=== PATIENT | male | born 1955 | race Caucasian/White ===

== ENCOUNTER 2021-03-04 11:37 | Outpatient (CLI) | payer MEDICARE, MEDICAID, SELFPAY ==
--- NOTE | 2021-03-04 11:50 | USCV_ITS ---
GleasonMarlo bearden Age: 65 Gender: M : 1955 Exam Date: 03/04/2021 12:20 Ordering Phys: Horace Concepcion MD Technologist: Lena Ralph Exam Location: [facility] [place] Indication: LV FUNCTION BP: 120 / 60 HR: 65 Rhythm: Sinus Technical Quality: Technically difficult study MEASUREMENTS (Male / Female) Normal Values 2D ECHO LV Diastolic Diameter PLAX 4.1 cm 4.2 - 5.9 / 3.9 - 5.3 cm LV Systolic Diameter PLAX 2.8 cm IVS Diastolic Thickness 1.2 cm 0.6 - 1.0 / 0.6 - 0.9 cm IVS Systolic Thickness 1.8 cm LVPW Diastolic Thickness 1.1 cm 0.6 - 1.0 / 0.6 - 0.9 cm LVPW Systolic Thickness 1.3 cm RV Chamber Size 3.5 cm LVOT Diameter 2.0 cm LV Ejection Fraction 2D Teich 59.6 % LV Ejection Fraction MOD 2C 63.5 % LV Ejection Fraction 2C AL 64.8 % LA Diameter 2.8 cm LA Width 3.5 cm LA Height 3.7 cm RA Width 3.1 cm RA Height 3.8 cm Aorta at Sinotubular Diameter 2.4 cm M-MODE Aortic Annulus Diameter 2.9 cm LA Ao Ratio MM 1.0 MV E Point Septal Separation 0.3 cm DOPPLER AV Peak Velocity 99.0 cm/s LVOT Peak Velocity 87.0 cm/s AV Area Cont Eq vti 2.8 cm squared AV Area Cont Eq pk 2.8 cm squared MV Area PHT 4.0 cm squared Mitral E to A Ratio 0.9 MV E' Velocity 36.5 cm/s Mitral E to MV E' Ratio 5.0 Mitral E to LV E' Lateral Ratio 5.1 Mitral E to LV E' Septal Ratio 4.8 TR Peak Velocity 264.0 cm/s TR Peak Gradient 27.9 mmHg Right Atrial Pressure 3.0 mmHg Pulmonary Artery Systolic Pressu 30.9 mmHg PV Peak Velocity 92.0 cm/s RV Acceleration Time 0.1 s RV Ejection Time 0.2 s RV AcT/ET 0.2 FINDINGS Left Ventricle Normal left ventricular size. LV systolic function is normal with EF of 55-60%. No regional wall motion abnormalities. Right Ventricle The right ventricle is normal in size and function. Right Atrium The right atrium is normal in size. Left Atrium The left atrium is normal in size. Mitral Valve Grossly normal. Trace mitral regurgitation Aortic Valve Structurally normal aortic valve without significant sclerosis or stenosis. There is no aortic regurgitation. Tricuspid Valve Structurally normal tricuspid valve without significant stenosis or regurgitation. Insufficient TR jet to calculate RVSP Pulmonic Valve Not well visualized Pericardium Normal pericardium without effusion. Aorta Normal ascending aorta dimension. CONCLUSIONS LV systolic function is normal with EF of 55-60% Trace mitral regurgitation Compared to prior echocardiogram from 2017, no significant changes are noted Jw Guillory MD (Electronically Signed) Final Date: 06 March 2021 20:17 S
--- NOTE | 2021-03-04 11:50 | XR_ITS ---
WS: [id number] Exam: XR chest 2V* [id number] Date/Time of Exam: 03/04/2021 12:20 PM Reason For Exam: rule out pneumonia Comparison 10/08/2017. Extensive bilateral pulmonary fibrosis and scarring. Bilateral pleural thickening noted. The lungs ar e fully inflated. Heart size is normal. The mediastinum and regional bony elements are unremarkable. No obvious acute pulmonary infiltrates are seen. XR/XR chest 2V* [id number] IMPRESSION: 1. Extensive bilateral pulmonary parenchymal scarring and fibrosis with bilater al chronic pleural thickening. 2. No obvious acute pulmonary infiltrate identified.
== END 2021-03-04 11:38 | disposition home or self-care (01) ==
PROVIDERS: PCP Family Medicine; Visit Provider Internal Medicine Pulmonary Disease
DX: R06.00 Dyspnea, unspecified (principal); J18.9 Pneumonia, unspecified organism; I34.0 Nonrheumatic mitral (valve) insufficiency
CPT/HCPCS: 71046; 93306

== ENCOUNTER 2021-05-07 21:26 | Inpatient (IN) | payer MEDICARE, MEDICAID, SELFPAY ==
[2021-05-07 21:27] VITALS: BP 117/70; PULSE 74; RESP 28; TEMP 36.8; O2SAT 92; BMI 30.4
--- NOTE | 2021-05-07 21:41 | XRR_ITS ---
PROCEDURE INFORMATION: Exam: XR Chest Exam date and time: 05/07/2021 9:41 PM Age: 66 years old Clinical indication: Cough and shortness of breath TECHNIQUE: Imaging protocol: XR of the chest. Views: 1 view. COMPARISON: CR XR chest 2V* [id number] 03/04/2021 1:00 PM FINDINGS: Lungs: Interstitial and patulous opacities in the mid and lower lungs. Pleural spaces: Unremarkable. No pleural effusion. No pneumothorax. Heart/Mediastinum: Unremarkable. No cardiomegaly. Bones/joints: Unremarkable. XR/XR chest 1V portable [id number] IMPRESSION: Interstitial and patulous opacities in the mid and lower lungs suspicious for multifocal pneumonia.
--- NOTE | 2021-05-07 21:41 | ECG_ITS ---
[facility] Test Date: 2021-05-07 Pat Name: Marlo Gleason Department: Room: Gender: Male Hostess: : 1955 Requested By: Nestor Delacruz Order Number: [id number] Joy MD: Tino Martell M.D. Measurements Intervals [place] Rate: 78 P: 68 ID: [id number] QRS: 87 QRSD: 102 T: 52 QT: 354 QTc: 404 Interpretive Statements SINUS RHYTHM WITH FIRST DEGREE AV BLOCK WITH OCCASIONAL SUPRAVENTRICULAR PREMATURE COMPLEXES Compared to ECG 03/01/2018 11:11:53 Atrial abnormality no longer present Electronically Signed On 05-08-2021 19:31:05 CDT by Tino Martell M.D. [id number]
--- NOTE | 2021-05-07 21:42 | W.ED.SOB ---
Documented by User: Nestor Delacruz MD 05/07/21 22:20 HPI - SOB/Dyspnea General: Chief Complaint: Shortness of Breath/Dyspnea Stated Complaint: SOB/COUGH Time Seen by Provider: 05/07/21 21:41 History of Present Illness: HPI Narrative: This patient is a 66-year-old male who presents to the emergency department complaint of shortness of breath. Patient does have a history of COPD and there does wear oxygen at home. Patient states he has not had any increase in his oxygen intake. Patient does follow with pulmonology. Will do medical evaluation treat as needed. MD elicited complaint: shortness of breath Pertinent past history: COPD Onset (ago): day(s) Timing: constant Severity: moderate Exacerbating factors: nothing Relieving factors: nothing and oxygen Associated symptoms: Reports no associated symptoms; Deny abdominal pain, chest pain, extremity pain, fever(s), lightheadedness, nausea, palpitations or vomiting Review of Systems General: Reports: 10 or more systems reviewed and unremarkable except in HPI and below Const: Denies: fever(s), chills, body aches or fatigue Eyes: Denies: change in vision or blurry vision ENMT: Denies: throat pain, hoarseness or mouth pain Card: Denies: chest pain, palpitations, irregular heart rhythm, edema, swelling of feet/ankles or lightheadedness Resp: Reports: dyspnea; Denies: productive cough, non-productive cough, wheezing or pain on inspiration GI: Denies: abdominal pain, nausea or vomiting : Denies: flank pain, dysuria, urinary frequency, urinary urgency or urinary hesitancy Musc: Denies: neck pain, back pain, extremity pain, extremity swelling, joint pain, joint swelling, joint redness, joint warmth or limited range of motion Skin/Breast: Denies: rash, pruritus, erythema or skin tenderness Neuro: Denies: headache(s), numbness in extremities or weakness in extremities Psych: Denies: anxiety or depression PFSH ED PFSH: Medical History Anxiety disorder COPD (chronic obstructive pulmonary disease) Tobacco use Surgical History Presence of coronary angioplasty implant and graft Social History Smoking and tobacco status: current every day smoker cigarettes Years cigarettes smoked: 60 Quit status (tobacco): not considering quitting Second hand smoke exposure: Yes Smoking risk assessment/counseling performed?: Yes Alcohol intake: former Caregiver/support person: Yes Lives independently: No Housing: Prison Marital status: / service: No Current occupational status: disabled Pets and animals: Yes History of recent travel: No Current gender identity: Male Physical Exam Const: COMMON NORMALS: no acute distress, average body habitus, patient oriented x3, no limitations, healthy appearing, alert and well nourished HENMT: COMMON NORMALS: normocephalic, atraumatic, hearing grossly normal bilaterally, external ears normal, EAC's normal, TM's normal bilaterally, Normal external nose present, Normal nasal mucous membranes and turbinates present, moist oral mucous membranes, oropharynx normal, dentition normal and gingiva normal HEAD & SCALP: normocephalic and atraumatic NOSE: Normal external nose present and Normal nasal mucous membranes and turbinates present EXTERNAL EAR: Yes external ears normal EXTERNAL AUDITORY CANAL: EAC's normal TYMPANIC MEMBRANE: TM's normal bilaterally Neck/C-Spine: COMMON NORMALS: full ROM, no lymphadenopathy, supple, no meningeal signs, no JVD, Thyroid normal and No carotid bruits THYROID: Thyroid normal Chest: COMMONS NORMALS: normal inspection of the chest, normal palpation of entire chest wall, normal inspection of the breasts and normal palpation of the breasts Breast/axilla inspection: Yes normal inspection of the breasts BREAST/AXILLA PALPATION: Yes normal palpation of the breasts Resp: COMMON NORMALS: normal respiratory effort, No retractions, No use of accessory muscles, clear to auscultation bilaterally and percussion normal AUSCULTATION: clear to auscultation bilaterally PERCUSSION: percussion normal Cardio: COMMON NORMALS: no JVD, regular rate, regular rhythm, S1 normal heart sound present, S2 normal heart sound present, No gallops present (Cardio), No clicks present (Cardio), No murmurs present (Cardio), No rub (Cardio) and Peripheral pulses 2+ throughout RATE: regular rate RHYTHM: regular rhythm HEART SOUNDS: S1 normal heart sound present and S2 normal heart sound present PERIPHERAL PULSES: Peripheral pulses 2+ throughout GI: COMMON NORMALS: Normal to inspection, nondistended, normoactive bowel sounds present, Soft to palpation, non-tender, No hepatosplenomegaly present, no masses and no bruits PALPATION: Yes Soft to palpation and Yes No hepatosplenomegaly present : COMMON NORMALS: Yes no CVA tenderness BLADDER/KIDNEY EXAM: Yes no CVA tenderness Back/Pelvis: COMMON NORMALS: no CVA tenderness, thoracic and lumbar spine normal to inspection, no thoracic nor lumbar tenderness, thoraco-lumbar ROM normal and straight leg raise negative bilaterally Extremity: COMMON NORMALS: normal to inspection, full ROM, capillary refill normal, no joint enlargement, no clubbing, cyanosis or edema, no calf tenderness and no pedal edema Neuro: COMMON NORMALS: patient oriented x3 SENSORIUM/ORIENTATION: Yes alert MENINGEAL SIGNS: Yes no meningeal signs Course Vital Signs: Vital signs: Vital Signs Temperature 98.2 F 05/07/21 21:27 Pulse Rate 71 05/07/21 22:40 Respiratory Rate 22 H 05/07/21 22:40 Blood Pressure 126/68 05/07/21 22:40 Pulse Oximetry 96 05/07/21 22:40 MDM - SOB/Dyspnea Lab Data: Labs: Lab Results 05/07/21 05/07/21 05/07/21 Range/Units 22:03 22:10 22:10 WBC 14.5 H (4.0-10.0) 10^3/ uL RBC 4.78 (4.1-5.3) 10^6/u L Hgb 11.7 (11.7-16.6) g/dL Hct 39.3 L (42.0-52.0) % MCV 82.2 (80-94) fl MCH 24.5 L (28.0-34.0) pg MCHC 29.8 L (30.0-36.0) g/dL RDW 18.1 H (12.1-15.1) % Plt Count 278 (130-400) 10^3/c mm MPV 9.8 (7.4-10.4) fL Neut % (Auto) 69.8 % Lymph % (Auto) 13.6 % [place] % (Auto) 12.4 % Eos % (Auto) 3.0 % Baso % (Auto) 0.3 % Neut # (Auto) 10.12 H (1.8-7.7) 10^3/u L Lymph # (Auto) 2.0 (0.8-4.8) 10^3/u L [place] # (Auto) 1.8 H (0.2-0.9) 10^3/u L Eos # (Auto) 0.4 (0.0-0.8) 10^3/u L Baso # (Auto) 0.1 (0.0-0.1) 10^3/u L Nucleated RBC % (a uto) 0 % Nucleated RBCs # 0.0 /100WBC PT 13.80 (12.1-14.9) SECO NDS INR 1.03 (0.8-1.2) APTT 38.7 H (23.9-36.7) SECO NDS D-Dimer 0.60 H (0-0.59) ug/mIFE U Sodium (136-145) mmol/L Potassium (3.5-5.1) mmol/L Chloride (98-107) mmol/L Carbon Dioxide (22-29) mmol/L Anion Gap (5-19) BUN (8-23) mg/dL Creatinine (0.7-1.2) mg/dL GFR Calculation (90-130) mL/min Glucose (65-115) mg/dL Calculated Osmolal ity (285-295) mOsm/k g Calcium (8.5-10.5) mg/dL Total Bilirubin (0.15-1.2) mg/dL AST (0-40) U/L ALT (0-41) U/L Alkaline Phosphata se (40-130) IU/L Troponin T Gen 5 n g/L (0-15) ng/L NT-Pro-B Natriuret Pep (0-125) pg/mL Total Protein (6.6-8.7) g/dL Albumin (3.5-5.2) g/dL Globulin (1.3-4.6) g/dL Urine Color (Yellow) Urine Appearance (CLEAR) Urine pH (5-7) Ur Specific Gravit y (1.005-1.030) Urine Protein (Negative) Urine Glucose (UA) (Normal) Urine Ketones (Negative) Urine Blood (Negative) Urine Nitrate (Negative) Urine Bilirubin (Negative) Urine Urobilinogen (Negative) mg/dL Ur Leukocyte Denise ase (Negative) Urine RBC (0-2) /hpf Urine WBC (0-5) /hpf Ur Squamous Epith Cells (0-5) /hpf Amorphous Sediment /hpf Urine Bacteria (NONE) /hpf Urine Mucus /hpf SARS-CoV-2 Ag (Rap id) Negative (Negative) 05/07/21 05/07/21 05/07/21 Range/Units 22:10 22:10 22:35 WBC (4.0-10.0) 10^3/ uL RBC (4.1-5.3) 10^6/u L Hgb (11.7-16.6) g/dL Hct (42.0-52.0) % MCV (80-94) fl MCH (28.0-34.0) pg MCHC (30.0-36.0) g/dL RDW (12.1-15.1) % Plt Count (130-400) 10^3/c mm MPV (7.4-10.4) fL Neut % (Auto) % Lymph % (Auto) % [place] % (Auto) % Eos % (Auto) % Baso % (Auto) % Neut # (Auto) (1.8-7.7) 10^3/u L Lymph # (Auto) (0.8-4.8) 10^3/u L [place] # (Auto) (0.2-0.9) 10^3/u L Eos # (Auto) (0.0-0.8) 10^3/u L Baso # (Auto) (0.0-0.1) 10^3/u L Nucleated RBC % (a uto) % Nucleated RBCs # /100WBC PT (12.1-14.9) SECO NDS INR (0.8-1.2) APTT (23.9-36.7) SECO NDS D-Dimer (0-0.59) ug/mIFE U Sodium 136 (136-145) mmol/L Potassium 4.9 (3.5-5.1) mmol/L Chloride 100 (98-107) mmol/L Carbon Dioxide 28 (22-29) mmol/L Anion Gap 12.9 (5-19) BUN 26 H (8-23) mg/dL Creatinine 1.7 H (0.7-1.2) mg/dL GFR Calculation 40.8 L (90-130) mL/min Glucose 194 H (65-115) mg/dL Calculated Osmolal ity 292 (285-295) mOsm/k g Calcium 8.0 L (8.5-10.5) mg/dL Total Bilirubin 0.3 (0.15-1.2) mg/dL AST 7 (0-40) U/L ALT 7 (0-41) U/L Alkaline Phosphata se 102 (40-130) IU/L Troponin T Gen 5 n g/L 49 H (0-15) ng/L NT-Pro-B Natriuret Pep 1029 H (0-125) pg/mL Total Protein 6.6 (6.6-8.7) g/dL Albumin 3.2 L (3.5-5.2) g/dL Globulin 3.4 (1.3-4.6) g/dL Urine Color Straw (Yellow) Urine Appearance Clear (CLEAR) Urine pH 5 (5-7) Ur Specific Gravit y 1.010 (1.005-1.030) Urine Protein Trace (Negative) Urine Glucose (UA) Norm (Normal) Urine Ketones Negative (Negative) Urine Blood Neg (Negative) Urine Nitrate Negative (Negative) Urine Bilirubin Neg (Negative) Urine Urobilinogen Norm (Negative) mg/dL Ur Leukocyte Denise ase Negative (Negative) Urine RBC 15-25 H (0-2) /hpf Urine WBC 5-10 H (0-5) /hpf Ur Squamous Epith Cells 0-4 H (0-5) /hpf Amorphous Sediment 1+ /hpf Urine Bacteria Trace (NONE) /hpf Urine Mucus 2+ /hpf SARS-CoV-2 Ag (Rap id) (Negative) Imaging Data^: CXR: Attestation: I personally reviewed and interpreted this imaging study as follows: Radiologist's impression: IMPRESSION: Interstitial and patulous opacities in the mid and lower lungs suspicious for multifocal pneumonia. EKG Data^: EKG 1: Attestation: I personally reviewed and interpreted this EKG as follows: EKG Interpretation Date: 05/07/21 EKG interpretation time: 21:49 Prior EKG tracings: not available for review Interpretation: Sinus rhythm with a first-degree AV block nonspecific EKG changes heart rate 78 Discharge Plan Discharge Patient Disposition: Admitted As Inpatient Clinical Impression: Community acquired pneumonia Condition: Stable Coding Level of Care Code ED Hat Lacer for Chg Fwd Exam Comprehensive Documented by User: Rell Chen MD 05/08/21 00:05 HPI - SOB/Dyspnea General: Chief Complaint: Shortness of Breath/Dyspnea Stated Complaint: SOB/COUGH Time Seen by Provider: 05/07/21 21:41 PFSH ED PFSH: Medical History Anxiety disorder COPD (chronic obstructive pulmonary disease) Tobacco use Surgical History Presence of coronary angioplasty implant and graft Social History Smoking and tobacco status: current every day smoker cigarettes Years cigarettes smoked: 60 Quit status (tobacco): not considering quitting Second hand smoke exposure: Yes Smoking risk assessment/counseling performed?: Yes Alcohol intake: former Caregiver/support person: Yes Lives independently: No Housing: Prison Marital status: / service: No Current occupational status: disabled Pets and animals: Yes History of recent travel: No Current gender identity: Male Course Vital Signs: Vital signs: Vital Signs Temperature 98.2 F 05/07/21 21:27 Pulse Rate 71 05/07/21 22:40 Respiratory Rate 22 H 05/07/21 22:40 Blood Pressure 126/68 05/07/21 22:40 Pulse Oximetry 96 05/07/21 22:40 MDM - SOB/Dyspnea MDM Narrative: Medical decision making narrative: I took patient over from [place]. Patient does have a pneumonia. Rapid Covid was negative we will send off another Covid test. He is requiring increased oxygen here. Patient had IV antibiotics. Spoke to hospitalist will admit. Lab Data: Labs: Lab Results 05/07/21 05/07/21 05/07/21 Range/Units 22:03 22:10 22:10 WBC 14.5 H (4.0-10.0) 10^3/ uL RBC 4.78 (4.1-5.3) 10^6/u L Hgb 11.7 (11.7-16.6) g/dL Hct 39.3 L (42.0-52.0) % MCV 82.2 (80-94) fl MCH 24.5 L (28.0-34.0) pg MCHC 29.8 L (30.0-36.0) g/dL RDW 18.1 H (12.1-15.1) % Plt Count 278 (130-400) 10^3/c mm MPV 9.8 (7.4-10.4) fL Neut % (Auto) 69.8 % Lymph % (Auto) 13.6 % [place] % (Auto) 12.4 % Eos % (Auto) 3.0 % Baso % (Auto) 0.3 % Neut # (Auto) 10.12 H (1.8-7.7) 10^3/u L Lymph # (Auto) 2.0 (0.8-4.8) 10^3/u L [place] # (Auto) 1.8 H (0.2-0.9) 10^3/u L Eos # (Auto) 0.4 (0.0-0.8) 10^3/u L Baso # (Auto) 0.1 (0.0-0.1) 10^3/u L Nucleated RBC % (a uto) 0 % Nucleated RBCs # 0.0 /100WBC PT 13.80 (12.1-14.9) SECO NDS INR 1.03 (0.8-1.2) APTT 38.7 H (23.9-36.7) SECO NDS D-Dimer 0.60 H (0-0.59) ug/mIFE U Sodium (136-145) mmol/L Potassium (3.5-5.1) mmol/L Chloride (98-107) mmol/L Carbon Dioxide (22-29) mmol/L Anion Gap (5-19) BUN (8-23) mg/dL Creatinine (0.7-1.2) mg/dL GFR Calculation (90-130) mL/min Glucose (65-115) mg/dL Calculated Osmolal ity (285-295) mOsm/k g Calcium (8.5-10.5) mg/dL Total Bilirubin (0.15-1.2) mg/dL AST (0-40) U/L ALT (0-41) U/L Alkaline Phosphata se (40-130) IU/L Troponin T Gen 5 n g/L (0-15) ng/L NT-Pro-B Natriuret Pep (0-125) pg/mL Total Protein (6.6-8.7) g/dL Albumin (3.5-5.2) g/dL Globulin (1.3-4.6) g/dL Urine Color (Yellow) Urine Appearance (CLEAR) Urine pH (5-7) Ur Specific Gravit y (1.005-1.030) Urine Protein (Negative) Urine Glucose (UA) (Normal) Urine Ketones (Negative) Urine Blood (Negative) Urine Nitrate (Negative) Urine Bilirubin (Negative) Urine Urobilinogen (Negative) mg/dL Ur Leukocyte Denise ase (Negative) Urine RBC (0-2) /hpf Urine WBC (0-5) /hpf Ur Squamous Epith Cells (0-5) /hpf Amorphous Sediment /hpf Urine Bacteria (NONE) /hpf Urine Mucus /hpf SARS-CoV-2 Ag (Rap id) Negative (Negative) 05/07/21 05/07/21 05/07/21 Range/Units 22:10 22:10 22:35 WBC (4.0-10.0) 10^3/ uL RBC (4.1-5.3) 10^6/u L Hgb (11.7-16.6) g/dL Hct (42.0-52.0) % MCV (80-94) fl MCH (28.0-34.0) pg MCHC (30.0-36.0) g/dL RDW (12.1-15.1) % Plt Count (130-400) 10^3/c mm MPV (7.4-10.4) fL Neut % (Auto) % Lymph % (Auto) % [place] % (Auto) % Eos % (Auto) % Baso % (Auto) % Neut # (Auto) (1.8-7.7) 10^3/u L Lymph # (Auto) (0.8-4.8) 10^3/u L [place] # (Auto) (0.2-0.9) 10^3/u L Eos # (Auto) (0.0-0.8) 10^3/u L Baso # (Auto) (0.0-0.1) 10^3/u L Nucleated RBC % (a uto) % Nucleated RBCs # /100WBC PT (12.1-14.9) SECO NDS INR (0.8-1.2) APTT (23.9-36.7) SECO NDS D-Dimer (0-0.59) ug/mIFE U Sodium 136 (136-145) mmol/L Potassium 4.9 (3.5-5.1) mmol/L Chloride 100 (98-107) mmol/L Carbon Dioxide 28 (22-29) mmol/L Anion Gap 12.9 (5-19) BUN 26 H (8-23) mg/dL Creatinine 1.7 H (0.7-1.2) mg/dL GFR Calculation 40.8 L (90-130) mL/min Glucose 194 H (65-115) mg/dL Calculated Osmolal ity 292 (285-295) mOsm/k g Calcium 8.0 L (8.5-10.5) mg/dL Total Bilirubin 0.3 (0.15-1.2) mg/dL AST 7 (0-40) U/L ALT 7 (0-41) U/L Alkaline Phosphata se 102 (40-130) IU/L Troponin T Gen 5 n g/L 49 H (0-15) ng/L NT-Pro-B Natriuret Pep 1029 H (0-125) pg/mL Total Protein 6.6 (6.6-8.7) g/dL Albumin 3.2 L (3.5-5.2) g/dL Globulin 3.4 (1.3-4.6) g/dL Urine Color Straw (Yellow) Urine Appearance Clear (CLEAR) Urine pH 5 (5-7) Ur Specific Gravit y 1.010 (1.005-1.030) Urine Protein Trace (Negative) Urine Glucose (UA) Norm (Normal) Urine Ketones Negative (Negative) Urine Blood Neg (Negative) Urine Nitrate Negative (Negative) Urine Bilirubin Neg (Negative) Urine Urobilinogen Norm (Negative) mg/dL Ur Leukocyte Denise ase Negative (Negative) Urine RBC 15-25 H (0-2) /hpf Urine WBC 5-10 H (0-5) /hpf Ur Squamous Epith Cells 0-4 H (0-5) /hpf Amorphous Sediment 1+ /hpf Urine Bacteria Trace (NONE) /hpf Urine Mucus 2+ /hpf SARS-CoV-2 Ag (Rap id) (Negative) Discharge Plan Discharge Patient Disposition: Admitted As Inpatient Clinical Impression: Community acquired pneumonia Condition: Stable Coding Level of Care Code ED Hat Lacer for Naresh Fwd Exam Comprehensive
[2021-05-07] MEDS: dexamethasone 10 mg/mL INJ IV (22:23)
[2021-05-07 22:40] VITALS: BP 126/68; PULSE 71; RESP 22; O2SAT 96
[2021-05-07 22:41] LABS: INR 1.03 (0.8-1.2)
[2021-05-07 22:42] LABS: Partial Thromboplastin Time 38.7 SECONDS (23.9-36.7)
[2021-05-07 22:49] LABS: Basophils # 0.1 10^3/uL (0.0-0.1); Basophils % 0.3 %; Eosinophils # 0.4 10^3/uL (0.0-0.8); Hematocrit 39.3 % (42.0-52.0); Hemoglobin 11.7 g/dL (11.7-16.6); Lymphocytes % 13.6 %; Mean Corpuscular HGB Conc 29.8 g/dL (30.0-36.0); Mean Corpuscular Hemoglobin 24.5 pg (28.0-34.0); Mean Corpuscular Volume 82.2 fl (80-94); Mean Platelet Volume 9.8 fL (7.4-10.4); Monocytes # 1.8 10^3/uL (0.2-0.9); Monocytes % 12.4 %; Neutrophils # 10.12 10^3/uL (1.8-7.7); Neutrophils % 69.8 %; Nucleated Red Blood Cells % 0 %; Platelet Count 278 10^3/cmm (130-400); Red Blood Count 4.78 10^6/uL (4.1-5.3); Red Cell Distribution Width 18.1 % (12.1-15.1); White Blood Count 14.5 10^3/uL (4.0-10.0)
[2021-05-07 22:56] LABS: SARS Covid-2 Antigen Negative (Negative)
[2021-05-07 23:03] LABS: Troponin T (5th) Once 49 ng/L (0-15)
[2021-05-07 23:04] LABS: Urine Appearance Clear (CLEAR); Urine Color Straw (Yellow)
[2021-05-07 23:05] LABS: Bilirubin Urine Neg (Negative); Blood Urine Neg (Negative); Glucose Urine UA Norm (Normal); Ketones Urine Negative (Negative); Leukocyte Esterase Urine Negative (Negative); Nitrate Urine Negative (Negative); Protein Urine Trace (Negative); Urobilinogen Urine Norm (Negative); pH Urine 5 (5-7)
[2021-05-07 23:06] LABS: Add Urine Microscopic? YES; Amorphous Sediment Urine 1+ /hpf; Bacteria Urine TRACE /hpf; Mucus Urine 2+ /hpf; RBC Urine 15-25 /hpf (0-2); Squamous Epithelial Cell Urine 0-4 /hpf (0-5)
[2021-05-07 23:07] LABS: Add Urine Culture? No
[2021-05-07 23:12] LABS: Alanine Aminotransferase 7 U/L (0-41); Albumin Level 3.2 g/dL (3.5-5.2); Alkaline Phosphatase 102 IU/L (40-130); Anion Gap 12.9 (5-19); Aspartate Amino Transferase 7 U/L (0-40); Blood Urea Nitrogen 26 mg/dL (8-23); Carbon Dioxide 28 mmol/L (22-29); Chloride 100 mmol/L (98-107); Globulin 3.4 g/dL (1.3-4.6); Glomerular Filtration Rate 40.8 mL/min (90-130); Glucose 194 mg/dL (65-115); NT Pro B Type Natriuretic Pept 1029 pg/mL (0-125); Osmolality Calculated 292 mOsm/kg (285-295); Potassium 4.9 mmol/L (3.5-5.1); Sodium 136 mmol/L (136-145); Total Bilirubin 0.3 mg/dL (0.15-1.2); Total Protein 6.6 g/dL (6.6-8.7)
[2021-05-08] VITALS (16 sets, daily range): BP systolic 93–126; BP diastolic 58–87; PULSE 60–96; RESP 16–22; TEMP 36.3–36.7; O2SAT 91–97; BMI 30.4
[2021-05-08] MEDS: cefTRIAXone 1,000 MG in sodium chloride 0.9% (plus) 50 ML 100 MG IV (00:12)
[2021-05-08 00:29] LABS: Procalcitonin 0.61 ng/mL (0-0.5)
[2021-05-08] MEDS: azithromycin 500 MG in sodium chloride 0.9% 250 ML 250 MG IV (01:07)
--- NOTE | 2021-05-08 03:06 | P.HP_ITS ---
Providers/Chief Complaint Admitting Physician: Lilian Montez MD Chief Complaint: SOB/COUGH History of Present Illness Marlo Gleason is a 66 year old male who resides at long-term in [place] who presented to the emergency room with chief complaint of increasing difficulty breathing and cough. He has a history of COPD for which she is on oxygen therapy chronically. Baseline oxygen is 2 L. He reports general malaise, increasing productive cough and headache recently. He denies any fever, nausea, vomiting or diarrhea. No reported loss of taste or smell. He has had to increase his oxygen to around 4 L by nasal cannula to maintain saturations. He is unsure if he has had any known Covid contacts. He has not received Covid vaccination. Work-up in the emergency room revealed evidence of pneumonia on chest x-ray, mild elevation in procalcitonin level, leukocytosis and hypoxemia. Patient received Rocephin and azithromycin. He had also received dexamethasone in the emergency room given initial strong suspicion for possibility of Covid. Rapid Covid antigen was negative. Covid PCR has been sent. He is being admitted for further evaluation and treatment. Review of Systems Const: Reports: chills, body aches and fatigue; Denies: fever(s) Eyes: Denies: eye discomfort ENMT: Denies: throat pain, hoarseness, nasal congestion, sinus pain or other (loss of taste and smell) Card: Reports: dyspnea on exertion; Denies: chest pain, palpitations or edema Resp: Reports: dyspnea, productive cough, non-productive cough and wheezing; Denies: pain on inspiration or hemoptysis GI: Denies: abdominal pain, nausea, vomiting, diarrhea, constipation, hematochezia or melena : Reports: urinary hesitancy; Denies: urinary frequency Musc: Reports: back pain and muscle weakness Skin/Breast: Denies: rash, pruritus or sores Neuro: Reports: headache(s), numbness in extremities (From diabetic neuropathy) and weakness in extremities (general rather than focal) Psych: Reports: anxiety Gabe/Lymph: Denies: easy bruising or easy bleeding Medications/Allergies Home Medications Medication Instructions Recorded Confirmed Last Taken Type albuterol sulfate 2.5 mg INHALATION Q4H PRN 01/21/21 05/08/21 Unknown History amlodipine 2.5 mg tablet 2.5 mg PO DAILY 01/21/21 05/08/21 Unknown History aspirin 81 mg tablet,delayed 81 mg PO DAILY 01/21/21 05/08/21 Unknown History release atorvastatin 40 mg tablet 40 mg PO DAILY 01/21/21 05/08/21 Unknown History buspirone 10 mg tablet 10 mg PO TID 01/21/21 05/08/21 Unknown History cetirizine 5 mg tablet 5 mg PO DAILY 01/21/21 05/08/21 Unknown History citalopram 10 mg tablet 10 mg PO DAILY 01/21/21 05/08/21 Unknown History ferrous sulfate 325 mg (65 mg 325 mg PO BID 01/21/21 05/08/21 Unknown History iron) tablet gabapentin 100 mg capsule 100 mg PO DAILY 01/21/21 05/08/21 Unknown History guaifenesin 1,200 mg tablet, 1,200 mg PO BID 01/21/21 05/08/21 Unknown History extended release 12 hr hydrocodone 5 mg-acetaminophen 325 1 tab PO Q8H PRN 01/21/21 05/08/21 Unknown H istory mg tablet insulin glargine 100 unit/mL (3 20 unit SUBCUT QAM ml 01/21/21 05/08/21 Unknown History mL) subcutaneous pen ipratropium 0.5 mg-albuterol 3 mg 3 ml INHALATION QID PRN 01/21/21 05/08/21 Unknown History (2.5 mg base)/3 mL nebulization soln lorazepam 1 mg tablet 1 mg PO BID PRN 01/21/21 05/08/21 Unknown History metoprolol tartrate 25 mg tablet 25 mg PO BID 01/21/21 05/08/21 Unknown History mirtazapine 30 mg tablet 30 mg PO DAILY 01/21/21 05/08/21 Unknown History nitroglycerin 0.4 mg sublingual 0.4 mg SUBLINGUAL Q5M PRN 01/21/21 05/08/21 Unknown History tablet omeprazole 20 mg capsule,delayed 20 mg PO DAILY 01/21/21 05/08/21 Unknown H istory release tamsulosin 0.4 mg capsule 0.4 mg PO DAILY 01/21/21 05/08/21 Unknown History venlafaxine 75 mg capsule,extended 75 mg PO DAILY 01/21/21 05/08/21 Unknown History release 24 hr acetaminophen [Mapap Arthritis 650 mg PO Q12H 05/08/21 05/08/21 Unknown History Pain] bisacodyl 10 mg [place] DAILY PRN 05/08/21 05/08/21 Unknown History [id number]-[id number]-[id number] 1 inh INHALATION DAILY 05/08/21 05/08/21 Unknown History [Trelegy Ellipta] nicotine 1 patch TRANSDERMAL DAILY PRN 05/08/21 05/08/21 Unknown History polyethylene glycol 3350 [Miralax] 17 g PO DAILY PRN 05/08/21 05/08/21 Unknown History senna 8.6 mg PO BID PRN 05/08/21 05/08/21 Unknown History sodium phosphates [Enema 118 ml [place] PRN 05/08/21 05/08/21 Unknown History Disposable] Allergies Allergy/AdvReac Type Severity Reaction Status Date / Time No Known Allergies Allergy Verified 04/02/21 09:11 PFSH Acute PFSH: Medical History Anxiety disorder CAD (coronary artery disease) CKD (chronic kidney disease) COPD (chronic obstructive pulmonary disease) Diabetes mellitus GERD (gastroesophageal reflux disease) Gout Hypertension Prostatic hypertrophy PVD (peripheral vascular disease) Skin cancer Specific type unknown Tobacco use Surgical History (Updated 05/08/21 @ 06:21 by Lilian Montez MD) History of cholecystectomy History of coronary artery stent placement X2 History of skin surgery Left neck for skin cancer Presence of coronary angioplasty implant and graft Family History (Updated 05/08/21 @ 06:33 by Lilian Montez MD) Mother Cancer Father CAD (coronary artery disease) Social History (Updated 05/08/21 @ 06:33 by Lilian Montez MD) Smoking and tobacco status: current every day smoker cigarettes Years cigaret jillian smoked: 62 Quit status (tobacco): not considering quitting Second hand smoke exposure: Yes Alcohol intake: former Substance/Drug Use: never Caregiver/support person: Yes Lives independently: No Housing: Retirement Marital status: / service: No Current occupational status: disabled Pets and animals: Yes Current gender identity: Male Vitals/I&O/Wt Last Vital Signs Temp 97.8 F 05/08/21 02:00 Pulse 92 05/08/21 02:00 Resp 18 05/08/21 02:00 BP 93/58 05/08/21 02:00 Pulse Ox 95 05/08/21 02:00 05/07/21 05/07/21 05/08/21 14:59 22:59 06:59 Intake Total 50 / 50 Output Total 350 / 350 Balance -300 / -300 Weight last 48 hrs Weight 90.718 kg Physical Exam Narrative: EXAM NARRATIVE: Constitutional: alert, ill appearing HEENT: normocephalic, extraocular movements are intact, no rhinorrhea, dry mucous membranes Neck: supple Respiratory: Scattered wheezes, more prominent on the left than the right, no accessory muscle use Cardiovascular: Regular rhythm, no murmurs, pulses are equal Abdomen: soft, non tender, positive bowel sounds Extremities: no edema, no cyanosis Skin: Has some hyperpigmentation on his feet and areas where he has had previous diabetic ulcers, all look healed, chronic appearing sore to the left cheek, surgical scar left neck Neuro: speech clear once he is more awake, moves all extremities Psych: cooperative Data : 05/07/21 22:10 05/07/21 22:10 Micro: Microbiology 05/07/21 23:58 Blood Culture - Preliminary Blood SPECIMEN COLLECTED 05/07/21 23:55 Blood Culture - Preliminary Blood SPECIMEN COLLECTED Other data: Laboratory Results WBC 14.5 10^3/uL (4.0-10.0) H 05/07/21 22:10 RBC 4.78 10^6/uL (4.1-5.3) 05/07/21 22:10 Hgb 11.7 g/dL (11.7-16.6) 05/07/21 22:10 Hct 39.3 % (42.0-52.0) L 05/07/21 22:10 MCV 82.2 fl (80-94) 05/07/21 22:10 MCH 24.5 pg (28.0-34.0) L 05/07/21 22:10 MCHC 29.8 g/dL (30.0-36.0) L 05/07/21 22:10 RDW 18.1 % (12.1-15.1) H 05/07/21 22:10 Plt Count 278 10^3/cmm (130-400) 05/07/21 22:10 MPV 9.8 fL (7.4-10.4) 05/07/21 22:10 Neut % (Auto) 69.8 % 05/07/21 22:10 Lymph % (Auto) 13.6 % 05/07/21 22:10 [place] % (Auto) 12.4 % 05/07/21 22:10 Eos % (Auto) 3.0 % 05/07/21 22:10 Baso % (Auto) 0.3 % 05/07/21 22:10 Neut # (Auto) 10.12 10^3/uL (1.8-7.7) H 05/07/21 22:10 Lymph # (Auto) 2.0 10^3/uL (0.8-4.8) 05/07/21 22:10 [place] # (Auto) 1.8 10^3/uL (0.2-0.9) H 05/07/21 22:10 Eos # (Auto) 0.4 10^3/uL (0.0-0.8) 05/07/21 22:10 Baso # (Auto) 0.1 10^3/uL (0.0-0.1) 05/07/21 22:10 Nucleated RBC % (auto) 0 % 05/07/21 22:10 Nucleated RBCs # 0.0 /100WBC 05/07/21 22:10 PT 13.80 SECONDS (12.1-14.9) 05/07/21 22:10 INR 1.03 (0.8-1.2) 05/07/21 22:10 APTT 38.7 SECONDS (23.9-36.7) H 05/07/21 22:10 D-Dimer 0.60 ug/mIFEU (0-0.59) H 05/07/21 22:10 Sodium 136 mmol/L (136-145) 05/07/21 22:10 Potassium 4.9 mmol/L (3.5-5.1) 05/07/21 22:10 Chloride 100 mmol/L (98-107) 05/07/21 22:10 Carbon Dioxide 28 mmol/L (22-29) 05/07/21 22:10 Anion Gap 12.9 (5-19) 05/07/21 22:10 BUN 26 mg/dL (8-23) H 05/07/21 22:10 Creatinine 1.7 mg/dL (0.7-1.2) H 05/07/21 22:10 GFR Calculation 40.8 mL/min (90-130) L 05/07/21 22:10 Glucose 194 mg/dL (65-115) H 05/07/21 22:10 Calculated Osmolality 292 mOsm/kg (285-295) 05/07/21 22:10 Calcium 8.0 mg/dL (8.5-10.5) L 05/07/21 22:10 Total Bilirubin 0.3 mg/dL (0.15-1.2) 05/07/21 22:10 AST 7 U/L (0-40) 05/07/21 22:10 ALT 7 U/L (0-41) 05/07/21 22:10 Alkaline Phosphatase 102 IU/L (40-130) 05/07/21 22:10 Troponin T Gen 5 ng/L 49 ng/L (0-15) H 05/07/21 22:10 NT-Pro-B Natriuret Pep 1029 pg/mL (0-125) H 05/07/21 22:10 Total Protein 6.6 g/dL (6.6-8.7) 05/07/21 22:10 Albumin 3.2 g/dL (3.5-5.2) L 05/07/21 22:10 Globulin 3.4 g/dL (1.3-4.6) 05/07/21 22:10 Procalcitonin 0.61 ng/mL (0-0.5) H 05/07/21 22:10 Urine Color Straw (Yellow) 05/07/21 22:35 Urine Appearance Clear (CLEAR) 05/07/21 22:35 Urine pH 5 (5-7) 05/07/21 22:35 Ur Specific Gap 1.010 (1.005-1.030) 05/07/21 22:35 Urine Protein Trace (Negative) 05/07/21 22:35 Urine Glucose (UA) Norm (Normal) 05/07/21 22:35 Urine Ketones Negative (Negative) 05/07/21 22:35 Urine Blood Neg (Negative) 05/07/21 22:35 Urine Nitrate Negative (Negative) 05/07/21 22:35 Urine Bilirubin Neg (Negative) 05/07/21 22:35 Urine Urobilinogen Norm mg/dL (Negative) 05/07/21 22:35 Ur Leukocyte Esterase Negative (Negative) 05/07/21 22:35 Urine RBC 15-25 /hpf (0-2) H 05/07/21 22:35 Urine WBC 5-10 /hpf (0-5) H 05/07/21 22:35 Ur Squamous Epith Cells 0-4 /hpf (0-5) H 05/07/21 22:35 Amorphous Sediment 1+ /hpf 05/07/21 22:35 Urine Bacteria Trace /hpf (NONE) 05/07/21 22:35 Urine Mucus 2+ /hpf 05/07/21 22:35 SARS-CoV-2 Ag (Rapid) Negative (Negative) 05/07/21 22:03 Impressions Chest X-Ray 05/07/21 21:41 IMPRESSION: Interstitial and patulous opacities in the mid and lower lungs suspicious for multifocal pneumonia. A&P Assessment and plan (1) Pneumonia: Healthcare associated bacterial infection seems more likely given leukocytosis with left shift, lack of lymphocytopenia, elevation in procalcitonin Covid pneumonia is also within the differential diagnosis Status: Acute Qualifiers: Pneumonia type: due to unspecified organism Laterality: bilateral Lung location: unspecified part of lung Qualified Code(s): J18.9 - Pneumonia, unspecified organism (2) COPD (chronic obstructive pulmonary disease): Acute on chronic secondary to above Status: Chronic Qualifiers: COPD type: emphysema Emphysema type: centrilobular Qualified Code(s): J43.2 - Centrilobular emphysema (3) On home oxygen therapy: Chronically on 2 L, currently requiring 4 Status: Chronic (4) Diabetes mellitus: Status: Chronic Qualifiers: Diabetes mellitus type: type 2 Diabetes mellitus assisted insulin use: with life skills trainer use Diabetes mellitus complication status: with kidney complications Chronic kidney disease stage: stage 3 (moderate) Chronic kidney disease stage 3 subtype: stage 3b (GFR 30-44) Diabetes mellitus complication detail: with chronic kidney disease Qualified Code(s): E11.22 - Type 2 diabetes mellitus with diabetic chronic kidney disease; N18.32 - Chronic kidney disease, stage 3b; Z79.4 - care home (current) use of insulin (5) CAD (coronary artery disease): Status: Chronic Qualifiers: Coronary Disease-Associated Artery/Lesion type: [place] artery [place] vs. transplanted heart: [place] heart Associated angina: without angina Qualified Code(s): I25.10 - Atherosclerotic heart disease of [place] coronary artery without angina pectoris (6) Tobacco use: Status: Chronic Additional A&P Information Elevated BNP Inpatient admission Zosyn and azithromycin Send bacterial antigens Sputum culture Follow-up pending blood cultures Pulmonary toilet Incentive spirometer/flutter valve Oxygen as needed Follow-up pending Covid PCR We will go on and cover empirically with dexamethasone Continue long-acting and short acting insulin Monitor blood sugars response to dexamethasone Check some other baseline inflammatory markers Echocardiogram Serial cardiac enzymes Lovenox for DVT prophylaxis Continue home aspirin, statin, sublingual nitroglycerin as needed and metoprolol Continue home BuSpar, citalopram, Effexor, mirtazapine and as needed Ativan Continue home gabapentin, hydrocodone Continue home PPI Other home medications as ordered Supportive care otherwise Currently anticipate discharge back to skilled facility Findings, concerns and plans discussed with patient and he was given an opportunity to ask questions. He is aware that an additional Covid test has been sent. Full code Attestations Medical Necessity Statement*: Anticipate stay greater than 2 midnights in patient with with multifocal pneumonia, requiring oxygen therapy. Currently appears to be bacterial infection but also need to evaluate for possibility of viral process. Plans are as indicated. Coding Level of Care Code Acute Chemical Reclamation Equipment Operator for [facility] Fwd Diagnoses Pneumonia J18.9 Pneumonia type: due to unspecified organism Laterality: bilateral Lung location: unspecified part of lung COPD (chronic obstructive pulmonary disease) J43.2 COPD type: emphysema Emphysema type: centrilobular On home oxygen therapy Z99.81 Diabetes mellitus E11.22; N18.32; Z79.4 Diabetes mellitus type: type 2 Diabetes mellitus life skills trainer insulin use: with assisted use Diabetes mellitus complication status: with kidney complications Chronic kidney disease stage: stage 3 (moderate) Chronic kidney disease stage 3 subtype: stage 3b (GFR 30-44) Diabetes mellitus complication detail: with chronic kidney disease CAD (coronary artery disease) I25.10 Coronary Disease-Associated Artery/Lesion type: [place] artery [place] vs. transplanted heart: [place] heart Associated angina: without angina Tobacco use Z72.0
--- NOTE | 2021-05-08 04:31 | PC.NURSE ---
i reported low temp 97.4 to nurse
--- NOTE | 2021-05-08 06:28 | USCV_ITS ---
Marlo Gleason Age: 66 Gender: M : 1955 Exam Date: 05/08/2021 16:23 Ordering Phys: Lilian Montez MD Technologist: CIARA Exam Location: [facility] – [place] Indication: EF BP: 123 / 67 HR: 74 Rhythm: Sinus Technical Quality: Adequate MEASUREMENTS (Male / Female) Normal Values 2D ECHO LV Diastolic Diameter PLAX 4.4 cm 4.2 - 5.9 / 3.9 - 5.3 cm LV Systolic Diameter PLAX 3.0 cm IVS Diastolic Thickness 1.4 cm 0.6 - 1.0 / 0.6 - 0.9 cm IVS Systolic Thickness 1.5 cm LVPW Diastolic Thickness 1.1 cm 0.6 - 1.0 / 0.6 - 0.9 cm LVPW Systolic Thickness 1.4 cm LVOT Diameter 2.0 cm LV Ejection Fraction 2D Teich 60.3 % LV Ejection Fraction MOD 2C 53.8 % LV Ejection Fraction 2C AL 55.7 % LA Diameter 2.4 cm LA Width 3.7 cm LA Height 4.0 cm RA Width 3.7 cm RA Height 4.0 cm Aorta at Sinotubular Diameter 2.2 cm FINDINGS Left Ventricle Normal left ventricular cavity size. Normal left ventricular wall thickness. Normal left ventricular systolic function. Left ventricular ejection fraction is estimated at 60 %. No regional wall motion abnormalities. Right Ventricle Normal right ventricular size and systolic function. Right Atrium Normal right atrial size. Left Atrium Normal left atrial size. Mitral Valve Structurally normal mitral valve. Aortic Valve Structurally normal trileaflet aortic valve. Tricuspid Valve Structurally normal tricuspid valve. Pulmonic Valve Structurally normal pulmonic valve. Pericardium No pericardial effusion. Aorta Normal size aortic root and proximal ascending aorta. CONCLUSIONS 1. This is a limited 2 D echocardiogram only. 2. Normal left ventricular cavity size. Normal left ventricular wall thickness. Normal left ventricular systolic function. Left ventricular ejection fraction is estimated at 60 %. No regional wall motion abnormalities. 3. No gross regional wall motion abnormality. 4. No pericardial effusion. 5. No significant change when compared to previous echocardiogram dated 03/06/2021. Kylee Marcelo MD (Electronically Signed) Final Date: 13 May 2021 12:45 S
[2021-05-08 07:24] LABS: Basophils % 0.3 %; Hematocrit 42.4 % (42.0-52.0); Hemoglobin 12.5 g/dL (11.7-16.6); Lymphocytes # 0.7 10^3/uL (0.8-4.8); Lymphocytes % 4.9 %; Mean Corpuscular HGB Conc 29.5 g/dL (30.0-36.0); Mean Corpuscular Hemoglobin 24.5 pg (28.0-34.0); Mean Corpuscular Volume 83.1 fl (80-94); Mean Platelet Volume 9.6 fL (7.4-10.4); Monocytes # 0.2 10^3/uL (0.2-0.9); Monocytes % 1.5 %; Neutrophils # 12.67 10^3/uL (1.8-7.7); Neutrophils % 91.9 %; Nucleated Red Blood Cells % 0 %; Platelet Count 296 10^3/cmm (130-400); Red Cell Distribution Width 17.9 % (12.1-15.1); White Blood Count 13.8 10^3/uL (4.0-10.0)
[2021-05-08 07:31] LABS: Alanine Aminotransferase 9 U/L (0-41); Albumin Level 3.1 g/dL (3.5-5.2); Alkaline Phosphatase 103 IU/L (40-130); Anion Gap 12.5 (5-19); Aspartate Amino Transferase 8 U/L (0-40); Blood Urea Nitrogen 27 mg/dL (8-23); C Reactive Protein 236.4 mg/L (0.0-4.9); Calcium 7.9 mg/dL (8.5-10.5); Carbon Dioxide 28 mmol/L (22-29); Chloride 102 mmol/L (98-107); Creatine Phosphokinase 33 U/L (39-308); Ferritin 162 ng/mL (30-400); Globulin 3.3 g/dL (1.3-4.6); Glomerular Filtration Rate 40.8 mL/min (90-130); Glucose 271 mg/dL (65-115); Lactate Dehydrogenase 113 U/L (135-225); Osmolality Calculated 297 mOsm/kg (285-295); Phosphorus 2.1 mg/dL (2.5-4.5); Sodium 136 mmol/L (136-145); Total Bilirubin 0.2 mg/dL (0.15-1.2); Total Protein 6.4 g/dL (6.6-8.7)
[2021-05-08 07:36] LABS: Procalcitonin 0.58 ng/mL (0-0.5)
[2021-05-08 07:38] LABS: Potassium 6.5 mmol/L (3.5-5.1)
[2021-05-08 08:19] LABS: Troponin T (5th) Once 45 ng/L (0-15)
[2021-05-08] MEDS: enoxaparin 40 mg/0.4 mL Syringe SUBCUT (08:37)
[2021-05-08] MEDS: cetirizine 10 mg Tablet 5 MG PO (08:37)
[2021-05-08] MEDS: piperacillin-tazobactam 3.375 GM in sodium chloride 0.9% (plus) 50 ML IV ×2 (08:37→15:54)
[2021-05-08] MEDS: aspirin 81 mg EC Tablet PO (08:38)
[2021-05-08] MEDS: BuSPIRONE 10 mg Tablet PO ×3 (08:38→21:50)
[2021-05-08] MEDS: ferrous sulfate EC 325 mg Tablet PO ×2 (08:38→17:04)
[2021-05-08] MEDS: atorvastatin 40 mg Tablet PO (08:38)
[2021-05-08] MEDS: pantoprazole DR 40 mg Tablet PO (08:38)
[2021-05-08] MEDS: gabapentin 100 mg Capsule PO (08:38)
[2021-05-08] MEDS: docusate sodium 100 mg Capsule PO ×2 (08:38→17:03)
[2021-05-08] MEDS: guaiFENesin 600 mg Tablet 1200 MG PO ×2 (08:38→17:03)
[2021-05-08] MEDS: citalopram 20 mg Tablet 10 MG PO (08:38)
[2021-05-08] MEDS: tamsulosin 0.4 mg Capsule PO (08:38)
[2021-05-08] MEDS: venlafaxine ER (24HR) 75 mg Capsule PO (08:38)
--- NOTE | 2021-05-08 08:41 | ECG_ITS ---
[facility] Test Date: 2021-05-08 Pat Name: Marlo Gleason Department: Room: 252 Gender: Male Fiber Technologist: : 1955 Requested By: David Lowery Order Number: [id number] Reading MD: Tino Martell M.D. Measurements Intervals [place] Rate: 74 P: 59 [place]: 244 QRS: 91 QRSD: 100 T: 61 QT: 352 QTc: 391 Interpretive Statements SINUS RHYTHM WITH FIRST DEGREE AV BLOCK WITH FREQUENT SUPRAVENTRICULAR PREMATURE COMPLEXES BORDERLINE RIGHT AXIS DEVIATION [QRS AXIS > 90] Compared to ECG 05/07/2021 21:49:54 No significant changes Electronically Signed On 05-08-2021 19:31:45 CDT by Tino Martell M.D. [id number]
[2021-05-08] MEDS: metoprolol tartrate 25 mg Tablet PO ×2 (08:51→21:50)
[2021-05-08] MEDS: insulin glargine 100 units/1 mL 20 UNIT SUBCUT (08:51)
[2021-05-08 08:52] LABS: Glucose Point of Care 252 mg/dL (70-110)
[2021-05-08] MEDS: albuterol 8 gm MDI 2 PUFF INHALATION ×2 (10:33→15:03)
[2021-05-08 11:24] LABS: Glucose Point of Care 224 mg/dL (70-110)
--- NOTE | 2021-05-08 11:28 | P.PN_ITS ---
Subjective Subjective: Interval history: He is feeling slightly better. He is producing phlegm. Not coughing too much. Denies chest pain or pressure. No headache, no nausea vomiting or diarrhea. No muscle aches or chills. Reports underlying COPD. Vitals/I&O/Wt Last Vital Signs Temp 98.0 F 05/08/21 08:00 Pulse 71 05/08/21 10:37 Resp 20 H 05/08/21 10:31 BP 112/68 05/08/21 08:00 Pulse Ox 92 05/08/21 10:31 05/07/21 05/08/21 05/08/21 22:59 06:59 14:59 Intake Total 300 / 300 Output Total 350 / 350 350 / 350 Balance -50 / -50 -350 / -350 Weight last 48 hrs Weight 90.718 kg Weight 90.718 kg Physical Exam Const: COMMON NORMALS: no acute distress and patient oriented x3 HENMT: COMMON NORMALS: oropharynx normal Neck/C-Spine: COMMON NORMALS: no JVD Resp: COMMON NORMALS: normal respiratory effort AUSCULTATION: rhonchi, wheezes and diminished lung sounds Cardio: COMMON NORMALS: no JVD, regular rhythm, S1 normal heart sound present, S2 normal heart sound present and No murmurs present (Cardio) RHYTHM: regular rhythm HEART SOUNDS: S1 normal heart sound present and S2 normal heart sound present GI: COMMON NORMALS: Normal to inspection, nondistended, normoactive bowel soun ds present, Soft to palpation and non-tender PALPATION: Yes Soft to palpation Extremity: COMMON NORMALS: no joint enlargement and no pedal edema Neuro: COMMON NORMALS: patient oriented x3 and moves all extremities Skin: COMMON NORMALS: no rashes or lesions noted GENERAL SKIN EXAM: no rashes or lesions noted Data : 05/08/21 06:54 05/08/21 06:54 Micro: Microbiology 05/07/21 23:58 Blood Culture - Preliminary Blood SPECIMEN COLLECTED 05/07/21 23:55 Blood Culture - Preliminary Blood SPECIMEN COLLECTED A&P Assessment and plan (1) Hyperkalemia: Last night normal potassium. This morning noted hyperkalemia 6.5. Acute change. Renal function unchanged. No potassium supplementation no potassium in received upstairs or in ER. EKG requested stat, unchanged. Does have first- degree block. I am not sure that the hyperkalemia is real as there have been difficulties with some of the lab equipment reported this morning. Stat potassium level rechecked requested. Discussed with him. Status: Acute (2) Pneumonia: Continue Zosyn, azithromycin. Follow-up COVID-19 PCR. Follow-up sputum culture. Bacterial antigens. Status: Acute Qualifiers: Pneumonia type: due to unspecified organism Laterality: bilateral Lung location: unspecified part of lung Qualified Code(s): J18.9 - Pneumonia, unspecified organism (3) COPD (chronic obstructive pulmonary disease): Acute COPD exacerbation. Continue Decadron. Antibiotics as above. Albuterol, Spiriva. Oxygen support. Wean as tolerating. At home usually on 2 L [id number]. Flutter valve. Status: Chronic Qualifiers: COPD type: emphysema Emphysema type: centrilobular Qualified Code(s): J43.2 - Centrilobular emphysema (4) On home oxygen therapy: Chronically on 2 L, currently requiring 4 Status: Chronic (5) Diabetes mellitus: Status: Chronic Qualifiers: Diabetes mellitus type: type 2 Diabetes mellitus terminal operations manager insulin use: with detention use Diabetes mellitus complication status: with kidney complications Diabetes mellitus complication detail: with chronic kidney disease Chronic kidney disease stage: stage 3 (moderate) Chronic kidney disease stage 3 subtype: stage 3b (GFR 30-44) Qualified Code(s): E11.22 - Type 2 diabetes mellitus with diabetic chronic kidney disease; N18.32 - Chronic kidney disease, stage 3b; Z79.4 - truck terminal manager (current) use of insulin (6) CAD (coronary artery disease): Status: Chronic Qualifiers: Coronary Disease-Associated Artery/Lesion type: [place] artery [place] vs. transplanted heart: [place] heart Associated angina: without angina Qualified Code(s): I25.10 - Atherosclerotic heart disease of [place] coronary artery without angina pectoris (7) Tobacco use: Status: Chronic Attestations Medical Necessity Statement*: Continue admission for pneumonia, COPD exacerbation, with worse hypoxia, with underlying chronic need for oxygen, PCR testing for COVID-19. Coding Level of Care Code Acute Coater Operator Insulation Board for [facility] Diagnoses Hyperkalemia E87.5 Pneumonia J18.9 Pneumonia type: due to unspecified organism Laterality: bilateral Lung location: unspecified part of lung COPD (chronic obstructive pulmonary disease) J43.2 COPD type: emphysema Emphysema type: centrilobular On home oxygen therapy Z99.81 Diabetes mellitus E11.22; N18.32; Z79.4 Diabetes mellitus type: type 2 Diabetes mellitus detention insulin use: with terminal operations manager use Diabetes mellitus complication status: with kidney complications Diabetes mellitus complication detail: with chronic kidney disease Chronic kidney disease stage: stage 3 (moderate) Chronic kidney disease stage 3 subtype: stage 3b (GFR 30-44) CAD (coronary artery disease) I25.10 Coronary Disease-Associated Artery/Lesion type: [place] artery [place] vs. transplanted heart: [place] heart Associated angina: without angina Tobacco use Z72.0
[2021-05-08 11:57] LABS: Potassium 6.1 mmol/L (3.5-5.1)
[2021-05-08 14:55] LABS: Coronavirus Test Green County Not Detected
--- NOTE | 2021-05-08 16:06 | PC.RESP ---
SMOKING CESSATION AND PULMONARY REHAB INFORMATION SENT TO PATIENT.
[2021-05-08 17:25] LABS: Glucose Point of Care 253 mg/dL (70-110)
--- NOTE | 2021-05-08 18:09 | PC.NURSE ---
Shift Note Patient slept on and off during this shift. No increase need for oxygen during the shift. Patient tolerated care well. Frequent safety and comfort rounds continue. Orders and/or nursing care completed as indicated. Patient monitored for response to intervention and treatment(s). Education provided includes reportable s/s, safety, and calling for assistance. Patient and/or mortician supplies sales representative states verbal understanding. Will continue to monitor.
[2021-05-08 20:58] LABS: Glucose Point of Care 82 mg/dL (70-110)
[2021-05-08 20:58] LABS: Glucose Point of Care 207 mg/dL (70-110)
[2021-05-08 20:58] LABS: Glucose Point of Care 261 mg/dL (70-110)
[2021-05-08 20:58] LABS: Glucose Point of Care 294 mg/dL (70-110)
[2021-05-08] MEDS: dexamethasone 4 mg/mL INJ 6 MG IVP (21:49)
[2021-05-08] MEDS: mirtazapine 30 mg Tablet PO (21:50)
[2021-05-09] VITALS (8 sets, daily range): BP systolic 95–121; BP diastolic 51–69; PULSE 60–71; RESP 17–20; TEMP 36.4–36.8; O2SAT 84–97
[2021-05-09] MEDS: piperacillin-tazobactam 3.375 GM in sodium chloride 0.9% (plus) 50 ML IV ×3 (00:52→17:36)
[2021-05-09] MEDS: azithromycin 500 MG in sodium chloride 0.9% 250 ML 250 MG IV (04:41)
[2021-05-09] MEDS: insulin glargine 100 units/1 mL 20 UNIT SUBCUT (05:55)
[2021-05-09 06:00] LABS: Glucose Point of Care 284 mg/dL (70-110)
[2021-05-09 06:44] LABS: Glucose Point of Care 302 mg/dL (70-110)
[2021-05-09 08:14] LABS: Glucose Point of Care 266 mg/dL (70-110)
[2021-05-09] MEDS: cetirizine 10 mg Tablet 5 MG PO (08:50)
[2021-05-09] MEDS: aspirin 81 mg EC Tablet PO (08:50)
[2021-05-09] MEDS: BuSPIRONE 10 mg Tablet PO ×3 (08:50→20:42)
[2021-05-09] MEDS: pantoprazole DR 40 mg Tablet PO (08:50)
[2021-05-09] MEDS: atorvastatin 40 mg Tablet PO (08:50)
[2021-05-09] MEDS: citalopram 20 mg Tablet 10 MG PO (08:50)
[2021-05-09] MEDS: venlafaxine ER (24HR) 75 mg Capsule PO (08:50)
[2021-05-09] MEDS: ferrous sulfate EC 325 mg Tablet PO ×2 (08:52→17:37)
[2021-05-09] MEDS: tamsulosin 0.4 mg Capsule PO (08:52)
[2021-05-09] MEDS: gabapentin 100 mg Capsule PO (08:52)
[2021-05-09] MEDS: guaiFENesin 600 mg Tablet 1200 MG PO ×2 (08:52→17:37)
[2021-05-09] MEDS: docusate sodium 100 mg Capsule PO ×2 (08:52→17:37)
[2021-05-09] MEDS: enoxaparin 40 mg/0.4 mL Syringe SUBCUT (08:55)
[2021-05-09] MEDS: albuterol 8 gm MDI 2 PUFF INHALATION ×2 (09:25→22:29)
[2021-05-09 09:51] LABS: Basophils % 0.1 %; Hematocrit 37.7 % (42.0-52.0); Hemoglobin 11.2 g/dL (11.7-16.6); Lymphocytes # 1.1 10^3/uL (0.8-4.8); Lymphocytes % 6.3 %; Mean Corpuscular HGB Conc 29.7 g/dL (30.0-36.0); Mean Corpuscular Hemoglobin 24.5 pg (28.0-34.0); Mean Corpuscular Volume 82.3 fl (80-94); Mean Platelet Volume 9.9 fL (7.4-10.4); Monocytes # 0.6 10^3/uL (0.2-0.9); Monocytes % 3.3 %; Neutrophils # 15.57 10^3/uL (1.8-7.7); Neutrophils % 89.4 %; Nucleated Red Blood Cells % 0 %; Platelet Count 329 10^3/cmm (130-400); Red Blood Count 4.58 10^6/uL (4.1-5.3); Red Cell Distribution Width 17.7 % (12.1-15.1); White Blood Count 17.4 10^3/uL (4.0-10.0)
[2021-05-09 10:56] LABS: Alanine Aminotransferase 11 U/L (0-41); Albumin Level 2.9 g/dL (3.5-5.2); Alkaline Phosphatase 109 IU/L (40-130); Anion Gap 14.9 (5-19); Aspartate Amino Transferase 10 U/L (0-40); Blood Urea Nitrogen 43 mg/dL (8-23); Calcium 8.3 mg/dL (8.5-10.5); Carbon Dioxide 26 mmol/L (22-29); Chloride 100 mmol/L (98-107); Creatinine Clr Calc Pharmacy 42.9596; Glomerular Filtration Rate 35.9 mL/min (90-130); Glucose 263 mg/dL (65-115); Magnesium 1.9 mg/dL (1.7-2.3); Osmolality Calculated 300 mOsm/kg (285-295); Phosphorus 3.7 mg/dL (2.5-4.5); Potassium 5.9 mmol/L (3.5-5.1); Sodium 135 mmol/L (136-145); Total Bilirubin 0.2 mg/dL (0.15-1.2); Total Protein 6.9 g/dL (6.6-8.7)
[2021-05-09 11:31] LABS: Glucose Point of Care 230 mg/dL (70-110)
[2021-05-09 17:55] LABS: Glucose Point of Care 199 mg/dL (70-110)
[2021-05-09 20:38] LABS: Glucose Point of Care 258 mg/dL (70-110)
[2021-05-09] MEDS: metoprolol tartrate 25 mg Tablet PO (20:41)
[2021-05-09] MEDS: mirtazapine 30 mg Tablet PO (20:41)
--- NOTE | 2021-05-09 21:08 | PM.PN ---
Subjective Subjective: Interval history: Getting quite dyspneic with exertion, try to walk to the restroom and got very short of breath. Denies chest pain. No orthopnea. Vitals/I&O/Wt Last Vital Signs Temp 98.3 F 05/09/21 20:00 Pulse 60 05/09/21 20:00 Resp 17 05/09/21 20:00 BP 114/69 05/09/21 20:00 Pulse Ox 94 05/09/21 20:00 05/09/21 05/09/21 05/09/21 06:59 14:59 22:59 Intake Total 500 / 1320 670 / 670 720 / 1390 Output Total 550 / 900 Balance -50 / 420 670 / 670 720 / 1390 Weight last 48 hrs Weight 90.718 kg Weight 90.718 kg Physical Exam Const: COMMON NORMALS: no acute distress and patient oriented x3 HENMT: COMMON NORMALS: oropharynx normal Neck/C-Spine: COMMON NORMALS: no JVD Resp: COMMON NORMALS: normal respiratory effort AUSCULTATION: wheezes and diminished lung sounds Cardio: COMMON NORMALS: no JVD, regular rhythm, S1 normal heart sound present, S2 normal heart sound present and No murmurs present (Cardio) RHYTHM: regular rhythm HEART SOUNDS: S1 normal heart sound present and S2 normal heart sound present GI: COMMON NORMALS: Normal to inspection, nondistended, normoactive bowel sounds present, Soft to palpation and non-tender PALPATION: Yes Soft to palpation Extremity: COMMON NORMALS: no joint enlargement and no pedal edema Neuro: COMMON NORMALS: patient oriented x3 and moves all extremities Skin: COMMON NORMALS: no rashes or lesions noted GENERAL SKIN EXAM: no rashes or lesions noted Data : 05/09/21 08:57 05/09/21 08:57 Micro: Microbiology 05/08/21 17:45 Bacterial Antigens - Final Urine,Clean Catch 05/08/21 17:45 Legionella Urinary Antigen - Final Urine,Clean Catch 05/07/21 23:58 Blood Culture - Preliminary Blood NEGATIVE TO DATE 05/07/21 23:55 Blood Culture - Preliminary Blood NEGATIVE TO DATE A&P Assessment and plan (1) Pneumonia: Still quite a bit dyspneic, pneumonia also with concomitant COPD exacerbation. Quite a bit of wheezing. Continue Decadron. Continue Zosyn, azithromycin. Negative COVID-19 PCR. Follow-up sputum culture. Bacterial antigens negative. Status: Acute Qualifiers: Pneumonia type: due to unspecified organism Laterality: bilateral Lung location: unspecified part of lung Qualified Code(s): J18.9 - Pneumonia, unspecified organism (2) COPD (chronic obstructive pulmonary disease): Acute COPD exacerbation. Continue Decadron. Antibiotics as above. Albuterol, Spiriva. Oxygen support. Wean as tolerating. At home usually on 2 L [id number]. Flutter valve. Status: Chronic Qualifiers: COPD type: emphysema Emphysema type: centrilobular Qualified Code(s): J43.2 - Centrilobular emphysema (3) Hyperkalemia: Improving. Continue low potassium diet. Status: Acute (4) On home oxygen therapy: Chronically on 2 L, currently requiring 3.5 Status: Chronic (5) Diabetes mellitus: Status: Chronic Qualifiers: Diabetes mellitus type: type 2 Diabetes mellitus manager long term care insulin use: with manager long term care use Diabetes mellitus complication status: with kidney complications Diabetes mellitus complication detail: with chronic kidney disease Chronic kidney disease stage: stage 3 (moderate) Chronic kidney disease stage 3 subtype: stage 3b (GFR 30-44) Qualified Code(s): E11.22 - Type 2 diabetes mellitus with diabetic chronic kidney disease; N18.32 - Chronic kidney disease, stage 3b; Z79.4 - senior living (current) use of insulin (6) CAD (coronary artery disease): Status: Chronic Qualifiers: Coronary Disease-Associated Artery/Lesion type: [place] artery [place] vs. transplanted heart: [place] heart Associated angina: without angina Qualified Code(s): I25.10 - Atherosclerotic heart disease of [place] coronary artery without angina pectoris (7) Tobacco use: Status: Chronic Attestations Medical Necessity Statement*: Continue inpatient treatment for pneumonia with COPD exacerbation with worse hypoxia than usual. Coding Level of Care Code Acute Network Cable Installer for [facility] Fwd Diagnoses Pneumonia J18.9 Pneumonia type: due to unspecified organism Laterality: bilateral Lung location: unspecified part of lung COPD (chronic obstructive pulmonary disease) J43.2 COPD type: emphysema Emphysema type: centrilobular Hyperkalemia E87.5 On home oxygen therapy Z99.81 Diabetes mellitus E11.22; N18.32; Z79.4 Diabetes mellitus type: type 2 Diabetes mellitus manager long term care insulin use: with halfway use Diabetes mellitus complication status: with kidney complications Diabetes mellitus complication detail: with chronic kidney disease Chronic kidney disease stage: stage 3 (moderate) Chronic kidney disease stage 3 subtype: stage 3b (GFR 30-44) CAD (coronary artery disease) I25.10 Coronary Disease-Associated Artery/Lesion type: [place] artery [place] vs. transplanted heart: [place] heart Associated angina: without angina Tobacco use Z72.0
[2021-05-09] MEDS: dexamethasone 4 mg/mL INJ 6 MG IVP (21:54)
[2021-05-10] VITALS (9 sets, daily range): BP systolic 109–137; BP diastolic 69–82; PULSE 62–97; RESP 14–24; TEMP 36.6–36.9; O2SAT 93–96
[2021-05-10] MEDS: piperacillin-tazobactam 3.375 GM in sodium chloride 0.9% (plus) 50 ML IV ×3 (00:08→17:59)
[2021-05-10] MEDS: azithromycin 500 MG in sodium chloride 0.9% 250 ML 250 MG IV (05:46)
[2021-05-10] MEDS: insulin glargine 100 units/1 mL 20 UNIT SUBCUT (05:46)
[2021-05-10 06:40] LABS: Glucose Point of Care 284 mg/dL (70-110)
--- NOTE | 2021-05-10 08:08 | PC.CHAP ---
Pastoral Care Encounter/Spiritual Assessment Type of Contact [] Declined performance test consultant visit [] Patient/Family/Request visit [] Outpatient visit [] Follow-up visit [] Physician referral [] Code/Alert [X] Routine visit [] Staff referral [] Actively dying [X] Patient sleeping [] Family support [] [] Out of room [] Palliative care [] [] Receiving care in room [] Pre-surgical visit [] Trauma [] Long length of stay [] ICU visit [] Other: Relational/Emotional Strength [] Patient feels connected with others/family/visitors/staff [] Distress [] Loneliness/isolation [] Abandonment Spirituality of Patient [] Person of Maida [] Attends Orthodox of their Ma[place] [] Believes in Prayer [] Reads Bible or Congregation materials [] There are Spiritual issues to be addressed Developer [employer] Interventions [] Prayer [] Active listening [] Non-anxious presence [] Spiritual/emotional support [] Crisis/trauma care [] Spiritual counseling [] Bereavement support [] Provided bereavement packet [] Provided Bible/devotional materials [] Provided toy/stuffed animal, coloring book to patient or family member [] Provided Communion [] Anointing/[place] [] Salvation [] Completed spiritual assessment [] Other: Impact on Illness or Injury [] Angry [] Fearful [] Anxious [] Often cries [] Exhaustion [] Unable to work [] Unable to attend latter-day [] Unable to walk/stand [] Unable to read [] Unable to drive [] Unable to eat/drink [] Unable to sleep [] Unable to be with family [] Patient intubated [] Other: Summary Time spent with patient
--- NOTE | 2021-05-10 08:31 | USR_ITS ---
NOTE: Report was unsigned for reason: Order was edited. Original Signature date and time was: 05/10/2021 1017 PROCEDURE INFORMATION: Exam: US Retroperitoneal; Complete; Kidneys and Bladder Exam date and time: 05/10/2021 8:31 AM Age: 66 years old Clinical indication: Abnormal findings; Abnormal lab test; Abnormal kidney function lab tests; Additional info: Darrell TECHNIQUE: Imaging protocol: Real-time ultrasound of the retroperitoneum with image documentation. Complete exam focused on the kidneys and bladder. COMPARISON: CT chest w con* [id number] 10/08/2017 12:04 PM FINDINGS: Right kidney: Lobulated contour. Normal echogenicity. No stones. No hydronephrosis. There is a small cyst measuring 2.4 x 1.5 x 2.1 cm in the mid kidney. Left kidney: Lobulated contour. Normal echogenicity. No stones. No hydronephrosis. Urinary bladder: Underdistended. [facility] US/US renal BI with PV bladder IMPRESSION: Lobulated contour of the kidneys, suggestive of chronic scarring. Otherwise unremarkable ultrasound examination.
[2021-05-10] MEDS: citalopram 20 mg Tablet 10 MG PO (08:43)
[2021-05-10] MEDS: venlafaxine ER (24HR) 75 mg Capsule PO (08:43)
[2021-05-10] MEDS: cetirizine 10 mg Tablet 5 MG PO (08:43)
[2021-05-10] MEDS: aspirin 81 mg EC Tablet PO (08:43)
[2021-05-10] MEDS: gabapentin 100 mg Capsule PO (08:43)
[2021-05-10] MEDS: BuSPIRONE 10 mg Tablet PO ×3 (08:43→20:31)
[2021-05-10] MEDS: guaiFENesin 600 mg Tablet 1200 MG PO ×2 (08:43→17:59)
[2021-05-10] MEDS: metoprolol tartrate 25 mg Tablet PO ×2 (08:43→20:31)
[2021-05-10] MEDS: docusate sodium 100 mg Capsule PO ×2 (08:43→17:59)
[2021-05-10] MEDS: tamsulosin 0.4 mg Capsule PO (08:44)
[2021-05-10] MEDS: enoxaparin 40 mg/0.4 mL Syringe SUBCUT (08:44)
[2021-05-10] MEDS: atorvastatin 40 mg Tablet PO (08:44)
[2021-05-10] MEDS: ferrous sulfate EC 325 mg Tablet PO ×2 (08:44→17:59)
[2021-05-10] MEDS: pantoprazole DR 40 mg Tablet PO (08:44)
[2021-05-10 10:29] LABS: Basophils % 0.3 %; Hemoglobin 11.9 g/dL (11.7-16.6); Lymphocytes # 1.5 10^3/uL (0.8-4.8); Lymphocytes % 10.5 %; Mean Corpuscular Hemoglobin 24.2 pg (28.0-34.0); Mean Corpuscular Volume 83.3 fl (80-94); Mean Platelet Volume 9.4 fL (7.4-10.4); Monocytes # 0.6 10^3/uL (0.2-0.9); Monocytes % 4.2 %; Neutrophils # 11.55 10^3/uL (1.8-7.7); Neutrophils % 83.3 %; Nucleated Red Blood Cells % 0 %; Platelet Count 364 10^3/cmm (130-400); Red Blood Count 4.92 10^6/uL (4.1-5.3); Red Cell Distribution Width 18.2 % (12.1-15.1); White Blood Count 13.9 10^3/uL (4.0-10.0)
[2021-05-10 10:55] LABS: Glucose Point of Care 360 mg/dL (70-110)
--- NOTE | 2021-05-10 11:05 | P.PN_ITS ---
Subjective Subjective: Interval history: He is doing slight bit better, but still got dyspneic walking to and from the bathroom. Coughing slight bit less. Vitals/I&O/Wt Last Vital Signs Temp 97.8 F 05/10/21 07:11 Pulse 63 05/10/21 08:32 Resp 20 H 05/10/21 08:32 BP 119/72 05/10/21 07:11 Pulse Ox 95 05/10/21 08:32 05/09/21 05/10/21 05/10/21 22:59 06:59 14:59 Intake Total 770 / 1440 50 / 1490 1450 / 1450 Output Total 1800 / 1800 Balance 770 / 1440 -1750 / -310 1450 / 1450 Physical Exam Const: COMMON NORMALS: no acute distress and patient oriented x3 HENMT: COMMON NORMALS: oropharynx normal Neck/C-Spine: COMMON NORMALS: no JVD Resp: COMMON NORMALS: normal respiratory effort AUSCULTATION: wheezes and diminished lung sounds Cardio: COMMON NORMALS: no JVD, regular rhythm, S1 normal heart sound present, S2 normal heart sound present and No murmurs present (Cardio) RHYTHM: regular rhythm HEART SOUNDS: S1 normal heart sound present and S2 normal heart sound present GI: COMMON NORMALS: Normal to inspection, nondistended, normoactive bowel sounds present, Soft to palpation and non-tender PALPATION: Yes Soft to palpation Extremity: COMMON NORMALS: no joint enlargement and no pedal edema Neuro: COMMON NORMALS: patient oriented x3 and moves all extremities Skin: COMMON NORMALS: no rashes or lesions noted GENERAL SKIN EXAM: no rashes or lesions noted Data : 05/10/21 09:33 05/09/21 08:57 Micro: Microbiology 05/09/21 21:50 Gram Stain - Final Sputum - Expectorated Sputum 05/08/21 17:45 Bacterial Antigens - Final Urine,Clean Catch 05/08/21 17:45 Legionella Urinary Antigen - Final Urine,Clean Catch A&P Assessment and plan (1) Acute kidney injury superimposed on CKD: Creatinine up to 1.9. Hyperkalemia, potassium 5.9. Today's labs are pending. Requested kidney ultrasound. Check CK. Follow-up potassium. Status: Acute (2) Pneumonia: Showing some slight gradual improvement. Still dyspneic on exertion. At rest oxygen requirement appears to be showing improvement, down to 2 L by nasal cannula. Still diminished air entry. Continue Decadron in addition to Zosyn, azithromycin. Has not been able to provide sputum sample. Covid PCR negative. Bacterial antigens negative. Leukocytosis appears to be with improvement up to 13.9. If continues to improve, and no further issues with renal function, hyperkalemia, hopefully may be able to discharge within a day or so. Status: Acute Qualifiers: Pneumonia type: due to unspecified organism Laterality: bilateral Lung location: unspecified part of lung Qualified Code(s): J18.9 - Pneumonia, unspecified organism (3) COPD (chronic obstructive pulmonary disease): Acute COPD exacerbation. Continue Decadron. Antibiotics as above. Albuterol, Spiriva. Appears to be gradually weaning down on oxygen support. At home usually on 2 L [id number]. Flutter valve. Status: Chronic Qualifiers: COPD type: emphysema Emphysema type: centrilobular Qualified Code(s): J43.2 - Centrilobular emphysema (4) Hyperkalemia: Recheck potassium. Last value 5.9. Today's labs not yet available. Continue low potassium diet. Status: Acute (5) On home oxygen therapy: Chronically on 2 L. Appears to be approaching his baseline, but getting quite dyspneic with exertion. Status: Chronic (6) Diabetes mellitus: Status: Chronic Qualifiers: Diabetes mellitus type: type 2 Diabetes mellitus superintendent terminal insulin use: with nursing home use Diabetes mellitus complication status: with kidney complications Diabetes mellitus complication detail: with chronic kidney disease Chronic kidney disease stage: stage 3 (moderate) Chronic kidney disease stage 3 subtype: stage 3b (GFR 30-44) Qualified Code(s): E11.22 - Type 2 diabetes mellitus with diabetic chronic kidney disease; N18.32 - Chronic kidney disease, stage 3b; Z79.4 - oil heaterman (current) use of insulin (7) CAD (coronary artery disease): Status: Chronic Qualifiers: Coronary Disease-Associated Artery/Lesion type: [place] artery [place] vs. transplanted heart: [place] heart Associated angina: without angina Qual ified Code(s): I25.10 - Atherosclerotic heart disease of [place] coronary artery without angina pectoris (8) Tobacco use: Status: Chronic Additional A&P Information Could not reach his daughter for update by phone. Attestations Medical Necessity Statement*: Continue admission for assessment management of acute kidney injury on chronic kidney disease in the setting of pneumonia, COPD exacerbation. Coding Level of Care Code Acute Endless Track Vehicle Supervisor for g Fwd Diagnoses Acute kidney injury superimposed on CKD N17.9; N18.9 Pneumonia J18.9 Pneumonia type: due to unspecified organism Laterality: bilateral Lung location: unspecified part of lung COPD (chronic obstructive pulmonary disease) J43.2 COPD type: emphysema Emphysema type: centrilobular Hyperkalemia E87.5 On home oxygen therapy Z99.81 Diabetes mellitus E11.22; N18.32; Z79.4 Diabetes mellitus type: type 2 Diabetes mellitus superintendent terminal insulin use: with nursing home use Diabetes mellitus complication status: with kidney complications Diabetes mellitus complication detail: with chronic kidney disease Chronic kidney disease stage: stage 3 (moderate) Chronic kidney disease stage 3 subtype: stage 3b (GFR 30-44) CAD (coronary artery disease) I25.10 Coronary Disease-Associated Artery/Lesion type: [place] artery [place] vs. transplanted heart: [place] heart Associated angina: without angina Tobacco use Z72.0
--- NOTE | 2021-05-10 11:09 | PC.CHAP ---
Pastoral Care Encounter/Spiritual Assessment Type of Contact [] Declined jewel inspector visit [] Patient/Family/Request visit [] Outpatient visit [] Follow-up visit [] Physician referral [] Code/Alert [x] Routine visit [] Staff referral [] Actively dying [] Patient sleeping [] Family support [] [] Out of room [] Palliative care [] [] Receiving care in room [] Pre-surgical visit [] Trauma [] Long length of stay [] ICU visit [] Other: Relational/Emotional Strength [x Patient feels connected with others/family/visitors/staff [] Distress [] Loneliness/isolation [] Abandonment Spirituality of Patient [x] Person of Maida [x] Attends Gnosticist of their [place] [x] Believes in Prayer [] Reads Bible or Sabianist materials [] There are Spiritual issues to be addressed Applied Technologist Interventions [x] Prayer [x] Active listening [x] Non-anxious presence [] Spiritual/emotional support [] Crisis/trauma care [] Spiritual counseling [] Bereavement support [] Provided bereavement packet [] Provided Bible/devotional materials [] Provided toy/stuffed animal, coloring book to patient or family member [] Provided Communion [] Anointing/[place] [] Salvation [x] Completed spiritual assessment [] Other: Impact on Illness or Injury [] Angry [] Fearful [] Anxious [] Often cries [] Exhaustion [] Unable to work [] Unable to attend anabaptism [] Unable to walk/stand [] Unable to read [] Unable to drive [] Unable to eat/drink [] Unable to sleep [] Unable to be with family [] Patient intubated [] Other: Summary Applied Technologist prayed with patient. Time spent with patient 7 minutes.
[2021-05-10 11:21] LABS: Alanine Aminotransferase 13 U/L (0-41); Alkaline Phosphatase 112 IU/L (40-130); Anion Gap 15.8 (5-19); Aspartate Amino Transferase 12 U/L (0-40); Blood Urea Nitrogen 43 mg/dL (8-23); Calcium 8.4 mg/dL (8.5-10.5); Carbon Dioxide 28 mmol/L (22-29); Chloride 101 mmol/L (98-107); Glomerular Filtration Rate 33.8 mL/min (90-130); Glucose 326 mg/dL (65-115); Osmolality Calculated 311 mOsm/kg (285-295); Potassium 5.8 mmol/L (3.5-5.1); Sodium 139 mmol/L (136-145); Total Bilirubin 0.2 mg/dL (0.15-1.2)
[2021-05-10 12:45] LABS: Creatine Phosphokinase 90 U/L (39-308)
--- NOTE | 2021-05-10 12:53 | PC.NUTR ---
Nutrition note: Pt triggered for assessment with MST score of 2, however upon review appears to be in error, as pt stated no to having lost weight unintentionally. Consumed 63% average X 4 recorded meals since admit. Will assess at 5 D LOS or as needed per further consult.
[2021-05-10 16:51] LABS: Glucose Point of Care 233 mg/dL (70-110)
[2021-05-10] MEDS: mirtazapine 30 mg Tablet PO (20:31)
[2021-05-10] MEDS: dexamethasone 4 mg/mL INJ 6 MG IVP (20:43)
[2021-05-10] MEDS: albuterol 8 gm MDI 2 PUFF INHALATION (21:20)
[2021-05-10] MEDS: LORazepam 0.5 mg Tablet PO (21:35)
[2021-05-11] VITALS (13 sets, daily range): BP systolic 111–135; BP diastolic 66–87; PULSE 61–71; RESP 16–24; TEMP 36.4–36.7; O2SAT 90–97
[2021-05-11] MEDS: piperacillin-tazobactam 3.375 GM in sodium chloride 0.9% (plus) 50 ML IV ×3 (00:53→15:24)
[2021-05-11] MEDS: insulin glargine 100 units/1 mL 20 UNIT SUBCUT (05:22)
[2021-05-11] MEDS: azithromycin 500 MG in sodium chloride 0.9% 250 ML 250 MG IV (05:22)
[2021-05-11 05:29] LABS: Glucose Point of Care 211 mg/dL (70-110)
[2021-05-11 05:50] LABS: Basophils # 0.1 10^3/uL (0.0-0.1); Basophils % 0.6 %; Eosinophils % 0.1 %; Hemoglobin 12.4 g/dL (11.7-16.6); Lymphocytes # 1.4 10^3/uL (0.8-4.8); Lymphocytes % 10.3 %; Mean Corpuscular HGB Conc 29.5 g/dL (30.0-36.0); Mean Corpuscular Hemoglobin 24.2 pg (28.0-34.0); Mean Corpuscular Volume 81.9 fl (80-94); Mean Platelet Volume 9.7 fL (7.4-10.4); Monocytes # 0.6 10^3/uL (0.2-0.9); Monocytes % 4.3 %; Neutrophils # 10.91 10^3/uL (1.8-7.7); Neutrophils % 81.3 %; Nucleated Red Blood Cells % 0 %; Platelet Count 365 10^3/cmm (130-400); Red Blood Count 5.13 10^6/uL (4.1-5.3); Red Cell Distribution Width 17.9 % (12.1-15.1); White Blood Count 13.4 10^3/uL (4.0-10.0)
[2021-05-11 06:06] LABS: Alanine Aminotransferase 14 U/L (0-41); Alkaline Phosphatase 92 IU/L (40-130); Anion Gap 12.2 (5-19); Aspartate Amino Transferase 9 U/L (0-40); Blood Urea Nitrogen 41 mg/dL (8-23); Calcium 8.9 mg/dL (8.5-10.5); Carbon Dioxide 31 mmol/L (22-29); Chloride 101 mmol/L (98-107); Globulin 3.7 g/dL (1.3-4.6); Glomerular Filtration Rate 35.9 mL/min (90-130); Glucose 228 mg/dL (65-115); Osmolality Calculated 303 mOsm/kg (285-295); Potassium 6.2 mmol/L (3.5-5.1); Sodium 138 mmol/L (136-145); Total Bilirubin 0.3 mg/dL (0.15-1.2); Total Protein 6.7 g/dL (6.6-8.7)
[2021-05-11 06:07] LABS: Creatinine Clr Calc Pharmacy 42.9596
[2021-05-11] MEDS: albuterol 8 gm MDI 2 PUFF INHALATION (08:06)
[2021-05-11] MEDS: enoxaparin 40 mg/0.4 mL Syringe SUBCUT (08:17)
[2021-05-11] MEDS: citalopram 20 mg Tablet 10 MG PO (08:17)
[2021-05-11] MEDS: tamsulosin 0.4 mg Capsule PO (08:18)
[2021-05-11] MEDS: cetirizine 10 mg Tablet 5 MG PO (08:18)
[2021-05-11] MEDS: metoprolol tartrate 25 mg Tablet PO ×2 (08:18→21:29)
[2021-05-11] MEDS: venlafaxine ER (24HR) 75 mg Capsule PO (08:18)
[2021-05-11] MEDS: docusate sodium 100 mg Capsule PO ×2 (08:18→17:45)
[2021-05-11] MEDS: ferrous sulfate EC 325 mg Tablet PO ×2 (08:18→17:45)
[2021-05-11] MEDS: gabapentin 100 mg Capsule PO (08:18)
[2021-05-11] MEDS: guaiFENesin 600 mg Tablet 1200 MG PO ×2 (08:19→17:45)
[2021-05-11] MEDS: atorvastatin 40 mg Tablet PO (08:20)
[2021-05-11] MEDS: pantoprazole DR 40 mg Tablet PO (08:20)
[2021-05-11] MEDS: BuSPIRONE 10 mg Tablet PO ×3 (08:20→21:29)
[2021-05-11] MEDS: aspirin 81 mg EC Tablet PO (08:20)
[2021-05-11] MEDS: ipratropium-albuterol 3 mL Neb INHALATION ×3 (10:38→20:20)
[2021-05-11] MEDS: budesonide 0.5 mg/2 mL Neb INHALATION ×2 (10:38→20:20)
[2021-05-11 10:45] LABS: Glucose Point of Care 240 mg/dL (70-110)
[2021-05-11 10:45] LABS: Glucose Point of Care 268 mg/dL (70-110)
[2021-05-11] MEDS: insulin regular-human 10 UNIT in SYRINGE 1 EACH IVP (11:03)
[2021-05-11] MEDS: dextrose 50% syringe 50 mL IVP (11:03)
[2021-05-11 11:37] LABS: Glucose Point of Care 225 mg/dL (70-110)
[2021-05-11] MEDS: sodium chloride 0.9% 1,000 ML 50 ML IV (11:46)
--- NOTE | 2021-05-11 12:08 | PC.SOCIAL ---
IMM Update pg 2 of IMM updated and reviewed w/ patient. Copy provided.
[2021-05-11 17:15] LABS: Glucose Point of Care 308 mg/dL (70-110)
[2021-05-11 17:36] LABS: Potassium 5.1 mmol/L (3.5-5.1)
--- NOTE | 2021-05-11 19:28 | PM.PN ---
Subjective Subjective: Interval history: Hospital course, labs appreciated. Examination lying comfortably in bed. He is on 2 L oxygen supplementation which is his baseline. He states his breathing is not at his baseline currently. Usually at home he does not get out of breath on exertion but now he is. Denies any nausea, vomiting, headache, dizziness, decreased urine output, abdominal pain. Vitals/I&O/Wt Last Vital Signs Temp 98.1 F 05/11/21 16:31 Pulse 64 05/11/21 16:31 Resp 16 05/11/21 16:31 BP 120/67 05/11/21 16:31 Pulse Ox 95 05/11/21 16:31 05/11/21 05/11/21 05/11/21 06:59 14:59 22:59 Intake Total 780 / 3050 530.1 / 530.1 Output Total 825 / 1625 450 / 450 Balance -45 / 1425 530.1 / 530.1 -450 / 80.1 Physical Exam Const: COMMON NORMALS: no acute distress and patient oriented x3 HENMT: COMMON NORMALS: oropharynx normal Neck/C-Spine: COMMON NORMALS: no JVD Resp: COMMON NORMALS: normal respiratory effort AUSCULTATION: wheezes and diminished lung sounds Cardio: COMMON NORMALS: no JVD, regular rhythm, S1 normal heart sound present, S2 normal heart sound present and No murmurs present (Cardio) RHYTHM: regular rhythm HEART SOUNDS: S1 normal heart sound present and S2 normal heart sound present GI: COMMON NORMALS: Normal to inspection, nondistended, normoactive bowel sounds present, Soft to palpation and non-tender PALPATION: Yes Soft to palpation Extremity: COMMON NORMALS: no joint enlargement and no pedal edema Neuro: COMMON NORMALS: patient oriented x3 and moves all extremities Skin: COMMON NORMALS: no rashes or lesions noted GENERAL SKIN EXAM: no rashes or lesions noted Data : 05/11/21 04:27 05/11/21 16:16 Micro: Microbiology 05/09/21 21:50 Gram Stain - Final Sputum - Expectorated Sputum Sputum Culture - Preliminary A&P Assessment and plan (1) Acute kidney injury superimposed on CKD: Creatinine up to 1.9. Hyperkalemia Medical reconciliation done for nephrotoxic drugs. Check urine lites, urine creatinine. Start patient on IV fluids with gentle hydration normal saline at 50 cc/h. Monitor for fluid overload. Kidney ultrasound results appreciated. Status: Acute (2) Pneumonia: Showing some slight gradual improvement. Still dyspneic on exertion. At rest oxygen requirement appears to be showing improvement, down to 2 L by nasal cannula. Still diminished air entry. Continue with Zosyn and azithromycin for now. Sputum culture results awaited. Otherwise we will continue antibiotics to finish a 5-day course. We will monitor for leukocytosis, fever for next 24 hours and if remains stable will discontinue antibiotics. Repeat procalcitonin in the morning. COVID-19 PCR negative. Bacterial antigen negative. Status: Acute Qualifiers: Pneumonia type: due to unspecified organism Laterality: bilateral Lung location: unspecified part of lung Qualified Code(s): J18.9 - Pneumonia, unspecified organism (3) COPD (chronic obstructive pulmonary disease): Acute COPD exacerbation. Stop Decadron. Start on prednisone 40 mg for 5 days. Antibiotics as above. Switch inhalation. DuoNebs every 6 hour, budesonide. Oxygen supplementation keeping saturation over 88%. Status: Chronic Qualifiers: COPD type: emphysema Emphysema type: centrilobular Qualified Code(s): J43.2 - Centrilobular emphysema (4) Hyperkalemia: Potassium elevated. Most likely secondary to dexamethasone. Stop dexamethasone as patient does not have Covid. D50 with 10 units insulin. Repeat potassium in evening. Status: Acute (5) On home oxygen therapy: Chronically on 2 L. Appears to be approaching his baseline, but getting quite dyspneic with exertion. Status: Chronic (6) Diabetes mellitus: Status: Chronic Qualifiers: Diabetes mellitus type: type 2 Diabetes mellitus rat exterminator insulin use: with rat exterminator use Diabetes mellitus complication status: with kidney complications Diabetes mellitus complication detail: with chronic kidney disease Chronic kidney disease stage: stage 3 (moderate) Chronic kidney disease stage 3 subtype: stage 3b (GFR 30-44) Qualified Code(s): E11.22 - Type 2 diabetes mellitus with diabetic chronic kidney disease; N18.32 - Chronic kidney disease, stage 3b; Z79.4 - long term acute care registered nurse (current) use of insulin (7) CAD (coronary artery disease): Status: Chronic Qualifiers: Coronary Disease-Associated Artery/Lesion type: [place] artery [place] vs. transplanted heart: [place] heart Associated angina: without angina Qualified Code(s): I25.10 - Atherosclerotic heart disease of [place] coronary artery without angina pectoris (8) Tobacco use: Status: Chronic Additional A&P Information Could not reach his daughter for update by phone. Full code. Lovenox for DVT prophylaxis. Protonix for PUD prophylaxis. Attestations Medical Necessity Statement*: Needs further hospitalization for management of development of PRIYA, hyperkalemia, pneumonia leading to COPD exacerbation. Time Spent in Patient Care: Greater than 35 minutes (>than 50% of time spent in counselling and/or direct pt care on unit). Coding Level of Care Code Acute Bindery Assistant for [facility] Fwd Diagnoses Acute kidney injury superimposed on CKD N17.9; N18.9 Pneumonia J18.9 Pneumonia type: due to unspecified organism Laterality: bilateral Lung location: unspecified part of lung COPD (chronic obstructive pulmonary disease) J43.2 COPD type: emphysema Emphysema type: centrilobular Hyperkalemia E87.5 On home oxygen therapy Z99.81 Diabetes mellitus E11.22; N18.32; Z79.4 Diabetes mellitus type: type 2 Diabetes mellitus senior care insulin use: with rat exterminator use Diabetes mellitus complication status: with kidney complications Diabetes mellitus complication detail: with chronic kidney disease Chronic kidney disease stage: stage 3 (moderate) Chronic kidney disease stage 3 subtype: stage 3b (GFR 30-44) CAD (coronary artery disease) I25.10 Coronary Disease-Associated Artery/Lesion type: [place] artery [place] vs. transplanted heart: [place] heart Associated angina: without angina Tobacco use Z72.0
[2021-05-11 20:09] LABS: Glucose Point of Care 213 mg/dL (70-110)
[2021-05-11] MEDS: mirtazapine 30 mg Tablet PO (21:29)
[2021-05-12] VITALS (14 sets, daily range): BP systolic 92–168; BP diastolic 55–78; PULSE 65–85; RESP 16–18; TEMP 36.5–37; O2SAT 90–98
[2021-05-12] MEDS: piperacillin-tazobactam 3.375 GM in sodium chloride 0.9% (plus) 50 ML IV ×4 (00:01→23:30)
[2021-05-12] MEDS: LORazepam 0.5 mg Tablet PO (00:02)
[2021-05-12] MEDS: HYDROcodone-acetaminophen 5-325 mg Tablet 1 TAB PO ×2 (01:12→20:58)
[2021-05-12] MEDS: azithromycin 500 MG in sodium chloride 0.9% 250 ML 250 MG IV (04:22)
[2021-05-12] MEDS: sodium chloride 0.9% 1,000 ML 50 ML IV (04:22)
[2021-05-12] MEDS: insulin glargine 100 units/1 mL 20 UNIT SUBCUT (05:51)
[2021-05-12 06:42] LABS: Glucose Point of Care 203 mg/dL (70-110)
[2021-05-12 06:55] LABS: Basophils # 0.1 10^3/uL (0.0-0.1); Basophils % 0.7 %; Eosinophils # 0.6 10^3/uL (0.0-0.8); Eosinophils % 4.3 %; Hematocrit 41.3 % (42.0-52.0); Hemoglobin 12.6 g/dL (11.7-16.6); Lymphocytes # 3.4 10^3/uL (0.8-4.8); Lymphocytes % 24.9 %; Mean Corpuscular HGB Conc 30.5 g/dL (30.0-36.0); Mean Corpuscular Hemoglobin 24.9 pg (28.0-34.0); Mean Corpuscular Volume 81.6 fl (80-94); Mean Platelet Volume 9.8 fL (7.4-10.4); Monocytes # 1.6 10^3/uL (0.2-0.9); Monocytes % 11.9 %; Neutrophils # 7.29 10^3/uL (1.8-7.7); Neutrophils % 53.7 %; Nucleated Red Blood Cells % 0 %; Platelet Count 357 10^3/cmm (130-400); Red Blood Count 5.06 10^6/uL (4.1-5.3); Red Cell Distribution Width 17.9 % (12.1-15.1); White Blood Count 13.6 10^3/uL (4.0-10.0)
[2021-05-12 07:16] LABS: Alanine Aminotransferase 18 U/L (0-41); Albumin Level 3.1 g/dL (3.5-5.2); Alkaline Phosphatase 87 IU/L (40-130); Anion Gap 11.4 (5-19); Aspartate Amino Transferase 12 U/L (0-40); Blood Urea Nitrogen 37 mg/dL (8-23); Calcium 8.8 mg/dL (8.5-10.5); Carbon Dioxide 34 mmol/L (22-29); Chloride 100 mmol/L (98-107); Globulin 2.6 g/dL (1.3-4.6); Glomerular Filtration Rate 38.2 mL/min (90-130); Glucose 207 mg/dL (65-115); Osmolality Calculated 305 mOsm/kg (285-295); Potassium 5.4 mmol/L (3.5-5.1); Sodium 140 mmol/L (136-145); Total Bilirubin 0.2 mg/dL (0.15-1.2); Total Protein 5.7 g/dL (6.6-8.7)
[2021-05-12 07:25] LABS: Procalcitonin 0.24 ng/mL (0-0.5)
[2021-05-12] MEDS: ipratropium-albuterol 3 mL Neb INHALATION ×3 (08:15→20:40)
[2021-05-12] MEDS: budesonide 0.5 mg/2 mL Neb INHALATION ×2 (08:16→20:40)
[2021-05-12] MEDS: guaiFENesin 600 mg Tablet 1200 MG PO ×2 (08:58→18:09)
[2021-05-12] MEDS: enoxaparin 40 mg/0.4 mL Syringe SUBCUT (08:58)
[2021-05-12] MEDS: venlafaxine ER (24HR) 75 mg Capsule PO (08:59)
[2021-05-12] MEDS: atorvastatin 40 mg Tablet PO (08:59)
[2021-05-12] MEDS: pantoprazole DR 40 mg Tablet PO (08:59)
[2021-05-12] MEDS: BuSPIRONE 10 mg Tablet PO ×3 (09:00→20:58)
[2021-05-12] MEDS: metoprolol tartrate 25 mg Tablet PO ×2 (09:00→20:58)
[2021-05-12] MEDS: cetirizine 10 mg Tablet 5 MG PO (09:00)
[2021-05-12] MEDS: gabapentin 100 mg Capsule PO (09:00)
[2021-05-12] MEDS: docusate sodium 100 mg Capsule PO ×2 (09:00→18:09)
[2021-05-12] MEDS: citalopram 20 mg Tablet 10 MG PO (09:00)
[2021-05-12] MEDS: aspirin 81 mg EC Tablet PO (09:00)
[2021-05-12] MEDS: ferrous sulfate EC 325 mg Tablet PO ×2 (09:01→18:09)
[2021-05-12] MEDS: tamsulosin 0.4 mg Capsule PO (09:01)
[2021-05-12] MEDS: insulin regular-human 10 UNIT in SYRINGE 1 EACH IVP (10:04)
[2021-05-12] MEDS: dextrose 50% syringe 50 mL IVP (10:04)
[2021-05-12 11:52] LABS: Glucose Point of Care 129 mg/dL (70-110)
--- NOTE | 2021-05-12 16:33 | P.PN_ITS ---
Subjective Subjective: Interval history: No acute event overnight. Patient denies any nausea vomiting, headache, palpitations. States his breathing is stable. He is currently on 2 L saturating 92%. States he did not had a restful night as was getting up again and again because of disturbance and being in the hospital. Vitals/I&O/Wt Last Vital Signs Temp 97.8 F 05/12/21 11:36 Pulse 65 05/12/21 14:18 Resp 18 05/12/21 14:18 BP 92/55 05/12/21 11:36 Pulse Ox 91 05/12/21 14:18 05/12/21 05/12/21 05/12/21 06:59 14:59 22:59 Intake Total 830 / 1890.1 590.1 / 590.1 1200 / 1790.1 Output Total 600 / 1850 1800 / 1800 Balance 230 / 40.1 590.1 / 590.1 -600 / -9.9 Physical Exam Const: COMMON NORMALS: no acute distress and patient oriented x3 HENMT: COMMON NORMALS: oropharynx normal Neck/C-Spine: COMMON NORMALS: no JVD Resp: COMMON NORMALS: normal respiratory effort AUSCULTATION: wheezes and diminished lung sounds Cardio: COMMON NORMALS: no JVD, regular rhythm, S1 normal heart sound present, S2 normal heart sound present and No murmurs present (Cardio) RHYTHM: regular rhythm HEART SOUNDS: S1 normal heart sound present and S2 normal heart sound present GI: COMMON NORMALS: Normal to inspection, nondistended, normoactive bowel sounds present, Soft to palpation and non-tender PALPATION: Yes Soft to palpation Extremity: COMMON NORMALS: no joint enlargement and no pedal edema Neuro: COMMON NORMALS: patient oriented x3 and moves all extremities Skin: COMMON NORMALS: no rashes or lesions noted GENERAL SKIN EXAM: no rashes or lesions noted Data : 05/12/21 04:58 05/12/21 04:58 Micro: Microbiology 05/09/21 21:50 Gram Stain - Final Sputum - Expectorated Sputum Sputum Culture - Preliminary A&P Assessment and plan (1) Acute kidney injury superimposed on CKD: Baseline creatinine seems to be creatinisince last 2 years with some values at 1.8 and 1.9 as well. Creatinine trending down to 1.8 today. BUN also improving. Potassium had improved yesterday today again 5.4. Medical reconciliation done for nephrotoxic drugs. Check urine lites, urine creatinine. Continue with normal saline at 50 cc/h gentle hydration. Monitor for fluid overload. Kidney ultrasound results appreciated. Status: Acute (2) Pneumonia: Showing some slight gradual improvement. Back to baseline 2 L oxygen supplementation. Laying comfortably flat in bed. Afebrile. White count stable at 13.6. Procalcitonin has trended down and is normal now. Sputum culture so far preliminary negative, urine Legionella, bacterial antigen negative. Stop azithromycin. Continue Zosyn to finish a 5-day course. COVID-19 PCR negative. Status: Acute Qualifiers: Pneumonia type: due to unspecified organism Laterality: bilateral Lung location: unspecified part of lung Qualified Code(s): J18.9 - Pneumonia, unspecified organism (3) COPD (chronic obstructive pulmonary disease): Acute COPD exacerbation seems to have resolved.. Stop Decadron. Start on prednisone 40 mg for 5 days. Antibiotics as above. Continue with DuoNebs every 6 hour, budesonide. Oxygen supplementation keeping saturation over 88%. Status: Chronic Qualifiers: COPD type: emphysema Emphysema type: centrilobular Qualified Code(s): J43.2 - Centrilobular emphysema (4) Hyperkalemia: Potassium elevated. Most likely secondary to dexamethasone. Stop dexamethasone as patient does not have Covid. D50 with 10 units insulin. Repeat potassium in evening. Status: Acute (5) On home oxygen therapy: Chronically on 2 L. Appears to be approaching his baseline, but getting quite dyspneic with exertion. 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 transplanted heart: [place] heart Associated angina: without angina Q ualified Code(s): I25.10 - Atherosclerotic heart disease of [place] coronary artery without angina pectoris (8) Tobacco use: Status: Chronic Additional A&P Information Could not reach his daughter for update by phone. Full code. Lovenox for DVT prophylaxis. Protonix for PUD prophylaxis. Discharge planning: If patient continues to remain at baseline oxygen supplementation with improving renal functions tomorrow we will plan to discharge back to SNF. Will require rapid COVID-19 antigen prior to discharge. Attestations Medical Necessity Statement*: Requires further hospitalization for management of PRIYA, hyperkalemia pneumonia leading to mild COPD exacerbation. Time Spent in Patient Care: Greater than 35 minutes (>than 50% of time spent in counselling and/or direct pt care on unit) . 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 transplanted heart: [place] heart Associated angina: without angina Tobacco use Z72.0
[2021-05-12] MEDS: predniSONE 20 mg Tablet 40 MG PO (17:02)
[2021-05-12 17:37] LABS: Glucose Point of Care 175 mg/dL (70-110)
[2021-05-12 18:13] LABS: Potassium 4.8 mmol/L (3.5-5.1)
[2021-05-12 19:00] LABS: Potassium, Radom Urine 24 mmol/L; Urine Creatinine 42 mg/dL (39-259); Urine Random Chloride 62 mmol/L; Urine Random Sodium 77 mmol/L
[2021-05-12 20:45] LABS: Glucose Point of Care 277 mg/dL (70-110)
[2021-05-12 20:55] LABS: Eosinophil Urine Eosinophils Seen; Urine Eosinophil Count 2 (0-0)
[2021-05-12] MEDS: mirtazapine 30 mg Tablet PO (20:58)
[2021-05-13] VITALS (13 sets, daily range): BP systolic 93–153; BP diastolic 52–79; PULSE 65–94; RESP 16–65; TEMP 36.3–36.8; O2SAT 90–96
[2021-05-13] MEDS: ipratropium-albuterol 3 mL Neb INHALATION ×4 (03:25→20:10)
[2021-05-13] MEDS: insulin glargine 100 units/1 mL 20 UNIT SUBCUT (05:30)
[2021-05-13 05:44] LABS: Basophils # 0.1 10^3/uL (0.0-0.1); Basophils % 0.4 %; Eosinophils % 0.1 %; Hematocrit 41.4 % (42.0-52.0); Hemoglobin 12.4 g/dL (11.7-16.6); Lymphocytes # 1.3 10^3/uL (0.8-4.8); Lymphocytes % 10.3 %; Mean Corpuscular Hemoglobin 24.4 pg (28.0-34.0); Mean Corpuscular Volume 81.5 fl (80-94); Monocytes # 0.5 10^3/uL (0.2-0.9); Monocytes % 3.6 %; Neutrophils % 80.8 %; Nucleated Red Blood Cells % 0 %; Platelet Count 359 10^3/cmm (130-400); Red Blood Count 5.08 10^6/uL (4.1-5.3); Red Cell Distribution Width 17.6 % (12.1-15.1); White Blood Count 12.4 10^3/uL (4.0-10.0)
[2021-05-13 06:01] LABS: Alanine Aminotransferase 18 U/L (0-41); Alkaline Phosphatase 86 IU/L (40-130); Aspartate Amino Transferase 10 U/L (0-40); Blood Urea Nitrogen 35 mg/dL (8-23); Calcium 8.8 mg/dL (8.5-10.5); Carbon Dioxide 30 mmol/L (22-29); Chloride 98 mmol/L (98-107); Globulin 3.4 g/dL (1.3-4.6); Glomerular Filtration Rate 43.7 mL/min (90-130); Glucose 242 mg/dL (65-115); Osmolality Calculated 296 mOsm/kg (285-295); Sodium 135 mmol/L (136-145); Total Bilirubin 0.2 mg/dL (0.15-1.2); Total Protein 6.4 g/dL (6.6-8.7)
[2021-05-13 06:15] LABS: Anion Gap 13.4 (5-19); Potassium 6.4 mmol/L (3.5-5.1)
[2021-05-13 06:28] LABS: Glucose Point of Care 231 mg/dL (70-110)
[2021-05-13] MEDS: budesonide 0.5 mg/2 mL Neb INHALATION ×2 (08:25→20:10)
[2021-05-13] MEDS: enoxaparin 40 mg/0.4 mL Syringe SUBCUT (08:36)
[2021-05-13] MEDS: pantoprazole DR 40 mg Tablet PO (08:37)
[2021-05-13] MEDS: venlafaxine ER (24HR) 75 mg Capsule PO (08:37)
[2021-05-13] MEDS: docusate sodium 100 mg Capsule PO ×2 (08:37→18:34)
[2021-05-13] MEDS: cetirizine 10 mg Tablet 5 MG PO (08:37)
[2021-05-13] MEDS: predniSONE 20 mg Tablet 40 MG PO (08:37)
[2021-05-13] MEDS: ferrous sulfate EC 325 mg Tablet PO ×2 (08:37→18:35)
[2021-05-13] MEDS: atorvastatin 40 mg Tablet PO (08:37)
[2021-05-13] MEDS: citalopram 20 mg Tablet 10 MG PO (08:38)
[2021-05-13] MEDS: guaiFENesin 600 mg Tablet 1200 MG PO ×2 (08:38→18:35)
[2021-05-13] MEDS: aspirin 81 mg EC Tablet PO (08:38)
[2021-05-13] MEDS: tamsulosin 0.4 mg Capsule PO (08:38)
[2021-05-13] MEDS: gabapentin 100 mg Capsule PO (08:38)
[2021-05-13] MEDS: BuSPIRONE 10 mg Tablet PO ×3 (08:38→20:38)
[2021-05-13] MEDS: piperacillin-tazobactam 3.375 GM in sodium chloride 0.9% (plus) 50 ML IV (08:39)
[2021-05-13] MEDS: metoprolol tartrate 25 mg Tablet PO ×2 (08:53→20:41)
[2021-05-13] MEDS: sodium polystyrene sulfonate 15 gm/60 mL Btl PO ×2 (08:57→22:58)
--- NOTE | 2021-05-13 09:34 | PM.CONSULT ---
Providers/Reason For Consult Consulting Physician/Specialty*: katia alas md / telenephrology Reason for Consult*: PRIYA on CKD stage 3, hyperkalemia Attending Physician: Cali Chacon MD History of Present Illness History of Present Illness Marlo Gleason is a 66 year old male w/ COPd, DM, CKD stage 3. Pt was admitted on 05-08-21 w/ pna- rx w/ rocephin and azithromycin, and steroids. His COVID-19 test was negative. His course has been complicated by hyperkalemia. He was started on a low potassium diet. He was also diagnosed w/ a UTI. hedeveloped PRIYA and then was started on IVF and improved. In 2018- his cr was approx 1.4 mg/dl. On this admission cr ranged from 1.7- 1.9 mg/dl- w/ ivf- cr now 1.6 mg/dl. Renal called as k is now 6.4 mmol/ liter. Pt states that he does not stick to a low k diet. he has long standing DM. Review of Systems General: Reports: 10 or more systems reviewed and unremarkable except in HPI and below Narrative: sob, high sugars, no visual changes. no elias, no cp, no n/v/f/c. + nocturia. Meds/Allergies Home Medications and Allergies Home Medications Medication Instructions Recorded Confirmed Last Taken Type albuterol sulfate 2.5 mg INHALATION Q4H PRN 01/21/21 05/08/21 Unknown History amlodipine 2.5 mg tablet 2.5 mg PO DAILY 01/21/21 05/08/21 Unknown History aspirin 81 mg tablet,delayed 81 mg PO DAILY 01/21/21 05/08/21 Unknown History release atorvastatin 40 mg tablet 40 mg PO DAILY 01/21/21 05/08/21 Unknown History buspirone 10 mg tablet 10 mg PO TID 01/21/21 05/08/21 Unknown History cetirizine 5 mg tablet 5 mg PO DAILY 01/21/21 05/08/21 Unknown History citalopram 10 mg tablet 10 mg PO DAILY 01/21/21 05/08/21 Unknown History ferrous sulfate 325 mg (65 mg 325 mg PO BID 01/21/21 05/08/21 Unknown History iron) tablet gabapentin 100 mg capsule 100 mg PO DAILY 01/21/21 05/08/21 Unknown History guaifenesin 1,200 mg tablet, 1,200 mg PO BID 01/21/21 05/08/21 Unknown History extended release 12 hr hydrocodone 5 mg-acetaminophen 325 1 tab PO Q8H PRN 01/21/21 05/08/21 Unknown History mg tablet insulin glargine 100 unit/mL (3 20 unit SUBCUT QAM ml 01/21/21 05/08/21 Unknown History mL) subcutaneous pen ipratropium 0.5 mg-albuterol 3 mg 3 ml INHALATION QID PRN 01/21/21 05/08/21 Unknown History (2.5 mg base)/3 mL nebulization soln lorazepam 1 mg tablet 1 mg PO BID PRN 01/21/21 05/08/21 Unknown History metoprolol tartrate 25 mg tablet 25 mg PO BID 01/21/21 05/08/21 Unknown History mirtazapine 30 mg tablet 30 mg PO DAILY 01/21/21 05/08/21 Unknown History nitroglycerin 0.4 mg sublingual 0.4 mg SUBLINGUAL Q5M PRN 01/21/21 05/08/21 Unknown History tablet omeprazole 20 mg capsule,delayed 20 mg PO DAILY 01/21/21 05/08/21 Unknown History release tamsulosin 0.4 mg capsule 0.4 mg PO DAILY 01/21/21 05/08/21 Unknown History venlafaxine 75 mg capsule,extended 75 mg PO DAILY 01/21/21 05/08/21 Unknown History release 24 hr acetaminophen [Mapap Arthritis 650 mg PO Q12H 05/08/21 05/08/21 Unknown History Pain] bisacodyl 10 mg OR DAILY PRN 05/08/21 05/08/21 Unknown History xddrhitxomn-ctohxwnzg-udvgkxiy 1 inh INHALATION DAILY 05/08/21 05/08/21 Unknown History [Trelegy Ellipta] nicotine 1 patch TRANSDERMAL DAILY PRN 05/08/21 05/08/21 Unknown History polyethylene glycol 3350 [Miralax] 17 g PO DAILY PRN 05/08/21 05/08/21 Unknown History senna 8.6 mg PO BID PRN 05/08/21 05/08/21 Unknown History sodium phosphates [Enema 118 ml OR PRN 05/08/21 05/08/21 Unknown History Disposable] Allergies Allergy/AdvReac Type Severity Reaction Status Date / Time No Known Allergies Allergy Verified 04/02/21 09:11 Current Medications Current Medications Generic Name Dose Route Start Last Admin Trade Name Mundo PRN Reason Stop Dose Admin Hydrocodone Bitart/Acetaminophen 1 tab 05/08/21 06:05 05/12/21 20:58 Hydrocodone-Acetaminophen 5-325 Mg Tablet PO 1 tab Q8H PRN Administration Moderate Pain (Scale Score 5-6) Albuterol Sulfate 2 puff 05/08/21 05:56 05/11/21 08:06 Albuterol 8 Gm Mdi INHALATION 2 puff Q4H.RESPIRATORY PRN Administration SHORTNESS OF BREATH Albuterol/Ipratropium 3 ml 05/11/21 09:00 05/13/21 08:25 Ipratropium-Albuterol 3 Ml Neb INHALATION 3 ml Q6H.RESPIRATORY DAYSI Administration Aspirin 81 mg 05/08/21 09:00 05/13/21 08:38 Aspirin 81 Mg Ec Tablet PO 81 mg DAILY DAYSI Administration Atorvastatin Calcium 40 mg 05/08/21 09:00 05/13/21 08:37 Atorvastatin 40 Mg Tablet PO 40 mg DAILY DAYSI Administration Budesonide 0.5 mg 05/11/21 09:30 05/13/21 08:25 Budesonide 0.5 Mg/2 Ml Neb INHALATION 0.5 mg BID.RESPIRATORY DAYSI Administration Buspirone HCl 10 mg 05/08/21 09:00 05/13/21 08:38 Buspirone 10 Mg Tablet PO 10 mg TID DAYSI Administration Cetirizine HCl 5 mg 05/08/21 09:00 05/13/21 08:37 Cetirizine 10 Mg Tablet PO 5 mg DAILY DAYSI Administration Citalopram Hydrobromide 10 mg 05/08/21 09:00 05/13/21 08:38 Citalopram 20 Mg Tablet PO 10 mg DAILY DAYSI Administration Docusate Sodium 100 mg 05/08/21 09:00 05/13/21 08:37 Docusate Sodium 100 Mg Capsule PO 100 mg BID DAYSI Administration Enoxaparin Sodium 40 mg 05/08/21 08:00 05/13/21 08:36 Enoxaparin 40 Mg/0.4 Ml Syringe SUBCUT 40 mg Q24H DAYSI Administration Ferrous Sulfate 325 mg 05/08/21 08:00 05/13/21 08:37 Ferrous Sulfate Ec 325 Mg Tablet PO 325 mg BIDWM DAYSI Administration Gabapentin 100 mg 05/08/21 09:00 05/13/21 08:38 Gabapentin 100 Mg Capsule PO 100 mg DAILY DAYSI Administration Guaifenesin 1,200 mg 05/08/21 09:00 05/13/21 08:38 Guaifenesin 600 Mg Tablet PO 1,200 mg BID DAYSI Administration Piperacillin Sod/Tazobactam 50 mls @ 12.5 mls/hr 05/08/21 08:00 05/13/21 08:39 Sod 3.375 gm/ Sodium Chloride IV 12.5 mls/hr Q8H DAYSI Administration Protocol Insulin Aspart 0 unit 05/08/21 21:00 05/12/21 20:59 Insulin Aspart 100 Unit/1 Ml SUBCUT 5 unit BEDTIME DAYSI Administration Protocol Insulin Aspart 0 unit 05/08/21 08:00 05/13/21 08:38 Insulin Aspart 100 Unit/1 Ml SUBCUT 8 unit TIDWM DAYSI Administration Protocol Insulin Glargine 20 unit 05/08/21 07:30 05/13/21 05:30 Insulin Glargine 100 Units/1 Ml SUBCUT 20 unit QAM DAYSI Administration Lorazepam 0.5 mg 05/08/21 06:05 05/12/21 00:02 Lorazepam 0.5 Mg Tablet PO 0.5 mg BID PRN Administration Anxiety Metoprolol Tartrate 25 mg 05/08/21 09:00 05/13/21 08:53 Metoprolol Tartrate 25 Mg Tablet PO 25 mg BID@0900,2100 DAYSI Administration Mirtazapine 30 mg 05/08/21 21:00 05/12/21 20:58 Mirtazapine 30 Mg Tablet PO 30 mg BEDTIME DAYSI Administration Pantoprazole Sodium 40 mg 05/08/21 09:00 05/13/21 08:[address] 40 Mg Tablet PO 40 mg DAILY DAYSI Administration Prednisone 40 mg 05/12/21 16:45 05/13/21 08:37 Prednisone 20 Mg Tablet PO 05/17/21 16:44 40 mg DAILY DAYSI Administration Tamsulosin HCl 0.4 mg 05/08/21 09:00 05/13/21 08:38 Tamsulosin 0.4 Mg Capsule PO 0.4 mg DAILY DAYSI Administration Venlafaxine HCl 75 mg 05/08/21 09:00 05/13/21 08:37 Venlafaxine Er (24hr) 75 Mg Capsule PO 75 mg DAILY DAYSI Administration PFSH Acute PFSH: Medical History Anxiety disorder CAD (coronary artery disease) CKD (chronic kidney disease) COPD (chronic obstructive pulmonary disease) Diabetes mellitus GERD (gastroesophageal reflux disease) Gout Hypertension Prostatic hypertrophy PVD (peripheral vascular disease) Skin cancer Specific type unknown Tobacco use Surgical History (Updated 05/08/21 @ 06:21 by Lilian Montez MD) History of cholecystectomy History of coronary artery stent placement X2 History of skin surgery Left neck for skin cancer Presence of coronary angioplasty implant and graft Family History (Updated 05/08/21 @ 06:33 by Lilian Montez MD) Mother Cancer Father CAD (coronary artery disease) Social History (Updated 05/08/21 @ 06:33 by Lilian Montez MD) Smoking and tobacco status: current every day smoker cigarettes Years cigarettes smoked: 60 Quit status (tobacco): not considering quitting Second hand smoke exposure: Yes Alcohol intake: former Substance/Drug Use: never Caregiver/support person: Yes Lives independently: No Housing: [facility] Marital status: / service: No Current occupational status: disabled Pets and animals: Yes Current gender identity: Male Vitals/I&O/Wt Last Vital Signs Temp 97.7 F 05/13/21 07:57 Pulse 89 05/13/21 08:27 Resp 17 05/13/21 08:27 BP 151/79 05/13/21 07:57 Pulse Ox 95 05/13/21 08:27 05/12/21 05/13/21 05/13/21 22:59 06:59 14:59 Intake Total 1610 / 2200.1 1050 / 3250.1 480 / 480 Output Total 2200 / 2200 1300 / 3500 Balance -590 / 0.1 -250 / -249.9 480 / 480 Physical Exam Narrative: EXAM NARRATIVE: NARD vss heent- nc/at, eomi, anicteric neck- supple lungs occ wheezes b/l heart reg,+LAUREN, no rub abd- soft, nt, nd, +BS ext no edema neuro- a,a, o x 3 pulses weak Data Micro: Micro: Microbiology 05/07/21 23:58 Blood Culture - Fi nal Blood NO GROWTH AFTER 5 DAYS 05/07/21 23:55 Blood Culture - Fi nal Blood NO GROWTH AFTER 5 DAYS 05/09/21 21:50 Gram Stain - Final Sputum - Expector ated Sputum Sputum Culture - P reliminary A&P Additional A&P Information 66 yr old man: 1. CKD stage 3- likely stage 3b. baseline cr 1.4 in 2019- now cr 1.6- 1.9 mg/dl -renal us w/ lobulated, scarred kidneys- c/w CKD 2. PRIYA- Q progression, Q prerenal - Q of renal- pulm disease- as pt has hematuria and leukocytes in urine- only trace protein - Q AIN. eos noted- PPI's can cause AIN/ chronic int nephrritis- however, he is on steroids and cr is improving- would not stop PPI -repeat ua -limit nephrotoxins -d/c ivf -snd serologies 3. hyperkalemia- can come form CKD, steroids, beta-blockers, or acidosis -check abg -add a diuretic- to spill potassium -may need lokelma as an outpt -avoid deborah-i/ aRB for now 4. DM control- as glucose improves, k should improve 5. mild hyponatremia- check tsh and ur lytes -monitor w/ hctz 6. htn- monitor w/ addition of diuretic would hold d/c till k improved on d/c- needs a 2 gm k, 1800 kcal ADA diet seen and examined w/ rN- telehealth visit discussed w/ pt, RN, and Dr. 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
[2021-05-13 11:09] LABS: Creatine Phosphokinase 23 U/L (39-308)
[2021-05-13] MEDS: hydroCHLOROthiazide 25 mg Tablet PO (11:15)
[2021-05-13 11:18] LABS: Glucose Point of Care 212 mg/dL (70-110)
[2021-05-13 13:27] LABS: ABG PCO2 47.6 mmHg (35-45); ABG PH Result 7.39 (7.35-7.45); Alveolar-Arterial Oxygen Gradi 9.5 mmHg (5-10); Arterial Blood Gas Hematocrit 37.1 % (42-52); Base Excess ABG 3.4 mmol/L (-2.0-2.0); Blood Gas Allen Test Pos; Blood Gas Operator Identificat GD; Blood Gas Sample Site Radial, right; Blood Gas Sample Type Arterial; HCO3 ABG 29.1 mmol/L (22-26); HGB O2 Sat 93.8 % (95-100); Ionized Calcium Level - ABG 1.2 mmol/L (1.1-1.4); Methemoglobin 0.6 % (0.4-1.5); Oxygen Device NC; Oxygen Saturation ABG 95.3; PO2 ABG 69.1 mmHg (80.0-100.0); Total Hemoglobin 12.1 g/dL (14-18)
--- NOTE | 2021-05-13 14:13 | PC.RESP ---
RT Shift Note Frequent safety and respiratory rounds continue. Orders completed as indicated. Patient monitored pre and post treatments throughout shift. Patient [Did. ] tolerate treatments appropriately. Condition [.DidNotChange]. Patient and/or player services representative educated on respiratory treatment and medications. Patient and/or player services representative [verbalized understanding. Will continue to monitor patient progress.
[2021-05-13 16:24] LABS: Hepatitis B Surface AB 3.5 (11.5-1000); Hepatitis B Surface Antigen Non-Reactive (Nonreactive); Hepatitis C Virus Antibody Non-Reactive (Nonreactive)
[2021-05-13 16:29] LABS: Anion Gap 20.4 (5-19); Blood Urea Nitrogen 38 mg/dL (8-23); Calcium 9.2 mg/dL (8.5-10.5); Carbon Dioxide 27 mmol/L (22-29); Chloride 99 mmol/L (98-107); Glomerular Filtration Rate 43.7 mL/min (90-130); Glucose 105 mg/dL (65-115); Osmolality Calculated 301 mOsm/kg (285-295); Potassium 5.4 mmol/L (3.5-5.1); Sodium 141 mmol/L (136-145)
--- NOTE | 2021-05-13 17:11 | PC.SOCIAL ---
IMM Update: pg 2 of IMM updated and reviewed w/ patient. Copy provided.
--- NOTE | 2021-05-13 17:32 | P.PN_ITS ---
Subjective Subjective: Interval history: No events overnight. Has remained hemodynamically stable. Denies any nausea vomiting, headache. Remains on 2 L. Vitals/I&O/Wt Last Vital Signs Temp 97.5 F L 05/13/21 16:00 Pulse 72 05/13/21 16:00 Resp 18 05/13/21 16:00 BP 120/70 05/13/21 16:00 Pulse Ox 91 05/13/21 16:00 05/13/21 05/13/21 05/13/21 06:59 14:59 22:59 Intake Total 1050 / 3250.1 1210 / 1210 Output Total 1300 / 3500 200 / 200 Balance -250 / -249.9 1010 / 1010 Physical Exam Const: COMMON NORMALS: no acute distress and patient oriented x3 HENMT: COMMON NORMALS: oropharynx normal Neck/C-Spine: COMMON NORMALS: no JVD Resp: COMMON NORMALS: normal respiratory effort AUSCULTATION: wheezes and diminished lung sounds Cardio: COMMON NORMALS: no JVD, regular rhythm, S1 normal heart sound present, S2 normal heart sound present and No murmurs present (Cardio) RHYTHM: regular rhythm HEART SOUNDS: S1 normal heart sound present and S2 normal heart sound present GI: COMMON NORMALS: Normal to inspection, nondistended, normoactive bowel sounds present, Soft to palpation and non-tender PALPATION: Yes Soft to palpation Extremity: COMMON NORMALS: no joint enlargement and no pedal edema Neuro: COMMON NORMALS: patient oriented x3 and moves all extremities Skin: COMMON NORMALS: no rashes or lesions noted GENERAL SKIN EXAM: no rashes or lesions noted Data : 05/13/21 05:15 05/13/21 15:14 Micro: Microbiology 05/09/21 21:50 Gram Stain - Final Sputum - Expectorated Sputum Sputum Culture - Final 05/07/21 23:58 Blood Culture - Final Blood NO GROWTH AFTER 5 DAYS 05/07/21 23:55 Blood Culture - Final Blood NO GROWTH AFTER 5 DAYS A&P Assessment and plan (1) Hyperkalemia: Potassium persistently elevated. Urine studies appreciated. Urine studies concerning for positive eosinophils. Cannot rule out AIN secondary to Zosyn versus PPIs and steroids. Stop prednisone. Kayexalate. We will consult nephrology for further recommendations. Repeat potassium in evening. Status: Acute (2) Acute kidney injury superimposed on CKD: Trending down to baseline. Medical reconciliation done for nephrotoxic drugs. Urine studies appreciated. Stop IV fluids. Kidney ultrasound results appreciated. Status: Acute (3) Pneumonia: Showing some slight gradual improvement. Back to baseline 2 L oxygen supplementation. Laying comfortably flat in bed. Afebrile. White count stable at 13.6. Procalcitonin has trended down and is normal now. Sputum culture so far preliminary negative, urine Legionella, bacterial antigen negative. Patient has finished 5-day course of Zosyn. COVID-19 PCR negative. Status: Acute Qualifiers: Pneumonia type: due to unspecified organism Laterality: bilateral Lung location: unspecified part of lung Qualified Code(s): J18.9 - Pneumonia, unspecified organism (4) COPD (chronic obstructive pulmonary disease): Acute COPD exacerbation seems to have resolved.. Stop Decadron. Start on prednisone 40 mg for 5 days. Antibiotics as above. Continue with DuoNebs every 6 hour, budesonide. Oxygen supplementation keeping saturation over 88%. Status: Chronic Qualifiers: COPD type: emphysema Emphysema type: centrilobular Qualified Code(s): J43.2 - Centrilobular emphysema (5) On home oxygen therapy: Chronically on 2 L. Appears to be approaching his baseline, but getting quite dyspneic with exertion. 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 transplanted heart: [place] heart Associated angina: without angina Qualified Code(s): I25.10 - Atherosclerotic heart disease of [place] coronary artery without angina pectoris (8) Tobacco use: Status: Chronic Additional A&P Information Could not reach his daughter for update by phone. Full code. Lovenox for DVT prophylaxis. Protonix for PUD prophylaxis. Discharge planning: If patient's creatinine and potassium remain stable can plan to discharge tomorrow. Will need COVID-19 rapid antigen prior to discharge. Attestations Medical Necessity Statement*: Patient requires further hospitalization for management of PRIYA, persistent hyperkalemia. Time Spent in Patient Care: Greater than 35 minutes (>than 50% of time spent in counselling and/or direct pt care on unit) . 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 Diagnoses Hyperkalemia E87.5 Acute kidney injury superimposed on CKD N17.9; N18.9 Pneumonia J18.9 Pneumonia type: due to unspecified organism Laterality: bilateral Lung location: unspecified part of lung COPD (chronic obstructive pulmonary disease) J43.2 COPD type: emphysema Emphysema type: centrilobular On home oxygen therapy Z99.81 Diabetes mellitus E11.22; N18.32; Z79.4 Diabetes mellitus type: type 2 Diabetes mellitus alf insulin use: with alf use Diabetes mellitus complication status: with kidney complications Diabetes mellitus complication detail: with chronic kidney disease Chronic kidney disease stage: stage 3 (moderate) Chronic kidney disease stage 3 subtype: stage 3b (GFR 30-44) CAD (coronary artery disease) I25.10 Coronary Disease-Associated Artery/Lesion type: [place] artery [place] vs. transplanted heart: [place] heart Associated angina: without angina Tobacco use Z72.0
[2021-05-13 17:37] LABS: Glucose Point of Care 206 mg/dL (70-110)
[2021-05-13] MEDS: mirtazapine 30 mg Tablet PO (20:38)
[2021-05-13 20:49] LABS: Glucose Point of Care 331 mg/dL (70-110)
[2021-05-14] VITALS (7 sets, daily range): BP systolic 114–126; BP diastolic 71–74; PULSE 61–67; RESP 18; TEMP 36.4–36.8; O2SAT 89–100
[2021-05-14] MEDS: ipratropium-albuterol 3 mL Neb INHALATION ×2 (03:07→08:06)
--- NOTE | 2021-05-14 05:54 | PC.NURSE ---
Patient AAOx4, resting in bed, calm and cooperative although would appreciate some non sugar free snacks. VSS, no needs, no new events, room clutter free, call light in reach, repositions self. Will report and handoff to oncoming nurse at shift change.
[2021-05-14] MEDS: insulin glargine 100 units/1 mL 20 UNIT SUBCUT (06:31)
[2021-05-14 06:33] LABS: Glucose Point of Care 181 mg/dL (70-110)
--- NOTE | 2021-05-14 07:31 | P.PN_ITS ---
Subjective Subjective: Interval history: feels better. would like to go to rehab. dec sob. no n/v/f/c/elias/d Medications: Reviewed: Yes Medication Review Details: Current Medications Acetaminophen (Acetaminophen 325 Mg Tablet) 650 mg PO Q6H PRN PRN Reason: Mild/Mod Pain Or Temp >/= 101 Hydrocodone Bitart/Acetaminophen (Hydrocodone-Acetaminophen 5-325 Mg Tablet) 1 tab PO Q8H PRN PRN Reason: Moderate Pain (Scale Score 5-6) Last Admin: 05/12/21 20:58 Dose: 1 tab Documented by: Albuterol Sulfate (Albuterol 8 Gm Mdi) 2 puff INHALATION Q4H.RESPIRATORY PRN PRN Reason: SHORTNESS OF BREATH Last Admin: 05/11/21 08:06 Dose: 2 puff Documented by: Albuterol/Ipratropium (Ipratropium-Albuterol 3 Ml Neb) 3 ml INHALATION Q6H.RESPIRATORY DAYSI Last Admin: 05/14/21 03:07 Dose: 3 ml Documented by: Aspirin (Aspirin 81 Mg Ec Tablet) 81 mg PO DAILY [facility] Last Admin: 05/13/21 08:38 Dose: 81 mg Documented by: Atorvastatin Calcium (Atorvastatin 40 Mg Tablet) 40 mg PO DAILY [facility] Last Admin: 05/13/21 08:37 Dose: 40 mg Documented by: Benzonatate (Benzonatate 100 Mg Capsule) 100 mg PO TID PRN PRN Reason: COUGH Bisacodyl (Bisacodyl 5 Mg Tablet) 10 mg PO DAILY PRN; Protocol PRN Reason: Constipation (see protocol) Budesonide (Budesonide 0.5 Mg/2 Ml Neb) 0.5 mg INHALATION BID.RESPIRATORY DAYSI Last Admin: 05/13/21 20:10 Dose: 0.5 mg Documented by: Buspirone HCl (Buspirone 10 Mg Tablet) 10 mg PO TID DAYSI Last Admin: 05/13/21 20:38 Dose: 10 mg Documented by: Calcium Carbonate (Calcium Carbonate 500 Mg Chew Tablet) 1,000 mg PO Q4H PRN PRN Reason: DYSPEPSI Cetirizine HCl (Cetirizine 10 Mg Tablet) 5 mg PO DAILY [facility] Last Admin: 05/13/21 08:37 Dose: 5 mg Documented by: Citalopram Hydrobromide (Citalopram 20 Mg Tablet) 10 mg PO DAILY [facility] Last Admin: 05/13/21 08:38 Dose: 10 mg Documented by: Dextrose (Dextrose 50% Syringe 50 Ml) 25 ml IVP ONCE PRN; Protocol PRN Reason: hypoglycemia protocol Dextrose (Dextrose 50% Syringe 50 Ml) 50 ml IVP PRN PRN; Protocol PRN Reason: hypoglycemia protocol Docusate Sodium (Docusate Sodium 100 Mg Capsule) 100 mg PO BID [facility] Last Admin: 05/13/21 18:34 Dose: 100 mg Documented by: Enoxaparin Sodium (Enoxaparin 40 Mg/0.4 Ml Syringe) 40 mg SUBCUT Q24H [facility] Last Admin: 05/13/21 08:36 Dose: 40 mg Documented by: Ferrous Sulfate (Ferrous Sulfate Ec 325 Mg Tablet) 325 mg PO BIDWM [facility] Last Admin: 05/13/21 18:35 Dose: 325 mg Documented by: Gabapentin (Gabapentin 100 Mg Capsule) 100 mg PO DAILY [facility] Last Admin: 05/13/21 08:38 Dose: 100 mg Documented by: Glucagon (Glucagon 1 Mg/Ml Inj 1 Ml) 1 mg IM ONCE PRN; Protocol PRN Reason: Adult Acute Hypoglycemia Prot. Guaifenesin (Guaifenesin 600 Mg Tablet) 1,200 mg PO BID [facility] Last Admin: 05/13/21 18:35 Dose: 1,200 mg Documented by: Hydrochlorothiazide (Hydrochlorothiazide 25 Mg Tablet) 25 mg PO DAILY [facility] Last Admin: 05/13/21 11:15 Dose: 25 mg Documented by: Dextrose (D5w) 500 mls @ 100 mls/hr IV ONCE PRN; Protocol PRN Reason: Adult Acute Hypoglycemia Prot Insulin Aspart (Insulin Aspart 100 Unit/1 Ml) 0 unit SUBCUT BEDTIME [facility]; Protocol Last Admin: 05/13/21 20:54 Dose: 6 unit Documented by: Insulin Aspart (Insulin Aspart 100 Unit/1 Ml) 0 unit SUBCUT TIDWM [facility]; Protocol Last Admin: 05/13/21 18:35 Dose: 6 unit Documented by: Insulin Glargine (Insulin Glargine 100 Units/1 Ml) 20 unit SUBCUT QAM [facility] Last Admin: 05/14/21 06:31 Dose: 20 unit Documented by: Lorazepam (Lorazepam 0.5 Mg Tablet) 0.5 mg PO BID PRN PRN Reason: Anxiety Last Admin: 05/12/21 00:02 Dose: 0.5 mg Documented by: Metoprolol Tartrate (Metoprolol Tartrate 25 Mg Tablet) 25 mg PO BID@0900,2100 [facility] Last Admin: 05/13/21 20:41 Dose: 25 mg Documented by: Mirtazapine (Mirtazapine 30 Mg Tablet) 30 mg PO BEDTIME [facility] Last Admin: 05/13/21 20:38 Dose: 30 mg Documented by: Nicotine (Nicotine 14 Mg Patch) 1 patch TRANSDERMA DAILY PRN PRN Reason: Nicotine Cravings Nitroglycerin (Nitroglycerin 0.4 Mg Sublingual Tablet) 0.4 mg SUBLINGUAL Q5M PRN PRN Reason: Chest Pain Ondansetron HCl (Ondansetron 2 Mg/Ml Sdv 2 Ml) 4 mg IVP Q8H PRN PRN Reason: vomiting, or N/V if npo Pantoprazole Sodium (Pantoprazole Dr 40 Mg Tablet) 40 mg PO DAILY [facility] Last Admin: 05/13/21 08:37 Dose: 40 mg Documented by: Tamsulosin HCl (Tamsulosin 0.4 Mg Capsule) 0.4 mg PO DAILY [facility] Last Admin: 05/13/21 08:38 Dose: 0.4 mg Documented by: Venlafaxine HCl (Venlafaxine Er (24hr) 75 Mg Capsule) 75 mg PO DAILY [facility] Last Admin: 05/13/21 08:37 Dose: 75 mg Documented by: Vitals/I&O/Wt Last Vital Signs Temp 98.2 F 05/14/21 03:23 Pulse 62 05/14/21 03:23 Resp 18 05/14/21 03:23 BP 126/74 05/14/21 03:23 Pulse Ox 96 05/14/21 03:23 05/13/21 05/14/21 05/14/21 22:59 06:59 14:59 Output Total 300 / 500 Balance -300 / 710 Physical Exam Narrative: EXAM NARRATIVE: NARD vss heent- nc/at, eomi, anicteric neck- supple lungs - crackles b/l heart reg,+LAUREN, no rub abd- soft, nt, nd, +BS ext no edema neuro- a,a, o x 3 pulses weak Data : 05/13/21 05:15 05/13/21 15:14 Micro: Microbiology 05/09/21 21:50 Gram Stain - Final Sputum - Expectorated Sputum Sputum Culture - Final A&P Additional A&P Information 66 yr old man: 1. CKD stage 3- likely stage 3b. baseline cr 1.4 in 2019- now cr 1.6- 1.9 mg/dl -renal us w/ lobulated, scarred kidneys- c/w CKD 2. PRIYA- Q progression, Q prerenal - Q of renal- pulm disease- as pt has hematuria and leukocytes in urine- only trace protein - Q AIN. eos noted- PPI's can cause AIN/ chronic int nephrritis- however, he is on steroids and cr is improving- would not stop PPI -repeat ua -limit nephrotoxins -d/c ivf -send serologies 3. hyperkalemia- can come form CKD, steroids, beta-blockers, or acidosis -add a diuretic- to spill potassium -may need lokelma as an outpt -avoid deborah-i/ aRB for now -await urine electrolytes 4- acid/ base status- resp acidosis and met alklalosis- balanced 5. DM control- as glucose improves, k should improve 6. htn- improved w/ hctz 7. if cr and k stable- renal okay for d/c on d/c- needs a 2 gm k, 1800 kcal ADA diet- and check chem 7 twice a week- may need lokelma on d/c seen and examined w/ rN- telehealth visit discussed w/ pt, RN, consent for telehealth visit obtained time spent 25 minutes Attestations Medical Necessity Statement*: hyperkalemia, ckd stage 3b Time Spent in Patient Care: 16 - 35 minutes Coding Level of Care Code Acute Controlled Area Checker for Naresh Pepper
[2021-05-14 08:03] LABS: Alanine Aminotransferase 20 U/L (0-41); Albumin Level 3.5 g/dL (3.5-5.2); Alkaline Phosphatase 81 IU/L (40-130); Anion Gap 13.6 (5-19); Aspartate Amino Transferase 14 U/L (0-40); Blood Urea Nitrogen 35 mg/dL (8-23); Calcium 8.8 mg/dL (8.5-10.5); Carbon Dioxide 32 mmol/L (22-29); Chloride 99 mmol/L (98-107); Globulin 3.7 g/dL (1.3-4.6); Glomerular Filtration Rate 43.7 mL/min (90-130); Glucose 154 mg/dL (65-115); Osmolality Calculated 301 mOsm/kg (285-295); Potassium 4.6 mmol/L (3.5-5.1); Sodium 140 mmol/L (136-145); Total Bilirubin 0.2 mg/dL (0.15-1.2); Total Protein 7.2 g/dL (6.6-8.7)
[2021-05-14] MEDS: budesonide 0.5 mg/2 mL Neb INHALATION (08:06)
[2021-05-14] MEDS: tamsulosin 0.4 mg Capsule PO (09:00)
[2021-05-14] MEDS: enoxaparin 40 mg/0.4 mL Syringe SUBCUT (09:00)
[2021-05-14] MEDS: docusate sodium 100 mg Capsule PO (09:00)
[2021-05-14] MEDS: guaiFENesin 600 mg Tablet 1200 MG PO (09:00)
[2021-05-14] MEDS: metoprolol tartrate 25 mg Tablet PO (09:01)
[2021-05-14] MEDS: pantoprazole DR 40 mg Tablet PO (09:01)
[2021-05-14] MEDS: ferrous sulfate EC 325 mg Tablet PO (09:01)
[2021-05-14] MEDS: cetirizine 10 mg Tablet 5 MG PO (09:01)
[2021-05-14] MEDS: BuSPIRONE 10 mg Tablet PO ×2 (09:02→14:59)
[2021-05-14] MEDS: venlafaxine ER (24HR) 75 mg Capsule PO (09:02)
[2021-05-14] MEDS: aspirin 81 mg EC Tablet PO (09:02)
[2021-05-14] MEDS: citalopram 20 mg Tablet 10 MG PO (09:02)
[2021-05-14] MEDS: atorvastatin 40 mg Tablet PO (09:02)
[2021-05-14] MEDS: hydroCHLOROthiazide 25 mg Tablet PO (09:04)
[2021-05-14] MEDS: predniSONE 20 mg Tablet PO (09:04)
[2021-05-14] MEDS: gabapentin 100 mg Capsule PO (09:05)
[2021-05-14 11:30] LABS: SARS Covid-2 Antigen Negative (Negative)
--- NOTE | 2021-05-14 11:45 | PM.DCS ---
Discharge Providers Date of Admission: 05/08/21 00:04 Date of Discharge: May 14, 2021 Attending Provider at Admission: Lilian Montez MD Attending Provider at Discharge: Cali Chacon MD Consults: Telemetry nephrology Diagnoses at Discharge Discharge Diagnosis (1) Hyperkalemia: Status: Acute (2) Acute kidney injury superimposed on CKD: Status: Acute (3) Pneumonia: Status: Acute Qualifiers: Pneumonia type: due to unspecified organism Laterality: bilateral Lung location: unspecified part of lung Qualified Code(s): J18.9 - Pneumonia, unspecified organism (4) COPD (chronic obstructive pulmonary disease): Status: Chronic Qualifiers: COPD type: emphysema Emphysema type: centrilobular Qualified Code(s): J43.2 - Centrilobular emphysema (5) On home oxygen therapy: Status: Chronic Permanent problem details: Usually on 2 L by nasal cannula (6) Diabetes mellitus: Status: Chronic Qualifiers: Diabetes mellitus type: type 2 Diabetes mellitus fci insulin use: with fci use Diabetes mellitus complication status: with kidney complications Diabetes mellitus complication detail: with chronic kidney disease Chronic kidney disease stage: stage 3 (moderate) Chronic kidney disease stage 3 subtype: stage 3b (GFR 30-44) Qualified Code(s): E11.22 - Type 2 diabetes mellitus with diabetic chronic kidney disease; N18.32 - Chronic kidney disease, stage 3b; 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 transplanted heart: soboba heart Associated angina: without angina Qualified Code(s): I25.10 - Atherosclerotic heart disease of soboba coronary artery without angina pectoris (8) Tobacco use: Status: Chronic Reason for Visit Reason for Visit: SOB/COUGH Hospital Course Hospital Course Marlo Gleason is a 66 year old male who resides at senior care in [place] who presented to the emergency room with chief complaint of increasing difficulty breathing and cough. He has a history of COPD for which she is on oxygen therapy chronically. Baseline oxygen is 2 L. He reports general malaise, increasing productive cough and headache recently. He denies any fever, nausea, vomiting or diarrhea. No reported loss of taste or smell. He has had to increase his oxygen to around 4 L by nasal cannula to maintain saturations. He is unsure if he has had any known Covid contacts. He has not received Covid vaccination. Work-up in the emergency room revealed evidence of pneumonia on chest x-ray, mild elevation in procalcitonin level, leukocytosis and hypoxemia. Patient was admitted to the hospital and started on broad-spectrum antibiotics. COVID-19 was ruled out. During hospitalization his blood culture, sputum culture remain negative. Echocardiogram was done which showed an EF of 60% with no regional wall motion abnormality. It is believed that patient is having COPD exacerbation secondary to pneumonia. He is to continue taking oral antibiotics for 3 more days to finish a course of antibiotics and slow taper of steroid as an outpatient. Patient's hospitalization was complicated and prolonged because of him developing PRIYA and persistent hyperkalemia. PRIYA resolved with gentle hydration and his creatinine is back to his baseline of 1.6. Patient persistently had hyperkalemia even after treatment because of which nephrology was consulted and he was started on low-dose of hydrochlorothiazide. Patient is been discharged in hemodynamically stable condition after COVID-19 antigen has been repeated and is negative with advised to continue taking antibiotics for 3 more days, slow steroid taper and hydrochlorothiazide for now with advised to recheck his CMP in 3 days. If he has hyperkalemia he can take Lokelma as per nephrology. Physical Exam Const: COMMON NORMALS: no acute distress and patient oriented x3 HENMT: COMMON NORMALS: oropharynx normal Neck/C-Spine: COMMON NORMALS: no JVD Resp: COMMON NORMALS: normal respiratory effort AUSCULTATION: wheezes and diminished lung sounds Cardio: COMMON NORMALS: no JVD, regular rhythm, S1 normal heart sound present, S2 normal heart sound present and No murmurs present (Cardio) RHYTHM: regular rhythm HEART SOUNDS: S1 normal heart sound present and S2 normal heart sound present GI: COMMON NORMALS: Normal to inspection, nondistended, normoactive bowel sounds present, Soft to palpation and non-tender PALPATION: Yes Soft to palpation Extremity: COMMON NORMALS: no joint enlargement and no pedal edema Neuro: COMMON NORMALS: patient oriented x3 and moves all extremities Skin: COMMON NORMALS: no rashes or lesions noted GENERAL SKIN EXAM: no rashes or lesions noted Discharge Data Data Completed and Pending: Completed Studies During Hospitalization Category Date Time Status XR chest 1V valerie ble [id number] Stat Exams 05/07/21 21:41 Completed CV. echo limited [id number] Routine Ultrasound 05/08/21 06:28 Completed US renal BI* [id number] Routine Ultrasound 05/10/21 08:31 Completed Pending at discharge Category Date Time Status DENY Screen w/ Ref raffy Stat Lab 05/13/21 15:14 Received Anti-Neutrophil C ytoplasmic AB Stat Lab 05/13/21 15:14 Received Comprehensive Met abolic Panel AM LA BS Lab 05/15/21 04:00 Ordered Comprehensive Met abolic Panel AM LA BS Lab 05/16/21 04:00 Ordered Comprehensive Met abolic Panel AM LA BS Lab 05/17/21 04:00 Ordered Magnesium AM LABS Lab 05/15/21 04:00 Ordered Magnesium AM LABS Lab 05/16/21 04:00 Ordered Magnesium AM LABS Lab 05/17/21 04:00 Ordered Miscellaneous Cee t Routine Lab 05/13/21 15:14 Received Phosphorus AM LAB S Lab 05/15/21 04:00 Ordered Phosphorus AM LAB S Lab 05/16/21 04:00 Ordered Phosphorus AM LAB S Lab 05/17/21 04:00 Ordered Urinalysis and Mi croscopic Stat Lab 05/13/21 09:57 Uncollected Urine Creatinine Routine Lab 05/13/21 09:57 Uncollected Urine Random Lyte s Routine Lab 05/13/21 09:57 Uncollected Urine Random Sodi um Routine Lab 05/13/21 09:57 Uncollected Labs from last 24 hours 05/14/21 05/14/21 05/14/21 10:15 07:38 06:29 Specimen Type Sample Site ABG pH ABG pCO2 ABG pO2 ABG HCO3 ABG O2 Saturation ABG Base Excess Baldo Test A-a O2 Gradient Hematocrit Hgb O2 Saturation Carboxyhemoglobin Methemoglobin Total Hemoglobin Sodium 140 Potassium 4.6 Glucose 154 H Ionized Calcium O2 Delivery Device O2 Liters/Min FiO2 Building Performance Consultant ID Chloride 99 Carbon Dioxide 32 H Anion Gap 13.6 BUN 35 H Creatinine 1.6 H GFR Calculation 43.7 L POC Glucose 181 H Calculated Osmolal ity 301 H Calcium 8.8 Total Bilirubin 0.2 AST 14 ALT 20 Alkaline Phosphata se 81 Total Protein 7.2 Albumin 3.5 Globulin 3.7 DENY Screen Hep Bs Antigen Hep Bs Antibody Hepatitis C Antibo dy SARS-CoV-2 Ag (Rap id) Negative Misc Test Referenc e Ref Test Comments 05/13/21 05/13/21 05/13/21 20:43 17:03 15:14 Specimen Type Sample Site ABG pH ABG pCO2 ABG pO2 ABG HCO3 ABG O2 Saturation ABG Base Excess Baldo Test A-a O2 Gradient Hematocrit Hgb O2 Saturation Carboxyhemoglobin Methemoglobin Total Hemoglobin Sodium Potassium Glucose Ionized Calcium O2 Delivery Device O2 Liters/Min FiO2 Building Performance Consultant ID Chloride Carbon Dioxide Anion Gap BUN Creatinine GFR Calculation POC Glucose 331 H 206 H Calculated Osmolal ity Calcium Total Bilirubin AST ALT Alkaline Phosphata se Total Protein Albumin Globulin DENY Screen Hep Bs Antigen Hep Bs Antibody Hepatitis C Antibo dy SARS-CoV-2 Ag (Rap id) Misc Test Referenc e Pending Ref Test Comments 05/13/21 05/13/21 05/13/21 15:14 15:14 15:14 Specimen Type Sample Site ABG pH ABG pCO2 ABG pO2 ABG HCO3 ABG O2 Saturation ABG Base Excess Baldo Test A-a O2 Gradient Hematocrit Hgb O2 Saturation Carboxyhemoglobin Methemoglobin Total Hemoglobin Sodium 141 Potassium 5.4 H Glucose 105 Ionized Calcium O2 Delivery Device O2 Liters/Min FiO2 Building Performance Consultant ID Chloride 99 Carbon Dioxide 27 Anion Gap 20.4 H BUN 38 H Creatinine 1.6 H GFR Calculation 43.7 L POC Glucose Calculated Osmolal ity 301 H Calcium 9.2 Total Bilirubin AST ALT Alkaline Phosphata se Total Protein Albumin Globulin DENY Screen Pending Hep Bs Antigen Hep Bs Antibody Hepatitis C Antibo dy SARS-CoV-2 Ag (Rap id) Misc Test Referenc e Ref Test Comments Pending 05/13/21 05/13/21 15:14 13:05 Specimen Type Arterial Sample Site Radial, right ABG pH 7.39 ABG pCO2 47.6 H ABG pO2 69.1 L ABG HCO3 29.1 H ABG O2 Saturation 95.3 ABG Base Excess 3.4 H Baldo Test Pos A-a O2 Gradient 9.5 Hematocrit 37.1 L Hgb O2 Saturation 93.8 L Carboxyhemoglobin 1.0 Methemoglobin 0.6 Total Hemoglobin 12.1 L Sodium 139.0 Potassium 5.0 Glucose 224.0 H Ionized Calcium 1.2 O2 Delivery Device Nc O2 Liters/Min 2.0 FiO2 28.0 Building Performance Consultant ID Gd Chloride Carbon Dioxide Anion Gap BUN Creatinine GFR Calculation POC Glucose Calculated Osmolal ity Calcium Total Bilirubin AST ALT Alkaline Phosphata se Total Protein Albumin Globulin DENY Screen Hep Bs Antigen Non-reactive Hep Bs Antibody 3.5 L Hepatitis C Antibo dy Non-reactive SARS-CoV-2 Ag (Rap id) Misc Test Referenc e Ref Test Comments Addt'l Data from Hospital Stay: Laboratory Results WBC 12.4 10^3/uL (4.0 -10.0) H 05/13/21 05:15 RBC 5.08 10^6/uL (4.1 -5.3) 05/13/21 05:15 Hgb 12.4 g/dL (11.7-1 6.6) 05/13/21 05:15 Hct 41.4 % (42.0-52.0 ) L 05/13/21 05:15 MCV 81.5 fl (80-94) 05/13/21 05:15 MCH 24.4 pg (28.0-34. 0) L 05/13/21 05:15 MCHC 30.0 g/dL (30.0-3 6.0) 05/13/21 05:15 RDW 17.6 % (12.1-15.1 ) H 05/13/21 05:15 Plt Count 359 10^3/cmm (130 -400) 05/13/21 05:15 MPV 9.0 fL (7.4-10.4) 05/13/21 05:15 Neut % (Auto) 80.8 % 05/13/21 05:15 Lymph % (Auto) 10.3 % 05/13/21 05:15 [place] % (Auto) 3.6 % 05/13/21 05:15 Eos % (Auto) 0.1 % 05/13/21 05:15 Baso % (Auto) 0.4 % 05/13/21 05:15 Neut # (Auto) 10.00 10^3/uL (1. 8-7.7) H 05/13/21 05:15 Lymph # (Auto) 1.3 10^3/uL (0.8- 4.8) 05/13/21 05:15 [place] # (Auto) 0.5 10^3/uL (0.2- 0.9) 05/13/21 05:15 Eos # (Auto) 0.0 10^3/uL (0.0- 0.8) 05/13/21 05:15 Baso # (Auto) 0.1 10^3/uL (0.0- 0.1) 05/13/21 05:15 Nucleated RBC % (a uto) 0 % 05/13/21 05:15 Nucleated RBCs # 0.0 /100WBC 05/13/21 05:15 PT 13.80 SECONDS (12 .1-14.9) 05/07/21 22:10 INR 1.03 (0.8-1.2) 05/07/21 22:10 APTT 38.7 SECONDS (23. 9-36.7) H 05/07/21 22:10 D-Dimer 0.60 ug/mIFEU (0- 0.59) H 05/07/21 22:10 Specimen Type Arterial 05/13/21 13:05 Sample Site Radial, right 05/13/21 13:05 ABG pH 7.39 (7.35-7.45) 05/13/21 13:05 ABG pCO2 47.6 mmHg (35-45) H 05/13/21 13:05 ABG pO2 69.1 mmHg (80.0-1 00.0) L 05/13/21 13:05 ABG HCO3 29.1 mmol/L (22-2 6) H 05/13/21 13:05 ABG O2 Saturation 95.3 05/13/21 13:05 ABG Base Excess 3.4 mmol/L (-2.0- 2.0) H 05/13/21 13:05 Baldo Test Pos 05/13/21 13:05 A-a O2 Gradient 9.5 mmHg (5-10) 05/13/21 13:05 Hematocrit 37.1 % (42-52) L 05/13/21 13:05 Hgb O2 Saturation 93.8 % (95-100) L 05/13/21 13:05 Carboxyhemoglobin 1.0 %THgb (0.4-20 .1) 05/13/21 13:05 Methemoglobin 0.6 % (0.4-1.5) 05/13/21 13:05 Total Hemoglobin 12.1 g/dL (14-18) L 05/13/21 13:05 Sodium 139.0 mmol/L (131 -143) 05/13/21 13:05 Potassium 5.0 mmol/L (3.5-5 .0) 05/13/21 13:05 Glucose 224.0 mg/dL (70-1 15) H 05/13/21 13:05 Ionized Calcium 1.2 mmol/L (1.1-1 .4) 05/13/21 13:05 O2 Delivery Device Nc 05/13/21 13:05 O2 Liters/Min 2.0 % 05/13/21 13:05 FiO2 28.0 % 05/13/21 13:05 Building Performance Consultant ID Gd 05/13/21 13:05 Sodium 140 mmol/L (136-1 45) 05/14/21 07:38 Potassium 4.6 mmol/L (3.5-5 .1) 05/14/21 07:38 Chloride 99 mmol/L (98-107 ) 05/14/21 07:38 Carbon Dioxide 32 mmol/L (22-29) H 05/14/21 07:38 Anion Gap 13.6 (5-19) 05/14/21 07:38 BUN 35 mg/dL (8-23) H 05/14/21 07:38 Creatinine 1.6 mg/dL (0.7-1. 2) H 05/14/21 07:38 GFR Calculation 43.7 mL/min (90-1 30) L 05/14/21 07:38 Glucose 154 mg/dL (65-115 ) H 05/14/21 07:38 POC Glucose 181 mg/dL (70-110 ) H 05/14/21 06:29 Calculated Osmolal ity 301 mOsm/kg (285- 295) H 05/14/21 07:38 Lactic Acid 1.0 mmol/L (0.5-2 .2) 05/08/21 06:54 Calcium 8.8 mg/dL (8.5-10 .5) 05/14/21 07:38 Phosphorus 3.7 mg/dL (2.5-4. 5) 05/09/21 08:57 Magnesium 1.9 mg/dL (1.7-2. 3) 05/09/21 08:57 Ferritin 162 ng/mL (30-400 ) 05/08/21 06:54 Total Bilirubin 0.2 mg/dL (0.15-1 .2) 05/14/21 07:38 AST 14 U/L (0-40) 05/14/21 07:38 ALT 20 U/L (0-41) 05/14/21 07:38 Alkaline Phosphata se 81 IU/L (40-130) 05/14/21 07:38 Lactate Dehydrogen ase 113 U/L (135-225) L 05/08/21 06:54 Creatine Kinase 23 U/L (39-308) L 05/13/21 05:15 Troponin T Gen 5 n g/L 45 ng/L (0-15) H 05/08/21 06:54 C-Reactive Protein 236.4 mg/L (0.0-4 .9) H 05/08/21 06:54 NT-Pro-B Natriuret Pep 1029 pg/mL (0-125 ) H 05/07/21 22:10 Total Protein 7.2 g/dL (6.6-8.7 ) 05/14/21 07:38 Albumin 3.5 g/dL (3.5-5.2 ) 05/14/21 07:38 Globulin 3.7 g/dL (1.3-4.6 ) 05/14/21 07:38 Procalcitonin 0.24 ng/mL (0-0.5 ) 05/12/21 04:58 Urine Color Straw (Yellow) 05/07/21 22:35 Urine Appearance Clear (CLEAR) 05/07/21 22:35 Urine pH 5 (5-7) 05/07/21 22:35 Ur Specific Gravit y 1.010 (1.005-1.0 30) 05/07/21 22:35 Urine Protein Trace (Negative) 05/07/21 22:35 Urine Glucose (UA) Norm (Normal) 05/07/21 22:35 Urine Ketones Negative (Negati ve) 05/07/21 22:35 Urine Blood Neg (Negative) 05/07/21 22:35 Urine Nitrate Negative (Negati ve) 05/07/21 22:35 Urine Bilirubin Neg (Negative) 05/07/21 22:35 Urine Urobilinogen Norm mg/dL (Negat arti) 05/07/21 22:35 Ur Leukocyte Denise ase Negative (Negati ve) 05/07/21 22:35 Urine RBC 15-25 /hpf (0-2) H 05/07/21 22:35 Urine WBC 5-10 /hpf (0-5) H 05/07/21 22:35 Ur Eosinophil Smea r 2 (0-0) H 05/12/21 18:00 Ur Squamous Epith Cells 0-4 /hpf (0-5) H 05/07/21 22:35 Amorphous Sediment 1+ /hpf 05/07/21 22:35 Urine Bacteria Trace /hpf (NONE) 05/07/21 22:35 Urine Mucus 2+ /hpf 05/07/21 22:35 Urine Eosinophils Eosinophils seen H 05/12/21 18:00 Ur Random Sodium 77 mmol/L 05/12/21 18:00 Ur Random Potassiu m 24 mmol/L 05/12/21 18:00 Ur Random Chloride 62 mmol/L 05/12/21 18:00 Urine Creatinine 42 mg/dL (39-259) 05/12/21 18:00 Nasal/Oral COVID-1 9 PCR Not detected 05/08/21 00:20 Hep Bs Antigen Non-reactive (No nreactive) 05/13/21 15:14 Hep Bs Antibody 3.5 (11.5-1000) L 05/13/21 15:14 Hepatitis C Antibo dy Non-reactive (No nreactive) 05/13/21 15:14 SARS-CoV-2 Ag (Rap id) Negative (Negati ve) 05/14/21 10:15 Misc Test Referenc e See comment 05/08/21 07:18 Impressions Chest X-Ray 05/07/21 21:41 IMPRESSION: Interstitial and patulous opacities in the mid and lower lungs suspicious for multifocal pneumonia. Renal Ultrasound 05/10/21 08:31 IMPRESSION: Lobulated contour of the kidneys, suggestive of chronic scarring. Otherwise unremarkable ultrasound examination. Microbiology 05/09/21 21:50 Sputum - Expectorated Sputum Gram Stain - Final 05/09/21 21:50 Sputum - Expectorated Sputum Sputum Culture - Final 05/07/21 23:58 Blood Blood Culture - Final NO GROWTH AFTER 5 DAYS 05/07/21 23:55 Blood Blood Culture - Final NO GROWTH AFTER 5 DAYS 05/08/21 17:45 Urine,Clean Catch Bacterial Antigens - Final 05/08/21 17:45 Urine,Clean Catch Legionella Urinary Antigen - Final Vitals: Last Vital Signs Temp 97.5 F L 05/14/21 08:00 Pulse 63 05/14/21 08:09 Resp 18 05/14/21 08:07 BP 121/71 05/14/21 08:00 Pulse Ox 92 05/14/21 08:07 Discharge Plan Discharge Patient Disposition: Xfer [facility] Condition: Stable Prescriptions: New hydrochlorothiazide 25 mg Tablet 12.5 mg PO DAILY 30 Days Qty: 15 RF: 0 doxycycline monohydrate 100 mg capsule 100 mg PO BID 3 Days Qty: 6 RF: 0 prednisone 10 mg tablets,dose pack See Rx Instructions .ROUTE .COMPLEX Qty: 21 RF: 0 levofloxacin 500 mg tablet 500 mg PO Q48H 3 Days Qty: 2 RF: 0 Continued aspirin [Adult Low Dose Aspirin] 81 mg tablet,delayed release (DR/EC) 81 mg PO DAILY RF: 0 atorvastatin 40 mg tablet 40 mg PO DAILY RF: 0 buspirone 10 mg tablet 10 mg PO TID RF: 0 venlafaxine 75 mg capsule,extended release 24hr 75 mg PO DAILY RF: 0 Mucinex 1,200 mg tablet extended release 12hr 1,200 mg PO BID RF: 0 metoprolol tartrate 25 mg tablet 25 mg PO BID RF: 0 nitroglycerin 0.4 mg tablet, sublingual 0.4 mg sublingual Q5M PRN (Reason: Chest Pain) RF: 0 amlodipine 2.5 mg tablet 2.5 mg PO DAILY RF: 0 omeprazole 20 mg capsule,delayed release(DR/EC) 20 mg PO DAILY RF: 0 mirtazapine 30 mg tablet 30 mg PO DAILY RF: 0 tamsulosin 0.4 mg capsule 0.4 mg PO DAILY RF: 0 albuterol sulfate 2.5 mg /3 mL (0.083 %) solution for nebulization 2.5 mg inhalation Q4H PRN (Reason: shortness of breath) RF: 0 citalopram 10 mg tablet 10 mg PO DAILY RF: 0 cetirizine 5 mg tablet 5 mg PO DAILY RF: 0 gabapentin 100 mg capsule 100 mg PO DAILY RF: 0 ipratropium-albuterol 0.5 mg-3 mg(2.5 mg base)/3 mL solution for nebulization 3 ml inhalation QID PRN (Reason: laxative) RF: 0 Basaglar KwikPen U-100 Insulin 100 unit/mL (3 mL) insulin pen 20 unit SUBCUT QAM RF: 0 ferrous sulfate 325 mg (65 mg iron) tablet 325 mg PO BID RF: 0 lorazepam 1 mg tablet 1 mg PO BID PRN (Reason: Anxiety) RF: 0 hydrocodone-acetaminophen 5-325 mg tablet 1 tab PO Q8H PRN (Reason: Moderate Pain (Scale Score 5-6)) RF: 0 senna 8.6 mg Tablet 8.6 mg PO BID PRN (Reason: Laxative Effect) RF: 0 Miralax 17 gram Powder In Packet 17 g PO DAILY PRN (Reason: Constipation) RF: 0 Mapap Arthritis Pain 650 mg Tablet Extended Release 650 mg PO Q12H RF: 0 bisacodyl 10 mg Suppository 10 mg MA DAILY PRN (Reason: Constipation) RF: 0 Enema Disposable 19-7 gram/118 mL Enema 118 ml MA PRN RF: 0 nicotine 14 mg/24 hr Patch 24 Hour 1 patch TRANSDERMAL DAILY PRN (Reason: Nicotine Cravings) RF: 0 Trelegy Ellipta 100-62.5-25 mcg Blister With Device 1 inh INHALATION DAILY RF: 0 Discharge Orders: Discharge Order (Routine); Ordered 05/14/21 Ordered By: Cali Chacon Discharge Diet: Cardiac Discharge Activity: Resume usual activity Patient Instructions: Opioid Safety Activity Restrictions/Additional Instructions: Follow-up with your primary care provider within next 1 week. Please repeat CMP next 3 days. Discharge Attestations Time Spent in Discharge Care*: greater than 30 min Specific Discharge Activities: educating patient, discussing with pcp/other providers, discussing with patient case coordinator/social workers/dc planners, documenting/other paperwork and evaluating patient/reviewing data Status at Discharge: Cognitive status at discharge: cognitively intact, Behavioral status at discharge: cooperative, Functional status at discharge: uses cane/walker Overall status at discharge: patient is back to baseline Quality Metrics Clinical Quality Measures During this hospital stay, did patient experience: None Coding Level of Care Code Acute g DC note Diagnoses Hyperkalemia E87.5 Acute kidney injury superimposed on CKD N17.9; N18.9 Pneumonia J18.9 Pneumonia type: due to unspecified organism Laterality: bilateral Lung location: unspecified part of lung COPD (chronic obstructive pulmonary disease) J43.2 COPD type: emphysema Emphysema type: centrilobular On home oxygen therapy Z99.81 Diabetes mellitus E11.22; N18.32; Z79.4 Diabetes mellitus type: type 2 Diabetes mellitus ocean transportation intermediary insulin use: with ocean transportation intermediary use Diabetes mellitus complication status: with kidney complications Diabetes mellitus complication detail: with chronic kidney disease Chronic kidney disease stage: stage 3 (moderate) Chronic kidney disease stage 3 subtype: stage 3b (GFR 30-44) CAD (coronary artery disease) I25.10 Coronary Disease-Associated Artery/Lesion type: [place] artery Platinum vs. transplanted heart: soboba heart Associated angina: without angina Tobacco use Z72.0
[2021-05-14 12:53] LABS: Glucose Point of Care 193 mg/dL (70-110)
[2021-05-15 12:38] LABS: Anti-Nuclear Antibody Pattern Cytoplasmic; Anti-Nuclear Antibody Screen POSITIVE (NEGATIVE); Anti-Nuclear Antibody Titer 1:40 titer
[2021-05-16 22:43] LABS: ANCA Interp Negative (Negative)
== END 2021-05-14 16:20 | disposition skilled nursing facility (03) | DRG 194 ==
LOC: ER 05-08 00:17 → MEDSURG 05-08 00:56
PROVIDERS: Emergency Medicine; Internal Medicine; Internal Medicine Nephrology; Admitting Provider Hospitalist; Emergency Provider Emergency Medicine; Visit Provider Student in an Organized Health Care Education/Training Program
DX: J18.9 Pneumonia, unspecified organism (principal); N17.9 Acute kidney failure, unspecified; J43.2 Centrilobular emphysema; Z99.81 Dependence on supplemental oxygen; F41.9 Anxiety disorder, unspecified; F17.210 Nicotine dependence, cigarettes, uncomplicated; I25.10 Atherosclerotic heart disease of native coronary artery without angina pectoris; Z95.5 Presence of coronary angioplasty implant and graft; Z95.0 Presence of cardiac pacemaker; E11.22 Type 2 diabetes mellitus with diabetic chronic kidney disease; I12.9 Hypertensive chronic kidney disease with stage 1 through stage 4 chronic kidney disease, or unspecified chronic kidney disease; N18.32 Chronic kidney disease, stage 3b; K21.9 Gastro-esophageal reflux disease without esophagitis; M10.9 Gout, unspecified; N40.0 Benign prostatic hyperplasia without lower urinary tract symptoms; E11.51 Type 2 diabetes mellitus with diabetic peripheral angiopathy without gangrene; Z85.828 Personal history of other malignant neoplasm of skin; E87.5 Hyperkalemia; Z79.82 Long term (current) use of aspirin; Z79.51 Long term (current) use of inhaled steroids; Z79.891 Long term (current) use of opiate analgesic
CPT/HCPCS: 36415; 36416; 36600; 71045; 76770; 76857; 80048; 80051; 80053; 81001; 82330; 82436; 82550; 82570; 82728; 82805; 82962; 83516; 83520; 83605; 83615; 83735; 83880; 84100; 84132; 84133; 84145; 84300; 84484; 85025; 85378; 85610; 85730; 85999; 86038; 86140; 86403; 86706; 86803; 87040; 87070; 87205; 87340; 87426; 87449; 87635; 87641; 93005; 93308; 94640; 96365; 96367; 96372; 96375; 99285; J0456; J0696; J1100; J1650; J1815 ×2; J2543; J3535; J7030; J7050; J7512; J7626

== ENCOUNTER 2021-09-14 20:56 | Emergency (ER) | payer MEDICARE, MEDICAID, SELFPAY ==
[2021-09-14 21:03] VITALS: BP 142/64; PULSE 74; TEMP 36.7; BMI 30.4
--- NOTE | 2021-09-14 21:31 | ECG_ITS ---
[facility] Test Date: 2021-09-14 Pat Name: Marlo Gleason Department: Room: Gender: Male Medicare Compliance Auditor: : 1955 Requested By: Phill Vargas Order Number: [id number] Joy MD: Kylee Marcelo M.D. Measurements Intervals [place] Rate: 66 P: -26 [place]: 201 QRS: 72 QRSD: 89 T: 36 QT: 381 QTc: 399 Interpretive Statements SINUS RHYTHM Compared to ECG 05/08/2021 10:30:48 First degree AV block no longer present Electronically Signed On 09-14-2021 22:18:15 [employer]ITTER by Kylee Marcelo M.D. [email or web address]
--- NOTE | 2021-09-14 21:33 | ED_ITS ---
HPI - SOB/Dyspnea General: Chief Complaint: Shortness of Breath/Dyspnea Stated Complaint: SOB Time Seen by Provider: 09/14/21 21:25 History of Present Illness: HPI Narrative: Patient is a 66-year-old male comes the ED with shortness of breath. Patient has a past medical history of COPD and is on 2 L of O2 continuously at shelter. Approximately 4 days ago he reports having worsening shortness of breath upon exertion. Patient says he does not have any shortness of breath at rest or when lying flat. He has not had to increase his O2 flow rate and is still at 2 L of O2 continuously and staying above 90% O2 saturation. Denies any chest pain, heart palpitations or fevers. He does report having a mild cough with white sputum production. Denies any fever, chills, nausea/vomiting, chest pain, abdominal pain, bladder or bowel symptoms. MD elicited complaint: shortness of breath Associated symptoms: Deny abdominal pain, chest pain, fever(s), nausea, orthopne a, palpitations or vomiting Review of Systems Const: Denies: fever(s), chills or fatigue Eyes: Denies: change in vision or eye discomfort ENMT: Denies: throat pain, odynophagia, nasal discharge or nasal congestion Card: Denies: chest pain, palpitations, edema, swelling of feet/ankles, dyspnea on exertion or orthopnea Resp: Reports: dyspnea (worse on exertion) and productive cough; Denies: non-productive cough GI: Denies: abdominal pain, nausea, vomiting, diarrhea, constipation or hematochezia : Denies: flank pain, difficulty urinating, dysuria or hematuria Musc: Denies: neck pain, back pain or extremity swelling Skin/Breast: Denies: rash or new lesions Neuro: Denies: headache(s), numbness in extremities or weakness in extremities PFSH ED PFSH: Medical History Anxiety disorder CAD (coronary artery disease) CKD (chronic kidney disease) COPD (chronic obstructive pulmonary disease) Diabetes mellitus GERD (gastroesophageal reflux disease) Gout Hypertension On home oxygen therapy Usually on 2 L by nasal cannula Prostatic hypertrophy PVD (peripheral vascular disease) Skin cancer Specific type unknown Tobacco use Surgical History History of cholecystectomy History of coronary artery stent placement X2 History of skin surgery Left neck for skin cancer Presence of coronary angioplasty implant and graft Family History Mother Cancer Father CAD (coronary artery disease) Social History Smoking and tobacco status: current every day smoker cigarettes Years cigarettes smoked: 60 Quit status (tobacco): not considering quitting Second hand smoke exposure: Yes Alcohol intake: former Caregiver/support person: Yes Lives independently: No Housing: Retirement Marital status: / service: No Current occupational status: disabled Pets and animals: Yes Current gender identity: Male Physical Exam Const: COMMON NORMALS: no acute distress, patient oriented x3, healthy appearing and alert HENMT: COMMON NORMALS: normocephalic HEAD & SCALP: normocephalic MOUTH: Normal oral and palatal mucosa present THROAT: posterior oropharynx normal and uvula midline Eye: COMMON NORMALS: Equal, round and reactive pupils present PUPIL: Yes Equal, round and reactive pupils present Neck/C-Spine: COMMON NORMALS: supple GENERAL: Yes normal visual inspection Resp: COMMON NORMALS: normal respiratory effort, No retractions and No use of accessory muscles EFFORT & INSPECTION: Yes able to speak in complete sentences, No tachypneic, No respiratory distress and No labored AUSCULTATION: crackles Laterality: left and wheezes expiratory wheezes and scattered wheezes Cardio: COMMON NORMALS: regular rate, regular rhythm, S1 normal heart sound present, S2 normal heart sound present, No gallops present (Cardio), No clicks present (Cardio), No murmurs present (Cardio) and Peripheral pulses 2+ throughout RATE: regular rate RHYTHM: regular rhythm HEART SOUNDS: S1 normal heart sound present and S2 normal heart sound present PERIPHERAL PULSES: Peripheral pulses 2+ throughout GI: COMMON NORMALS: Normal to inspection, nondistended, normoactive bowel sounds present, Soft to palpation, non-tender and no masses PALPATION: Yes Soft to palpation : COMMON NORMALS: Yes no CVA tenderness BLADDER/KIDNEY EXAM: Yes no CVA tenderness Back/Pelvis: COMMON NORMALS: no CVA tenderness Extremity: COMMON NORMALS: normal to inspection Neuro: COMMON NORMALS: patient oriented x3 and moves all extremities SENSORIUM/ORIENTATION: Yes alert Skin: GENERAL SKIN EXAM: dry skin Course Vital Signs: Vital signs: Vital Signs Temperature 98.0 F 12/27/21 21:03 Pulse Rate 72 09/15/21 02:46 Respiratory Rate 20 H 09/15/21 02:46 Blood Pressure 126/78 09/15/21 02:46 Pulse Oximetry 95 09/15/21 02:46 Patient's pulse ox was around 92% at 2 L via nasal cannula while I was in the room with patient. MDM - SOB/Dyspnea MDM Narrative: Medical decision making narrative: Patient is a 66-year-old male comes to the ED with shortness of breath upon exertion. Patient has a past medical history of COPD and is at 2 L of O2 continuously via nasal cannula at shelter. Symptoms started approximately 4 days ago. Reports mild cough with some white sputum production. Denies any fever, chest pain or any shortness of breath at rest or when lying flat. Vitals stable patient was moved to 2 L of O2 via nasal cannula here in the ED and his O2 saturation stayed above 90%. Patient had some left lower lobe crackling upon auscultation. Some scattered wheezing noted as well. White blood cell count 15.5 and the rest of CBC and CMP were unremarkable. Troponins were negative. BNP was 564. EKG showed normal sinus rhythm with no ST segment ovation depression seen. Chest x- ray showed Moderate bilateral mid and lower lung field opacities most consistent with pneumonia. patient was given dose of Rocephin, Solu-Medrol and a DuoNeb breathing treatment while here in the ED. patient appeared stable for discharge back to shelter. He was discharged with a prescription for doxycycline and Medrol Dosepak. Return to ED precautions given. Patient understood agree with plan. Lab Data: Attestation: I reviewed the patient's lab results. Labs: Lab Results 09/14/21 09/14/21 09/14/21 21:50 21:50 21:50 WBC 15.5 10^3/uL H 10 ^3/uL (4.0-10.0) RBC 4.79 10^6/uL 10^6 /uL (4.1-5.3) Hgb 11.9 g/dL g/dL (11.7-16.6) Hct 39.0 % L % (42.0-52.0) MCV 81.4 fl fl (80-94) MCH 24.8 pg L pg (28.0-34.0) MCHC 30.5 g/dL g/dL (30.0-36.0) RDW 15.3 % H % (12.1-15.1) Plt Count 402 10^3/cmm H 10 ^3/cmm (130-400) MPV 9.2 fL fL (7.4-10.4) Neut % (Auto) 68.3 % % Lymph % (Auto) 17.2 % % Pierce % (Auto) 9.1 % % Eos % (Auto) 3.9 % % Baso % (Auto) 0.5 % % Neut # (Auto) 10.56 10^3/uL H 1 0^3/uL (1.8-7.7) Lymph # (Auto) 2.7 10^3/uL 10^3/ uL (0.8-4.8) Pierce # (Auto) 1.4 10^3/uL H 10^ 3/uL (0.2-0.9) Eos # (Auto) 0.6 10^3/uL 10^3/ uL (0.0-0.8) Baso # (Auto) 0.1 10^3/uL 10^3/ uL (0.0-0.1) Nucleated RBC % (a uto) 0 % % Nucleated RBCs # 0.0 /100WBC /100W BC Sodium 137 mmol/L mmol/L (136-145) Potassium 4.7 mmol/L mmol/L (3.5-5.1) Chloride 98 mmol/L mmol/L (98-107) Carbon Dioxide 29 mmol/L mmol/L (22-29) Anion Gap 14.7 (5-19) BUN 20 mg/dL mg/dL (8-23) Creatinine 1.6 mg/dL H mg/dL (0.7-1.2) GFR Calculation 43.7 mL/min L mL/ min (90-130) Glucose 180 mg/dL H mg/dL (65-115) Calculated Osmolal ity 291 mOsm/kg mOsm/ kg (285-295) Calcium 8.4 mg/dL L mg/dL (8.5-10.5) Total Bilirubin 0.2 mg/dL mg/dL (0.15-1.2) AST 9 U/L U/L (0-40) ALT 12 U/L U/L (0-41) Alkaline Phosphata se 110 IU/L IU/L (40-130) Troponin T Baselin e 46 ng/L H ng/L (0-15) Troponin T 120 Min sofie Delta Troponin T NT-Pro-B Natriuret Pep 564 pg/mL H pg/mL (0-125) Total Protein 7.4 g/dL g/dL (6.6-8.7) Albumin 3.5 g/dL g/dL (3.5-5.2) Globulin 3.9 g/dL g/dL (1.3-4.6) 09/14/21 23:40 WBC RBC Hgb Hct MCV MCH MCHC RDW Plt Count MPV Neut % (Auto) Lymph % (Auto) Pierce % (Auto) Eos % (Auto) Baso % (Auto) Neut # (Auto) Lymph # (Auto) Pierce # (Auto) Eos # (Auto) Baso # (Auto) Nucleated RBC % (a uto) Nucleated RBCs # Sodium Potassium Chloride Carbon Dioxide Anion Gap BUN Creatinine GFR Calculation Glucose Calculated Osmolal ity Calcium Total Bilirubin AST ALT Alkaline Phosphata se Troponin T Baselin e Troponin T 120 Min sofie 44.02 ng/L H ng/L (0-15) Delta Troponin T -1.98 ABS# L ABS# (0-10) NT-Pro-B Natriuret Pep Total Protein Albumin Globulin Imaging Data^: CXR: Attestation: I personally reviewed and interpreted this imaging study as follows: Radiologist's impression: [address] [address] XRay Report Signed Patient: Marlo Gleason Unit #: [id number] : 1955 Age/Sex: 66 / M ADM Date: 09/14/21 Loc: ER Room/Bed: Attending Dr: Ordering Provider/Ordering MD: Phill Vargas Date of Service: 09/14/21 Procedure(s): XR chest 1V portable [id number] Accession Number(s): [id number] Report Number: [id number] PROCEDURE INFORMATION: Exam: XR Chest Exam date and time: 09/14/2021 9:31 PM Age: 66 years old Clinical indication: Shortness of breath; Prior surgery; Surgery type: Stents; Additional info: SOB TECHNIQUE: Imaging protocol: XR of the chest. Views: 1 view. COMPARISON: CR (CHEST, ) 05/07/2021 9:45 PM FINDINGS: Lungs: Moderate bilateral mid and lower lung field opacities most consistent with pneumonia. Pleural spaces: Unremarkable. No pleural effusion. No pneumothorax. Heart/Mediastinum: Unchanged mild deviation of the trachea to the left of midline which was present on CT chest dated October 08, 1999 18 with no right mediastinal mass. Normal for this patient. Bones/joints: Unremarkable. XR/XR chest 1V portable [id number] IMPRESSION: Moderate bilateral mid and lower lung field opacities most consistent with pneumonia. Dictated By: Luis Bland MD Signed By: Luis Bland MD Signed Date/Time: 09/14/212213 DD/ 30 EKG Data^: EKG 1: Attestation: I personally reviewed and interpreted this EKG as follows: EKG Interpretation Date: 09/14/21 Interpretation: Normal sinus rhythm, no ST segment ovation depression seen. 66 bpm. EKG 2: Attestation: I personally reviewed and interpreted this EKG as follows: EKG Interpretation Date: 09/14/21 Interpretation: 2-hour EKG?normal sinus rhythm, 65 bpm, no ST segment elevation or depression seen. Discharge Plan Discharge Patient Disposition: Home Clinical Impression: Pneumonia Qualifiers: Pneumonia type: due to unspecified organism Laterality: bilateral Lung location: lower lobe of lung Qualified Code(s): J18.9 - Pneumonia, unspecified organism Condition: Stable Prescriptions: New doxycycline hyclate 100 mg capsule 100 mg PO BID 14 Days Qty: 28 RF: 0 methylprednisolone 4 mg tablets,dose pack See Rx Instructions .ROUTE .COMPLEX Qty: 21 RF: 0 No Action aspirin [Adult Low Dose Aspirin] 81 mg tablet,delayed release (DR/EC) 81 mg PO DAILY RF: 0 atorvastatin 40 mg tablet 40 mg PO DAILY RF: 0 buspirone 10 mg tablet 10 mg PO TID RF: 0 venlafaxine 75 mg capsule,extended release 24hr 75 mg PO DAILY RF: 0 Mucinex 1,200 mg tablet extended release 12hr 1,200 mg PO BID RF: 0 metoprolol tartrate 25 mg tablet 25 mg PO BID RF: 0 nitroglycerin 0.4 mg tablet, sublingual 0.4 mg sublingual Q5M PRN (Reason: Chest Pain) RF: 0 amlodipine 2.5 mg tablet 2.5 mg PO DAILY RF: 0 omeprazole 20 mg capsule,delayed release(DR/EC) 20 mg PO DAILY RF: 0 mirtazapine 30 mg tablet 30 mg PO DAILY RF: 0 tamsulosin 0.4 mg capsule 0.4 mg PO DAILY RF: 0 albuterol sulfate 2.5 mg /3 mL (0.083 %) solution for nebulization 2.5 mg inhalation Q4H PRN (Reason: shortness of breath) RF: 0 citalopram 10 mg tablet 10 mg PO DAILY RF: 0 cetirizine 5 mg tablet 5 mg PO DAILY RF: 0 gabapentin 100 mg capsule 100 mg PO DAILY RF: 0 ipratropium-albuterol 0.5 mg-3 mg(2.5 mg base)/3 mL solution for nebulization 3 ml inhalation QID PRN (Reason: laxative) RF: 0 Basaglar KwikPen U-100 Insulin 100 unit/mL (3 mL) insulin pen 20 unit SUBCUT QAM RF: 0 ferrous sulfate 325 mg (65 mg iron) tablet 325 mg PO BID RF: 0 lorazepam 1 mg tablet 1 mg PO BID PRN (Reason: Anxiety) RF: 0 hydrocodone-acetaminophen 5-325 mg tablet 1 tab PO Q8H PRN (Reason: Moderate Pain (Scale Score 5-6)) RF: 0 senna 8.6 mg Tablet 8.6 mg PO BID PRN (Reason: Laxative Effect) RF: 0 Miralax 17 gram Powder In Packet 17 g PO DAILY PRN (Reason: Constipation) RF: 0 Mapap Arthritis Pain 650 mg Tablet Extended Release 650 mg PO Q12H RF: 0 bisacodyl 10 mg Suppository 10 mg [place] DAILY PRN (Reason: Constipation) RF: 0 Enema Disposable 19-7 gram/118 mL Enema 118 ml [place] PRN RF: 0 nicotine 14 mg/24 hr Patch 24 Hour 1 patch TRANSDERMAL DAILY PRN (Reason: Nicotine Cravings) RF: 0 Trelegy Ellipta 100-62.5-25 mcg Blister With Device 1 inh INHALATION DAILY RF: 0 prednisone 10 mg tablets,dose pack See Rx Instructions .ROUTE .COMPLEX Qty: 21 RF: 0 Discharge Orders: Discharge ED (Routine); Ordered 09/15/21 Ordered By: Phill Vagras Discharge Diet: Regular Discharge Activity: Increase activity as tolerated Patient Instructions: COPD (Chronic Obstructive Pulmonary Disease) (DC), Pneumonia (ED) Activity Restrictions/Additional Instructions: Follow-up with medical provider as directed in 3 to 5 days for reevaluation. Take medications as prescribed. Continue wearing your 2 L of oxygen continuously. Use your inhalers as previously prescribed. Return to the ER or your medical provider if condition worsens. Please read and understand discharge instructions. Thank you for choosing [facility] for your healthcare needs today. Please realize this is an emergency room and that we are providing you with a medical screening exam and this may not be complete and all inclusive of all the testing and or work up that you may need to determine your ailment or severity of your illness. It is very important that you follow up as instructed or that you return to the Emergency Department should you have concerns or if your condition changes or worsens in any way. Coding Level of Care Code ED Filter Press Pumper for Naresh Pepper Exam Comprehensive
[2021-09-14 22:00] VITALS: BP 123/71; PULSE 67; RESP 24; O2SAT 92
[2021-09-14 22:01] LABS: Basophils # 0.1 10^3/uL (0.0-0.1); Basophils % 0.5 %; Eosinophils # 0.6 10^3/uL (0.0-0.8); Eosinophils % 3.9 %; Hemoglobin 11.9 g/dL (11.7-16.6); Lymphocytes # 2.7 10^3/uL (0.8-4.8); Lymphocytes % 17.2 %; Mean Corpuscular HGB Conc 30.5 g/dL (30.0-36.0); Mean Corpuscular Hemoglobin 24.8 pg (28.0-34.0); Mean Corpuscular Volume 81.4 fl (80-94); Mean Platelet Volume 9.2 fL (7.4-10.4); Monocytes # 1.4 10^3/uL (0.2-0.9); Monocytes % 9.1 %; Neutrophils # 10.56 10^3/uL (1.8-7.7); Neutrophils % 68.3 %; Nucleated Red Blood Cells % 0 %; Platelet Count 402 10^3/cmm (130-400); Red Blood Count 4.79 10^6/uL (4.1-5.3); Red Cell Distribution Width 15.3 % (12.1-15.1); White Blood Count 15.5 10^3/uL (4.0-10.0)
[2021-09-14] MEDS: ipratropium-albuterol 3 mL Neb INHALATION (22:16)
[2021-09-14 22:22] LABS: Troponin(5th) Baseline 46 ng/L (0-15)
[2021-09-14 22:30] LABS: Alanine Aminotransferase 12 U/L (0-41); Albumin Level 3.5 g/dL (3.5-5.2); Alkaline Phosphatase 110 IU/L (40-130); Anion Gap 14.7 (5-19); Aspartate Amino Transferase 9 U/L (0-40); Blood Urea Nitrogen 20 mg/dL (8-23); Calcium 8.4 mg/dL (8.5-10.5); Carbon Dioxide 29 mmol/L (22-29); Chloride 98 mmol/L (98-107); Globulin 3.9 g/dL (1.3-4.6); Glomerular Filtration Rate 43.7 mL/min (90-130); Glucose 180 mg/dL (65-115); NT Pro B Type Natriuretic Pept 564 pg/mL (0-125); Osmolality Calculated 291 mOsm/kg (285-295); Potassium 4.7 mmol/L (3.5-5.1); Sodium 137 mmol/L (136-145); Total Bilirubin 0.2 mg/dL (0.15-1.2); Total Protein 7.4 g/dL (6.6-8.7)
[2021-09-14 23:03] VITALS: BP 124/66; PULSE 68; RESP 22; O2SAT 92
[2021-09-14] MEDS: cefTRIAXone 2,000 MG in sodium chloride 0.9% (plus) 50 ML 100 MG IV (23:12)
--- NOTE | 2021-09-14 23:31 | ECG_ITS ---
[facility] Test Date: 2021-09-14 Pat Name: Marlo Gleason Department: Room: Gender: Male Director Of Career Services: : 1955 Requested By: Phill Vargas Order Number: [id number] Joy MD: Tino Martell M.D. Measurements Intervals [place] Rate: 65 P: 51 DC: 204 QRS: 80 QRSD: 101 T: 51 QT: 392 QTc: 410 Interpretive Statements SINUS RHYTHM Compared to ECG 09/14/2021 21:44:11 No significant changes Electronically Signed On 09-16-2021 0:09:00 EXAMINATION SUPERVISOR by Tino Martell M.D. [id number]
[2021-09-15 00:05] LABS: Troponin 5 2HR 44.02 ng/L (0-15)
[2021-09-15 00:11] LABS: Troponin 5 2HR Delta -1.98 ABS# (0-10)
[2021-09-15 02:46] VITALS: BP 126/78; PULSE 72; RESP 20; O2SAT 95
== END 2021-09-15 02:53 | disposition home or self-care (01) ==
PROVIDERS: Emergency Provider Physician Assistant
DX: J18.9 Pneumonia, unspecified organism (principal); Z79.82 Long term (current) use of aspirin; I25.10 Atherosclerotic heart disease of native coronary artery without angina pectoris; J44.9 Chronic obstructive pulmonary disease, unspecified; E11.9 Type 2 diabetes mellitus without complications; I10 Essential (primary) hypertension; Z99.81 Dependence on supplemental oxygen; F17.210 Nicotine dependence, cigarettes, uncomplicated
CPT/HCPCS: 71045; 80053; 83880; 84484; 85025; 87040; 93005; 94640; 96365; 96375; 99284; J0696; J2930

== ENCOUNTER 2022-04-03 22:55 | Inpatient (IN) | payer MEDICARE, MEDICAID, SELFPAY ==
[2022-04-03 22:58] VITALS: BP 129/58; PULSE 76; RESP 18; TEMP 36.7; O2SAT 97; BMI 27.8
--- NOTE | 2022-04-03 23:29 | XRR_ITS ---
PROCEDURE INFORMATION: Exam: XR Chest Exam date and time: 04/03/2022 11:43 PM Age: 66 years old Clinical indication: Cough and shortness of breath; Additional info: SOB TECHNIQUE: Imaging protocol: Radiologic exam of the chest. Views: 1 view. COMPARISON: 1. CR (CHEST, ) 09/14/2021 9:47 PM 2. CR (CHEST, ) 05/07/2021 9:45 PM 3. CR Chest 1 [place] [id number] 10/12/2017 11:41 AM FINDINGS: Lungs: Chronic bilateral lower lung zone and bibasilar interstitial fibrosis and scarring with parenchymal distortion and volume loss. Stable small left upper lung zone calcified granuloma. Pleural spaces: Chronic bilateral pleural thickening and costophrenic angle blunting. Heart/Mediastinum: Heart size is stable. Bones/joints: No acute osseous abnormality. XR/XR chest 1V portable [id number] IMPRESSION: 1. Chronic bilateral lower lung zone and bibasilar interstitial fibrosis and scarring with parenchymal distortion and volume loss. 2. Chronic bilateral pleural thickening/scarring versus small pleural effusions.
[2022-04-03 23:48] LABS: Basophils % 0.2 %; Eosinophils # 0.1 10^3/uL (0.0-0.8); Hematocrit 32.6 % (42.0-52.0); Hemoglobin 9.7 g/dL (11.7-16.6); Lymphocytes # 0.9 10^3/uL (0.8-4.8); Lymphocytes % 14.6 %; Mean Corpuscular HGB Conc 29.8 g/dL (30.0-36.0); Mean Corpuscular Hemoglobin 23.3 pg (28.0-34.0); Mean Corpuscular Volume 78.4 fl (80-94); Mean Platelet Volume 9.1 fL (7.4-10.4); Monocytes # 0.7 10^3/uL (0.2-0.9); Monocytes % 12.7 %; Neutrophils % 70.6 %; Nucleated Red Blood Cells % 0 %; Platelet Count 272 10^3/cmm (130-400); Red Blood Count 4.16 10^6/uL (4.1-5.3); Red Cell Distribution Width 16.1 % (12.1-15.1); White Blood Count 5.8 10^3/uL (4.0-10.0)
[2022-04-04] VITALS (77 sets, daily range): BP systolic 84–161; BP diastolic 42–100; PULSE 62–113; RESP 18–44; TEMP 36.6–36.9; O2SAT 81–98; BMI 29.0
[2022-04-04 00:02] LABS: D Dimer 0.78 ug/mIFEU (0-0.59)
--- NOTE | 2022-04-04 00:04 | ED_ITS ---
HPI - SOB/Dyspnea General: Chief Complaint: Shortness of Breath/Dyspnea Stated Complaint: COVID Time Seen by Provider: 04/03/22 23:10 History of Present Illness: HPI Narrative: 66-year-old male patient presenting from a long term environment. He says that he wears oxygen, usually 3 L during the day and three-point 5 at night. He was hypoxic tonight. The long term had him on 5 L nonrebreather with saturations in the low 80s. He was placed on 15 L nonrebreather by EMS, and presents with a saturation of 98%. He states that he feels better. He has known COVID, but there is some dispute whether he was diagnosed on 03/26, or 03/31. He denies significant fever. He says that his cough is productive of some white sputum. He denies overt chest pain. MD elicited complaint: shortness of breath and cough Pertinent past history: COPD Context: recent illness Timing: constant Severity: similar to previous episodes Exacerbating factors: lying flat and exertion Relieving factors: oxygen Known history of: COPD Associated symptoms: Reports chest congestion and cough; Deny abdominal pain, chest pain, diaphoresis, fever(s) or vomiting Treatment prior to arrival: oxygen Review of Systems Const: Denies: fever(s) or diaphoresis ENMT: Denies: throat pain Card: Denies: chest pain Resp: Reports: dyspnea, productive cough and chest congestion GI: Denies: abdominal pain or vomiting PFSH ED PFSH: Medical History Anxiety disorder CAD (coronary artery disease) CKD (chronic kidney disease) COPD (chronic obstructive pulmonary disease) Diabetes mellitus GERD (gastroesophageal reflux disease) Gout Hypertension On home oxygen therapy Usually on 2 L by nasal cannula Positive DENY (antinuclear antibody) Prostatic hypertrophy PVD (peripheral vascular disease) Skin cancer Specific type unknown Tobacco use Surgical History History of cholecystectomy History of coronary artery stent placement X2 History of skin surgery Left neck for skin cancer Presence of coronary angioplasty implant and graft Family History Mother Cancer Father CAD (coronary artery disease) Social History Smoking and tobacco status: current every day smoker cigarettes Years cigarettes smoked: 60 Quit status (tobacco): not considering quitting Second hand smoke exposure: Yes Alcohol intake: former Caregiver/support person: Yes Lives independently: No Housing: Assisted Marital status: / service: No Current occupational status: disabled Pets and animals: Yes Current gender identity: Male Physical Exam Const: GENERAL APPEARANCE: cooperative, ill appearing (mildly) and frail appearing HENMT: COMMON NORMALS: normocephalic, atraumatic and Normal external nose present HEAD & SCALP: normocephalic and atraumatic FACE & SINUS: normal facial exam and face symmetric NOSE: Normal external nose present Eye: COMMON NORMALS: Equal, round and reactive pupils present and EOMs intact bilaterally PUPIL: Yes Equal, round and reactive pupils present Neck/C-Spine: GENERAL: Yes trachea midline Chest: CHEST: Yes Symmetrical chest wall rise Resp: EFFORT & INSPECTION: Yes tachypneic, No labored and No Actively coughing AUSCULTATION: rales Cardio: COMMON NORMALS: regular rate and regular rhythm RATE: regular rate RHYTHM: regular rhythm GI: COMMON NORMALS: Normal to inspection, nondistended, normoactive bowel sounds present and Soft to palpation PALPATION: Yes Soft to palpation Extremity: COMMON NORMALS: no pedal edema Neuro: SUJATHA COMA SCALE: document GCS findings [place] coma scale eye opening: Spontaneous Sujatha coma scale verbal response: Orientated Sujatha coma scale motor response: Obey commands [place] coma scale total score: 15 Course Vital Signs: Vital signs: Vital Signs Temperature 98.0 F 04/04/22 07:30 Pulse Rate 72 04/04/22 15:45 Respiratory Rate 20 H 04/04/22 15:30 Blood Pressure 102/59 04/04/22 15:30 Pulse Oximetry 95 04/04/22 15:45 MDM - SOB/Dyspnea Medical Decision Making Chest x-ray reveals bilateral lower lung field patchy opacities consistent with likely pneumonia. Hemoglobin 9.7. He has known covid. Increased O2 requirement. he is given abx after blood cultures here. sepsis bolus not fully given due to covid status and lack of significant hypotension. he'll be admitted. Lab Data : 04/03/22 23:35 04/04/22 05:45 Labs/Radiology: Radiology Impressions Chest X-Ray 04/03/22 23:29 IMPRESSION: 1. Chronic bilateral lower lung zone and bibasilar interstitial fibrosis and scarring with parenchymal distortion and volume loss. 2. Chronic bilateral pleural thickening/scarring versus small pleural effusions. Laboratory Results WBC 5.8 10^3/uL (4.0-10.0) 04/03/22 23:35 RBC 4.16 10^6/uL (4.1-5.3) 04/03/22 23:35 Hgb 9.7 g/dL (11.7-16.6) L 04/03/22 23:35 Hct 32.6 % (42.0-52.0) L 04/03/22 23:35 MCV 78.4 fl (80-94) L 04/03/22 23:35 MCH 23.3 pg (28.0-34.0) L 04/03/22 23:35 MCHC 29.8 g/dL (30.0-36.0) L 04/03/22 23:35 RDW 16.1 % (12.1-15.1) H 04/03/22 23:35 Plt Count 272 10^3/cmm (130-400) 04/03/22 23:35 MPV 9.1 fL (7.4-10.4) 04/03/22 23:35 Neut % (Auto) 70.6 % 04/03/22 23:35 Lymph % (Auto) 14.6 % 04/03/22 23:35 [place] % (Auto) 12.7 % 04/03/22 23:35 Eos % (Auto) 1.0 % 04/03/22 23:35 Baso % (Auto) 0.2 % 04/03/22 23:35 Neut # (Auto) 4.10 10^3/uL (1.8-7.7) 04/03/22 23:35 Lymph # (Auto) 0.9 10^3/uL (0.8-4.8) 04/03/22 23:35 [place] # (Auto) 0.7 10^3/uL (0.2-0.9) 04/03/22 23:35 Eos # (Auto) 0.1 10^3/uL (0.0-0.8) 04/03/22 23:35 Baso # (Auto) 0.0 10^3/uL (0.0-0.1) 04/03/22 23:35 Nucleated RBC % (auto) 0 % 04/03/22 23:35 Nucleated RBCs # 0.0 /100WBC 04/03/22 23:35 D-Dimer 0.78 ug/mIFEU (0-0.59) H 04/03/22 23:35 Specimen Type Arterial 04/03/22 00:18 Sample Site Radial, right 04/03/22 00:18 ABG pH 7.32 (7.35-7.45) L 04/03/22 00:18 ABG pCO2 60.2 mmHg (35-45) H* 04/03/22 00:18 ABG pO2 51.2 mmHg (80.0-100.0) L 04/03/22 00:18 ABG HCO3 30.8 mmol/L (22-26) H 04/03/22 00:18 ABG Base Excess 3.2 mmol/L (-2.0-2.0) H 04/03/22 00:18 Baldo Test Pos 04/03/22 00:18 Hematocrit 39.8 % (42-52) L 04/03/22 00:18 Hgb O2 Saturation 83.4 % (95-100) L 04/03/22 00:18 Carboxyhemoglobin 1.0 %THgb (0.4-20.1) 04/03/22 00:18 Methemoglobin 0.8 % (0.4-1.5) 04/03/22 00:18 Total Hemoglobin 13.0 g/dL (14-18) L 04/03/22 00:18 FiO2 21.0 % 04/03/22 00:18 Slipcover Cutter ID [place] 04/03/22 00:18 Sodium 132 mmol/L (136-145) L 04/03/22 23:35 Potassium 3.7 mmol/L (3.5-5.1) 04/03/22 23:35 Chloride 99 mmol/L (98-107) 04/03/22 23:35 Carbon Dioxide 26 mmol/L (22-29) 04/03/22 23:35 Anion Gap 10.7 (5-19) 04/03/22 23:35 BUN 27 mg/dL (8-23) H 04/03/22 23:35 Creatinine 1.3 mg/dL (0.7-1.2) H 04/03/22 23:35 GFR Calculation 55.6 mL/min (90-130) L 04/03/22 23:35 Glucose 86 mg/dL (65-115) 04/03/22 23:35 Calculated Osmolality 278 mOsm/kg (285-295) L 04/03/22 23:35 Lactic Acid 1.2 mmol/L (0.5-2.2) 04/03/22 23:35 Calcium 6.6 mg/dL (8.5-10.5) L 04/03/22 23:35 Total Bilirubin 0.3 mg/dL (0.15-1.2) 04/03/22 23:35 AST 23 U/L (0-40) 04/03/22 23:35 ALT 13 U/L (0-41) 04/03/22 23:35 Alkaline Phosphatase 72 IU/L (40-130) 04/03/22 23:35 C-Reactive Protein 143.7 mg/L (0.0-4.9) H 04/03/22 23:35 NT-Pro-B Natriuret Pep 660 pg/mL (0-125) H 04/03/22 23:35 Total Protein 6.0 g/dL (6.6-8.7) L 04/03/22 23:35 Albumin 2.3 g/dL (3.5-5.2) L 04/03/22 23:35 Globulin 3.7 g/dL (1.3-4.6) 04/03/22 23:35 Procalcitonin 0.32 ng/mL (0-0.5) 04/03/22 23:35 Discharge Plan Discharge Patient Disposition: Admitted As Inpatient Admit Provider: Antonia Naranjo Clinical Impression: Pneumonia, Acute on chronic respiratory failure with hypoxia and hypercapnia Condition: Stable Coding Level of Care Code ED Retail Loan Officer for Chg Fwd Exam Comprehensive
[2022-04-04 00:06] LABS: Lactic Sepsis W/Reflex 1.2 mmol/L (0.5-2.2)
[2022-04-04 00:27] LABS: NT Pro B Type Natriuretic Pept 660 pg/mL (0-125); Procalcitonin 0.32 ng/mL (0-0.5)
[2022-04-04 00:29] LABS: ABG PH Result 7.32 (7.35-7.45); Arterial Blood Gas Hematocrit 39.8 % (42-52); Base Excess ABG 3.2 mmol/L (-2.0-2.0); Blood Gas Allen Test Pos; Blood Gas Operator Identificat WALCI; Blood Gas Sample Site Radial, right; Blood Gas Sample Type Arterial; HCO3 ABG 30.8 mmol/L (22-26); HGB O2 Sat 83.4 % (95-100); Methemoglobin 0.8 % (0.4-1.5); PO2 ABG 51.2 mmHg (80.0-100.0)
[2022-04-04 00:30] LABS: ABG PCO2 60.2 mmHg (35-45)
[2022-04-04 00:38] LABS: Alanine Aminotransferase 13 U/L (0-41); Albumin Level 2.3 g/dL (3.5-5.2); Alkaline Phosphatase 72 IU/L (40-130); Anion Gap 10.7 (5-19); Aspartate Amino Transferase 23 U/L (0-40); Blood Urea Nitrogen 27 mg/dL (8-23); C Reactive Protein 143.7 mg/L (0.0-4.9); Calcium 6.6 mg/dL (8.5-10.5); Carbon Dioxide 26 mmol/L (22-29); Chloride 99 mmol/L (98-107); Globulin 3.7 g/dL (1.3-4.6); Glomerular Filtration Rate 55.6 mL/min (90-130); Glucose 86 mg/dL (65-115); Osmolality Calculated 278 mOsm/kg (285-295); Potassium 3.7 mmol/L (3.5-5.1); Sodium 132 mmol/L (136-145); Total Bilirubin 0.3 mg/dL (0.15-1.2)
[2022-04-04] MEDS: ipratropium-albuterol 3 mL Neb INHALATION ×5 (00:45→20:45)
[2022-04-04] MEDS: haloperidol inj 5 mg/mL INJ 1 mL 2 MG IVP (01:25)
[2022-04-04] MEDS: piperacillin-tazobactam 4.5 GM in sodium chloride 0.9% (plus) 50 ML IV (01:26)
--- NOTE | 2022-04-04 01:50 | P.HP_ITS ---
Providers/Chief Complaint Admitting Physician: Antonia Naranjo MD Chief Complaint: COVID History of Present Illness Marlo Gleason is a 66 year old male, [place] resident, h/o COPD typically on 3 to 3.5 L supplemental oxygen at the half-way brought in today with chief complaints of respiratory distress. Per discussion with the half-way staff, patient developed fever of 100 Fahrenheit 4 to 5 days ago and tested positive for COVID-19 on March 31, 2022. He continued to have worsening cough and dyspnea over the next 4 days, today he was noted to have oxygen saturation of 70 to 80% on nonrebreather 5 L/min. His oxygen requirements continued to climb up quickly and he was sent into the emergency room. ABG upon arrival showed hypoxic hypercapnic respiratory failure with pH 7.32/60.2/51.2/30.8. He is noted to be tachypneic with respiratory rate 35 and respiratory distress with intercostal retractions. He was additionally noted to be lethargic and confused. He has a past medical history significant for COPD, however it appears he may have a diagnosis of interstitial lung disease as well. DENY work-up from April 2021 was positive for cytoplasmic antinuclear antibody titer of 1 and 40 and previous CAT scans dating back to additionally show bilateral mixed airspace and interstitial opacities and mediastinal lymphadenopathy which has been chronic. Prior barium swallow evaluation has shown transient episodes of laryngeal penetration, no ludy aspiration. History is obtained by talking to the half-way staff as patient is currently on BiPAP and some respiratory distress and it is difficult for him to talk. Review of Systems General: Reports: ROS unobtainable due to medical condition Endo: Denies: polyuria, polydipsia, tired all the time, cold intolerance or hot flashes Medications/Allergies Home Medications Medication Instructions Recorded Confirmed Last Taken Type albuterol sulfate 2.5 mg INHALATION Q4H PRN 01/21/21 05/08/21 Unknown History amlodipine 2.5 mg tablet 2.5 mg PO DAILY 01/21/21 05/08/21 Unknown History aspirin 81 mg tablet,delayed 81 mg PO DAILY 01/21/21 05/08/21 Unknown History release (Adult Low Dose Aspirin) atorvastatin 40 mg tablet 40 mg PO DAILY 01/21/21 05/08/21 Unknown History buspirone 10 mg tablet 10 mg PO TID 01/21/21 05/08/21 Unknown History cetirizine 5 mg tablet 5 mg PO DAILY 01/21/21 05/08/21 Unknown History citalopram 10 mg tablet 10 mg PO DAILY 01/21/21 05/08/21 Unknown History ferrous sulfate 325 mg (65 mg 325 mg PO BID 01/21/21 05/08/21 Unknown History iron) tablet gabapentin 100 mg capsule 100 mg PO DAILY 01/21/21 05/08/21 Unknown History guaifenesin 1,200 mg tablet, 1,200 mg PO BID 01/21/21 05/08/21 Unknown History extended release 12 hr (Mucinex) hydrocodone 5 mg-acetaminophen 325 1 tab PO Q8H PRN 01/21/21 05/08/21 Unknown History mg tablet insulin glargine 100 unit/mL (3 20 unit SUBCUT QAM ml 01/21/21 05/08/21 Unknown History mL) subcutaneous pen (Basaglar KwikPen U-100 Insulin) ipratropium 0.5 mg-albuterol 3 mg 3 ml INHALATION QID PRN 01/21/21 05/08/21 Unknown History (2.5 mg base)/3 mL nebulization soln lorazepam 1 mg tablet 1 mg PO BID PRN 01/21/21 04/04/22 Unknown History metoprolol tartrate 25 mg tablet 25 mg PO BID 01/21/21 05/08/21 Unknown History mirtazapine 30 mg tablet 30 mg PO DAILY 01/21/21 05/08/21 Unknown History nitroglycerin 0.4 mg sublingual 0.4 mg SUBLINGUAL Q5M PRN 01/21/21 05/08/21 Unknown History tablet omeprazole 20 mg capsule,delayed 20 mg PO DAILY 01/21/21 04/04/22 Unknown History release tamsulosin 0.4 mg capsule 0.4 mg PO DAILY 01/21/21 04/04/22 Unknown History venlafaxine 75 mg capsule,extended 75 mg PO DAILY 01/21/21 04/04/22 Unknown History release 24 hr acetaminophen 650 mg 650 mg PO Q12H 05/08/21 05/08/21 Unknown History tablet,extended release (Mapap Arthritis Pain) bisacodyl 10 mg rectal suppository 10 mg MA DAILY PRN 05/08/21 05/08/21 Unknown History fluticasone fur. 100 mcg-umeclid 1 inh INHALATION DAILY 05/08/21 04/04/22 Unknown History 62.5 mcg-vilant 25 mcg inhalat.powder (Trelegy Ellipta) nicotine 14 mg/24 hr daily 1 patch TRANSDERMAL DAILY PRN 05/08/21 05/08/21 Un known History transdermal patch polyethylene glycol 3350 17 gram 17 g PO DAILY PRN 05/08/21 05/08/21 Unknown History oral powder packet (Miralax) sennosides 8.6 mg tablet (senna) 8.6 mg PO BID PRN 05/08/21 05/08/21 Unknown History sodium phosphates 19 gram-7 118 ml MA PRN 05/08/21 05/08/21 Unknown History gram/118 mL enema (Enema Disposable) prednisone 10 mg tablets in a dose See Rx Instructions .ROUTE 05/14/21 Unknown Rx pack .COMPLEX #21 ea methylprednisolone 4 mg tablets in See Rx Instructions .ROUTE 09/15/21 Unknown Rx a dose pack .COMPLEX #21 ea Allergies Allergy/AdvReac Type Severity Reaction Status Date / Time No Known Allergies Allergy Verified 04/02/21 09:11 PFSH Acute PFSH: Medical History Anxiety disorder CAD (coronary artery disease) CKD (chronic kidney disease) COPD (chronic obstructive pulmonary disease) Diabetes mellitus GERD (gastroesophageal reflux disease) Gout Hypertension On home oxygen therapy Usually on 2 L by nasal cannula Positive DENY (antinuclear antibody) Prostatic hypertrophy PVD (peripheral vascular disease) Skin cancer Specific type unknown Tobacco use Surgical History History of cholecystectomy History of coronary artery stent placement X2 History of skin surgery Left neck for skin cancer Presence of coronary angioplasty implant and graft Family History Mother Cancer Father CAD (coronary artery disease) Social History Smoking and tobacco status: current every day smoker cigarettes Years cigarettes smoked: 60 Quit status (tobacco): not considering quitting Second hand smoke exposure: Yes Alcohol intake: former Caregiver/support person: Yes Lives independently: No Housing: Retirement Marital status: / service: No Current occupational status: disabled Pets and animals: Yes Current gender identity: Male Vitals/I&O/Wt Last Vital Signs Temp 98.1 F 04/03/22 22:58 Pulse 82 04/04/22 00:47 Resp 35 H 04/04/22 00:43 BP 129/58 04/03/22 22:58 Pulse Ox 93 04/04/22 00:46 Weight last 48 hrs Weight 92.986 kg Physical Exam Narrative: General: No acute respiratory distress, tachypneic, uncomfortable, placed on BiPAP currently. HEENT: PERRLA, pupils bilaterally equal and reactive, pallors not present Chest: Coarse breath sounds to auscultation bilaterally CVS: S1-S2 regular, no murmurs, no tachycardia, no gallops, no rubs Abdomen: Soft, nontender, no organomegaly, bowel sounds present Neuro: No focal deficits, no facial deformity,,moving all extremities in bed Data : 04/03/22 23:35 04/04/22 05:45 Other Labs: Radiology Impressions Chest X-Ray 04/03/22 23:29 IMPRESSION: 1. Chronic bilateral lower lung zone and bibasilar interstitial fibrosis and scarring with parenchymal distortion and volume loss. 2. Chronic bilateral pleural thickening/scarring versus small pleural effusions. Laboratory Results WBC 5.8 10^3/uL (4.0-10.0) 04/03/22 23:35 RBC 4.16 10^6/uL (4.1-5.3) 04/03/22 23:35 Hgb 9.7 g/dL (11.7-16.6) L 04/03/22 23:35 Hct 32.6 % (42.0-52.0) L 04/03/22 23:35 MCV 78.4 fl (80-94) L 04/03/22 23:35 MCH 23.3 pg (28.0-34.0) L 04/03/22 23:35 MCHC 29.8 g/dL (30.0-36.0) L 04/03/22 23:35 RDW 16.1 % (12.1-15.1) H 04/03/22 23:35 Plt Count 272 10^3/cmm (130-400) 04/03/22 23:35 MPV 9.1 fL (7.4-10.4) 04/03/22 23:35 Neut % (Auto) 70.6 % 04/03/22 23:35 Lymph % (Auto) 14.6 % 04/03/22 23:35 Rankin % (Auto) 12.7 % 04/03/22 23:35 Eos % (Auto) 1.0 % 04/03/22 23:35 Baso % (Auto) 0.2 % 04/03/22 23:35 Neut # (Auto) 4.10 10^3/uL (1.8-7.7) 04/03/22 23:35 Lymph # (Auto) 0.9 10^3/uL (0.8-4.8) 04/03/22 23:35 Rankin # (Auto) 0.7 10^3/uL (0.2-0.9) 04/03/22 23:35 Eos # (Auto) 0.1 10^3/uL (0.0-0.8) 04/03/22 23:35 Baso # (Auto) 0.0 10^3/uL (0.0-0.1) 04/03/22 23:35 Nucleated RBC % (auto) 0 % 04/03/22 23:35 Nucleated RBCs # 0.0 /100WBC 04/03/22 23:35 D-Dimer 0.78 ug/mIFEU (0-0.59) H 04/03/22 23:35 Specimen Type Arterial 04/03/22 00:18 Sample Site Radial, right 04/03/22 00:18 ABG pH 7.32 (7.35-7.45) L 04/03/22 00:18 ABG pCO2 60.2 mmHg (35-45) H* 04/03/22 00:18 ABG pO2 51.2 mmHg (80.0-100.0) L 04/03/22 00:18 ABG HCO3 30.8 mmol/L (22-26) H 04/03/22 00:18 ABG Base Excess 3.2 mmol/L (-2.0-2.0) H 04/03/22 00:18 Baldo Test Pos 04/03/22 00:18 Hematocrit 39.8 % (42-52) L 04/03/22 00:18 Hgb O2 Saturation 83.4 % (95-100) L 04/03/22 00:18 Carboxyhemoglobin 1.0 %THgb (0.4-20.1) 04/03/22 00:18 Methemoglobin 0.8 % (0.4-1.5) 04/03/22 00:18 Total Hemoglobin 13.0 g/dL (14-18) L 04/03/22 00:18 FiO2 21.0 % 04/03/22 00:18 Ornamental Machine Operator ID [place] 04/03/22 00:18 Sodium 132 mmol/L (136-145) L 04/03/22 23:35 Potassium 3.7 mmol/L (3.5-5.1) 04/03/22 23:35 Chloride 99 mmol/L (98-107) 04/03/22 23:35 Carbon Dioxide 26 mmol/L (22-29) 04/03/22 23:35 Anion Gap 10.7 (5-19) 04/03/22 23:35 BUN 27 mg/dL (8-23) H 04/03/22 23:35 Creatinine 1.3 mg/dL (0.7-1.2) H 04/03/22 23:35 GFR Calculation 55.6 mL/min (90-130) L 04/03/22 23:35 Glucose 86 mg/dL (65-115) 04/03/22 23:35 Calculated Osmolality 278 mOsm/kg (285-295) L 04/03/22 23:35 Lactic Acid 1.2 mmol/L (0.5-2.2) 04/03/22 23:35 Calcium 6.6 mg/dL (8.5-10.5) L 04/03/22 23:35 Total Bilirubin 0.3 mg/dL (0.15-1.2) 04/03/22 23:35 AST 23 U/L (0-40) 04/03/22 23:35 ALT 13 U/L (0-41) 04/03/22 23:35 Alkaline Phosphatase 72 IU/L (40-130) 04/03/22 23:35 C-Reactive Protein 143.7 mg/L (0.0-4.9) H 04/03/22 23:35 NT-Pro-B Natriuret Pep 660 pg/mL (0-125) H 04/03/22 23:35 Total Protein 6.0 g/dL (6.6-8.7) L 04/03/22 23:35 Albumin 2.3 g/dL (3.5-5.2) L 04/03/22 23:35 Globulin 3.7 g/dL (1.3-4.6) 04/03/22 23:35 Procalcitonin 0.32 ng/mL (0-0.5) 04/03/22 23:35 Micro: Microbiology 04/04/22 00:05 Blood Culture - Preliminary Blood SPECIMEN COLLECTED 04/04/22 00:00 Blood Culture - Preliminary Blood SPECIMEN COLLECTED ABG Interpretation 1: 04/03/22 00:18 ABG pH 7.32 L ABG pCO2 60.2 H* ABG pO2 51.2 L ABG HCO3 30.8 H ABG Base Excess 3.2 H My Interpretation: Acute hypoxic hypercapnic respiratory failure. A&P Assessment and plan (1) Acute respiratory failure due to COVID-19: Admit to ICU in view of acute respiratory failure. Patient with significant respiratory distress, tachypneic with respiratory rate 35-40, intercostal retractions, new BiPAP requirement, evidence of acute hypoxic hypercapnic respiratory failure on ABG. Remdisivir 200mg iv x 1 followed by 100mg iv daily Methylprednisolone 60 mg IV every 8h duoneb q6h, budesonide q12h schLevofloxacin 750mg daily Flutter valve/spirometer at bedside when off Bipap trend inflammatory markers including CRP, D dimer D-dimer noted to be mildly elevated, however age appropriate at 0.79. Chest x-ray shows chronic bilateral lower lung zone and bibasilar interstitial fibrosis and scarring with parenchymal distortion, chronic bilateral pleural thickening versus small pleural effusions. BiPAP ventilation for now, repeat ABG in an hour. Status: Acute (2) Acute on chronic respiratory failure with hypoxia and hypercapnia: Status: Acute (3) COPD exacerbation: Status: Acute Plan # DM: insulin sliding scale dvt ppx: Lovenox 40mg s/c GI ppx: Protonix 40mg po daily Full code, CODE STATUS confirmed with daughter Laya. Attestations Medical Necessity Statement*: Greater than 2 midnights admission anticipated for above defined care. Critical Care Time: The high probability of a clinically significant, sudden or life threatening deterioration of the patient's [respiratory] system(s) required my full and direct attention, intervention and personal management. The critical care time is as shown. 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
--- NOTE | 2022-04-04 02:17 | PC.NURSE ---
0115- patient found to have soiled linens. patients linen changed and patient changed into gown. patient pulled off Bipap machine. patient put back on bipap machine with no difficulties. patient pulled up in bed. New IV started with no difficulties. 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
--- NOTE | 2022-04-04 02:18 | PC.NURSE ---
patient resting comfortably in bed at this time. patient in no obivous distress.
[2022-04-04 03:47] LABS: ABG PH Result 7.29 (7.35-7.45); Arterial Blood Gas Hematocrit 37.1 % (42-52); Blood Gas Allen Test Pos; Blood Gas Operator Identificat WALCI; Blood Gas Sample Site Radial, left; Blood Gas Sample Type Arterial; HCO3 ABG 31.1 mmol/L (22-26); Oxygen Device BIPAP
[2022-04-04 04:02] LABS: ABG PCO2 64.3 mmHg (35-45)
[2022-04-04] MEDS: remdesivir 200 MG in sodium chloride 0.9% (100 ml) 100 ML 100 MG IV (04:17)
[2022-04-04] MEDS: enoxaparin 40 mg/0.4 mL Syringe SUBCUT (04:34)
[2022-04-04 06:36] LABS: Alanine Aminotransferase 16 U/L (0-41); Albumin Level 3.1 g/dL (3.5-5.2); Alkaline Phosphatase 101 IU/L (40-130); Anion Gap 14.7 (5-19); Aspartate Amino Transferase 29 U/L (0-40); Blood Urea Nitrogen 34 mg/dL (8-23); Calcium 8.5 mg/dL (8.5-10.5); Carbon Dioxide 31 mmol/L (22-29); Chloride 92 mmol/L (98-107); Globulin 4.5 g/dL (1.3-4.6); Glomerular Filtration Rate 38.2 mL/min (90-130); Glucose 224 mg/dL (65-115); Osmolality Calculated 289 mOsm/kg (285-295); Potassium 5.7 mmol/L (3.5-5.1); Sodium 132 mmol/L (136-145); Total Bilirubin 0.4 mg/dL (0.15-1.2); Total Protein 7.6 g/dL (6.6-8.7)
[2022-04-04 07:45] LABS: Glucose Point of Care 264 mg/dL (70-110)
[2022-04-04] MEDS: budesonide 0.5 mg/2 mL Neb INHALATION ×2 (07:51→20:45)
[2022-04-04 08:06] LABS: ABG PCO2 59.1 mmHg (35-45); ABG PH Result 7.33 (7.35-7.45); Arterial Blood Gas Hematocrit 36.9 % (42-52); Base Excess ABG 3.9 mmol/L (-2.0-2.0); Blood Gas Allen Test Pos; Blood Gas Operator Identificat MONRO; Blood Gas Sample Site Radial, left; Blood Gas Sample Type Arterial; HCO3 ABG 31.2 mmol/L (22-26); PO2 ABG 86.5 mmHg (80.0-100.0)
[2022-04-04 08:07] LABS: Oxygen Device BIPAP
[2022-04-04] MEDS: metoprolol tartrate 25 mg Tablet PO ×2 (08:40→17:09)
[2022-04-04] MEDS: venlafaxine ER (24HR) 75 mg Capsule PO (08:40)
[2022-04-04] MEDS: tamsulosin 0.4 mg Capsule PO (08:40)
[2022-04-04] MEDS: BuSPIRONE 10 mg Tablet PO ×3 (08:40→20:37)
[2022-04-04] MEDS: mirtazapine 30 mg Tablet PO (08:40)
[2022-04-04] MEDS: gabapentin 100 mg Capsule PO (08:40)
[2022-04-04] MEDS: citalopram 20 mg Tablet 10 MG PO (08:40)
[2022-04-04] MEDS: pantoprazole DR 40 mg Tablet PO (08:40)
[2022-04-04] MEDS: aspirin 81 mg EC Tablet PO (08:40)
[2022-04-04] MEDS: levoFLOXacin 750 mg Tablet PO (08:40)
[2022-04-04] MEDS: atorvastatin 40 mg Tablet PO (08:41)
[2022-04-04] MEDS: insulin lispro 100 unit/1 mL SUBCUT ×3 (08:41→20:37)
[2022-04-04] MEDS: insulin regular-human 10 UNIT in SYRINGE 1 EACH IVP (10:49)
[2022-04-04] MEDS: dextrose 50% syringe 50 mL 25 ML IVP (10:51)
[2022-04-04 11:37] LABS: ABG PCO2 60.1 mmHg (35-45); ABG PH Result 7.34 (7.35-7.45); Arterial Blood Gas Hematocrit 35.6 % (42-52); Blood Gas Allen Test Pos; Blood Gas Operator Identificat MONRO; Blood Gas Sample Site Radial, right; Blood Gas Sample Type Arterial; HCO3 ABG 32.2 mmol/L (22-26); Oxygen Device BIPAP; PO2 ABG 81.6 mmHg (80.0-100.0)
[2022-04-04 11:41] LABS: Glucose Point of Care 272 mg/dL (70-110)
--- NOTE | 2022-04-04 12:29 | PM.MISC ---
Miscellaneous Note Note: This morning patient was examined in the ICU Repeat blood gas showed PCO2 pretty much at same level PCO2 60 We have increased his respiratory rate and increased IPAP I did speak with his daughter, patient is full code, there is no previous diagnosis of pulmonary fibrosis, I did discuss with them that in case he gets intubated chances of coming him off the ventilator are pretty slim For now we are repeating blood gas within 2 hours, will he will stay on BiPAP, I have requested Precedex along BiPAP as well Patient is able to comprehend Does answer my questions appropriately He looks euvolemic S1, S2 Abdomen is soft No signs of edema of legs Bilateral breath sounds with crepitation and rhonchi Assessment and plan Repeat blood gas at 1:00 Continue BiPAP Dysphagia diet once we are able to use high flow and remove BiPAP but he is not ready yet Continue steroids and antibiotics Check CRP procalcitonin Continue remdesivir I will give him Lasix Chronic kidney disease: Creatinine seems to be around baseline, Continue DVT prophylaxis in case of further worsening might change to heparin Precedex and BiPAP use for now With steroids he was sugar will stay higher, I have added Lantus, continue sliding scale Nurse updated
--- NOTE | 2022-04-04 12:39 | USCV_ITS ---
Marlo Gleason Age: 66 Gender: M : 1955 Exam Date: 04/04/2022 13:53 Ordering Phys: Cuca Do MD Technologist: Laci Reynolds [place] [facility] [place] ef BP: 100 / 63 HR: Rhythm: Sinus Technical Quality: Adequate MEASUREMENTS (Male / Female) Normal Values 2D ECHO LV Diastolic Diameter PLAX 3.8 cm 4.2 - 5.9 / 3.9 - 5.3 cm LV Systolic Diameter PLAX 2.7 cm IVS Diastolic Thickness 1.3 cm 0.6 - 1.0 / 0.6 - 0.9 cm IVS Systolic Thickness 1.4 cm LVPW Diastolic Thickness 1.1 cm 0.6 - 1.0 / 0.6 - 0.9 cm LVPW Systolic Thickness 1.3 cm LVOT Diameter 2.1 cm LV Ejection Fraction 2D Teich 62.7 % LA Diameter 2.8 cm Aorta at Sinotubular Diameter 2.3 cm M-MODE Aortic Annulus Diameter 3.9 cm LA Ao Ratio MM 0.8 MV E Point Septal Separation 0.8 cm FINDINGS Left Ventricle Right Ventricle Right Atrium Left Atrium Mitral Valve Aortic Valve Tricuspid Valve Pulmonic Valve Pericardium Aorta IVC CONCLUSIONS There is a limited echocardiogram performed to assess LV systolic function. LV systolic function is normal with EF 55 to 60%. Compared to prior echocardiogram from 2020, no significant change in LV systolic function is seen. Jw Guillory MD (Electronically Signed) Final Date: 05 April 2022 12:55 S
[2022-04-04] MEDS: FUROsemide 10 mg/mL SDV 2mL 20 MG IVP (12:49)
[2022-04-04 13:56] LABS: ABG PCO2 58.6 mmHg (35-45); ABG PH Result 7.36 (7.35-7.45); Blood Gas Allen Test Pos; Blood Gas Sample Type Arterial
[2022-04-04 13:57] LABS: Blood Gas Operator Identificat MONRO; Blood Gas Sample Site Brachial, right; Oxygen Device BIPAP
[2022-04-04 16:46] LABS: Glucose Point of Care 138 mg/dL (70-110)
--- NOTE | 2022-04-04 17:34 | PC.NURSE ---
Patient able to get up to chair with minimal assist, no increased SOB with transfer. tolerated bipap throughout shift
[2022-04-04] MEDS: dexmedeTOMIDine 0.9 % NaCL 400 MCG/100 ML PREMIX IV (18:33)
--- NOTE | 2022-04-04 19:03 | PC.NURSE ---
RR 30s to 40s when transferring from chair to bed. precedex started per nov. RR slowly improving. patient sitting on side of bed at this time, educated on increased moving increases SOB and need to breath slowly and calm
[2022-04-04 20:32] LABS: Glucose Point of Care 305 mg/dL (70-110)
[2022-04-04] MEDS: insulin glargine 100 units/1 mL 20 UNIT SUBCUT (20:37)
[2022-04-05] VITALS (90 sets, daily range): BP systolic 92–150; BP diastolic 53–84; PULSE 55–105; RESP 16–37; TEMP 36.2–37.1; O2SAT 85–99
[2022-04-05] MEDS: enoxaparin 40 mg/0.4 mL Syringe SUBCUT (02:46)
[2022-04-05] MEDS: ipratropium-albuterol 3 mL Neb INHALATION ×4 (02:54→21:02)
[2022-04-05 03:16] LABS: ABG PCO2 56.4 mmHg (35-45); ABG PH Result 7.37 (7.35-7.45); Arterial Blood Gas Hematocrit 35.5 % (42-52); Base Excess ABG 5.9 mmol/L (-2.0-2.0); Blood Gas Allen Test Pos; Blood Gas Sample Site Radial, right; Blood Gas Sample Type Arterial; HCO3 ABG 32.6 mmol/L (22-26); Oxygen Device BIPAP; PO2 ABG 74.1 mmHg (80.0-100.0)
--- NOTE | 2022-04-05 04:00 | XR_ITS ---
WS: [id number] XR chest 1V portable [id number] REASON FOR EXAM: COVID FINDINGS: Compared to the previous examination of 04/03/2022, bibasilar interstitial and groundglass lung opacit ies have undergone minimal resolution. Considerable abnormality remains. Costophrenic angle and diaphragm configuration indicating bilateral pleural effusions, relatively unc hanged. No new findings. XR/XR chest 1V portable [id number] IMPRESSION: Minimal improvement of abnormal chest as above.
[2022-04-05 05:34] LABS: Basophils % 0.2 %; Hematocrit 38.6 % (42.0-52.0); Hemoglobin 11.8 g/dL (11.7-16.6); Lymphocytes # 0.8 10^3/uL (0.8-4.8); Lymphocytes % 6.4 %; Mean Corpuscular HGB Conc 30.6 g/dL (30.0-36.0); Mean Corpuscular Hemoglobin 23.6 pg (28.0-34.0); Mean Platelet Volume 9.1 fL (7.4-10.4); Monocytes # 0.8 10^3/uL (0.2-0.9); Monocytes % 6.6 %; Nucleated Red Blood Cells % 0 %; Platelet Count 417 10^3/cmm (130-400); Red Blood Count 5.01 10^6/uL (4.1-5.3); White Blood Count 11.9 10^3/uL (4.0-10.0)
[2022-04-05 05:46] LABS: D Dimer 0.74 ug/mIFEU (0-0.59)
[2022-04-05] MEDS: remdesivir 100 MG in sodium chloride 0.9% (100 ml) 100 ML IV (06:04)
[2022-04-05 06:18] LABS: Anion Gap 14.1 (5-19); Blood Urea Nitrogen 49 mg/dL (8-23); C Reactive Protein 112.8 mg/L (0.0-4.9); Calcium 8.7 mg/dL (8.5-10.5); Carbon Dioxide 32 mmol/L (22-29); Chloride 92 mmol/L (98-107); Glomerular Filtration Rate 38.2 mL/min (90-130); Glucose 188 mg/dL (65-115); Osmolality Calculated 292 mOsm/kg (285-295); Potassium 6.1 mmol/L (3.5-5.1); Sodium 132 mmol/L (136-145)
[2022-04-05] MEDS: dexmedeTOMIDine 0.9 % NaCL 400 MCG/100 ML PREMIX 6.5 MCG IV (06:56)
[2022-04-05 07:26] LABS: Glucose Point of Care 239 mg/dL (70-110)
[2022-04-05] MEDS: citalopram 20 mg Tablet 10 MG PO (08:28)
[2022-04-05] MEDS: tamsulosin 0.4 mg Capsule PO (08:28)
[2022-04-05] MEDS: insulin lispro 100 unit/1 mL SUBCUT ×4 (08:28→20:35)
[2022-04-05] MEDS: BuSPIRONE 10 mg Tablet PO ×3 (08:28→20:35)
[2022-04-05] MEDS: sodium polystyrene sulfonate 15 gm/60 mL Btl PO (08:28)
[2022-04-05] MEDS: aspirin 81 mg EC Tablet PO (08:29)
[2022-04-05] MEDS: levoFLOXacin 750 mg Tablet PO (08:29)
[2022-04-05] MEDS: venlafaxine ER (24HR) 75 mg Capsule PO (08:29)
[2022-04-05] MEDS: gabapentin 100 mg Capsule PO (08:29)
[2022-04-05] MEDS: metoprolol tartrate 25 mg Tablet PO ×2 (08:29→17:57)
[2022-04-05] MEDS: mirtazapine 30 mg Tablet PO (08:29)
[2022-04-05] MEDS: pantoprazole DR 40 mg Tablet PO (08:29)
[2022-04-05] MEDS: atorvastatin 40 mg Tablet PO (08:29)
[2022-04-05] MEDS: dextrose 50% syringe 50 mL 25 ML IVP (08:30)
[2022-04-05] MEDS: insulin regular-human 10 UNIT in SYRINGE 1 EACH IVP (08:30)
[2022-04-05] MEDS: calcium gluconate 0.9% NaCL 1 GM/50 ML PREMIX IV (08:30)
[2022-04-05] MEDS: sodium chloride 0.9% 1,000 ML 30 ML IV (08:42)
[2022-04-05] MEDS: budesonide 0.5 mg/2 mL Neb INHALATION ×2 (09:10→21:03)
--- NOTE | 2022-04-05 09:38 | PC.CHAP ---
Pastoral Care Encounter/Spiritual Assessment Type of Contact [] Declined duck farmer visit [] Patient/Family/Request visit [] Outpatient visit [] Follow-up visit [] Physician referral [] Code/Alert [x] Routine visit [] Staff referral [] Actively dying [] Patient sleeping [] Family support [] [] Out of room [] Palliative care [] [] Receiving care in room [] Pre-surgical visit [] Trauma [] Long length of stay [x] ICU visit [x] Other: isolated Relational/Emotional Strength [] Patient feels connected with others/family/visitors/staff [] Distress [] Loneliness/isolation [] Abandonment Spirituality of Patient [] Person of Maida [] Attends Anabaptism of their Maida [] Believes in Prayer [] Reads Bible or Sikhism materials [] There are Spiritual issues to be addressed Engineering Assistant Interventions [x] Prayer [] Active listening [] Non-anxious presence [] Spiritual/emotional support [] Crisis/trauma care [] Spiritual counseling [] Bereavement support [] Provided bereavement packet [] Provided Bible/devotional materials [] Provided toy/stuffed animal, coloring book to patient or family member [] Provided Communion [] Anointing/Dilley [] Salvation [x] Completed spiritual assessment [] Other: Impact on Illness or Injury [] Angry [] Fearful [] Anxious [] Often cries [] Exhaustion [] Unable to work [] Unable to attend orthodox [] Unable to walk/stand [] Unable to read [] Unable to drive [] Unable to eat/drink [] Unable to sleep [] Unable to be with family [] Patient intubated [] Other: Summary Time spent with patient
--- NOTE | 2022-04-05 10:49 | PM.PN ---
Subjective Subjective: Patient has stayed on BiPAP, he has not been able to eat much, signs of dehydration, creatinine seems to be getting worse, for hyperkalemia I have given him insulin, D50, calcium gluconate and albuterol this morning, I will also give him a dose of bicarb Recheck BMP 11 AM Patient is endorsing feeling slightly better His PCO2 has improved Currently he is on FiO2 40% settings 08/24 saturating 99% He was able to tell me that he is in the hospital He is awake alert able to follow commands Vitals/I&O/Wt Last Vital Signs Temp 97.1 F L 04/05/22 07:00 Pulse 74 04/05/22 09:15 Resp 23 H 04/05/22 09:15 BP 117/75 04/05/22 09:15 Pulse Ox 94 04/05/22 09:15 04/04/22 04/05/22 04/05/22 22:59 06:59 14:59 Intake Total 512.304 / 782.304 448.967 / 1231.271 450.2 / 450.2 Output Total 1000 / 1000 500 / 1500 Balance -487.696 / -217.696 -51.033 / -268.729 450.2 / 450.2 Weight last 48 hrs Weight 86.455 kg Weight 86.636 kg Weight 86.636 kg Weight 92.986 kg Physical Exam Narrative: Patient is on BiPAP settings 08/24 FiO2 40% Saturating 99% Looks dehydrated Nonfocal neuro exam No signs of stroke Fatigue S1, S2 Bilateral breath sound with crepitation and rhonchi Abdomen is soft Urinary Catheter Management: Akhtar: Cath Placed During This Visit: yes Reason for Continuing Indwelling Catheter: Chronic Indwelling Urinary Catheter on Admission Urinary Catheter Date of Insertion: 04/04/22 Urinary Catheter Time of Insertion: 16:45 Data : 04/05/22 04:35 04/05/22 04:35 Micro: Microbiology 04/04/22 00:05 Blood Culture - Preliminary Blood NEGATIVE TO DATE 04/04/22 00:00 Blood Culture - Preliminary Blood NEGATIVE TO DATE A&P Assessment and plan (1) Acute respiratory failure due to COVID-19: Status: Acute (2) COPD exacerbation: Status: Acute (3) Interstitial pulmonary fibrosis: Status: Acute (4) Pneumonia: Status: Acute (5) Presence of coronary angioplasty implant and graft: Status: Chronic (6) Anxiety disorder: Status: Chronic Qualifiers: Anxiety disorder type: generalized anxiety disorder Qualified Code(s): F41.1 - Generalized anxiety disorder Plan COVID-19 pneumonia Acute on chronic hypoxia at baseline uses 3 to 3.5 L at intermediate Currently on BiPAP FiO2 40% Making transition to heated high flow and ready to eat Because of BiPAP. She was not able to eat getting dehydrated He also received Lasix Acute on chronic kidney disease creatinine has worsened most likely secondary to poor p.o. intake I would like to gently hydrate him with normal saline 30 cc/h until this evening Hold Lasix for today Patient has been afebrile Continue budesonide, levofloxacin, methylprednisolone secondary to underlying pulmonary fibrosis, remdesivir regimen Patient is full code Daughter updated Patient is not able to eat properly because of his hypoxia then we can opt for PICC line placement and TPN For his diabetes he is currently on glargine 20 units and sliding scale DVT prophylaxis 40 mg daily No signs of stroke Attestations Medical Necessity Statement*: Continue ICU management Critical Care Time: 30 Coding Level of Care Code Acute Research Librarian for [facility] Diagnoses Acute respiratory failure due to COVID-19 U07.1; J96.00 COPD exacerbation J44.1 Interstitial pulmonary fibrosis J84.10 Pneumonia J18.9 Presence of coronary angioplasty implant and graft Z95.5 Anxiety disorder F41.1 Anxiety disorder type: generalized anxiety disorder
--- NOTE | 2022-04-05 11:00 | ECG_ITS ---
[facility] Test Date: 2022-04-05 Pat Name: Marlo Gleason Department: Room: [facility] Gender: Male Tooth Clerk: : 1955 Requested By: Cuca Do Order Number: [id number] MD: Jw Guillory M.D. Measurements Intervals [place] Rate: P: [place]: QRS: QRSD: T: QT: QTc: Interpretive Statements SINUS RHYTHM WITH PREMATURE ATRIAL CONTRACTIONS Compared to ECG 09/14/2021 23:46:09 Sinus rhythm no longer present Electronically Signed On 04-05-2022 18:08:29 CDT by Jw Guillory M.D. [id number]
[2022-04-05] MEDS: cefepime 1,000 MG in sodium chloride 0.9% (plus) 50 ML 100 MG IV ×2 (11:14→22:15)
[2022-04-05 11:22] LABS: Glucose Point of Care 277 mg/dL (70-110)
[2022-04-05 11:48] LABS: Blood Urea Nitrogen 51 mg/dL (8-23); Calcium 9.2 mg/dL (8.5-10.5); Carbon Dioxide 33 mmol/L (22-29); Chloride 92 mmol/L (98-107); Glomerular Filtration Rate 38.2 mL/min (90-130); Glucose 286 mg/dL (65-115); Osmolality Calculated 304 mOsm/kg (285-295); Sodium 135 mmol/L (136-145)
--- NOTE | 2022-04-05 12:38 | CT_ITS ---
WS: [id number] CT CHEST TECHNIQUE: Noncontrast CT of the chest with coronal and sagittal reformatted images. CLINICAL INFORMATION: pulm fibrosis covid COMPARISON: CT 1 20,018 DLP: 1032.[address] scans at [facility] use at least one of these dose optimization techniques: automated e xposure control; mA and/or kV adjustment per patient size (includes targeted exams where dose is matc hed to clinical indication); or iterative reconstruction. FINDINGS: Trace bilateral pleural fluid. Subpleural consolidation/atelectasis in the lung bases with a few air bronchograms. Recommend correlation for pneumonia. Diffuse interstitial thickening in the mid and low er lungs bilaterally similar to 2018. No subpleural honeycombing. Lung apices are well aerated. Moder ate chronic emphysematous changes. Prominent Anterior mediastinal and peribronchial lymph nodes. RIGHT hilar lymphadenopathy. RIGHT marissa r lymphadenopathy measures 1.9 CM. Lymphadenopathy is similar to 2018 No axillary lymphadenopathy. Cholecystectomy clips. Normal GE junction. Noncontrast spleen is normal. Adrenal glands are normal. Fatty atrophy of the pancreas. Partially visualized RIGHT renal cyst. Hyp ertrophic changes thoracic spine. CT/CT chest wo con [id number] IMPRESSION: 1. Trace bilateral pleural fluid with patchy partial consolidation/atelectasis in the lung bases. Recommend correlation for pneumonia. 2. Diffuse interstitial thickening in the mid and lower lungs bilaterally wendy lar to 2018. No subpleural honeycombing. 3. Moderate chronic emphysematous changes. Upper lungs are well aerated. 4. Prominent anterior mediastinal and peribronchial lymph nodes. RIGHT hilar l ymphadenopathy measuring 1.8 cm. This is similar in appearance to 2018 and is n onspecific. 5. Cholecystectomy clips. 6. No other acute findings.
--- NOTE | 2022-04-05 13:44 | PC.NURSE ---
20ga Iv removed located in the upper right forearm. 20ga inserted lower in the right forearm along with 18 in left forearm. Both were signed and wrapped with coban.
[2022-04-05 17:27] LABS: Glucose Point of Care 229 mg/dL (70-110)
[2022-04-05] MEDS: doxycycline 100 mg Tablet PO (17:57)
[2022-04-05 20:01] LABS: Glucose Point of Care 303 mg/dL (70-110)
[2022-04-05] MEDS: insulin glargine 100 units/1 mL 20 UNIT SUBCUT (20:35)
[2022-04-06] VITALS (53 sets, daily range): BP systolic 82–171; BP diastolic 46–96; PULSE 51–96; RESP 17–45; TEMP 36.5–36.8; O2SAT 81–97
[2022-04-06] MEDS: dexmedeTOMIDine 0.9 % NaCL 400 MCG/100 ML PREMIX 8.66 MCG IV (01:37)
[2022-04-06] MEDS: zolpidem 5 mg Tablet PO ×2 (02:01→20:20)
[2022-04-06] MEDS: enoxaparin 40 mg/0.4 mL Syringe SUBCUT (02:10)
[2022-04-06] MEDS: ipratropium-albuterol 3 mL Neb INHALATION ×4 (03:02→20:25)
[2022-04-06 04:34] LABS: ABG PCO2 50.5 mmHg (35-45); ABG PH Result 7.43 (7.35-7.45); Arterial Blood Gas Hematocrit 36.2 % (42-52); Blood Gas Allen Test Pos; Blood Gas Sample Type Arterial; HCO3 ABG 33.6 mmol/L (22-26); PO2 ABG 60.3 mmHg (80.0-100.0)
[2022-04-06 04:35] LABS: Blood Gas Operator Identificat MONRO; Blood Gas Sample Site Brachial, left; Oxygen Device NC
[2022-04-06] MEDS: remdesivir 100 MG in sodium chloride 0.9% (100 ml) 100 ML IV (05:38)
[2022-04-06 07:04] LABS: Glucose Point of Care 269 mg/dL (70-110)
[2022-04-06 07:07] LABS: Basophils % 0.1 %; Hematocrit 37.8 % (42.0-52.0); Lymphocytes # 0.8 10^3/uL (0.8-4.8); Lymphocytes % 5.6 %; Mean Corpuscular HGB Conc 31.7 g/dL (30.0-36.0); Mean Corpuscular Hemoglobin 23.4 pg (28.0-34.0); Mean Corpuscular Volume 73.8 fl (80-94); Monocytes # 0.7 10^3/uL (0.2-0.9); Neutrophils % 88.6 %; Nucleated Red Blood Cells % 0 %; Platelet Count 466 10^3/cmm (130-400); Red Blood Count 5.12 10^6/uL (4.1-5.3); Red Cell Distribution Width 15.8 % (12.1-15.1); White Blood Count 13.6 10^3/uL (4.0-10.0)
[2022-04-06 07:16] LABS: Anion Gap 13.9 (5-19); Blood Urea Nitrogen 48 mg/dL (8-23); C Reactive Protein 47.8 mg/L (0.0-4.9); Calcium 8.7 mg/dL (8.5-10.5); Carbon Dioxide 29 mmol/L (22-29); Chloride 95 mmol/L (98-107); Glomerular Filtration Rate 47.1 mL/min (90-130); Glucose 297 mg/dL (65-115); Osmolality Calculated 300 mOsm/kg (285-295); Potassium 4.9 mmol/L (3.5-5.1); Sodium 133 mmol/L (136-145)
[2022-04-06] MEDS: citalopram 20 mg Tablet 10 MG PO (08:15)
[2022-04-06] MEDS: venlafaxine ER (24HR) 75 mg Capsule PO (08:17)
[2022-04-06] MEDS: tamsulosin 0.4 mg Capsule PO (08:18)
[2022-04-06] MEDS: pantoprazole DR 40 mg Tablet PO (08:18)
[2022-04-06] MEDS: metoprolol tartrate 25 mg Tablet PO ×2 (08:18→17:45)
[2022-04-06] MEDS: atorvastatin 40 mg Tablet PO (08:18)
[2022-04-06] MEDS: doxycycline 100 mg Tablet PO ×2 (08:18→17:45)
[2022-04-06] MEDS: mirtazapine 30 mg Tablet PO (08:18)
[2022-04-06] MEDS: aspirin 81 mg EC Tablet PO (08:19)
[2022-04-06] MEDS: insulin lispro 100 unit/1 mL SUBCUT ×4 (08:19→20:21)
[2022-04-06] MEDS: BuSPIRONE 10 mg Tablet PO ×3 (08:19→20:20)
[2022-04-06] MEDS: gabapentin 100 mg Capsule PO (08:19)
[2022-04-06] MEDS: budesonide 0.5 mg/2 mL Neb INHALATION (09:34)
--- NOTE | 2022-04-06 10:11 | PC.CHAP ---
Pastoral Care Encounter/Spiritual Assessment Type of Contact [] Declined maintenance data analyst visit [] Patient/Family/Request visit [] Outpatient visit [] Follow-up visit [] Physician referral [] Code/Alert [x] Routine visit [] Staff referral [] Actively dying [] Patient sleeping [] Family support [] [] Out of room [] Palliative care [] [] Receiving care in room [] Pre-surgical visit [] Trauma [] Long length of stay [x] ICU visit [x] Other: 2nd maintenance data analyst visited to set with patient... Relational/Emotional Strength [] Patient feels connected with others/family/visitors/staff [] Distress [] Loneliness/isolation [] Abandonment Spirituality of Patient [x] Person of Maida [] Attends Methodist of their Maida [x] Believes in Prayer [] Reads Bible or Adventism materials [] There are Spiritual issues to be addressed Running Instructor Interventions [x] Prayer [x] Active listening [x] Non-anxious presence [x] Spiritual/emotional support [] Crisis/trauma care [] Spiritual counseling [] Bereavement support [] Provided bereavement packet [x] Provided Bible/devotional materials [] Provided toy/stuffed animal, coloring book to patient or family member [] Provided Communion [] Anointing/[place] [] Salvation [x] Completed spiritual assessment [] Other: Impact on Illness or Injury [] Angry [] Fearful [] Anxious [] Often cries [] Exhaustion [] Unable to work [] Unable to attend roman catholic [] Unable to walk/stand [] Unable to read [] Unable to drive [] Unable to eat/drink [] Unable to sleep [] Unable to be with family [] Patient intubated [] Other: Summary Time spent with patient
--- NOTE | 2022-04-06 10:29 | PM.PN ---
Subjective Subjective: This morning patient is on nasal cannula, 5 L, he saturating 90%, he is sitting in a chair Patient is stating that he is feeling improvement in his health He was able to eat breakfast this morning as well Hydration status improved Creatinine improved Adequate urine output He was not giving any Lasix yesterday Hemodynamically stable No fever Worsening leukocytosis which could be due to IV steroids, I have changed him to p.o. Decadron, discontinue inhaled steroids Is not requiring Precedex Vitals/I&O/Wt Last Vital Signs Temp 98.2 F 04/06/22 04:00 Pulse 76 04/06/22 10:00 Resp 28 H 04/06/22 10:00 BP 143/78 04/06/22 10:00 Pulse Ox 91 04/06/22 10:00 04/05/22 04/06/22 04/06/22 22:59 06:59 14:59 Intake Total 1730 / 2494.687 564.439 / 3059.126 233 / 233 Output Total 2500 / 3300 1100 / 4400 1000 / 1000 Balance -770 / -805.313 -535.561 / -1340.874 -767 / -767 Weight last 48 hrs Weight 85.457 kg Weight 86.455 kg Physical Exam Narrative: Sitting in chair eating breakfast Out of bed to chair Nonfocal neuro exam Awake and alert No signs of confusion No signs of stroke Currently on 5 L nasal cannula Signs of crepitation with mild rhonchi which are diffuse, Abdomen soft No signs of edema S1, S2 sinus rhythm Urinary Catheter Management: Akhtar: Cath Placed During This Visit: yes Reason for Continuing Indwelling Catheter: Accurate Measurement of Urinary Output in Critically Ill Patients Urinary Catheter Date of Insertion: 04/04/22 Urinary Catheter Time of Insertion: 16:45 Data : 04/06/22 06:35 04/06/22 06:35 A&P Assessment and plan (1) Interstitial pulmonary fibrosis: Status: Acute (2) Acute respiratory failure due to COVID-19: Status: Acute (3) Acute on chronic respiratory failure with hypoxia and hypercapnia: Status: Acute (4) COPD exacerbation: Status: Acute (5) COVID-19: Status: Acute (6) Hyperkalemia: Status: Acute (7) Pneumonia: Status: Acute (8) Mediastinal adenopathy: Status: Acute (9) Acute kidney injury superimposed on chronic kidney disease: Status: Acute Plan COVID-19 related hypoxia underlying pulmonary fibrosis Tested positive on March 31, we can discontinue his isolation tomorrow Acute on chronic hypoxia Concern for underlying pneumonia Currently on cefepime and doxycycline Switched from IV steroids to p.o. Discontinue budesonide Afebrile Has been transitioned from BiPAP to 5 L nasal cannula saturating 90% For now he will get remdesivir and Decadron Acute on chronic kidney disease, he was not diuresed yesterday, blood improvement in p.o. intake and gentle fluid hydration creatinine has improved to some extent Preserved ejection fraction without acute exacerbation Worsening of leukocytosis without febrile episodes this could be related to use of high-dose IV steroids, continue antibiotics for now, cultures are negative to date P.o. intake has been improved We do not need PICC line or TPN I am still waiting on MRSA PCR Requested PT evaluation Continue insulin sliding scale DVT prophylaxis with Lovenox Patient is full code If patient keeps showing signs of improvement we might be able to discharge back to [facility] within next 48 hours Attestations Medical Necessity Statement*: Continue ICU management Time Spent in Patient Care: 30 Coding Level of Care Code Acute Embalmer/Funeral Director for [facility] Fwd Diagnoses Interstitial pulmonary fibrosis J84.10 Acute respiratory failure due to COVID-19 U07.1; J96.00 Acute on chronic respiratory failure with hypoxia and hypercapnia J96.21; J96.22 COPD exacerbation J44.1 COVID-19 U07.1 Hyperkalemia E87.5 Pneumonia J18.9 Mediastinal adenopathy R59.0 Acute kidney injury superimposed on chronic kidney disease N17.9; N18.9
[2022-04-06 11:20] LABS: Estmated Average Glucose 203; Hemoglobin A1C 8.7 % (4.0-6.0)
[2022-04-06 11:37] LABS: Glucose Point of Care 398 mg/dL (70-110)
[2022-04-06] MEDS: cefepime 1,000 MG in sodium chloride 0.9% (plus) 50 ML 100 MG IV ×2 (11:41→22:57)
[2022-04-06 17:22] LABS: Glucose Point of Care 210 mg/dL (70-110)
[2022-04-06 19:42] LABS: Glucose Point of Care 261 mg/dL (70-110)
[2022-04-06] MEDS: HYDROcodone-acetaminophen 5-325 mg Tablet 1 TAB PO (20:20)
[2022-04-06] MEDS: insulin glargine 100 units/1 mL 30 UNIT SUBCUT (20:21)
[2022-04-07] VITALS (58 sets, daily range): BP systolic 85–149; BP diastolic 49–99; PULSE 56–108; RESP 16–53; TEMP 36.3–37; O2SAT 88–97
[2022-04-07] MEDS: enoxaparin 40 mg/0.4 mL Syringe SUBCUT (02:28)
[2022-04-07] MEDS: ipratropium-albuterol 3 mL Neb INHALATION ×4 (02:43→20:05)
[2022-04-07] MEDS: remdesivir 100 MG in sodium chloride 0.9% (100 ml) 100 ML IV (05:40)
[2022-04-07 06:49] LABS: Glucose Point of Care 109 mg/dL (70-110)
--- NOTE | 2022-04-07 07:46 | XR_ITS ---
WS: [id number] XR chest 1V portable [id number] REASON FOR EXAM: covid FINDINGS: The diffuse reticular and groundglass lung opacities in the lower and peripheral lung castillo are esse ntially unchanged compared to 04/05/2022. Hemidiaphragms remain flattened with blunting of the costophrenic angles. There are no new chest findings identified. XR/XR chest 1V portable [id number] IMPRESSION: Stable abnormal chest.
[2022-04-07] MEDS: fluticasone nasal spray 16gm Btl 2 SPRAY NASAL (08:15)
[2022-04-07] MEDS: aspirin 81 mg EC Tablet PO (08:16)
[2022-04-07] MEDS: tamsulosin 0.4 mg Capsule PO (08:16)
[2022-04-07] MEDS: dexamethasone 4 mg Tablet 6 MG PO (08:16)
[2022-04-07] MEDS: pantoprazole DR 40 mg Tablet PO (08:16)
[2022-04-07] MEDS: BuSPIRONE 10 mg Tablet PO ×3 (08:16→20:05)
[2022-04-07] MEDS: atorvastatin 40 mg Tablet PO (08:16)
[2022-04-07] MEDS: venlafaxine ER (24HR) 75 mg Capsule PO (08:16)
[2022-04-07] MEDS: doxycycline 100 mg Tablet PO ×2 (08:16→17:08)
[2022-04-07] MEDS: gabapentin 100 mg Capsule PO (08:16)
[2022-04-07] MEDS: mirtazapine 30 mg Tablet PO (08:16)
[2022-04-07] MEDS: citalopram 20 mg Tablet 10 MG PO (08:16)
[2022-04-07 08:20] LABS: Basophils % 0.2 %; Eosinophils % 0.2 %; Hematocrit 41.4 % (42.0-52.0); Lymphocytes % 20.8 %; Mean Corpuscular HGB Conc 31.4 g/dL (30.0-36.0); Mean Corpuscular Hemoglobin 23.7 pg (28.0-34.0); Mean Corpuscular Volume 75.5 fl (80-94); Mean Platelet Volume 8.8 fL (7.4-10.4); Monocytes % 14.3 %; Neutrophils # 9.01 10^3/uL (1.8-7.7); Neutrophils % 63.2 %; Nucleated Red Blood Cells % 0 %; Platelet Count 468 10^3/cmm (130-400); Red Blood Count 5.48 10^6/uL (4.1-5.3); Red Cell Distribution Width 16.3 % (12.1-15.1); White Blood Count 14.2 10^3/uL (4.0-10.0)
[2022-04-07 08:53] LABS: Blood Urea Nitrogen 44 mg/dL (8-23); C Reactive Protein 37.8 mg/L (0.0-4.9); Calcium 8.8 mg/dL (8.5-10.5); Carbon Dioxide 30 mmol/L (22-29); Chloride 97 mmol/L (98-107); Glucose 105 mg/dL (65-115); Osmolality Calculated 294 mOsm/kg (285-295); Sodium 136 mmol/L (136-145)
--- NOTE | 2022-04-07 10:42 | PC.CHAP ---
Pastoral Care Encounter/Spiritual Assessment Type of Contact [] Declined industry operations investigator visit [] Patient/Family/Request visit [] Outpatient visit [] Follow-up visit [] Physician referral [] Code/Alert [x] Routine visit [] Staff referral [] Actively dying [] Patient sleeping [] Family support [] [] Out of room [] Palliative care [] [] Receiving care in room [] Pre-surgical visit [] Trauma [] Long length of stay [x] ICU visit [] Other: setting up in chair Relational/Emotional Strength [] Patient feels connected with others/family/visitors/staff [] Distress [] Loneliness/isolation [] Abandonment Spirituality of Patient [] Person of Maida [] Attends Taoist of their Maida [] Believes in Prayer [] Reads Bible or Evangelical materials [] There are Spiritual issues to be addressed Sustainability Purchasing Agent Interventions [x] Prayer [x] Active listening [x] Non-anxious presence [x] Spiritual/emotional support [] Crisis/trauma care [] Spiritual counseling [] Bereavement support [] Provided bereavement packet [] Provided Bible/devotional materials [] Provided toy/stuffed animal, coloring book to patient or family member [] Provided Communion [] Anointing/[place] [] Salvation [x] Completed spiritual assessment [] Other: Impact on Illness or Injury [] Angry [] Fearful [] Anxious [] Often cries [] Exhaustion [] Unable to work [] Unable to attend hindu [] Unable to walk/stand [] Unable to read [] Unable to drive [] Unable to eat/drink [] Unable to sleep [] Unable to be with family [] Patient intubated [] Other: Summary patient not feeling better today... still weak Time spent with patient
[2022-04-07] MEDS: cefepime 1,000 MG in sodium chloride 0.9% (plus) 50 ML 100 MG IV ×2 (11:07→22:17)
[2022-04-07 11:17] LABS: Glucose Point of Care 232 mg/dL (70-110)
--- NOTE | 2022-04-07 11:24 | P.PN_ITS ---
Subjective Subjective: Slight worsening leukocytosis Currently on 5 L nasal cannula Overnight he required BiPAP for his tachypnea he also required Precedex CRP trending down Creatinine 1.4 Patient is able to tolerate his diet now X-ray is unchanged Signs of contraction alkalosis secondary to decreased p.o. intake Vitals/I&O/Wt Last Vital Signs Temp 98.5 F 04/07/22 08:00 Pulse 91 04/07/22 10:00 Resp 27 H 04/07/22 10:00 BP 139/80 04/07/22 10:00 Pulse Ox 92 04/07/22 10:00 04/06/22 04/07/22 04/07/22 22:59 06:59 14:59 Intake Total 1605.957 / 2368.957 267.753 / 2636.710 755.29 / 755.29 Output Total 700 / 1700 1800 / 3500 Balance 905.957 / 668.957 -1532.247 / -863.290 755.29 / 755.29 Weight last 48 hrs Weight 85.23 kg Weight 85.457 kg Physical Exam Narrative: He was on 5 L of cannula in the ICU when I saw him, he was sitting in a chair Bilateral breath sounds with crepitation and rhonchi He is tachypneic heart rate is in 90s, respiratory rate is in upper 30s Patient does not want his Akhtar catheter to be removed Abdomen soft No signs of edema Awake and alert No signs of stroke Does get short of breath on exertion Urinary Catheter Management: Akhtar: Cath Placed During This Visit: yes Reason for Continuing Indwelling Catheter: Accurate Measurement of Urinary Output in Critically Ill Patients Urinary Catheter Date of Insertion: 04/04/22 Urinary Catheter Time of Insertion: 16:45 Data : 04/07/22 07:48 04/07/22 07:48 Micro: Microbiology 04/05/22 11:11 MRSA Culture - Final Nose A&P Assessment and plan (1) Acute kidney injury superimposed on chronic kidney disease: Status: Acute (2) Interstitial pulmonary fibrosis: Status: Acute (3) Acute respiratory failure due to COVID-19: Status: Acute (4) Acute on chronic respiratory failure with hypoxia and hypercapnia: Status: Acute (5) COPD exacerbation: Status: Acute (6) COVID-19: Status: Acute (7) Hyperkalemia: Status: Acute (8) Mediastinal adenopathy: Status: Acute Plan Acute on chronic hypoxia due to COVID-19 pneumonia with underlying pulmonary fibrosis Intermittently requires Precedex and BiPAP Repeat x-ray did not show any acute changes or acute worsening He is on empirical antibiotic coverage with cefepime and doxycycline Chronic kidney disease: Creatinine seems to be around baseline, I do believe his worsening of creatinine is secondary to dehydration Type 2 diabetes Worsening hyperglycemia, I have stopped his IV steroids currently on p.o. Decadron glucose this morning is 132 On sliding scale and Lantus I will increase the dose of Lantus Deconditioning, related to COVID-19 and lack of ambulation PT evaluation on daily basis Off isolation Full code Is on dysphagia ground diet appreciate speech therapy recommendations Nasal congestion, Flonase and nasal saline spray today He is on mirtazapine because of anorexia and depression BPH: Tamsulosin, patient does not want his Akhtar catheter be removed for now Low blood pressure this morning, metoprolol was held, may resume if pressure allows today Secondary to underlying pulmonary fibrosis he is at high risk for deterioration Attestations Medical Necessity Statement*: Continue ICU management Time Spent in Patient Care: 30 Coding Level of Care Code Acute Cardiopulmonary Technologist Chief for [facility] Fwd Diagnoses Acute kidney injury superimposed on chronic kidney disease N17.9; N18.9 Interstitial pulmonary fibrosis J84.10 Acute respiratory failure due to COVID-19 U07.1; J96.00 Acute on chronic respiratory failure with hypoxia and hypercapnia J96.21; J96.22 COPD exacerbation J44.1 COVID-19 U07.1 Hyperkalemia E87.5 Mediastinal adenopathy R59.0
[2022-04-07] MEDS: insulin lispro 100 unit/1 mL SUBCUT ×3 (12:00→20:06)
--- NOTE | 2022-04-07 14:37 | PC.SOCIAL ---
IMM UPDATED IMM dated and initialed copy placed in chart and copy given to patient
[2022-04-07] MEDS: lidocaine 2% viscous 15 ML, aluminum-mag hydrox-simethicon 30 ML, sucralfate oral liq 1 GM PO (16:11)
[2022-04-07 16:48] LABS: Glucose Point of Care 308 mg/dL (70-110)
[2022-04-07] MEDS: metoprolol tartrate 25 mg Tablet PO (17:08)
[2022-04-07 19:59] LABS: Glucose Point of Care 322 mg/dL (70-110)
[2022-04-07] MEDS: insulin glargine 100 units/1 mL 33 UNIT SUBCUT (20:05)
[2022-04-07] MEDS: HYDROcodone-acetaminophen 5-325 mg Tablet 1 TAB PO (20:06)
[2022-04-08] VITALS (58 sets, daily range): BP systolic 108–171; BP diastolic 57–125; PULSE 61–112; RESP 14–33; TEMP 36.5–36.8; O2SAT 86–99; BMI 28.5
[2022-04-08] MEDS: ipratropium-albuterol 3 mL Neb INHALATION ×4 (02:11→20:08)
[2022-04-08] MEDS: enoxaparin 40 mg/0.4 mL Syringe SUBCUT (02:12)
[2022-04-08 05:07] LABS: Basophils % 0.2 %; Eosinophils # 0.1 10^3/uL (0.0-0.8); Eosinophils % 0.8 %; Hematocrit 40.9 % (42.0-52.0); Hemoglobin 12.2 g/dL (11.7-16.6); Lymphocytes # 2.5 10^3/uL (0.8-4.8); Lymphocytes % 18.8 %; Mean Corpuscular HGB Conc 29.8 g/dL (30.0-36.0); Mean Corpuscular Hemoglobin 23.3 pg (28.0-34.0); Mean Corpuscular Volume 78.2 fl (80-94); Mean Platelet Volume 9.4 fL (7.4-10.4); Monocytes # 1.8 10^3/uL (0.2-0.9); Monocytes % 13.7 %; Neutrophils # 8.52 10^3/uL (1.8-7.7); Neutrophils % 64.6 %; Nucleated Red Blood Cells % 0 %; Platelet Count 490 10^3/cmm (130-400); Red Blood Count 5.23 10^6/uL (4.1-5.3); Red Cell Distribution Width 16.3 % (12.1-15.1); White Blood Count 13.2 10^3/uL (4.0-10.0)
[2022-04-08 05:19] LABS: ABG PCO2 49.4 mmHg (35-45); ABG PH Result 7.43 (7.35-7.45); Arterial Blood Gas Hematocrit 40.4 % (42-52); Base Excess ABG 7.1 mmol/L (-2.0-2.0); Blood Gas Allen Test Pos; Blood Gas Operator Identificat JB; Blood Gas Sample Site Radial, right; Blood Gas Sample Type Arterial; HCO3 ABG 32.8 mmol/L (22-26); Oxygen Device NC; PO2 ABG 71.9 mmHg (80.0-100.0)
[2022-04-08] MEDS: remdesivir 100 MG in sodium chloride 0.9% (100 ml) 100 ML IV (05:20)
[2022-04-08 05:24] LABS: Anion Gap 13.9 (5-19); Blood Urea Nitrogen 45 mg/dL (8-23); Calcium 8.8 mg/dL (8.5-10.5); Carbon Dioxide 32 mmol/L (22-29); Chloride 95 mmol/L (98-107); Glomerular Filtration Rate 55.6 mL/min (90-130); Glucose 141 mg/dL (65-115); Osmolality Calculated 296 mOsm/kg (285-295); Potassium 4.9 mmol/L (3.5-5.1); Sodium 136 mmol/L (136-145)
[2022-04-08 07:13] LABS: Glucose Point of Care 126 mg/dL (70-110)
[2022-04-08] MEDS: doxycycline 100 mg Tablet PO ×2 (08:13→18:06)
[2022-04-08] MEDS: pantoprazole DR 40 mg Tablet PO (08:13)
[2022-04-08] MEDS: BuSPIRONE 10 mg Tablet PO ×3 (08:13→20:24)
[2022-04-08] MEDS: citalopram 20 mg Tablet 10 MG PO (08:13)
[2022-04-08] MEDS: atorvastatin 40 mg Tablet PO (08:13)
[2022-04-08] MEDS: gabapentin 100 mg Capsule PO (08:13)
[2022-04-08] MEDS: aspirin 81 mg EC Tablet PO (08:14)
[2022-04-08] MEDS: mirtazapine 30 mg Tablet PO (08:14)
[2022-04-08] MEDS: tamsulosin 0.4 mg Capsule PO (08:14)
[2022-04-08] MEDS: metoprolol tartrate 25 mg Tablet PO ×2 (08:14→18:06)
[2022-04-08] MEDS: dexamethasone 4 mg Tablet PO (08:14)
[2022-04-08] MEDS: venlafaxine ER (24HR) 75 mg Capsule PO (08:17)
[2022-04-08] MEDS: fluticasone nasal spray 16gm Btl 2 SPRAY NASAL (08:17)
[2022-04-08] MEDS: cefepime 1,000 MG in sodium chloride 0.9% (plus) 50 ML 100 MG IV ×2 (10:47→22:41)
[2022-04-08 11:13] LABS: Glucose Point of Care 258 mg/dL (70-110)
--- NOTE | 2022-04-08 11:57 | PM.PN ---
Subjective Subjective: Patient is feeling much better today, he is on 5 L nasal cannula, he is not anxious today, he is eating breakfast Is able to walk around in the room He is not constipated, appetite is good, having regular bowel movement on daily basis, Leukocytosis likely getting better Afebrile ABG reviewed which is showing improvement on 5 L nasal cannula Creatinine at baseline Daughter updated Vitals/I&O/Wt Last Vital Signs Temp 98.1 F 04/08/22 11:10 Pulse 74 04/08/22 10:30 Resp 20 H 04/08/22 10:30 BP 133/83 04/08/22 10:30 Pulse Ox 94 04/08/22 10:30 04/07/22 04/08/22 04/08/22 22:59 06:59 14:59 Intake Total 480 / 1525.29 737 / 2262.29 650 / 650 Output Total 2089 / 2089 725 / 2815 400 / 400 Balance -1610 / -564.71 12 / -552.71 250 / 250 Weight last 48 hrs Weight 85.23 kg Weight 85.23 kg Physical Exam Narrative: Patient is eating breakfast Currently on 5 L Abdomen soft Patient is euvolemic Awake and alert No signs of focal deficit Breath sounds are much more clear today as compared to yesterday however rhonchi present Urinary Catheter Management: Akhtar: Cath Placed During This Visit: yes Reason for Continuing Indwelling Catheter: Accurate Measurement of Urinary Output in Critically Ill Patients Urinary Catheter Date of Insertion: 04/04/22 Urinary Catheter Time of Insertion: 16:45 Data : 04/08/22 04:19 04/08/22 04:19 A&P Assessment and plan (1) Acute kidney injury superimposed on chronic kidney disease: Status: Acute (2) Interstitial pulmonary fibrosis: Status: Acute (3) Acute respiratory failure due to COVID-19: Status: Acute (4) Acute on chronic respiratory failure with hypoxia and hypercapnia: Status: Acute (5) COPD exacerbation: Status: Acute (6) COVID-19: Status: Acute (7) Hyperkalemia: Status: Acute (8) COVID-19 vaccine dose not administered: Status: Acute (9) Pneumonia: Status: Acute (10) Mediastinal adenopathy: Status: Acute (11) Anxiety disorder: Status: Chronic Qualifiers: Anxiety disorder type: generalized anxiety disorder Qualified Code(s): F41.1 - Generalized anxiety disorder (12) Presence of coronary angioplasty implant and graft: Status: Chronic Plan Acute on chronic hypoxia At baseline uses 3 to 3.5 L COVID-19, pneumonia, underlying pulmonary fibrosis Currently doing well on 5 L nasal cannula I will continue empirical antibiotic coverage until the day of discharge Not requiring BiPAP or Precedex now Chronic kidney disease: Creatinine at baseline Slight worsening of creatinine improved after IV fluid hydration Type 2 diabetes: Barium swallow showed transient episode of laryngeal penetration without ludy aspiration Daily PT evaluation, patient has been able to get up on his own walk around, endorsing good appetite, having regular bowel movement on daily basis Off isolation Continue dysphagia ground diet Continue tamsulosin, Akhtar catheter can be removed Blood pressure is stable Family and shoe caser updated If he keeps on showing signs of improvement, I will be able to discharge him tomorrow most likely Attestations Medical Necessity Statement*: Discharge tomorrow Critical Care Time: 20 Coding Level of Care Code Acute Process Controls Technician for [facility] Fwd Diagnoses Acute kidney injury superimposed on chronic kidney disease N17.9; N18.9 Interstitial pulmonary fibrosis J84.10 Acute respiratory failure due to COVID-19 U07.1; J96.00 Acute on chronic respiratory failure with hypoxia and hypercapnia J96.21; J96.22 COPD exacerbation J44.1 COVID-19 U07.1 Hyperkalemia E87.5 COVID-19 vaccine dose not administered Z28.9 Pneumonia J18.9 Mediastinal adenopathy R59.0 Anxiety disorder F41.1 Anxiety disorder type: generalized anxiety disorder Presence of coronary angioplasty implant and graft Z95.5
[2022-04-08] MEDS: insulin lispro 100 unit/1 mL SUBCUT ×4 (12:11→20:24)
[2022-04-08] MEDS: saline nasal spray 44mL Btl 1 SPRAY NASAL ×2 (14:16→21:45)
--- NOTE | 2022-04-08 15:34 | PC.NURSE ---
Report given to Malena GRANT
[2022-04-08 17:11] LABS: Glucose Point of Care 256 mg/dL (70-110)
[2022-04-08 20:24] LABS: Glucose Point of Care 349 mg/dL (70-110)
[2022-04-08] MEDS: zolpidem 5 mg Tablet PO (20:24)
[2022-04-08] MEDS: insulin glargine 100 units/1 mL 33 UNIT SUBCUT (20:25)
[2022-04-09] VITALS (36 sets, daily range): BP systolic 96–166; BP diastolic 50–141; PULSE 56–93; RESP 15–36; TEMP 36.3–36.6; O2SAT 87–97
[2022-04-09] MEDS: enoxaparin 40 mg/0.4 mL Syringe SUBCUT (02:11)
[2022-04-09] MEDS: ipratropium-albuterol 3 mL Neb INHALATION ×3 (03:02→13:58)
[2022-04-09 04:32] LABS: Basophils % 0.2 %; Eosinophils # 0.3 10^3/uL (0.0-0.8); Eosinophils % 1.9 %; Hematocrit 41.7 % (42.0-52.0); Hemoglobin 12.4 g/dL (11.7-16.6); Lymphocytes # 2.6 10^3/uL (0.8-4.8); Lymphocytes % 18.7 %; Mean Corpuscular HGB Conc 29.7 g/dL (30.0-36.0); Mean Corpuscular Hemoglobin 23.5 pg (28.0-34.0); Mean Corpuscular Volume 79.1 fl (80-94); Mean Platelet Volume 9.6 fL (7.4-10.4); Monocytes # 1.5 10^3/uL (0.2-0.9); Monocytes % 10.6 %; Neutrophils # 9.39 10^3/uL (1.8-7.7); Neutrophils % 66.6 %; Nucleated Red Blood Cells % 0 %; Platelet Count 443 10^3/cmm (130-400); Red Blood Count 5.27 10^6/uL (4.1-5.3); Red Cell Distribution Width 16.5 % (12.1-15.1); White Blood Count 14.1 10^3/uL (4.0-10.0)
[2022-04-09 05:02] LABS: Blood Urea Nitrogen 46 mg/dL (8-23); Carbon Dioxide 33 mmol/L (22-29); Chloride 96 mmol/L (98-107); Glucose 120 mg/dL (65-115); Osmolality Calculated 295 mOsm/kg (285-295); Sodium 136 mmol/L (136-145)
[2022-04-09 05:14] LABS: Anion Gap 12.5 (5-19); Potassium 5.5 mmol/L (3.5-5.1)
[2022-04-09] MEDS: remdesivir 100 MG in sodium chloride 0.9% (100 ml) 100 ML IV (05:25)
[2022-04-09] MEDS: saline nasal spray 44mL Btl 1 SPRAY NASAL (05:25)
[2022-04-09 07:26] LABS: Glucose Point of Care 92 mg/dL (70-110)
[2022-04-09] MEDS: mirtazapine 30 mg Tablet PO (09:11)
[2022-04-09] MEDS: pantoprazole DR 40 mg Tablet PO (09:11)
[2022-04-09] MEDS: gabapentin 100 mg Capsule PO (09:11)
[2022-04-09] MEDS: citalopram 20 mg Tablet 10 MG PO (09:11)
[2022-04-09] MEDS: venlafaxine ER (24HR) 75 mg Capsule PO (09:11)
[2022-04-09] MEDS: BuSPIRONE 10 mg Tablet PO (09:11)
[2022-04-09] MEDS: metoprolol tartrate 25 mg Tablet PO (09:11)
[2022-04-09] MEDS: tamsulosin 0.4 mg Capsule PO (09:11)
[2022-04-09] MEDS: atorvastatin 40 mg Tablet PO (09:11)
[2022-04-09] MEDS: doxycycline 100 mg Tablet PO (09:11)
[2022-04-09] MEDS: aspirin 81 mg EC Tablet PO (09:11)
[2022-04-09] MEDS: insulin lispro 100 unit/1 mL SUBCUT ×3 (09:17→11:35)
[2022-04-09] MEDS: fluticasone nasal spray 16gm Btl 2 SPRAY NASAL (09:17)
--- NOTE | 2022-04-09 11:08 | P.DS_ITS ---
Discharge Providers Date of Admission: 04/04/22 01:22 Date of Discharge: April 09, 2022 Attending Provider at Admission: Antonia Naranjo MD Attending Provider at Discharge: Cuca Do MD Diagnoses at Discharge Discharge Diagnosis (1) Acute kidney injury superimposed on chronic kidney disease: Status: Acute (2) Interstitial pulmonary fibrosis: Status: Acute (3) Acute respiratory failure due to COVID-19: Status: Acute (4) Acute on chronic respiratory failure with hypoxia and hypercapnia: Status: Acute (5) COPD exacerbation: Status: Acute (6) COVID-19: Status: Acute (7) Hyperkalemia: Status: Acute (8) COVID-19 vaccine dose not administered: Status: Acute (9) Pneumonia: Status: Acute (10) Mediastinal adenopathy: Status: Acute (11) Anxiety disorder: Status: Chronic Qualifiers: Anxiety disorder type: generalized anxiety disorder Qualified Code(s): F41.1 - Generalized anxiety disorder (12) Presence of coronary angioplasty implant and graft: Status: Chronic Reason for Visit Reason for Visit: COVID Hospital Course Hospital Course Marlo Gleason is a 66 year old male, [place] resident, h/o COPD typically on 3 to 3.5 L supplemental oxygen at the halfway brought in today with chief complaints of respiratory distress.? Per discussion with the halfway staff, patient developed fever of 100 Fahrenheit 4 to 5 days ago and tested positive for COVID-19 on March 31, 2022.? He continued to have worsening cough and dyspnea over the next 4 days, today he was noted to have oxygen saturation of 70 to 80% on nonrebreather 5 L/min.? His oxygen requirements continued to climb up quickly and he was sent into the emergency room.? ABG upon arrival showed hypoxic hypercapnic respiratory failure with pH 7.32/60.2/51.2/30.8 Patient was admitted to ICU, he was kept on BiPAP, he was put on Precedex, he kept requiring BiPAP intermittently for the next 48 hours, however we were able to transition him down to nasal cannula, he was requiring 4 to 5 L of nasal cannula to keep his O2 saturation above 90%, he was able to eat on his own, signs of dehydration improved with better p.o. intake, gentle fluid hydration was given as well which improved his acute on chronic kidney disease and blood pressure. With improvement in p.o. intake he was having regular bowel movement on daily basis as well. His mentation never worsened. No signs of stroke. D- dimer remains unremarkable, MRSA PCR positive, blood cultures negative, he remained afebrile. He was treated empirically with IV antibiotics because of interstitial lung disease he was getting doxycycline and cefepime. At the time of discharge I will give him doxycycline and azithromycin 5-day course along trilogy. We will give him referral to see radiotelephone technical operator outpatient. At the time of discharge she is requiring 5 L of oxygen. He is able to eat on his own, he is also getting out of bed to chair and walking in the room without any difficulty. Daughter has been updated. Speech therapist recommended ground dysphagia level 2 diet He has a past medical history significant for COPD, however it appears he may have a diagnosis of interstitial lung disease as well.? DENY work-up from April 2021 was positive for cytoplasmic antinuclear antibody titer of 1 and 40 and previous CAT scans dating back to additionally show bilateral mixed airspace and interstitial opacities and mediastinal lymphadenopathy which has been chronic.? Prior barium swallow evaluation has shown transient episodes of laryngeal penetration, no ludy aspiration Physical Exam Narrative: He was on 5 L of cannula Sitting in a chair Akhtar catheter has been removed Bilateral breath sounds with crepitation and rhonchi Abdomen soft No signs of edema Awake and alert No signs of stroke Urinary Catheter Management: Akhtar: Cath Placed During This Visit: yes, but has since been removed by the nurse Reason for Continuing Indwelling Catheter: Decision to DC Catheter Urinary Catheter Date of Insertion: 04/04/22 Urinary Catheter Time of Insertion: 16:45 Date Urinary Catheter Removed: 04/08/22 Time Urinary Catheter Discontinued: 13:29 Discharge Data Studies Completed and Pending Completed Studies During Hospitalization Category Date Time Status CT chest wo con [id number] Routine Cat Scan 04/05/22 12:38 Completed XR chest 1V portable [id number] AM LABS Exams 04/05/22 04:00 Completed XR chest 1V portable [id number] Routine Exams 04/07/22 07:46 Completed XR chest 1V portable [id number] Urgent Exams 04/03/22 23:29 Completed CV. echo limited [id number] Routine Ultrasound 04/04/22 12:39 Completed Pending at discharge Category Date Time Status Arterial Blood Gas W/Coox Stat Lab 04/03/22 00:18 Results Radiology Impressions Chest CT 04/05/22 12:38 IMPRESSION: 1. Trace bilateral pleural fluid with patchy partial consolidation/atelectasis in the lung bases. Recommend correlation for pneumonia. 2. Diffuse interstitial thickening in the mid and lower lungs bilaterally similar to 2018. No subpleural honeycombing. 3. Moderate chronic emphysematous changes. Upper lungs are well aerated. 4. Prominent anterior mediastinal and peribronchial lymph nodes. RIGHT hilar lymphadenopathy measuring 1.8 cm. This is similar in appearance to 2018 and is nonspecific. 5. Cholecystectomy clips. 6. No other acute findings. Chest X-Ray 04/07/22 07:46 IMPRESSION: Stable abnormal chest. Laboratory Results WBC 14.1 10^3/uL (4.0-10.0) H 04/09/22 03:45 RBC 5.27 10^6/uL (4.1-5.3) 04/09/22 03:45 Hgb 12.4 g/dL (11.7-16.6) 04/09/22 03:45 Hct 41.7 % (42.0-52.0) L 04/09/22 03:45 MCV 79.1 fl (80-94) L 04/09/22 03:45 MCH 23.5 pg (28.0-34.0) L 04/09/22 03:45 MCHC 29.7 g/dL (30.0-36.0) L 04/09/22 03:45 RDW 16.5 % (12.1-15.1) H 04/09/22 03:45 Plt Count 443 10^3/cmm (130-400) H 04/09/22 03:45 MPV 9.6 fL (7.4-10.4) 04/09/22 03:45 Neut % (Auto) 66.6 % 04/09/22 03:45 Lymph % (Auto) 18.7 % 04/09/22 03:45 Early % (Auto) 10.6 % 04/09/22 03:45 Eos % (Auto) 1.9 % 04/09/22 03:45 Baso % (Auto) 0.2 % 04/09/22 03:45 Neut # (Auto) 9.39 10^3/uL (1.8-7.7) H 04/09/22 03:45 Lymph # (Auto) 2.6 10^3/uL (0.8-4.8) 04/09/22 03:45 Early # (Auto) 1.5 10^3/uL (0.2-0.9) H 04/09/22 03:45 Eos # (Auto) 0.3 10^3/uL (0.0-0.8) 04/09/22 03:45 Baso # (Auto) 0.0 10^3/uL (0.0-0.1) 04/09/22 03:45 Nucleated RBC % (auto) 0 % 04/09/22 03:45 Nucleated RBCs # 0.0 /100WBC 04/09/22 03:45 D-Dimer 0.74 ug/mIFEU (0-0.59) H 04/05/22 04:35 Specimen Type Arterial 04/08/22 05:04 Sample Site Radial, right 04/08/22 05:04 ABG pH 7.43 (7.35-7.45) 04/08/22 05:04 ABG pCO2 49.4 mmHg (35-45) H 04/08/22 05:04 ABG pO2 71.9 mmHg (80.0-100.0) L 04/08/22 05:04 ABG HCO3 32.8 mmol/L (22-26) H 04/08/22 05:04 ABG Base Excess 7.1 mmol/L (-2.0-2.0) H 04/08/22 05:04 Baldo Test Pos 04/08/22 05:04 Hematocrit 40.4 % (42-52) L 04/08/22 05:04 Hgb O2 Saturation 83.4 % (95-100) L 04/03/22 00:18 Carboxyhemoglobin 1.0 %THgb (0.4-20.1) 04/03/22 00:18 Methemoglobin 0.8 % (0.4-1.5) 04/03/22 00:18 Total Hemoglobin 13.0 g/dL (14-18) L 04/03/22 00:18 O2 Delivery Device Nc 04/08/22 05:04 O2 Liters/Min 5.0 % 04/08/22 05:04 FiO2 40.0 % 04/06/22 04:22 Sample Tester Grinder ID Surendra 04/08/22 05:04 Sodium 136 mmol/L (136-145) 04/09/22 03:45 Potassium 5.5 mmol/L (3.5-5.1) H 04/09/22 03:45 Chloride 96 mmol/L (98-107) L 04/09/22 03:45 Carbon Dioxide 33 mmol/L (22-29) H 04/09/22 03:45 Anion Gap 12.5 (5-19) 04/09/22 03:45 BUN 46 mg/dL (8-23) H 04/09/22 03:45 Creatinine 1.4 mg/dL (0.7-1.2) H 04/09/22 03:45 GFR Calculation 51.0 mL/min (90-130) L 04/09/22 03:45 Glucose 120 mg/dL (65-115) H 04/09/22 03:45 POC Glucose 92 mg/dL (70-110) 04/09/22 07:08 Estimat Average Glucose 203 04/06/22 06:35 Hemoglobin A1c 8.7 % (4.0-6.0) H 04/06/22 06:35 Calculated Osmolality 295 mOsm/kg (285-295) 04/09/22 03:45 Lactic Acid 1.2 mmol/L (0.5-2.2) 04/03/22 23:35 Calcium 9.0 mg/dL (8.5-10.5) 04/09/22 03:45 Total Bilirubin 0.4 mg/dL (0.15-1.2) 04/04/22 05:45 AST 29 U/L (0-40) 04/04/22 05:45 ALT 16 U/L (0-41) 04/04/22 05:45 Alkaline Phosphatase 101 IU/L (40-130) 04/04/22 05:45 C-Reactive Protein 39.0 mg/L (0.0-4.9) H 04/09/22 03:45 NT-Pro-B Natriuret Pep 660 pg/mL (0-125) H 04/03/22 23:35 Total Protein 7.6 g/dL (6.6-8.7) D 04/04/22 05:45 Albumin 3.1 g/dL (3.5-5.2) L 04/04/22 05:45 Globulin 4.5 g/dL (1.3-4.6) 04/04/22 05:45 Procalcitonin 0.40 ng/mL (0-0.5) 04/05/22 04:35 Vitals Last Vital Signs Temp 97.9 F 04/09/22 07:00 Pulse 71 04/09/22 10:00 Resp 19 H 04/09/22 10:00 BP 125/58 04/09/22 10:00 Pulse Ox 91 04/09/22 09:30 Discharge Plan Discharge Patient Disposition: Xfer SNF Condition: Stable Prescriptions: New benzonatate 100 mg Capsule 100 mg PO TID PRN (Reason: Cough) Qty: 90 0RF doxycycline monohydrate 100 mg Tablet 100 mg PO BID Qty: 10 0RF azithromycin 500 mg tablet 500 mg PO DAILY 3 Days Qty: 3 0RF Continued aspirin [Adult Low Dose Aspirin] 81 mg tablet,delayed release (DR/EC) 81 mg PO DAILY 0RF atorvastatin 40 mg tablet 40 mg PO BEDTIME 0RF buspirone 10 mg tablet 10 mg PO TID 0RF venlafaxine 75 mg capsule,extended release 24hr 75 mg PO DAILY 0RF metoprolol tartrate 25 mg tablet 25 mg PO BID 0RF Rx Instructions: Hold: Diastolic Blood Pressure <50, pulse is <50. Systolic Blood Pressure is <100 omeprazole 20 mg capsule,delayed release(DR/EC) 20 mg PO DAILY 0RF mirtazapine 30 mg tablet 30 mg PO DAILY 0RF tamsulosin 0.4 mg capsule 0.4 mg PO DAILY 0RF albuterol sulfate 2.5 mg /3 mL (0.083 %) solution for nebulization 2.5 mg inhalation Q4H PRN (Reason: shortness of breath) 0RF citalopram 10 mg tablet 20 mg PO DAILY 0RF cetirizine 5 mg tablet 5 mg PO DAILY 0RF ferrous sulfate 325 mg (65 mg iron) tablet 325 mg PO DAILY 0RF lorazepam 1 mg tablet 1 mg PO Q6H PRN (Reason: Anxiety) 0RF hydrocodone-acetaminophen 5-325 mg tablet 1 tab PO Q8H PRN (Reason: Moderate Pain (Scale Score 5-6)) 0RF polyethylene glycol 3350 [Miralax] 17 gram Powder In Packet 17 g PO DAILY PRN (Reason: Constipation) 0RF acetaminophen [Mapap Arthritis Pain] 650 mg Tablet Extended Release 650 mg PO Q12H 0RF bisacodyl 10 mg Suppository 10 mg SD DAILY PRN (Reason: Constipation) 0RF Enema Disposable 19-7 gram/118 mL Enema 118 ml SD PRN PRN (Reason: Constipation) 0RF montelukast 10 mg tablet 10 mg PO DAILY 0RF insulin glargine [Basaglar KwikPen U-100 Insulin] 100 unit/mL (3 mL) insulin pen 60 unit SUBCUT BEDTIME 0RF Novolog U-100 Insulin aspart 100 unit/mL Solution 8 unit SUBCUT .PER SLIDING SCALE 0RF Trelegy Ellipta 100-62.5-25 mcg Blister With Device 1 inh INHALATION DAILY Qty: 2 0RF ipratropium-albuterol 0.5 mg-3 mg(2.5 mg base)/3 mL solution for nebulization 3 ml inhalation QID PRN (Reason: Shortness Of Breath Or Wheezing) Qty: 15 0RF Discontinued losartan 25 mg tablet 25 mg PO DAILY 0RF Rx Instructions: hold for systolic BP <100, diastolic BP <50, or pulse <50 Discharge Orders: Discharge Order (Routine); Ordered 04/09/22 Ordered By: Cuca Do Referrals: DatarHorace MD [Physician] - 4-7 days Discharge Diet: As Directed Discharge Activity: Increase activity as tolerated Patient Instructions: Opioid Safety Activity Restrictions/Additional Instructions: Please take dysphagia diet level 2 ground diet Because of risk of aspiration level 2 dysphagia diet has been recommended by speech therapist Discharge Attestations Time Spent in Discharge Care*: less than 30 min Status at Discharge: Cognitive status at discharge: cognitively intact , Behavioral status at discharge: cooperative , Quality Metrics Clinical Quality Measures [ No reported AMI, CVA or VTE this stay] Coding Level of Care Code Acute Chg FW DC note Diagnoses Acute kidney injury superimposed on chronic kidney disease N17.9; N18.9 Interstitial pulmonary fibrosis J84.10 Acute respiratory failure due to COVID-19 U07.1; J96.00 Acute on chronic respiratory failure with hypoxia and hypercapnia J96.21; J96.22 COPD exacerbation J44.1 COVID-19 U07.1 Hyperkalemia E87.5 COVID-19 vaccine dose not administered Z28.9 Pneumonia J18.9 Mediastinal adenopathy R59.0 Anxiety disorder F41.1 Anxiety disorder type: generalized anxiety disorder Presence of coronary angioplasty implant and graft Z95.5
[2022-04-09 11:25] LABS: Glucose Point of Care 173 mg/dL (70-110)
--- NOTE | 2022-04-09 11:32 | PC.SOCIAL ---
IMM Updated Updated pt on IMM. No questions voiced. Provided pt a copy. Initialed, dated, & timed copy in chart.
[2022-04-09] MEDS: cefepime 1,000 MG in sodium chloride 0.9% (plus) 50 ML 100 MG IV (11:36)
[2022-04-09 12:12] LABS: SARS Covid-2 Antigen Negative (Negative)
--- NOTE | 2022-04-09 12:39 | PC.CHAP ---
Pastoral Care Encounter/Spiritual Assessment Type of Contact [] Declined continuous washer operator visit [] Patient/Family/Request visit [] Outpatient visit [] Follow-up visit [] Physician referral [] Code/Alert [x] Routine visit [] Staff referral [] Actively dying [x] Patient sleeping [] Family support [] [] Out of room [] Palliative care [] [] Receiving care in room [] Pre-surgical visit [] Trauma [] Long length of stay [x] ICU visit [x] Other: sitting up in chair Relational/Emotional Strength [] Patient feels connected with others/family/visitors/staff [] Distress [] Loneliness/isolation [] Abandonment Spirituality of Patient [] Person of Maida [] Attends Scientologist of their Maida [] Believes in Prayer [] Reads Bible or Yazidism materials [] There are Spiritual issues to be addressed Veterinary Microbiologist Interventions [x] Prayer [] Active listening [] Non-anxious presence [] Spiritual/emotional support [] Crisis/trauma care [] Spiritual counseling [] Bereavement support [] Provided bereavement packet [] Provided Bible/devotional materials [] Provided toy/stuffed animal, coloring book to patient or family member [] Provided Communion [] Anointing/[place] [] Salvation [x] Completed spiritual assessment [] Other: Impact on Illness or Injury [] Angry [] Fearful [] Anxious [] Often cries [] Exhaustion [] Unable to work [] Unable to attend jainism [] Unable to walk/stand [] Unable to read [] Unable to drive [] Unable to eat/drink [] Unable to sleep [] Unable to be with family [] Patient intubated [] Other: Summary Time spent with patient
--- NOTE | 2022-04-09 13:01 | PC.NURSE ---
[place] [facility] [place] within the next 3 hours per JUANITA Sagemeeting manager.
== END 2022-04-09 14:31 | disposition skilled nursing facility (03) | DRG 177 ==
LOC: ER 04-04 00:58 → ICU 04-04 01:49
PROVIDERS: Admitting Provider Student in an Organized Health Care Education/Training Program; Emergency Provider Emergency Medicine; Visit Provider Internal Medicine
DX: U07.1 COVID-19 (principal); J12.82 Pneumonia due to coronavirus disease 2019; J96.22 Acute and chronic respiratory failure with hypercapnia; J96.21 Acute and chronic respiratory failure with hypoxia; J44.1 Chronic obstructive pulmonary disease with (acute) exacerbation; N17.9 Acute kidney failure, unspecified; Z99.81 Dependence on supplemental oxygen; F41.1 Generalized anxiety disorder; I25.10 Atherosclerotic heart disease of native coronary artery without angina pectoris; Z95.5 Presence of coronary angioplasty implant and graft; E11.22 Type 2 diabetes mellitus with diabetic chronic kidney disease; E11.65 Type 2 diabetes mellitus with hyperglycemia; I12.9 Hypertensive chronic kidney disease with stage 1 through stage 4 chronic kidney disease, or unspecified chronic kidney disease; N18.9 Chronic kidney disease, unspecified; K21.9 Gastro-esophageal reflux disease without esophagitis; M10.9 Gout, unspecified; N40.0 Benign prostatic hyperplasia without lower urinary tract symptoms; E11.51 Type 2 diabetes mellitus with diabetic peripheral angiopathy without gangrene; Z85.828 Personal history of other malignant neoplasm of skin; F17.210 Nicotine dependence, cigarettes, uncomplicated; Z79.4 Long term (current) use of insulin; Z79.891 Long term (current) use of opiate analgesic; Z79.51 Long term (current) use of inhaled steroids; Z79.82 Long term (current) use of aspirin; B95.62 Methicillin resistant Staphylococcus aureus infection as the cause of diseases classified elsewhere; R13.10 Dysphagia, unspecified; R59.0 Localized enlarged lymph nodes; E87.5 Hyperkalemia; E86.0 Dehydration
CPT/HCPCS: 36415; 36416; 36600; 51702; 71045; 71250; 80048; 80053; 82803; 82805; 82962; 83036; 83605; 83880; 84145; 85025; 85378; 86140; 87040; 87426; 87641; 92610; 93005; 93308; 94640; 94660; 96365; 96367; 96372; 96375; 97110; 97161; 99291; J0610; J0692; J1630; J1650; J1815; J1940; J2543; J2930; J7030; J7626; J8540

== ENCOUNTER → 2022-04-26 13:57 | Outpatient (BNVA) | payer MEDICARE, MEDICAID, SELFPAY | PROVIDERS: PCP Internal Medicine; Visit Provider Internal Medicine Pulmonary Disease | DX: R06.00 Dyspnea, unspecified (principal); J43.2 Centrilobular emphysema; F41.1 Generalized anxiety disorder; Z95.5 Presence of coronary angioplasty implant and graft; R59.0 Localized enlarged lymph nodes; Z12.2 Encounter for screening for malignant neoplasm of respiratory organs; Z71.6 Tobacco abuse counseling; Z86.16 Personal history of COVID-19; F17.210 Nicotine dependence, cigarettes, uncomplicated | CPT/HCPCS: 99214 ==

== ENCOUNTER 2022-05-20 14:58 | Outpatient (CLI) | payer MEDICARE, MEDICAID, SELFPAY ==
--- NOTE | 2022-05-20 15:30 | CT_ITS ---
WS: [id number] CT CHEST WITHOUT INTRAVENOUS CONTRAST HISTORY: Short of breath with pulmonary fibrosis. TECHNIQUE: Contiguous 5 mm axial imaging performed on the thorax. Coronal and sagittal reformats are submitted. All CT scans at [facility] use at least one of these dose optimization techniques: automated exposure control; mA and/or kV adjustment per patient size (includes targeted exams where dose is matched to clinical indication); or iterative reconstruction. CONTRAST: None DLP: 762.26 mGy.cm COMPARISON: 04/05/2022 and 10/08/2017 Lungs and central airway: Mild pulmonary hyperinflation. Severe emphysematous changes with centrilobu lar emphysema in the upper lobes. Bilateral patchy areas of lucency and groundglass attenuation. Tree -in-bud airspace disease in the upper lower lobes. Patchy dense areas of consolidation at the lung ba ses. Conglomerate like masses are probably combination of atelectasis and fibrosis. There is bronchia l wall thickening in the lower lung castillo. Slightly spiculated nodule posteriorly at the origin of t he minor fissure measures 16 mm at its maximum. No interval change. Mild changes of bronchiectasis in the lower lung castillo. No honeycombing identified. Pleura: No pleural effusions. Heart and pericardium: Mildly enlarged heart. Mediastinum and marissa: Mildly enlarged mediastinal and hilar lymph nodes. Largest lymph node is at the AP window measuring 1.5 cm at its maximum diameter. This may be due to adjacent lymph nodes. Slightl y increased in size since the prior study. An additional prevascular and paratracheal lymph nodes not changed. Fullness at the LEFT hilum and suspicious for mildly prominent lymph nodes. Lymph nodes wer e also described on 07/20/2017 in this location. Without IV contrast these are probably not increased in size. Subcarinal lymph node measures 1.5 cm. Vessels: Atherosclerosis aorta. No aneurysm. Normal size pulmonary artery. Chest wall and lower neck: Mildly enlarged substernal RIGHT thyroid. Upper abdomen: Prior cholecystectomy. Small hiatal hernia. Osseous structures: Mild thoracic spondylitic change. No destructive bone lesions. CT/CT chest wo con [id number] IMPRESSION: 1. Patchy dense areas of consolidation at the lung bases are not significantly changed. The tree-in-bud airspace disease is also identified. Consolidations a re probably due to atelectasis and fibrosis. Underlying pneumonia may appear si milar. 2. No change in the slightly spiculated nodule in the RIGHT lung along the pos terior minor fissure. 3. Advanced centrilobular emphysema. 4. Mildly enlarged mediastinal and hilar lymph nodes. These may be reactive. 5. Recommend continued [address] follow-up to evaluate stability of the lymph nodes, the conglomerate masses/atelectasis/fibrosis at the lung bases an d the spiculated pleural-based nodule in the RIGHT lung. No change since 022.
== END 2022-05-20 14:59 | disposition home or self-care (01) ==
LOC: RAD 14:59
PROVIDERS: PCP Internal Medicine; Visit Provider Internal Medicine Pulmonary Disease
DX: J44.9 Chronic obstructive pulmonary disease, unspecified (principal); J84.10 Pulmonary fibrosis, unspecified
CPT/HCPCS: 71250

== ENCOUNTER 2022-06-01 14:00 | Outpatient (CLI) | payer MEDICARE, MEDICAID, SELFPAY ==
--- NOTE | 2022-06-01 14:48 | PFTS_ITS ---
Date of Study:06/01/22 Date of Dictation: MECHANICS: Forced vital capacity (FVC) is reduced. Forced expiratory volume in one second (FEV1) is reduced. FEV1/FVC is reduced. FLOW VOLUME LOOP: Reduced flow at all lung volumes with significant scooping. LUNG VOLUMES: Not measured DIFFUSING CAPACITY FOR CARBON MONOXIDE: Severely reduced. INTERPRETATION: The prebronchodilator spirometry is consistent with severe airflow obstruction. No postbronchodilator spirometry was performed. However, the patient received albuterol before the prebronchodilator spirometry. A component of restrictive lung disease cannot be ruled out in the absence of lung volume measurement. Lung volume measurements were not performed. Gas exchange (DLCO) is severely reduced. MTDD
== END 2022-06-01 14:01 | disposition home or self-care (01) ==
LOC: RT 14:03
PROVIDERS: PCP Internal Medicine; Visit Provider Internal Medicine Pulmonary Disease
DX: J44.9 Chronic obstructive pulmonary disease, unspecified (principal); J84.10 Pulmonary fibrosis, unspecified
CPT/HCPCS: 94060; 94618; 94726; 94729; J7611

== ENCOUNTER 2022-09-25 15:03 | Emergency (ER) | payer MEDICARE, MEDICAID, SELFPAY ==
--- NOTE | 2022-09-25 15:12 | W.ED.PSYCHS ---
HPI - Psych General: Chief Complaint: Psychiatric Symptoms Stated Complaint: PSYCH EVAL Time Seen by Provider: 09/25/22 15:07 Source: patient and EMS Mode of arrival: EMS Limitations: no limitations History of Present Illness: 67-year-old male states that he is got chronic depression states that he got upset yesterday has been depressed today states he had told the nurse in the senior living that he was depressed and she had told him that she did not have time to consider short staffed he then became agitated senior living called EMS because of his agitation patient's been cooperative here he states that he does have depression he states he is passing suicidal thoughts he states he has had these for years he denies any active suicidal intent or plan he has been cooperative here and answering all my questions appropriately. Associated symptoms: Reports depression Review of Systems Const: Denies: fever(s), chills, body aches or change in appetite Eyes: Denies: blurry vision or eye discomfort ENMT: Denies: throat pain or dental pain Card: Denies: chest pain Resp: Denies: dyspnea GI: Denies: abdominal pain, nausea, vomiting or diarrhea : Denies: dysuria Musc: Denies: neck pain or back pain Skin/Breast: Denies: rash Neuro: Denies: headache(s) Psych: Reports: depression Gabe/Lymph: Denies: easy bruising All/Imm: Denies: urticaria PFSH ED PFSH: Medical History Anxiety disorder CAD (coronary artery disease) CKD (chronic kidney disease) COPD (chronic obstructive pulmonary disease) COVID-19 vaccine dose not administered Diabetes mellitus GERD (gastroesophageal reflux disease) Gout Hypertension Mediastinal adenopathy On home oxygen therapy Usually on 2 L by nasal cannula Pneumonia Positive DENY (antinuclear antibody) Prostatic hypertrophy PVD (peripheral vascular disease) Skin cancer Specific type unknown Tobacco use Surgical History History of cholecystectomy History of coronary artery stent placement X2 History of skin surgery Left neck for skin cancer Presence of coronary angioplasty implant and graft Family History Mother Cancer Father CAD (coronary artery disease) Social History Smoking and tobacco status: current some day smoker cigarettes Years cigarettes smoked: 60 Quit status (tobacco): not considering quitting Second hand smoke exposure: Yes Alcohol intake: former Caregiver/support person: Yes Lives independently: No Housing: Jail Marital status: / service: No Current occupational status: disabled Pets and animals: Yes Current gender identity: Male Physical Exam Const: COMMON NORMALS: no acute distress, patient oriented x3 and healthy appearing HENMT: COMMON NORMALS: normocephalic and atraumatic HEAD & SCALP: normocephalic and atraumatic Eye: COMMON NORMALS: Equal, round and reactive pupils present and EOMs intact bilaterally PUPIL: Yes Equal, round and reactive pupils present Neck/C-Spine: COMMON NORMALS: full ROM and supple Chest: COMMONS NORMALS: normal inspection of the chest and normal palpation of entire chest wall Resp: COMMON NORMALS: normal respiratory effort, No retractions, No use of accessory muscles and clear to auscultation bilaterally AUSCULTATION: clear to auscultation bilaterally Cardio: COMMON NORMALS: regular rate, regular rhythm and No murmurs present (Cardio) RATE: regular rate RHYTHM: regular rhythm GI: COMMON NORMALS: Normal to inspection, nondistended, normoactive bowel sounds present, Soft to palpation, non-tender and no masses PALPATION: Yes Soft to palpation Extremity: COMMON NORMALS: normal to inspection and full ROM Neuro: COMMON NORMALS: patient oriented x3, moves all extremities and no focal motor deficits Psych: COMMON NORMALS: mental status grossly normal, Normal thought process present and cooperative MOOD & AFFECT: Yes depressed mood THOUGHT PROCESS: Normal thought process present Skin: COMMON NORMALS: no rashes or lesions noted and no wounds GENERAL SKIN EXAM: no rashes or lesions noted Course Vital Signs: Vital signs: Vital Signs Pulse Rate 74 09/25/22 15:32 Respiratory Rate 16 09/25/22 15:32 Blood Pressure 134/77 09/25/22 15:32 Pulse Oximetry 98 09/25/22 15:32 Oxygen Delivery Me thod 09/25/22 15:13 Oxygen Flow Rate 3 09/25/22 15:13 MDM - Psych Medical Decision Making Patient presents here with depression he is not actively suicidal I had patient evaluated by psychiatry here Dr. De Souza who agrees he feels he is stable for discharge we will discharge him back to the senior living at this time. Lab Data 09/25/22 15:26 09/25/22 15:26 Laboratory Results WBC 16.6 10^3/uL (4.0-10.0) H 09/25/22 15:26 RBC 5.44 10^6/uL (4.1-5.3) H 09/25/22 15:26 Hgb 13.1 g/dL (11.7-16.6) 09/25/22 15:26 Hct 43.9 % (42.0-52.0) 09/25/22 15:26 MCV 80.7 fl (80-94) 09/25/22 15:26 MCH 24.1 pg (28.0-34.0) L 09/25/22 15: MCHC 29.8 g/dL (30.0-36.0) L 09/25/22 15: RDW 16.0 % (12.1-15.1) H 09/25/22 15:26 Plt Count 377 10^3/cmm (130-400) 09/25/22 15: MPV 9.3 fL (7.4-10.4) 09/25/22 15:26 Neut % (Auto) 76.0 % 09/25/22 15:26 Lymph % (Auto) 13.2 % 09/25/22 15:26 [place] % (Auto) 8.7 % 09/25/22 15:26 Eos % (Auto) 1.2 % 09/25/22 15:26 Baso % (Auto) 0.4 % 09/25/22 15:26 Neut # (Auto) 12.62 10^3/uL (1.8-7.7) H 09/25/22 15:26 Lymph # (Auto) 2.2 10^3/uL (0.8-4.8) 09/25/22 15:26 [place] # (Auto) 1.5 10^3/uL (0.2-0.9) H 09/25/22 15:26 Eos # (Auto) 0.2 10^3/uL (0.0-0.8) 09/25/22 15:26 Baso # (Auto) 0.1 10^3/uL (0.0-0.1) 09/25/22 15:26 Nucleated RBC % (auto) 0 % 09/25/22 15:26 Nucleated RBCs # 0.0 /100WBC 09/25/22 15:26 Sodium 133 mmol/L (136-145) L 09/25/22 15:26 Potassium 4.9 mmol/L (3.5-5.1) 09/25/22 15:26 Chloride 94 mmol/L (98-107) L 09/25/22 15:26 Carbon Dioxide 29 mmol/L (22-29) 09/25/22 15:26 Anion Gap 14.9 (5-19) 09/25/22 15:26 BUN 29 mg/dL (8-23) H 09/25/22 15:26 Creatinine 1.7 mg/dL (0.7-1.2) H 09/25/22 15:26 GFR Calculation 40.7 mL/min (90-130) L 09/25/22 15:26 Glucose 152 mg/dL (65-115) H 09/25/22 15:26 Calculated Osmolality 285 mOsm/kg (285-295) 09/25/22 15:26 Calcium 9.0 mg/dL (8.5-10.5) 09/25/22 15:26 Total Bilirubin 0.3 mg/dL (0.15-1.2) 09/25/22 15:26 AST 13 U/L (0-40) 09/25/22 15:26 ALT 15 U/L (0-41) 09/25/22 15:26 Alkaline Phosphatase 137 U/L (40-130) H 09/25/22 15:26 Total Protein 8.6 g/dL (6.6-8.7) 09/25/22 15:26 Albumin 3.7 g/dL (3.5-5.2) 09/25/22 15:26 Globulin 4.9 g/dL (1.3-4.6) H 09/25/22 15:26 Salicylates < 0.3 mg/dL (3-10) L 09/25/22 15:26 Acetaminophen < 5.0 ug/mL (10-30) L 09/25/22 15:26 Ethyl Alcohol < 10 mg/dL (0-10) 09/25/22 15:26 Discharge Plan Discharge Patient Disposition: Home Clinical Impression: Depression Condition: Stable Prescriptions: No Action aspirin [Adult Low Dose Aspirin] 81 mg tablet,delayed release (DR/EC) 81 mg PO DAILY atorvastatin 40 mg tablet 40 mg PO BEDTIME buspirone 10 mg tablet 10 mg PO TID venlafaxine 75 mg capsule,extended release 24hr 75 mg PO DAILY metoprolol tartrate 25 mg tablet 25 mg PO BID Rx Instructions: Hold: Diastolic Blood Pressure <50, pulse is <50. Systolic Blood Pressure is <100 omeprazole 20 mg capsule,delayed release(DR/EC) 20 mg PO DAILY mirtazapine 30 mg tablet 30 mg PO DAILY tamsulosin 0.4 mg capsule 0.4 mg PO DAILY albuterol sulfate 2.5 mg /3 mL (0.083 %) solution for nebulization 2.5 mg inhalation Q4H PRN (Reason: shortness of breath) citalopram 10 mg tablet 20 mg PO DAILY cetirizine 5 mg tablet 5 mg PO DAILY ferrous sulfate 325 mg (65 mg iron) tablet 325 mg PO DAILY lorazepam 1 mg tablet 1 mg PO Q6H PRN (Reason: Anxiety) hydrocodone-acetaminophen 5-325 mg tablet 1 tab PO Q8H PRN (Reason: Moderate Pain (Scale Score 5-6)) polyethylene glycol 3350 [Miralax] 17 gram Powder In Packet 17 g PO DAILY PRN (Reason: Constipation) acetaminophen [Mapap Arthritis Pain] 650 mg Tablet Extended Release 650 mg PO Q12H bisacodyl 10 mg Suppository 10 mg VA DAILY PRN (Reason: Constipation) Enema Disposable 19-7 gram/118 mL Enema 118 ml VA PRN PRN (Reason: Constipation) montelukast 10 mg tablet 10 mg PO DAILY insulin glargine [Jodieaglernestina Walsh U-100 Insulin] 100 unit/mL (3 mL) insulin pen 60 unit SUBCUT BEDTIME Novolog U-100 Insulin aspart 100 unit/mL Solution 8 unit SUBCUT .PER SLIDING SCALE benzonatate 100 mg Capsule 100 mg PO TID PRN (Reason: Cough) Qty: 90 0RF ipratropium-albuterol 0.5 mg-3 mg(2.5 mg base)/3 mL solution for nebulization 3 ml inhalation QID PRN (Reason: Shortness Of Breath Or Wheezing) Qty: 15 0RF Trelegy Ellipta 100-62.5-25 mcg Blister With Device 1 inh INHALATION DAILY Qty: 2 0RF Discharge Orders: Discharge ED (Routine); Ordered 09/25/22 Ordered By: Rell Chen Referrals: Alfredito Muro DO [Primary Care Provider] - 1-3 days Discharge Diet: Advance as tolerated Discharge Activity: Resume usual activity Patient Instructions: Depression (ED) Coding Level of Care Code ED Farm Agent for Bjg Fwd Exam Comprehensive
[2022-09-25 15:13] VITALS: BP 127/70; PULSE 87; RESP 17; O2SAT 93
[2022-09-25 15:32] VITALS: BP 134/77; PULSE 74; RESP 16; O2SAT 98
[2022-09-25 15:45] LABS: Basophils # 0.1 10^3/uL (0.0-0.1); Basophils % 0.4 %; Eosinophils # 0.2 10^3/uL (0.0-0.8); Eosinophils % 1.2 %; Hematocrit 43.9 % (42.0-52.0); Hemoglobin 13.1 g/dL (11.7-16.6); Lymphocytes # 2.2 10^3/uL (0.8-4.8); Lymphocytes % 13.2 %; Mean Corpuscular HGB Conc 29.8 g/dL (30.0-36.0); Mean Corpuscular Hemoglobin 24.1 pg (28.0-34.0); Mean Corpuscular Volume 80.7 fl (80-94); Mean Platelet Volume 9.3 fL (7.4-10.4); Monocytes # 1.5 10^3/uL (0.2-0.9); Monocytes % 8.7 %; Neutrophils # 12.62 10^3/uL (1.8-7.7); Nucleated Red Blood Cells % 0 %; Platelet Count 377 10^3/cmm (130-400); Red Blood Count 5.44 10^6/uL (4.1-5.3); White Blood Count 16.6 10^3/uL (4.0-10.0)
[2022-09-25 16:03] LABS: Acetaminophen < 5.0 ug/mL (10-30); Alanine Aminotransferase 15 U/L (0-41); Albumin Level 3.7 g/dL (3.5-5.2); Alcohol Level < 10 mg/dL (0-10); Alkaline Phosphatase 137 U/L (40-130); Anion Gap 14.9 (5-19); Aspartate Amino Transferase 13 U/L (0-40); Blood Urea Nitrogen 29 mg/dL (8-23); Carbon Dioxide 29 mmol/L (22-29); Chloride 94 mmol/L (98-107); Globulin 4.9 g/dL (1.3-4.6); Glomerular Filtration Rate 40.7 mL/min (90-130); Glucose 152 mg/dL (65-115); Osmolality Calculated 285 mOsm/kg (285-295); Potassium 4.9 mmol/L (3.5-5.1); Salicylate < 0.3 mg/dL (3-10); Sodium 133 mmol/L (136-145); Total Bilirubin 0.3 mg/dL (0.15-1.2); Total Protein 8.6 g/dL (6.6-8.7)
--- NOTE | 2022-09-25 16:58 | PC.NURSE ---
called [facility] gave return report, medicaid transport requested
[2022-09-25 18:49] VITALS: BP 141/84; PULSE 84
[2022-09-25 19:08] VITALS: PULSE 90; RESP 17; O2SAT 99
== END 2022-09-25 22:48 | disposition home or self-care (01) ==
PROVIDERS: Emergency Provider Emergency Medicine; PCP Internal Medicine
DX: F32.A Depression, unspecified (principal); Z79.82 Long term (current) use of aspirin; Z79.4 Long term (current) use of insulin; F17.210 Nicotine dependence, cigarettes, uncomplicated; Z95.5 Presence of coronary angioplasty implant and graft; I25.10 Atherosclerotic heart disease of native coronary artery without angina pectoris; I12.9 Hypertensive chronic kidney disease with stage 1 through stage 4 chronic kidney disease, or unspecified chronic kidney disease; E11.22 Type 2 diabetes mellitus with diabetic chronic kidney disease; N18.9 Chronic kidney disease, unspecified; Z99.81 Dependence on supplemental oxygen
CPT/HCPCS: 36415; 80053; 80307; 85025; 99283

== ENCOUNTER 2023-02-18 22:45 | Inpatient (IN) | payer MEDICARE, MEDICAID, SELFPAY ==
[2023-02-18 22:47] VITALS: BP 127/66; PULSE 95; RESP 28; TEMP 37.2; O2SAT 82; BMI 33.4
--- NOTE | 2023-02-18 22:50 | XRR_ITS ---
PROCEDURE INFORMATION: Exam: XR Chest Exam date and time: 02/18/2023 11:21 PM Age: 67 years old Clinical indication: Shortness of breath; Additional info: SOB TECHNIQUE: Imaging protocol: Radiologic exam of the chest. Views: 1 view. COMPARISON: CT chest con [id number] 05/20/2022 3:17 PM FINDINGS: Lungs: Emphysematous changes. Bibasilar atelectasis versus infiltrate. Pleural spaces: Trace bilateral right greater than left pleural effusions. Heart/Mediastinum: Unremarkable. No cardiomegaly. Bones/joints: Unremarkable. XR/XR chest 1V portable [id number] IMPRESSION: 1. Trace bilateral right greater than left pleural effusions. 2. Emphysematous changes. 3. Bibasilar atelectasis versus infiltrate.
--- NOTE | 2023-02-18 22:51 | ECG_ITS ---
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 Measurements Intervals [place] Rate: 91 P: 0 VA: 0 QRS: 89 QRSD: 93 T: 50 QT: 319 QTc: 394 Interpretive Statements SINUS RHYTHM Compared to ECG 04/05/2022 11:39:54 No changes Electronically Signed On 02-19-2023 10:24:25 CDT by Jw Guillory M.D. [email or web address] healthInnoCyteohio[facility].[employer]/store/NU/[id number] f
--- NOTE | 2023-02-18 22:51 | ED_ITS ---
HPI - SOB/Dyspnea General: Chief Complaint: Shortness of Breath/Dyspnea Stated Complaint: SOB Time Seen by Provider: 02/18/23 22:50 History of Present Illness: HPI Narrative: Mr. Pike is a 67-year-old gentleman with significant past medical history of CAD, CKD, COPD, diabetes, chronic hypoxic respiratory failure presenting to the emergency department for respiratory distress. He notes worsening symptoms after an argument with one of the nurses. Denies associated chest pain. Mild occasional productive cough. Denies fevers. EMS found the patient in respiratory distress oxygen saturations on his baseline 4 L of oxygen in the 70s associated with tachypnea. Prehospital 125 Solu-Medrol, 2 times albuterol, 1 times DuoNeb with some improvement though patient quickly desats without nonrebreather mask. No other specific changes in health, exacerbating, or alleviating factors identified. Onset (ago): minute(s) Context: anxiety Timing: constant Severity: moderate Known history of: COPD Associated symptoms: Reports no associated symptoms Review of Systems General: Reports: 10 or more systems reviewed and unremarkable except in HPI and below PFSH ED PFSH: Medical History Anxiety disorder CAD (coronary artery disease) CKD (chronic kidney disease) COPD (chronic obstructive pulmonary disease) COVID-19 vaccine dose not administered Diabetes mellitus GERD (gastroesophageal reflux disease) Gout Hypertension Mediastinal adenopathy On home oxygen therapy Usually on 2 L by nasal cannula Pneumonia Positive DENY (antinuclear antibody) Prostatic hypertrophy PVD (peripheral vascular disease) Skin cancer Specific type unknown Tobacco use Surgical History History of cholecystectomy History of coronary artery stent placement X2 History of skin surgery Left neck for skin cancer Presence of coronary angioplasty implant and graft Family History Mother Cancer Father CAD (coronary artery disease) Social History Smoking and tobacco status: current some day smoker cigarettes Years cigarettes smoked: 60 Quit status (tobacco): not considering quitting Second hand smoke exposure: Yes Alcohol intake: former Substance/Drug Use: never Caregiver/support person: Yes Lives independently: No Housing: Prison Marital status: / service: No Current occupational status: disabled Pets and animals: Yes Do you think of yourself as: Straight/Heterosexual Current gender identity: Male Physical Exam Const: COMMON NORMALS: alert GENERAL APPEARANCE: cooperative and well developed HENMT: COMMON NORMALS: normocephalic and atraumatic HEAD & SCALP: normocephalic and atraumatic Eye: COMMON NORMALS: conjunctivae normal CONJUNCTIVA: Yes conjunctivae normal SCLERA: sclerae normal Neck/C-Spine: COMMON NORMALS: supple GENERAL: Yes trachea midline Resp: EFFORT & INSPECTION: Yes tachypneic AUSCULTATION: diminished lung sounds Cardio: COMMON NORMALS: regular rate and regular rhythm RATE: regular rate RHYTHM: regular rhythm GI: COMMON NORMALS: Soft to palpation PALPATION: Yes Soft to palpation and No Tenderness to palpation present (GI) Extremity: GENERAL: Yes normal exam except as noted and No edema Neuro: COMMON NORMALS: moves all extremities SENSORIUM/ORIENTATION: Yes jake rt and No Orientation impaired Psych: COMMON NORMALS: mental status grossly normal and Normal thought process present THOUGHT PROCESS: Normal thought process present Course Vital Signs: Vital signs: Vital Signs Temperature 98.0 F 02/24/23 11:25 Pulse Rate 79 02/24/23 14:28 Respiratory Rate 18 02/24/23 14:28 Blood Pressure 147/86 02/24/23 11:25 Pulse Oximetry 96 02/24/23 14:28 Oxygen Delivery Me thod Nasal Cannula 02/24/23 13:40 Oxygen Flow Rate 4 02/24/23 13:40 Fraction of Inspir ed Oxygen 35 02/21/23 06:00 MDM - SOB/Dyspnea Medical Decision Making 67-year-old gentleman with complex history presenting due to respiratory distress. Patient is tachypneic on exam and requiring greater than normal supplemental oxygen. EKG demonstrates sinus rhythm with normal axis and intervals, no STEMI. Labs with leukocytosis, normal hemoglobin and platelet count. Metabolic panel with hyponatremia and hyperkalemia as well as elevated creatinine above baseline. Initial lactic acid elevated with repeat pending at time of admission. ABG demonstrates hypercapnic respiratory failure. BiPAP. Chest x-ray with emphysematous changes, no lobar consolidation or pneumothorax. Patient treated with DuoNeb, albuterol, antibiotics for community-acquired pneumonia, IV fluids. Most likely etiology of symptoms is multifactorial including possible pneumonia with exacerbation of COPD. The results of ED evaluation were discussed with the patient including plan for admission due to requirement for level of care not available if discharged to prevent significant worsening/deterioration. Patient agreeable with plan. Discussed with hospitalist service who was agreeable to admit patient. Medical Records I reviewed the patient's medical records. Lab Data I reviewed the patient's lab results. 02/24/23 06:06 02/24/23 06:06 Labs/Radiology: Radiology Impressions Chest X-Ray 02/18/23 22:50 IMPRESSION: 1. Trace bilateral right greater than left pleural effusions. 2. Emphysematous changes. 3. Bibasilar atelectasis versus infiltrate. Chest CT 02/19/23 09:49 IMPRESSION: 1. Extensive lower lobe airway changes with diffuse bronchiectasis, bronchiolitis and peribronchial consolidation/fibrosis overall not significantly changed in overall severity from previous examination. 2. Stable irregular subpleural densities right lung believed secondary to chronic subsegmental atelectasis and scarring. 3. COPD with diffuse upper lobe emphysematous changes, stable. 4. Mild mediastinal lymphadenopathy, unchanged favoring benign etiology. Follow-up as clinically indicated. COMMENTS: In the absence of a history or active diagnosis of lung cancer, it is recommended that this patient with emphysema be evaluated for enrollment in a low dose CT lung cancer screening program. Laboratory Results WBC 22.5 10^3/uL (4.0-10.0) H 02/18/23 22:55 RBC 5.28 10^6/uL (4.1-5.3) 02/18/23 22:55 Hgb 12.2 g/dL (11.7-16.6) 02/18/23 22:55 Hct 42.4 % (42.0-52.0) 02/18/23 22:55 MCV 80.3 fl (80-94) 02/18/23 22:55 MCH 23.1 pg (28.0-34.0) L 02/18/23 22:55 MCHC 28.8 g/dL (30.0-36.0) L 02/18/23 22:55 RDW 16.2 % (12.1-15.1) H 02/18/23 22:55 Plt Count 388 10^3/cmm (130-400) 02/18/23 22:55 MPV 9.3 fL (7.4-10.4) 02/18/23 22:55 Neut % (Auto) 82.5 % 02/18/23 22:55 Lymph % (Auto) 8.2 % 02/18/23 22:55 [place] % (Auto) 7.9 % 02/18/23 22:55 Eos % (Auto) 0.6 % 02/18/23 22:55 Baso % (Auto) 0.3 % 02/18/23 22:55 Neut # (Auto) 18.50 10^3/uL (1.8-7.7) H 02/18/23 22:55 Lymph # (Auto) 1.8 10^3/uL (0.8-4.8) 02/18/23 22:55 [place] # (Auto) 1.8 10^3/uL (0.2-0.9) H 02/18/23 22:55 Eos # (Auto) 0.1 10^3/uL (0.0-0.8) 02/18/23 22:55 Baso # (Auto) 0.1 10^3/uL (0.0-0.1) 02/18/23 22:55 Nucleated RBC % (auto) 0 % 02/18/23 22:55 Nucleated RBCs # 0.0 /100WBC 02/18/23 22:55 D-Dimer 0.77 ug/mIFEU (0-0.59) H 02/18/23 22:55 Specimen Type Arterial 02/18/23 22:55 Sample Site Brachial, right 02/18/23 22:55 ABG pH 7.33 (7.35-7.45) L 02/18/23 22:55 ABG pCO2 60.4 mmHg (35-45) H* 02/18/23 22:55 ABG pO2 63.9 mmHg (80.0-100.0) L 02/18/23 22:55 ABG HCO3 32.1 mmol/L (22-26) H 02/18/23 22:55 ABG Base Excess 4.6 mmol/L (-2.0-2.0) H 02/18/23 22:55 Baldo Test Pos 02/18/23 22:55 Hematocrit 39.2 % (42-52) L 02/18/23 22:55 Hgb O2 Saturation 91.3 % (95-100) L 02/18/23 22:55 Carboxyhemoglobin 1.5 %THgb (0.4-20.1) 02/18/23 22:55 Methemoglobin 0.5 % (0.4-1.5) 02/18/23 22:55 Total Hemoglobin 12.8 g/dL (14-18) L 02/18/23 22:55 O2 Delivery Device Nrb 02/18/23 22:55 O2 Liters/Min 15.0 % 02/18/23 22:55 FiO2 99.0 % 02/18/23 22:55 Head Up Operator Helper ID [id number] 02/18/23 22:55 Sodium 131 mmol/L (136-145) L 02/18/23 22:55 Potassium 5.5 mmol/L (3.5-5.1) H 02/18/23 22:55 Chloride 92 mmol/L (98-107) L 02/18/23 22:55 Carbon Dioxide 29 mmol/L (22-29) 02/18/23 22:55 Anion Gap 15.5 (5-19) 02/18/23 22:55 BUN 34 mg/dL (8-23) H 02/18/23 22:55 Creatinine 1.5 mg/dL (0.7-1.2) H 02/18/23 22:55 GFR Calculation 47.0 mL/min (90-130) L 02/18/23 22:55 Glucose 273 mg/dL (65-115) H 02/18/23 22:55 Calculated Osmolality 289 mOsm/kg (285-295) 02/18/23 22:55 Lactic Acid 2.4 mmol/L (0.5-2.2) H 02/18/23 22:55 Calcium 8.3 mg/dL (8.5-10.5) L 02/18/23 22:55 Total Bilirubin 0.4 mg/dL (0.15-1.2) 02/18/23 22:55 AST 12 U/L (0-40) 02/18/23 22:55 ALT 21 U/L (0-41) 02/18/23 22:55 Alkaline Phosphatase 117 U/L (40-130) 02/18/23 22:55 Troponin T Baseline 39 ng/L (0-15) H 02/18/23 22:55 NT-Pro-B Natriuret Pep 322 pg/mL (0-125) H 02/18/23 22:55 Total Protein 8.0 g/dL (6.6-8.7) 02/18/23 22:55 Albumin 3.0 g/dL (3.5-5.2) L 02/18/23 22:55 Globulin 5.0 g/dL (1.3-4.6) H 02/18/23 22:55 Nasal Influ A H1 2009 PCR Not detected (NOT DETECT) 02/18/23 22:55 Adenovirus (PCR) Not detected (NOT DETECT) 02/18/23 22:55 C. pneumoniae DNA (PCR) Not detected (NOT DETECT) 02/18/23 22:55 Coronavirus 229E (PCR) Not detected (NOT DETECT) 02/18/23 22:55 Human Metapneumovir PCR Not detected (NOT DETECT) 02/18/23 22:55 Influenza A (H1) PCR Not detected (NOT DETECT) 02/18/23 22:55 Influenza A (H3) PCR Not detected (NOT DETECT) 02/18/23 22:55 Influenza Type A (PCR) Not detected (NOT DETECT) 02/18/23 22:55 Influenza Type B (PCR) Not detected (NOT DETECT) 02/18/23 22:55 M. pneumoniae (PCR) Not detected (NOT DETECT) 02/18/23 22:55 Parainfluenza 1 (PCR) Not detected (NOT DETECT) 02/18/23 22:55 Parainfluenza 2 (PCR) Not detected (NOT DETECT) 02/18/23 22:55 Parainfluenza 3 (PCR) Not detected (NOT DETECT) 02/18/23 22:55 Parainfluenza 4 (PCR) Not detected (NOT DETECT) 02/18/23 22:55 RSV Type A (PCR) Not detected (NOT DETECT) 02/18/23 22:55 RSV Type B (PCR) Not detected (NOT DETECT) 02/18/23 22:55 Entero/Rhino (PCR) Not detected (NOT DETECT) 02/18/23 22:55 SARS-CoV-2 (PCR) Not detected (NOT DETECT) 02/18/23 22:55 Discharge Plan Discharge Patient Disposition: Admitted As Inpatient Admit Provider: Antonia Naranjo Clinical Impression: Acute exacerbation of chronic obstructive airways disease, Respiratory failure, acute and chronic, SIRS (systemic inflammatory response syndrome), Pneumonia Condition: Stable Discharge Diet: Diabetic Discharge Activity: Resume usual activity Coding Level of Care Code 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
[2023-02-18 23:02] VITALS: PULSE 93; RESP 30; O2SAT 95
[2023-02-18 23:06] LABS: ABG PH Result 7.33 (7.35-7.45); Arterial Blood Gas Hematocrit 39.2 % (42-52); Base Excess ABG 4.6 mmol/L (-2.0-2.0); Blood Gas Allen Test Pos; Blood Gas Sample Site Brachial, right; Blood Gas Sample Type Arterial; Carboxyhemoglobin 1.5 %THgb (0.4-20.1); HCO3 ABG 32.1 mmol/L (22-26); HGB O2 Sat 91.3 % (95-100); Methemoglobin 0.5 % (0.4-1.5); Oxygen Device NRB; PO2 ABG 63.9 mmHg (80.0-100.0); Total Hemoglobin 12.8 g/dL (14-18)
[2023-02-18 23:07] LABS: ABG PCO2 60.4 mmHg (35-45)
[2023-02-18 23:13] LABS: Basophils # 0.1 10^3/uL (0.0-0.1); Basophils % 0.3 %; Eosinophils # 0.1 10^3/uL (0.0-0.8); Eosinophils % 0.6 %; Hematocrit 42.4 % (42.0-52.0); Hemoglobin 12.2 g/dL (11.7-16.6); Lymphocytes # 1.8 10^3/uL (0.8-4.8); Lymphocytes % 8.2 %; Mean Corpuscular HGB Conc 28.8 g/dL (30.0-36.0); Mean Corpuscular Hemoglobin 23.1 pg (28.0-34.0); Mean Corpuscular Volume 80.3 fl (80-94); Mean Platelet Volume 9.3 fL (7.4-10.4); Monocytes # 1.8 10^3/uL (0.2-0.9); Monocytes % 7.9 %; Neutrophils % 82.5 %; Nucleated Red Blood Cells % 0 %; Platelet Count 388 10^3/cmm (130-400); Red Blood Count 5.28 10^6/uL (4.1-5.3); Red Cell Distribution Width 16.2 % (12.1-15.1); White Blood Count 22.5 10^3/uL (4.0-10.0)
[2023-02-18 23:18] VITALS: PULSE 90; PULSE 94; RESP 40; RESP 43; O2SAT 95
[2023-02-18] MEDS: ipratropium-albuterol 3 mL Neb INHALATION (23:18)
[2023-02-18 23:20] LABS: Lactic Sepsis W/Reflex 2.4 mmol/L (0.5-2.2)
[2023-02-18 23:23] LABS: Troponin(5th) Baseline 39 ng/L (0-15)
[2023-02-18 23:31] LABS: Alanine Aminotransferase 21 U/L (0-41); Alkaline Phosphatase 117 U/L (40-130); Anion Gap 15.5 (5-19); Aspartate Amino Transferase 12 U/L (0-40); Blood Urea Nitrogen 34 mg/dL (8-23); Calcium 8.3 mg/dL (8.5-10.5); Carbon Dioxide 29 mmol/L (22-29); Chloride 92 mmol/L (98-107); Glucose 273 mg/dL (65-115); NT Pro B Type Natriuretic Pept 322 pg/mL (0-125); Osmolality Calculated 289 mOsm/kg (285-295); Potassium 5.5 mmol/L (3.5-5.1); Sodium 131 mmol/L (136-145); Total Bilirubin 0.4 mg/dL (0.15-1.2)
[2023-02-18] MEDS: cefTRIAXone 1,000 MG in sodium chloride 0.9% (plus) 50 ML 100 MG IV (23:38)
[2023-02-18] MEDS: albuterol 2.5 mg/3 mL Neb INHALATION (23:45)
[2023-02-18 23:46] VITALS: PULSE 90; RESP 33; O2SAT 96
[2023-02-19] VITALS (41 sets, daily range): BP systolic 91–140; BP diastolic 52–85; PULSE 60–100; RESP 18–40; TEMP 36.1–37.4; O2SAT 93–98
[2023-02-19] MEDS: doxycycline 100 MG in sodium chloride 0.9% (plus) 100 ML IV (00:17)
[2023-02-19 00:50] LABS: Reflex Lactate Order REFLEX LACTIC ORDERD
--- NOTE | 2023-02-19 00:51 | ECG_ITS ---
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 Measurements Intervals [place] Rate: 89 P: 63 WV: 231 QRS: 85 QRSD: 90 T: 41 QT: 343 QTc: 419 Interpretive Statements SINUS RHYTHM WITH FIRST DEGREE AV BLOCK Compared to ECG 02/18/2023 22:55:28 First degree AV block now present Atrial fibrillation no longer present Electronically Signed On 02-19-2023 10:25:25 CDT by Jw Guillory M.D. [email or web address] and Associatesnorthport medical centerInfinium Metalsbarney children's medical center.[employer]/store/OM/[id number]
[2023-02-19 01:11] LABS: Adenovirus Not Detected (NOT DETECT); Chlamydia Pneumoniae Not Detected (NOT DETECT); Coronavirus 229E,HKU1,NL63,OC4 Not Detected (NOT DETECT); Human Metapneumovirus Not Detected (NOT DETECT); Human Rhinovirus/Enterovirus Not Detected (NOT DETECT); Influenza A Not Detected (NOT DETECT); Influenza A H1 Not Detected (NOT DETECT); Influenza A H1-2009 Not Detected (NOT DETECT); Influenza A H3 Not Detected (NOT DETECT); Influenza B Not Detected (NOT DETECT); Mycoplasma Pneumoniae Not Detected (NOT DETECT); Parainfluenza Virus Type 1 Not Detected (NOT DETECT); Parainfluenza Virus Type 2 Not Detected (NOT DETECT); Parainfluenza Virus Type 3 Not Detected (NOT DETECT); Parainfluenza Virus Type 4 Not Detected (NOT DETECT); Respiratory Syncytial Virus A Not Detected (NOT DETECT); Respiratory Syncytial Virus B Not Detected (NOT DETECT); SARS-COV-2 Not Detected (NOT DETECT)
[2023-02-19 01:23] LABS: Troponin 5 2HR 39.05 ng/L (0-15)
[2023-02-19 01:24] LABS: Lactic Acid level (Lactate) 2.5 mmol/L (0.5-2.2)
[2023-02-19 01:25] LABS: Troponin 5 2HR Delta 0.05 ABS# (0-10)
[2023-02-19 01:37] LABS: D Dimer 0.77 ug/mIFEU (0-0.59)
--- NOTE | 2023-02-19 02:37 | P.HP_ITS ---
Providers/Chief Complaint Admitting Physician: Antonia Naranjo MD Primary Care Provider: Alfredito Muro DO Chief Complaint: SOB History of Present Illness Marlo Gleason is a 67 year old male with PMH anemia, anxiety, COPD, CAD, CKD, GERD, hyperlipidemia, diabetes. He presnts today with c/o increased cough and dyspnea over the past 4-5 days. 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 he was found to be in respiratory distress upon ER arrival ans placed on Bipap. Denies any fever. ROS oherwise limited due to patient being on continuous Bipap Review of Systems General: Reports: 10 or more systems reviewed and unremarkable except in HPI and below Const: Denies: fever(s), chills or body aches Eyes: Denies: change in vision, blurry vision or photophobia ENMT: Reports: hoarseness; Denies: throat pain, enlarged tonsils, odynophagia or nasal congestion Card: Denies: chest pain, palpitations, irregular heart rhythm, edema, swelling of feet/ankles, lightheadedness, pre-syncope, dyspnea on exertion or orthopnea Resp: Denies: dyspnea, productive cough, non-productive cough, wheezing, stridor, pain on inspiration, change in phlegm color, hemoptysis or chest congestion GI: Denies: abdominal pain, nausea, vomiting, hematemesis, coffee ground emesis, dysphagia, heartburn, diarrhea, constipation, GI cramping, change in stool character, hematochezia or melena : Denies: flank pain, dysuria, urinary frequency, urinary urgency, urinary hesitancy or hematuria Musc: Denies: neck pain, back pain, extremity pain, joint swelling, joint warmth or deformity Neuro: Denies: headache(s), numbness in extremities, weakness in extremities, sensory changes, difficulty walking, frequent falls, dizziness, vertigo, behavioral changes, Slurred speech present or seizure-like activity Psych: Denies: anxiety, depression, suicidal ideation or homicidal ideation Endo: Denies: polyuria, polydipsia, tired all the time, cold intolerance or hot flashes Gabe/Lymph: Denies: easy bruising or easy bleeding Medications/Allergies Home Medications Medication Instructions Recorded Confirmed Last Taken Type albuterol sulfate 2.5 mg/3 mL 2.5 mg inhalation Q4H PRN 01/21/21 02/19/23 Unknown History (0.083 %) solution for nebulization shortness of breath aspirin 81 mg tablet,delayed 81 mg PO DAILY 01/21/21 02/19/23 Unknown History release (Adult Low Dose Aspirin) atorvastatin 40 mg tablet 40 mg PO BEDTIME 01/21/21 02/19/23 Unknown History buspirone 10 mg tablet 10 mg PO TID 01/21/21 02/19/23 Unknown History cetirizine 5 mg tablet 5 mg PO DAILY 01/21/21 02/19/23 Unknown History citalopram 10 mg tablet 20 mg PO DAILY 01/21/21 02/19/23 Unknown History ferrous sulfate 325 mg (65 mg 325 mg PO DAILY 01/21/21 02/19/23 Unknown History iron) tablet hydrocodone 5 mg-acetaminophen 325 1 tab PO Q8H PRN Moderate Pain 01/21/21 02/19/23 Unknown History mg tablet (Scale Score 5-6) metoprolol tartrate 25 mg tablet 25 mg PO BID 01/21/21 02/19/23 Unknown History mirtazapine 30 mg tablet 15 mg PO DAILY 01/21/21 02/19/23 Unknown History omeprazole 20 mg capsule,delayed 20 mg PO DAILY 01/21/21 02/19/23 Unknown History release tamsulosin 0.4 mg capsule 0.4 mg PO BEDTIME 01/21/21 02/19/23 Unknown History venlafaxine 75 mg capsule,extended 75 mg PO DAILY 01/21/21 02/19/23 Unknown History release 24 hr acetaminophen 650 mg 650 mg PO Q6H PRN pain 05/08/21 02/19/23 Unknown History tablet,extended release (Mapap Arthritis Pain) bisacodyl 10 mg rectal suppository 10 mg WA DAILY PRN Constipation 05/08/21 02/19/23 Unknown History polyethylene glycol 3350 17 gram 17 g PO DAILY PRN Constipation 05/08/21 02/19/23 Unknown History oral powder packet (Miralax) sodium phosphates 19 gram-7 118 ml WA PRN PRN Constipation 05/08/21 02/19/23 Unknown History gram/118 mL enema (Enema Disposable) insulin aspart U-100 100 unit/mL 14 unit SUBCUT AC 04/04/22 02/19/23 Unknown History subcutaneous solution (Novolog U-100 Insulin aspart) insulin glargine 100 unit/mL (3 68 unit SUBCUT BEDTIME 04/04/22 02/19/23 Unknown History mL) subcutaneous pen (Basaglar KwikPen U-100 Insulin) montelukast 10 mg tablet 10 mg PO DAILY 04/04/22 02/19/23 Unknown History benzonatate 100 mg capsule 100 mg PO TID PRN Cough #90 caps 04/09/22 02/19/23 Unknown Rx budesonide 0.25 mg/2 mL suspension 0.25 mg inhalation 2XD 02/19/23 02/19/23 Unknown History for nebulization (Pulmicort) guaifenesin 600 mg tablet, 600 mg PO Q12H 02/19/23 02/19/23 Unknown History extended release 12 hr ipratropium bromide 0.02 % 2.5 ml inhalation QID 02/19/23 02/19/23 Unknown History solution for inhalation nicotine 7 mg/24 hr daily 1 patch transdermal Q24H 02/19/23 02/19/23 Unknown History transdermal patch Allergies Allergy/AdvReac Type Severity Reaction Status Date / Time No Known Allergies Allergy Verified 04/26/22 14:49 PFSH Acute PFSH: Medical History Anxiety disorder CAD (coronary artery disease) CKD (chronic kidney disease) COPD (chronic obstructive pulmonary disease) COVID-19 vaccine dose not administered Diabetes mellitus GERD (gastroesophageal reflux disease) Gout Hypertension Mediastinal adenopathy On home oxygen therapy Usually on 2 L by nasal cannula Pneumonia Positive DENY (antinuclear antibody) Prostatic hypertrophy PVD (peripheral vascular disease) Skin cancer Specific type unknown Tobacco use Surgical History History of cholecystectomy History of coronary artery stent placement X2 History of skin surgery Left neck for skin cancer Presence of coronary angioplasty implant and graft Family History Mother Cancer Father CAD (coronary artery disease) Social History Smoking and tobacco status: current some day smoker cigarettes Years cigarettes smoked: 60 Quit status (tobacco): not considering quitting Second hand smoke exposure: Yes Alcohol intake: former Substance/Drug Use: never Caregiver/support person: Yes Lives independently: No Housing: Alf Marital status: / service: No Current occupational status: disabled Pets and animals: Yes Do you think of yourself as: Straight/Heterosexual Current gender identity: Male Vitals/I&O/Wt Last Vital Signs Temp 99.0 F 02/18/23 22:47 Pulse 95 02/19/23 02:01 Resp 32 H 02/19/23 00:30 BP 124/73 02/19/23 00:30 Pulse Ox 95 02/19/23 02:01 O2 Del Method BiPAP 02/19/23 02:12 FiO2 50 02/19/23 02:01 02/18/23 02/18/23 02/19/23 14:59 22:59 06:59 Intake Total 2201 / 2201 Balance 2201 / 2201 Weight last 48 hrs Weight 99.79 kg Physical Exam Narrative: General: No acute distress, AO x3 HEENT: PERRLA, pupils bilaterally equal and reactive, pallors not present Chest: Normal vesicular breath sounds, no added sounds, equal good air entry bilaterally CVS: S1-S2 regular, no murmurs, no tachycardia, no gallops, no rubs Abdomen: Soft, nontender, no organomegaly, bowel sounds present Neuro: No focal deficits, no facial deformity, AO x3, power 5/5 in all limbs Data 02/18/23 22:55 02/19/23 04:40 Micro: Microbiology 02/18/23 23:06 Blood Culture - Preliminary Blood SPECIMEN COLLECTED 02/18/23 23:03 Blood Culture - Preliminary Blood SPECIMEN COLLECTED Other data: Radiology Impressions Chest X-Ray 02/18/23 22:50 IMPRESSION: 1. Trace bilateral right greater than left pleural effusions. 2. Emphysematous changes. 3. Bibasilar atelectasis versus infiltrate. Laboratory Results WBC 22.5 10^3/uL (4.0-10.0) H 02/18/23 22:55 RBC 5.28 10^6/uL (4.1-5.3) 02/18/23 22:55 Hgb 12.2 g/dL (11.7-16.6) 02/18/23 22:55 Hct 42.4 % (42.0-52.0) 02/18/23 22:55 MCV 80.3 fl (80-94) 02/18/23 22:55 MCH 23.1 pg (28.0-34.0) L 02/18/23 22:55 MCHC 28.8 g/dL (30.0-36.0) L 02/18/23 22:55 RDW 16.2 % (12.1-15.1) H 02/18/23 22:55 Plt Count 388 10^3/cmm (130-400) 02/18/23 22:55 MPV 9.3 fL (7.4-10.4) 02/18/23 22:55 Neut % (Auto) 82.5 % 02/18/23 22:55 Lymph % (Auto) 8.2 % 02/18/23 22:55 [place] % (Auto) 7.9 % 02/18/23 22:55 Eos % (Auto) 0.6 % 02/18/23 22:55 Baso % (Auto) 0.3 % 02/18/23 22:55 Neut # (Auto) 18.50 10^3/uL (1.8-7.7) H 02/18/23 22:55 Lymph # (Auto) 1.8 10^3/uL (0.8-4.8) 02/18/23 22:55 [place] # (Auto) 1.8 10^3/uL (0.2-0.9) H 02/18/23 22:55 Eos # (Auto) 0.1 10^3/uL (0.0-0.8) 02/18/23 22:55 Baso # (Auto) 0.1 10^3/uL (0.0-0.1) 02/18/23 22:55 Nucleated RBC % (auto) 0 % 02/18/23 22:55 Nucleated RBCs # 0.0 /100WBC 02/18/23 22:55 D-Dimer 0.77 ug/mIFEU (0-0.59) H 02/18/23 22:55 Specimen Type Arterial 02/19/23 08:02 Sample Site Brachial, left 02/19/23 08:02 ABG pH 7.29 (7.35-7.45) L 02/19/23 08:02 ABG pCO2 58.2 mmHg (35-45) H 02/19/23 08:02 ABG pO2 78.9 mmHg (80.0-100.0) L 02/19/23 08:02 ABG HCO3 27.8 mmol/L (22-26) H 02/19/23 08:02 ABG Base Excess 0.2 mmol/L (-2.0-2.0) 02/19/23 08:02 Baldo Test N/a 02/19/23 08:02 Hematocrit 35.4 % (42-52) L 02/19/23 08:02 Hgb O2 Saturation 91.3 % (95-100) L 02/18/23 22:55 Carboxyhemoglobin 1.5 %THgb (0.4-20.1) 02/18/23 22:55 Methemoglobin 0.5 % (0.4-1.5) 02/18/23 22:55 Total Hemoglobin 12.8 g/dL (14-18) L 02/18/23 22:55 O2 Delivery Device Bipap 02/19/23 08:02 O2 Liters/Min 15.0 % 02/18/23 22:55 FiO2 35.0 % 02/19/23 08:02 Web Development Manager ID Gd 02/19/23 08:02 Sodium 132 mmol/L (136-145) L 02/19/23 04:40 Potassium 5.8 mmol/L (3.5-5.1) H 02/19/23 04:40 Chloride 96 mmol/L (98-107) L 02/19/23 04:40 Carbon Dioxide 24 mmol/L (22-29) 02/19/23 04:40 Anion Gap 17.8 (5-19) 02/19/23 04:40 BUN 35 mg/dL (8-23) H 02/19/23 04:40 Creatinine 1.5 mg/dL (0.7-1.2) H 02/19/23 04:40 GFR Calculation 47.0 mL/min (90-130) L 02/19/23 04:40 Glucose 323 mg/dL (65-115) H 02/19/23 04:40 POC Glucose 346 mg/dL (70-110) H 02/19/23 08:23 Calculated Osmolality 294 mOsm/kg (285-295) 02/19/23 04:40 Lactic Acid 2.4 mmol/L (0.5-2.2) H 02/18/23 22:55 Lactic Acid (Sepsis) 2.5 mmol/L (0.5-2.2) H 02/19/23 00:58 Calcium 7.5 mg/dL (8.5-10.5) L 02/19/23 04:40 Iron 11 ug/dL (59-158) L 02/19/23 04:40 TIBC 156 mcg/dl 02/19/23 04:40 % Saturation 7.0 % (20-50) L 02/19/23 04:40 Unsat Iron Binding 145 ug/dL (112-347) 02/19/23 04:40 Total Bilirubin 0.3 mg/dL (0.15-1.2) 02/19/23 04:40 AST 11 U/L (0-40) 02/19/23 04:40 ALT 17 U/L (0-41) 02/19/23 04:40 Alkaline Phosphatase 95 U/L (40-130) 02/19/23 04:40 Troponin T Baseline 39 ng/L (0-15) H 02/18/23 22:55 Troponin T 120 Minute 39.05 ng/L (0-15) H 02/19/23 00:58 Delta Troponin T 0.05 ABS# (0-10) 02/19/23 00:58 Troponin T Hi Sens 6Hr 31.95 ng/L (0-15) H 02/19/23 04:40 Troponin T Hi Sens 6Hr Delta -7.05 ng/L (0-12) L 02/19/23 04:40 C-Reactive Protein 72.8 mg/L (0.0-4.9) H 02/19/23 04:40 NT-Pro-B Natriuret Pep 847 pg/mL (0-125) H 02/19/23 10:22 Total Protein 6.7 g/dL (6.6-8.7) 02/19/23 04:40 Albumin 2.5 g/dL (3.5-5.2) L 02/19/23 04:40 Globulin 4.2 g/dL (1.3-4.6) 02/19/23 04:40 Vitamin B12 420 pg/mL (232-1245) 02/19/23 04:40 Procalcitonin 1.81 ng/mL (0-0.5) H 02/19/23 04:40 TSH 0.69 uIU/mL (0.27-4.20) 02/19/23 04:40 Nasal Influ A H1 2009 PCR Not detected (NOT DETECT) 02/18/23 22:55 Adenovirus (PCR) Not detected (NOT DETECT) 02/18/23 22:55 C. pneumoniae DNA (PCR) Not detected (NOT DETECT) 02/18/23 22:55 Coronavirus 229E (PCR) Not detected (NOT DETECT) 02/18/23 22:55 Human Metapneumovir PCR Not detected (NOT DETECT) 02/18/23 22:55 Influenza A (H1) PCR Not detected (NOT DETECT) 02/18/23 22:55 Influenza A (H3) PCR Not detected (NOT DETECT) 02/18/23 22:55 Influenza Type A (PCR) Not detected (NOT DETECT) 02/18/23 22:55 Influenza Type B (PCR) Not detected (NOT DETECT) 02/18/23 22:55 M. pneumoniae (PCR) Not detected (NOT DETECT) 02/18/23 22:55 Parainfluenza 1 (PCR) Not detected (NOT DETECT) 02/18/23 22:55 Parainfluenza 2 (PCR) Not detected (NOT DETECT) 02/18/23 22:55 Parainfluenza 3 (PCR) Not detected (NOT DETECT) 02/18/23 22:55 Parainfluenza 4 (PCR) Not detected (NOT DETECT) 02/18/23 22:55 RSV Type A (PCR) Not detected (NOT DETECT) 02/18/23 22:55 RSV Type B (PCR) Not detected (NOT DETECT) 02/18/23 22:55 Entero/Rhino (PCR) Not detected (NOT DETECT) 02/18/23 22:55 SARS-CoV-2 (PCR) Not detected (NOT DETECT) 02/18/23 22:55 A&P Assessment and plan (1) Acute exacerbation of chronic obstructive airways disease: (2) Respiratory failure, acute and chronic: (3) Pneumonia: Plan 67 M with h/o COPD and chronic hypoxic resp failure p/w worsening dyspnea dand hypoxic resp failure needing to be placed on bipap support on arrival He has reveievd 125 mg solumedrol and serial nebulizations and placed on Bippa BNP not significantly elevated ABG with hypoxia and hypercapnea check d dimer Nebulization with duoneb every 6 hrs and budesonide every 12 hrs dexamthesone 6 mg iv q12h continue bipap repeat ABG in am iv ceftraixone and axithromycin for pneumonia insulin sliding scale for DM management Attestations Medical Necessity Statement*: > 2midnight admission anticioated for above defined care Coding Level of Care Code Critical Care >/= 30 minutes Diagnoses Acute exacerbation of chronic obstructive airways disease J44.1 Respiratory failure, acute and chronic J96.20 Pneumonia J18.9
--- NOTE | 2023-02-19 02:46 | PC.NURSE ---
0120 -- Received from ED via stretcher with RN and RT at bedside. 100% NRB in place. O2 sat 95%. Becomes short of breath with minimal exertion. No reports of pain at present time. 0149 -- Notified Dr. Naranjo of patients arrival from ED.
[2023-02-19] MEDS: azithromycin 500 MG in sodium chloride 0.9% 250 ML 250 MG PO (02:55)
[2023-02-19] MEDS: dexamethasone 4 mg/mL INJ 6 MG IVP ×2 (02:56→14:20)
--- NOTE | 2023-02-19 05:20 | ECG_ITS ---
[facility] Test Date: 2023-02-19 Pat Name: Marlo Gleason Department: Room: [facility] Gender: Male Vial Gauger: : 1955 Requested By: Guillermo Haque Order Number: [id number] Joy MD: Jw Guillory M.D. Measurements Intervals [place] Rate: 83 P: 53 MN: 263 QRS: 92 QRSD: 110 T: 20 QT: 368 QTc: 433 Interpretive Statements SINUS RHYTHM WITH FIRST DEGREE AV BLOCK BORDERLINE RIGHT AXIS DEVIATION [QRS AXIS > 90] Compared to ECG 02/19/2023 00:51:43 No significant changes Electronically Signed On 02-19-2023 10:25:14 CDT by Jw Guillory M.D. [id number]
[2023-02-19 06:14] LABS: Troponin 5 6HR 31.95 ng/L (0-15)
[2023-02-19 06:17] LABS: Alanine Aminotransferase 17 U/L (0-41); Albumin Level 2.5 g/dL (3.5-5.2); Alkaline Phosphatase 95 U/L (40-130); Anion Gap 17.8 (5-19); Aspartate Amino Transferase 11 U/L (0-40); Blood Urea Nitrogen 35 mg/dL (8-23); Calcium 7.5 mg/dL (8.5-10.5); Carbon Dioxide 24 mmol/L (22-29); Chloride 96 mmol/L (98-107); Globulin 4.2 g/dL (1.3-4.6); Glucose 323 mg/dL (65-115); Osmolality Calculated 294 mOsm/kg (285-295); Potassium 5.8 mmol/L (3.5-5.1); Sodium 132 mmol/L (136-145); Total Bilirubin 0.3 mg/dL (0.15-1.2); Total Protein 6.7 g/dL (6.6-8.7); Troponin 5 6HR Delta -7.05 ng/L (0-12)
[2023-02-19 06:22] LABS: Procalcitonin 1.81 ng/mL (0-0.5)
[2023-02-19] MEDS: ipratropium-albuterol 3 mL Neb INHALATION ×3 (08:08→19:43)
[2023-02-19] MEDS: budesonide 0.5 mg/2 mL Neb INHALATION ×2 (08:08→19:43)
[2023-02-19 08:22] LABS: ABG PCO2 58.2 mmHg (35-45); ABG PH Result 7.29 (7.35-7.45); Arterial Blood Gas Hematocrit 35.4 % (42-52); Base Excess ABG 0.2 mmol/L (-2.0-2.0); Blood Gas Operator Identificat GD; Blood Gas Sample Site Brachial, left; Blood Gas Sample Type Arterial; HCO3 ABG 27.8 mmol/L (22-26); Oxygen Device BIPAP; PO2 ABG 78.9 mmHg (80.0-100.0)
[2023-02-19 08:24] LABS: Glucose Point of Care 346 mg/dL (70-110)
[2023-02-19] MEDS: insulin lispro 100 unit/1 mL SUBCUT ×4 (08:33→20:20)
[2023-02-19] MEDS: pantoprazole DR 40 mg Tablet PO (08:34)
--- NOTE | 2023-02-19 09:49 | CTR_ITS ---
PROCEDURE INFORMATION: Exam: CT Chest Without Contrast; Diagnostic Exam date and time: 02/19/2023 12:18 PM Age: 67 years old Clinical indication: Shortness of breath; Additional info: Copd/pna TECHNIQUE: Imaging protocol: Diagnostic computed tomography of the chest without contrast. Radiation optimization: All CT scans at this facility use at least one of these dose optimization techniques: automated exposure control; mA and/or kV adjustment per patient size (includes targeted exams where dose is matched to clinical indication); or iterative reconstruction. REPORTING DATA: Count of CT and Cardiac NM exams in prior 12 months: This patient has received 2 known CTs and 0 known cardiac nuclear medicine studies in the 12 months prior to the current study. COMPARISON: CT chest wo con [id number] 05/20/2022 3:17 PM RADIATION DOSE METRICS: Total DLP (mGy-cm): 572.81 FINDINGS: Lungs: Diffuse upper lobe emphysematous changes, stable. Mild bronchiolitis left lower lung zone relatively unchanged. Scattered lower lobe bronchiectasis with subpleural and peribronchial consolidation at the lung bases mildly improved on the left in slightly worsened at the right lung base likely in part due to subsegmental atelectasis. Superimposed bullous changes left lung base, stable. Irregular stellate shaped subpleural nodular density lateral aspect right mid lung zone and additional curvilinear subpleural density right lung base both stable likely secondary to scarring and chronic subsegmental atelectasis. Pleural spaces: Mild smooth pleural thickening bilaterally, stable. No significant pleural effusions. Heart: See Coronary arteries finding. Coronary arteries: Mild calcification of coronary arteries and evidence of previous coronary artery stent. Heart not significantly enlarged. No significant pericardial effusion. Lymph nodes: Mild mediastinal lymphadenopathy, stable. Vasculature: Unremarkable. No aortic aneurysm. Gallbladder and bile ducts: Gallbladder has been removed. Bile ducts are not appreciably dilated. Bones/joints: Chronic deformity left upper ribcage attributed to old healed fractures. No acute bony abnormalities. Soft tissues: Unremarkable. CT/CT chest wo con [id number] IMPRESSION: 1. Extensive lower lobe airway changes with diffuse bronchiectasis, bronchiolitis and peribronchial consolidation/fibrosis overall not significantly changed in overall severity from previous examination. 2. Stable irregular subpleural densities right lung believed secondary to chronic subsegmental atelectasis and scarring. 3. COPD with diffuse upper lobe emphysematous changes, stable. 4. Mild mediastinal lymphadenopathy, unchanged favoring benign etiology. Follow-up as clinically indicated. COMMENTS: In the absence of a history or active diagnosis of lung cancer, it is recommended that this patient with emphysema be evaluated for enrollment in a low dose CT lung cancer screening program.
--- NOTE | 2023-02-19 09:49 | USCV_ITS ---
GleasonMarlo bearden Age: 67 Gender: M : 1955 Exam Date: 02/19/2023 11:06 Ordering Phys: Cali Chacon MD Technologist: SABINE Exam Location: [facility] [place] Indication: chf BP: / HR: 74 Rhythm: Sinus Technical Quality: Adequate MEASUREMENTS (Male / Female) Normal Values 2D ECHO LV Diastolic Diameter PLAX 4.4 cm 4.2 - 5.9 / 3.9 - 5.3 cm LV Systolic Diameter PLAX 2.9 cm IVS Diastolic Thickness 0.9 cm 0.6 - 1.0 / 0.6 - 0.9 cm IVS Systolic Thickness 1.5 cm LVPW Diastolic Thickness 0.9 cm 0.6 - 1.0 / 0.6 - 0.9 cm LVPW Systolic Thickness 1.5 cm LVOT Diameter 2.4 cm LV Ejection Fraction 2D Teich 64.4 % LV Ejection Fraction MOD 2C 60.9 % LV Ejection Fraction 2C AL 60.0 % LA Diameter 2.6 cm IVC Diameter 1.5 cm M-MODE Aortic Annulus Diameter 3.0 cm LA Ao Ratio MM 1.0 MV E Point Septal Separation 0.1 cm DOPPLER AV Peak Velocity 105.0 cm/s LVOT Peak Velocity 80.0 cm/s AV Area Cont Eq vti 3.7 cm squared AV Area Cont Eq pk 3.4 cm squared MV Area PHT 5.0 cm squared Mitral E to A Ratio 0.8 MV E' Velocity 39.5 cm/s Mitral E to MV E' Ratio 8.3 Mitral E to LV E' Lateral Ratio 8.5 Mitral E to LV E' Septal Ratio 8.1 TR Peak Velocity 180.7 cm/s TR Peak Gradient 13.1 mmHg TV Peak E Velocity 66.0 cm/s Right Atrial Pressure 3.0 mmHg Pulmonary Artery Systolic Pressu 16.1 mmHg PV Peak Velocity 109.0 cm/s FINDINGS Left Ventricle Left ventricle is normal in size. LV systolic function is normal with EF of 55 to 60%. No regional wall motion abnormalities are seen. Right Ventricle Normal in size and function Right Atrium Normal in size Left Atrium Normal in size Mitral Valve Structurally normal mitral valve. Trace mitral regurgitation. Aortic Valve Structurally normal aortic valve. No significant stenosis or regurgitation. Tricuspid Valve Mild tricuspid regurgitation. Pulmonary artery systolic pressure is normal. Pulmonic Valve Not well visualized Pericardium Normal Aorta Normal in size IVC Appears to be normal CONCLUSIONS LV systolic function is normal with EF of 55 to 60%. Trace mitral regurgitation Mild tricuspid regurgitation Compared to prior echocardiogram from 2021, no significant changes are seen Jw Guillory MD (Electronically Signed) Final Date: 20 February 2023 10:22 S
[2023-02-19 10:29] LABS: C Reactive Protein 72.8 mg/L (0.0-4.9); Thyroid Stimulating Hormone 0.69 uIU/mL (0.27-4.20)
[2023-02-19 10:37] LABS: Iron 11 ug/dL (59-158); Total Iron Binding Capacity 156 mcg/dl; Unsaturated Iron Binding 145 ug/dL (112-347); Vitamin B12 420 pg/mL (232-1245)
[2023-02-19] MEDS: sodium chloride 0.9% 1,000 ML 50 ML IV (11:26)
[2023-02-19] MEDS: guaiFENesin 600 mg Tablet PO ×2 (11:27→20:22)
[2023-02-19 11:28] LABS: NT Pro B Type Natriuretic Pept 847 pg/mL (0-125)
[2023-02-19 12:41] LABS: Glucose Point of Care 275 mg/dL (70-110)
[2023-02-19] MEDS: HYDROcodone-acetaminophen 5-325 mg Tablet 1 TAB PO ×2 (12:59→20:19)
--- NOTE | 2023-02-19 14:05 | W.PM.EVENTAC ---
Event Note Event Note: Admitted earlier today morning. H&P and labs appreciated. Patient remains BiPAP dependent. Appreciate ABG from today morning. Patient awake and alert on BiPAP, able to have conversation though muffled sounds due to BiPAP in place. Has remained hemodynamically stable and afebrile. Saturating more than 92%. Plan: Respiratory failure ABG showing mixed respiratory and metabolic acidosis. PCO2 improving. Switch to AVAPS mode. Repeat ABG in afternoon. Check urine Legionella, bacterial antigen, sputum culture, MRSA swab. Continue with budesonide twice daily, DuoNebs every 4 hour. Continue with IV steroids with dexamethasone 6 mg every 12 hourly for COPD exacerbation. Chest vest. Check echocardiogram. CT chest without contrast for further evaluation of possible pneumonia. Respiratory viral panel negative. Akhtar catheterization for strict input output charting. Continue with IV ceftriaxone and oral azithromycin. Patient clinically dehydrated. Start on normal saline at 50 cc/h. PRIYA on CKD with hyperkalemia: Medical reconciliation done for nephrotoxic drugs. IV fluids as above. D50 with 10 units of insulin. Repeat BMP in evening. Restart other chronic oral medications including aspirin, statin, BuSpar, Celexa, guanfacine, metoprolol, mirtazapine, Flomax and Effexor. N.p.o. for now. Other Coding Information Prolonged care (total time indicated above or notated here) (Critical care time of 50 minutes) Reviewing chart, managing BiPAP ventilation as per repeat ABGs, home medications, labs with treatment of hyperkalemia, hypercapnia with metabolic and respiratory acidosis.
[2023-02-19] MEDS: insulin regular-human 10 UNIT in SYRINGE 1 EACH IVP (14:19)
[2023-02-19] MEDS: acetaminophen 325 mg Tablet PO (14:20)
[2023-02-19] MEDS: heparin 5,000 unit/mL INJ 1 mL 5000 UNIT SUBCUT (14:20)
[2023-02-19] MEDS: BuSPIRONE 10 mg Tablet PO ×2 (14:20→20:19)
[2023-02-19 15:02] LABS: Add Urine Microscopic? YES; Bilirubin Urine Neg (Negative); Blood Urine 2+ (Negative); Glucose Urine UA 4+ (Normal); Ketones Urine Negative (Negative); Leukocyte Esterase Urine Negative (Negative); Nitrate Urine Negative (Negative); Protein Urine Neg (Negative); Specific Gravity, Urine 1.015 (1.005-1.030); Urine Appearance Clear (CLEAR); Urine Color Straw (Yellow); Urobilinogen Urine Norm (Negative); pH Urine 5 (5-7)
[2023-02-19 15:03] LABS: Add Urine Culture? No; Bacteria Urine TRACE /hpf; RBC Urine 0-4 /hpf (0-2); WBC Urine RARE /hpf (0-5)
[2023-02-19 15:51] LABS: ABG PCO2 58.2 mmHg (35-45); ABG PH Result 7.31 (7.35-7.45); Alveolar-Arterial Oxygen Gradi 12.8 mmHg (5-10); Arterial Blood Gas Hematocrit 34.6 % (42-52); Base Excess ABG 1.9 mmol/L (-2.0-2.0); Blood Gas Operator Identificat GD; Blood Gas Sample Site Brachial, left; Blood Gas Sample Type Arterial; Carboxyhemoglobin 1.5 %THgb (0.4-20.1); HCO3 ABG 29.2 mmol/L (22-26); Ionized Calcium Level - ABG 1.2 mmol/L (1.1-1.4); Methemoglobin 0.4 % (0.4-1.5); Oxygen Device BIPAP; Oxygen Saturation ABG 96.8; PO2 ABG 79.1 mmHg (80.0-100.0); Potassium Level - ABG 4.5 mmol/L (3.5-5.0); Total Hemoglobin 11.3 g/dL (14-18)
[2023-02-19 17:08] LABS: Glucose Point of Care 204 mg/dL (70-110)
[2023-02-19] MEDS: piperacillin-tazobactam 3.375 GM in sodium chloride 0.9% (plus) 50 ML IV ×2 (17:28→23:52)
[2023-02-19] MEDS: metoprolol tartrate 25 mg Tablet PO (17:28)
[2023-02-19] MEDS: docusate sodium 100 mg Capsule PO (17:28)
[2023-02-19 19:49] LABS: Blood Urea Nitrogen 38 mg/dL (8-23); Calcium 7.7 mg/dL (8.5-10.5); Carbon Dioxide 29 mmol/L (22-29); Chloride 98 mmol/L (98-107); Glomerular Filtration Rate 43.6 mL/min (90-130); Glucose 182 mg/dL (65-115); Osmolality Calculated 292 mOsm/kg (285-295); Sodium 134 mmol/L (136-145)
[2023-02-19 20:14] LABS: Glucose Point of Care 170 mg/dL (70-110)
[2023-02-19] MEDS: benzonatate 100 mg Capsule PO (20:19)
[2023-02-19] MEDS: atorvastatin 40 mg Tablet PO (20:19)
[2023-02-19] MEDS: tamsulosin 0.4 mg Capsule PO (20:19)
[2023-02-20] VITALS (30 sets, daily range): BP systolic 82–121; BP diastolic 48–74; PULSE 54–86; RESP 14–34; TEMP 36.7; O2SAT 87–100; BMI 33.5
[2023-02-20] MEDS: acetaminophen 325 mg Tablet PO (00:57)
[2023-02-20] MEDS: heparin 5,000 unit/mL INJ 1 mL 5000 UNIT SUBCUT ×2 (01:15→16:29)
[2023-02-20] MEDS: azithromycin 500 MG in sodium chloride 0.9% 250 ML 250 MG PO (01:15)
[2023-02-20] MEDS: ipratropium-albuterol 3 mL Neb INHALATION ×4 (02:32→19:35)
[2023-02-20] MEDS: dexamethasone 4 mg/mL INJ 6 MG IVP (04:10)
[2023-02-20 04:19] LABS: Basophils % 0.1 %; Hematocrit 34.3 % (42.0-52.0); Hemoglobin 9.9 g/dL (11.7-16.6); Lymphocytes # 1.2 10^3/uL (0.8-4.8); Lymphocytes % 6.5 %; Mean Corpuscular HGB Conc 28.9 g/dL (30.0-36.0); Mean Corpuscular Hemoglobin 22.9 pg (28.0-34.0); Mean Corpuscular Volume 79.4 fl (80-94); Mean Platelet Volume 9.1 fL (7.4-10.4); Monocytes # 0.6 10^3/uL (0.2-0.9); Monocytes % 3.3 %; Neutrophils # 16.77 10^3/uL (1.8-7.7); Neutrophils % 89.5 %; Nucleated Red Blood Cells % 0 %; Platelet Count 322 10^3/cmm (130-400); Red Blood Count 4.32 10^6/uL (4.1-5.3); Red Cell Distribution Width 16.3 % (12.1-15.1); White Blood Count 18.8 10^3/uL (4.0-10.0)
[2023-02-20 04:34] LABS: Alanine Aminotransferase 14 U/L (0-41); Albumin Level 2.5 g/dL (3.5-5.2); Alkaline Phosphatase 77 U/L (40-130); Anion Gap 13.3 (5-19); Aspartate Amino Transferase 11 U/L (0-40); Blood Urea Nitrogen 41 mg/dL (8-23); Calcium 7.8 mg/dL (8.5-10.5); Carbon Dioxide 29 mmol/L (22-29); Chloride 98 mmol/L (98-107); Glucose 175 mg/dL (65-115); Osmolality Calculated 294 mOsm/kg (285-295); Potassium 5.3 mmol/L (3.5-5.1); Sodium 135 mmol/L (136-145); Total Bilirubin 0.4 mg/dL (0.15-1.2); Total Protein 6.5 g/dL (6.6-8.7)
[2023-02-20 04:41] LABS: Chol HDL Ratio 2.84 mg/dL (1.0-5.00); Cholesterol 88 mg/dL (0-200); HDL Cholesterol 31 mg/dL (60-100); LDL Cholesterol Calculated 42 mg/dL (50-129); Triglycerides 75 mg/dL (0-150); VLDL Cholestrol Calculation 15 mg/dL (0-30)
[2023-02-20 04:46] LABS: Estmated Average Glucose 206; Hemoglobin A1C 8.8 % (4.0-6.0)
[2023-02-20 04:58] LABS: Folate Level 12.1 ng/mL (4.5-32.2)
[2023-02-20] MEDS: budesonide 0.5 mg/2 mL Neb INHALATION ×2 (08:24→19:35)
[2023-02-20 08:26] LABS: Glucose Point of Care 198 mg/dL (70-110)
[2023-02-20] MEDS: sodium chloride 0.9% 1,000 ML 50 ML IV (08:48)
[2023-02-20] MEDS: insulin lispro 100 unit/1 mL SUBCUT ×4 (08:48→21:11)
[2023-02-20] MEDS: piperacillin-tazobactam 3.375 GM in sodium chloride 0.9% (plus) 50 ML IV ×2 (08:49→16:29)
[2023-02-20] MEDS: pantoprazole 40 mg SDV IVP ×2 (08:49→21:15)
[2023-02-20] MEDS: aspirin 81 mg EC Tablet PO (08:50)
[2023-02-20] MEDS: BuSPIRONE 10 mg Tablet PO ×3 (08:50→21:15)
[2023-02-20] MEDS: mirtazapine 30 mg Tablet 15 MG PO (08:50)
[2023-02-20] MEDS: sucralfate 1 gm Tablet PO ×2 (08:50→21:15)
[2023-02-20] MEDS: citalopram 20 mg Tablet PO (08:50)
[2023-02-20] MEDS: docusate sodium 100 mg Capsule PO ×2 (08:50→17:35)
[2023-02-20] MEDS: metoprolol tartrate 25 mg Tablet PO ×2 (08:50→17:35)
[2023-02-20] MEDS: guaiFENesin 600 mg Tablet PO ×2 (08:51→21:15)
[2023-02-20] MEDS: venlafaxine ER (24HR) 75 mg Capsule PO (08:51)
[2023-02-20 09:03] LABS: Hematocrit 36.5 % (42.0-52.0); Hemoglobin 10.6 g/dL (11.7-16.6); Lymphocytes # 1.1 10^3/uL (0.8-4.8); Lymphocytes % 5.6 %; Mean Corpuscular Hemoglobin 23.6 pg (28.0-34.0); Mean Corpuscular Volume 81.3 fl (80-94); Monocytes # 0.3 10^3/uL (0.2-0.9); Monocytes % 1.7 %; Neutrophils # 18.65 10^3/uL (1.8-7.7); Nucleated Red Blood Cells % 0 %; Platelet Count 330 10^3/cmm (130-400); Red Blood Count 4.49 10^6/uL (4.1-5.3); Red Cell Distribution Width 16.6 % (12.1-15.1); White Blood Count 20.3 10^3/uL (4.0-10.0)
[2023-02-20 09:18] LABS: Lactic Sepsis W/Reflex 1.6 mmol/L (0.5-2.2)
[2023-02-20 09:20] LABS: C Reactive Protein 96.8 mg/L (0.0-4.9); Ferritin 201 ng/mL (30-400)
[2023-02-20 09:25] LABS: Procalcitonin 3.14 ng/mL (0-0.5)
[2023-02-20 10:01] LABS: Hepatitis A Antibody IgM Non-Reactive (Nonreactive); Hepatitis B Core IgM Non-Reactive (Nonreactive); Hepatitis B Surface Antigen Non-Reactive (Nonreactive); Hepatitis C Virus Antibody Non-Reactive (Nonreactive)
[2023-02-20 10:04] LABS: HIV 1 & 2 Antibody Non-Reactive (Non-Reactiv); HIV 1 & 2 Antigen Non-Reactive (Non-Reactiv)
[2023-02-20 12:01] LABS: Glucose Point of Care 297 mg/dL (70-110)
--- NOTE | 2023-02-20 13:52 | P.PN_ITS ---
Subjective Subjective: Patient was seen this morning, currently on BiPAP, resting comfortably, he tells me that his shortness of breath has significantly improved, no chest pain, no palpitations, no nausea, no vomiting, no abdominal pain, no lightheadedness, no dizziness, he has not had anything to eat and is hungry, Vitals/I&O/Wt Last Vital Signs Temp 97.0 F L 02/19/23 12:00 Pulse 54 L 02/20/23 13:41 Resp 18 02/20/23 13:41 BP 93/52 02/20/23 12:00 Pulse Ox 94 02/20/23 13:41 O2 Del Method Nasal Cannula 02/20/23 13:41 O2 Flow Rate 3 02/20/23 13:41 FiO2 35 02/20/23 12:00 02/19/23 02/20/23 02/20/23 22:59 06:59 14:59 Intake Total 200.1 / 250.1 450 / 700.1 1350 / 1350 Output Total 875 / 1475 550 / 2025 400 / 400 Balance -674.9 / -1224.9 -100 / -1324.9 950 / 950 Weight last 48 hrs Weight 99.958 kg Weight 99.79 kg Physical Exam Const: COMMON NORMALS: no acute distress and patient oriented x3 Resp: COMMON NORMALS: normal respiratory effort, No retractions, No use of accessory muscles and clear to auscultation bilaterally AUSCULTATION: clear to auscultation bilaterally Cardio: COMMON NORMALS: regular rate, regular rhythm, S1 normal heart sound present and S2 normal heart sound present RATE: regular rate RHYTHM: regular rhythm HEART SOUNDS: S1 normal heart sound present and S2 normal heart sound present GI: COMMON NORMALS: Normal to inspection, nondistended, normoactive bowel sounds present Extremity: COMMON NORMALS: no pedal edema Neuro: COMMON NORMALS: patient oriented x3 Psych: COMMON NORMALS: mental status grossly normal Urinary Catheter Management: Akhtar: Cath Placed During This Visit: yes Reason for Continuing Indwelling Catheter: Accurate Measurement of Urinary Output in Critically Ill Patients Urinary Catheter Date of Insertion: 02/19/23 Urinary Catheter Time of Insertion: 12:53 Data 02/20/23 08:43 02/20/23 03:56 Micro: Microbiology 02/19/23 12:45 MRSA Culture - Final Nose 06/02/23 23:06 Blood Culture - Preliminary Blood NEGATIVE TO DATE 02/18/23 23:03 Blood Culture - Preliminary Blood NEGATIVE TO DATE 02/19/23 12:45 Legionella Urinary Antigen - Final Unknown Source 02/19/23 12:45 Bacterial Antigens - Final Urine Kidney A&P Assessment and plan (1) Acute exacerbation of chronic obstructive airways disease: (2) Respiratory failure, acute and chronic: (3) Pneumonia: (4) Iron deficiency anemia: (5) CKD (chronic kidney disease): (6) Type 2 diabetes mellitus: (7) NSTEMI (non-ST elevated myocardial infarction): (8) Low blood pressure: Plan 67 M with h/o COPD and chronic hypoxic resp failure p/w worsening dyspnea dand hypoxic resp failure needing to be placed on bipap support on arrival Acute hypoxic respiratory failure -Likely multifactorial from COPD exacerbation, and pneumonia -Patient's ER back and oxygen were positive for group B strep Plan -Monitor in the intensive care unit -Wean off BiPAP during the day, schedule during the night -Bedside speech swallow eval, advance as tolerated -Continue Zosyn, azithromycin -Follow blood cultures, sputum cultures -Continue Decadron -Monitor blood sugars closely -Full code -Heparin for DVT prophylaxis Pneumonia, with group B strep urine, as above, will add HIV, acute hep C Type 2 diabetes mellitus, continue low-dose sliding scale NSTEMI -Likely type II NSTEMI from supply demand ischemia, no chest pain complaints -Continue telemetry monitoring -Cardiac echo ?LV systolic function is normal with EF of 55 to 60%. ?Trace mitral regurgitation ?Mild tricuspid regurgitation ?Compared to prior echocardiogram from 2021, no significant ?changes are seen -Monitor Chronic kidney disease, monitor urine output Potassium 5.3 monitor Iron deficiency anemia, Protonix, Carafate, monitor hemoglobin closely Soft blood pressures lactic acid within normal limits, no reported bloody or black stools, monitor, alert oriented x3, following all commands Plan for today, will continue antibiotic therapy monitor blood sugars closely, hep C ordered HIV ordered, monitor telemetry monitoring up out of bed, wean off BiPAP during the day, decrease Decadron to 6 mg every 24 hours, add glargine 10 units every 24 hours Attestations Medical Necessity Statement*: Patient requires hospitalization for acute respiratory failure secondary to COPD exacerbation, pneumonia, NSTEMI, and High T gisela for a total of 60 minutes, includes reviewing past or interval history, examining/interviewing patient, placing orders, counseling patient/family/other support, updating patient/family/other support, discussing plan of care with staff, communicating with other healthcare providers, documenting encounter and coordinating care Diagnoses Acute exacerbation of chronic obstructive airways disease J44.1 Respiratory failure, acute and chronic J96.20 Pneumonia J18.9 Iron deficiency anemia D50.9 CKD (chronic kidney disease) N18.9 Type 2 diabetes mellitus E11.9 NSTEMI (non-ST elevated myocardial infarction) I21.4 Low blood pressure I95.9
[2023-02-20 21:04] LABS: Glucose Point of Care 238 mg/dL (70-110)
[2023-02-20] MEDS: insulin glargine 100 units/1 mL 10 UNIT SUBCUT (21:11)
[2023-02-20] MEDS: HYDROcodone-acetaminophen 5-325 mg Tablet 1 TAB PO (21:15)
[2023-02-20] MEDS: tamsulosin 0.4 mg Capsule PO (21:15)
[2023-02-20] MEDS: atorvastatin 40 mg Tablet PO (21:15)
[2023-02-20] MEDS: benzonatate 100 mg Capsule PO (21:15)
[2023-02-21] VITALS (27 sets, daily range): BP systolic 86–137; BP diastolic 43–84; PULSE 54–96; RESP 6–34; TEMP 36.4; O2SAT 87–99; BMI 33.3
[2023-02-21] MEDS: piperacillin-tazobactam 3.375 GM in sodium chloride 0.9% (plus) 50 ML IV ×3 (00:55→17:13)
[2023-02-21] MEDS: azithromycin 500 MG in sodium chloride 0.9% 250 ML 250 MG PO (02:11)
[2023-02-21] MEDS: heparin 5,000 unit/mL INJ 1 mL 5000 UNIT SUBCUT ×2 (02:12→14:54)
[2023-02-21] MEDS: ipratropium-albuterol 3 mL Neb INHALATION ×4 (02:51→19:48)
[2023-02-21 04:45] LABS: Basophils % 0.1 %; Hematocrit 34.3 % (42.0-52.0); Hemoglobin 9.9 g/dL (11.7-16.6); Lymphocytes # 2.4 10^3/uL (0.8-4.8); Lymphocytes % 12.2 %; Mean Corpuscular HGB Conc 28.9 g/dL (30.0-36.0); Mean Corpuscular Hemoglobin 22.9 pg (28.0-34.0); Mean Corpuscular Volume 79.4 fl (80-94); Mean Platelet Volume 9.2 fL (7.4-10.4); Monocytes # 1.5 10^3/uL (0.2-0.9); Monocytes % 7.4 %; Neutrophils # 15.58 10^3/uL (1.8-7.7); Neutrophils % 79.6 %; Nucleated Red Blood Cells % 0 %; Platelet Count 336 10^3/cmm (130-400); Red Blood Count 4.32 10^6/uL (4.1-5.3); Red Cell Distribution Width 16.5 % (12.1-15.1); White Blood Count 19.6 10^3/uL (4.0-10.0)
[2023-02-21 05:10] LABS: NT Pro B Type Natriuretic Pept 3286 pg/mL (0-125); Procalcitonin 1.85 ng/mL (0-0.5)
[2023-02-21 05:15] LABS: Alanine Aminotransferase 13 U/L (0-41); Albumin Level 2.5 g/dL (3.5-5.2); Alkaline Phosphatase 77 U/L (40-130); Anion Gap 13.2 (5-19); Aspartate Amino Transferase 13 U/L (0-40); Blood Urea Nitrogen 41 mg/dL (8-23); C Reactive Protein 38.8 mg/L (0.0-4.9); Calcium 8.2 mg/dL (8.5-10.5); Carbon Dioxide 28 mmol/L (22-29); Chloride 97 mmol/L (98-107); Globulin 3.8 g/dL (1.3-4.6); Glucose 200 mg/dL (65-115); Magnesium 1.9 mg/dL (1.7-2.3); Osmolality Calculated 292 mOsm/kg (285-295); Phosphorus 2.5 mg/dL (2.5-4.5); Potassium 5.2 mmol/L (3.5-5.1); Sodium 133 mmol/L (136-145); Total Bilirubin 0.3 mg/dL (0.15-1.2); Total Protein 6.3 g/dL (6.6-8.7)
[2023-02-21] MEDS: HYDROcodone-acetaminophen 5-325 mg Tablet 1 TAB PO (05:25)
[2023-02-21] MEDS: dexamethasone 4 mg/mL INJ 6 MG IVP (06:03)
[2023-02-21 07:15] LABS: Glucose Point of Care 261 mg/dL (70-110)
[2023-02-21] MEDS: insulin lispro 100 unit/1 mL SUBCUT ×4 (08:26→20:51)
[2023-02-21] MEDS: pantoprazole 40 mg SDV IVP ×2 (08:27→20:50)
[2023-02-21] MEDS: mirtazapine 30 mg Tablet 15 MG PO (08:27)
[2023-02-21] MEDS: sucralfate 1 gm Tablet PO ×2 (08:27→20:49)
[2023-02-21] MEDS: docusate sodium 100 mg Capsule PO ×2 (08:27→17:13)
[2023-02-21] MEDS: aspirin 81 mg EC Tablet PO (08:28)
[2023-02-21] MEDS: venlafaxine ER (24HR) 75 mg Capsule PO (08:28)
[2023-02-21] MEDS: citalopram 20 mg Tablet PO (08:28)
[2023-02-21] MEDS: metoprolol tartrate 25 mg Tablet PO ×2 (08:28→17:14)
[2023-02-21] MEDS: BuSPIRONE 10 mg Tablet PO ×3 (08:28→21:03)
[2023-02-21] MEDS: FUROsemide 10 mg/mL SDV 4mL 40 MG IVP (09:10)
[2023-02-21] MEDS: guaiFENesin 600 mg Tablet PO ×2 (09:15→21:03)
[2023-02-21] MEDS: budesonide 0.5 mg/2 mL Neb INHALATION ×2 (09:15→19:48)
[2023-02-21 11:28] LABS: Glucose Point of Care 409 mg/dL (70-110)
--- NOTE | 2023-02-21 14:44 | PM.PN ---
Subjective Subjective: Patient was seen this morning, denies any chest pain, no palpitations, he tells me that [facility], but I advised him that we will need to try to get him up into a chair today, no fevers, no chills, Vitals/I&O/Wt Last Vital Signs Temp 98.1 F 02/20/23 16:00 Pulse 70 02/21/23 13:37 Resp 22 H 02/21/23 13:31 BP 124/64 02/21/23 09:00 Pulse Ox 96 02/21/23 13:31 O2 Del Method Nasal Cannula 02/21/23 13:31 O2 Flow Rate 5 02/21/23 13:31 FiO2 35 02/21/23 06:00 02/20/23 02/21/23 02/21/23 22:59 06:59 14:59 Intake Total 550 / 1950 1603.333 / 3553.333 350 / 350 Output Total 700 / 1100 2550 / 3650 Balance -150 / 850 -946.667 / -96.667 350 / 350 Weight last 48 hrs Weight 99.473 kg Weight 99.958 kg Physical Exam Const: COMMON NORMALS: no acute distress and patient oriented x3 Resp: COMMON NORMALS: normal respiratory effort, No retractions, No use of accessory muscles and clear to auscultation bilaterally AUSCULTATION: clear to auscultation bilaterally Cardio: COMMON NORMALS: regular rate, regular rhythm, S1 normal heart sound present and S2 normal heart sound present RATE: regular rate RHYTHM: regular rhythm HEART SOUNDS: S1 normal heart sound present and S2 normal heart sound present GI: COMMON NORMALS: Normal to inspection, nondistended, normoactive bowel sounds present and non-tender Extremity: COMMON NORMALS: no pedal edema Neuro: COMMON NORMALS: patient oriented x3 Psych: COMMON NORMALS: mental status grossly normal Urinary Catheter Management: Akhtar: Cath Placed During This Visit: yes Reason for Continuing Indwelling Catheter: Accurate Measurement of Urinary Output in Critically Ill Patients Urinary Catheter Date of Insertion: 02/19/23 Urinary Catheter Time of Insertion: 12:53 Data 02/21/23 04:20 02/21/23 04:20 Micro: Microbiology 02/20/23 22:13 Occult Blood (FIT) - Final Stool Routine Collection 02/19/23 12:45 MRSA Culture - Final Nose A&P Assessment and plan (1) Acute exacerbation of chronic obstructive airways disease: (2) Respiratory failure, acute and chronic: (3) Pneumonia: (4) Iron deficiency anemia: (5) CKD (chronic kidney disease): (6) Type 2 diabetes mellitus: (7) NSTEMI (non-ST elevated myocardial infarction): (8) Low blood pressure: (9) Fluid overload: Plan 67 M with h/o COPD and chronic hypoxic resp failure p/w worsening dyspnea dand hypoxic resp failure needing to be placed on bipap support on arrival Acute hypoxic respiratory failure -Likely multifactorial from COPD exacerbation, and pneumonia -Patient's ER back and oxygen were positive for group B strep Plan -Monitor in the intensive care unit -Wean off BiPAP during the day, schedule during the night -Bedside speech swallow eval, advance as tolerated -Continue Zosyn, azithromycin -Follow blood cultures, sputum cultures -Continue Decadron -Monitor blood sugars closely -Full code -Heparin for DVT prophylaxis -Today looks a bit fluid overloaded with elevated BNP will give 1 dose of Lasix Pneumonia, with group B strep urine, HIV negative, hep C negative Type 2 diabetes mellitus, continue low-dose sliding scale -Blood sugars remain elevated start Lantus 10 units twice daily NSTEMI -Likely type II NSTEMI from supply demand ischemia, no chest pain complaints -Continue telemetry monitoring -Cardiac echo ?LV systolic function is normal with EF of 55 to 60%. ?Trace mitral regurgitation ?Mild tricuspid regurgitation ?Compared to prior echocardiogram from 2021, no significant ?changes are seen -Monitor Chronic kidney disease, monitor urine output Potassium 5.3 monitor Iron deficiency anemia, Protonix, Carafate, monitor hemoglobin closely Soft blood pressures lactic acid within normal limits, no reported bloody or black stools, monitor, alert oriented x3, following all commands Plan for today, will give 1 dose of Lasix, increase Lantus dose continue antibiotics, follow cultures, hopefully moved to [facility] Spoke to nursing staff, spoke to patient Attestations Medical Necessity Statement*: Patient requires hospitalization, for acute respiratory failure, COPD, pneumonia, now fluid overload Diagnoses Acute exacerbation of chronic obstructive airways disease J44.1 Respiratory failure, acute and chronic J96.20 Pneumonia J18.9 Iron deficiency anemia D50.9 CKD (chronic kidney disease) N18.9 Type 2 diabetes mellitus E11.9 NSTEMI (non-ST elevated myocardial infarction) I21.4 Low blood pressure I95.9 Fluid overload E87.70
[2023-02-21] MEDS: insulin glargine 100 units/1 mL 10 UNIT SUBCUT (14:54)
[2023-02-21 16:24] LABS: Glucose Point of Care 491 mg/dL (70-110)
[2023-02-21 20:31] LABS: Glucose Point of Care 321 mg/dL (70-110)
[2023-02-21] MEDS: tamsulosin 0.4 mg Capsule PO (20:49)
[2023-02-21] MEDS: atorvastatin 40 mg Tablet PO (20:49)
[2023-02-22] VITALS (20 sets, daily range): BP systolic 118–155; BP diastolic 72–91; PULSE 55–114; RESP 16–30; TEMP 36.4–36.5; O2SAT 90–100
[2023-02-22] MEDS: piperacillin-tazobactam 3.375 GM in sodium chloride 0.9% (plus) 50 ML IV ×3 (00:20→17:45)
[2023-02-22] MEDS: insulin glargine 100 units/1 mL 10 UNIT SUBCUT ×2 (02:12→12:29)
[2023-02-22] MEDS: heparin 5,000 unit/mL INJ 1 mL 5000 UNIT SUBCUT ×2 (02:17→14:14)
[2023-02-22 02:50] LABS: Basophils % 0.1 %; Eosinophils % 0.2 %; Hematocrit 42.7 % (42.0-52.0); Hemoglobin 12.4 g/dL (11.7-16.6); Lymphocytes # 4.3 10^3/uL (0.8-4.8); Lymphocytes % 17.8 %; Mean Corpuscular Hemoglobin 22.8 pg (28.0-34.0); Mean Corpuscular Volume 78.3 fl (80-94); Mean Platelet Volume 9.2 fL (7.4-10.4); Monocytes % 8.4 %; Neutrophils # 17.32 10^3/uL (1.8-7.7); Neutrophils % 72.1 %; Nucleated Red Blood Cells % 0 %; Platelet Count 396 10^3/cmm (130-400); Red Blood Count 5.45 10^6/uL (4.1-5.3)
[2023-02-22] MEDS: ipratropium-albuterol 3 mL Neb INHALATION ×3 (03:02→20:11)
[2023-02-22 03:20] LABS: NT Pro B Type Natriuretic Pept 2976 pg/mL (0-125); Procalcitonin 1.27 ng/mL (0-0.5)
[2023-02-22 03:32] LABS: Alanine Aminotransferase 16 U/L (0-41); Albumin Level 3.3 g/dL (3.5-5.2); Alkaline Phosphatase 106 U/L (40-130); Anion Gap 11.5 (5-19); Aspartate Amino Transferase 13 U/L (0-40); Blood Urea Nitrogen 37 mg/dL (8-23); C Reactive Protein 26.8 mg/L (0.0-4.9); Carbon Dioxide 35 mmol/L (22-29); Chloride 94 mmol/L (98-107); Globulin 4.6 g/dL (1.3-4.6); Glomerular Filtration Rate 43.6 mL/min (90-130); Glucose 124 mg/dL (65-115); Magnesium 1.9 mg/dL (1.7-2.3); Osmolality Calculated 292 mOsm/kg (285-295); Phosphorus 2.3 mg/dL (2.5-4.5); Potassium 4.5 mmol/L (3.5-5.1); Sodium 136 mmol/L (136-145); Total Bilirubin 0.3 mg/dL (0.15-1.2); Total Protein 7.9 g/dL (6.6-8.7)
[2023-02-22] MEDS: dexamethasone 4 mg/mL INJ 6 MG IVP (06:30)
[2023-02-22 06:51] LABS: Glucose Point of Care 173 mg/dL (70-110)
[2023-02-22 07:26] LABS: Glucose Point of Care 172 mg/dL (70-110)
[2023-02-22] MEDS: budesonide 0.5 mg/2 mL Neb INHALATION ×2 (08:29→20:11)
[2023-02-22] MEDS: insulin lispro 100 unit/1 mL SUBCUT ×4 (09:09→21:09)
[2023-02-22] MEDS: FUROsemide 10 mg/mL SDV 4mL 40 MG IVP (09:10)
[2023-02-22] MEDS: pantoprazole 40 mg SDV IVP ×2 (09:10→20:31)
[2023-02-22] MEDS: aspirin 81 mg EC Tablet PO (09:11)
[2023-02-22] MEDS: guaiFENesin 600 mg Tablet PO ×2 (09:11→21:09)
[2023-02-22] MEDS: BuSPIRONE 10 mg Tablet PO ×3 (09:12→20:25)
[2023-02-22] MEDS: venlafaxine ER (24HR) 75 mg Capsule PO (09:12)
[2023-02-22] MEDS: docusate sodium 100 mg Capsule PO ×2 (09:12→17:45)
[2023-02-22] MEDS: citalopram 20 mg Tablet PO (09:12)
[2023-02-22] MEDS: mirtazapine 30 mg Tablet 15 MG PO (09:12)
[2023-02-22] MEDS: metoprolol tartrate 25 mg Tablet PO ×2 (09:12→17:44)
[2023-02-22] MEDS: sucralfate 1 gm Tablet PO ×2 (09:12→20:25)
[2023-02-22 11:07] LABS: Glucose Point of Care 445 mg/dL (70-110)
--- NOTE | 2023-02-22 11:18 | PC.SOCIAL ---
Imm update Imm updated with patient at bedside. Copy of page 2 provided. Patient verbalized understanding. Copy in chart initialed, dated and timed.
[2023-02-22 16:44] LABS: Glucose Point of Care 313 mg/dL (70-110)
--- NOTE | 2023-02-22 18:06 | PM.PN ---
Subjective Subjective: Patient was seen this morning, he feels a lot better he tells me, denies any chest pain, no shortness of breath did sit up in a chair yesterday Vitals/I&O/Wt Last Vital Signs Temp 97.7 F 02/22/23 16:00 Pulse 59 L 02/22/23 16:00 Resp 17 02/22/23 16:00 BP 131/72 02/22/23 16:00 Pulse Ox 94 02/22/23 16:00 O2 Del Method Nasal Cannula 02/22/23 12:51 O2 Flow Rate 5 02/22/23 08:29 FiO2 35 02/21/23 06:00 02/22/23 02/22/23 02/22/23 06:59 14:59 22:59 Intake Total 50 / 980 50 / 50 Output Total 3150 / 5350 Balance -3100 / -4370 50 / 50 Weight last 48 hrs Weight 97.522 kg Weight 99.473 kg Physical Exam Const: COMMON NORMALS: no acute distress and patient oriented x3 Resp: COMMON NORMALS: normal respiratory effort, No retractions, No use of accessory muscles and clear to auscultation bilaterally AUSCULTATION: clear to auscultation bilaterally Cardio: COMMON NORMALS: regular rate, regular rhythm, S1 normal heart sound present and S2 normal heart sound present RATE: regular rate RHYTHM: regular rhythm HEART SOUNDS: S1 normal heart sound present and S2 normal heart sound present GI: COMMON NORMALS: Normal to inspection, nondistended, normoactive bowel sounds present and non-tender Extremity: COMMON NORMALS: no pedal edema Neuro: COMMON NORMALS: patient oriented x3 Psych: COMMON NORMALS: mental status grossly normal Urinary Catheter Management: Akhtar: Cath Placed During This Visit: yes Reason for Continuing Indwelling Catheter: Accurate Measurement of Urinary Output in Critically Ill Patients Urinary Catheter Date of Insertion: 02/19/23 Urinary Catheter Time of Insertion: 12:53 Data 02/22/23 02:24 02/22/23 02:24 A&P Assessment and plan (1) Acute exacerbation of chronic obstructive airways disease: (2) Respiratory failure, acute and chronic: (3) Pneumonia: (4) Iron deficiency anemia: (5) CKD (chronic kidney disease): (6) Type 2 diabetes mellitus: (7) NSTEMI (non-ST elevated myocardial infarction): (8) Low blood pressure: (9) Fluid overload: Plan 67 M with h/o COPD and chronic hypoxic resp failure p/w worsening dyspnea dand hypoxic resp failure needing to be placed on bipap support on arrival Acute hypoxic respiratory failure -Likely multifactorial from COPD exacerbation, and pneumonia -Patient's ER back and oxygen were positive for group B strep Plan -Moved to general medical floors -Wean off BiPAP during the day, schedule during the night -Bedside speech swallow eval, advance as tolerated -Continue Zosyn, azithromycin -Follow blood cultures, sputum cultures -Continue Decadron -Monitor blood sugars closely -Full code -Heparin for DVT prophylaxis -We will give another dose of Lasix today, as BNP is elevated, creatinine 1.5 Pneumonia, with group B strep urine, HIV negative, hep C negative Type 2 diabetes mellitus, continue low-dose sliding scale -Blood sugars remain elevated start Lantus 10 units twice daily NSTEMI -Likely type II NSTEMI from supply demand ischemia, no chest pain complaints -Continue telemetry monitoring -Cardiac echo ?LV systolic function is normal with EF of 55 to 60%. ?Trace mitral regurgitation ?Mild tricuspid regurgitation ?Compared to prior echocardiogram from 2021, no significant ?changes are seen -Monitor Chronic kidney disease, monitor urine output Potassium 5.3 monitor Iron deficiency anemia, Protonix, Carafate, monitor hemoglobin closely Soft blood pressures lactic acid within normal limits, no reported bloody or black stools, monitor, alert oriented x3, following all commands Plan for today, give 1 dose of Lasix, continue antibiotic treatments, continue to clinically monitor respiratory status, up out of bed, monitor diuresis, monitor urine output Spoke to nursing staff, spoke to patient Attestations Medical Necessity Statement*: Patient requires hospitalization for acute hypoxic respiratory failure, secondary to pneumonia, now with fluid overload requiring diuresis Diagnoses Acute exacerbation of chronic obstructive airways disease J44.1 Respiratory failure, acute and chronic J96.20 Pneumonia J18.9 Iron deficiency anemia D50.9 CKD (chronic kidney disease) N18.9 Type 2 diabetes mellitus E11.9 NSTEMI (non-ST elevated myocardial infarction) I21.4 Low blood pressure I95.9 Fluid overload E87.70
[2023-02-22 20:23] LABS: Glucose Point of Care 302 mg/dL (70-110)
[2023-02-22] MEDS: atorvastatin 40 mg Tablet PO (20:25)
[2023-02-22] MEDS: tamsulosin 0.4 mg Capsule PO (20:25)
[2023-02-23] VITALS (10 sets, daily range): BP systolic 107–154; BP diastolic 60–83; PULSE 59–83; RESP 14–18; TEMP 36.4–37.2; O2SAT 92–96
[2023-02-23] MEDS: piperacillin-tazobactam 3.375 GM in sodium chloride 0.9% (plus) 50 ML IV ×2 (00:39→08:34)
[2023-02-23] MEDS: heparin 5,000 unit/mL INJ 1 mL 5000 UNIT SUBCUT ×2 (01:25→14:08)
[2023-02-23] MEDS: insulin glargine 100 units/1 mL 10 UNIT SUBCUT (01:25)
[2023-02-23 04:30] LABS: Basophils # 0.1 10^3/uL (0.0-0.1); Basophils % 0.4 %; Eosinophils # 0.5 10^3/uL (0.0-0.8); Eosinophils % 2.5 %; Hematocrit 41.3 % (42.0-52.0); Hemoglobin 12.1 g/dL (11.7-16.6); Lymphocytes # 4.8 10^3/uL (0.8-4.8); Lymphocytes % 27.3 %; Mean Corpuscular HGB Conc 29.3 g/dL (30.0-36.0); Mean Corpuscular Volume 78.7 fl (80-94); Monocytes # 1.6 10^3/uL (0.2-0.9); Neutrophils # 10.35 10^3/uL (1.8-7.7); Neutrophils % 58.5 %; Nucleated Red Blood Cells % 0 %; Platelet Count 361 10^3/cmm (130-400); Red Blood Count 5.25 10^6/uL (4.1-5.3); Red Cell Distribution Width 17.1 % (12.1-15.1); White Blood Count 17.7 10^3/uL (4.0-10.0)
[2023-02-23 05:00] LABS: NT Pro B Type Natriuretic Pept 924 pg/mL (0-125); Procalcitonin 0.72 ng/mL (0-0.5)
[2023-02-23 05:11] LABS: Alanine Aminotransferase 18 U/L (0-41); Albumin Level 2.9 g/dL (3.5-5.2); Alkaline Phosphatase 97 U/L (40-130); Anion Gap 12.6 (5-19); Aspartate Amino Transferase 14 U/L (0-40); Blood Urea Nitrogen 32 mg/dL (8-23); C Reactive Protein 36.2 mg/L (0.0-4.9); Calcium 9.1 mg/dL (8.5-10.5); Carbon Dioxide 32 mmol/L (22-29); Chloride 95 mmol/L (98-107); Globulin 4.2 g/dL (1.3-4.6); Glucose 196 mg/dL (65-115); Magnesium 1.6 mg/dL (1.7-2.3); Osmolality Calculated 292 mOsm/kg (285-295); Phosphorus 3.1 mg/dL (2.5-4.5); Potassium 4.6 mmol/L (3.5-5.1); Sodium 135 mmol/L (136-145); Total Bilirubin 0.3 mg/dL (0.15-1.2); Total Protein 7.1 g/dL (6.6-8.7)
[2023-02-23] MEDS: dexamethasone 4 mg/mL INJ 6 MG IVP (06:18)
[2023-02-23 06:38] LABS: Glucose Point of Care 272 mg/dL (70-110)
[2023-02-23] MEDS: ipratropium-albuterol 3 mL Neb INHALATION ×2 (07:53→13:33)
[2023-02-23] MEDS: budesonide 0.5 mg/2 mL Neb INHALATION (07:53)
[2023-02-23] MEDS: mirtazapine 30 mg Tablet 15 MG PO (08:33)
[2023-02-23] MEDS: BuSPIRONE 10 mg Tablet PO ×3 (08:33→21:12)
[2023-02-23] MEDS: venlafaxine ER (24HR) 75 mg Capsule PO (08:33)
[2023-02-23] MEDS: docusate sodium 100 mg Capsule PO ×2 (08:33→17:42)
[2023-02-23] MEDS: magnesium lactate 84 mg Tablet PO (08:33)
[2023-02-23] MEDS: aspirin 81 mg EC Tablet PO (08:33)
[2023-02-23] MEDS: ferrous sulfate EC 325 mg Tablet PO (08:33)
[2023-02-23] MEDS: citalopram 20 mg Tablet PO (08:33)
[2023-02-23] MEDS: sucralfate 1 gm Tablet PO ×2 (08:33→21:12)
[2023-02-23] MEDS: montelukast sodium 10 mg Tablet PO (08:33)
[2023-02-23] MEDS: guaiFENesin 600 mg Tablet PO ×2 (08:33→21:12)
[2023-02-23] MEDS: metoprolol tartrate 25 mg Tablet PO ×2 (08:34→17:42)
[2023-02-23] MEDS: insulin lispro 100 unit/1 mL SUBCUT ×4 (08:36→21:12)
[2023-02-23] MEDS: iron sucrose 200 MG in sodium chloride 0.9% (100 ml) 100 ML 220 MG IV (09:24)
[2023-02-23 11:15] LABS: SARS Covid-2 Antigen negative (Negative)
[2023-02-23 11:23] LABS: Glucose Point of Care 574 mg/dL (70-110)
[2023-02-23] MEDS: insulin glargine 100 units/1 mL 15 UNIT SUBCUT (12:41)
[2023-02-23 12:57] LABS: Glucose Point of Care 487 mg/dL (70-110)
[2023-02-23 14:11] LABS: Glucose Point of Care 439 mg/dL (70-110)
[2023-02-23] MEDS: insulin lispro 100 unit/1 mL 10 UNIT SUBCUT (14:24)
--- NOTE | 2023-02-23 14:29 | PM.PN ---
Subjective Subjective: Patient was seen this morning, overall he feels better, no fevers overnight Vitals/I&O/Wt Last Vital Signs Temp 98.3 F 02/23/23 11:56 Pulse 67 02/23/23 13:36 Resp 16 02/23/23 13:36 BP 142/83 02/23/23 11:56 Pulse Ox 94 02/23/23 13:36 O2 Del Method Nasal Cannula 02/23/23 13:36 O2 Flow Rate 4 02/23/23 13:36 FiO2 35 02/21/23 06:00 02/22/23 02/23/23 02/23/23 22:59 06:59 14:59 Intake Total 410 / 460 1010 / 1470 640 / 640 Output Total 1350 / 1350 1700 / 3050 Balance -940 / -890 -690 / -1580 640 / 640 Weight last 48 hrs Weight 89.131 kg Weight 97.522 kg Physical Exam Const: COMMON NORMALS: no acute distress and patient oriented x3 Resp: COMMON NORMALS: normal respiratory effort, No retractions, No use of accessory muscles and clear to auscultation bilaterally AUSCULTATION: clear to auscultation bilaterally Cardio: COMMON NORMALS: regular rate, regular rhythm, S1 normal heart sound present and S2 normal heart sound present RATE: regular rate RHYTHM: regular rhythm HEART SOUNDS: S1 normal heart sound present and S2 normal heart sound present GI: COMMON NORMALS: Normal to inspection, nondistended, normoactive bowel sounds present and non-tender Extremity: COMMON NORMALS: no pedal edema Neuro: COMMON NORMALS: patient oriented x3 Psych: COMMON NORMALS: mental status grossly normal Urinary Catheter Management: Akhtar: Cath Placed During This Visit: yes Reason for Continuing Indwelling Catheter: Other Urinary Catheter Date of Insertion: 02/19/23 Urinary Catheter Time of Insertion: 12:53 Data 02/23/23 04:05 02/23/23 04:05 A&P Assessment and plan (1) Acute exacerbation of chronic obstructive airways disease: (2) Respiratory failure, acute and chronic: (3) Pneumonia: (4) Iron deficiency anemia: (5) CKD (chronic kidney disease): (6) Type 2 diabetes mellitus: (7) NSTEMI (non-ST elevated myocardial infarction): (8) Low blood pressure: (9) Fluid overload: Plan 67 M with h/o COPD and chronic hypoxic resp failure p/w worsening dyspnea dand hypoxic resp failure needing to be placed on bipap support on arrival Acute hypoxic respiratory failure -Likely multifactorial from COPD exacerbation, and pneumonia -Patient's ER back and oxygen were positive for group B strep Plan -Moved to general medical floors -Wean off BiPAP during the day, schedule during the night -Bedside speech swallow eval, advance as tolerated -We will wean him down to Augmentin -Follow blood cultures, sputum cultures -Stop Decadron, replace magnesium -Monitor blood sugars closely -Full code -Heparin for DVT prophylaxis -Hold off on Lasix for today, diuresed over 5 L Pneumonia, with group B strep urine, HIV negative, hep C negative Type 2 diabetes mellitus, continue low-dose sliding scale -Persistently is hyperglycemic will give additional doses of insulin increase Lantus to 15 units twice daily NSTEMI -Likely type II NSTEMI from supply demand ischemia, no chest pain complaints -Continue telemetry monitoring -Cardiac echo ?LV systolic function is normal with EF of 55 to 60%. ?Trace mitral regurgitation ?Mild tricuspid regurgitation ?Compared to prior echocardiogram from 2021, no significant ?changes are seen -Monitor Chronic kidney disease, monitor urine output Potassium, monitor Iron deficiency anemia, Protonix, Carafate, monitor hemoglobin closely Soft blood pressures lactic acid within normal limits, no reported bloody or black stools, monitor, alert oriented x3, following all commands Plan for today, de-escalate antibiotic therapy, monitor for fluid overload, blood sugar control stop Decadron, replace magnesium, does have evidence of iron deficiency anemia we will give 1 dose IV iron Attestations Medical Necessity Statement*: Patient requires hospitalization for pneumonia, fluid overload, hypomagnesemia, now with hyperglycemia Diagnoses Acute exacerbation of chronic obstructive airways disease J44.1 Respiratory failure, acute and chronic J96.20 Pneumonia J18.9 Iron deficiency anemia D50.9 CKD (chronic kidney disease) N18.9 Type 2 diabetes mellitus E11.9 NSTEMI (non-ST elevated myocardial infarction) I21.4 Low blood pressure I95.9 Fluid overload E87.70
[2023-02-23 15:43] LABS: Glucose Point of Care 321 mg/dL (70-110)
[2023-02-23 16:38] LABS: Glucose Point of Care 303 mg/dL (70-110)
[2023-02-23] MEDS: pantoprazole DR 40 mg Tablet PO (17:42)
[2023-02-23] MEDS: amoxicillin-clav 875-125 mg Tablet 1 TAB PO (17:42)
[2023-02-23 20:56] LABS: Glucose Point of Care 162 mg/dL (70-110)
[2023-02-23] MEDS: tamsulosin 0.4 mg Capsule PO (21:12)
[2023-02-23] MEDS: atorvastatin 40 mg Tablet PO (21:12)
[2023-02-24] VITALS (9 sets, daily range): BP systolic 113–147; BP diastolic 65–86; PULSE 62–106; RESP 16–22; TEMP 36.7–37.2; O2SAT 91–97
[2023-02-24] MEDS: insulin glargine 100 units/1 mL 15 UNIT SUBCUT ×2 (00:13→11:33)
[2023-02-24 00:18] LABS: Glucose Point of Care 184 mg/dL (70-110)
[2023-02-24] MEDS: zolpidem 5 mg Tablet 2.5 MG PO (00:49)
[2023-02-24] MEDS: ipratropium-albuterol 3 mL Neb INHALATION ×3 (01:02→13:39)
[2023-02-24] MEDS: heparin 5,000 unit/mL INJ 1 mL 5000 UNIT SUBCUT (03:09)
[2023-02-24 06:31] LABS: Basophils # 0.1 10^3/uL (0.0-0.1); Basophils % 0.4 %; Eosinophils % 5.2 %; Hematocrit 41.9 % (42.0-52.0); Hemoglobin 12.4 g/dL (11.7-16.6); Lymphocytes # 5.3 10^3/uL (0.8-4.8); Lymphocytes % 27.9 %; Mean Corpuscular HGB Conc 29.6 g/dL (30.0-36.0); Mean Corpuscular Hemoglobin 23.1 pg (28.0-34.0); Mean Corpuscular Volume 78.2 fl (80-94); Mean Platelet Volume 9.2 fL (7.4-10.4); Monocytes # 1.6 10^3/uL (0.2-0.9); Monocytes % 8.7 %; Neutrophils % 54.8 %; Nucleated Red Blood Cells % 0 %; Platelet Count 373 10^3/cmm (130-400); Red Blood Count 5.36 10^6/uL (4.1-5.3); Red Cell Distribution Width 17.2 % (12.1-15.1); White Blood Count 18.8 10^3/uL (4.0-10.0)
[2023-02-24 06:48] LABS: Glucose Point of Care 278 mg/dL (70-110)
[2023-02-24 07:03] LABS: Alanine Aminotransferase 19 U/L (0-41); Albumin Level 3.1 g/dL (3.5-5.2); Alkaline Phosphatase 105 U/L (40-130); Anion Gap 13.1 (5-19); Aspartate Amino Transferase 11 U/L (0-40); Blood Urea Nitrogen 39 mg/dL (8-23); Calcium 9.5 mg/dL (8.5-10.5); Carbon Dioxide 34 mmol/L (22-29); Chloride 92 mmol/L (98-107); Glomerular Filtration Rate 38.1 mL/min (90-130); Glucose 316 mg/dL (65-115); Magnesium 1.5 mg/dL (1.7-2.3); NT Pro B Type Natriuretic Pept 444 pg/mL (0-125); Osmolality Calculated 299 mOsm/kg (285-295); Phosphorus 3.3 mg/dL (2.5-4.5); Potassium 5.1 mmol/L (3.5-5.1); Sodium 134 mmol/L (136-145); Total Bilirubin 0.2 mg/dL (0.15-1.2); Total Protein 7.1 g/dL (6.6-8.7)
[2023-02-24] MEDS: budesonide 0.5 mg/2 mL Neb INHALATION (07:23)
[2023-02-24] MEDS: aspirin 81 mg EC Tablet PO (08:48)
[2023-02-24] MEDS: sucralfate 1 gm Tablet PO (08:48)
[2023-02-24] MEDS: magnesium lactate 84 mg Tablet PO (08:48)
[2023-02-24] MEDS: amoxicillin-clav 875-125 mg Tablet 1 TAB PO (08:48)
[2023-02-24] MEDS: guaiFENesin 600 mg Tablet PO (08:48)
[2023-02-24] MEDS: ferrous sulfate EC 325 mg Tablet PO (08:48)
[2023-02-24] MEDS: montelukast sodium 10 mg Tablet PO (08:49)
[2023-02-24] MEDS: BuSPIRONE 10 mg Tablet PO (08:49)
[2023-02-24] MEDS: venlafaxine ER (24HR) 75 mg Capsule PO (08:49)
[2023-02-24] MEDS: metoprolol tartrate 25 mg Tablet PO (08:49)
[2023-02-24] MEDS: docusate sodium 100 mg Capsule PO (08:49)
[2023-02-24] MEDS: pantoprazole DR 40 mg Tablet PO (08:49)
[2023-02-24] MEDS: citalopram 20 mg Tablet PO (08:49)
[2023-02-24] MEDS: mirtazapine 30 mg Tablet 15 MG PO (08:51)
[2023-02-24] MEDS: insulin lispro 100 unit/1 mL SUBCUT ×2 (08:51→11:33)
--- NOTE | 2023-02-24 09:47 | P.DS_ITS ---
Discharge Providers Date of Admission: 02/19/23 00:23 Date of Discharge: February 24, 2023 Attending Provider at Admission: Antonia Naranjo MD Attending Provider at Discharge: Uli Emery MD Primary Care Provider: Alfredito Muro DO Diagnoses at Discharge Discharge Diagnosis (1) Acute exacerbation of chronic obstructive airways disease: Status: Acute (2) Respiratory failure, acute and chronic: Status: Acute (3) Pneumonia: Status: Acute (4) Iron deficiency anemia: Status: Acute (5) CKD (chronic kidney disease): Status: Acute (6) Type 2 diabetes mellitus: Status: Acute (7) NSTEMI (non-ST elevated myocardial infarction): Status: Acute (8) Low blood pressure: Status: Acute (9) Fluid overload: Status: Acute Reason for Visit Reason for Visit: SOB Hospital Course Hospital Course Marlo Gleason is a 67 year old male with PMH anemia, anxiety, COPD, CAD, CKD, GERD, hyperlipidemia, diabetes. He presnts today with c/o increased cough and dyspnea over the past 4-5 days. 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 he was found to be in respiratory distress upon ER arrival ans placed on Bipap. Denies any fever. ROS oherwise limited due to patient being on continuous Bipap Patient was admitted to [facility] for acute hypoxic respiratory failure secondary COPD, pneumonia, overall patient clinically improved, cultures all remain unremarkable, blood cultures, sputum cultures, remained afebrile, discharged on Augmentin. Patient's urine bacterial antigens were positive for group B strep, however his cultures remain unremarkable, managed with penicillin antibiotics during hospitalization discharged on Augmentin Patient did have hyperglycemia throughout his hospitalization likely secondary Decadron, which was stopped, discharged on Lantus 15 units twice daily, any insulin planning scale Iron deficient anemia, discharged on Protonix, Carafate, monitor hemoglobin closely as outpatient Patient did have persistent leukocytosis during his hospitalization, remains afebrile cultures remain unremarkable he has been feeling well for the last 48 hours and kept him for an extra 2 days to ensure that there was no other explanation for the leukocytosis except the Decadron that he received, shelter should monitor white blood cell count on discharge, discharged on 3 L, Physical Exam Const: COMMON NORMALS: no acute distress and patient oriented x3 Resp: COMMON NORMALS: normal respiratory effort, No retractions, No use of accessory muscles and clear to auscultation bilaterally AUSCULTATION: clear to auscultation bilaterally Cardio: COMMON NORMALS: regular rate, regular rhythm, S1 normal heart sound present and S2 normal heart sound present RATE: regular rate RHYTHM: regular rhythm HEART SOUNDS: S1 normal heart sound present and S2 normal heart sound present GI: COMMON NORMALS: Normal to inspection, nondistended, normoactive bowel sounds present and non-tender Extremity: COMMON NORMALS: no clubbing, cyanosis or edema, no calf tenderness and no pedal edema Neuro: COMMON NORMALS: patient oriented x3 Psych: COMMON NORMALS: mental status grossly normal Urinary Catheter Management: Akhtar: Cath Placed During This Visit: yes, but has since been removed by the nurse Reason for Continuing Indwelling Catheter: Acute Urinary Retention or Obstruction Urinary Catheter Date of Insertion: 02/19/23 Urinary Catheter Time of Insertion: 12:53 Date Urinary Catheter Removed: 02/23/23 Time Urinary Catheter Discontinued: 20:30 Discharge Data Studies Completed and Pending Completed Studies During Hospitalization Category Date Time Status CT chest wo con [id number] Urgent Cat Scan 02/19/23 09:49 Completed XR chest 1V portable [id number] Stat Exams 02/18/23 22:50 Completed CV. echo complete* [id number] Routine Ultrasound 02/19/23 09:49 Completed Pending at discharge Category Date Time Status Complete Blood Count w/Auto AM LABS Lab 02/25/23 04:00 Ordered Complete Blood Count w/Auto AM LABS Lab 02/26/23 04:00 Ordered Comprehensive Metabolic Panel AM LABS Lab 02/25/23 04:00 Ordered Comprehensive Metabolic Panel AM LABS Lab 02/26/23 04:00 Ordered Magnesium AM LABS Lab 02/25/23 04:00 Ordered Magnesium AM LABS Lab 02/26/23 04:00 Ordered NT Pro B Type Natriuretic Pept QAM Lab 02/25/23 06:00 Ordered NT Pro B Type Natriuretic Pept QAM Lab 02/26/23 06:00 Ordered Phosphorus AM LABS Lab 02/25/23 04:00 Ordered Phosphorus AM LABS Lab 02/26/23 04:00 Ordered Sputum Culture and Gram Stain Stat Lab 02/19/23 10:08 Uncollected Radiology Impressions Chest X-Ray 02/18/23 22:50 IMPRESSION: 1. Trace bilateral right greater than left pleural effusions. 2. Emphysematous changes. 3. Bibasilar atelectasis versus infiltrate. Chest CT 02/19/23 09:49 IMPRESSION: 1. Extensive lower lobe airway changes with diffuse bronchiectasis, bronchiolitis and peribronchial consolidation/fibrosis overall not significantly changed in overall severity from previous examination. 2. Stable irregular subpleural densities right lung believed secondary to chronic subsegmental atelectasis and scarring. 3. COPD with diffuse upper lobe emphysematous changes, stable. 4. Mild mediastinal lymphadenopathy, unchanged favoring benign etiology. Follow-up as clinically indicated. COMMENTS: In the absence of a history or active diagnosis of lung cancer, it is recommended that this patient with emphysema be evaluated for enrollment in a low dose CT lung cancer screening program. Laboratory Results WBC 18.8 10^3/uL (4.0-10.0) H 02/24/23 06:06 RBC 5.36 10^6/uL (4.1-5.3) H 02/24/23 06:06 Hgb 12.4 g/dL (11.7-16.6) 02/24/23 06:06 Hct 41.9 % (42.0-52.0) L 02/24/23 06:06 MCV 78.2 fl (80-94) L 02/24/23 06:06 MCH 23.1 pg (28.0-34.0) L 02/24/23 06:06 MCHC 29.6 g/dL (30.0-36.0) L 02/24/23 06:06 RDW 17.2 % (12.1-15.1) H 02/24/23 06:06 Plt Count 373 10^3/cmm (130-400) 02/24/23 06:06 MPV 9.2 fL (7.4-10.4) 02/24/23 06:06 Neut % (Auto) 54.8 % 02/24/23 06:06 Lymph % (Auto) 27.9 % 02/24/23 06:06 [place] % (Auto) 8.7 % 02/24/23 06:06 Eos % (Auto) 5.2 % 02/24/23 06:06 Baso % (Auto) 0.4 % 02/24/23 06:06 Neut # (Auto) 10.30 10^3/uL (1.8-7.7) H 02/24/23 06:06 Lymph # (Auto) 5.3 10^3/uL (0.8-4.8) H 02/24/23 06:06 [place] # (Auto) 1.6 10^3/uL (0.2-0.9) H 02/24/23 06:06 Eos # (Auto) 1.0 10^3/uL (0.0-0.8) H 02/24/23 06:06 Baso # (Auto) 0.1 10^3/uL (0.0-0.1) 02/24/23 06:06 Nucleated RBC % (auto) 0 % 02/24/23 06:06 Nucleated RBCs # 0.0 /100WBC 02/24/23 06:06 D-Dimer 0.77 ug/mIFEU (0-0.59) H 02/18/23 22:55 Specimen Type Arterial 02/19/23 15:30 Sample Site Brachial, left 02/19/23 15:30 ABG pH 7.31 (7.35-7.45) L 02/19/23 15:30 ABG pCO2 58.2 mmHg (35-45) H 02/19/23 15:30 ABG pO2 79.1 mmHg (80.0-100.0) L 02/19/23 15:30 ABG HCO3 29.2 mmol/L (22-26) H 02/19/23 15:30 ABG O2 Saturation 96.8 02/19/23 15:30 ABG Base Excess 1.9 mmol/L (-2.0-2.0) 02/19/23 15:30 Baldo Test N/a 02/19/23 15:30 A-a O2 Gradient 12.8 mmHg (5-10) H 02/19/23 15:30 Hematocrit 34.6 % (42-52) L 02/19/23 15:30 Hgb O2 Saturation 95.0 % (95-100) 02/19/23 15:30 Carboxyhemoglobin 1.5 %THgb (0.4-20.1) 02/19/23 15:30 Methemoglobin 0.4 % (0.4-1.5) 02/19/23 15:30 Total Hemoglobin 11.3 g/dL (14-18) L 02/19/23 15:30 Sodium 135.0 mmol/L (131-143) 02/19/23 15:30 Potassium 4.5 mmol/L (3.5-5.0) 02/19/23 15:30 Glucose 224.0 mg/dL (70-115) H 02/19/23 15:30 Ionized Calcium 1.2 mmol/L (1.1-1.4) 02/19/23 15:30 O2 Delivery Device Bipap 02/19/23 15:30 O2 Liters/Min 15.0 % 02/18/23 22:55 FiO2 35.0 % 02/19/23 15:30 Laminating Machine Tender ID Gd 02/19/23 15:30 Sodium 134 mmol/L (136-145) L 02/24/23 06:06 Potassium 5.1 mmol/L (3.5-5.1) 02/24/23 06:06 Chloride 92 mmol/L (98-107) L 02/24/23 06:06 Carbon Dioxide 34 mmol/L (22-29) H 02/24/23 06:06 Anion Gap 13.1 (5-19) 02/24/23 06:06 BUN 39 mg/dL (8-23) H 02/24/23 06:06 Creatinine 1.8 mg/dL (0.7-1.2) H 02/24/23 06:06 GFR Calculation 38.1 mL/min (90-130) L 02/24/23 06:06 Glucose 316 mg/dL (65-115) H 02/24/23 06:06 POC Glucose 278 mg/dL (70-110) H 02/24/23 06:43 Estimat Average Glucose 206 02/20/23 03:56 Hemoglobin A1c 8.8 % (4.0-6.0) H 02/20/23 03:56 Calculated Osmolality 299 mOsm/kg (285-295) H 02/24/23 06:06 Lactic Acid 1.6 mmol/L (0.5-2.2) 02/20/23 08:43 Lactic Acid (Sepsis) 2.5 mmol/L (0.5-2.2) H 02/19/23 00:58 Calcium 9.5 mg/dL (8.5-10.5) 02/24/23 06:06 Phosphorus 3.3 mg/dL (2.5-4.5) 02/24/23 06:06 Magnesium 1.5 mg/dL (1.7-2.3) L 02/24/23 06:06 Iron 11 ug/dL (59-158) L 02/19/23 04:40 TIBC 156 mcg/dl 02/19/23 04:40 % Saturation 7.0 % (20-50) L 02/19/23 04:40 Unsat Iron Binding 145 ug/dL (112-347) 02/19/23 04:40 Ferritin 201 ng/mL (30-400) 02/20/23 08:43 Total Bilirubin 0.2 mg/dL (0.15-1.2) 02/24/23 06:06 AST 11 U/L (0-40) 02/24/23 06:06 ALT 19 U/L (0-41) 02/24/23 06:06 Alkaline Phosphatase 105 U/L (40-130) 02/24/23 06:06 Troponin T Baseline 39 ng/L (0-15) H 02/18/23 22:55 Troponin T 120 Minute 39.05 ng/L (0-15) H 02/19/23 00:58 Delta Troponin T 0.05 ABS# (0-10) 02/19/23 00:58 Troponin T Hi Sens 6Hr 31.95 ng/L (0-15) H 02/19/23 04:40 Troponin T Hi Sens 6Hr Delta -7.05 ng/L (0-12) L 02/19/23 04:40 C-Reactive Protein 36.2 mg/L (0.0-4.9) H 02/23/23 04:05 NT-Pro-B Natriuret Pep 444 pg/mL (0-125) H 02/24/23 06:06 Total Protein 7.1 g/dL (6.6-8.7) 02/24/23 06:06 Albumin 3.1 g/dL (3.5-5.2) L 02/24/23 06:06 Globulin 4.0 g/dL (1.3-4.6) 02/24/23 06:06 Triglycerides 75 mg/dL (0-150) 02/20/23 03:56 Cholesterol 88 mg/dL (0-200) 02/20/23 03:56 LDL Cholesterol, Calc 42 mg/dL (50-129) L 02/20/23 03:56 Total VLDL Cholesterol 15 mg/dL (0-30) 02/20/23 03:56 HDL Cholesterol 31 mg/dL (60-100) L 02/20/23 03:56 Cholesterol/HDL Ratio 2.84 mg/dL (1.0-5.00) 02/20/23 03:56 Vitamin B12 420 pg/mL (232-1245) 02/19/23 04:40 Folate 12.1 ng/mL (4.5-32.2) 02/20/23 03:56 Procalcitonin 0.72 ng/mL (0-0.5) H 02/23/23 04:05 TSH 0.69 uIU/mL (0.27-4.20) 02/19/23 04:40 Urine Color Straw (Yellow) 02/19/23 12:45 Urine Appearance Clear (CLEAR) 02/19/23 12:45 Urine pH 5 (5-7) 02/19/23 12:45 Ur Specific [place] 1.015 (1.005-1.030) 02/19/23 12:45 Urine Protein Neg (Negative) 02/19/23 12:45 Urine Glucose (UA) 4+ (Normal) H 02/19/23 12:45 Urine Ketones Negative (Negative) 02/19/23 12:45 Urine Blood 2+ (Negative) H 02/19/23 12:45 Urine Nitrate Negative (Negative) 02/19/23 12:45 Urine Bilirubin Neg (Negative) 02/19/23 12:45 Urine Urobilinogen Norm mg/dL (Negative) 02/19/23 12:45 Ur Leukocyte Esterase Negative (Negative) 02/19/23 12:45 Urine RBC 0-4 /hpf (0-2) H 02/19/23 12:45 Urine WBC Rare /hpf (0-5) 02/19/23 12:45 Ur Squamous Epith Cells None /hpf (0-5) 02/19/23 12:45 Amorphous Sediment Not Reportable 02/19/23 12:45 Urine Bacteria Trace /hpf (NONE) 02/19/23 12:45 Nasal Influ A H1 2008 PCR Not detected (NOT DETECT) 02/18/23 22:55 Adenovirus (PCR) Not detected (NOT DETECT) 02/18/23 22:55 C. pneumoniae DNA (PCR) Not detected (NOT DETECT) 02/18/23 22:55 Coronavirus 229E (PCR) Not detected (NOT DETECT) 02/18/23 22:55 Hepatitis A IgM Ab Non-reactive (Nonreactive) 02/20/23 08:43 Hep Bs Antigen Non-reactive (Nonreactive) 02/20/23 08:43 Hep B Core IgM Ab Non-reactive (Nonreactive) 02/20/23 08:43 Hepatitis C Antibody Non-reactive (Nonreactive) 02/20/23 08:43 HIV 1&2 Ab & HIV 1 Ag Non-reactive (Non-Reactiv) 02/20/23 08:43 HIV 1&2 Antibody Non-reactive (Non-Reactiv) 02/20/23 08:43 Human Metapneumovir PCR Not detected (NOT DETECT) 02/18/23 22:55 Influenza A (H1) PCR Not detected (NOT DETECT) 02/18/23 22:55 Influenza A (H3) PCR Not detected (NOT DETECT) 02/18/23 22:55 Influenza Type A (PCR) Not detected (NOT DETECT) 02/18/23 22:55 Influenza Type B (PCR) Not detected (NOT DETECT) 02/18/23 22:55 M. pneumoniae (PCR) Not detected (NOT DETECT) 02/18/23 22:55 Parainfluenza 1 (PCR) Not detected (NOT DETECT) 02/18/23 22:55 Parainfluenza 2 (PCR) Not detected (NOT DETECT) 02/18/23 22:55 Parainfluenza 3 (PCR) Not detected (NOT DETECT) 02/18/23 22:55 Parainfluenza 4 (PCR) Not detected (NOT DETECT) 02/18/23 22:55 RSV Type A (PCR) Not detected (NOT DETECT) 02/18/23 22:55 RSV Type B (PCR) Not detected (NOT DETECT) 02/18/23 22:55 Entero/Rhino (PCR) Not detected (NOT DETECT) 02/18/23 22:55 SARS-CoV-2 (PCR) Not detected (NOT DETECT) 02/18/23 22:55 SARS-CoV-2 Ag (Rapid) negative (Negative) 02/23/23 10:40 Vitals Last Vital Signs Temp 98.0 F 02/24/23 08:00 Pulse 92 02/24/23 08:00 Resp 16 02/24/23 08:00 BP 113/76 02/24/23 08:00 Pulse Ox 93 02/24/23 08:00 O2 Del Method Nasal Cannula 02/24/23 08:00 O2 Flow Rate 3 02/24/23 08:00 FiO2 35 02/21/23 06:00 Discharge Plan Discharge Patient Disposition: Xfer SNF Condition: Stable Prescriptions: New benzonatate 100 mg Capsule 100 mg PO TID PRN (Reason: Cough) 7 Days Qty: 21 0RF sucralfate 1 gram Tablet 1 g PO Q12H 30 Days Qty: 60 0RF magnesium L-lactate [Magtab] 84 mg Tablet Extended Release 84 mg PO DAILY 30 Days Qty: 30 0RF insulin aspart U-100 [Novolog FlexPen U-100 Insulin] 100 unit/mL (3 mL) insulin pen See Rx Instructions .ROUTE .COMPLEX Qty: 15 0RF Rx Instructions: inject subcut, three times daily, after meals, based on sliding scale provided pantoprazole 40 mg Tablet,Delayed Release (Dr/Ec) 40 mg PO BID 30 Days Qty: 60 0RF amoxicillin-pot clavulanate 875-125 mg Tablet 1 tab PO BID 5 Days Qty: 10 0RF Continued aspirin [Adult Low Dose Aspirin] 81 mg tablet,delayed release (DR/EC) 81 mg PO DAILY atorvastatin 40 mg tablet 40 mg PO BEDTIME buspirone 10 mg tablet 10 mg PO TID venlafaxine 75 mg capsule,extended release 24hr 75 mg PO DAILY metoprolol tartrate 25 mg tablet 25 mg PO BID Rx Instructions: Hold: Diastolic Blood Pressure <50, pulse is <50. Systolic Blood Pressure is <100 omeprazole 20 mg capsule,delayed release(DR/EC) 20 mg PO DAILY mirtazapine 30 mg tablet 15 mg PO DAILY tamsulosin 0.4 mg capsule 0.4 mg PO BEDTIME albuterol sulfate 2.5 mg /3 mL (0.083 %) solution for nebulization 2.5 mg inhalation Q4H PRN (Reason: shortness of breath) citalopram 10 mg tablet 20 mg PO DAILY cetirizine 5 mg tablet 5 mg PO DAILY ferrous sulfate 325 mg (65 mg iron) tablet 325 mg PO DAILY hydrocodone-acetaminophen 5-325 mg tablet 1 tab PO Q8H PRN (Reason: Moderate Pain (Scale Score 5-6)) polyethylene glycol 3350 [Miralax] 17 gram Powder In Packet 17 g PO DAILY PRN (Reason: Constipation) acetaminophen [Mapap Arthritis Pain] 650 mg Tablet Extended Release 650 mg PO Q6H PRN (Reason: pain) bisacodyl 10 mg Suppository 10 mg IN DAILY PRN (Reason: Constipation) Enema Disposable 19-7 gram/118 mL Enema 118 ml IN PRN PRN (Reason: Constipation) montelukast 10 mg tablet 10 mg PO DAILY insulin aspart U-100 [Novolog U-100 Insulin aspart] 100 unit/mL Solution 14 unit SUBCUT AC benzonatate 100 mg Capsule 100 mg PO TID PRN (Reason: Cough) Qty: 90 0RF Pulmicort 0.25 mg/2 mL Suspension For Nebulization 0.25 mg inhalation 2XD ipratropium bromide 0.02 % Solution 2.5 ml INHALATION QID nicotine 7 mg/24 hr Patch 24 Hour 1 patch TRANSDERMAL Q24H guaifenesin 600 mg Tablet Extended Release 12hr 600 mg PO Q12H Changed insulin glargine [Basaglar KwikPen U-100 Insulin] 100 unit/mL (3 mL) insulin pen 15 unit SUBCUT Q12H Qty: 15 0RF Discharge Orders: Discharge Order (Routine); Ordered 02/24/23 Ordered By: Uli Emery Referrals: [facility] [Outside] Alfredito Muro DO [Primary Care Provider] - Anshul Jacobo DO [Physician] - 2 weeks Discharge Diet: Diabetic Discharge Activity: Resume usual activity Patient Instructions: Opioid Safety Activity Restrictions/Additional Instructions: -Please monitor your blood sugars closely -Monitor your blood sugars 3 times daily as after meals -Please record your blood sugars, and a blood sugar log -For your NovoLog -Please inject blood sugar after meals based on sliding scale provided -Do not inject insulin if you do not eat as hypoglycemia kills -This is a NovoLog sliding scale -Insulin sliding ?fingerstick? Insulin ?141-180?0 units/sq 181-220?2 units/sq ?221-260?4 units/sq ?261-300 6 units/sq ?301-350?8 units/sq ?351-400 10 units/sq ?401-450?12 units/sq >450? 14units/sq -If your blood sugar is greater than 500 go to the emergency room -If your blood sugar is less than 60 or at anytime you feel lightheaded or dizzy or diaphoretic or have chest palpitations check your blood sugar, and eat a hard candy or drink orange juice and go immediately to the emergency room -Remember hypoglycemia kills, so if his blood sugar is less than 60 we have to increase it by taking in a sugary meal such as a hard candy or orange juice and go to the emergency room -If you have any questions please call us where here to help -Take Lantus 15 units twice daily -Recheck CBC in 48 hours -Recheck creatinine in 48 hours, creatinine at discharge 4.8 Discharge Attestations Time Spent in Discharge Care*: greater than 30 min Status at Discharge: Cognitive status at discharge: cognitively intact , Behavioral status at discharge: cooperative , Quality Metrics Clinical Quality Measures [ No reported AMI, CVA or VTE this stay] Coding Level of Care Code 01433 Total time (in minutes) for Discharge: 40 Diagnoses Acute exacerbation of chronic obstructive airways disease J44.1 Respiratory failure, acute and chronic J96.20 Pneumonia J18.9 Iron deficiency anemia D50.9 CKD (chronic kidney disease) N18.9 Type 2 diabetes mellitus E11.9 NSTEMI (non-ST elevated myocardial infarction) I21.4 Low blood pressure I95.9 Fluid overload E87.70
[2023-02-24 10:48] LABS: Glucose Point of Care 317 mg/dL (70-110)
--- NOTE | 2023-02-24 10:48 | PC.SOCIAL ---
IMM Update pg 2 of IMM updated and reviewed w/ patient. Copy provided and Copy in chart dated, and initialed.
== END 2023-02-24 14:29 | disposition skilled nursing facility (03) | DRG 190 ==
LOC: ER 02-19 00:23 → ICU 02-19 00:34 → MEDSURG 02-22 12:33
PROVIDERS: Emergency Medicine; Student in an Organized Health Care Education/Training Program; Admitting Provider Student in an Organized Health Care Education/Training Program; Emergency Provider Emergency Medicine; PCP Internal Medicine; Visit Provider Family Medicine
DX: J44.1 Chronic obstructive pulmonary disease with (acute) exacerbation (principal); I21.A1 Myocardial infarction type 2; J18.9 Pneumonia, unspecified organism; J96.22 Acute and chronic respiratory failure with hypercapnia; J96.21 Acute and chronic respiratory failure with hypoxia; N17.9 Acute kidney failure, unspecified; E87.1 Hypo-osmolality and hyponatremia; E87.4 Mixed disorder of acid-base balance; F17.210 Nicotine dependence, cigarettes, uncomplicated; Z99.81 Dependence on supplemental oxygen; J44.0 Chronic obstructive pulmonary disease with (acute) lower respiratory infection; K21.9 Gastro-esophageal reflux disease without esophagitis; I25.10 Atherosclerotic heart disease of native coronary artery without angina pectoris; I12.9 Hypertensive chronic kidney disease with stage 1 through stage 4 chronic kidney disease, or unspecified chronic kidney disease; E11.22 Type 2 diabetes mellitus with diabetic chronic kidney disease; E11.65 Type 2 diabetes mellitus with hyperglycemia; N18.9 Chronic kidney disease, unspecified; Z79.4 Long term (current) use of insulin; M10.9 Gout, unspecified; E11.51 Type 2 diabetes mellitus with diabetic peripheral angiopathy without gangrene; D50.9 Iron deficiency anemia, unspecified; Z28.310 Unvaccinated for COVID-19; E83.42 Hypomagnesemia; E87.70 Fluid overload, unspecified; E87.5 Hyperkalemia; I95.9 Hypotension, unspecified; Z79.82 Long term (current) use of aspirin; T38.0X5A Adverse effect of glucocorticoids and synthetic analogues, initial encounter
CPT/HCPCS: 36415; 36416; 36600; 51702; 71045; 71250; 80048; 80051; 80053; 80061; 80074; 81001; 82274; 82330; 82607; 82728; 82746; 82803; 82805; 82962; 83036; 83540; 83550; 83605; 83735; 83880; 84100; 84145; 84443; 84484; 85025; 85378; 86140; 86403; 87040; 87426; 87449; 87486; 87581; 87633; 87641; 87806; 93005; 93306; 94640; 94660; 94669; 96365; 96367; 96372; 96376; 99291; C9113; J0456; J0696; J1100; J1644; J1756; J1815; J1940; J2543; J3475; J3490; J7030; J7050; J7613; J7626

== ENCOUNTER → 2023-03-24 15:02 | Outpatient (BNVA) | payer MEDICARE, MEDICAID, SELFPAY | PROVIDERS: PCP Internal Medicine; Referring Provider Internal Medicine; Visit Provider Nurse Practitioner Family | DX: C44.319 Basal cell carcinoma of skin of other parts of face (principal); L81.4 Other melanin hyperpigmentation; D22.5 Melanocytic nevi of trunk; L85.3 Xerosis cutis; J44.9 Chronic obstructive pulmonary disease, unspecified | CPT/HCPCS: 11102; 99203 ==

== ENCOUNTER 2023-03-26 04:55 | Inpatient (IN) | payer MEDICARE, MEDICAID, SELFPAY ==
[2023-03-26] VITALS (117 sets, daily range): BP systolic 98–122; BP diastolic 55–80; PULSE 69–97; RESP 15–34; TEMP 36.5–37.1; O2SAT 87–98; BMI 28.8
--- NOTE | 2023-03-26 05:03 | ECG_ITS ---
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 Measurements Intervals [place] Rate: 90 P: 93 VA: 212 QRS: 99 QRSD: 98 T: 41 QT: 347 QTc: 427 Interpretive Statements SINUS RHYTHM WITH FIRST DEGREE AV BLOCK BORDERLINE RIGHT AXIS DEVIATION [QRS AXIS > 90] INCOMPLETE RIGHT BUNDLE BRANCH BLOCK [90+ ms QRS DURATION, TERMINAL R IN V1/V2, 40+ ms S IN I/aVL/V4/V5/V6] Compared to ECG 02/19/2023 05:20:04 Incomplete right bundle-branch block now present Electronically Signed On 03-26-2023 11:14:29 CDT by Tom Benavides M.D. [email or web address]
--- NOTE | 2023-03-26 05:11 | XRR_ITS ---
PROCEDURE INFORMATION: Exam: XR Chest Exam date and time: 03/26/2023 5:17 AM Age: 67 years old Clinical indication: Cough and shortness of breath; Patient HX: Cough with SOB. Copd. TECHNIQUE: Imaging protocol: Radiologic exam of the chest. Views: 1 view. COMPARISON: CT chest con [id number] 02/19/2023 12:18 PM FINDINGS: Lungs: Ill-defined opacity in the lower lungs bilaterally is similar in distribution compared to 02/18/2023. The opacities are more conspicuous currently than on the prior radiograph. There is relative hyperlucency in the upper lungs. Pleural spaces: No pneumothorax. The left lateral costophrenic sulcus is blunted. Heart/Mediastinum: Cardiomediastinal contours are unremarkable. Bones/joints: Bones are unremarkable. XR/XR chest 1V portable [id number] IMPRESSION: 1. Increased conspicuity of extensive bilateral lower lung opacities compared to 02/18/2023. Distribution of the abnormalities is similar. The difference may be related to increasing severity of chronic lung disease, an acute process superimposed on chronic lung disease, or differences in radiographic technique. 2. Possible small left pleural effusion.
--- NOTE | 2023-03-26 05:12 | W.ED.ANXIETY ---
HPI - Anxiety General: Chief Complaint: Anxiety Stated Complaint: LOW O2 SAT Time Seen by Provider: 03/26/23 04:56 Source: patient and EMS History of Present Illness: 67-year-old gentleman with short of breath in the [facility] this morning. He was wheezing on their exam. He was given 125 mg of Solu-Medrol, Ativan, IV, DuoNeb and albuterol treatments. He is feeling somewhat improved, although he says my head splits wide open with every cough . No fever. No sputum production. He does have a history of COPD. MD complaint: anxiety and shortness of breath Onset (ago): hour(s) Symptoms: dyspnea Severity: moderate Quality: intermittent Place: other History of similar episodes: Yes Relieving factors: medication Exacerbating factors: nothing Associated symptoms: Reports diaphoresis, headache(s), nausea, palpitations and short of breath; Deny chest pain, confusion, fever(s) or vomiting Review of Systems Const: Reports: diaphoresis; Denies: fever(s) ENMT: Reports: throat pain Card: Reports: palpitations; Denies: chest pain Resp: Reports: dyspnea and non-productive cough; Denies: productive cough GI: Reports: nausea; Denies: abdominal pain or vomiting Neuro: Reports: headache(s); Denies: confusion PFSH ED PFSH: Medical History Anxiety disorder CAD (coronary artery disease) CKD (chronic kidney disease) COPD (chronic obstructive pulmonary disease) COVID-19 vaccine dose not administered Diabetes mellitus GERD (gastroesophageal reflux disease) Gout Hypertension Mediastinal adenopathy On home oxygen therapy Usually on 2 L by nasal cannula Pneumonia Positive DENY (antinuclear antibody) Prostatic hypertrophy PVD (peripheral vascular disease) Skin cancer Specific type unknown Tobacco use Surgical History History of cholecystectomy History of coronary artery stent placement X2 History of skin surgery Left neck for skin cancer Presence of coronary angioplasty implant and graft Family History Mother Cancer Father CAD (coronary artery disease) Social History Smoking and tobacco status: current some day smoker cigarettes Years cigarettes smoked: 60 Quit status (tobacco): not considering quitting Second hand smoke exposure: Yes Alcohol intake: former Substance/Drug Use: never Caregiver/support person: Yes Lives independently: No Housing: Senior Living Marital status: / service: No Current occupational status: disabled Pets and animals: Yes Do you think of yourself as: Straight/Heterosexual Current gender identity: Male Physical Exam Const: COMMON NORMALS: alert EXAM LIMITATIONS: no altered mental status GENERAL APPEARANCE: cooperative and ill appearing (Mildly) HENMT: COMMON NORMALS: normocephalic, atraumatic and hearing grossly normal bilaterally HEAD & SCALP: normocephalic and atraumatic FACE & SINUS: normal facial exam NOSE: Normal nares present Eye: COMMON NORMALS: Equal, round and reactive pupils present and EOMs intact bilaterally PUPIL: Yes Equal, round and reactive pupils present Neck/C-Spine: COMMON NORMALS: supple GENERAL: Yes trachea midline Chest: COMMONS NORMALS: normal inspection of the chest CHEST: Yes Symmetrical chest wall rise Resp: EFFORT & INSPECTION: Yes tachypneic AUSCULTATION: wheezes expiratory wheezes Cardio: COMMON NORMALS: regular rate and regular rhythm RATE: regular rate RHYTHM: regular rhythm GI: COMMON NORMALS: Normal to inspection, nondistended, normoactive bowel sounds present and Soft to palpation PALPATION: Yes Soft to palpation Extremity: COMMON NORMALS: no pedal edema Neuro: SUJATHA COMA SCALE: document GCS findings [place] coma scale eye opening: Spontaneous [place] coma scale verbal response: Orientated Sujatha coma scale motor response: Obey commands Sujatha coma scale total score: 15 SENSORIUM/ORIENTATION: Yes alert CRANIAL NERVES: Yes CN normal except as noted Psych: COMMON NORMALS: cooperative Course Vital Signs: Vital signs: Vital Signs Temperature 98.7 F 03/26/23 04:55 Pulse Rate 73 03/26/23 14:00 Respiratory Rate 20 H 03/26/23 12:10 Blood Pressure 110/66 03/26/23 12:10 Pulse Oximetry 97 03/26/23 12:10 Oxygen Delivery Me thod Nasal Cannula 03/26/23 12:09 Oxygen Flow Rate 6 03/26/23 12:09 Fraction of Inspir ed Oxygen 40 03/26/23 14:00 MDM - Anxiety Medical Decision Making Patient given another DuoNeb treatment here. He still wheezing. Off of oxygen, he was satting 75% by pulse ox. This is increased to 91% on 4 L. CBC is normal. Blood gas shows a pH of 7.39 with chronic retention PaCO2 of 61 bicarb of 37 and a PO2 of 36. Again, this was while he was on room air. Chest x-ray shows bilateral infiltrates. BNP and CMP are pending. He will require admission. He is beginning to get fatigued to some degree although his mentation is still good. O2 levels have dropped to 87% on 4L. He'll be placed on bipap. He will require icu given his respiratory status. He has been covered with vanc and zosyn for bilateral infiltrates. Spoke with hospitalist. She agrees to admission. Day team will see the patient. Lab Data 03/26/23 05:30 03/26/23 05:30 Radiology Impressions Chest X-Ray 03/26/23 05:11 IMPRESSION: 1. Increased conspicuity of extensive bilateral lower lung opacities compared to 02/18/2023. Distribution of the abnormalities is similar. The difference may be related to increasing severity of chronic lung disease, an acute process superimposed on chronic lung disease, or differences in radiographic technique. 2. Possible small left pleural effusion. Laboratory Results WBC 9.0 10^3/uL (4.0-10.0) 03/26/23 05:30 RBC 5.09 10^6/uL (4.1-5.3) 03/26/23 05:30 Hgb 11.9 g/dL (11.7-16.6) 03/26/23 05:30 Hct 42.1 % (42.0-52.0) 03/26/23 05:30 MCV 82.7 fl (80-94) 03/26/23 05:30 MCH 23.4 pg (28.0-34.0) L 03/26/23 05:30 MCHC 28.3 g/dL (30.0-36.0) L 03/26/23 05:30 RDW 16.7 % (12.1-15.1) H 03/26/23 05:30 Plt Count 284 10^3/cmm (130-400) 03/26/23 05:30 MPV 9.0 fL (7.4-10.4) 03/26/23 05:30 Neut % (Auto) 69.7 % 03/26/23 05:30 Lymph % (Auto) 19.3 % 03/26/23 05:30 [place] % (Auto) 9.1 % 03/26/23 05:30 Eos % (Auto) 0.7 % 03/26/23 05:30 Baso % (Auto) 0.3 % 03/26/23 05:30 Neut # (Auto) 6.29 10^3/uL (1.8-7.7) 03/26/23 05:30 Lymph # (Auto) 1.7 10^3/uL (0.8-4.8) 03/26/23 05:30 [place] # (Auto) 0.8 10^3/uL (0.2-0.9) 03/26/23 05:30 Eos # (Auto) 0.1 10^3/uL (0.0-0.8) 03/26/23 05:30 Baso # (Auto) 0.0 10^3/uL (0.0-0.1) 03/26/23 05:30 Nucleated RBC % (auto) 0 % 03/26/23 05:30 Nucleated RBCs # 0.0 /100WBC 03/26/23 05:30 Specimen Type Arterial 03/26/23 05:33 Sample Site Radial, right 03/26/23 05:33 ABG pH 7.39 (7.35-7.45) 03/26/23 05:33 ABG pCO2 61.4 mmHg (35-45) H* 03/26/23 05:33 ABG pO2 35.7 mmHg (80.0-100.0) L* 03/26/23 05:33 ABG HCO3 37.2 mmol/L (22-26) H 03/26/23 05:33 ABG Base Excess 10.1 mmol/L (-2.0-2.0) H 03/26/23 05:33 Baldo Test Pos 03/26/23 05:33 Hematocrit 36.4 % (42-52) L 03/26/23 05:33 Hgb O2 Saturation 71.0 % (95-100) L 03/26/23 05:33 Carboxyhemoglobin 1.6 %THgb (0.4-20.1) 03/26/23 05:33 Methemoglobin 0.3 % (0.4-1.5) L 03/26/23 05:33 Total Hemoglobin 11.9 g/dL (14-18) L 03/26/23 05:33 O2 Delivery Device None 03/26/23 05:33 FiO2 21.0 % 03/26/23 05:33 Emergency Room Physician ID [email or web address] 03/26/23 05:33 Sodium 133 mmol/L (136-145) L 03/26/23 05:30 Potassium 4.7 mmol/L (3.5-5.1) 03/26/23 05:30 Chloride 93 mmol/L (98-107) L 03/26/23 05:30 Carbon Dioxide 32 mmol/L (22-29) H 03/26/23 05:30 Anion Gap 12.7 (5-19) 03/26/23 05:30 BUN 22 mg/dL (8-23) 03/26/23 05:30 Creatinine 1.6 mg/dL (0.7-1.2) H 03/26/23 05:30 GFR Calculation 43.6 mL/min (90-130) L 03/26/23 05:30 Glucose 132 mg/dL (65-115) H 03/26/23 05:30 Estimat Average Glucose 209 03/26/23 05:30 Hemoglobin A1c 8.9 % (4.0-6.0) H 03/26/23 05:30 Calculated Osmolality 281 mOsm/kg (285-295) L 03/26/23 05:30 Lactic Acid 1.2 mmol/L (0.5-2.2) 03/26/23 05:30 Calcium 8.4 mg/dL (8.5-10.5) L 03/26/23 05:30 Total Bilirubin 0.3 mg/dL (0.15-1.2) 03/26/23 05:30 AST 12 U/L (0-40) 03/26/23 05:30 ALT 9 U/L (0-41) 03/26/23 05:30 Alkaline Phosphatase 98 U/L (40-130) 03/26/23 05:30 C-Reactive Protein 155.4 mg/L (0.0-4.9) H 03/26/23 05:30 NT-Pro-B Natriuret Pep 1340 pg/mL (0-125) H 03/26/23 05:30 Total Protein 7.4 g/dL (6.6-8.7) 03/26/23 05:30 Albumin 2.7 g/dL (3.5-5.2) L 03/26/23 05:30 Globulin 4.7 g/dL (1.3-4.6) H 03/26/23 05:30 Procalcitonin 0.34 ng/mL (0-0.5) 03/26/23 05:30 TSH 1.02 uIU/mL (0.27-4.20) 03/26/23 05:30 Urine Color Yellow (Yellow) 03/26/23 06:20 Urine Appearance Clear (CLEAR) 03/26/23 06:20 Urine pH 5 (5-7) 03/26/23 06:20 Ur Specific [place] 1.020 (1.005-1.030) 03/26/23 06:20 Urine Protein Neg (Negative) 03/26/23 06:20 Urine Glucose (UA) Norm (Normal) 03/26/23 06:20 Urine Ketones Negative (Negative) 03/26/23 06:20 Urine Blood 3+ (Negative) H 03/26/23 06:20 Urine Nitrate Negative (Negative) 03/26/23 06:20 Urine Bilirubin Neg (Negative) 03/26/23 06:20 Urine Urobilinogen Norm mg/dL (Negative) 03/26/23 06:20 Ur Leukocyte Esterase Negative (Negative) 03/26/23 06:20 Urine RBC 0-4 /hpf (0-2) H 03/26/23 06:20 Urine WBC None /hpf (0-5) 03/26/23 06:20 Ur Squamous Epith Cells None /hpf (0-5) 03/26/23 06:20 Amorphous Sediment Not Reportable 03/26/23 06:20 Urine Bacteria 1+ /hpf (NONE) H 03/26/23 06:20 Coarse Granular Casts 0-4 /lpf H 03/26/23 06:20 SARS-CoV-2 Ag (Rapid) negative (Negative) 03/26/23 05:14 Critical Care Time Critical Care Time: Critical Care Time: Yes Total Critical Care Time: 35 Attestation: This case had a high probability of a clinically significant, sudden, or life threatening deterioration of this patient's condition which required my full and direct attention, intervention and personal management. Time is independent of any procedures performed. Discharge Plan Discharge Patient Disposition: Admitted As Inpatient Admit Provider: Luzma Blevins Clinical Impression: CKD (chronic kidney disease), Acute and chronic respiratory failure with hypoxia Condition: Serious Coding Level of Care Code ED Starter Mechanic for Naresh Pepper
[2023-03-26] MEDS: ipratropium-albuterol 3 mL Neb INHALATION ×4 (05:30→20:42)
[2023-03-26 05:34] LABS: SARS Covid-2 Antigen negative (Negative)
[2023-03-26] MEDS: piperacillin-tazobactam 4.5 GM in sodium chloride 0.9% (plus) 50 ML IV (05:36)
[2023-03-26 05:43] LABS: ABG PH Result 7.39 (7.35-7.45); Arterial Blood Gas Hematocrit 36.4 % (42-52); Base Excess ABG 10.1 mmol/L (-2.0-2.0); Blood Gas Allen Test Pos; Blood Gas Sample Type Arterial; Carboxyhemoglobin 1.6 %THgb (0.4-20.1); HCO3 ABG 37.2 mmol/L (22-26); Methemoglobin 0.3 % (0.4-1.5); PO2 ABG 35.7 mmHg (80.0-100.0); Total Hemoglobin 11.9 g/dL (14-18)
[2023-03-26 05:46] LABS: Basophils % 0.3 %; Eosinophils # 0.1 10^3/uL (0.0-0.8); Eosinophils % 0.7 %; Hematocrit 42.1 % (42.0-52.0); Hemoglobin 11.9 g/dL (11.7-16.6); Lymphocytes # 1.7 10^3/uL (0.8-4.8); Lymphocytes % 19.3 %; Mean Corpuscular HGB Conc 28.3 g/dL (30.0-36.0); Mean Corpuscular Hemoglobin 23.4 pg (28.0-34.0); Mean Corpuscular Volume 82.7 fl (80-94); Monocytes # 0.8 10^3/uL (0.2-0.9); Monocytes % 9.1 %; Neutrophils # 6.29 10^3/uL (1.8-7.7); Neutrophils % 69.7 %; Nucleated Red Blood Cells % 0 %; Platelet Count 284 10^3/cmm (130-400); Red Blood Count 5.09 10^6/uL (4.1-5.3); Red Cell Distribution Width 16.7 % (12.1-15.1)
[2023-03-26 05:49] LABS: Blood Gas Sample Site Radial, right
[2023-03-26 05:50] LABS: ABG PCO2 61.4 mmHg (35-45)
[2023-03-26 06:02] LABS: Lactic Sepsis W/Reflex 1.2 mmol/L (0.5-2.2)
[2023-03-26 06:11] LABS: Alanine Aminotransferase 9 U/L (0-41); Albumin Level 2.7 g/dL (3.5-5.2); Alkaline Phosphatase 98 U/L (40-130); Anion Gap 12.7 (5-19); Aspartate Amino Transferase 12 U/L (0-40); Blood Urea Nitrogen 22 mg/dL (8-23); Calcium 8.4 mg/dL (8.5-10.5); Carbon Dioxide 32 mmol/L (22-29); Chloride 93 mmol/L (98-107); Globulin 4.7 g/dL (1.3-4.6); Glomerular Filtration Rate 43.6 mL/min (90-130); Glucose 132 mg/dL (65-115); NT Pro B Type Natriuretic Pept 1340 pg/mL (0-125); Osmolality Calculated 281 mOsm/kg (285-295); Potassium 4.7 mmol/L (3.5-5.1); Sodium 133 mmol/L (136-145); Total Bilirubin 0.3 mg/dL (0.15-1.2); Total Protein 7.4 g/dL (6.6-8.7)
[2023-03-26] MEDS: vancomycin 1,250 MG/250 ML PIGGYBACK 250 MG IV (06:25)
[2023-03-26 06:53] LABS: Add Urine Microscopic? YES; Bacteria Urine 1+ /hpf; Bilirubin Urine Neg (Negative); Blood Urine 3+ (Negative); Glucose Urine UA Norm (Normal); Ketones Urine Negative (Negative); Leukocyte Esterase Urine Negative (Negative); Nitrate Urine Negative (Negative); Protein Urine Neg (Negative); RBC Urine 0-4 /hpf (0-2); Urine Appearance Clear (CLEAR); Urine Color Yellow (Yellow); Urobilinogen Urine Norm (Negative); pH Urine 5 (5-7)
[2023-03-26 06:54] LABS: Add Urine Culture? No; Coarse Granular Casts Urine 0-4 /lpf
--- NOTE | 2023-03-26 08:09 | USR_ITS ---
PROCEDURE INFORMATION: Exam: US Duplex Lower Extremity Veins, Bilateral Exam date and time: 03/26/2023 3:55 PM Age: 67 years old Clinical indication: Pain; Arm, upper; Right; Additional info: Dvt TECHNIQUE: Imaging protocol: Real-time duplex ultrasound of the bilateral extremities with 2-D moise scale, color Doppler flow and spectral waveform analysis including responses to compression and other maneuvers (when performed) with image documentation. Complete exam focused on the lower extremity veins. COMPARISON: US renal BI* [id number] 05/10/2021 9:11 AM FINDINGS: Right deep veins: Unremarkable. The common femoral, femoral, proximal profunda femoral, popliteal, posterior tibial and peroneal veins are patent without thrombus. Normal Doppler waveforms. Normal compressibility and/or augmentation response. Right superficial veins: Saphenofemoral junction is patent without thrombus. Left deep veins: Unremarkable. The common femoral, femoral, proximal profunda femoral, popliteal, posterior tibial and peroneal veins are patent without thrombus. Normal Doppler waveforms. Normal compressibility and/or augmentation response. Left superficial veins: Saphenofemoral junction is patent without thrombus. Soft tissues: Unremarkable. US/[place] [id number] IMPRESSION: No sonographic evidence of deep vein thrombosis.
--- NOTE | 2023-03-26 08:17 | PM.HP ---
Providers/Chief Complaint Admitting Physician: Luzma Blevins MD Primary Care Provider: Alfredito Muro DO Chief Complaint: LOW O2 SAT History of Present Illness Marlo Gleason is a 67 year old male with a past medical history of COPD, not a current smoker, anemia, anxiety, CAD, CKD, GERD, hyperlipidemia, insulin-dependent type 2 diabetes mellitus, who presents to [facility] due to shortness of breath, and hypoxia. Currently patient was examined in the intensive care unit, he is on BiPAP, he is alert and awake can follow commands, he tells me that he woke up this morning feeling short of breath, he tells me that at baseline he ambulates a few feet typically between his bed in his chair he tells me that recently has been feeling more short of breath with something minimal exertion. He tells me that he is not been feeling well, this morning this feeling suddenly worsen, he had a severe cough, fatigue, malaise, denies any fevers no hemoptysis, no chills. During his last hospitalization he was admitted to [facility] for COPD exacerbation, pneumonia. Review of Systems Const: Reports: fatigue and malaise; Denies: fever(s) or chills Eyes: Denies: change in vision Card: Reports: dyspnea on exertion; Denies: chest pain, palpitations, edema or lightheadedness Resp: Reports: dyspnea and non-productive cough GI: Denies: abdominal pain, nausea or vomiting : Denies: flank pain or difficulty urinating Musc: Denies: neck pain or back pain Skin/Breast: Denies: rash Neuro: Denies: headache(s), numbness in extremities or weakness in extremities Psych: Denies: anxiety Medications/Allergies Home Medications Medication Instructions Recorded Confirmed Last Taken Type albuterol sulfate 2.5 mg/3 mL 2.5 mg inhalation Q4H PRN 01/21/21 03/26/23 Unknown History (0.083 %) solution for nebulization shortness of breath aspirin 81 mg tablet,delayed 81 mg PO DAILY 01/21/21 03/26/23 Unknown History release (Adult Low Dose Aspirin) atorvastatin 40 mg tablet 40 mg PO BEDTIME 01/21/21 03/26/23 Unknown History buspirone 10 mg tablet 10 mg PO TID 01/21/21 03/26/23 Unknown History cetirizine 5 mg tablet 5 mg PO DAILY 01/21/21 03/26/23 Unknown History citalopram 10 mg tablet 20 mg PO DAILY 01/21/21 03/26/23 Unknown History ferrous sulfate 325 mg (65 mg 325 mg PO EVERY OTHER DAY 01/21/21 03/26/23 Unknown History iron) tablet hydrocodone 5 mg-acetaminophen 325 1 tab PO Q8H PRN Moderate Pain 01/21/21 03/26/23 Unknown History mg tablet (Scale Score 5-6) metoprolol tartrate 25 mg tablet 25 mg PO BID 01/21/21 03/26/23 Unknown History tamsulosin 0.4 mg capsule 0.4 mg PO BEDTIME 01/21/21 03/26/23 Unknown History acetaminophen 650 mg 650 mg PO Q6H PRN pain 05/08/21 03/26/23 Unknown History tablet,extended release (Mapap Arthritis Pain) bisacodyl 10 mg rectal suppository 10 mg SC DAILY PRN Constipation 05/08/21 03/26/23 Unknown History polyethylene glycol 3350 17 gram 17 g PO DAILY PRN Constipation 05/08/21 03/26/23 Unknown History oral powder packet (Miralax) sodium phosphates 19 gram-7 118 ml SC PRN PRN Constipation 05/08/21 03/26/23 Unknown History gram/118 mL enema (Enema Disposable) insulin aspart U-100 100 unit/mL 15 unit SUBCUT AC 04/04/22 03/26/23 Unknown History subcutaneous solution (Novolog U-100 Insulin aspart) montelukast 10 mg tablet 10 mg PO DAILY 04/04/22 03/26/23 Unknown History benzonatate 100 mg capsule 100 mg PO TID PRN Cough #90 caps 04/09/22 03/26/23 Unknown Rx guaifenesin 600 mg tablet, 600 mg PO Q12H 02/19/23 03/26/23 Unknown History extended release 12 hr ipratropium bromide 0.02 % 2.5 ml inhalation QID 02/19/23 03/26/23 Unknown History solution for inhalation nicotine 7 mg/24 hr daily 1 patch transdermal Q24H 02/19/23 03/26/23 Unknown History transdermal patch insulin aspart U-100 100 unit/mL See Rx Instructions .Route 02/24/23 03/26/23 Unknown Rx (3 mL) subcutaneous pen (Novolog .COMPLEX #15 mL FlexPen U-100 Insulin aspart) insulin glargine 100 unit/mL (3 15 unit (0.15 mL) SUBCUT Q12H #15 02/24/23 03/26/23 Unknown Rx mL) subcutaneous pen (Basaglar mL KwikPen U-100 Insulin) budesonide 0.25 mg/2 mL suspension 0.25 mg inhalation BID 03/26/23 03/26/23 Unknown History for nebulization lorazepam 0.5 mg tablet 0.5 mg PO DAILY PRN Anxiety 03/26/23 03/26/23 Unknown History magnesium L-lactate 84 mg 84 mg PO DAILY 03/26/23 03/26/23 Unknown History tablet,extended release mirtazapine 15 mg tablet 15 mg PO DAILY 03/26/23 03/26/23 Unknown History pantoprazole 40 mg tablet,delayed 40 mg PO BID 03/26/23 03/26/23 Unknown History release sucralfate 1 gram tablet 1 g PO BID 03/26/23 03/26/23 Unknown History venlafaxine 150 mg 150 mg PO DAILY 03/26/23 03/26/23 Unknown History capsule,extended release 24 hr Allergies Allergy/AdvReac Type Severity Reaction Status Date / Time No Known Allergies Allergy Verified 03/26/23 05:01 PFSH Acute PFSH: Medical History Anxiety disorder CAD (coronary artery disease) CKD (chronic kidney disease) COPD (chronic obstructive pulmonary disease) COVID-19 vaccine dose not administered Diabetes mellitus GERD (gastroesophageal reflux disease) Gout Hypertension Mediastinal adenopathy On home oxygen therapy Usually on 2 L by nasal cannula Pneumonia Positive DENY (antinuclear antibody) Prostatic hypertrophy PVD (peripheral vascular disease) Skin cancer Specific type unknown Tobacco use Surgical History History of cholecystectomy History of coronary artery stent placement X2 History of skin surgery Left neck for skin cancer Presence of coronary angioplasty implant and graft Family History Mother Cancer Father CAD (coronary artery disease) Social History Smoking and tobacco status: current some day smoker cigarettes Years cigarettes smoked: 60 Quit status (tobacco): not considering quitting Second hand smoke exposure: Yes Alcohol intake: former Substance/Drug Use: never Caregiver/support person: Yes Lives independently: No Housing: [place] Marital status: / service: No Current occupational status: disabled Pets and animals: Yes Do you think of yourself as: Straight/Heterosexual Current gender identity: Male Vitals/I&O/Wt Last Vital Signs Temp 98.7 F 03/26/23 04:55 Pulse 95 03/26/23 06:38 Resp 31 H 03/26/23 06:26 BP 118/55 03/26/23 06:26 Pulse Ox 95 03/26/23 06:38 O2 Del Method BiPAP 03/26/23 07:45 O2 Flow Rate 5 03/26/23 06:26 FiO2 40 03/26/23 08:00 03/25/23 03/26/23 03/26/23 22:59 06:59 14:59 Intake Total 50 / 50 250 / 250 Balance 50 / 50 250 / 250 Weight last 48 hrs Weight 86.183 kg Physical Exam Const: COMMON NORMALS: no acute distress and patient oriented x3 GENERAL APPEARANCE: cooperative and well developed HENMT: COMMON NORMALS: normocephalic HEAD & SCALP: normocephalic FACE & SINUS: normal facial exam Eye: COMMON NORMALS: Equal, round and reactive pupils present, EOMs intact bilaterally, conjunctivae normal and no scleral icterus CONJUNCTIVA: Yes conjunctivae normal PUPIL: Yes Equal, round and reactive pupils present Neck/C-Spine: COMMON NORMALS: full ROM, no lymphadenopathy, no JVD, Thyroid normal and No carotid bruits THYROID: Thyroid normal Lymph: LYMPHATIC: no lymphadenopathy noted Chest: COMMONS NORMALS: normal inspection of the chest Resp: COMMON NORMALS: normal respiratory effort, No retractions and No use of accessory muscles OTHER: Wheezing in all lung castillo Cardio: COMMON NORMALS: regular rate, regular rhythm, S1 normal heart sound present, S2 normal heart sound present, No murmurs present (Cardio) and Peripheral pulses 2+ throughout RATE: regular rate RHYTHM: regular rhythm HEART SOUNDS: S1 normal heart sound present and S2 normal heart sound present PERIPHERAL PULSES: Peripheral pulses 2+ throughout GI: COMMON NORMALS: Normal to inspection, nondistended, normoactive bowel sounds present, Soft to palpation and non-tender PALPATION: Yes Soft to palpation and Yes No hepatosplenomegaly present : BLADDER/KIDNEY EXAM: Yes no CVA tenderness Back/Pelvis: COMMON NORMALS: no CVA tenderness Extremity: COMMON NORMALS: normal to inspection, full ROM, capillary refill normal, no calf tenderness and no pedal edema Neuro: COMMON NORMALS: patient oriented x3, CN's II-XII intact bilaterally, moves all extremities, no focal motor deficits and no sensory deficits noted Psych: COMMON NORMALS: mental status grossly normal, cooperative and speech normal APPEARANCE: Yes well kempt SPEECH: Yes normal speech THOUGHT PROCESS: Normal thought process present Skin: COMMON NORMALS: turgor normal and no jaundice GENERAL SKIN EXAM: turgor normal Data 03/26/23 05:30 03/26/23 05:30 Micro: Microbiology 03/26/23 05:34 Blood Culture - Preliminary Blood SPECIMEN COLLECTED 03/26/23 05:30 Blood Culture - Preliminary Blood SPECIMEN COLLECTED A&P Assessment and plan (1) Type 2 diabetes mellitus: (2) CKD (chronic kidney disease): (3) Interstitial pulmonary fibrosis: (4) Acute and chronic respiratory failure with hypoxia: (5) Acute exacerbation of chronic obstructive airways disease: (6) Pneumonia: Qualifiers: Laterality: bilateral Lung location: lower lobe of lung Pneumonia type: due to unspecified organism Qualified Code(s): J18.9 - Pneumonia, unspecified organism (7) Goals of care, counseling/discussion: Plan Acute hypoxic respiratory failure -Secondary to COPD exacerbation and pneumonia -With history of centrilobular emphysema -History of COVID-19 infection April 09 history of MRSA pneumonia Plan -Admit to ICU -Monitor respiratory status closely -BiPAP therapy -Blood cultures, urine bacterial antigens, MRSA nares PCR -Continue vancomycin -Continue Zosyn -Decadron 6 mg IV push every 24 hours -Continue DuoNeb and -Continue budesonide -Viral respiratory panel -Sputum cultures -D-dimer ordered, troponin series, telemetry monitoring Pneumonia -Prior CT of the chest showed -Chest x-ray -We will consider further imaging -Will place on aspiration precautions -Speech therapy eval -We will consider barium swallow based on clinical progress -Consider pulmonary evaluation for possible bronchoscopy Type 2 diabetes mellitus -Lantus 5 units twice daily -Moderate dose sliding scale Chronic kidney disease -Monitor urine output Iron deficiency anemia -Monitor hemoglobin CAD -No chest pain complaints Goals of care discussion, patient wants to be a full code, agreeable to ICU admission Lovenox for DVT prophylaxis Protonix for GI prophylaxis Attestations Medical Necessity Statement*: Patient requires hospitalization, inpatient, greater than 2 midnights, ICU admission for acute on chronic hypoxic respiratory failure secondary to COPD, pneumonia, Diagnoses Type 2 diabetes mellitus E11.9 CKD (chronic kidney disease) N18.9 Interstitial pulmonary fibrosis J84.10 Acute and chronic respiratory failure with hypoxia J96.21 Acute exacerbation of chronic obstructive airways disease J44.1 Pneumonia J18.9 Laterality: bilateral Lung location: lower lobe of lung Pneumonia type: due to unspecified organism Goals of care, counseling/discussion Z71.89
[2023-03-26] MEDS: enoxaparin 40 mg/0.4 mL Syringe SUBCUT (08:18)
[2023-03-26] MEDS: dexamethasone 10 mg/mL INJ 6 MG IVP (08:18)
[2023-03-26] MEDS: pantoprazole 40 mg SDV IVP ×2 (08:18→20:38)
[2023-03-26 08:27] LABS: Troponin(5th) Baseline 67 ng/L (0-15)
[2023-03-26 08:31] LABS: D Dimer 0.72 ug/mIFEU (0-0.59)
[2023-03-26 08:39] LABS: Glucose Point of Care 232 mg/dL (70-110)
[2023-03-26] MEDS: venlafaxine ER (24HR) 150 mg Capsule PO (08:41)
[2023-03-26] MEDS: citalopram 20 mg Tablet PO (08:41)
[2023-03-26] MEDS: metoprolol tartrate 25 mg Tablet PO ×2 (08:41→18:07)
[2023-03-26] MEDS: magnesium lactate 84 mg Tablet PO (08:41)
[2023-03-26] MEDS: montelukast sodium 10 mg Tablet PO (08:42)
[2023-03-26] MEDS: ferrous sulfate EC 325 mg Tablet PO (08:42)
[2023-03-26] MEDS: mirtazapine 15 mg Tablet PO (08:42)
[2023-03-26] MEDS: BuSPIRONE 10 mg Tablet PO ×3 (08:42→20:37)
[2023-03-26] MEDS: aspirin 81 mg EC Tablet PO (08:42)
[2023-03-26 08:43] LABS: Estmated Average Glucose 209; Hemoglobin A1C 8.9 % (4.0-6.0)
[2023-03-26] MEDS: sucralfate 1 gm Tablet PO ×2 (08:44→18:06)
[2023-03-26 08:49] LABS: Procalcitonin 0.34 ng/mL (0-0.5)
[2023-03-26 09:12] LABS: C Reactive Protein 155.4 mg/L (0.0-4.9); Thyroid Stimulating Hormone 1.02 uIU/mL (0.27-4.20)
[2023-03-26] MEDS: budesonide 0.5 mg/2 mL Neb INHALATION ×2 (09:17→20:42)
[2023-03-26 09:28] LABS: Erythrocyte Sedimentation Rate 127 mm/hr (0-10)
--- NOTE | 2023-03-26 09:33 | ECG_ITS ---
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 Measurements Intervals [place] Rate: 82 P: 68 MN: 231 QRS: 95 QRSD: 96 T: 31 QT: 368 QTc: 430 Interpretive Statements SINUS RHYTHM WITH FIRST DEGREE AV BLOCK BORDERLINE RIGHT AXIS DEVIATION [QRS AXIS > 90] Compared to ECG 03/26/2023 05:03:09 Incomplete right bundle-branch block no longer present Electronically Signed On 03-26-2023 11:16:09 CDT by Tom Benavides M.D. [id number]
[2023-03-26] MEDS: insulin glargine 100 units/1 mL 5 UNIT SUBCUT ×2 (09:41→20:41)
[2023-03-26 10:48] LABS: Troponin 5 2HR 60.95 ng/L (0-15)
[2023-03-26 10:53] LABS: Troponin 5 2HR Delta -6.05 ABS# (0-10)
[2023-03-26 11:47] LABS: Adenovirus Not Detected (NOT DETECT); Chlamydia Pneumoniae Not Detected (NOT DETECT); Coronavirus 229E,HKU1,NL63,OC4 Not Detected (NOT DETECT); Human Metapneumovirus Not Detected (NOT DETECT); Human Rhinovirus/Enterovirus Not Detected (NOT DETECT); Influenza A Not Detected (NOT DETECT); Influenza A H1 Not Detected (NOT DETECT); Influenza A H1-2009 Not Detected (NOT DETECT); Influenza A H3 Not Detected (NOT DETECT); Influenza B Not Detected (NOT DETECT); Mycoplasma Pneumoniae Not Detected (NOT DETECT); Parainfluenza Virus Type 1 Not Detected (NOT DETECT); Parainfluenza Virus Type 2 Detected (NOT DETECT); Parainfluenza Virus Type 3 Not Detected (NOT DETECT); Parainfluenza Virus Type 4 Not Detected (NOT DETECT); Respiratory Syncytial Virus A Not Detected (NOT DETECT); Respiratory Syncytial Virus B Not Detected (NOT DETECT); SARS-COV-2 Not Detected (NOT DETECT)
[2023-03-26 11:52] LABS: Glucose Point of Care 274 mg/dL (70-110)
[2023-03-26] MEDS: insulin lispro 100 unit/1 mL SUBCUT ×3 (12:17→20:38)
[2023-03-26] MEDS: piperacillin-tazobactam 3.375 GM in sodium chloride 0.9% (plus) 50 ML IV ×2 (12:17→20:37)
--- NOTE | 2023-03-26 13:29 | ECG_ITS ---
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 Measurements Intervals [place] Rate: 78 P: 62 MO: 241 QRS: 95 QRSD: 101 T: 56 QT: 390 QTc: 445 Interpretive Statements SINUS RHYTHM WITH FIRST DEGREE AV BLOCK BORDERLINE RIGHT AXIS DEVIATION [QRS AXIS > 90] Compared to ECG 03/26/2023 09:30:57 No significant changes Electronically Signed On 03-27-2023 9:44:18 CDT by Tom Benavides M.D. [email or web address]
[2023-03-26 14:40] LABS: Troponin 5 6HR 52.76 ng/L (0-15); Troponin 5 6HR Delta -14.24 ng/L (0-12)
[2023-03-26 16:50] LABS: Glucose Point of Care 383 mg/dL (70-110)
[2023-03-26] MEDS: vancomycin 1,500 MG/300 ML PIGGYBACK 200 MG IV (18:06)
[2023-03-26] MEDS: HYDROcodone-acetaminophen 5-325 mg Tablet 1 TAB PO (20:14)
[2023-03-26] MEDS: atorvastatin 40 mg Tablet PO (20:37)
[2023-03-26] MEDS: tamsulosin 0.4 mg Capsule PO (20:37)
[2023-03-26 21:15] LABS: Glucose Point of Care 414 mg/dL (70-110)
[2023-03-27] VITALS (38 sets, daily range): BP systolic 93–136; BP diastolic 48–82; PULSE 52–76; RESP 10–32; TEMP 36.4–36.6; O2SAT 91–100
[2023-03-27] MEDS: lidocaine 5% Patch 2 PATCH TOPICAL (00:11)
[2023-03-27] MEDS: acetaminophen 325 mg Tablet 650 MG PO ×3 (01:05→21:19)
[2023-03-27] MEDS: ipratropium-albuterol 3 mL Neb INHALATION ×6 (03:11→23:21)
[2023-03-27 03:16] LABS: Glucose Point of Care 232 mg/dL (70-110)
[2023-03-27 04:26] LABS: ABG PH Result 7.34 (7.35-7.45); Arterial Blood Gas Hematocrit 32.5 % (42-52); Base Excess ABG 5.6 mmol/L (-2.0-2.0); Blood Gas Sample Type Arterial; HCO3 ABG 32.9 mmol/L (22-26); PO2 ABG 62.4 mmHg (80.0-100.0)
[2023-03-27 04:27] LABS: Blood Gas Sample Site Brachial, right; Oxygen Device NC
[2023-03-27 04:30] LABS: ABG PCO2 61.5 mmHg (35-45)
[2023-03-27] MEDS: piperacillin-tazobactam 3.375 GM in sodium chloride 0.9% (plus) 50 ML IV ×3 (04:51→20:24)
[2023-03-27 04:52] LABS: Basophils % 0.1 %; Hematocrit 35.7 % (42.0-52.0); Hemoglobin 10.4 g/dL (11.7-16.6); Lymphocytes # 1.3 10^3/uL (0.8-4.8); Lymphocytes % 10.7 %; Mean Corpuscular HGB Conc 29.1 g/dL (30.0-36.0); Mean Corpuscular Hemoglobin 23.5 pg (28.0-34.0); Mean Corpuscular Volume 80.8 fl (80-94); Mean Platelet Volume 8.8 fL (7.4-10.4); Monocytes # 1.2 10^3/uL (0.2-0.9); Neutrophils # 9.71 10^3/uL (1.8-7.7); Neutrophils % 78.7 %; Nucleated Red Blood Cells % 0 %; Platelet Count 306 10^3/cmm (130-400); Red Blood Count 4.42 10^6/uL (4.1-5.3); Red Cell Distribution Width 16.3 % (12.1-15.1); White Blood Count 12.3 10^3/uL (4.0-10.0)
[2023-03-27 05:06] LABS: Alanine Aminotransferase 10 U/L (0-41); Albumin Level 2.6 g/dL (3.5-5.2); Alkaline Phosphatase 82 U/L (40-130); Aspartate Amino Transferase 12 U/L (0-40); Blood Urea Nitrogen 37 mg/dL (8-23); Carbon Dioxide 32 mmol/L (22-29); Chloride 91 mmol/L (98-107); Globulin 3.8 g/dL (1.3-4.6); Glomerular Filtration Rate 38.1 mL/min (90-130); Glucose 260 mg/dL (65-115); Osmolality Calculated 286 mOsm/kg (285-295); Phosphorus 2.2 mg/dL (2.5-4.5); Sodium 129 mmol/L (136-145); Total Bilirubin 0.2 mg/dL (0.15-1.2); Total Protein 6.4 g/dL (6.6-8.7)
[2023-03-27 05:08] LABS: C Reactive Protein 107.7 mg/L (0.0-4.9)
[2023-03-27 05:09] LABS: Anion Gap 10.5 (5-19); Potassium 4.5 mmol/L (3.5-5.1)
[2023-03-27 05:14] LABS: NT Pro B Type Natriuretic Pept 1297 pg/mL (0-125); Procalcitonin 0.36 ng/mL (0-0.5)
[2023-03-27 07:05] LABS: Glucose Point of Care 280 mg/dL (70-110)
[2023-03-27] MEDS: enoxaparin 40 mg/0.4 mL Syringe SUBCUT (08:16)
[2023-03-27] MEDS: pantoprazole 40 mg SDV IVP ×2 (08:17→20:33)
[2023-03-27] MEDS: dexamethasone 10 mg/mL INJ 6 MG IVP (08:18)
[2023-03-27] MEDS: citalopram 20 mg Tablet PO (08:20)
[2023-03-27] MEDS: BuSPIRONE 10 mg Tablet PO ×3 (08:20→20:31)
[2023-03-27] MEDS: metoprolol tartrate 25 mg Tablet PO ×2 (08:20→17:22)
[2023-03-27] MEDS: sucralfate 1 gm Tablet PO ×2 (08:20→17:21)
[2023-03-27] MEDS: mirtazapine 15 mg Tablet PO ×2 (08:21)
[2023-03-27] MEDS: montelukast sodium 10 mg Tablet PO (08:22)
[2023-03-27] MEDS: venlafaxine ER (24HR) 150 mg Capsule PO (08:22)
[2023-03-27] MEDS: aspirin 81 mg EC Tablet PO (08:22)
[2023-03-27] MEDS: magnesium lactate 84 mg Tablet PO (08:22)
[2023-03-27] MEDS: insulin lispro 100 unit/1 mL SUBCUT ×4 (08:23→20:45)
[2023-03-27] MEDS: insulin glargine 100 units/1 mL 10 UNIT SUBCUT ×2 (08:39→20:44)
[2023-03-27] MEDS: budesonide 0.5 mg/2 mL Neb INHALATION ×2 (08:45→20:17)
[2023-03-27 11:41] LABS: Glucose Point of Care 323 mg/dL (70-110)
[2023-03-27] MEDS: gabapentin 300 mg Capsule PO (11:51)
[2023-03-27] MEDS: HYDROcodone-acetaminophen 5-325 mg Tablet 1 TAB PO ×2 (11:51→21:49)
--- NOTE | 2023-03-27 14:00 | P.PN_ITS ---
Subjective Subjective: Patient was seen this morning, he does feel a lot better he tells me, does complain of intermittent shortness of breath, he tells me he quit smoking roughly 5 months ago, denies any fevers or chills overnight, Vitals/I&O/Wt Last Vital Signs Temp 97.9 F 03/27/23 04:00 Pulse 60 03/27/23 13:19 Resp 23 H 03/27/23 12:00 BP 96/63 03/27/23 12:00 Pulse Ox 98 03/27/23 13:19 O2 Del Method Nasal Cannula 03/27/23 11:35 O2 Flow Rate 5 03/27/23 11:35 FiO2 40 03/27/23 13:19 03/26/23 03/27/23 03/27/23 22:59 06:59 14:59 Intake Total 948 / 1648 530 / 2178 400 / 400 Output Total 2725 / 2725 500 / 3225 Balance -1777 / -1077 30 / -1047 400 / 400 Weight last 48 hrs Weight 86.183 kg Physical Exam Const: COMMON NORMALS: no acute distress and patient oriented x3 Resp: COMMON NORMALS: normal respiratory effort, No retractions and No use of accessory muscles AUSCULTATION: wheezes Cardio: COMMON NORMALS: regular rate, regular rhythm, S1 normal heart sound present and S2 normal heart sound present RATE: regular rate RHYTHM: regular rhythm HEART SOUNDS: S1 normal heart sound present and S2 normal heart sound present GI: COMMON NORMALS: Normal to inspection, nondistended, normoactive bowel so unds present and non-tender Extremity: COMMON NORMALS: no pedal edema Neuro: COMMON NORMALS: patient oriented x3 Psych: COMMON NORMALS: mental status grossly normal Urinary Catheter Management: Akhtar: Cath Placed During This Visit: yes Reason for Continuing Indwelling Catheter: Accurate Measurement of Urinary Output in Critically Ill Patients Urinary Catheter Date of Insertion: 03/26/23 Urinary Catheter Time of Insertion: 09:30 Data 03/27/23 04:32 03/27/23 04:32 Micro: Microbiology 03/26/23 05:34 Blood Culture - Preliminary Blood NEGATIVE TO DATE 03/26/23 05:30 Blood Culture - Preliminary Blood NEGATIVE TO DATE 03/26/23 09:35 Bacterial Antigens - Final Urine,Voided A&P Assessment and plan (1) Type 2 diabetes mellitus: (2) CKD (chronic kidney disease): (3) Interstitial pulmonary fibrosis: (4) Acute and chronic respiratory failure with hypoxia: (5) Acute exacerbation of chronic obstructive airways disease: (6) Pneumonia: Qualifiers: Laterality: bilateral Lung location: lower lobe of lung Pneumonia type: due to unspecified organism Qualified Code(s): J18.9 - Pneumonia, unspecified organism (7) Goals of care, counseling/discussion: (8) NSTEMI (non-ST elevated myocardial infarction): (9) Hyponatremia: Plan Acute hypoxic respiratory failure -Secondary to COPD exacerbation and pneumonia -With history of centrilobular emphysema -History of COVID-19 infection April 09 history of MRSA pneumonia Plan -Admit to ICU -Monitor respiratory status closely -BiPAP therapy -Blood cultures, urine bacterial antigens, MRSA nares PCR -Continue vancomycin -Continue Zosyn -Decadron 6 mg IV push every 24 hours -Continue DuoNeb and -Continue budesonide -Sputum cultures Patient's ESR is 127, his last PFT, showed severely diminished DLCO, with severe airflow obstruction -Patient CT of his chest in February 2023 -1. Extensive lower lobe airway changes with diffuse bronchiectasis, bronchiolitis and peribronchial consolidation/fibrosis overall not significantly changed in overall severity from previous examination. 2. ? Stable irregular subpleural densities right lung believed secondary to chronic subsegmental atelectasis and scarring. 3. ? COPD with diffuse upper lobe emphysematous changes, stable. 4. ? Mild mediastinal lymphadenopathy, unchanged favoring benign etiology. Follow-up as clinically indicated. -Possible restrictive lung disease? -I have ordered a rheumatology panel -We will have patient follow-up with pulmonary as outpatient Pneumonia -Prior antibiotics as above -We will consider further imaging -Will place on aspiration precautions -Speech therapy eval -We will consider barium swallow based on clinical progress -Consider pulmonary evaluation for possible bronchoscopy Type 2 diabetes mellitus -Lantus 5 units twice daily -Moderate dose sliding scale Chronic kidney disease -Monitor urine output Iron deficiency anemia -Monitor hemoglobin CAD -No chest pain complaints Hyponatremia today, likely secondary insensible water losses, monitor NSTEMI -Likely supply/demand ischemia from respiratory failure -Continue telemetry monitoring Goals of care discussion, patient wants to be a full code, agreeable to ICU admi ssion Lovenox for DVT prophylaxis Protonix for GI prophylaxis Attestations Medical Necessity Statement*: Patient requires hospitalization for acute respiratory failure secondary to COPD exacerbation, pneumonia,, NSTEMI, hyponatremia, CKD, and High MDM includes number and complexity of problems actively addressed during encounter, amount and/or complexity of data reviewed/ordered and described risk of complication, morbidity or mortality of management as documented Diagnoses Type 2 diabetes mellitus E11.9 CKD (chronic kidney disease) N18.9 Interstitial pulmonary fibrosis J84.10 Acute and chronic respiratory failure with hypoxia J96.21 Acute exacerbation of chronic obstructive airways disease J44.1 Pneumonia J18.9 Laterality: bilateral Lung location: lower lobe of lung Pneumonia type: due to unspecified organism Goals of care, counseling/discussion Z71.89 NSTEMI (non-ST elevated myocardial infarction) I21.4 Hyponatremia E87.1
--- NOTE | 2023-03-27 14:56 | PC.NURSE ---
up in chair with assist some dyspnea with activity noted after lunch back to bed and placed on bipap at this time placed scd hose on pt after talking to him about benifets wore approx 15 min then insisted they be removed .
[2023-03-27 17:19] LABS: Glucose Point of Care 283 mg/dL (70-110)
[2023-03-27] MEDS: vancomycin 1,500 MG/300 ML PIGGYBACK 250 MG IV (17:22)
[2023-03-27 20:15] LABS: Glucose Point of Care 294 mg/dL (70-110)
[2023-03-27] MEDS: atorvastatin 40 mg Tablet PO (20:31)
[2023-03-27] MEDS: tamsulosin 0.4 mg Capsule PO (20:31)
[2023-03-28] VITALS (49 sets, daily range): BP systolic 87–161; BP diastolic 43–92; PULSE 53–86; RESP 12–37; TEMP 36.4–36.5; O2SAT 85–100; BMI 29.9
[2023-03-28] MEDS: ipratropium-albuterol 3 mL Neb INHALATION ×6 (03:07→23:28)
[2023-03-28 03:20] LABS: ABG PH Result 7.36 (7.35-7.45); Arterial Blood Gas Hematocrit 34.5 % (42-52); Base Excess ABG 10.3 mmol/L (-2.0-2.0); Blood Gas Allen Test Pos; Blood Gas Sample Site Radial, right; Blood Gas Sample Type Arterial; HCO3 ABG 37.9 mmol/L (22-26); Oxygen Device BIPAP; PO2 ABG 86.9 mmHg (80.0-100.0)
[2023-03-28 03:22] LABS: ABG PCO2 66.6 mmHg (35-45)
[2023-03-28 04:11] LABS: Basophils % 0.1 %; Hematocrit 36.8 % (42.0-52.0); Hemoglobin 10.6 g/dL (11.7-16.6); Lymphocytes # 2.5 10^3/uL (0.8-4.8); Lymphocytes % 18.5 %; Mean Corpuscular HGB Conc 28.8 g/dL (30.0-36.0); Mean Corpuscular Hemoglobin 23.7 pg (28.0-34.0); Mean Corpuscular Volume 82.1 fl (80-94); Mean Platelet Volume 9.1 fL (7.4-10.4); Monocytes # 1.1 10^3/uL (0.2-0.9); Monocytes % 8.1 %; Neutrophils # 9.72 10^3/uL (1.8-7.7); Neutrophils % 72.6 %; Nucleated Red Blood Cells % 0 %; Platelet Count 329 10^3/cmm (130-400); Red Blood Count 4.48 10^6/uL (4.1-5.3); Red Cell Distribution Width 16.9 % (12.1-15.1); White Blood Count 13.4 10^3/uL (4.0-10.0)
[2023-03-28 04:21] LABS: Alanine Aminotransferase 10 U/L (0-41); Albumin Level 2.7 g/dL (3.5-5.2); Alkaline Phosphatase 76 U/L (40-130); Anion Gap 12.9 (5-19); Aspartate Amino Transferase 10 U/L (0-40); Blood Urea Nitrogen 37 mg/dL (8-23); Calcium 8.5 mg/dL (8.5-10.5); Carbon Dioxide 33 mmol/L (22-29); Chloride 96 mmol/L (98-107); Globulin 3.7 g/dL (1.3-4.6); Glomerular Filtration Rate 40.7 mL/min (90-130); Glucose 201 mg/dL (65-115); Magnesium 2.1 mg/dL (1.7-2.3); Osmolality Calculated 298 mOsm/kg (285-295); Phosphorus 2.4 mg/dL (2.5-4.5); Potassium 4.9 mmol/L (3.5-5.1); Sodium 137 mmol/L (136-145); Total Bilirubin 0.2 mg/dL (0.15-1.2); Total Protein 6.4 g/dL (6.6-8.7)
[2023-03-28 04:44] LABS: NT Pro B Type Natriuretic Pept 1619 pg/mL (0-125); Procalcitonin 0.29 ng/mL (0-0.5)
[2023-03-28] MEDS: piperacillin-tazobactam 3.375 GM in sodium chloride 0.9% (plus) 50 ML IV ×3 (05:02→20:33)
[2023-03-28 07:19] LABS: Glucose Point of Care 231 mg/dL (70-110)
[2023-03-28] MEDS: budesonide 0.5 mg/2 mL Neb INHALATION ×2 (07:48→20:37)
--- NOTE | 2023-03-28 08:17 | FL_ITS ---
WS: [id number] FL barium swallow modifd [id number] REASON FOR EXAM: Oral dysphagia FLUOROSCOPY TIME: 2min [id number] # OF SPOT FILMS: None FINDINGS: Examination was supervised by the speech therapy department. The patient was examined in the sitting upright position. The swallowing of varying consistencies of barium was monitored fluoroscopically and video recorded. A detailed analysis and report of the swallowing will be rendered by the speech therapy department. FL/FL barium swallow modifd [id number] IMPRESSION: Modified barium swallow as above.
[2023-03-28] MEDS: dexamethasone 10 mg/mL INJ 6 MG IVP (08:36)
[2023-03-28] MEDS: enoxaparin 40 mg/0.4 mL Syringe SUBCUT (08:36)
[2023-03-28] MEDS: pantoprazole 40 mg SDV IVP ×2 (08:36→20:23)
[2023-03-28] MEDS: aspirin 81 mg EC Tablet PO (08:37)
[2023-03-28] MEDS: montelukast sodium 10 mg Tablet PO (08:37)
[2023-03-28] MEDS: metoprolol tartrate 25 mg Tablet PO ×2 (08:37→17:43)
[2023-03-28] MEDS: magnesium lactate 84 mg Tablet PO (08:37)
[2023-03-28] MEDS: ferrous sulfate EC 325 mg Tablet PO (08:37)
[2023-03-28] MEDS: sucralfate 1 gm Tablet PO ×2 (08:37→17:43)
[2023-03-28] MEDS: citalopram 20 mg Tablet PO (08:37)
[2023-03-28] MEDS: venlafaxine ER (24HR) 150 mg Capsule PO (08:37)
[2023-03-28] MEDS: BuSPIRONE 10 mg Tablet PO ×3 (08:38→20:28)
[2023-03-28] MEDS: mirtazapine 15 mg Tablet PO (08:38)
[2023-03-28] MEDS: insulin glargine 100 units/1 mL 10 UNIT SUBCUT ×2 (08:39→20:23)
[2023-03-28] MEDS: insulin lispro 100 unit/1 mL SUBCUT ×4 (08:40→21:33)
--- NOTE | 2023-03-28 09:43 | CT_ITS ---
WS: [id number] CT chest wo con [id number] HISTORY: sob TECHNIQUE: Axial imaging performed through the thorax. Coronal and sagittal reformats are submitted. All CT scans at [facility] use at least one of these dose optimization techniques: automated exposure control; mA and/or kV adjustment per patient size (includes targeted exams where dose is mat ched to clinical indication); or iterative reconstruction. CONTRAST: None DLP: 543.97 mGy.cm COMPARISON: 02/19/2023 Lungs and central airway: Emphysematous pulmonary fibrotic changes as compared to 02/19/2023. Not a sig nificant progression. There are areas of groundglass attenuation with consolidations at the lung base s. Bilateral mild honeycombing or bronchiectasis. No progression of disease. Additional areas of atel ectasis at the lung bases. Mild bullous emphysema in the upper lung castillo. Pleura: Pleural thickening with no effusions. Greatest at the lung bases. Heart and pericardium: Mild cardiomegaly. Mediastinum and marissa: Mediastinal and hilar lymph nodes. These lymph nodes have been present since 05/20/2022 and are probably reactive. No increase in size. Vessels: Mild atherosclerosis aorta. Normal size pulmonary artery. Moderate coronary artery calcifica tion. Chest wall and lower neck: No soft tissue masses. Upper abdomen: Prior cholecystectomy. Osseous structures: Mild thoracic spondylosis. CT/CT chest wo con [id number] IMPRESSION: 1. Stable changes of bullous emphysema and pulmonary fibrosis since 02/19/2023. Additional areas of bronchiectasis and honeycombing in the lower lung castillo. N o obvious progression since the most recent exam. 2. Mild cardiomegaly. 3. Prior cholecystectomy. 4. No pleural effusion. 5. Stable mildly enlarged mediastinal and hilar lymph nodes. May be reactive.
[2023-03-28 11:10] LABS: Glucose Point of Care 239 mg/dL (70-110)
[2023-03-28] MEDS: gabapentin 300 mg Capsule PO (11:59)
[2023-03-28 12:14] LABS: COMPLEMENT COMPONENT C3C 150 mg/dL (82-185); COMPLEMENT COMPONENT C4C 44 mg/dL (15-53)
[2023-03-28 12:56] LABS: COMPLEMENT, TOTAL (CH50) >60 U/mL (31-60)
[2023-03-28 14:48] LABS: CENTROMERE B ANTIBODY <1.0 NEG AI (<1.0 NEG); JO-1 ANTIBODY <1.0 NEG AI (<1.0 NEG); RNP ANTIBODY <1.0 NEG AI (<1.0 NEG); SCL-70 ANTIBODY <1.0 NEG AI (<1.0 NEG); SJOGREN'S ANTIBODY (SS-A) <1.0 NEG AI (<1.0 NEG); SM ANTIBODY <1.0 NEG AI (<1.0 NEG); SS-B <1.0 NEG AI (<1.0 NEG)
--- NOTE | 2023-03-28 16:08 | P.PN_ITS ---
Subjective Subjective: Patient was seen and morning, he tells me that overall he feels better, no chest pain, no palpitations, no nausea, no vomiting, no chest pain, no palpitations Vitals/I&O/Wt Last Vital Signs Temp 97.7 F 03/28/23 04:00 Pulse 62 03/28/23 15:43 Resp 21 H 03/28/23 15:30 BP 118/66 03/28/23 14:30 Pulse Ox 98 03/28/23 15:30 O2 Del Method Nasal Cannula 03/28/23 15:30 O2 Flow Rate 3 03/28/23 15:30 FiO2 40 03/28/23 14:08 03/28/23 03/28/23 03/28/23 06:59 14:59 22:59 Intake Total 830 / 2580 400 / 400 Output Total 2225 / 4725 2300 / 2300 Balance -1395 / -2145 -1900 / -1900 Weight last 48 hrs Weight 89.267 kg Physical Exam Const: COMMON NORMALS: no acute distress and patient oriented x3 Resp: COMMON NORMALS: normal respiratory effort, No retractions, No use of accessory muscles and clear to auscultation bilaterally AUSCULTATION: clear to auscultation bilaterally Cardio: COMMON NORMALS: regular rate, regular rhythm, S1 normal heart sound present and S2 normal heart sound present RATE: regular rate RHYTHM: regular rhythm HEART SOUNDS: S1 normal heart sound present and S2 normal heart sound present GI: COMMON NORMALS: Normal to inspection, nondistended, normoactive bowel sounds present and non-tender Extremity: COMMON NORMALS: no pedal edema Neuro: COMMON NORMALS: patient oriented x3 Psych: COMMON NORMALS: mental status grossly normal Urinary Catheter Management: Akhtar: Cath Placed During This Visit: yes Reason for Continuing Indwelling Catheter: Accurate Measurement of Urinary Output in Critically Ill Patients Urinary Catheter Date of Insertion: 03/26/23 Urinary Catheter Time of Insertion: 09:30 Data 03/28/23 03:35 03/28/23 03:35 Micro: Microbiology 03/26/23 09:45 MRSA Culture - Final Nose A&P Assessment and plan (1) Type 2 diabetes mellitus: (2) CKD (chronic kidney disease): (3) Interstitial pulmonary fibrosis: (4) Acute and chronic respiratory failure with hypoxia: (5) Acute exacerbation of chronic obstructive airways disease: (6) Pneumonia: Qualifiers: Laterality: bilateral Lung location: lower lobe of lung Pneumonia ty pe: due to unspecified organism Qualified Code(s): J18.9 - Pneumonia, unspecified organism (7) Goals of care, counseling/discussion: (8) NSTEMI (non-ST elevated myocardial infarction): (9) Hyponatremia: (10) Aspiration pneumonia: Plan Acute hypoxic respiratory failure -Secondary to COPD exacerbation and pneumonia -With history of centrilobular emphysema -History of COVID-19 infection April 09 history of MRSA pneumonia Plan -We will move out of ICU -Monitor respiratory status closely -BiPAP therapy, would recommend [facility] at [facility] -Blood cultures, urine bacterial antigens, MRSA nares PCR -Continue vancomycin, MRSA nares positive -Continue Zosyn -Decadron 6 mg IV push every 24 hours -Continue DuoNeb and -Continue budesonide -Sputum cultures Prior CAT scans show evidence of aspiration pneumonia, aspiration pneumonitis -Speech therapy eval -Barium swallow -CT of the chest Patient's ESR is 127, his last PFT, showed severely diminished DLCO, with severe airflow obstruction -Patient CT of his chest in February 2023 -1. Extensive lower lobe airway changes with diffuse bronchiectasis, bronchiolitis and peribronchial consolidation/fibrosis overall not significantly changed in overall severity from previous examination. 2. ? Stable irregular subpleural densities right lung believed secondary to chronic subsegmental atelectasis and scarring. 3. ? COPD with diffuse upper lobe emphysematous changes, stable. 4. ? Mild mediastinal lymphadenopathy, unchanged favoring benign etiology. Follow-up as clinically indicated. -Possible restrictive lung disease? -I have ordered a rheumatology panel -We will have patient follow-up with pulmonary as outpatient Pneumonia -Prior antibiotics as above -Will place on aspiration precautions -Speech therapy eval -Consider pulmonary evaluation for possible bronchoscopy Type 2 diabetes mellitus -Lantus 10 units twice daily -Moderate dose sliding scale Chronic kidney disease -Monitor urine output Iron deficiency anemia -Monitor hemoglobin CAD -No chest pain complaints Hyponatremia today, resolved NSTEMI -Likely supply/demand ischemia from respiratory failure -Continue telemetry monitoring Goals of care discussion, patient wants to be a full code, agreeable to ICU admission Lovenox for DVT prophylaxis Protonix for GI prophylaxis Plan for today, barium swallow, speech therapy eval, CT of the chest continue on biotic therapy, up out of bed, physical therapy eval, blood sugar monitoring, will move to general medical floors, plan on discharging the next 24 to 48 hours Attestations Medical Necessity Statement*: Patient requires hospitalization for acute on chronic respiratory failure secondary to COPD, emphysema, pneumonia, Diagnoses Type 2 diabetes mellitus E11.9 CKD (chronic kidney disease) N18.9 Interstitial pulmonary fibrosis J84.10 Acute and chronic respiratory failure with hypoxia J96.21 Acute exacerbation of chronic obstructive airways disease J44.1 Pneumonia J18.9 Laterality: bilateral Lung location: lower lobe of lung Pneumonia type: due to unspecified organism Goals of care, counseling/discussion Z71.89 NSTEMI (non-ST elevated myocardial infarction) I21.4 Hyponatremia E87.1 Aspiration pneumonia J69.0
[2023-03-28 17:28] LABS: Glucose Point of Care 457 mg/dL (70-110)
[2023-03-28 17:28] LABS: Glucose Point of Care 445 mg/dL (70-110)
[2023-03-28] MEDS: vancomycin 1,500 MG/300 ML PIGGYBACK 200 MG IV (17:42)
--- NOTE | 2023-03-28 19:37 | PC.NURSE ---
Patient transferred to [facility] bed 260 via wheelchair. All belongings with patient upon transfer. Receiving nurse made aware of patient arrival. All vitals stable
[2023-03-28] MEDS: atorvastatin 40 mg Tablet PO (20:28)
[2023-03-28] MEDS: tamsulosin 0.4 mg Capsule PO (20:31)
[2023-03-28 21:31] LABS: Glucose Point of Care 349 mg/dL (70-110)
[2023-03-28] MEDS: HYDROcodone-acetaminophen 5-325 mg Tablet 1 TAB PO (23:29)
[2023-03-28] MEDS: acetaminophen 325 mg Tablet 650 MG PO (23:29)
[2023-03-29] VITALS (20 sets, daily range): BP systolic 117–156; BP diastolic 65–76; PULSE 58–90; RESP 16–20; TEMP 36–37.1; O2SAT 91–100
[2023-03-29] MEDS: ipratropium-albuterol 3 mL Neb INHALATION ×5 (03:48→20:18)
[2023-03-29 04:09] LABS: ABG PCO2 58.9 mmHg (35-45); ABG PH Result 7.41 (7.35-7.45); Arterial Blood Gas Hematocrit 34.6 % (42-52); Base Excess ABG 10.5 mmol/L (-2.0-2.0); Blood Gas Allen Test Pos; Blood Gas Sample Site Radial, left; Blood Gas Sample Type Arterial; HCO3 ABG 37.1 mmol/L (22-26); Oxygen Device NC
[2023-03-29] MEDS: piperacillin-tazobactam 3.375 GM in sodium chloride 0.9% (plus) 50 ML IV ×3 (05:23→20:16)
[2023-03-29 06:51] LABS: Glucose Point of Care 354 mg/dL (70-110)
[2023-03-29 07:00] LABS: Basophils % 0.3 %; Hematocrit 41.9 % (42.0-52.0); Hemoglobin 12.1 g/dL (11.7-16.6); Lymphocytes # 2.3 10^3/uL (0.8-4.8); Lymphocytes % 16.8 %; Mean Corpuscular HGB Conc 28.9 g/dL (30.0-36.0); Mean Corpuscular Hemoglobin 23.3 pg (28.0-34.0); Mean Corpuscular Volume 80.7 fl (80-94); Mean Platelet Volume 8.9 fL (7.4-10.4); Monocytes # 1.1 10^3/uL (0.2-0.9); Monocytes % 8.1 %; Neutrophils # 9.79 10^3/uL (1.8-7.7); Neutrophils % 72.1 %; Nucleated Red Blood Cells % 0 %; Platelet Count 416 10^3/cmm (130-400); Red Blood Count 5.19 10^6/uL (4.1-5.3); Red Cell Distribution Width 16.8 % (12.1-15.1); White Blood Count 13.6 10^3/uL (4.0-10.0)
[2023-03-29 07:20] LABS: Alanine Aminotransferase 12 U/L (0-41); Albumin Level 3.4 g/dL (3.5-5.2); Alkaline Phosphatase 107 U/L (40-130); Anion Gap 13.8 (5-19); Aspartate Amino Transferase 12 U/L (0-40); Blood Urea Nitrogen 32 mg/dL (8-23); Calcium 9.1 mg/dL (8.5-10.5); Carbon Dioxide 34 mmol/L (22-29); Chloride 91 mmol/L (98-107); Globulin 4.2 g/dL (1.3-4.6); Glomerular Filtration Rate 43.6 mL/min (90-130); Glucose 314 mg/dL (65-115); Magnesium 1.8 mg/dL (1.7-2.3); Osmolality Calculated 297 mOsm/kg (285-295); Phosphorus 1.3 mg/dL (2.5-4.5); Potassium 4.8 mmol/L (3.5-5.1); Sodium 134 mmol/L (136-145); Total Bilirubin 0.2 mg/dL (0.15-1.2); Total Protein 7.6 g/dL (6.6-8.7)
[2023-03-29 07:47] LABS: C Reactive Protein 23.6 mg/L (0.0-4.9)
[2023-03-29 07:53] LABS: NT Pro B Type Natriuretic Pept 1461 pg/mL (0-125); Procalcitonin 0.28 ng/mL (0-0.5)
[2023-03-29] MEDS: insulin lispro 100 unit/1 mL SUBCUT ×4 (07:53→21:04)
[2023-03-29] MEDS: budesonide 0.5 mg/2 mL Neb INHALATION ×2 (08:30→20:18)
[2023-03-29] MEDS: pantoprazole 40 mg SDV IVP ×2 (09:44→20:15)
[2023-03-29] MEDS: sucralfate 1 gm Tablet PO ×2 (09:45→17:58)
[2023-03-29] MEDS: metoprolol tartrate 25 mg Tablet PO ×2 (09:45→17:58)
[2023-03-29] MEDS: mirtazapine 15 mg Tablet PO (09:45)
[2023-03-29] MEDS: venlafaxine ER (24HR) 150 mg Capsule PO (09:45)
[2023-03-29] MEDS: citalopram 20 mg Tablet PO (09:45)
[2023-03-29] MEDS: aspirin 81 mg EC Tablet PO (09:45)
[2023-03-29] MEDS: enoxaparin 40 mg/0.4 mL Syringe SUBCUT (09:46)
[2023-03-29] MEDS: montelukast sodium 10 mg Tablet PO (09:46)
[2023-03-29] MEDS: BuSPIRONE 10 mg Tablet PO ×3 (09:46→20:15)
[2023-03-29] MEDS: magnesium lactate 84 mg Tablet PO (09:46)
[2023-03-29] MEDS: FUROsemide 10 mg/mL SDV 2mL 20 MG IVP (09:46)
[2023-03-29] MEDS: predniSONE 20 mg Tablet 40 MG PO (09:50)
[2023-03-29 10:40] LABS: ANA SCREEN, IFA NEGATIVE (NEGATIVE)
[2023-03-29 11:13] LABS: Glucose Point of Care 302 mg/dL (70-110)
[2023-03-29] MEDS: insulin glargine 100 units/1 mL 15 UNIT SUBCUT ×2 (11:15→20:43)
[2023-03-29] MEDS: gabapentin 300 mg Capsule PO (11:28)
[2023-03-29 16:29] LABS: Glucose Point of Care 298 mg/dL (70-110)
[2023-03-29 17:47] LABS: Vancomycin Trough 18.8 ug/mL (10-15)
--- NOTE | 2023-03-29 18:26 | P.PN_ITS ---
Subjective Subjective: Patient was seen this morning he tells me he is feels significantly better, but he is hesitant about going home today Vitals/I&O/Wt Last Vital Signs Temp 96.9 F L 03/29/23 16:00 Pulse 74 03/29/23 16:00 Resp 18 03/29/23 16:00 BP 126/76 03/29/23 16:00 Pulse Ox 91 03/29/23 16:00 O2 Del Method Nasal Cannula 03/29/23 16:00 O2 Flow Rate 3 03/29/23 11:18 FiO2 30 03/29/23 15:23 03/29/23 03/29/23 03/29/23 06:59 14:59 22:59 Intake Total 50 / 620 410 / 410 Output Total 2350 / 4650 3275 / 3275 Balance -2300 / -4030 -2865 / -2865 Weight last 48 hrs Weight 82.327 kg Weight 89.267 kg Physical Exam Const: COMMON NORMALS: no acute distress and patient oriented x3 Resp: COMMON NORMALS: normal respiratory effort, No retractions, No use of accessory muscles and clear to auscultation bilaterally AUSCULTATION: clear to auscultation bilaterally Cardio: COMMON NORMALS: regular rate, regular rhythm, S1 normal heart sound present and S2 normal heart sound present RATE: regular rate RHYTHM: regular rhythm HEART SOUNDS: S1 normal heart sound present and S2 normal heart sound present GI: COMMON NORMALS: Normal to inspection, nondistended, normoactive bowel sounds present and non-tender Extremity: NARRATIVE EXTREMITY EXAM: 1+ pitting bilateral extremity Neuro: COMMON NORMALS: patient oriented x3 Psych: COMMON NORMALS: mental status grossly normal Urinary Catheter Management: Akhtar: Cath Placed During This Visit: yes Reason for Continuing Indwelling Catheter: Accurate Measurement of Urinary Output in Critically Ill Patients Urinary Catheter Date of Insertion: 03/26/23 Urinary Catheter Time of Insertion: 09:30 Data 03/29/23 06:15 03/29/23 06:15 A&P Assessment and plan (1) Type 2 diabetes mellitus: (2) CKD (chronic kidney disease): (3) Interstitial pulmonary fibrosis: (4) Acute and chronic respiratory failure with hypoxia: (5) Acute exacerbation of chronic obstructive airways disease: (6) Pneumonia: Qualifiers: Laterality: bilateral Lung location: lower lobe of lung Pneumonia type: due to unspecified organism Qualified Code(s): J18.9 - Pneumonia, unspecified organism (7) Goals of care, counseling/discussion: (8) NSTEMI (non-ST elevated myocardial infarction): (9) Hyponatremia: (10) Aspiration pneumonia: Plan Acute hypoxic respiratory failure -Secondary to COPD exacerbation and pneumonia -With history of centrilobular emphysema -History of COVID-19 infection April 09 history of MRSA pneumonia Plan -Currently on general medical floors -Monitor respiratory status closely -BiPAP therapy, would recommend BiPAP therapy at group home [facility] -Blood cultures, urine bacterial antigens, MRSA nares PCR -Stop vancomycin -Continue Zosyn -Switch to prednisone 40 every 24 hours -Continue DuoNeb and -Continue budesonide -Sputum cultures Prior CAT scans show evidence of aspiration pneumonia, aspiration pneumonitis -Speech therapy eval -Barium swallow, no significant aspiration -CT of the chest 1.? Stable changes of bullous emphysema and pulmonary fibrosis since 02/19/2023. Additional areas of bronchiectasis and honeycombing in the lower lung castillo. No obvious progression since the most recent exam. 2.? Mild cardiomegaly. 3.? Prior cholecystectomy. 4.? No pleural effusion. 5.? Stable mildly enlarged mediastinal and hilar lymph nodes. May be reactive. Patient's ESR is 127, his last PFT, showed severely diminished DLCO, with severe airflow obstruction -Patient CT of his chest in February 2023 -1. Extensive lower lobe airway changes with diffuse bronchiectasis, bronchiolitis and peribronchial consolidation/fibrosis overall not significantly changed in overall severity from previous examination. 2. ? Stable irregular subpleural densities right lung believed secondary to chronic subsegmental atelectasis and scarring. 3. ? COPD with diffuse upper lobe emphysematous changes, stable. 4. ? Mild mediastinal lymphadenopathy, unchanged favoring benign etiology. Follow-up as clinically indicated. -Possible restrictive lung disease? -I have ordered a rheumatology panel -We will have patient follow-up with pulmonary as outpatient Pneumonia -Prior antibiotics as above -Will place on aspiration precautions -Speech therapy eval -Consider pulmonary evaluation for possible bronchoscopy Type 2 diabetes mellitus -Lantus 15 units twice daily -Moderate dose sliding scale Chronic kidney disease -Monitor urine output Iron deficiency anemia -Monitor hemoglobin CAD -No chest pain complaints Hyponatremia today, resolved NSTEMI -Likely supply/demand ischemia from respiratory failure -Continue telemetry monitoring Goals of care discussion, patient wants to be a full code, agreeable to ICU admission Lovenox for DVT prophylaxis Protonix for GI prophylaxis Will set up for BiPAP at group home facility Plan for today, up out of bed, stop vancomycin, switch to p.o. prednisone, 1 dose of IV Lasix today, plan on discharging in the next 24 hours Attestations Medical Necessity Statement*: Patient requires hospital patient for respiratory failure sec to pneumonia, COPD Diagnoses Type 2 diabetes mellitus E11.9 CKD (chronic kidney disease) N18.9 Interstitial pulmonary fibrosis J84.10 Acute and chronic respiratory failure with hypoxia J96.21 Acute exacerbation of chronic obstructive airways disease J44.1 Pneumonia J18.9 Laterality: bilateral Lung location: lower lobe of lung Pneumonia type: due to unspecified organism Goals of care, counseling/discussion Z71.89 NSTEMI (non-ST elevated myocardial infarction) I21.4 Hyponatremia E87.1 Aspiration pneumonia J69.0
[2023-03-29] MEDS: tamsulosin 0.4 mg Capsule PO (20:15)
[2023-03-29] MEDS: atorvastatin 40 mg Tablet PO (20:15)
[2023-03-29 21:17] LABS: Glucose Point of Care 327 mg/dL (70-110)
[2023-03-29] MEDS: HYDROcodone-acetaminophen 5-325 mg Tablet 1 TAB PO (22:54)
[2023-03-29] MEDS: acetaminophen 325 mg Tablet 650 MG PO (22:54)
[2023-03-30] VITALS (20 sets, daily range): BP systolic 111–150; BP diastolic 63–80; PULSE 64–93; RESP 16–26; TEMP 36.4–36.7; O2SAT 89–99
[2023-03-30] MEDS: ipratropium-albuterol 3 mL Neb INHALATION ×7 (00:12→23:53)
[2023-03-30] MEDS: piperacillin-tazobactam 3.375 GM in sodium chloride 0.9% (plus) 50 ML IV ×2 (04:28→12:46)
[2023-03-30 06:13] LABS: Basophils # 0.1 10^3/uL (0.0-0.1); Basophils % 0.5 %; Eosinophils % 0.2 %; Hematocrit 38.3 % (42.0-52.0); Hemoglobin 11.7 g/dL (11.7-16.6); Lymphocytes # 3.2 10^3/uL (0.8-4.8); Lymphocytes % 21.9 %; Mean Corpuscular HGB Conc 30.5 g/dL (30.0-36.0); Mean Corpuscular Hemoglobin 23.7 pg (28.0-34.0); Mean Corpuscular Volume 77.7 fl (80-94); Mean Platelet Volume 9.3 fL (7.4-10.4); Monocytes # 1.5 10^3/uL (0.2-0.9); Monocytes % 10.3 %; Neutrophils # 9.27 10^3/uL (1.8-7.7); Neutrophils % 63.1 %; Nucleated Red Blood Cells % 0 %; Platelet Count 468 10^3/cmm (130-400); Red Blood Count 4.93 10^6/uL (4.1-5.3); Red Cell Distribution Width 17.7 % (12.1-15.1); White Blood Count 14.7 10^3/uL (4.0-10.0)
[2023-03-30 06:42] LABS: Glucose Point of Care 261 mg/dL (70-110)
[2023-03-30 08:16] LABS: Alanine Aminotransferase 30 U/L (0-41); Alkaline Phosphatase 87 U/L (40-130); Anion Gap 11.6 (5-19); Aspartate Amino Transferase 25 U/L (0-40); Blood Urea Nitrogen 35 mg/dL (8-23); Calcium 9.2 mg/dL (8.5-10.5); Carbon Dioxide 35 mmol/L (22-29); Chloride 91 mmol/L (98-107); Globulin 4.1 g/dL (1.3-4.6); Glomerular Filtration Rate 43.6 mL/min (90-130); Glucose 223 mg/dL (65-115); Magnesium 1.6 mg/dL (1.7-2.3); Osmolality Calculated 291 mOsm/kg (285-295); Phosphorus 2.7 mg/dL (2.5-4.5); Potassium 4.6 mmol/L (3.5-5.1); Sodium 133 mmol/L (136-145); Total Bilirubin 0.2 mg/dL (0.15-1.2); Total Protein 7.1 g/dL (6.6-8.7)
[2023-03-30] MEDS: budesonide 0.5 mg/2 mL Neb INHALATION ×2 (08:22→20:02)
[2023-03-30] MEDS: insulin lispro 100 unit/1 mL SUBCUT ×4 (09:00→20:35)
[2023-03-30] MEDS: montelukast sodium 10 mg Tablet PO (09:01)
[2023-03-30] MEDS: BuSPIRONE 10 mg Tablet PO ×3 (09:01→20:14)
[2023-03-30] MEDS: metoprolol tartrate 25 mg Tablet PO ×2 (09:01→17:33)
[2023-03-30] MEDS: predniSONE 20 mg Tablet 40 MG PO (09:02)
[2023-03-30] MEDS: enoxaparin 40 mg/0.4 mL Syringe SUBCUT (09:02)
[2023-03-30] MEDS: ferrous sulfate EC 325 mg Tablet PO (09:02)
[2023-03-30] MEDS: aspirin 81 mg EC Tablet PO (09:02)
[2023-03-30] MEDS: mirtazapine 15 mg Tablet PO (09:02)
[2023-03-30] MEDS: citalopram 20 mg Tablet PO (09:02)
[2023-03-30] MEDS: venlafaxine ER (24HR) 150 mg Capsule PO (09:02)
[2023-03-30] MEDS: sucralfate 1 gm Tablet PO ×2 (09:02→17:33)
[2023-03-30] MEDS: pantoprazole 40 mg SDV IVP ×2 (09:03→20:44)
[2023-03-30] MEDS: insulin glargine 100 units/1 mL 15 UNIT SUBCUT (09:08)
[2023-03-30] MEDS: magnesium lactate 84 mg Tablet PO (09:08)
[2023-03-30 10:29] LABS: THYROID PEROXIDASE ANTIBODIES 1 IU/mL (<9)
[2023-03-30] MEDS: gabapentin 300 mg Capsule PO (11:02)
[2023-03-30 11:24] LABS: Glucose Point of Care 350 mg/dL (70-110)
[2023-03-30 16:55] LABS: Glucose Point of Care 434 mg/dL (70-110)
--- NOTE | 2023-03-30 18:46 | P.PN_ITS ---
Subjective Subjective: - Patient was seen this morning, he is hesitant about going back to half-way if he does not have his BiPAP arranged she tells me that it helps him during the night Vitals/I&O/Wt Last Vital Signs Temp 98.0 F 03/30/23 15:11 Pulse 80 03/30/23 16:00 Resp 18 03/30/23 16:00 BP 131/80 03/30/23 15:11 Pulse Ox 89 L 03/30/23 16:00 O2 Del Method Nasal Cannula 03/30/23 16:00 O2 Flow Rate 4 03/30/23 10:45 FiO2 3 03/30/23 16:00 03/30/23 03/30/23 03/30/23 06:59 14:59 22:59 Intake Total 50 / 1170 730 / 730 360 / 1090 Output Total 1350 / 5375 1000 / 1000 2000 / 3000 Balance -1300 / -4205 -270 / -270 -1640 / -1910 Weight last 48 hrs Weight 79.832 kg Weight 82.327 kg Physical Exam Const: COMMON NORMALS: no acute distress and patient oriented x3 Resp: COMMON NORMALS: normal respiratory effort, No retractions, No use of accessory muscles and clear to auscultation bilaterally AUSCULTATION: clear to auscultation bilaterally Cardio: COMMON NORMALS: regular rate, regular rhythm, S1 normal heart sound present and S2 normal heart sound present RATE: regular rate RHYTHM: regular rhythm HEART SOUNDS: S1 normal heart sound present and S2 normal heart sound present GI: COMMON NORMALS: Normal to inspection, nondistended, normoactive bowel sounds present and non-tender Extremity: COMMON NORMALS: no pedal edema Neuro: COMMON NORMALS: patient oriented x3 Psych: COMMON NORMALS: mental status grossly normal Urinary Catheter Management: Akhtar: Cath Placed During This Visit: yes Reason for Continuing Indwelling Catheter: Acute Urinary Retention or Obstruction Urinary Catheter Date of Insertion: 03/26/23 Urinary Catheter Time of Insertion: 09:30 Data 03/30/23 06:00 03/30/23 07:32 A&P Assessment and plan (1) Type 2 diabetes mellitus: (2) CKD (chronic kidney disease): (3) Interstitial pulmonary fibrosis: (4) Acute and chronic respiratory failure with hypoxia: (5) Acute exacerbation of chronic obstructive airways disease: (6) Pneumonia: Qualifiers: Laterality: bilateral Lung location: lower lobe of lung Pneumonia type: due to unspecified organism Qualified Code(s): J18.9 - Pneumonia, unspecified organism (7) Goals of care, counseling/discussion: (8) NSTEMI (non-ST elevated myocardial infarction): (9) Hyponatremia: (10) Aspiration pneumonia: Plan Acute hypoxic respiratory failure -Secondary to COPD exacerbation and pneumonia -With history of centrilobular emphysema -History of COVID-19 infection April 09 history of MRSA pneumonia Plan -Currently on general medical floors -Monitor respiratory status closely -BiPAP therapy, would recommend [facility] -Blood cultures, urine bacterial antigens, MRSA nares PCR -Stop vancomycin -Stop Zosyn -Switch to Augmentin -Switch to prednisone 40 every 24 hours -Continue DuoNeb and -Continue budesonide -Sputum cultures Prior CAT scans show evidence of aspiration pneumonia, aspiration pneumonitis -Speech therapy eval -Barium swallow, no significant aspiration -CT of the chest 1.? Stable changes of bullous emphysema and pulmonary fibrosis since 02/19/2023. Additional areas of bronchiectasis and honeycombing in the lower lung castillo. No obvious progression since the most recent exam. 2.? Mild cardiomegaly. 3.? Prior cholecystectomy. 4.? No pleural effusion. 5.? Stable mildly enlarged mediastinal and hilar lymph nodes. May be reactive. Patient's ESR is 127, his last PFT, showed severely diminished DLCO, with severe airflow obstruction -Patient CT of his chest in February 2023 -1. Extensive lower lobe airway changes with diffuse bronchiectasis, bronchiolitis and peribronchial consolidation/fibrosis overall not significantly changed in overall severity from previous examination. 2. ? Stable irregular subpleural densities right lung believed secondary to chronic subsegmental atelectasis and scarring. 3. ? COPD with diffuse upper lobe emphysematous changes, stable. 4. ? Mild mediastinal lymphadenopathy, unchanged favoring benign etiology. Follow-up as clinically indicated. -Possible restrictive lung disease? -I have ordered a rheumatology panel -We will have patient follow-up with pulmonary as outpatient Pneumonia -Prior antibiotics as above -Will place on aspiration precautions -Speech therapy eval -Consider pulmonary evaluation for possible bronchoscopy Type 2 diabetes mellitus -Blood sugars remain elevated, currently on Lantus every 12 hours, increase to Lantus 20 units every 12 hours -Moderate dose sliding scale Chronic kidney disease -Monitor urine output Iron deficiency anemia -Monitor hemoglobin CAD -No chest pain complaints Hyponatremia today, resolved NSTEMI -Likely supply/demand ischemia from respiratory failure -Continue telemetry monitoring Goals of care discussion, patient wants to be a full code, agreeable to ICU admission Lovenox for DVT prophylaxis Protonix for GI prophylaxis Will set up for BiPAP at [facility] facility Plan for today, up out of bed, Zosyn, switch to Augmentin, overnight pulse ox, plan on discharging in the next 24 hours Attestations Medical Necessity Statement*: Patient requires hospitalization for acute hypoxic respiratory failure secondary COPD, Diagnoses Type 2 diabetes mellitus E11.9 CKD (chronic kidney disease) N18.9 Interstitial pulmonary fibrosis J84.10 Acute and chronic respiratory failure with hypoxia J96.21 Acute exacerbation of chronic obstructive airways disease J44.1 Pneumonia J18.9 Laterality: bilateral Lung location: lower lobe of lung Pneumonia type: due to unspecified organism Goals of care, counseling/discussion Z71.89 NSTEMI (non-ST elevated myocardial infarction) I21.4 Hyponatremia E87.1 Aspiration pneumonia J69.0
[2023-03-30] MEDS: tamsulosin 0.4 mg Capsule PO (20:14)
[2023-03-30] MEDS: atorvastatin 40 mg Tablet PO (20:15)
[2023-03-30] MEDS: insulin glargine 100 units/1 mL 20 UNIT SUBCUT (20:35)
[2023-03-30 20:42] LABS: Glucose Point of Care 391 mg/dL (70-110)
[2023-03-31] VITALS (17 sets, daily range): BP systolic 120–164; BP diastolic 64–80; PULSE 63–83; RESP 16–20; TEMP 36.2–36.6; O2SAT 90–97
[2023-03-31] MEDS: ipratropium-albuterol 3 mL Neb INHALATION ×6 (03:07→23:14)
[2023-03-31 06:39] LABS: Glucose Point of Care 356 mg/dL (70-110)
[2023-03-31 07:04] LABS: Basophils # 0.1 10^3/uL (0.0-0.1); Basophils % 0.5 %; Eosinophils # 0.1 10^3/uL (0.0-0.8); Eosinophils % 0.4 %; Hematocrit 40.7 % (42.0-52.0); Hemoglobin 11.8 g/dL (11.7-16.6); Lymphocytes # 3.8 10^3/uL (0.8-4.8); Lymphocytes % 19.1 %; Mean Corpuscular Hemoglobin 23.1 pg (28.0-34.0); Mean Corpuscular Volume 79.8 fl (80-94); Mean Platelet Volume 9.2 fL (7.4-10.4); Monocytes # 1.7 10^3/uL (0.2-0.9); Monocytes % 8.7 %; Neutrophils # 13.35 10^3/uL (1.8-7.7); Neutrophils % 66.9 %; Nucleated Red Blood Cells % 0 %; Platelet Count 465 10^3/cmm (130-400); Red Cell Distribution Width 17.1 % (12.1-15.1)
[2023-03-31] MEDS: budesonide 0.5 mg/2 mL Neb INHALATION ×2 (07:16→20:19)
[2023-03-31 07:24] LABS: Alanine Aminotransferase 35 U/L (0-41); Alkaline Phosphatase 99 U/L (40-130); Anion Gap 12.3 (5-19); Aspartate Amino Transferase 17 U/L (0-40); Blood Urea Nitrogen 46 mg/dL (8-23); Calcium 9.7 mg/dL (8.5-10.5); Carbon Dioxide 36 mmol/L (22-29); Chloride 91 mmol/L (98-107); Globulin 4.2 g/dL (1.3-4.6); Glomerular Filtration Rate 40.7 mL/min (90-130); Glucose 364 mg/dL (65-115); Magnesium 1.5 mg/dL (1.7-2.3); Osmolality Calculated 305 mOsm/kg (285-295); Phosphorus 2.8 mg/dL (2.5-4.5); Potassium 5.3 mmol/L (3.5-5.1); Sodium 134 mmol/L (136-145); Total Bilirubin 0.2 mg/dL (0.15-1.2); Total Protein 7.2 g/dL (6.6-8.7)
[2023-03-31] MEDS: amoxicillin-clav 875-125 mg Tablet 1 TAB PO ×2 (08:48→18:02)
[2023-03-31] MEDS: predniSONE 20 mg Tablet 40 MG PO (08:48)
[2023-03-31] MEDS: enoxaparin 40 mg/0.4 mL Syringe SUBCUT (08:48)
[2023-03-31] MEDS: metoprolol tartrate 25 mg Tablet PO ×2 (08:48→18:02)
[2023-03-31] MEDS: venlafaxine ER (24HR) 150 mg Capsule PO (08:48)
[2023-03-31] MEDS: BuSPIRONE 10 mg Tablet PO ×3 (08:49→21:46)
[2023-03-31] MEDS: pantoprazole 40 mg SDV IVP (08:49)
[2023-03-31] MEDS: sucralfate 1 gm Tablet PO ×2 (08:49→18:02)
[2023-03-31] MEDS: montelukast sodium 10 mg Tablet PO (08:49)
[2023-03-31] MEDS: citalopram 20 mg Tablet PO (08:49)
[2023-03-31] MEDS: aspirin 81 mg EC Tablet PO (08:49)
[2023-03-31] MEDS: mirtazapine 15 mg Tablet PO (08:49)
[2023-03-31] MEDS: insulin lispro 100 unit/1 mL SUBCUT ×4 (08:50→21:48)
[2023-03-31] MEDS: sodium polystyrene sulfonate 15 gm/60 mL Btl PO (08:58)
[2023-03-31] MEDS: magnesium lactate 84 mg Tablet PO (08:59)
[2023-03-31] MEDS: insulin glargine 100 units/1 mL 25 UNIT SUBCUT ×2 (09:01→21:47)
[2023-03-31 10:45] LABS: SARS Covid-2 Antigen negative (Negative)
--- NOTE | 2023-03-31 11:06 | PM.DCS ---
Discharge Providers Date of Admission: 03/26/23 06:27 Date of Discharge: March 31, 2023 Attending Provider at Admission: Luzma Blevins MD Attending Provider at Discharge: Uli Emery MD Primary Care Provider: Alfredito Muro DO Diagnoses at Discharge Discharge Diagnosis (1) Type 2 diabetes mellitus: Status: Acute (2) CKD (chronic kidney disease): Status: Acute (3) Interstitial pulmonary fibrosis: Status: Acute (4) Acute and chronic respiratory failure with hypoxia: Status: Acute (5) Acute exacerbation of chronic obstructive airways disease: Status: Resolved (6) Pneumonia: Status: Inactive Qualifiers: Laterality: bilateral Lung location: lower lobe of lung Pneumonia type: due to unspecified organism Qualified Code(s): J18.9 - Pneumonia, unspecified organism (7) Goals of care, counseling/discussion: Status: Acute (8) NSTEMI (non-ST elevated myocardial infarction): Status: Resolved (9) Hyponatremia: Status: Acute (10) Aspiration pneumonia: Status: Acute Reason for Visit Reason for Visit: LOW O2 SAT Hospital Course Hospital Course Patient was admitted to [facility] for acute on chronic hypoxic respiratory failure secondary to COPD, aspiration pneumonia, pneumonia, with history of centrilobular emphysema with history of MRSA, requiring ICU admission, received BiPAP therapy, broad-spectrum antibiotic therapy, and clinically monitored. Overall patient's clinical condition improved, cultures so far have been unremarkable, repeat CT chest shows evidence of recurrent aspiration, I did have speech therapy work with him and did a barium swallow which did not show any significant evidence of aspiration. Nonetheless I have discharged him with a steroid burst, Augmentin, with close follow-up with primary care as outpatient. Patient potentially has evidence of interstitial lung disease given his diminished DLCO, his ESR is 127, I have ordered a rheumatology panel, he does have severe emphysema, severe centrilobular emphysema, and he quit smoking 5 months ago. Nonetheless, as he benefited from BiPAP therapy as inpatient, I discharged him with BiPAP therapy through group home facility, to follow-up with pulmonary as outpatient Type 2 diabetes mellitus, blood sugars were elevated during his hospitalization, Lantus increased to 25 units every 12 hours, and managed with a moderate dose sliding scale Patient is WBC on hours was 20,000, he remains afebrile, clinically improving, no recurrent fevers, no hypotension, no bacteremia, overall clinically improved, no complaints of chills, no cough, no abdominal pain, no headache, blurry vision, no neck pain, no dysuria, hematuria no other signs of infection so far during his inpatient stay. I am going to have him follow-up through primary care to recheck his CBC in 24 hours - Please take antibiotics as prescribed -If you have any fevers, chills, go to the emergency room -Please have your mcc recheck your CBC tomorrow -Please use BiPAP as prescribed, schedule during the night, as needed during the day -Lantus 25 units twice daily -Monitor blood sugars closely, we might have to come down on the Lantus based on your blood sugars and you are coming off prednisone in the next 3 days -Discharged on NovoLog sliding scale --Please monitor your blood sugars closely -Monitor your blood sugars 3 times daily as after meals -Please record your blood sugars, and a blood sugar log -For your NovoLog -Please inject blood sugar after meals based on sliding scale provided -Do not inject insulin if you do not eat as hypoglycemia kills -This is a NovoLog sliding scale -Insulin sliding ?fingerstick? Insulin ?141-180?0 units/sq 181-220?2 units/sq ?221-260?4 units/sq ?261-300 6 units/sq ?301-350?8 units/sq ?351-400 10 units/sq ?401-450?12 units/sq >450? 14units/sq -If your blood sugar is greater than 500 go to the emergency room -If your blood sugar is less than 60 or at anytime you feel lightheaded or dizzy or diaphoretic or have chest palpitations check your blood sugar, and eat a hard candy or drink orange juice and go immediately to the emergency room -Remember hypoglycemia kills, so if his blood sugar is less than 60 we have to increase it by taking in a sugary meal such as a hard candy or orange juice and go to the emergency room -Please see pulmonary in 2 weeks -Your white blood cell count was 20,000 on discharge, no fevers, no bacteremia, if you have any fevers, or chills, or cough, or signs of infection please go to emergency room Physical Exam Const: COMMON NORMALS: no acute distress and patient oriented x3 Resp: COMMON NORMALS: normal respiratory effort, No retractions, No use of accessory muscles and clear to auscultation bilaterally AUSCULTATION: clear to auscultation bilaterally Cardio: COMMON NORMALS: regular rate, regular rhythm, S1 normal heart sound present and S2 normal heart sound present RATE: regular rate RHYTHM: regular rhythm HEART SOUNDS: S1 normal heart sound present and S2 normal heart sound present GI: COMMON NORMALS: Normal to inspection, nondistended, normoactive bowel sounds present and non-tender Extremity: COMMON NORMALS: no pedal edema Neuro: COMMON NORMALS: patient oriented x3 Psych: COMMON NORMALS: mental status grossly normal Urinary Catheter Management: Akhtar: Cath Placed During This Visit: yes Reason for Continuing Indwelling Catheter: Acute Urinary Retention or Obstruction Urinary Catheter Date of Insertion: 03/26/23 Urinary Catheter Time of Insertion: 09:30 Discharge Data Studies Completed and Pending Completed Studies During Hospitalization Category Date Time Status CT chest wo con [id number] Routine Cat Scan 03/28/23 09:43 Completed FL barium swallow modifd [id number] Routine Exams 03/28/23 08:17 Completed XR chest 1V portable [id number] Stat Exams 03/26/23 05:11 [place] [id number] Routine Ultrasound 03/26/23 08:09 Completed Pending at discharge Category Date Time Status DENY Profile Rheumatology Stat Lab 03/26/23 09:10 Results Complete Blood Count w/Auto AM LABS Lab 04/01/23 04:00 Ordered Comprehensive Metabolic Panel AM LABS Lab 04/01/23 04:00 Ordered Magnesium AM LABS Lab 04/01/23 04:00 Ordered Phosphorus AM LABS Lab 04/01/23 04:00 Ordered Sputum Culture and Gram Stain Stat Lab 03/26/23 08:40 Uncollected Radiology Impressions Chest X-Ray 03/26/23 05:11 IMPRESSION: 1. Increased conspicuity of extensive bilateral lower lung opacities compared to 02/18/2023. Distribution of the abnormalities is similar. The difference may be related to increasing severity of chronic lung disease, an acute process superimposed on chronic lung disease, or differences in radiographic technique. 2. Possible small left pleural effusion. Venous Duplex 03/26/23 08:09 IMPRESSION: No sonographic evidence of deep vein thrombosis. Modified Barium Swallow 03/28/23 08:17 IMPRESSION: Modified barium swallow as above. Chest CT 03/28/23 09:43 IMPRESSION: 1. Stable changes of bullous emphysema and pulmonary fibrosis since 02/19/2023. Additional areas of bronchiectasis and honeycombing in the lower lung castillo. No obvious progression since the most recent exam. 2. Mild cardiomegaly. 3. Prior cholecystectomy. 4. No pleural effusion. 5. Stable mildly enlarged mediastinal and hilar lymph nodes. May be reactive. Laboratory Results WBC 20.0 10^3/uL (4.0-10.0) H 03/31/23 06:35 RBC 5.10 10^6/uL (4.1-5.3) 03/31/23 06:35 Hgb 11.8 g/dL (11.7-16.6) 03/31/23 06:35 Hct 40.7 % (42.0-52.0) L 03/31/23 06:35 MCV 79.8 fl (80-94) L 03/31/23 06:35 MCH 23.1 pg (28.0-34.0) L 03/31/23 06:35 MCHC 29.0 g/dL (30.0-36.0) L 03/31/23 06:35 RDW 17.1 % (12.1-15.1) H 03/31/23 06:35 Plt Count 465 10^3/cmm (130-400) H 03/31/23 06:35 MPV 9.2 fL (7.4-10.4) 03/31/23 06:35 Neut % (Auto) 66.9 % 03/31/23 06:35 Lymph % (Auto) 19.1 % 03/31/23 06:35 [place] % (Auto) 8.7 % 03/31/23 06:35 Eos % (Auto) 0.4 % 03/31/23 06:35 Baso % (Auto) 0.5 % 03/31/23 06:35 Neut # (Auto) 13.35 10^3/uL (1.8-7.7) H 03/31/23 06:35 Lymph # (Auto) 3.8 10^3/uL (0.8-4.8) 03/31/23 06:35 [place] # (Auto) 1.7 10^3/uL (0.2-0.9) H 03/31/23 06:35 Eos # (Auto) 0.1 10^3/uL (0.0-0.8) 03/31/23 06:35 Baso # (Auto) 0.1 10^3/uL (0.0-0.1) 03/31/23 06:35 Nucleated RBC % (auto) 0 % 03/31/23 06:35 Nucleated RBCs # 0.0 /100WBC 03/31/23 06:35 ESR 127 mm/hr (0-10) H 03/26/23 09:10 D-Dimer 0.72 ug/mIFEU (0-0.59) H 03/26/23 07:56 Specimen Type Arterial 03/29/23 04:00 Sample Site Radial, left 03/29/23 04:00 ABG pH 7.41 (7.35-7.45) 03/29/23 04:00 ABG pCO2 58.9 mmHg (35-45) H 03/29/23 04:00 ABG pO2 66.0 mmHg (80.0-100.0) L 03/29/23 04:00 ABG HCO3 37.1 mmol/L (22-26) H 03/29/23 04:00 ABG Base Excess 10.5 mmol/L (-2.0-2.0) H 03/29/23 04:00 Baldo Test Pos 03/29/23 04:00 Hematocrit 34.6 % (42-52) L 03/29/23 04:00 Hgb O2 Saturation 71.0 % (95-100) L 03/26/23 05:33 Carboxyhemoglobin 1.6 %THgb (0.4-20.1) 03/26/23 05:33 Methemoglobin 0.3 % (0.4-1.5) L 03/26/23 05:33 Total Hemoglobin 11.9 g/dL (14-18) L 03/26/23 05:33 O2 Delivery Device Nc 03/29/23 04:00 O2 Liters/Min 2.0 % 03/29/23 04:00 FiO2 45.0 % 03/28/23 04:00 Test Desk Operator ID [email or web address] 03/29/23 04:00 Sodium 134 mmol/L (136-145) L 03/31/23 06:35 Potassium 5.3 mmol/L (3.5-5.1) H 03/31/23 06:35 Chloride 91 mmol/L (98-107) L 03/31/23 06:35 Carbon Dioxide 36 mmol/L (22-29) H 03/31/23 06:35 Anion Gap 12.3 (5-19) 03/31/23 06:35 BUN 46 mg/dL (8-23) H 03/31/23 06:35 Creatinine 1.7 mg/dL (0.7-1.2) H 03/31/23 06:35 GFR Calculation 40.7 mL/min (90-130) L 03/31/23 06:35 Glucose 364 mg/dL (65-115) H 03/31/23 06:35 POC Glucose 356 mg/dL (70-110) H 03/31/23 06:32 Estimat Average Glucose 209 03/26/23 05:30 Hemoglobin A1c 8.9 % (4.0-6.0) H 03/26/23 05:30 Calculated Osmolality 305 mOsm/kg (285-295) H 03/31/23 06:35 Lactic Acid 1.2 mmol/L (0.5-2.2) 03/26/23 05:30 Calcium 9.7 mg/dL (8.5-10.5) 03/31/23 06:35 Phosphorus 2.8 mg/dL (2.5-4.5) 03/31/23 06:35 Magnesium 1.5 mg/dL (1.7-2.3) L 03/31/23 06:35 Total Bilirubin 0.2 mg/dL (0.15-1.2) 03/31/23 06:35 AST 17 U/L (0-40) 03/31/23 06:35 ALT 35 U/L (0-41) 03/31/23 06:35 Alkaline Phosphatase 99 U/L (40-130) 03/31/23 06:35 Troponin T Baseline 67 ng/L (0-15) H 03/26/23 07:56 Troponin T 120 Minute 60.95 ng/L (0-15) H 03/26/23 10:08 Delta Troponin T -6.05 ABS# (0-10) L 03/26/23 10:08 Troponin T Hi Sens 6Hr 52.76 ng/L (0-15) H 03/26/23 14:03 Troponin T Hi Sens 6Hr Delta -14.24 ng/L (0-12) L 03/26/23 14:03 C-Reactive Protein 23.6 mg/L (0.0-4.9) H 03/29/23 06:15 NT-Pro-B Natriuret Pep 1461 pg/mL (0-125) H 03/29/23 06:15 Total Protein 7.2 g/dL (6.6-8.7) 03/31/23 06:35 Albumin 3.0 g/dL (3.5-5.2) L 03/31/23 06:35 Globulin 4.2 g/dL (1.3-4.6) 03/31/23 06:35 Procalcitonin 0.28 ng/mL (0-0.5) 03/29/23 06:15 TSH 1.02 uIU/mL (0.27-4.20) 03/26/23 05:30 Urine Color Yellow (Yellow) 03/26/23 06:20 Urine Appearance Clear (CLEAR) 03/26/23 06:20 Urine pH 5 (5-7) 03/26/23 06:20 Ur Specific [place] 1.020 (1.005-1.030) 03/26/23 06:20 Urine Protein Neg (Negative) 03/26/23 06:20 Urine Glucose (UA) Norm (Normal) 03/26/23 06:20 Urine Ketones Negative (Negative) 03/26/23 06:20 Urine Blood 3+ (Negative) H 03/26/23 06:20 Urine Nitrate Negative (Negative) 03/26/23 06:20 Urine Bilirubin Neg (Negative) 03/26/23 06:20 Urine Urobilinogen Norm mg/dL (Negative) 03/26/23 06:20 Ur Leukocyte Esterase Negative (Negative) 03/26/23 06:20 Urine RBC 0-4 /hpf (0-2) H 03/26/23 06:20 Urine WBC None /hpf (0-5) 03/26/23 06:20 Ur Squamous Epith Cells None /hpf (0-5) 03/26/23 06:20 Amorphous Sediment Not Reportable 03/26/23 06:20 Urine Bacteria 1+ /hpf (NONE) H 03/26/23 06:20 Coarse Granular Casts 0-4 /lpf H 03/26/23 06:20 Nasal Influ A H1 2009 PCR Not detected (NOT DETECT) 03/26/23 09:45 Vancomycin Trough 18.8 ug/mL (10-15) H 03/29/23 17:15 DENY IFA Animal Tis Res Negative (NEGATIVE) 03/26/23 09:10 ARCHANA-1 Antibody <1.0 neg AI (<1.0 NEG) 03/26/23 09:10 SS-A Antibody <1.0 neg AI (<1.0 NEG) 03/26/23 09:10 SS-B Antibody <1.0 neg AI (<1.0 NEG) 03/26/23 09:10 Sm (Delaney) Antibody <1.0 neg AI (<1.0 NEG) 03/26/23 09:10 FONDANT PUFF MAKER Antibody <1.0 neg AI (<1.0 NEG) 03/26/23 09:10 Scl-70 Antibody <1.0 neg AI (<1.0 NEG) 03/26/23 09:10 Centromere B Antibody <1.0 neg AI (<1.0 NEG) 03/26/23 09:10 Thyroid Peroxidase Ab 1 IU/mL (<9) 03/26/23 09:10 Complement C3c 150 mg/dL (82-185) 03/26/23 09:10 Complement C4c 44 mg/dL (15-53) 03/26/23 09:10 CH50 Classical Pathway >60 U/mL (31-60) H 03/26/23 09:10 Adenovirus (PCR) Not detected (NOT DETECT) 03/26/23 09:45 C. pneumoniae DNA (PCR) Not detected (NOT DETECT) 03/26/23 09:45 Coronavirus 229E (PCR) Not detected (NOT DETECT) 03/26/23 09:45 Human Metapneumovir PCR Not detected (NOT DETECT) 03/26/23 09:45 Influenza A (H1) PCR Not detected (NOT DETECT) 03/26/23 09:45 Influenza A (H3) PCR Not detected (NOT DETECT) 03/26/23 09:45 Influenza Type A (PCR) Not detected (NOT DETECT) 03/26/23 09:45 Influenza Type B (PCR) Not detected (NOT DETECT) 03/26/23 09:45 M. pneumoniae (PCR) Not detected (NOT DETECT) 03/26/23 09:45 Parainfluenza 1 (PCR) Not detected (NOT DETECT) 03/26/23 09:45 Parainfluenza 2 (PCR) Detected (NOT DETECT) A 03/26/23 09:45 Parainfluenza 3 (PCR) Not detected (NOT DETECT) 03/26/23 09:45 Parainfluenza 4 (PCR) Not detected (NOT DETECT) 03/26/23 09:45 RSV Type A (PCR) Not detected (NOT DETECT) 03/26/23 09:45 RSV Type B (PCR) Not detected (NOT DETECT) 03/26/23 09:45 Entero/Rhino (PCR) Not detected (NOT DETECT) 03/26/23 09:45 SARS-CoV-2 (PCR) Not detected (NOT DETECT) 03/26/23 09:45 SARS-CoV-2 Ag (Rapid) negative (Negative) 03/31/23 10:01 Vitals Last Vital Signs Temp 97.8 F 03/31/23 08:00 Pulse 75 03/31/23 08:00 Resp 18 03/31/23 08:00 BP 135/77 03/31/23 08:00 Pulse Ox 97 03/31/23 08:00 O2 Del Method Nasal Cannula 03/31/23 07:20 O2 Flow Rate 3 03/31/23 07:20 FiO2 3 03/30/23 16:00 Discharge Plan Discharge Patient Disposition: Home Condition: Stable Prescriptions: New prednisone 20 mg Tablet 40 mg PO DAILY 3 Days Qty: 6 0RF gabapentin 300 mg Capsule 300 mg PO Q24H 30 Days Qty: 30 0RF amoxicillin-pot clavulanate 875-125 mg Tablet 1 tab PO BID 3 Days Qty: 6 0RF Continued aspirin [Adult Low Dose Aspirin] 81 mg tablet,delayed release (DR/EC) 81 mg PO DAILY atorvastatin 40 mg tablet 40 mg PO BEDTIME buspirone 10 mg tablet 10 mg PO TID metoprolol tartrate 25 mg tablet 25 mg PO BID Rx Instructions: Hold: Diastolic Blood Pressure <50, pulse is <50. Systolic Blood Pressure is <100 tamsulosin 0.4 mg capsule 0.4 mg PO BEDTIME albuterol sulfate 2.5 mg /3 mL (0.083 %) solution for nebulization 2.5 mg inhalation Q4H PRN (Reason: shortness of breath) citalopram 10 mg tablet 20 mg PO DAILY cetirizine 5 mg tablet 5 mg PO DAILY ferrous sulfate 325 mg (65 mg iron) tablet 325 mg PO EVERY OTHER DAY hydrocodone-acetaminophen 5-325 mg tablet 1 tab PO Q8H PRN (Reason: Moderate Pain (Scale Score 5-6)) polyethylene glycol 3350 [Miralax] 17 gram Powder In Packet 17 g PO DAILY PRN (Reason: Constipation) acetaminophen [Mapap Arthritis Pain] 650 mg Tablet Extended Release 650 mg PO Q6H PRN (Reason: pain) bisacodyl 10 mg Suppository 10 mg NC DAILY PRN (Reason: Constipation) Enema Disposable 19-7 gram/118 mL Enema 118 ml NC PRN PRN (Reason: Constipation) sucralfate 1 gram tablet 1 g PO BID venlafaxine 150 mg Capsule,Extended Release 24hr 150 mg PO DAILY lorazepam 0.5 mg Tablet 0.5 mg PO DAILY PRN (Reason: Anxiety) pantoprazole 40 mg tablet,delayed release (DR/EC) 40 mg PO BID budesonide 0.25 mg/2 mL suspension for nebulization 0.25 mg inhalation BID mirtazapine 15 mg tablet 15 mg PO DAILY magnesium L-lactate 84 mg Tablet Extended Release 84 mg PO DAILY montelukast 10 mg tablet 10 mg PO DAILY benzonatate 100 mg Capsule 100 mg PO TID PRN (Reason: Cough) Qty: 90 0RF ipratropium bromide 0.02 % Solution 2.5 ml INHALATION QID nicotine 7 mg/24 hr Patch 24 Hour 1 patch TRANSDERMAL Q24H guaifenesin 600 mg Tablet Extended Release 12hr 600 mg PO Q12H insulin aspart U-100 [Novolog FlexPen U-100 Insulin] 100 unit/mL (3 mL) insulin pen See Rx Instructions .ROUTE .COMPLEX Qty: 15 0RF Rx Instructions: inject subcut, three times daily, after meals, based on sliding scale provided Changed insulin glargine [Basaglar KwikPen U-100 Insulin] 100 unit/mL (3 mL) insulin pen 25 unit SUBCUT Q12H Qty: 15 0RF Discontinued insulin aspart U-100 [Novolog U-100 Insulin aspart] 100 unit/mL Solution 15 unit SUBCUT AC Discharge Orders: Discharge Order (Routine); Ordered 03/31/23 Ordered By: Uli Emery Other Ambulatory Orders: DME: BIPAP (Order) Location: None Selected Ordered By: Uli Emery Referrals: Datar,Horace Duarte MD [Physician] - 2 weeks Alfredito Muro DO [Primary Care Provider] - Discharge Diet: Cardiac Discharge Activity: Resume usual activity Patient Instructions: Opioid Safety Activity Restrictions/Additional Instructions: - Please take antibiotics as prescribed -If you have any fevers, chills, go to the emergency room -Please have your mcc recheck your CBC tomorrow -Please use BiPAP as prescribed, schedule during the night, as needed during the day -Lantus 25 units twice daily -Monitor blood sugars closely, we might have to come down on the Lantus based on your blood sugars and you are coming off prednisone in the next 3 days -Discharged on NovoLog sliding scale --Please monitor your blood sugars closely -Monitor your blood sugars 3 times daily as after meals -Please record your blood sugars, and a blood sugar log -For your NovoLog -Please inject blood sugar after meals based on sliding scale provided -Do not inject insulin if you do not eat as hypoglycemia kills -This is a NovoLog sliding scale -Insulin sliding ?fingerstick? Insulin ?141-180?0 units/sq 181-220?2 units/sq ?221-260?4 units/sq ?261-300 6 units/sq ?301-350?8 units/sq ?351-400 10 units/sq ?401-450?12 units/sq >450? 14units/sq -If your blood sugar is greater than 500 go to the emergency room -If your blood sugar is less than 60 or at anytime you feel lightheaded or dizzy or diaphoretic or have chest palpitations check your blood sugar, and eat a hard candy or drink orange juice and go immediately to the emergency room -Remember hypoglycemia kills, so if his blood sugar is less than 60 we have to increase it by taking in a sugary meal such as a hard candy or orange juice and go to the emergency room -Please see pulmonary in 2 weeks -Your white blood cell count was 20,000 on discharge, no fevers, no bacteremia, if you have any fevers, or chills, or cough, or signs of infection please go to emergency room Discharge Attestations Time Spent in Discharge Care*: greater than 30 min Status at Discharge: Cognitive status at discharge: cognitively intact, Behavioral status at discharge: cooperative, Quality Metrics Clinical Quality Measures [ No reported AMI, CVA or VTE this stay] Coding Level of Care Code 01130 Total time (in minutes) for Discharge: 45 Diagnoses Type 2 diabetes mellitus E11.9 CKD (chronic kidney disease) N18.9 Interstitial pulmonary fibrosis J84.10 Acute and chronic respiratory failure with hypoxia J96.21 Acute exacerbation of chronic obstructive airways disease J44.1 Pneumonia J18.9 Laterality: bilateral Lung location: lower lobe of lung Pneumonia type: due to unspecified organism Goals of care, counseling/discussion Z71.89 NSTEMI (non-ST elevated myocardial infarction) I21.4 Hyponatremia E87.1 Aspiration pneumonia J69.0
[2023-03-31 11:26] LABS: Glucose Point of Care 241 mg/dL (70-110)
[2023-03-31] MEDS: gabapentin 300 mg Capsule PO (11:53)
--- NOTE | 2023-03-31 15:11 | PC.OT ---
OT TREATMENT HELD THIS DATE DUE TO PENDING D/C
[2023-03-31 16:48] LABS: Glucose Point of Care 300 mg/dL (70-110)
[2023-03-31 20:35] LABS: Glucose Point of Care 306 mg/dL (70-110)
[2023-03-31] MEDS: tamsulosin 0.4 mg Capsule PO (21:46)
[2023-03-31] MEDS: atorvastatin 40 mg Tablet PO (21:46)
[2023-04-01] VITALS (11 sets, daily range): BP systolic 122–134; BP diastolic 72–78; PULSE 62–94; RESP 16–20; TEMP 36.4–36.9; O2SAT 88–94
[2023-04-01 00:30] LABS: DNA AB (DS) CRITHIDIA,IFA NEGATIVE (NEGATIVE)
[2023-04-01] MEDS: ipratropium-albuterol 3 mL Neb INHALATION ×4 (03:06→16:11)
[2023-04-01 06:22] LABS: Basophils # 0.1 10^3/uL (0.0-0.1); Basophils % 0.6 %; Eosinophils # 0.3 10^3/uL (0.0-0.8); Eosinophils % 1.4 %; Hematocrit 40.1 % (42.0-52.0); Lymphocytes # 4.9 10^3/uL (0.8-4.8); Lymphocytes % 22.6 %; Mean Corpuscular HGB Conc 29.9 g/dL (30.0-36.0); Mean Corpuscular Hemoglobin 23.2 pg (28.0-34.0); Mean Corpuscular Volume 77.6 fl (80-94); Monocytes # 2.1 10^3/uL (0.2-0.9); Monocytes % 9.5 %; Neutrophils # 13.14 10^3/uL (1.8-7.7); Neutrophils % 60.6 %; Nucleated Red Blood Cells % 0 %; Platelet Count 514 10^3/cmm (130-400); Red Blood Count 5.17 10^6/uL (4.1-5.3); Red Cell Distribution Width 17.4 % (12.1-15.1); White Blood Count 21.7 10^3/uL (4.0-10.0)
[2023-04-01 06:35] LABS: Glucose Point of Care 211 mg/dL (70-110)
[2023-04-01 06:40] LABS: Slide Review Slide Review Perform
[2023-04-01 06:42] LABS: Alanine Aminotransferase 30 U/L (0-41); Albumin Level 3.1 g/dL (3.5-5.2); Alkaline Phosphatase 96 U/L (40-130); Anion Gap 15.6 (5-19); Aspartate Amino Transferase 12 U/L (0-40); Blood Urea Nitrogen 48 mg/dL (8-23); Calcium 9.7 mg/dL (8.5-10.5); Carbon Dioxide 32 mmol/L (22-29); Chloride 93 mmol/L (98-107); Glomerular Filtration Rate 43.6 mL/min (90-130); Glucose 206 mg/dL (65-115); Magnesium 1.4 mg/dL (1.7-2.3); Osmolality Calculated 301 mOsm/kg (285-295); Potassium 4.6 mmol/L (3.5-5.1); Sodium 136 mmol/L (136-145); Total Bilirubin 0.2 mg/dL (0.15-1.2); Total Protein 7.1 g/dL (6.6-8.7)
[2023-04-01] MEDS: budesonide 0.5 mg/2 mL Neb INHALATION (08:19)
[2023-04-01] MEDS: insulin glargine 100 units/1 mL 25 UNIT SUBCUT (08:56)
[2023-04-01] MEDS: enoxaparin 40 mg/0.4 mL Syringe SUBCUT (08:56)
[2023-04-01] MEDS: amoxicillin-clav 875-125 mg Tablet 1 TAB PO ×2 (08:57→17:45)
[2023-04-01] MEDS: BuSPIRONE 10 mg Tablet PO ×2 (08:58→14:40)
[2023-04-01] MEDS: aspirin 81 mg EC Tablet PO (08:58)
[2023-04-01] MEDS: citalopram 20 mg Tablet PO (08:58)
[2023-04-01] MEDS: ferrous sulfate EC 325 mg Tablet PO (08:59)
[2023-04-01] MEDS: mirtazapine 15 mg Tablet PO (09:00)
[2023-04-01] MEDS: montelukast sodium 10 mg Tablet PO (09:00)
[2023-04-01] MEDS: metoprolol tartrate 25 mg Tablet PO ×2 (09:00→17:45)
[2023-04-01] MEDS: sucralfate 1 gm Tablet PO ×2 (09:01→17:45)
[2023-04-01] MEDS: venlafaxine ER (24HR) 150 mg Capsule PO (09:01)
[2023-04-01] MEDS: pantoprazole DR 40 mg Tablet PO (09:01)
[2023-04-01] MEDS: insulin lispro 100 unit/1 mL SUBCUT ×3 (09:02→17:44)
[2023-04-01] MEDS: magnesium lactate 84 mg Tablet PO ×2 (09:02→12:32)
[2023-04-01] MEDS: predniSONE 20 mg Tablet 40 MG PO (10:09)
--- NOTE | 2023-04-01 11:07 | P.PN_ITS ---
Subjective Subjective: this is progress note from 03/31/2023 patient was seen this morning, he is awaiting, his bipap, Vitals/I&O/Wt Last Vital Signs Temp 97.8 F 04/01/23 07:13 Pulse 86 04/01/23 08:23 Resp 16 04/01/23 08:19 BP 127/72 04/01/23 07:13 Pulse Ox 92 04/01/23 08:20 O2 Del Method Nasal Cannula 04/01/23 08:20 O2 Flow Rate 3 04/01/23 08:20 FiO2 3 03/30/23 16:00 03/31/23 04/01/23 04/01/23 22:59 06:59 14:59 Intake Total 480 / 1200 400 / 400 Output Total 300 / 300 1200 / 1500 Balance 180 / 900 -1200 / -300 400 / 400 Weight last 48 hrs Weight 83.489 kg Weight 79.379 kg Physical Exam Const: COMMON NORMALS: no acute distress and patient oriented x3 Resp: COMMON NORMALS: normal respiratory effort, No retractions, No use of accessory muscles and clear to auscultation bilaterally AUSCULTATION: clear to auscultation bilaterally Cardio: COMMON NORMALS: regular rate, regular rhythm, S1 normal heart sound present and S2 normal heart sound present RATE: regular rate RHYTHM: regular rhythm HEART SOUNDS: S1 normal heart sound present and S2 normal heart sound present GI: COMMON NORMALS: Normal to inspection, nondistended, normoactive bowel sounds present and non-tender Extremity: COMMON NORMALS: no pedal edema Neuro: COMMON NORMALS: patient oriented x3 Psych: COMMON NORMALS: mental status grossly normal Urinary Catheter Management: Akhtar: Cath Placed During This Visit: yes, but has since been removed by the nurse Reason for Continuing Indwelling Catheter: Decision to DC Catheter Urinary Catheter Date of Insertion: 03/26/23 Urinary Catheter Time of Insertion: 09:30 Date Urinary Catheter Removed: 03/31/23 Time Urinary Catheter Discontinued: 13:30 Data 04/01/23 06:11 04/01/23 06:11 A&P Assessment and plan (1) Type 2 diabetes mellitus: (2) CKD (chronic kidney disease): (3) Interstitial pulmonary fibrosis: (4) Acute and chronic respiratory failure with hypoxia: (5) Acute exacerbation of chronic obstructive airways disease: (6) Pneumonia: Qualifiers: Laterality: bilateral Lung location: lower lobe of lung Pneumonia type: due to unspecified organism Qualified Code(s): J18.9 - Pneumonia, unspe cified organism (7) Goals of care, counseling/discussion: (8) NSTEMI (non-ST elevated myocardial infarction): (9) Hyponatremia: (10) Aspiration pneumonia: Plan Acute hypoxic respiratory failure -Secondary to COPD exacerbation and pneumonia -With history of centrilobular emphysema -History of COVID-19 infection April 09 history of MRSA pneumonia Plan -Currently on general medical floors -Monitor respiratory status closely -BiPAP therapy, would recommend [facility] -Blood cultures, urine bacterial antigens, MRSA nares PCR -Switch to Augmentin -Switch to prednisone 40mg -Continue DuoNeb -Continue budesonide -Sputum cultures Prior CAT scans show evidence of aspiration pneumonia, aspiration pneumonitis -Speech therapy eval -Barium swallow, no significant aspiration -CT of the chest 1.? Stable changes of bullous emphysema and pulmonary fibrosis since 02/19/2023. Additional areas of bronchiectasis and honeycombing in the lower lung castillo. No obvious progression since the most recent exam. 2.? Mild cardiomegaly. 3.? Prior cholecystectomy. 4.? No pleural effusion. 5.? Stable mildly enlarged mediastinal and hilar lymph nodes. May be reactive. Patient's ESR is 127, his last PFT, showed severely diminished DLCO, with severe airflow obstruction -Patient CT of his chest in February 2023 -1. Extensive lower lobe airway changes with diffuse bronchiectasis, bronchiolitis and peribronchial consolidation/fibrosis overall not significantly changed in overall severity from previous examination. 2. ? Stable irregular subpleural densities right lung believed secondary to chronic subsegmental atelectasis and scarring. 3. ? COPD with diffuse upper lobe emphysematous changes, stable. 4. ? Mild mediastinal lymphadenopathy, unchanged favoring benign etiology. Follow-up as clinically indicated. -Possible restrictive lung disease? -I have ordered a rheumatology panel -We will have patient follow-up with pulmonary as outpatient Pneumonia -Prior antibiotics as above -Will place on aspiration precautions -Speech therapy eval -Consider pulmonary evaluation for possible bronchoscopy Type 2 diabetes mellitus -Blood sugars remain elevated, currently on Lantus every 12 hours, increase to Lantus 20 units every 12 hours -Moderate dose sliding scale Chronic kidney disease -Monitor urine output Iron deficiency anemia -Monitor hemoglobin CAD -No chest pain complaints Hyponatremia today, resolved NSTEMI -Likely supply/demand ischemia from respiratory failure -Continue telemetry monitoring Goals of care discussion, patient wants to be a full code, agreeable to ICU admission Lovenox for DVT prophylaxis Protonix for GI prophylaxis Will [facility] Plan for today, will discharge today Attestations Medical Necessity Statement*: Patient was seen this morning for respiratory failure Coding Level of Care Code Acute Code for Chg Fwd Diagnoses Type 2 diabetes mellitus E11.9 CKD (chronic kidney disease) N18.9 Interstitial pulmonary fibrosis J84.10 Acute and chronic respiratory failure with hypoxia J96.21 Acute exacerbation of chronic obstructive airways disease J44.1 Pneumonia J18.9 Laterality: bilateral Lung location: lower lobe of lung Pneumonia type: due to unspecified organism Goals of care, counseling/discussion Z71.89 NSTEMI (non-ST elevated myocardial infarction) I21.4 Hyponatremia E87.1 Aspiration pneumonia J69.0
[2023-04-01 11:27] LABS: Glucose Point of Care 282 mg/dL (70-110)
[2023-04-01] MEDS: gabapentin 300 mg Capsule PO (11:48)
[2023-04-01 16:49] LABS: Glucose Point of Care 264 mg/dL (70-110)
[2023-04-01 16:49] LABS: Glucose Point of Care 258 mg/dL (70-110)
== END 2023-04-01 19:45 | disposition skilled nursing facility (03) | DRG 177 ==
LOC: ER 05:42 → ICU 06:48 → MEDSURG 03-28 20:08
PROVIDERS: Admitting Provider Internal Medicine; Emergency Provider Emergency Medicine; PCP Internal Medicine; Visit Provider Family Medicine
DX: J69.0 Pneumonitis due to inhalation of food and vomit (principal); J96.21 Acute and chronic respiratory failure with hypoxia; I24.8 Other forms of acute ischemic heart disease; E87.1 Hypo-osmolality and hyponatremia; J43.2 Centrilobular emphysema; Z86.14 Personal history of Methicillin resistant Staphylococcus aureus infection; E11.22 Type 2 diabetes mellitus with diabetic chronic kidney disease; I12.9 Hypertensive chronic kidney disease with stage 1 through stage 4 chronic kidney disease, or unspecified chronic kidney disease; N18.9 Chronic kidney disease, unspecified; E11.51 Type 2 diabetes mellitus with diabetic peripheral angiopathy without gangrene; Z79.82 Long term (current) use of aspirin; Z79.51 Long term (current) use of inhaled steroids; Z79.891 Long term (current) use of opiate analgesic; Z79.4 Long term (current) use of insulin; F41.9 Anxiety disorder, unspecified; I25.10 Atherosclerotic heart disease of native coronary artery without angina pectoris; Z95.5 Presence of coronary angioplasty implant and graft; K21.9 Gastro-esophageal reflux disease without esophagitis; Z99.81 Dependence on supplemental oxygen; B95.62 Methicillin resistant Staphylococcus aureus infection as the cause of diseases classified elsewhere; Z87.01 Personal history of pneumonia (recurrent); Z86.16 Personal history of COVID-19; D63.1 Anemia in chronic kidney disease; D50.9 Iron deficiency anemia, unspecified; F17.210 Nicotine dependence, cigarettes, uncomplicated; Z85.828 Personal history of other malignant neoplasm of skin
CPT/HCPCS: 11102; 36415; 36416; 36600; 51702; 71045; 71250; 74230; 80053; 80202; 81001; 82803; 82805; 82962; 83036; 83605; 83735; 83880; 84100; 84145; 84443; 84484; 85025; 85378; 85651; 86140; 86160; 86162; 86235; 86255; 86376; 86403; 87040; 87426; 87486; 87581; 87633; 87641; 92611; 93005; 93970; 94640; 94660; 94664; 94762; 96365; 96372; 96375; 96376; 97110; 97161; 97165; 97530; 97535; 99203; 99285; C9113; J1100; J1650; J1815; J1940; J2543; J3370; J7512; J7626

== ENCOUNTER → 2023-04-28 15:24 | Outpatient (BNVA) | payer MEDICARE, MEDICAID, SELFPAY | PROVIDERS: PCP Internal Medicine; Visit Provider Internal Medicine Pulmonary Disease | DX: J43.2 Centrilobular emphysema; F41.1 Generalized anxiety disorder; Z95.5 Presence of coronary angioplasty implant and graft; Z71.6 Tobacco abuse counseling; R59.0 Localized enlarged lymph nodes; F17.210 Nicotine dependence, cigarettes, uncomplicated; Z86.16 Personal history of COVID-19; Z99.81 Dependence on supplemental oxygen; Z86.14 Personal history of Methicillin resistant Staphylococcus aureus infection | CPT/HCPCS: 99214 ==

== ENCOUNTER 2023-05-13 12:04 | Inpatient (IN) | payer MEDICARE, MEDICAID, SELFPAY ==
[2023-05-13 12:10] VITALS: BP 136/72; PULSE 83; RESP 26; TEMP 36.8; O2SAT 95; BMI 30.4
--- NOTE | 2023-05-13 12:15 | XR_ITS ---
WS: [id number] EXAMINATION: XR chest 1V portable [id number] REASON FOR EXAM: pneumonia hypoxia flu a/b positive COMPARISON: Recent CT and chest radiography ORDER DATE: 05/13/2023 12:45 PM FINDINGS/impression: Changes of emphysema with interstitial on chronic lung disease have been recentl y described. Nodular opacity in the central right lung base conspicuous on recent imaging possibly co uld be on the basis of underlying neoplasm that is less conspicuous due to the extensive chronic lung change. Recent imaging findings have been somewhat nonspecific. With the scattered irregular airspac e disease in both lung bases possibility of underlying pneumonia or aspiration pneumonia or pooled se cretions or bronchiectasis. There is the possibility of lytic change versus old fracture deformity in the left first and second ribs. Bilateral lateral pleural thickening as well as basilar pleural thic kening greater on the left. Suspect small bilateral effusions. Recommend continued close follow-up.
--- NOTE | 2023-05-13 12:17 | W.ED.SOB ---
HPI - SOB/Dyspnea General: Chief Complaint: Shortness of Breath/Dyspnea Stated Complaint: sob Time Seen by Provider: 05/13/23 12:09 History of Present Illness: HPI Narrative: Resents to the ER by EMS with complaints of influenza A and B positive and pneumonia. Patient was up at the hospital for 2 days and was discharged this morning. Patient had diagnosis of pneumonia and flu positive a and B. [facility] patient was on 5 L of oxygen with an O2 sat of 86%. EMS was called they gave him a DuoNeb breathing treatment kept him on 5 L and his O2 sat improved to 93%. They brought him here for further evaluation and treatment as this is his preferred hospital. EMS also stated patient's has generalized weakness. He was able to pivot and stand for transfer 1 time but when he tried to do it the second time he was unable to. Review of Systems General: Reports: 10 or more systems reviewed and unremarkable except in HPI and below PFSH ED PFSH: Medical History Anxiety disorder CAD (coronary artery disease) CKD (chronic kidney disease) COPD (chronic obstructive pulmonary disease) COVID-19 vaccine dose not administered Diabetes mellitus GERD (gastroesophageal reflux disease) Gout Hypertension Mediastinal adenopathy On home oxygen therapy Usually on 2 L by nasal cannula Pneumonia Positive DENY (antinuclear antibody) Prostatic hypertrophy PVD (peripheral vascular disease) Skin cancer Specific type unknown Tobacco use Surgical History History of cholecystectomy History of coronary artery stent placement X2 History of skin surgery Left neck for skin cancer Presence of coronary angioplasty implant and graft Family History Mother Cancer Father CAD (coronary artery disease) Social History Smoking and tobacco status: current some day smoker cigarettes Years cigarettes smoked: 62 Quit status (tobacco): not considering quitting Second hand smoke exposure: Yes Alcohol intake: former Substance/Drug Use: never Caregiver/support person: Yes Lives independently: No Housing: Assisted Marital status: / service: No Current occupational status: disabled Pets and animals: Yes Do you think of yourself as: Straight/Heterosexual Current gender identity: Male Physical Exam Const: COMMON NORMALS: no acute distress, average body habitus, patient oriented x3, no limitations, healthy appearing, alert and well nourished HENMT: COMMON NORMALS: normocephalic, atraumatic, hearing grossly normal bilaterally, external ears normal, Normal external nose present and moist oral mucous membranes HEAD & SCALP: normocephalic and atraumatic NOSE: Normal external nose present EXTERNAL EAR: Yes external ears normal Eye: COMMON NORMALS: Equal, round and reactive pupils present, EOMs intact bilaterally, conjunctivae normal and no scleral icterus CONJUNCTIVA: Yes conjunctivae normal PUPIL: Yes Equal, round and reactive pupils present Neck/C-Spine: COMMON NORMALS: full ROM, no lymphadenopathy, supple, no meningeal signs, no JVD and Thyroid normal THYROID: Thyroid normal Chest: COMMONS NORMALS: normal inspection of the chest and normal palpation of entire chest wall Resp: COMMON NORMALS: normal respiratory effort, No retractions and No use of accessory muscles; negative for clear to auscultation bilaterally (Coarse rhonchi throughout) AUSCULTATION: not clear to auscultation bilaterally (Coarse rhonchi throughout) Cardio: COMMON NORMALS: no JVD, regular rate, regular rhythm, S1 normal heart sound present, S2 normal heart sound present, No gallops present (Cardio), No clicks present (Cardio), No murmurs present (Cardio) and No rub (Cardio) RATE: regular rate RHYTHM: regular rhythm HEART SOUNDS: S1 normal heart sound present and S2 normal heart sound present GI: COMMON NORMALS: Normal to inspection, nondistended, normoactive bowel sounds present : COMMON NORMALS: Yes no CVA tenderness BLADDER/KIDNEY EXAM: Yes no CVA tenderness Back/Pelvis: COMMON NORMALS: no CVA tenderness Extremity: NARRATIVE EXTREMITY EXAM: negative for edema bilateral lower extremities Neuro: COMMON NORMALS: patient oriented x3 SENSORIUM/ORIENTATION: Yes alert MENINGEAL SIGNS: Yes no meningeal signs Course Vital Signs: Vital signs: Vital Signs Temperature 98.3 F 05/13/23 12:10 Pulse Rate 83 05/13/23 12:10 Respiratory Rate 26 H 05/13/23 12:10 Blood Pressure 136/72 05/13/23 12:10 Pulse Oximetry 95 05/13/23 12:10 Oxygen Delivery Me thod Nasal Cannula 05/13/23 12:10 Oxygen Flow Rate 5 05/13/23 12:10 MDM - SOB/Dyspnea Medical Decision Making Patient presents to the ER with hypoxia by EMS. Lab work was obtained CT was obtained consult with Dr. Duron was obtained patient will be admitted inpatient to [facility] with further orders and work-up noted. Differential Diagnosis Likely acute exacerbation of chronic obstructive airways disease and community acquired pneumonia; Unlikely congestive heart failure, asthma with exacerbation or pulmonary embolism Medical Records I reviewed the patient's medical records. Lab Data I reviewed the patient's lab results. 05/13/23 12:32 05/13/23 12:32 Labs/Radiology: Laboratory Results WBC 8.64 10^3/uL (3.29-11.43) 05/13/23 12:32 RBC 4.67 10^6/uL (3.85-5.65) 05/13/23 12:32 Hgb 10.90 g/dL (11.27-16.99) L 05/13/23 12:32 Hct 38.0 % (37-53) 05/13/23 12:32 MCV 81.4 fl (82-101) L 05/13/23 12:32 MCH 23.3 pg (27-33) L 05/13/23 12:32 MCHC 28.7 g/dL (30-55) L 05/13/23 12:32 RDW 17.4 % (12.1-15.1) H 05/13/23 12:32 Plt Count 356 10^3/cmm (157-399) 05/13/23 12:32 MPV 8.8 fL (7.4-10.4) 05/13/23 12:32 Neut % (Auto) 62.9 % 05/13/23 12:32 Lymph % (Auto) 21.9 % 05/13/23 12:32 [place] % (Auto) 10.6 % 05/13/23 12:32 Eos % (Auto) 2.4 % 05/13/23 12:32 Baso % (Auto) 0.6 % 05/13/23 12:32 Neut # (Auto) 5.43 10^3/uL (1.8-7.7) 05/13/23 12:32 Lymph # (Auto) 1.9 10^3/uL (0.8-4.8) 05/13/23 12:32 [place] # (Auto) 0.9 10^3/uL (0.2-0.9) 05/13/23 12:32 Eos # (Auto) 0.2 10^3/uL (0.0-0.8) 05/13/23 12:32 Baso # (Auto) 0.1 10^3/uL (0.0-0.1) 05/13/23 12:32 Nucleated RBC % (auto) 0 % 05/13/23 12:32 Nucleated RBCs # 0.0 /100WBC 05/13/23 12:32 Sodium 139 mmol/L (136-145) 05/13/23 12:32 Potassium 5.0 mmol/L (3.5-5.1) 05/13/23 12:32 Chloride 95 mmol/L (98-107) L 05/13/23 12:32 Carbon Dioxide 38 mmol/L (22-29) H 05/13/23 12:32 Anion Gap 11.0 (5-19) 05/13/23 12:32 BUN 40 mg/dL (8-23) H 05/13/23 12:32 Creatinine 1.9 mg/dL (0.7-1.2) H 05/13/23 12:32 GFR Calculation 35.6 mL/min (90-130) L 05/13/23 12:32 Glucose 252 mg/dL (65-115) H 05/13/23 12:32 Calculated Osmolality 306 mOsm/kg (285-295) H 05/13/23 12:32 Calcium 8.8 mg/dL (8.5-10.5) 05/13/23 12:32 Total Bilirubin 0.2 mg/dL (0.15-1.2) 05/13/23 12:32 AST 12 U/L (0-40) 05/13/23 12:32 ALT 9 U/L (0-41) 05/13/23 12:32 Alkaline Phosphatase 88 U/L (40-130) 05/13/23 12:32 Total Protein 7.4 g/dL (6.6-8.7) 05/13/23 12:32 Albumin 3.1 g/dL (3.5-5.2) L 05/13/23 12:32 Globulin 4.3 g/dL (1.3-4.6) 05/13/23 12:32 Discharge Plan Discharge Patient Disposition: Admitted As Inpatient Clinical Impression: Hypoxia, Influenza Condition: Stable Prescriptions: No Action aspirin [Adult Low Dose Aspirin] 81 mg tablet,delayed release (DR/EC) 81 mg PO DAILY atorvastatin 40 mg tablet 40 mg PO BEDTIME buspirone 10 mg tablet 10 mg PO TID metoprolol tartrate 25 mg tablet 25 mg PO BID Rx Instructions: Hold: Diastolic Blood Pressure <50, pulse is <50. Systolic Blood Pressure is <100 tamsulosin 0.4 mg capsule 0.4 mg PO BEDTIME albuterol sulfate 2.5 mg /3 mL (0.083 %) solution for nebulization 2.5 mg inhalation Q4H PRN (Reason: shortness of breath) citalopram 10 mg tablet 20 mg PO DAILY cetirizine 5 mg tablet 5 mg PO DAILY ferrous sulfate 325 mg (65 mg iron) tablet 325 mg PO DAILY hydrocodone-acetaminophen 5-325 mg tablet 1 tab PO Q8H PRN (Reason: Moderate Pain (Scale Score 5-6)) Yupelri 175 mcg/3 mL solution for nebulization 175 mcg inhalation DAILY Qty: 90 4RF acetaminophen [Mapap Arthritis Pain] 650 mg Tablet Extended Release 650 mg PO Q6H PRN (Reason: pain) bisacodyl 10 mg Suppository 10 mg TX DAILY PRN (Reason: Constipation) Enema Disposable 19-7 gram/118 mL Enema 118 ml TX PRN PRN (Reason: Constipation) sucralfate 1 gram tablet 1 g PO BID venlafaxine 150 mg Capsule,Extended Release 24hr 150 mg PO DAILY lorazepam 0.5 mg Tablet 0.5 mg PO DAILY PRN (Reason: Anxiety) mirtazapine 15 mg tablet 30 mg PO DAILY PRN (Reason: Constipation) magnesium L-lactate 84 mg Tablet Extended Release 84 mg PO DAILY montelukast 10 mg tablet 10 mg PO BEDTIME benzonatate 100 mg Capsule 100 mg PO TID PRN (Reason: Cough) Qty: 90 0RF ipratropium bromide 0.02 % Solution 2.5 ml INHALATION QID albuterol sulfate 90 mcg/actuation Hfa Aerosol Inhaler 2 puff INHALATION Q6H PRN (Reason: Shortness Of Breath Or Wheezing) amoxicillin-pot clavulanate 875-125 mg tablet 1 tab PO BID sennosides 8.6 mg Tablet 8.6 mg PO DAILY Milk of Magnesia 400 mg/5 mL Suspension 15 ml PO DAILY PRN (Reason: Constipation) metformin 1,000 mg Tablet 1,000 mg PO BIDWMEAL gabapentin 300 mg capsule 300 mg PO TID naloxone 4 mg/actuation spray,non-aerosol 1 spray INTRANASAL Q1-2M PRN (Reason: Opioid Overdose) omeprazole 40 mg Capsule,Delayed Release(Dr/Ec) 40 mg PO DAILY Breo Ellipta 100-25 mcg/dose Blister With Device 1 inh INHALATION DAILY Referrals: Alfredito Muro DO [Primary Care Provider] - Coding Level of Care Code ED Plumbing Designer for Na[facility] Pepper
[2023-05-13 12:44] LABS: Basophils # 0.1 10^3/uL (0.0-0.1); Basophils % 0.6 %; Eosinophils # 0.2 10^3/uL (0.0-0.8); Eosinophils % 2.4 %; Lymphocytes # 1.9 10^3/uL (0.8-4.8); Lymphocytes % 21.9 %; Mean Corpuscular HGB Conc 28.7 g/dL (30-55); Mean Corpuscular Hemoglobin 23.3 pg (27-33); Mean Corpuscular Volume 81.4 fl (82-101); Mean Platelet Volume 8.8 fL (7.4-10.4); Monocytes # 0.9 10^3/uL (0.2-0.9); Monocytes % 10.6 %; Neutrophils # 5.43 10^3/uL (1.8-7.7); Neutrophils % 62.9 %; Nucleated Red Blood Cells % 0 %; Platelet Count 356 10^3/cmm (157-399); Red Blood Count 4.67 10^6/uL (3.85-5.65); Red Cell Distribution Width 17.4 % (12.1-15.1); White Blood Count 8.64 10^3/uL (3.29-11.43)
[2023-05-13 13:04] LABS: Alanine Aminotransferase 9 U/L (0-41); Albumin Level 3.1 g/dL (3.5-5.2); Alkaline Phosphatase 88 U/L (40-130); Aspartate Amino Transferase 12 U/L (0-40); Blood Urea Nitrogen 40 mg/dL (8-23); Calcium 8.8 mg/dL (8.5-10.5); Carbon Dioxide 38 mmol/L (22-29); Chloride 95 mmol/L (98-107); Globulin 4.3 g/dL (1.3-4.6); Glomerular Filtration Rate 35.6 mL/min (90-130); Glucose 252 mg/dL (65-115); Osmolality Calculated 306 mOsm/kg (285-295); Sodium 139 mmol/L (136-145); Total Bilirubin 0.2 mg/dL (0.15-1.2); Total Protein 7.4 g/dL (6.6-8.7)
--- NOTE | 2023-05-13 14:00 | CT_ITS ---
WS: [id number] CT CHEST TECHNIQUE: Contrast enhanced CT of the chest with coronal and sagittal reformatted images. CLINICAL INFORMATION: hypoxia, abnormal cxr, influ a/b positive COMPARISON: CT chest 03/28/2023 DLP: 602.[address] scans at [facility] use at least one of these dose optimization techniques: automated e xposure control; mA and/or kV adjustment per patient size (includes targeted exams where dose is matc hed to clinical indication); or iterative reconstruction. FINDINGS: Advanced chronic emphysematous changes similar to previous. Bronchiectasis with interstitial thickeni ng and pulmonary fibrosis in the lung bases similar to previous. Suspected areas of subpleural honeyc ombing. Subsegmental atelectasis in both lower lobes with trace pleural fluid. No focal consolidation . Enlarged anterior mediastinal, peribronchial and RIGHT greater than LEFT hilar lymph nodes similar to previous may be reactive. Aortic calcification. Coronary calcification. Normal thyroid gland. No axillary lymphadenopathy. Norm al GE junction. Hepatomegaly diffuse fatty infiltration. Portal vein splenic vein are patent. Cholecy stectomy clips. Adrenal glands are normal. Partially visualized RIGHT hepatic cyst. Fatty atrophy of the pancreas. Hypertrophic changes thoracic spine. IMPRESSION: 1. Advanced chronic emphysematous changes with subsegmental atelectasis and trace pleural fluid in t he lung bases. 2. Evidence of interstitial lung disease is similar to previous. 3. No focal pneumonia. 4. Enlarged intermediastinal, peribronchial, and hilar lymph nodes similar to 04/10 nonspecific but m ay be reactive. 5. Prior cholecystectomy. 6. Hepatomegaly diffuse fatty infiltration.
[2023-05-13] MEDS: sodium chloride 0.9% 1,000 ML 999 ML IV (14:20)
[2023-05-13] MEDS: iohexol 350 mg/mL 500 mL Btl (per mL) IV (14:24)
--- NOTE | 2023-05-13 15:26 | P.HP_ITS ---
Providers/Chief Complaint Primary Care Provider: Alfredito Muro DO Chief Complaint: sob History of Present Illness Marlo Gleason is a 68 year old male with past medical history of chronic hypoxic respiratory failure secondary to COPD, recurrent pneumonia, history of MRSA, recurrent ICU admission, type 2 diabetes mellitus, CAD, CKD who apparently was discharged from [facility] today where he was admitted for 2 days for management of hypoxic respiratory failure secondary to influenza A and B was brought into the ER via EMS today because he felt short of breath when he reached home. When EMS found him he was found to have saturations down to mid 80s on 5 L of oxygen supplementation hence he was brought to the ER. In the ER patient was saturating 93% after getting nebulization on 5 L but desaturated on minimal ambulation to low 80s hence hospitalist service was consulted. When patient seen in the ER he is awake and alert. States he has been feeling out of breath more than usual and oxygen requirements higher than usual for last 3 to 4 days. He was discharged back to the detention from outside hospital though he was not feeling as well as he should be hence he was worried so he presented to the ER today. Denies of having any nausea vomiting, headache, chest pain, diarrhea, dysuria, hemoptysis. Denies any sick contacts. Complaining of mild runny nose a week prior to the current symptoms. Review of Systems General: Reports: 10 or more systems reviewed and unremarkable except in HPI and below Const: Denies: fever(s), chills, body aches, change in appetite, change in weight, malaise, night sweats, diaphoresis, change in sleep pattern, daytime sleepiness or snoring Eyes: Denies: change in vision, blurry vision, photophobia, eye discomfort or eye discharge ENMT: Denies: throat pain, enlarged tonsils, hoarseness, mouth pain, oral sores, dry mouth, tinnitus, nasal congestion or post nasal drip Card: Denies: chest pain, palpitations, irregular heart rhythm, edema, swelling of feet/ankles, lightheadedness, syncope, pre-syncope, dyspnea on exertion, orthopnea, leg pain with exertion or acrocyanosis Resp: Denies: dyspnea, productive cough, non-productive cough, wheezing, stridor, pain on inspiration, change in phlegm color, hemoptysis or chest congestion GI: Denies: abdominal pain, nausea, vomiting, hematemesis, coffee ground emesis, dysphagia, heartburn, diarrhea, constipation, bloating, GI cramping, change in bowel habits, pain on defecation, hematochezia or melena : Denies: flank pain, difficulty urinating, dysuria, urinary frequency, urinary urgency, urinary hesitancy, urinary dribbling, difficulty starting urination, change in urine stream, nocturia or hematuria Musc: Denies: neck pain, back pain, extremity pain, joint pain, joint swelling, joint redness, joint stiffness or limited range of motion Neuro: Denies: headache(s), numbness in extremities, weakness in extremities, sensory changes, lack of coordination, difficulty walking, frequent falls, dizziness, vertigo, confusion, Slurred speech present, difficulty communicating thoughts or seizure-like activity Psych: Denies: anxiety, depression, mood swings, panic attacks, hopelessness or irritability Endo: Denies: polyuria, polydipsia, tired all the time, cold intolerance, excessive sweating, flushing or heat intolerance Gabe/Lymph: Denies: easy bruising or easy bleeding All/Imm: Denies: tongue swelling, facial swelling or acute wheezing Medications/Allergies Home Medications Medication Instructions Recorded Confirmed Last Taken Type albuterol sulfate 2.5 mg/3 mL 2.5 mg inhalation Q4H PRN 01/21/21 05/13/23 05/13/23 History (0.083 %) solution for nebulization shortness of breath aspirin 81 mg tablet,delayed 81 mg PO DAILY 01/21/21 05/13/23 Unknown History release (Adult Low Dose Aspirin) atorvastatin 40 mg tablet 40 mg PO BEDTIME 01/21/21 05/13/23 Unknown History buspirone 10 mg tablet 10 mg PO TID 01/21/21 05/13/23 Unknown History cetirizine 5 mg tablet 5 mg PO DAILY 01/21/21 05/13/23 Unknown History citalopram 10 mg tablet 20 mg PO DAILY 01/21/21 05/13/23 Unknown History ferrous sulfate 325 mg (65 mg 325 mg PO DAILY 01/21/21 05/13/23 Unknown History iron) tablet hydrocodone 5 mg-acetaminophen 325 1 tab PO Q8H PRN Moderate Pain 01/21/21 05/13/23 Unknown History mg tablet (Scale Score 5-6) metoprolol tartrate 25 mg tablet 25 mg PO BID 01/21/21 05/13/23 Unknown History tamsulosin 0.4 mg capsule 0.4 mg PO BEDTIME 01/21/21 05/13/23 Unknown History acetaminophen 650 mg 650 mg PO Q6H PRN pain 05/08/21 05/13/23 Unknown History tablet,extended release (Mapap Arthritis Pain) bisacodyl 10 mg rectal suppository 10 mg MI DAILY PRN Constipation 05/08/21 05/13/23 Unknown History sodium phosphates 19 gram-7 118 ml MI PRN PRN Constipation 05/08/21 05/13/23 Unknown History gram/118 mL enema (Enema Disposable) montelukast 10 mg tablet 10 mg PO BEDTIME 04/04/22 05/13/23 Unknown History benzonatate 100 mg capsule 100 mg PO TID PRN Cough #90 caps 04/09/22 05/13/23 Unknown Rx ipratropium bromide 0.02 % 2.5 ml inhalation QID 02/19/23 05/13/23 Unknown History solution for inhalation lorazepam 0.5 mg tablet 0.5 mg PO DAILY PRN Anxiety 03/26/23 05/13/23 Unknown History magnesium L-lactate 84 mg 84 mg PO DAILY 03/26/23 05/13/23 Unknown History tablet,extended release mirtazapine 15 mg tablet 30 mg PO DAILY PRN Constipation 03/26/23 05/13/23 Unknown History sucralfate 1 gram tablet 1 g PO BID 03/26/23 05/13/23 Unknown History venlafaxine 150 mg 150 mg PO DAILY 03/26/23 05/13/23 Unknown History capsule,extended release 24 hr revefenacin 175 mcg/3 mL solution 175 mcg (3 mL) inhalation DAILY 05/02/23 05/13/23 Unknown Rx for nebulization (Aidee) #90 mL albuterol sulfate 90 mcg/actuation 2 puff inhalation Q6H PRN 05/13/23 05/13/23 Unknown History aerosol inhaler Shortness Of Breath Or Wheezing amoxicillin 875 mg-potassium 1 tab PO BID 05/13/23 05/13/23 Unknown History clavulanate 125 mg tablet fluticasone furoate 100 1 inh inhalation DAILY 05/13/23 05/13/23 Unknown History mcg-vilanterol 25 mcg/dose inhalation powder (Breo Ellipta) gabapentin 300 mg capsule 300 mg PO TID 05/13/23 05/13/23 Unknown History magnesium hydroxide 400 mg/5 mL 15 ml PO DAILY PRN Constipation 05/13/23 05/13/23 Unknown History oral suspension (Milk of Magnesia) metformin 1,000 mg tablet 1,000 mg PO BIDWMEAL 05/13/23 05/13/23 Unknown History naloxone 4 mg/actuation nasal spray 1 spray intranasal Q1-2M PRN 05/13/23 05/13/23 Unknown History Opioid Overdose omeprazole 40 mg capsule,delayed 40 mg PO DAILY 05/13/23 05/13/23 Unknown History release sennosides 8.6 mg tablet 8.6 mg PO DAILY 05/13/23 05/13/23 Unknown History Allergies Allergy/AdvReac Type Severity Reaction Status Date / Time No Known Allergies Allergy Verified 05/13/23 13:26 PFSH Acute PFSH: Medical History Anxiety disorder CAD (coronary artery disease) Centrilobular emphysema CKD (chronic kidney disease) COPD (chronic obstructive pulmonary disease) COVID-19 COVID-19 vaccine dose not administered Diabetes mellitus GERD (gastroesophageal reflux disease) Gout Hypertension Mediastinal adenopathy On home oxygen therapy Usually on 2 L by nasal cannula Pneumonia Positive DENY (antinuclear antibody) Prostatic hypertrophy PVD (peripheral vascular disease) Skin cancer Specific type unknown Tobacco use Surgical History History of cholecystectomy History of coronary artery stent placement X2 History of skin surgery Left neck for skin cancer Presence of coronary angioplasty implant and graft Family History Mother Cancer Father CAD (coronary artery disease) Social History Smoking and tobacco status: current some day smoker cigarettes Years cigarettes smoked: 60 Quit status (tobacco): not considering quitting Second hand smoke exposure: Yes Alcohol intake: former Substance/Drug Use: never Caregiver/support person: Yes Lives independently: No Housing: [facility] Marital status: / service: No Current occupational status: disabled Pets and animals: Yes Do you think of yourself as: Straight/Heterosexual Current gender identity: Male Vitals/I&O/Wt Last Vital Signs Temp 98.3 F 05/13/23 12:10 Pulse 83 05/13/23 12:10 Resp 26 H 05/13/23 12:10 BP 136/72 05/13/23 12:10 Pulse Ox 95 05/13/23 12:10 O2 Del Method Nasal Cannula 05/13/23 12:10 O2 Flow Rate 5 05/13/23 12:10 Weight last 48 hrs Weight 90.718 kg Physical Exam Narrative: General: No acute distress, AO x3, NC oxygen supplementation HEENT: PERRLA, pupils bilaterally equal and reactive Chest:Bronchial breath sounds b/l ,decreased air entry, equal good air entry bilaterally, no more fine basal crackles CVS: S1-S2 regular, no murmurs, no tachycardia, no gallops, no rubs Abdomen: Soft, nontender, no organomegaly, bowel sounds present, morbidly obese Neuro: No focal deficits, no facial deformity, AO x3, power 5/5 in all limbs Data 05/13/23 12:32 05/13/23 12:32 A&P Assessment and plan (1) Acute on chronic respiratory failure with hypoxemia: (2) COPD (chronic obstructive pulmonary disease): Qualifiers: COPD type: emphysema Emphysema type: centrilobular Qualified Code(s): J43.2 - Centrilobular emphysema (3) Centrilobular emphysema: (4) CKD (chronic kidney disease): (5) Type 2 diabetes mellitus: (6) Influenza: Plan 68-year-old man with past medical history of COPD on baseline oxygen supplementation presented to the ER after recent hospitalization at outside hospital for worsening hypoxia and shortness of breath. Acute on chronic hypoxic respiratory failure: Requiring higher oxygen supplementation up to 4 to 5 L. [address] ABG. Appreciate CT chest with contrast. No pulmonary embolism. No consolidation as pneumonia. Most likely COPD exacerbation in setting of a possible influenza a and B have tested positive at outside hospital but no confirmatory tests available so far. Check procalcitonin, sputum culture, urine Legionella, bacterial antigen, respiratory viral panel, blood cultures. Oxygen supplementation keeping saturation over 90%. Wean accordingly. DuoNebs every 6 hour, budesonide twice daily. Solu-Medrol 60 mg every 6 hourly. Will wean rapidly. For now empirically start patient on vancomycin and meropenem. Bacterial pneumonia less likely. Will rapidly discontinue antibiotics if patient remains hemodynamically stable and afebrile for next 24 hours. Type 2 diabetes mellitus: Check A1c. Insulin sliding scale and high-dose protocol. Will monitor the insulin requirement in next 24 hours as patient is on high-dose steroids. Continue other chronic medications. CKD: Creatinine at baseline. Medical reconciliation done for nephrotoxic drugs. Patient got contrast for CT in ER today. We will continue to monitor. Start on gentle IV hydration with normal saline at 50 cc/h. CODE STATUS: Discussed in detail with the patient. Full code. He would be okay with chest compressions or intubation if needed. Cardiac carb consistent diet. Protonix for PUD prophylaxis Heparin 5000 every 12 hourly for DVT prophylaxis. Attestations Medical Necessity Statement*: Admission for more than 2 midnights for management of acute on chronic hypoxic respiratory failure in setting of COPD exacerbation from influenza A and B infection Diagnoses Acute on chronic respiratory failure with hypoxemia J96.21 COPD (chronic obstructive pulmonary disease) J43.2 COPD type: emphysema Emphysema type: centrilobular Centrilobular emphysema J43.2 CKD (chronic kidney disease) N18.9 Type 2 diabetes mellitus E11.9 Influenza J11.1
[2023-05-13] MEDS: piperacillin-tazobactam 3.375 GM in sodium chloride 0.9% (plus) 50 ML IV ×2 (15:42→22:29)
[2023-05-13] MEDS: methylPREDNISolone sod succ 125 MG in water for injection-sterile 2 ML 24 MG IVP (15:43)
[2023-05-13 15:55] LABS: Procalcitonin 0.34 ng/mL (0-0.5); Thyroid Stimulating Hormone 1.23 uIU/mL (0.27-4.20)
[2023-05-13 16:00] LABS: Add Urine Microscopic? NO; Charge for UA Resulting for Rev
[2023-05-13] MEDS: vancomycin 1,000 MG in sodium chloride 0.9% 250 ML 250 MG IV ×2 (16:10→18:20)
[2023-05-13 16:15] LABS: Bilirubin Urine Neg (Negative); Blood Urine Neg (Negative); Glucose Urine UA 1+ (Normal); Ketones Urine Negative (Negative); Leukocyte Esterase Urine Negative (Negative); Nitrate Urine Negative (Negative); Protein Urine Neg (Negative); Specific Gravity, Urine 1.005 (1.005-1.030); Urine Appearance Clear (CLEAR); Urine Color Yellow (Yellow); Urobilinogen Urine Norm (Negative); pH Urine 5 (5-7)
[2023-05-13 17:51] LABS: ABG PH Result 7.38 (7.35-7.45); Alveolar-Arterial Oxygen Gradi 16.4 mmHg (5-10); Arterial Blood Gas Hematocrit 35.1 % (42-52); Blood Gas Operator Identificat glc; Blood Gas Sample Site Brachial, left; Blood Gas Sample Type Arterial; Carboxyhemoglobin 1.4 %THgb (0.4-20.1); HGB O2 Sat 89.3 % (95-100); Ionized Calcium Level - ABG 1.2 mmol/L (1.1-1.4); Methemoglobin 0.2 % (0.4-1.5); Oxygen Device NC; Oxygen Saturation ABG 90.7; PO2 ABG 57.1 mmHg (80.0-100.0); Potassium Level - ABG 4.8 mmol/L (3.5-5.0); Total Hemoglobin 11.5 g/dL (14-18)
[2023-05-13 17:52] LABS: ABG PCO2 60.9 mmHg (35-45)
[2023-05-13 17:56] LABS: Adenovirus Not Detected (NOT DETECT); Chlamydia Pneumoniae Not Detected (NOT DETECT); Coronavirus 229E,HKU1,NL63,OC4 Not Detected (NOT DETECT); Human Metapneumovirus Not Detected (NOT DETECT); Human Rhinovirus/Enterovirus Not Detected (NOT DETECT); Influenza A Not Detected (NOT DETECT); Influenza A H1 Not Detected (NOT DETECT); Influenza A H1-2009 Not Detected (NOT DETECT); Influenza A H3 Not Detected (NOT DETECT); Influenza B Not Detected (NOT DETECT); Mycoplasma Pneumoniae Not Detected (NOT DETECT); Parainfluenza Virus Type 1 Not Detected (NOT DETECT); Parainfluenza Virus Type 2 Not Detected (NOT DETECT); Parainfluenza Virus Type 3 Not Detected (NOT DETECT); Parainfluenza Virus Type 4 Not Detected (NOT DETECT); Respiratory Syncytial Virus A Not Detected (NOT DETECT); Respiratory Syncytial Virus B Not Detected (NOT DETECT); SARS-COV-2 Not Detected (NOT DETECT)
[2023-05-13] MEDS: enoxaparin 40 mg/0.4 mL Syringe SUBCUT (18:17)
[2023-05-13] MEDS: metoprolol tartrate 25 mg Tablet PO (18:19)
[2023-05-13] MEDS: sucralfate 1 gm Tablet PO (18:19)
[2023-05-13] MEDS: sodium chloride 0.9% 1,000 ML 50 ML IV (18:20)
[2023-05-13] MEDS: insulin lispro 100 unit/1 mL SUBCUT ×2 (18:47→21:35)
[2023-05-13 18:55] LABS: Glucose Point of Care 146 mg/dL (70-110)
[2023-05-13] MEDS: ipratropium-albuterol 3 mL Neb INHALATION (19:50)
[2023-05-13] MEDS: budesonide 0.5 mg/2 mL Neb INHALATION (19:50)
[2023-05-13 19:51] VITALS: PULSE 87; RESP 22; O2SAT 92
[2023-05-13 19:53] VITALS: PULSE 89; RESP 22; O2SAT 92
[2023-05-13 20:00] VITALS: BP 136/78; PULSE 93; RESP 17; TEMP 36.7; O2SAT 93
[2023-05-13] MEDS: methylPREDNISolone sod succ 40 MG in water for injection-sterile 1 ML 12 MG IVP (20:53)
[2023-05-13] MEDS: gabapentin 300 mg Capsule PO (20:54)
[2023-05-13] MEDS: atorvastatin 40 mg Tablet PO (20:54)
[2023-05-13] MEDS: tamsulosin 0.4 mg Capsule PO (20:54)
[2023-05-13] MEDS: BuSPIRONE 10 mg Tablet PO (20:54)
[2023-05-13 20:55] LABS: Glucose Point of Care 328 mg/dL (70-110)
[2023-05-13] MEDS: mirtazapine 15 mg Tablet 30 MG PO (21:34)
[2023-05-13] MEDS: hyDROXYzine 25 mg Capsule PO (22:51)
[2023-05-13 23:09] LABS: C Reactive Protein 77.8 mg/L (0.0-4.9)
[2023-05-13 23:55] VITALS: BP 117/66; PULSE 73; RESP 18; TEMP 36.6; O2SAT 94
[2023-05-14] VITALS (16 sets, daily range): BP systolic 127–167; BP diastolic 69–83; PULSE 59–84; RESP 16–24; TEMP 36.5–36.6; O2SAT 88–98
[2023-05-14] MEDS: ipratropium-albuterol 3 mL Neb INHALATION ×4 (01:21→20:15)
[2023-05-14] MEDS: methylPREDNISolone sod succ 40 MG in water for injection-sterile 1 ML 12 MG IVP ×3 (01:36→17:50)
[2023-05-14 05:01] LABS: Basophils % 0.2 %; Hematocrit 36.2 % (37-53); Lymphocytes # 0.7 10^3/uL (0.8-4.8); Lymphocytes % 11.4 %; Mean Corpuscular HGB Conc 28.7 g/dL (30-55); Mean Corpuscular Hemoglobin 23.2 pg (27-33); Mean Corpuscular Volume 80.6 fl (82-101); Mean Platelet Volume 9.1 fL (7.4-10.4); Monocytes # 0.1 10^3/uL (0.2-0.9); Monocytes % 1.3 %; Neutrophils # 5.09 10^3/uL (1.8-7.7); Neutrophils % 85.1 %; Nucleated Red Blood Cells % 0 %; Platelet Count 357 10^3/cmm (157-399); Red Blood Count 4.49 10^6/uL (3.85-5.65); Red Cell Distribution Width 17.3 % (12.1-15.1); White Blood Count 5.98 10^3/uL (3.29-11.43)
[2023-05-14 05:24] LABS: Chol HDL Ratio 3.66 mg/dL (1.0-5.00); Cholesterol 117 mg/dL (0-200); Estmated Average Glucose 206; HDL Cholesterol 32 mg/dL (60-100); Hemoglobin A1C 8.8 % (4.0-6.0); LDL Cholesterol Calculated 61 mg/dL (50-129); LDL HDL Ratio 1.91 RATIO (0.00-3.22); Triglycerides 121 mg/dL (0-150)
[2023-05-14 05:26] LABS: Alanine Aminotransferase 10 U/L (0-41); Albumin Level 2.8 g/dL (3.5-5.2); Alkaline Phosphatase 80 U/L (40-130); Anion Gap 9.9 (5-19); Aspartate Amino Transferase 11 U/L (0-40); Blood Urea Nitrogen 33 mg/dL (8-23); Calcium 8.4 mg/dL (8.5-10.5); Carbon Dioxide 36 mmol/L (22-29); Chloride 98 mmol/L (98-107); Globulin 4.2 g/dL (1.3-4.6); Glomerular Filtration Rate 40.5 mL/min (90-130); Glucose 299 mg/dL (65-115); Magnesium 1.9 mg/dL (1.7-2.3); Osmolality Calculated 304 mOsm/kg (285-295); Phosphorus 1.9 mg/dL (2.5-4.5); Potassium 5.9 mmol/L (3.5-5.1); Sodium 138 mmol/L (136-145); Total Bilirubin 0.2 mg/dL (0.15-1.2)
[2023-05-14 05:38] LABS: Folate Level 10.5 ng/mL (4.5-32.2)
[2023-05-14] MEDS: piperacillin-tazobactam 3.375 GM in sodium chloride 0.9% (plus) 50 ML IV (06:20)
[2023-05-14 06:24] LABS: Glucose Point of Care 297 mg/dL (70-110)
[2023-05-14] MEDS: insulin lispro 100 unit/1 mL SUBCUT ×5 (08:31→23:33)
[2023-05-14] MEDS: citalopram 20 mg Tablet PO (08:32)
[2023-05-14] MEDS: gabapentin 300 mg Capsule PO ×3 (08:32→20:14)
[2023-05-14] MEDS: venlafaxine ER (24HR) 150 mg Capsule PO (08:32)
[2023-05-14] MEDS: aspirin 81 mg EC Tablet PO (08:32)
[2023-05-14] MEDS: ferrous sulfate EC 325 mg Tablet PO (08:32)
[2023-05-14] MEDS: pantoprazole DR 40 mg Tablet PO (08:33)
[2023-05-14] MEDS: BuSPIRONE 10 mg Tablet PO ×3 (08:33→20:14)
[2023-05-14] MEDS: sucralfate 1 gm Tablet PO ×2 (08:33→17:47)
[2023-05-14] MEDS: metoprolol tartrate 25 mg Tablet PO ×2 (08:34→17:47)
[2023-05-14] MEDS: budesonide 0.5 mg/2 mL Neb INHALATION ×2 (09:00→20:15)
[2023-05-14 11:05] LABS: Glucose Point of Care 355 mg/dL (70-110)
[2023-05-14] MEDS: insulin regular-human 10 UNIT in SYRINGE 1 EACH IVP (11:45)
[2023-05-14] MEDS: dextrose 50% syringe 50 mL IVP (11:46)
[2023-05-14] MEDS: sodium chloride 0.9% 1,000 ML 50 ML IV (11:49)
[2023-05-14] MEDS: enoxaparin 40 mg/0.4 mL Syringe SUBCUT (14:55)
--- NOTE | 2023-05-14 15:51 | PM.PN ---
Subjective Subjective: No acute events overnight. Patient states he feels the same way. Denies any nausea, vomiting, headache. Saturating more than 88% on 3 L of oxygen supplementation. Denies any chest pain. Blood work appreciated for a stable CBC, CMP showing potassium of 5.9 up from 5 yesterday, creatinine of 1.7 down from 1.9 yesterday, BUN down to 33 from 40 yesterday, A1c of 8.8 with elevated blood sugars, negative procalcitonin, normal TSH, negative respiratory viral panel Vitals/I&O/Wt Last Vital Signs Temp 97.9 F 05/14/23 11:37 Pulse 73 05/14/23 14:34 Resp 24 H 05/14/23 14:34 BP 130/73 05/14/23 11:37 Pulse Ox 88 L 05/14/23 14:34 O2 Del Method Nasal Cannula 05/14/23 14:34 O2 Flow Rate 3 05/14/23 14:34 05/14/23 05/14/23 05/14/23 06:59 14:59 22:59 Intake Total 51 / 1604 2491.1 / 2491.1 Output Total 350 / 350 Balance 51 / 1604 2141.1 / 2141.1 Weight last 48 hrs Weight 90.718 kg Physical Exam Narrative: General: No acute distress, AO x3, NC oxygen supplementation HEENT: PERRLA, pupils bilaterally equal and reactive Chest:Bronchial breath sounds b/l ,decreased air entry, equal good air entry bilaterally, no more fine basal crackles CVS: S1-S2 regular, no murmurs, no tachycardia, no gallops, no rubs Abdomen: Soft, nontender, no organomegaly, bowel sounds present, morbidly obese Neuro: No focal deficits, no facial deformity, AO x3, power 5/5 in all limbs Data 05/14/23 04:50 05/14/23 04:50 Micro: Microbiology 05/13/23 Unknown MRSA Culture - Final Nose A&P Assessment and plan (1) Acute on chronic respiratory failure with hypoxemia: (2) COPD (chronic obstructive pulmonary disease): Qualifiers: COPD type: emphysema Emphysema type: centrilobular Qualified Code(s): J43.2 - Centrilobular emphysema (3) Centrilobular emphysema: (4) CKD (chronic kidney disease): (5) Type 2 diabetes mellitus: (6) Influenza: (7) MRSA carrier: Plan 68-year-old man with past medical history of COPD on baseline oxygen supplementation presented to the ER after recent hospitalization at outside hospital for worsening hypoxia and shortness of breath. Acute on chronic hypoxic respiratory failure: Requiring higher oxygen supplementation up to 4 to 5 L. Most likely in setting of viral bronchitis Appreciate CT chest with contrast. No pulmonary embolism. No consolidation as pneumonia. Procalcitonin negative. Sputum culture pending. Bacterial antigen, urine Legionella pending. Respiratory viral panel negative. MRSA positive. Oxygen supplementation keeping saturation over 90%. Wean accordingly. DuoNebs every 6 hour, budesonide twice daily. Solu-Medrol 60 mg every 12 hourly. Continue to wean according to the clinical picture. Aggressive pulmonary toilet. Patient has no leukocytosis, has remained afebrile and hemodynamically stable. No consolidation on CT chest. Bacterial pneumonia less likely. Stop antibiotics for now and continue to monitor. BiPAP as needed. Type 2 diabetes mellitus: Appreciate A1c. Blood sugars elevated in setting of steroids. Insulin sliding scale high-dose protocol every 4 hours Continue other chronic medications. CKD: Creatinine at baseline. Medical reconciliation done for nephrotoxic drugs. Patient got contrast for CT in ER today. We will continue to monitor. Patient eating well. Stop IV fluids. CODE STATUS: Discussed in detail with the patient. Full code. He would be okay with chest compressions or intubation if needed. Cardiac carb consistent diet. Protonix for PUD prophylaxis Heparin 5000 every 12 hourly for DVT prophylaxis. Attestations Medical Necessity Statement*: Requires further hospitalization for management of acute on chronic hypoxic respiratory failure in setting of COPD exacerbation Diagnoses Acute on chronic respiratory failure with hypoxemia J96.21 COPD (chronic obstructive pulmonary disease) J43.2 COPD type: emphysema Emphysema type: centrilobular Centrilobular emphysema J43.2 CKD (chronic kidney disease) N18.9 Type 2 diabetes mellitus E11.9 Influenza J11.1 MRSA carrier [id number]
[2023-05-14 16:59] LABS: Glucose Point of Care 223 mg/dL (70-110)
[2023-05-14 20:08] LABS: Glucose Point of Care 336 mg/dL (70-110)
[2023-05-14] MEDS: atorvastatin 40 mg Tablet PO (20:14)
[2023-05-14] MEDS: tamsulosin 0.4 mg Capsule PO (20:14)
[2023-05-14] MEDS: mirtazapine 15 mg Tablet 30 MG PO (21:27)
--- NOTE | 2023-05-14 23:23 | PC.NURSE ---
Patient is requesting ice cream at this time, current blood sugar is 349. Patient has been educated on his blood sugar being elevated and limiting sugar intake. Patient states I don't care. Patient continues to eat icecream.
[2023-05-14 23:25] LABS: Glucose Point of Care 349 mg/dL (70-110)
--- NOTE | 2023-05-14 23:41 | PC.NURSE ---
Patient was eductated extensively about limiting sugar intake due to elevated blood sugars. Patient was told we would not be bringing him anymore icecream. Patient was offered sugar free snacks and declined. Patient is still requesting more icecream and stated I'm stupid enough to still eat it. This nurse told patient we would not be bringing him any due to the risks.
[2023-05-15] VITALS (13 sets, daily range): BP systolic 131–173; BP diastolic 69–80; PULSE 55–75; RESP 15–20; TEMP 36.5–36.9; O2SAT 90–95
[2023-05-15] MEDS: ipratropium-albuterol 3 mL Neb INHALATION ×4 (02:09→20:59)
[2023-05-15 04:29] LABS: Glucose Point of Care 265 mg/dL (70-110)
[2023-05-15] MEDS: insulin lispro 100 unit/1 mL SUBCUT ×5 (04:32→20:08)
[2023-05-15 05:19] LABS: Basophils % 0.2 %; Lymphocytes # 1.5 10^3/uL (0.8-4.8); Lymphocytes % 8.9 %; Mean Corpuscular HGB Conc 28.6 g/dL (30-55); Mean Corpuscular Hemoglobin 23.5 pg (27-33); Mean Corpuscular Volume 82.2 fl (82-101); Mean Platelet Volume 8.9 fL (7.4-10.4); Monocytes # 1.3 10^3/uL (0.2-0.9); Neutrophils # 13.46 10^3/uL (1.8-7.7); Neutrophils % 80.7 %; Nucleated Red Blood Cells % 0 %; Platelet Count 374 10^3/cmm (157-399); Red Blood Count 4.38 10^6/uL (3.85-5.65); Red Cell Distribution Width 17.4 % (12.1-15.1); White Blood Count 16.68 10^3/uL (3.29-11.43)
[2023-05-15] MEDS: methylPREDNISolone sod succ 40 MG in water for injection-sterile 1 ML 12 MG IVP (05:24)
[2023-05-15 06:36] LABS: Alanine Aminotransferase 12 U/L (0-41); Albumin Level 2.7 g/dL (3.5-5.2); Alkaline Phosphatase 81 U/L (40-130); Anion Gap 10.3 (5-19); Aspartate Amino Transferase 13 U/L (0-40); Blood Urea Nitrogen 36 mg/dL (8-23); Calcium 8.8 mg/dL (8.5-10.5); Carbon Dioxide 36 mmol/L (22-29); Chloride 100 mmol/L (98-107); Creatinine Clr Calc Pharmacy 61.1348; Globulin 4.4 g/dL (1.3-4.6); Glomerular Filtration Rate 55.2 mL/min (90-130); Glucose 212 mg/dL (65-115); Osmolality Calculated 307 mOsm/kg (285-295); Potassium 5.3 mmol/L (3.5-5.1); Sodium 141 mmol/L (136-145); Total Bilirubin 0.2 mg/dL (0.15-1.2); Total Protein 7.1 g/dL (6.6-8.7)
[2023-05-15 07:37] LABS: Glucose Point of Care 210 mg/dL (70-110)
[2023-05-15] MEDS: budesonide 0.5 mg/2 mL Neb INHALATION ×2 (07:41→20:59)
[2023-05-15] MEDS: pantoprazole DR 40 mg Tablet PO (08:42)
[2023-05-15] MEDS: ferrous sulfate EC 325 mg Tablet PO (08:42)
[2023-05-15] MEDS: gabapentin 300 mg Capsule PO ×3 (08:43→20:08)
[2023-05-15] MEDS: metoprolol tartrate 25 mg Tablet PO ×2 (08:43→18:11)
[2023-05-15] MEDS: venlafaxine ER (24HR) 150 mg Capsule PO (08:43)
[2023-05-15] MEDS: sucralfate 1 gm Tablet PO ×2 (08:43→18:11)
[2023-05-15] MEDS: aspirin 81 mg EC Tablet PO (08:43)
[2023-05-15] MEDS: citalopram 20 mg Tablet PO (08:43)
[2023-05-15] MEDS: BuSPIRONE 10 mg Tablet PO ×3 (08:43→20:08)
[2023-05-15 11:28] LABS: Glucose Point of Care 216 mg/dL (70-110)
[2023-05-15] MEDS: levoFLOXacin 750 mg Tablet PO (13:29)
[2023-05-15] MEDS: enoxaparin 40 mg/0.4 mL Syringe SUBCUT (15:09)
[2023-05-15 15:18] LABS: Glucose Point of Care 278 mg/dL (70-110)
--- NOTE | 2023-05-15 16:01 | PM.PN ---
Subjective Subjective: No acute events overnight. Patient denies any nausea, vomiting, headache. Today morning on examination upset with one of the [employer]'s on the floor otherwise no new complaints. States breathing is stable. Because of being upset today morning on examination patient is hyperventilating a bit but denies any difficulty breathing saturating well on 3 L. Blood work appreciated for mild leukocytosis today, stable hemoglobin, CMP showing creatinine of 1.3 which is stable, potassium of 5.3 which is up from yesterday. Vitals/I&O/Wt Last Vital Signs Temp 98.4 F 05/15/23 12:00 Pulse 65 05/15/23 14:00 Resp 16 05/15/23 14:00 BP 131/69 05/15/23 12:00 Pulse Ox 92 05/15/23 14:00 O2 Del Method Nasal Cannula 05/15/23 14:00 O2 Flow Rate 3 05/15/23 14:00 05/15/23 05/15/23 05/15/23 06:59 14:59 22:59 Intake Total 1 / 2973.1 1840 / 1840 Output Total 1400 / 1750 1200 / 1200 Balance -1399 / 1223.1 640 / 640 Physical Exam Narrative: General: No acute distress, AO x3, NC oxygen supplementation HEENT: PERRLA, pupils bilaterally equal and reactive Chest:Bronchial breath sounds b/l ,decreased air entry, equal good air entry bilaterally, no more fine basal crackles CVS: S1-S2 regular, no murmurs, no tachycardia, no gallops, no rubs Abdomen: Soft, nontender, no organomegaly, bowel sounds present, morbidly obese Neuro: No focal deficits, no facial deformity, AO x3, power 5/5 in all limbs Data 05/15/23 05:11 05/15/23 06:07 Micro: Microbiology 05/13/23 Unknown MRSA Culture - Final Nose A&P Assessment and plan (1) Acute on chronic respiratory failure with hypoxemia: (2) COPD (chronic obstructive pulmonary disease): Qualifiers: COPD type: emphysema Emphysema type: centrilobular Qualified Code(s): J43.2 - Centrilobular emphysema (3) Centrilobular emphysema: (4) CKD (chronic kidney disease): (5) Type 2 diabetes mellitus: (6) Influenza: (7) MRSA carrier: Plan 68-year-old man with past medical history of COPD on baseline oxygen supplementation presented to the ER after recent hospitalization at outside hospital for worsening hypoxia and shortness of breath. Acute on chronic hypoxic respiratory failure: Requiring higher oxygen supplementation up to 4 to 5 L. Most likely in setting of viral bronchitis Appreciate CT chest with contrast. No pulmonary embolism. No consolidation as pneumonia. Procalcitonin negative. Sputum culture pending. Bacterial antigen, urine Legionella pending. Respiratory viral panel negative. MRSA positive. Oxygen supplementation keeping saturation over 90%. Wean accordingly. DuoNebs every 6 hour, budesonide twice daily. Wean further down to Solu-Medrol 60 mg daily. Continue to wean according to the clinical picture. Aggressive pulmonary toilet. Mild leukocytosis most likely in setting of steroids but has remained afebrile and hemodynamically stable. No consolidation on CT chest. Bacterial pneumonia less likely. Continue to hold off on IV antibiotics. Start on levothyroxine 750 mg oral daily for overall 5-day course. BiPAP as needed. Type 2 diabetes mellitus: Appreciate A1c. Blood sugars elevated in setting of steroids. Insulin sliding scale high-dose protocol every 4 hours Continue other chronic medications. CKD: Creatinine at baseline and stable. Medical reconciliation done for nephrotoxic drugs. Patient got contrast for CT in ER today. We will continue to monitor. Patient eating well. Stop IV fluids. CODE STATUS: Discussed in detail with the patient. Full code. He would be okay with chest compressions or intubation if needed. Cardiac carb consistent diet. Protonix for PUD prophylaxis Heparin 5000 every 12 hourly for DVT prophylaxis. Attestations Medical Necessity Statement*: Requires further hospitalization for management of hypoxic respiratory failure in setting of COPD exacerbation most likely from viral bronchitis Diagnoses Acute on chronic respiratory failure with hypoxemia J96.21 COPD (chronic obstructive pulmonary disease) J43.2 COPD type: emphysema Emphysema type: centrilobular Centrilobular emphysema J43.2 CKD (chronic kidney disease) N18.9 Type 2 diabetes mellitus E11.9 Influenza J11.1 MRSA carrier [id number]
[2023-05-15 17:02] LABS: Glucose Point of Care 154 mg/dL (70-110)
[2023-05-15] MEDS: insulin regular-human 10 UNIT in SYRINGE 1 EACH IVP (17:02)
[2023-05-15] MEDS: dextrose 50% syringe 50 mL IVP (17:03)
[2023-05-15 20:03] LABS: Glucose Point of Care 272 mg/dL (70-110)
[2023-05-15] MEDS: atorvastatin 40 mg Tablet PO (20:07)
[2023-05-15] MEDS: tamsulosin 0.4 mg Capsule PO (20:07)
[2023-05-15] MEDS: mirtazapine 15 mg Tablet 30 MG PO (21:34)
[2023-05-15 23:48] LABS: Glucose Point of Care 252 mg/dL (70-110)
[2023-05-16] VITALS (9 sets, daily range): BP systolic 133–148; BP diastolic 77–85; PULSE 62–80; RESP 16–18; TEMP 36.5–36.6; O2SAT 90–96
[2023-05-16] MEDS: insulin lispro 100 unit/1 mL SUBCUT ×4 (00:53→16:17)
[2023-05-16] MEDS: ipratropium-albuterol 3 mL Neb INHALATION ×3 (02:06→13:27)
[2023-05-16 04:36] LABS: Glucose Point of Care 215 mg/dL (70-110)
[2023-05-16 05:20] LABS: Basophils # 0.1 10^3/uL (0.0-0.1); Basophils % 0.4 %; Eosinophils # 0.2 10^3/uL (0.0-0.8); Eosinophils % 0.8 %; Hematocrit 42.5 % (37-53); Lymphocytes # 3.7 10^3/uL (0.8-4.8); Lymphocytes % 19.7 %; Mean Corpuscular HGB Conc 28.2 g/dL (30-55); Mean Corpuscular Volume 81.4 fl (82-101); Monocytes # 1.8 10^3/uL (0.2-0.9); Monocytes % 9.7 %; Neutrophils # 12.35 10^3/uL (1.8-7.7); Neutrophils % 65.6 %; Nucleated Red Blood Cells % 0.1 %; Platelet Count 466 10^3/cmm (157-399); Red Blood Count 5.22 10^6/uL (3.85-5.65); Red Cell Distribution Width 17.6 % (12.1-15.1); White Blood Count 18.85 10^3/uL (3.29-11.43)
[2023-05-16 05:39] LABS: Alanine Aminotransferase 15 U/L (0-41); Albumin Level 3.1 g/dL (3.5-5.2); Alkaline Phosphatase 88 U/L (40-130); Anion Gap 10.9 (5-19); Aspartate Amino Transferase 13 U/L (0-40); Blood Urea Nitrogen 37 mg/dL (8-23); Calcium 9.5 mg/dL (8.5-10.5); Carbon Dioxide 37 mmol/L (22-29); Chloride 97 mmol/L (98-107); Globulin 4.3 g/dL (1.3-4.6); Glomerular Filtration Rate 46.8 mL/min (90-130); Glucose 164 mg/dL (65-115); Osmolality Calculated 302 mOsm/kg (285-295); Potassium 4.9 mmol/L (3.5-5.1); Sodium 140 mmol/L (136-145); Total Bilirubin 0.2 mg/dL (0.15-1.2); Total Protein 7.4 g/dL (6.6-8.7)
[2023-05-16] MEDS: budesonide 0.5 mg/2 mL Neb INHALATION (07:37)
[2023-05-16] MEDS: methylPREDNISolone sod succ 40 MG in water for injection-sterile 1 ML 12 MG IVP (08:34)
[2023-05-16] MEDS: BuSPIRONE 10 mg Tablet PO ×2 (08:49→15:03)
[2023-05-16] MEDS: venlafaxine ER (24HR) 150 mg Capsule PO (08:49)
[2023-05-16] MEDS: levoFLOXacin 750 mg Tablet PO (08:49)
[2023-05-16] MEDS: gabapentin 300 mg Capsule PO ×2 (08:49→15:03)
[2023-05-16] MEDS: ferrous sulfate EC 325 mg Tablet PO (08:49)
[2023-05-16] MEDS: metoprolol tartrate 25 mg Tablet PO (08:49)
[2023-05-16] MEDS: citalopram 20 mg Tablet PO (08:49)
[2023-05-16] MEDS: aspirin 81 mg EC Tablet PO (08:49)
[2023-05-16] MEDS: pantoprazole DR 40 mg Tablet PO (08:49)
[2023-05-16] MEDS: sucralfate 1 gm Tablet PO (08:49)
--- NOTE | 2023-05-16 09:27 | PC.SOCIAL ---
IMM Update pg 2 of IMM updated and reviewed w/ patient. Copy provided and Copy dated, initialed and placed in chart.
[2023-05-16] MEDS: acetaminophen 325 mg Tablet 650 MG PO (10:07)
--- NOTE | 2023-05-16 11:15 | PM.DCS ---
Discharge Providers Date of Admission: 05/13/23 15:28 Date of Discharge: May 16, 2023 Attending Provider at Admission: Cali Chacon MD Attending Provider at Discharge: Phill Velez MD Primary Care Provider: Alfredito Muro DO Diagnoses at Discharge Discharge Diagnosis (1) Acute on chronic respiratory failure with hypoxemia: Status: Resolved (2) COPD (chronic obstructive pulmonary disease): Status: Inactive Qualifiers: COPD type: emphysema Emphysema type: centrilobular Qualified Code(s): J43.2 - Centrilobular emphysema (3) Centrilobular emphysema: Status: Inactive (4) CKD (chronic kidney disease): Status: Inactive (5) Type 2 diabetes mellitus: Status: Inactive (6) Influenza: Status: Resolved (7) MRSA carrier: Status: Inactive Reason for Visit Reason for Visit: sob Hospital Course Hospital Course Marlo Pike is a 68-year-old male with a past medical history significant for chronic hypoxic respiratory failure, COPD/emphysema, type 2 diabetes mellitus, coronary artery disease and severe anxiety who presented with shortness of breath following him just being released from another hospital for respiratory failure from influenza. Work-up revealed acute on chronic respiratory failure with hypoxemia secondary to acute COPD exacerbation. There is no infiltrate appreciated on imaging. He was treated with steroids, antibiotics, and breathing treatments. Symptomatology improved. His anxiety remains poorly controlled but patient declined further anxiolytics. Patient discharged back to facility in stable condition. Physical Exam Narrative: General: Patient is awake. Anxious. Verbose. Head: Normocephalic. Atraumatic. EOM intact. Neck: No JVD. Cardiovascular: Normal S1 and S2. No gallops. No murmurs. Lungs: Breath sounds are diminished bilateral bases, breath sounds are coarse, no wheezing, no crackles, no rhonchi. Tachypnea with talking. Skin: No jaundice. No rashes. Abdomen: Normal bowel sounds, abdomen soft and nontender. Extremities: No cyanosis or clubbing. Musculoskeletal: No swollen or erythematous joints. Neurological: Moves all 4 extremities. No myoclonus. Discharge Data Studies Completed and Pending Completed Studies During Hospitalization Category Date Time Status CT chest w con* [id number] Stat Cat Scan 05/13/23 14:00 Completed XR chest 1V portable [id number] Stat Exams 05/13/23 12:15 Completed Pending at discharge Category Date Time Status Bacterial Antigen Stat Lab 05/14/23 15:53 Ordered Legionella Antigen STAT Stat Lab 05/14/23 15:53 Ordered SARS Covid-2 Antigen Routine Lab 05/16/23 10:30 Received Sputum Culture and Gram Stain Stat Lab 05/13/23 17:05 Received Laboratory Results WBC 18.85 10^3/uL (3.29-11.43) H 05/16/23 05:05 RBC 5.22 10^6/uL (3.85-5.65) 05/16/23 05:05 Hgb 12.00 g/dL (11.27-16.99) 05/16/23 05:05 Hct 42.5 % (37-53) 05/16/23 05:05 MCV 81.4 fl (82-101) L 05/16/23 05:05 MCH 23.0 pg (27-33) L 05/16/23 05:05 MCHC 28.2 g/dL (30-55) L 05/16/23 05:05 RDW 17.6 % (12.1-15.1) H 05/16/23 05:05 Plt Count 466 10^3/cmm (157-399) H 05/16/23 05:05 MPV 9.0 fL (7.4-10.4) 05/16/23 05:05 Neut % (Auto) 65.6 % 05/16/23 05:05 Lymph % (Auto) 19.7 % 05/16/23 05:05 [place] % (Auto) 9.7 % 05/16/23 05:05 Eos % (Auto) 0.8 % 05/16/23 05:05 Baso % (Auto) 0.4 % 05/16/23 05:05 Neut # (Auto) 12.35 10^3/uL (1.8-7.7) H 05/16/23 05:05 Lymph # (Auto) 3.7 10^3/uL (0.8-4.8) 05/16/23 05:05 [place] # (Auto) 1.8 10^3/uL (0.2-0.9) H 05/16/23 05:05 Eos # (Auto) 0.2 10^3/uL (0.0-0.8) 05/16/23 05:05 Baso # (Auto) 0.1 10^3/uL (0.0-0.1) 05/16/23 05:05 Nucleated RBC % (auto) 0.1 % 05/16/23 05:05 Nucleated RBCs # 0.0 /100WBC 05/16/23 05:05 Specimen Type Arterial 05/13/23 17:39 Sample Site Brachial, left 05/13/23 17:39 ABG pH 7.38 (7.35-7.45) 05/13/23 17:39 ABG pCO2 60.9 mmHg (35-45) H* 05/13/23 17:39 ABG pO2 57.1 mmHg (80.0-100.0) L 05/13/23 17:39 ABG HCO3 36.0 mmol/L (22-26) H 05/13/23 17:39 ABG O2 Saturation 90.7 05/13/23 17:39 ABG Base Excess 9.0 mmol/L (-2.0-2.0) H 05/13/23 17:39 [place] Test N/a 05/13/23 17:39 A-a O2 Gradient 16.4 mmHg (5-10) H 05/13/23 17:39 Hematocrit 35.1 % (42-52) L 05/13/23 17:39 Hgb O2 Saturation 89.3 % (95-100) L 05/13/23 17:39 Carboxyhemoglobin 1.4 %THgb (0.4-20.1) 05/13/23 17:39 Methemoglobin 0.2 % (0.4-1.5) L 05/13/23 17:39 Total Hemoglobin 11.5 g/dL (14-18) L 05/13/23 17:39 Sodium 143.0 mmol/L (131-143) 05/13/23 17:39 Potassium 4.8 mmol/L (3.5-5.0) 05/13/23 17:39 Glucose 103.0 mg/dL (70-115) 05/13/23 17:39 Ionized Calcium 1.2 mmol/L (1.1-1.4) 05/13/23 17:39 O2 Delivery Device Nc 05/13/23 17:39 O2 Liters/Min 4.0 % 05/13/23 17:39 FiO2 36.0 % 05/13/23 17:39 Back Tender [place] ID glc 05/13/23 17:39 Sodium 140 mmol/L (136-145) 05/16/23 05:05 Potassium 4.9 mmol/L (3.5-5.1) 05/16/23 05:05 Chloride 97 mmol/L (98-107) L 05/16/23 05:05 Carbon Dioxide 37 mmol/L (22-29) H 05/16/23 05:05 Anion Gap 10.9 (5-19) 05/16/23 05:05 BUN 37 mg/dL (8-23) H 05/16/23 05:05 Creatinine 1.5 mg/dL (0.7-1.2) H 05/16/23 05:05 GFR Calculation 46.8 mL/min (90-130) L 05/16/23 05:05 Glucose 164 mg/dL (65-115) H 05/16/23 05:05 POC Glucose 215 mg/dL (70-110) H 05/16/23 03:26 Estimat Average Glucose 206 05/14/23 04:50 Hemoglobin A1c 8.8 % (4.0-6.0) H 05/14/23 04:50 Calculated Osmolality 302 mOsm/kg (285-295) H 05/16/23 05:05 Calcium 9.5 mg/dL (8.5-10.5) 05/16/23 05:05 Phosphorus 1.9 mg/dL (2.5-4.5) L 05/14/23 04:50 Magnesium 1.9 mg/dL (1.7-2.3) 05/14/23 04:50 Total Bilirubin 0.2 mg/dL (0.15-1.2) 05/16/23 05:05 AST 13 U/L (0-40) 05/16/23 05:05 ALT 15 U/L (0-41) 05/16/23 05:05 Alkaline Phosphatase 88 U/L (40-130) 05/16/23 05:05 C-Reactive Protein 77.8 mg/L (0.0-4.9) H 05/13/23 12:32 Total Protein 7.4 g/dL (6.6-8.7) 05/16/23 05:05 Albumin 3.1 g/dL (3.5-5.2) L 05/16/23 05:05 Globulin 4.3 g/dL (1.3-4.6) 05/16/23 05:05 Triglycerides 121 mg/dL (0-150) 05/14/23 04:50 Cholesterol 117 mg/dL (0-200) 05/14/23 04:50 LDL Cholesterol, Calc 61 mg/dL (50-129) 05/14/23 04:50 HDL Cholesterol 32 mg/dL (60-100) L 05/14/23 04:50 LDL/HDL Ratio 1.91 RATIO (0.00-3.22) 05/14/23 04:50 Cholesterol/HDL Ratio 3.66 mg/dL (1.0-5.00) 05/14/23 04:50 Folate 10.5 ng/mL (4.5-32.2) 05/14/23 04:50 Procalcitonin 0.34 ng/mL (0-0.5) 05/13/23 12:32 TSH 1.23 uIU/mL (0.27-4.20) 05/13/23 12:32 Urine Color Yellow (Yellow) 05/13/23 15:55 Urine Appearance Clear (CLEAR) 05/13/23 15:55 Urine pH 5 (5-7) 05/13/23 15:55 Ur Specific [place] 1.005 (1.005-1.030) 05/13/23 15:55 Urine Protein Neg (Negative) 05/13/23 15:55 Urine Glucose (UA) 1+ (Normal) H 05/13/23 15:55 Urine Ketones Negative (Negative) 05/13/23 15:55 Urine Blood Neg (Negative) 05/13/23 15:55 Urine Nitrate Negative (Negative) 05/13/23 15:55 Urine Bilirubin Neg (Negative) 05/13/23 15:55 Urine Urobilinogen Norm mg/dL (Negative) 05/13/23 15:55 Ur Leukocyte Esterase Negative (Negative) 05/13/23 15:55 Nasal Influ A H1 2008 PCR Not detected (NOT DETECT) 05/13/23 15:35 Adenovirus (PCR) Not detected (NOT DETECT) 05/13/23 15:35 C. pneumoniae DNA (PCR) Not detected (NOT DETECT) 05/13/23 15:35 Coronavirus 229E (PCR) Not detected (NOT DETECT) 05/13/23 15:35 Human Metapneumovir PCR Not detected (NOT DETECT) 05/13/23 15:35 Influenza A (H1) PCR Not detected (NOT DETECT) 05/13/23 15:35 Influenza A (H3) PCR Not detected (NOT DETECT) 05/13/23 15:35 Influenza Type A (PCR) Not detected (NOT DETECT) 05/13/23 15:35 Influenza Type B (PCR) Not detected (NOT DETECT) 05/13/23 15:35 M. pneumoniae (PCR) Not detected (NOT DETECT) 05/13/23 15:35 Parainfluenza 1 (PCR) Not detected (NOT DETECT) 05/13/23 15:35 Parainfluenza 2 (PCR) Not detected (NOT DETECT) 05/13/23 15:35 Parainfluenza 3 (PCR) Not detected (NOT DETECT) 05/13/23 15:35 Parainfluenza 4 (PCR) Not detected (NOT DETECT) 05/13/23 15:35 RSV Type A (PCR) Not detected (NOT DETECT) 05/13/23 15:35 RSV Type B (PCR) Not detected (NOT DETECT) 05/13/23 15:35 Entero/Rhino (PCR) Not detected (NOT DETECT) 05/13/23 15:35 SARS-CoV-2 (PCR) Not detected (NOT DETECT) 05/13/23 15:35 Vitals Last Vital Signs Temp 97.8 F 05/16/23 08:00 Pulse 80 05/16/23 08:00 Resp 16 05/16/23 08:00 BP 148/77 05/16/23 08:00 Pulse Ox 94 05/16/23 08:00 O2 Del Method Nasal Cannula 05/16/23 08:00 O2 Flow Rate 3 05/16/23 08:00 Discharge Plan Discharge Patient Disposition: Xfer SNF Condition: Stable Prescriptions: New levofloxacin 750 mg Tablet 750 mg PO DAILY 7 Days Qty: 7 0RF prednisone 20 mg tablet 40 mg PO DAILY 5 Days Qty: 10 0RF doxycycline hyclate 100 mg tablet 100 mg PO BID 10 Days Qty: 20 0RF Continued aspirin [Adult Low Dose Aspirin] 81 mg tablet,delayed release (DR/EC) 81 mg PO DAILY atorvastatin 40 mg tablet 40 mg PO BEDTIME buspirone 10 mg tablet 10 mg PO TID metoprolol tartrate 25 mg tablet 25 mg PO BID Rx Instructions: Hold: Diastolic Blood Pressure <50, pulse is <50. Systolic Blood Pressure is <100 tamsulosin 0.4 mg capsule 0.4 mg PO BEDTIME cetirizine 5 mg tablet 5 mg PO DAILY ferrous sulfate 325 mg (65 mg iron) tablet 325 mg PO DAILY hydrocodone-acetaminophen 5-325 mg tablet 1 tab PO Q8H PRN (Reason: Moderate Pain (Scale Score 5-6)) Yupelri 175 mcg/3 mL solution for nebulization 175 mcg inhalation DAILY Qty: 90 4RF acetaminophen [Mapap Arthritis Pain] 650 mg Tablet Extended Release 650 mg PO Q6H PRN (Reason: pain) bisacodyl 10 mg Suppository 10 mg DC DAILY PRN (Reason: Constipation) Enema Disposable 19-7 gram/118 mL Enema 118 ml DC PRN PRN (Reason: Constipation) sucralfate 1 gram tablet 1 g PO BID venlafaxine 150 mg Capsule,Extended Release 24hr 150 mg PO DAILY lorazepam 0.5 mg Tablet 0.5 mg PO DAILY PRN (Reason: Anxiety) mirtazapine 15 mg tablet 30 mg PO DAILY PRN (Reason: Constipation) magnesium L-lactate 84 mg Tablet Extended Release 84 mg PO DAILY montelukast 10 mg tablet 10 mg PO BEDTIME benzonatate 100 mg Capsule 100 mg PO TID PRN (Reason: Cough) Qty: 90 0RF ipratropium bromide 0.02 % Solution 2.5 ml INHALATION QID albuterol sulfate 90 mcg/actuation Hfa Aerosol Inhaler 2 puff INHALATION Q6H PRN (Reason: Shortness Of Breath Or Wheezing) sennosides 8.6 mg Tablet 8.6 mg PO DAILY Milk of Magnesia 400 mg/5 mL Suspension 15 ml PO DAILY PRN (Reason: Constipation) metformin 1,000 mg Tablet 1,000 mg PO BIDWMEAL gabapentin 300 mg capsule 300 mg PO TID naloxone 4 mg/actuation spray,non-aerosol 1 spray INTRANASAL Q1-2M PRN (Reason: Opioid Overdose) omeprazole 40 mg Capsule,Delayed Release(Dr/Ec) 40 mg PO DAILY Breo Ellipta 100-25 mcg/dose Blister With Device 1 inh INHALATION DAILY Changed albuterol sulfate 2.5 mg /3 mL (0.083 %) solution for nebulization 2.5 mg inhalation Q4H Qty: 180 0RF citalopram 10 mg tablet 40 mg PO DAILY Qty: 120 0RF Discontinued amoxicillin-pot clavulanate 875-125 mg tablet 1 tab PO BID Discharge Orders: Discharge Order (Routine); Ordered 05/16/23 Ordered By: Phill Velez Referrals: [facility] [Outside] Alfredito Muro DO [Primary Care Provider] - 1-3 days Discharge Diet: Advance as tolerated and Usual diet Discharge Activity: Resume usual activity and Increase activity as tolerated Patient Instructions: Opioid Safety Activity Restrictions/Additional Instructions: 1. Increase activity as tolerated. 2. Take medications as prescribed. 3. Follow up with provider. Discharge Attestations Time Spent in Discharge Care*: greater than 30 min Status at Discharge: Cognitive status at discharge: cognitively intact, Behavioral status at discharge: cooperative, Quality Metrics Clinical Quality Measures [ No reported AMI, CVA or VTE this stay] Coding Level of Care Code Acute Code for g Fwd Diagnoses Acute on chronic respiratory failure with hypoxemia J96.21 COPD (chronic obstructive pulmonary disease) J43.2 COPD type: emphysema Emphysema type: centrilobular Centrilobular emphysema J43.2 CKD (chronic kidney disease) N18.9 Type 2 diabetes mellitus E11.9 Influenza J11.1 MRSA carrier Z22.322
[2023-05-16 11:20] LABS: SARS Covid-2 Antigen negative (Negative)
[2023-05-17 10:23] LABS: Glucose Point of Care 266 mg/dL (70-110)
[2023-05-17 10:23] LABS: Glucose Point of Care 356 mg/dL (70-110)
[2023-05-17 10:23] LABS: Glucose Point of Care 77 mg/dL (70-110)
== END 2023-05-16 19:00 | disposition skilled nursing facility (03) | DRG 190 ==
LOC: ER 15:30 → MEDSURG 17:02
PROVIDERS: Admitting Provider Student in an Organized Health Care Education/Training Program; Emergency Provider Emergency Medicine; PCP Internal Medicine; Visit Provider Internal Medicine
DX: J43.2 Centrilobular emphysema (principal); J96.21 Acute and chronic respiratory failure with hypoxia; E11.51 Type 2 diabetes mellitus with diabetic peripheral angiopathy without gangrene; E11.22 Type 2 diabetes mellitus with diabetic chronic kidney disease; I12.9 Hypertensive chronic kidney disease with stage 1 through stage 4 chronic kidney disease, or unspecified chronic kidney disease; N18.9 Chronic kidney disease, unspecified; I25.10 Atherosclerotic heart disease of native coronary artery without angina pectoris; Z95.5 Presence of coronary angioplasty implant and graft; F41.9 Anxiety disorder, unspecified; Z79.82 Long term (current) use of aspirin; Z79.891 Long term (current) use of opiate analgesic; Z79.51 Long term (current) use of inhaled steroids; Z79.84 Long term (current) use of oral hypoglycemic drugs; J10.1 Influenza due to other identified influenza virus with other respiratory manifestations; Z86.16 Personal history of COVID-19; K21.9 Gastro-esophageal reflux disease without esophagitis; M10.9 Gout, unspecified; Z99.81 Dependence on supplemental oxygen; Z22.322 Carrier or suspected carrier of Methicillin resistant Staphylococcus aureus; F17.210 Nicotine dependence, cigarettes, uncomplicated; Z85.828 Personal history of other malignant neoplasm of skin; Z87.01 Personal history of pneumonia (recurrent)
CPT/HCPCS: 36415; 36416; 36600; 71045; 71260; 80051; 80053; 80061; 81003; 82330; 82746; 82805; 82962; 83036; 83735; 84100; 84132; 84145; 84443; 85025; 86140; 87070; 87077; 87186; 87205; 87426; 87486; 87581; 87633; 87641; 94640; 96365; 96367; 96372; 96375; 99285; J1650; J1815; J2543; J2920; J2930; J3370; J7030; J7050; J7626; Q9967

== ENCOUNTER → 2023-07-12 13:14 | Outpatient (BNVA) | payer MEDICARE, MEDICAID, SELFPAY | PROVIDERS: PCP Internal Medicine; Visit Provider Nurse Practitioner Family | DX: C44.319 Basal cell carcinoma of skin of other parts of face (principal); S60.922A Unspecified superficial injury of left hand, initial encounter; S60.911A Unspecified superficial injury of right wrist, initial encounter; X58.XXXA Exposure to other specified factors, initial encounter; L57.8 Other skin changes due to chronic exposure to nonionizing radiation | CPT/HCPCS: 99213 ==

== ENCOUNTER → 2023-08-29 15:00 | Outpatient (BNVA) | payer MEDICARE, MEDICAID, SELFPAY | PROVIDERS: PCP Internal Medicine; Visit Provider Internal Medicine Pulmonary Disease | DX: Z09 Encounter for follow-up examination after completed treatment for conditions other than malignant neoplasm (principal); Z12.2 Encounter for screening for malignant neoplasm of respiratory organs; J43.2 Centrilobular emphysema; R59.0 Localized enlarged lymph nodes; Z99.81 Dependence on supplemental oxygen; Z87.891 Personal history of nicotine dependence | CPT/HCPCS: 99214 ==

== ENCOUNTER → 2023-08-30 09:39 | Outpatient (BNVA) | payer MEDICARE, MEDICAID, SELFPAY | PROVIDERS: PCP Internal Medicine; Visit Provider Dermatology | DX: C44.319 Basal cell carcinoma of skin of other parts of face (principal) | CPT/HCPCS: 17311 ==

== ENCOUNTER 2023-11-12 15:00 | Inpatient (IN) | payer MEDICARE, MEDICAID, SELFPAY ==
[2023-11-12] VITALS (9 sets, daily range): BP systolic 129–146; BP diastolic 77–93; PULSE 72–106; RESP 18–26; TEMP 36.7–37; O2SAT 88–98; BMI 31.6
--- NOTE | 2023-11-12 15:16 | XRR_ITS ---
PROCEDURE INFORMATION: Exam: XR Chest Exam date and time: 11/12/2023 3:34 PM Age: 68 years old Clinical indication: Cough and dyspnea; Patient HX: Severe SOB; Congestion; Labored breathing; Headache TECHNIQUE: Imaging protocol: Radiologic exam of the chest. Views: 1 view. COMPARISON: CT chest w con* [id number] 05/13/2023 2:19 PM FINDINGS: Lungs: Patchy bilateral right greater than left largely mid to lower lung field mixed interstitial and airspace infiltrates. Pleural spaces: Small bilateral pleural effusions. Heart/Mediastinum: Cardiomegaly. Bones/joints: Unremarkable. XR/XR chest 1V portable [id number] IMPRESSION: 1. Small bilateral pleural effusions. 2. Patchy bilateral right greater than left largely mid to lower lung field mixed interstitial and airspace infiltrates. 3. Cardiomegaly.
--- NOTE | 2023-11-12 15:20 | ED_ITS ---
HPI - SOB/Dyspnea 2 General: Chief Complaint: Shortness of Breath/Dyspnea Stated Complaint: SOB Time Seen by Provider: 11/12/23 15:15 Source: patient Mode of arrival: ambulatory History of Present Illness: HPI Narrative: 68-year-old male presents to the emergen cy room complaining shortness of breath and abdominal pain headache is low-grade fever as well has had a persistent headache for the last couple of days. He also has not been able to urinate fully he states he is actually has more difficulty with urination when sitting up it is better when he lays down. Has not noticed any swelling in his feet. He has a history of COPD is chronically on 3 L by nasal cannula lying nearly flat he is able to maintain sats in the low 90s consistently on 3 L/min patient is a former smoker quit a year ago he denies any chest pain or discomfort. MD elicited complaint: shortness of breath and cough Pertinent past history: COPD Associated symptoms: Deny abdominal pain, chest pain or fever(s) Review of Systems 2 Const: Denies: fever(s) or chills Card: Denies: chest pain Resp: Denies: dyspnea GI: Denies: abdominal pain : Denies: dysuria, urinary frequency or urinary urgency Musc: Denies: neck pain or back pain Skin/Breast: Denies: rash PFSH ED 2 PFSH: Medical History Hospital discharge follow-up Acute respiratory failure due to COVID-19 Encounter for screening for lung cancer Exertional dyspnea Encounter for smoking cessation counseling COPD (chronic obstructive pulmonary disease) MRSA carrier Centrilobular emphysema Hypoxia Type 2 diabetes mellitus COVID-19 Positive DENY (antinuclear antibody) COVID-19 vaccine dose not administered Pneumonia CAD (coronary artery disease) Prostatic hypertrophy On home oxygen therapy Usually on 2 L by nasal cannula Skin cancer Specific type unknown PVD (peripheral vascular disease) Gout CKD (chronic kidney disease) GERD (gastroesophageal reflux disease) Hypertension Diabetes mellitus Mediastinal adenopathy Anxiety disorder Tobacco use Surgical History History of cholecystectomy History of coronary artery stent placement X2 History of skin surgery Left neck for skin cancer Presence of coronary angioplasty implant and graft Family History Mother Cancer Father CAD (coronary artery disease) Social History Smoking and tobacco/nicotine status: former use of tobacco/nicotine Quit status (tobacco/nicotine): has quit using Year quit tobacco: 2022 Former quit date comment: 2 ppd X 60 years Second hand smoke exposure: Yes Alcohol intake: former Substance/Drug Use: never Caregiver/support person: Yes Lives independently: No Housing: Long Term Marital status: / service: No Current occupational status: disabled Pets and animals: Yes Do you think of yourself as: Straight/Heterosexual Current gender identity: Male Physical Exam 2 Const: GENERAL APPEARANCE: cooperative ORIENTATION/CONSCIOUSNESS: Yes awake, Yes oriented to person, Yes oriented to place and Yes oriented to time HENMT: COMMON NORMALS: normocephalic, atraumatic and hearing grossly normal bilaterally HEAD & SCALP: normocephalic and atraumatic Resp: COMMON NORMALS: normal respiratory effort, No retractions and No use of accessory muscles AUSCULTATION: rhonchi and wheezes Cardio: COMMON NORMALS: regular rhythm and No murmurs present (Cardio) R ATE: tachycardic RHYTHM: regular rhythm GI: COMMON NORMALS: Soft to palpation and No hepatosplenomegaly present A USCULTATION: Yes normoactive bowel sounds PALPATION: Yes Soft to palpation, No Tenderness to palpation present (GI), No Guarding due to palpation present (GI) and Yes No hepatosplenomegaly present Extremity: COMMON NORMALS: normal to inspection, capillary refill normal, no clubbing, cyanosis or edema, no calf tenderness and no pedal edema Neuro: SENSORIUM/ORIENTATION: Yes oriented to person, Yes oriented to place and Yes oriented to time Skin: COMMON NORMALS: no rashes or lesions noted GENERAL SKIN EXAM: no rashes or lesions noted Course 2 Vital Signs: Vital signs: Vital Signs Temperature 98.6 F 11/12/23 15:01 Pulse Rate 106 H 11/12/23 16:57 Respiratory Rate 24 H 11/12/23 16:57 Blood Pressure 129/81 11/12/23 16:57 Pulse Oximetry 92 11/12/23 16:57 Oxygen Delivery Me thod Nasal Cannula 11/12/23 16:57 Oxygen Flow Rate 3 11/12/23 16:57 MDM - SOB/Dyspnea Medical Decision Making Acute exacerbation COPD with bilateral pneumonias. Started on ceftriaxone and Zithromax appropriate cultures completed. Discussed with hospitalist orders written Medical Records I reviewed the patient's medical records. Lab Data I reviewed the patient's lab results. 11/12/23 16:05 11/12/23 16:05 Labs/Radiology: Radiology Impressions Chest X-Ray 11/12/23 15:16 IMPRESSION: 1. Small bilateral pleural effusions. 2. Patchy bilateral right greater than left largely mid to lower lung field mixed interstitial and airspace infiltrates. 3. Cardiomegaly. Laboratory Results WBC 9.90 10^3/uL (3.29-11.43) 11/12/23 16:05 RBC 5.49 10^6/uL (3.85-5.65) 11/12/23 16:05 Hgb 12.60 g/dL (11.27-16.99) 11/12/23 16:05 Hct 43.9 % (37-53) 11/12/23 16:05 MCV 80.0 fl (82-101) L 11/12/23 16:05 MCH 23.0 pg (27-33) L 11/12/23 16:05 MCHC 28.7 g/dL (30-55) L 11/12/23 16:05 RDW 16.9 % (12.1-15.1) H 11/12/23 16:05 Plt Count 238 10^3/cmm (157-399) 11/12/23 16:05 MPV 9.3 fL (7.4-10.4) 11/12/23 16:05 Neut % (Auto) 78.3 % 11/12/23 16:05 Lymph % (Auto) 9.3 % 11/12/23 16:05 [facility] % (Auto) 11.3 % 11/12/23 16:05 Eos % (Auto) 0.1 % 11/12/23 16:05 Baso % (Auto) 0.4 % 11/12/23 16:05 Neut # (Auto) 7.75 10^3/uL (1.8-7.7) H 11/12/23 16:05 Lymph # (Auto) 0.9 10^3/uL (0.8-4.8) 11/12/23 16:05 [facility] # (Auto) 1.1 10^3/uL (0.2-0.9) H 11/12/23 16:05 Eos # (Auto) 0.0 10^3/uL (0.0-0.8) 11/12/23 16:05 Baso # (Auto) 0.0 10^3/uL (0.0-0.1) 11/12/23 16:05 Nucleated RBC % (auto) 0 % 11/12/23 16:05 Nucleated RBCs # 0.0 /100WBC 11/12/23 16:05 Sodium 130 mmol/L (136-145) L 11/12/23 16:05 Potassium 5.6 mmol/L (3.5-5.1) H 11/12/23 16:05 Chloride 90 mmol/L (98-107) L 11/12/23 16:05 Carbon Dioxide 29 mmol/L (22-29) 11/12/23 16:05 Carbon Dioxide 29 mmol/L (22-29) 11/12/23 16:05 Anion Gap 15.3 (5-19) 11/12/23 16:05 Anion Gap 16.6 (5-19) 11/12/23 16:05 BUN 21 mg/dL (8-23) 11/12/23 16:05 BUN 22 mg/dL (8-23) 11/12/23 16:05 Creatinine 1.6 mg/dL (0.7-1.2) H 11/12/23 16:05 GFR Calculation 43.5 mL/min (90-130) L 11/12/23 16:05 Glucose 158 mg/dL (65-115) H 11/12/23 16:05 Calculated Osmolality 276 mOsm/kg (285-295) L 11/12/23 16:05 Lactic Acid 1.6 mmol/L (0.5-2.2) 11/12/23 16:05 Calcium 8.4 mg/dL (8.5-10.5) L 11/12/23 16:05 Calcium 8.7 mg/dL (8.5-10.5) 11/12/23 16:05 Total Bilirubin 0.4 mg/dL (0.15-1.2) 11/12/23 16:05 AST 14 U/L (0-40) 11/12/23 16:05 ALT 11 U/L (0-41) 11/12/23 16:05 Alkaline Phosphatase 97 U/L (40-130) 11/12/23 16:05 Troponin T Baseline 55 ng/L (0-15) H 11/12/23 16:05 NT-Pro-B Natriuret Pep 665 pg/mL (0-125) H 11/12/23 16:05 Total Protein 7.1 g/dL (6.6-8.7) 11/12/23 16:05 Albumin 3.4 g/dL (3.5-5.2) L 11/12/23 16:05 Globulin 3.7 g/dL (1.3-4.6) 11/12/23 16:05 Procalcitonin 0.50 ng/mL (0-0.5) 11/12/23 16:05 Urine Color Yellow (Yellow) 11/12/23 15:33 Urine Appearance Clear (CLEAR) 11/12/23 15:33 Urine pH 5 (5-7) 11/12/23 15:33 Ur Specific [place] 1.015 (1.005-1.030) 11/12/23 15:33 Urine Protein Neg (Negative) 11/12/23 15:33 Urine Glucose (UA) 1+ (Normal) H 11/12/23 15:33 Urine Ketones Negative (Negative) 11/12/23 15:33 Urine Blood 2+ (Negative) H 11/12/23 15:33 Urine Nitrate Negative (Negative) 11/12/23 15:33 Urine Bilirubin Neg (Negative) 11/12/23 15:33 Urine Urobilinogen Norm mg/dL (Negative) 11/12/23 15:33 Ur Leukocyte Esterase Negative (Negative) 11/12/23 15:33 Urine RBC 0-4 /hpf (0-2) H 11/12/23 15:33 Urine WBC None /hpf (0-5) 11/12/23 15:33 Ur Squamous Epith Cells None /hpf (0-5) 11/12/23 15:33 Amorphous Sediment Not Reportable 11/12/23 15:33 Urine Bacteria 1+ /hpf (NONE) H 11/12/23 15:33 Adenovirus (PCR) Not detected (NOT DETECT) 11/12/23 15:50 C. pneumoniae DNA (PCR) Not detected (NOT DETECT) 11/12/23 15:50 Coronavirus 229E (PCR) Not detected (NOT DETECT) 11/12/23 15:50 Human Metapneumovir PCR Not detected (NOT DETECT) 11/12/23 15:50 Influenza A (H1) PCR Not detected (NOT DETECT) 11/12/23 15:50 Influ A (H1/09) PCR Not detected (NOT DETECT) 11/12/23 15:50 Influenza A (H3) PCR Not detected (NOT DETECT) 11/12/23 15:50 Influenza Type A (PCR) Not detected (NOT DETECT) 11/12/23 15:50 Influenza Type B (PCR) Not detected (NOT DETECT) 11/12/23 15:50 M. pneumoniae (PCR) Not detected (NOT DETECT) 11/12/23 15:50 Parainfluenza 1 (PCR) Not detected (NOT DETECT) 11/12/23 15:50 Parainfluenza 2 (PCR) Not detected (NOT DETECT) 11/12/23 15:50 Parainfluenza 3 (PCR) Detected (NOT DETECT) A 11/12/23 15:50 Parainfluenza 4 (PCR) Not detected (NOT DETECT) 11/12/23 15:50 RSV Type A (PCR) Not detected (NOT DETECT) 11/12/23 15:50 RSV Type B (PCR) Not detected (NOT DETECT) 11/12/23 15:50 Entero/Rhino (PCR) Not detected (NOT DETECT) 11/12/23 15:50 SARS-CoV-2 (PCR) Not detected (NOT DETECT) 11/12/23 15:50 All radiology interpretation(s) finalized by discharge Discharge Plan Discharge Patient Disposition: Admitted As Inpatient Admit Provider: Phill Velez Clinical Impression: Acute exacerbation of chronic obstructive airways disease, Hypertension, Interstitial pulmonary fibrosis Community acquired pneumonia Qualifiers: Laterality: unspecified laterality Qualified Code(s): J18.9 - Pneumonia, unspecified organism Diabetes mellitus Qualifiers: Diabetes mellitus type: type 2 Diabetes mellitus machine long goods helper insulin use: with assisted use Diabetes mellitus complication status: with kidney complications D iabetes mellitus complication detail: with chronic kidney disease Chronic kidney disease stage: stage 3 (moderate) Chronic kidney disease stage 3 subtype: stage 3b (GFR 30-44) Qualified Code(s): E11.22 - Type 2 diabetes mellitus with diabetic chronic kidney disease Condition: Stable Coding Level of Care Code ED Asbestos Removal Supervisor for Naresh Pepper
[2023-11-12] MEDS: dexamethasone 10 mg/mL INJ IVP (15:45)
[2023-11-12] MEDS: acetaminophen 500 mg Tablet 1000 MG PO (15:45)
[2023-11-12 15:49] LABS: Blood Urine 2+ (Negative); Glucose Urine UA 1+ (Normal); Ketones Urine Negative (Negative); Protein Urine Neg (Negative); Specific Gravity, Urine 1.015 (1.005-1.030); Urine Appearance Clear (CLEAR); Urine Color Yellow (Yellow); pH Urine 5 (5-7)
[2023-11-12 15:50] LABS: Add Urine Culture? No; Add Urine Microscopic? YES; Bacteria Urine 1+ /hpf; Bilirubin Urine Neg (Negative); Leukocyte Esterase Urine Negative (Negative); Nitrate Urine Negative (Negative); RBC Urine 0-4 /hpf (0-2); Urobilinogen Urine Norm (Negative)
[2023-11-12 16:21] LABS: Basophils % 0.4 %; Eosinophils % 0.1 %; Hematocrit 43.9 % (37-53); Lymphocytes # 0.9 10^3/uL (0.8-4.8); Lymphocytes % 9.3 %; Mean Corpuscular HGB Conc 28.7 g/dL (30-55); Mean Platelet Volume 9.3 fL (7.4-10.4); Monocytes # 1.1 10^3/uL (0.2-0.9); Monocytes % 11.3 %; Neutrophils # 7.75 10^3/uL (1.8-7.7); Neutrophils % 78.3 %; Nucleated Red Blood Cells % 0 %; Platelet Count 238 10^3/cmm (157-399); Red Blood Count 5.49 10^6/uL (3.85-5.65); Red Cell Distribution Width 16.9 % (12.1-15.1)
[2023-11-12 16:37] LABS: Lactic Sepsis W/Reflex 1.6 mmol/L (0.5-2.2)
[2023-11-12 16:44] LABS: Troponin(5th) Baseline 55 ng/L (0-15)
--- NOTE | 2023-11-12 16:46 | PM.HP ---
Providers/Chief Complaint Primary Care Provider: Alfredito Muro DO Chief Complaint: SOB History of Present Illness Marlo Pike is a 68-year-old male with a past medical history significant for chronic hypoxic respiratory failure on 3 L baseline, COPD/emphysema, type 2 diabetes mellitus, coronary artery disease and severe anxiety who presented from nursing facility with shortness of breath x 2 to 3 days. He endorses associated symptoms of fatigue, malaise, myalgias, productive cough, and headache. Reports exertion worsens symptoms. Rest improves symptoms. Reports recent sick contacts. Denies recent travels. In the emergency department, patient was found to be in respiratory distress. Imaging revealed community-acquired pneumonia. He was started on antibiotics. He was found to be retaining urine for which Akhtar catheter was placed. Review of Systems Narrative: A complete review of systems was obtained and is negative except as stated in HPI. Medications/Allergies Home Medications Medication Instructions Recorded Confirmed Last Taken Type aspirin 81 mg tablet,delayed 81 mg PO DAILY 01/21/21 08/29/23 Unknown History release (Adult Low Dose Aspirin) atorvastatin 40 mg tablet 40 mg PO BEDTIME 01/21/21 08/29/23 Unknown History buspirone 10 mg tablet 10 mg PO TID 01/21/21 08/29/23 Unknown History cetirizine 5 mg tablet 5 mg PO DAILY 01/21/21 08/29/23 Unknown History ferrous sulfate 325 mg (65 mg 325 mg PO DAILY 01/21/21 08/29/23 Unknown History iron) tablet hydrocodone 5 mg-acetaminophen 325 1 tab PO Q8H PRN Moderate Pain 01/21/21 08/29/23 Unknown History mg tablet (Scale Score 5-6) metoprolol tartrate 25 mg tablet 25 mg PO BID 01/21/21 08/29/23 Unknown History tamsulosin 0.4 mg capsule 0.4 mg PO BEDTIME 01/21/21 08/29/23 Unknown History acetaminophen 650 mg 650 mg PO Q6H PRN pain 05/08/21 08/29/23 Unknown History tablet,extended release (Mapap Arthritis Pain) bisacodyl 10 mg rectal suppository 10 mg TN DAILY PRN Constipation 05/08/21 08/29/23 Unknown History sodium phosphates 19 gram-7 118 ml TN PRN PRN Constipation 05/08/21 08/29/23 Unknown History gram/118 mL enema (Enema Disposable) montelukast 10 mg tablet 10 mg PO BEDTIME 04/04/22 08/29/23 Unknown History benzonatate 100 mg capsule 100 mg PO TID PRN Cough #90 caps 04/09/22 08/29/23 Unknown Rx ipratropium bromide 0.02 % 2.5 ml inhalation QID 02/19/23 08/29/23 Unknown History solution for inhalation lorazepam 0.5 mg tablet 0.5 mg PO DAILY PRN Anxiety 03/26/23 08/29/23 Unknown History magnesium L-lactate 84 mg 84 mg PO DAILY 03/26/23 08/29/23 Unknown History tablet,extended release mirtazapine 15 mg tablet 30 mg PO DAILY PRN Constipation 03/26/23 08/29/23 Unknown History sucralfate 1 gram tablet 1 g PO BID 03/26/23 08/29/23 Unknown History venlafaxine 150 mg 150 mg PO DAILY 03/26/23 08/29/23 Unknown History capsule,extended release 24 hr albuterol sulfate 90 mcg/actuation 2 puff inhalation Q6H PRN 05/13/23 08/29/23 Unknown History aerosol inhaler Shortness Of Breath Or Wheezing gabapentin 300 mg capsule 300 mg PO TID 05/13/23 08/29/23 Unknown History magnesium hydroxide 400 mg/5 mL 15 ml PO DAILY PRN Constipation 05/13/23 08/29/23 Unknown History oral suspension (Milk of Magnesia) metformin 1,000 mg tablet 1,000 mg PO BIDWMEAL 05/13/23 08/29/23 Unknown History naloxone 4 mg/actuation nasal spray 1 spray intranasal Q1-2M PRN 05/13/23 08/29/23 Unknown History Opioid Overdose omeprazole 40 mg capsule,delayed 40 mg PO DAILY 05/13/23 08/29/23 Unknown History release sennosides 8.6 mg tablet 8.6 mg PO DAILY 05/13/23 08/29/23 Unknown History albuterol sulfate 2.5 mg/3 mL 2.5 mg (3 mL) inhalation Q4H 05/16/23 08/29/23 05/13/23 Rx (0.083 %) solution for nebulization shortness of breath #180 mL citalopram 10 mg tablet 40 mg (4 x 10 mg) PO DAILY #120 05/16/23 08/29/23 Unknown Rx tabs budesonide-formoterol HFA 160 2 puff inhalation BID #10.2 grams 08/29/23 08/29/23 Unknown Rx mcg-4.5 mcg/actuation aerosol inhaler (Symbicort) tiotropium bromide 18 mcg capsule 1 cap inhalation DAILY #60 08/29/23 08/29/23 Unknown Rx with inhalation device (Spiriva inhalations with HandiHaler) Allergies Allergy/AdvReac Type Severity Reaction Status Date / Time No Known Allergies Allergy Verified 11/12/23 15:07 PFSH Acute PFSH: Medical History Hospital discharge follow-up Acute respiratory failure due to COVID-19 Encounter for screening for lung cancer Exertional dyspnea Encounter for smoking cessation counseling COPD (chronic obstructive pulmonary disease) MRSA carrier Centrilobular emphysema Hypoxia Type 2 diabetes mellitus COVID-19 Positive DENY (antinuclear antibody) COVID-19 vaccine dose not administered Pneumonia CAD (coronary artery disease) Prostatic hypertrophy On home oxygen therapy Usually on 2 L by nasal cannula Skin cancer Specific type unknown PVD (peripheral vascular disease) Gout CKD (chronic kidney disease) GERD (gastroesophageal reflux disease) Hypertension Diabetes mellitus Mediastinal adenopathy Anxiety disorder Tobacco use Surgical History History of cholecystectomy History of coronary artery stent placement X2 History of skin surgery Left neck for skin cancer Presence of coronary angioplasty implant and graft Family History Mother Cancer Father CAD (coronary artery disease) Social History Smoking and tobacco/nicotine status: former use of tobacco/nicotine Quit status (tobacco/nicotine): has quit using Year quit tobacco: 2022 Former quit date comment: 2 ppd X 60 years Second hand smoke exposure: Yes Alcohol intake: former Substance/Drug Use: never Caregiver/support person: Yes Lives independently: No Housing: Long-Term Marital status: / service: No Current occupational status: disabled Pets and animals: Yes Do you think of yourself as: Straight/Heterosexual Current gender identity: Male Vitals/I&O/Wt Last Vital Signs Temp 98.6 F 11/12/23 15:01 Pulse 102 H 11/12/23 15:53 Resp 24 H 11/12/23 15:51 BP 141/93 11/12/23 15:51 Pulse Ox 98 11/12/23 15:51 O2 Del Method Nasal Cannula 11/12/23 15:51 O2 Flow Rate 3 11/12/23 15:51 Weight last 48 hrs Weight 90.718 kg Physical Exam Narrative: General: Patient is awake. Acutely ill-appearing. Head: Normocephalic. Atraumatic. EOM intact. Neck: No JVD. Cardiovascular: RRR. No gallops. No murmurs. Lungs: Breath sounds decreased in bilateral bases. Bilateral rhonchi present. Faint end expiratory wheezing present. No rales. No crackles. On supplemental support. Increased work of breathing with dyspnea when speaking. Skin: No jaundice. No rashes. Abdomen: Normal bowel sounds, abdomen soft and nontender. Genito Urinary: Akhtar catheter is present with merari urine. Rectal: Rectal exam not performed since no symptoms indicated blood loss. Extremities: No cyanosis or clubbing. Musculoskeletal: No swollen or erythematous joints. Neurological: Moves all 4 extremities. No myoclonus. Urinary Catheter Management: Akhtar: Cath Placed During This Visit: yes Urinary Catheter Date of Insertion: 11/12/23 Urinary Catheter Time of Insertion: 15:25 Data 11/12/23 16:05 11/12/23 16:05 Micro: Microbiology 11/12/23 16:12 Blood Culture - Preliminary Blood SPECIMEN COLLECTED 11/12/23 16:05 Blood Culture - Preliminary Blood SPECIMEN COLLECTED A&P Assessment and plan (1) Community acquired pneumonia: Check procalcitonin and CRP Bacterial urinary antigens Start ceftriaxone Start azithromycin Pulmonary toilet Start IV steroids Nebulizing treatments Supportive care Qualifiers: Laterality: unspecified laterality Qualified Code(s): J18.9 - Pneumonia, unspecified organism (2) COPD (chronic obstructive pulmonary disease): Acute COPD exacerbation with chronic hypoxic respiratory failure Management as above Qualifiers: COPD type: emphysema Emphysema type: centrilobular Qualified Code(s): J43.2 - Centrilobular emphysema (3) Interstitial pulmonary fibrosis: Patient high risk giving underlying IPF lung disease Recommend continued outpatient follow-up with pulmonary medicine Steroids as above (4) CAD (coronary artery disease): Continue home aspirin Qualifiers: Coronary Disease-Associated Artery/Lesion type: [place] artery [place] vs. transplanted heart: [place] heart Associated angina: without angina Qualified Code(s): I25.10 - Atherosclerotic heart disease of [place] coronary artery without angina pectoris (5) Hypertension: Continue home meds (6) Diabetes mellitus: Type 2 diabetes mellitus Appears diet controlled May develop steroid-induced hyperglycemia, monitoring Qualifiers: Diabetes mellitus type: type 2 Diabetes mellitus ferry terminal agent insulin use: with ferry terminal agent use Diabetes mellitus complication status: with kidney complications Diabetes mellitus complication detail: with chronic kidney disease Chronic kidney disease stage: stage 3 (moderate) Chronic kidney disease stage 3 subtype: stage 3b (GFR 30-44) Qualified Code(s): E11.22 - Type 2 diabetes mellitus with diabetic chronic kidney disease; N18.32 - Chronic kidney disease, stage 3b; Z79.4 - terminal superintendent (current) use of insulin Plan DVT prophylaxis: Lovenox CODE STATUS: Full code Attestations Medical Necessity Statement*: Patient presented with shortness of breath, found to have a community acquired pneumonia with respiratory distress with expected hospitalization not to cross 2 midnights for IV steroids and IV antibiotics. Coding Level of Care Code Acute Code for [facility] Fwd Diagnoses Community acquired pneumonia, unspecified laterality J18.9 Laterality: unspecified laterality Centrilobular emphysema J43.2 COPD type: emphysema Emphysema type: centrilobular Interstitial pulmonary fibrosis J84.10 Coronary artery disease involving [place] coronary artery of [place] heart without angina pectoris I25.10 Coronary Disease-Associated Artery/Lesion type: [place] artery [place] vs. transplanted heart: [place] heart Associated angina: without angina Hypertension I10 Type 2 diabetes mellitus with stage 3b chronic kidney disease, with long-term current use of insulin E11.22; N18.32; Z79.4 Diabetes mellitus type: type 2 Diabetes mellitus ferry terminal agent insulin use: with ferry terminal agent use Diabetes mellitus complication status: with kidney complications Diabetes mellitus complication detail: with chronic kidney disease Chronic kidney disease stage: stage 3 (moderate) Chronic kidney disease stage 3 subtype: stage 3b (GFR 30-44)
[2023-11-12] MEDS: cefTRIAXone 1,000 MG in sodium chloride 0.9% (plus) 50 ML 100 MG IV (16:48)
[2023-11-12 16:54] LABS: NT Pro B Type Natriuretic Pept 665 pg/mL (0-125)
--- NOTE | 2023-11-12 16:58 | PC.NURSE ---
pt requesting pain meds for head, pending further orders
[2023-11-12 17:05] LABS: Alanine Aminotransferase 11 U/L (0-41); Albumin Level 3.4 g/dL (3.5-5.2); Alkaline Phosphatase 97 U/L (40-130); Aspartate Amino Transferase 14 U/L (0-40); Blood Urea Nitrogen 21 mg/dL (8-23); Calcium 8.4 mg/dL (8.5-10.5); Carbon Dioxide 29 mmol/L (22-29); Chloride 90 mmol/L (98-107); Globulin 3.7 g/dL (1.3-4.6); Glomerular Filtration Rate 43.5 mL/min (90-130); Glucose 158 mg/dL (65-115); Osmolality Calculated 276 mOsm/kg (285-295); Sodium 130 mmol/L (136-145); Total Bilirubin 0.4 mg/dL (0.15-1.2); Total Protein 7.1 g/dL (6.6-8.7)
[2023-11-12] MEDS: azithromycin 500 MG in sodium chloride 0.9% 250 ML 250 MG IV (17:06)
--- NOTE | 2023-11-12 17:09 | ECG_ITS ---
[facility] Test Date: 2023-11-12 Pat Name: Marlo Gleason Department: Room: Gender: Male Newspaper Vendor: : 1955 Requested By: Simone Lima Order Number: [id number] Joy MD: Tino Martell M.D. Measurements Intervals [place] Rate: 104 P: 57 WV: 242 QRS: 97 QRSD: 103 T: 44 QT: 319 QTc: 421 Interpretive Statements SINUS TACHYCARDIA WITH FIRST DEGREE AV BLOCK BORDERLINE RIGHT AXIS DEVIATION [QRS AXIS > 90] Compared to ECG 11/12/2023 15:24:43 Atrial abnormality no longer present ST (T wave) deviation no longer present Electronically Signed On 11-13-2023 21:00:45 TRANSITIONS MANAGER RN by Tino Martell M.D. [id number]
[2023-11-12 17:17] LABS: Anion Gap 16.6 (5-19); Potassium 5.6 mmol/L (3.5-5.1)
--- NOTE | 2023-11-12 17:28 | PC.NURSE ---
attempted report, no answer
[2023-11-12 17:37] LABS: Adenovirus Not Detected (NOT DETECT); Chlamydia Pneumoniae Not Detected (NOT DETECT); Coronavirus 229E,HKU1,NL63,OC4 Not Detected (NOT DETECT); Human Metapneumovirus Not Detected (NOT DETECT); Human Rhinovirus/Enterovirus Not Detected (NOT DETECT); Influenza A Not Detected (NOT DETECT); Influenza A H1 Not Detected (NOT DETECT); Influenza A H1-2009 Not Detected (NOT DETECT); Influenza A H3 Not Detected (NOT DETECT); Influenza B Not Detected (NOT DETECT); Mycoplasma Pneumoniae Not Detected (NOT DETECT); Parainfluenza Virus Type 1 Not Detected (NOT DETECT); Parainfluenza Virus Type 2 Not Detected (NOT DETECT); Parainfluenza Virus Type 3 Detected (NOT DETECT); Parainfluenza Virus Type 4 Not Detected (NOT DETECT); Respiratory Syncytial Virus A Not Detected (NOT DETECT); Respiratory Syncytial Virus B Not Detected (NOT DETECT); SARS-COV-2 Not Detected (NOT DETECT)
[2023-11-12 18:05] LABS: Phosphorus 2.4 mg/dL (2.5-4.5)
[2023-11-12 18:21] LABS: Troponin 5 2HR 50.56 ng/L (0-15)
[2023-11-12 18:22] LABS: Troponin 5 2HR Delta -4.44 ABS# (0-10)
[2023-11-12 18:24] LABS: C Reactive Protein 164.1 mg/L (0.0-4.9)
[2023-11-12] MEDS: metoprolol tartrate 25 mg Tablet PO (19:34)
[2023-11-12] MEDS: sucralfate 1 gm Tablet PO (19:34)
[2023-11-12] MEDS: HYDROcodone-acetaminophen 5-325 mg Tablet 1 TAB PO (19:35)
[2023-11-12] MEDS: gabapentin 300 mg Capsule PO (20:57)
[2023-11-12] MEDS: montelukast sodium 10 mg Tablet PO (20:57)
[2023-11-12] MEDS: atorvastatin 40 mg Tablet PO (20:57)
[2023-11-12] MEDS: BuSPIRONE 10 mg Tablet PO (20:57)
[2023-11-12] MEDS: tamsulosin 0.4 mg Capsule 0.400000000000000022 MG PO (20:57)
--- NOTE | 2023-11-12 21:10 | PC.NURSE ---
This nurse observed patient breathing with normal respiratory effort and no wheezing until the patient was asked how he was feeling. He then began forcefully breathing and producing a wheezing sound. The upper and middle lobes, upon auscultation, are clear, with the bases of the lungs having a very faint expiratory wheeze. The patient is laying flat and refuses to be repositioned or have the head of the bed raised, stating that he can't breathe when sitting up. This nurse provided education regarding positioning techniques to help ease the work of breathing.
--- NOTE | 2023-11-12 21:16 | ECG_ITS ---
[facility] Test Date: 2023-11-12 Pat Name: Marlo Gleason Department: Room: Gender: Male Privacy Officer: : 1955 Requested By: Simone Lima Order Number: [id number] Joy MD: Tino Martell M.D. Measurements Intervals [place] Rate: 102 P: 49 [place]: 241 QRS: 102 QRSD: 95 T: 42 QT: 438 QTc: 572 Interpretive Statements SINUS TACHYCARDIA WITH FIRST DEGREE AV BLOCK POSSIBLE RIGHT VENTRICULAR HYPERTROPHY [SOME/ALL OF: PROMINENT R IN V1, LATE TRANSITION, RAD, MARIZA, SSS] MODERATE ST DEPRESSION [0.05+ mV ST DEPRESSION] Compared to ECG 03/26/2023 13:29:00 ST (T wave) deviation now present Sinus rhythm no longer present Electronically Signed On 11-12-2023 15:37:34 FOOD SERVICE TRAY ATTENDANT by Tino Martell M.D. [email or web address] systemNevo Energymetro[email or web address]/store/[id number]
[2023-11-12 23:47] LABS: Glucose Point of Care 235 mg/dL (70-110)
[2023-11-13] VITALS (18 sets, daily range): BP systolic 97–130; BP diastolic 51–77; PULSE 62–91; RESP 17–22; TEMP 36.4–36.7; O2SAT 87–97
[2023-11-13] MEDS: ipratropium-albuterol 3 mL Neb INHALATION ×6 (00:04→20:26)
[2023-11-13 01:07] LABS: Basophils % 0.3 %; Hematocrit 43.2 % (37-53); Lymphocytes # 0.6 10^3/uL (0.8-4.8); Lymphocytes % 7.6 %; Mean Corpuscular HGB Conc 29.9 g/dL (30-55); Mean Corpuscular Hemoglobin 23.4 pg (27-33); Mean Corpuscular Volume 78.3 fl (82-101); Mean Platelet Volume 9.3 fL (7.4-10.4); Monocytes # 0.2 10^3/uL (0.2-0.9); Neutrophils # 6.54 10^3/uL (1.8-7.7); Neutrophils % 89.1 %; Nucleated Red Blood Cells % 0 %; Platelet Count 276 10^3/cmm (157-399); Red Blood Count 5.52 10^6/uL (3.85-5.65); Red Cell Distribution Width 16.7 % (12.1-15.1); White Blood Count 7.34 10^3/uL (3.29-11.43)
[2023-11-13 01:25] LABS: Troponin 5 6HR 59.43 ng/L (0-15); Troponin 5 6HR Delta 4.43 ng/L (0-12)
[2023-11-13 01:35] LABS: Anion Gap 15.8 (5-19); Blood Urea Nitrogen 29 mg/dL (8-23); Calcium 8.2 mg/dL (8.5-10.5); Carbon Dioxide 30 mmol/L (22-29); Chloride 89 mmol/L (98-107); Creatinine Clr Calc Pharmacy 47.6168; Glomerular Filtration Rate 40.5 mL/min (90-130); Glucose 269 mg/dL (65-115); Magnesium 2.1 mg/dL (1.7-2.3); Osmolality Calculated 283 mOsm/kg (285-295); Phosphorus 3.4 mg/dL (2.5-4.5); Potassium 5.8 mmol/L (3.5-5.1); Sodium 129 mmol/L (136-145)
[2023-11-13] MEDS: HYDROcodone-acetaminophen 5-325 mg Tablet 1 TAB PO ×2 (04:34→13:38)
[2023-11-13 06:54] LABS: Glucose Point of Care 319 mg/dL (70-110)
[2023-11-13] MEDS: budesonide 0.5 mg/2 mL Neb 0.25 MG INHALATION ×2 (08:46→20:26)
[2023-11-13] MEDS: sucralfate 1 gm Tablet PO ×2 (08:51→17:21)
[2023-11-13] MEDS: pantoprazole DR 40 mg Tablet PO (08:51)
[2023-11-13] MEDS: BuSPIRONE 10 mg Tablet PO ×3 (08:51→20:42)
[2023-11-13] MEDS: venlafaxine ER (24HR) 150 mg Capsule PO (08:51)
[2023-11-13] MEDS: gabapentin 300 mg Capsule PO ×3 (08:51→20:43)
[2023-11-13] MEDS: metoprolol tartrate 25 mg Tablet PO ×2 (08:52→17:20)
[2023-11-13] MEDS: aspirin 81 mg EC Tablet PO (08:52)
[2023-11-13] MEDS: azithromycin 500 MG in sodium chloride 0.9% 250 ML 250 MG IV (08:52)
[2023-11-13] MEDS: cefTRIAXone 1,000 MG in sodium chloride 0.9% (plus) 50 ML 100 MG IV (08:53)
[2023-11-13 10:39] LABS: Glucose Point of Care 269 mg/dL (70-110)
[2023-11-13] MEDS: ondansetron 2 mg/ML SDV 2 mL 4 MG IVP (11:13)
[2023-11-13] MEDS: sodium polystyrene sulfonate 15 gm/60 mL Btl PO (14:54)
[2023-11-13] MEDS: LORazepam 0.5 mg Tablet PO (14:57)
--- NOTE | 2023-11-13 16:27 | PM.PN ---
Subjective Subjective: Patient endorses continued shortness of breath. He states his breathing is just as bad as yesterday when he presented. Endorses dyspnea on exertion, cough, fatigue, and malaise. Discussed his parainfluenza infection and treatment plan. Medications: Reviewed: Yes Vitals/I&O/Wt Last Vital Signs Temp 97.5 F L 11/13/23 11:48 Pulse 65 11/13/23 15:38 Resp 20 H 11/13/23 15:38 BP 106/63 11/13/23 15:38 Pulse Ox 95 11/13/23 15:38 O2 Del Method Room Air 11/13/23 15:38 O2 Flow Rate 2 11/13/23 15:24 11/13/23 11/13/23 11/13/23 06:59 14:59 22:59 Intake Total 660.000 / 660.000 Output Total 400 / 400 Balance -400 / 140 660.000 / 660.000 Weight last 48 hrs Weight 93.638 kg Weight 94.302 kg Weight 90.718 kg Physical Exam Narrative: General: Patient is awake. Ill-appearing. Conversational. Head: Normocephalic. Atraumatic. EOM intact. Neck: No JVD. Cardiovascular: RRR. No gallops. No murmurs. Lungs: Breath sounds decreased in bilateral bases. Persistent bilateral rhonchi present. Faint end expiratory wheezing present. No rales. No crackles. Work of breathing showing some improvement as compared to prior exam. Skin: No jaundice. No rashes. Abdomen: Normal bowel sounds, abdomen soft and nontender. Genito Urinary: Akhtar catheter is present with merari urine. Rectal: Rectal exam not performed since no symptoms indicated blood loss. Extremities: No cyanosis or clubbing. Musculoskeletal: No swollen or erythematous joints. Neurological: Moves all 4 extremities. No myoclonus. Urinary Catheter Management: Akhtar: Cath Placed During This Visit: yes Urinary Catheter Date of Insertion: 11/12/23 Urinary Catheter Time of Insertion: 15:25 Data 11/13/23 00:54 11/13/23 00:54 Micro: Microbiology 11/12/23 16:12 Blood Culture - Preliminary Blood NEGATIVE TO DATE 11/12/23 16:05 Blood Culture - Preliminary Blood NEGATIVE TO DATE 11/13/23 13:45 Bacterial Antigens - Final Urine,Clean Catch A&P Assessment and plan (1) Community acquired pneumonia: Community-acquired pneumonia complicated by parainfluenza infection Continue ceftriaxone azithromycin (11/12-present) Pulmonary toilet Continue Solu-Medrol Nebulizing treatments Supportive care Qualifiers: Laterality: unspecified laterality Qualified Code(s): J18.9 - Pneumonia, unspecified organism (2) COPD (chronic obstructive pulmonary disease): Acute COPD exacerbation with chronic hypoxic respiratory failure Management as above Qualifiers: COPD type: emphysema Emphysema type: centrilobular Qualified Code(s): J43.2 - Centrilobular emphysema (3) Interstitial pulmonary fibrosis: Patient high risk giving underlying IPF lung disease Recommend continued outpatient follow-up with pulmonary medicine Steroids as above (4) CAD (coronary artery disease): Continue home aspirin Qualifiers: Coronary Disease-Associated Artery/Lesion type: [place] artery [place] vs. transplanted heart: [place] heart Associated angina: without angina Qualified Code(s): I25.10 - Atherosclerotic heart disease of [place] coronary artery without angina pectoris (5) Hypertension: Continue home meds (6) Diabetes mellitus: Type 2 diabetes mellitus Appears diet controlled May develop steroid-induced hyperglycemia, monitoring Qualifiers: Diabetes mellitus type: type 2 Diabetes mellitus watermelon harvesting supervisor insulin use: with watermelon harvesting supervisor use Diabetes mellitus complication status: with kidney complications Diabetes mellitus complication detail: with chronic kidney disease Chronic kidney disease stage: stage 3 (moderate) Chronic kidney disease stage 3 subtype: stage 3b (GFR 30-44) Qualified Code(s): E11.22 - Type 2 diabetes mellitus with diabetic chronic kidney disease; N18.32 - Chronic kidney disease, stage 3b; Z79.4 - local intermodal truck driver (current) use of insulin (7) Hyperkalemia: Potassium remains elevated Kayexalate x 1 Repeat level in a.m. Cardiac monitoring Plan DVT prophylaxis: Lovenox CODE STATUS: Full code Attestations Medical Necessity Statement*: Patient requires ongoing hospitalization for IV antibiotics, IV steroids, breathing treatments, close monitoring and supportive care. Coding Level of Care Code Acute Code for [facility] Fwd Diagnoses Community acquired pneumonia, unspecified laterality J18.9 Laterality: unspecified laterality Centrilobular emphysema J43.2 COPD type: emphysema Emphysema type: centrilobular Interstitial pulmonary fibrosis J84.10 Coronary artery disease involving [place] coronary artery of [place] heart without angina pectoris I25.10 Coronary Disease-Associated Artery/Lesion type: [place] artery [place] vs. transplanted heart: [place] heart Associated angina: without angina Hypertension I10 Type 2 diabetes mellitus with stage 3b chronic kidney disease, with long-term current use of insulin E11.22; N18.32; Z79.4 Diabetes mellitus type: type 2 Diabetes mellitus watermelon harvesting supervisor insulin use: with watermelon harvesting supervisor use Diabetes mellitus complication status: with kidney complications Diabetes mellitus complication detail: with chronic kidney disease Chronic kidney disease stage: stage 3 (moderate) Chronic kidney disease stage 3 subtype: stage 3b (GFR 30-44) Hyperkalemia E87.5
[2023-11-13 16:48] LABS: Glucose Point of Care 290 mg/dL (70-110)
[2023-11-13] MEDS: morphine 4 mg/mL SDV 1 mL 2 MG IVP (17:09)
[2023-11-13] MEDS: insulin lispro 100 unit/1 mL SUBCUT ×2 (17:20→20:42)
[2023-11-13] MEDS: montelukast sodium 10 mg Tablet PO (20:42)
[2023-11-13] MEDS: atorvastatin 40 mg Tablet PO (20:42)
[2023-11-13 20:43] LABS: Glucose Point of Care 231 mg/dL (70-110)
[2023-11-13] MEDS: tamsulosin 0.4 mg Capsule 0.400000000000000022 MG PO (20:43)
[2023-11-13] MEDS: LORazepam 1 mg Tablet PO (22:36)
[2023-11-14] VITALS (13 sets, daily range): BP systolic 112–134; BP diastolic 61–80; PULSE 66–82; RESP 19–36; TEMP 36.3–36.6; O2SAT 83–95
[2023-11-14] MEDS: ipratropium-albuterol 3 mL Neb INHALATION ×6 (00:47→20:19)
[2023-11-14 05:21] LABS: Albumin Level 3.1 g/dL (3.5-5.2); Anion Gap 9.8 (5-19); Blood Urea Nitrogen 57 mg/dL (8-23); Calcium 8.5 mg/dL (8.5-10.5); Carbon Dioxide 36 mmol/L (22-29); Chloride 92 mmol/L (98-107); Creatinine Clr Calc Pharmacy 38.4937; Glomerular Filtration Rate 31.8 mL/min (90-130); Glucose 206 mg/dL (65-115); Magnesium 2.3 mg/dL (1.7-2.3); Phosphorus 3.5 mg/dL (2.5-4.5); Potassium 5.8 mmol/L (3.5-5.1); Sodium 132 mmol/L (136-145)
[2023-11-14 06:47] LABS: Glucose Point of Care 208 mg/dL (70-110)
[2023-11-14] MEDS: budesonide 0.5 mg/2 mL Neb 0.25 MG INHALATION ×2 (07:21→20:19)
[2023-11-14] MEDS: BuSPIRONE 10 mg Tablet PO ×3 (08:05→21:19)
[2023-11-14] MEDS: gabapentin 300 mg Capsule PO ×3 (08:05→21:19)
[2023-11-14] MEDS: pantoprazole DR 40 mg Tablet PO (08:05)
[2023-11-14] MEDS: aspirin 81 mg EC Tablet PO (08:05)
[2023-11-14] MEDS: sucralfate 1 gm Tablet PO ×2 (08:06→17:35)
[2023-11-14] MEDS: venlafaxine ER (24HR) 150 mg Capsule PO (08:06)
[2023-11-14] MEDS: metoprolol tartrate 25 mg Tablet PO ×2 (08:06→17:35)
[2023-11-14] MEDS: HYDROcodone-acetaminophen 5-325 mg Tablet 1 TAB PO ×4 (08:07→21:32)
[2023-11-14] MEDS: insulin lispro 100 unit/1 mL SUBCUT ×4 (08:07→21:20)
[2023-11-14] MEDS: cefTRIAXone 1,000 MG in sodium chloride 0.9% (plus) 50 ML 100 MG IV (08:08)
--- NOTE | 2023-11-14 08:46 | US_ITS ---
WS: [id number] RENAL ULTRASOUND HISTORY: ramy COMPARISON: None available. TECHNIQUE: 2-D and color Doppler imaging of the kidney submitted. Right kidney: 8.5 cm x 4.2 cm x 5.2 cm. Cortex: 1.0 cm Normal size kidney. Exophytic cyst from the lower pole measures 1.8 x 1.5 x 1.3 cm. No solid mass or obstruction. Left kidney: 9.0 cm x 4.1 cm x 5.0 cm. Cortex: 1.0 cm Normal echogenicity with no hydronephrosis or mass. Aorta: Normal. Urinary Bladder: Nondistended bladder. Akhtar catheter is present. IMPRESSION: 1. No change in either kidney since 05/10/2021. 2. RIGHT renal simple cyst. 3. No renal obstruction.
[2023-11-14 09:31] LABS: Cortisol Random 1.25 ug/dL (2.47-19.5)
[2023-11-14] MEDS: sodium polystyrene sulfonate 15 gm/60 mL Btl PO (09:39)
[2023-11-14] MEDS: azithromycin 500 MG in sodium chloride 0.9% 250 ML 250 MG IV (09:40)
[2023-11-14] MEDS: sennosides 8.6 mg Tablet 8.59999999999999964 MG PO (09:46)
[2023-11-14] MEDS: LORazepam 0.5 mg Tablet PO (09:47)
--- NOTE | 2023-11-14 11:01 | PC.CHAP ---
Pastoral Care Encounter/Spiritual Assessment Type of Contact [] Declined clinical engineer visit [] Patient/Family/Request visit [] Outpatient visit [] Follow-up visit [] Physician referral [] Code/Alert [x] Routine visit [] Staff referral [] Actively dying [] Patient sleeping [] Family support [] [] Out of room [] Palliative care [] [] Receiving care in room [] Pre-surgical visit [] Trauma [] Long length of stay [] ICU visit [] Other: precaution Relational/Emotional Strength [] Patient feels connected with others/family/visitors/staff [] Distress [] Loneliness/isolation [] Abandonment Spirituality of Patient [] Person of [place] [] Attends Yarsani of their [place] [] Believes in Prayer [] Reads Bible or Samaritan materials [] There are Spiritual issues to be addressed Flight Operations Manager Interventions [] Prayer [] Active listening [] Non-anxious presence [] Spiritual/emotional support [] Crisis/trauma care [] Spiritual counseling [] Bereavement support [] Provided bereavement packet [] Provided Bible/devotional materials [] Provided toy/stuffed animal, coloring book to patient or family member [] Provided Communion [] Anointing/[place] [] Salvation [] Completed spiritual assessment [] Other: Impact on Illness or Injury [] Angry [] Fearful [] Anxious [] Often cries [] Exhaustion [] Unable to work [] Unable to attend yarsani [] Unable to walk/stand [] Unable to read [] Unable to drive [] Unable to eat/drink [] Unable to sleep [] Unable to be with family [] Patient intubated [] Other: Summary Time spent with patient
[2023-11-14] MEDS: insulin regular-human 10 UNIT in SYRINGE 1 EACH 999 UNIT IVP (11:08)
[2023-11-14 11:17] LABS: Glucose Point of Care 162 mg/dL (70-110)
--- NOTE | 2023-11-14 11:20 | P.CONIM_ITS ---
Providers/Reason For Consult 2 Consulting Physician/Specialty*: [facility]/Nephrology Reason for Consult*: PRIYA , hyperkalemia Attending Physician: Luzma Blevins MD Primary Care Provider: Alfredito Muro DO History of Present Illness History of Present Illness Marlo Gleason is a 68 year old male Patient is a 68-year-old male with past medical history significant for chronic respiratory failure on 3 L O2 at baseline due to COPD, type 2 diabetes, coronary artery disease and was admitted to the hospital on 11/12/2023 due to progressively worsening shortness of breath. Chest x-ray showed infiltrates and he is diagnosed with pneumonia and was started on antibiotics. Akhtar catheter was placed in the ED as well. Patient also noted to have chronic kidney disease with a baseline creatinine in the mid 1 range now has an PRIYA with a creatinine of 2.1. Also has associated metabolic alkalosis and persistent hyperkalemia. Review of Systems 2 Narrative: per [facility] Medications/Allergies Home Medications Medication Instructions Recorded Confirmed Last Taken Type aspirin 81 mg tablet,delayed 81 mg PO DAILY 01/21/21 11/13/23 Unknown History release (Adult Low Dose Aspirin) atorvastatin 40 mg tablet 40 mg PO BEDTIME 01/21/21 11/13/23 Unknown History buspirone 10 mg tablet 10 mg PO TID 01/21/21 11/13/23 Unknown History ferrous sulfate 325 mg (65 mg 325 mg PO DAILY 01/21/21 11/13/23 Unknown History iron) tablet hydrocodone 5 mg-acetaminophen 325 1 tab PO Q8H PRN Moderate Pain 01/21/21 11/13/23 Unknown History mg tablet (Scale Score 5-6) tamsulosin 0.4 mg capsule 0.4 mg PO BEDTIME 01/21/21 11/13/23 Unknown History bisacodyl 10 mg rectal suppository 10 mg HI DAILY PRN Constipation 05/08/21 11/13/23 Unknown History sodium phosphates 19 gram-7 118 ml HI PRN PRN Constipation 05/08/21 11/13/23 Unknown History gram/118 mL enema (Enema Disposable) montelukast 10 mg tablet 10 mg PO BEDTIME 04/04/22 11/13/23 Unknown History benzonatate 100 mg capsule 100 mg PO TID PRN Cough #90 caps 04/09/22 11/13/23 Unknown Rx ipratropium bromide 0.02 % 2.5 ml inhalation QID 02/19/23 11/13/23 Unknown History solution for inhalation lorazepam 0.5 mg tablet 0.5 mg PO DAILY PRN Anxiety 03/26/23 11/13/23 Unknown History magnesium L-lactate 84 mg 84 mg PO DAILY 03/26/23 11/13/23 Unknown History tablet,extended release sucralfate 1 gram tablet 1 g PO BID 03/26/23 11/13/23 Unknown History venlafaxine 150 mg 150 mg PO DAILY 03/26/23 11/13/23 Unknown History capsule,extended release 24 hr albuterol sulfate 90 mcg/actuation 2 puff inhalation Q6H PRN 05/13/23 11/13/23 Unknown History aerosol inhaler Shortness Of Breath Or Wheezing gabapentin 300 mg capsule 300 mg PO TID 05/13/23 11/13/23 Unknown History magnesium hydroxide 400 mg/5 mL 15 ml PO DAILY PRN Constipation 05/13/23 11/13/23 Unknown History oral suspension (Milk of Magnesia) naloxone 4 mg/actuation nasal spray 1 spray intranasal Q1-2M PRN 05/13/23 11/13/23 Unknown History Opioid Overdose omeprazole 40 mg capsule,delayed 40 mg PO DAILY 05/13/23 11/13/23 Unknown History release sennosides 8.6 mg tablet 8.6 mg PO DAILY 05/13/23 11/13/23 Unknown History albuterol sulfate 2.5 mg/3 mL 2.5 mg (3 mL) inhalation Q4H 05/16/23 11/13/23 05/13/23 Rx (0.083 %) solution for nebulization shortness of breath #180 mL citalopram 10 mg tablet 40 mg (4 x 10 mg) PO DAILY #120 05/16/23 11/13/23 Unknown Rx tabs budesonide-formoterol HFA 160 2 puff inhalation BID #10.2 grams 08/29/23 11/13/23 Unknown Rx mcg-4.5 mcg/actuation aerosol inhaler (Symbicort) acetaminophen 325 mg tablet 650 mg PO QID PRN Pain 11/13/23 11/13/23 Unknown History hydrocortisone 1 % topical cream 1 applic topical TID PRN 11/13/23 11/13/23 Unknown History (Preparation H Hydrocortisone) Hemorrhoids insulin aspart U-100 100 unit/mL 10 unit SUBCUT TID 11/13/23 11/13/23 Unknown History (3 mL) subcutaneous pen (Novolog FlexPen U-100 Insulin aspart) insulin glargine 100 unit/mL (3 30 unit SUBCUT BEDTIME 11/13/23 11/13/23 Unknown History mL) subcutaneous pen (Basaglar KwikPen U-100 Insulin) Allergies Allergy/AdvReac Type Severity Reaction Status Date / Time No Known Allergies Allergy Verified 11/12/23 15:07 Current Medications Generic Name Dose Route Start Last Admin Trade Name Freq PRN Reason Stop Dose Admin Hydrocodone Bitart/Acetaminophen 1 tab 11/12/23 18:05 11/14/23 08:07 Hydrocodone-Acetaminophen 5-325 Mg Tablet PO 1 tab Q4H PRN Administration MODERATE TO SEVERE PAIN Albuterol/Ipratropium 3 ml 11/13/23 00:00 11/14/23 07:21 Ipratropium-Albuterol 3 Ml Neb INHALATION 3 ml Q4H.RESPIRATORY DAYSI Administration Aspirin 81 mg 11/13/23 09:00 11/14/23 08:05 Aspirin 81 Mg Ec Tablet PO 81 mg DAILY DAYSI Administration Atorvastatin Calcium 40 mg 11/12/23 21:00 11/13/23 20:42 Atorvastatin 40 Mg Tablet PO 40 mg BEDTIME DAYSI Administration Budesonide 0.25 mg 11/13/23 08:00 11/14/23 07:21 Budesonide 0.5 Mg/2 Ml Neb INHALATION 0.25 mg BID.RESPIRATORY DAYSI Administration Buspirone HCl 10 mg 11/12/23 21:00 11/14/23 08:05 Buspirone 10 Mg Tablet PO 10 mg TID DAYSI Administration Gabapentin 300 mg 11/12/23 21:00 11/14/23 08:05 Gabapentin 300 Mg Capsule PO 300 mg TID DAYSI Administration Ceftriaxone Sodium 1,000 mg/ 50 mls @ 100 mls/hr 11/13/23 09:00 11/14/23 10:33 Sodium Chloride IV Infused DAILY DAYSI Infusion Protocol Azithromycin 500 mg/ Sodium 250 mls @ 250 mls/hr 11/13/23 09:00 11/14/23 10:44 Chloride IV 11/15/23 09:59 Infused DAILY DAYSI Infusion Protocol Insulin Human Lispro 0 unit 11/13/23 18:00 11/14/23 08:07 Insulin Lispro 100 Unit/1 Ml SUBCUT 6 unit WM&BEDTIME DAYSI Administration Protocol Lorazepam 0.5 mg 11/12/23 18:05 11/14/23 09:47 Lorazepam 0.5 Mg Tablet PO 0.5 mg DAILY PRN Administration Anxiety Metoprolol Tartrate 25 mg 11/12/23 18:05 11/14/23 08:06 Metoprolol Tartrate 25 Mg Tablet PO 25 mg BID DAYSI Administration Montelukast Sodium 10 mg 11/12/23 21:00 11/13/23 20:42 Montelukast Sodium 10 Mg Tablet PO 10 mg BEDTIME DYASI Administration Ondansetron HCl 4 mg 11/12/23 18:05 11/13/23 11:13 Ondansetron 2 Mg/Ml Sdv 2 Ml IVP 4 mg Q6H PRN Administration NAUSEA AND VOMITING Pantoprazole Sodium 40 mg 11/13/23 09:00 11/14/23 08:[address] 40 Mg Tablet PO 40 mg DAILY DAYSI Administration Senna 8.6 mg 11/13/23 09:00 11/14/23 09:46 Sennosides 8.6 Mg Tablet PO 8.6 mg DAILY DAYSI Administration Sucralfate 1 gm 11/12/23 18:05 11/14/23 08:06 Sucralfate 1 Gm Tablet PO 1 gm BID DAYSI Administration Tamsulosin HCl 0.4 mg 11/12/23 21:00 11/13/23 20:43 Tamsulosin 0.4 Mg Capsule PO 0.4 mg BEDTIME DAYSI Administration Venlafaxine HCl 150 mg 11/13/23 09:00 11/14/23 08:06 Venlafaxine Er (24hr) 150 Mg Capsule PO 150 mg DAILY DAYSI Administration PFSH Acute 2 PFSH: Medical History Hyperkalemia Hospital discharge follow-up Acute respiratory failure due to COVID-19 Encounter for screening for lung cancer Exertional dyspnea Encounter for smoking cessation counseling COPD (chronic obstructive pulmonary disease) MRSA carrier Centrilobular emphysema Hypoxia Type 2 diabetes mellitus COVID-19 Positive DENY (antinuclear antibody) COVID-19 vaccine dose not administered Pneumonia CAD (coronary artery disease) Prostatic hypertrophy On home oxygen therapy Usually on 2 L by nasal cannula Skin cancer Specific type unknown PVD (peripheral vascular disease) Gout CKD (chronic kidney disease) GERD (gastroesophageal reflux disease) Hypertension Diabetes mellitus Mediastinal adenopathy Anxiety disorder Tobacco use Surgical History History of cholecystectomy History of coronary artery stent placement X2 History of skin surgery Left neck for skin cancer Presence of coronary angioplasty implant and graft Family History Mother Cancer Father CAD (coronary artery disease) Social History Smoking and tobacco/nicotine status: former use of tobacco/nicotine Quit status (tobacco/nicotine): has quit using Year quit tobacco: 2022 Former quit date comment: 2 ppd X 60 years Second hand smoke exposure: Yes Alcohol intake: former Substance/Drug Use: never Caregiver/support person: Yes Lives independently: No Housing: [facility] Marital status: / service: No Current occupational status: disabled Pets and animals: Yes Do you think of yourself as: Straight/Heterosexual Current gender identity: Male Vitals/I&O/Wt Last Vital Signs Temp 97.7 F 11/14/23 11:18 Pulse 78 11/14/23 11:18 Resp 20 H 11/14/23 11:18 BP 134/67 11/14/23 11:18 Pulse Ox 91 11/14/23 11:18 O2 Del Method Nasal Cannula 11/14/23 11:18 O2 Flow Rate 3 11/14/23 07:30 11/13/23 11/14/23 11/14/23 22:59 06:59 14:59 Intake Total 480 / 1140.000 348 / 348 Output Total 400 / 400 700 / 1100 Balance 80 / 740.000 -700 / 40.000 348 / 348 Weight last 48 hrs Weight 94.03 kg Weight 93.638 kg Weight 94.302 kg Weight 90.718 kg Physical Exam 2 Narrative: awake , alert HEENT No edema Urinary Catheter Management: Akhtar: Cath Placed During This Visit: yes Urinary Catheter Date of Insertion: 11/12/23 Urinary Catheter Time of Insertion: 15:25 Data 11/13/23 00:54 11/14/23 04:41 Micro: Microbiology 11/12/23 16:12 Blood Culture - Preliminary Blood NEGATIVE TO DATE 11/12/23 16:05 Blood Culture - Preliminary Blood NEGATIVE TO DATE 11/13/23 13:45 Bacterial Antigens - Final Urine,Clean Catch A&P Assessment and plan (1) Hyperkalemia: (2) Acute on chronic renal failure: Plan 1. Acute on chronic kidney disease stage III: Baseline creatinine in the mid 1 range now has an PRIYA with a creatinine of 2.1 in the setting of acute infection. Possible ATN. Continue to monitor, no indication for dialysis, avoid IV contrast studies and nephrotoxins. Dose meds per GFR. Check renal ultrasound and urine electrolytes. 2. Hyperkalemia: Persistent:, Though hyperkalemia likely from PRIYA but noted to have chronic episodes where he had hyperkalemia and metabolic alkalosis. -Will check creatinine insufficiency-check cortisol levels aldosterone level and renin levels. -Will add low-dose fludrocortisone -Low potassium diet -K was medically managed today with insulin dextrose as well as Kayexalate, await repeat potassium this afternoon 3. Metabolic alkalosis, patient has chronic respiratory acidosis due to chronic respiratory failure/COPD-his metabolic alkalosis is likely compensatory. 4. Acute on chronic respiratory failure: COPD and has pneumonia, EF 55 to 60% on prior echo Patient evaluated using audiovisual cart. Time spent 40 minutes Consult Attestations 2 Medical Necessity Statement: per bruno Coding Level of Care Code Acute Code for g Fwd Diagnoses Hyperkalemia E87.5 Acute on chronic renal failure N17.9; N18.9
[2023-11-14] MEDS: calcium gluconate 0.9% NaCL 1 GM/50 ML PREMIX IV (11:27)
[2023-11-14 12:28] LABS: Urine Random Chloride 15 mmol/L; Urine Random Sodium 18 mmol/L
--- NOTE | 2023-11-14 13:32 | P.PN_ITS ---
Subjective 2 Subjective: K noted at 5.8 this morning seen this morning Vitals/I&O/Wt Last Vital Signs Temp 97.7 F 11/14/23 11:18 Pulse 78 11/14/23 12:03 Resp 20 H 11/14/23 12:03 BP 134/67 11/14/23 11:18 Pulse Ox 93 11/14/23 12:03 O2 Del Method Nasal Cannula 11/14/23 12:03 O2 Flow Rate 3 11/14/23 12:03 11/13/23 11/14/23 11/14/23 22:59 06:59 14:59 Intake Total 480 / 1140.000 398.1 / 398.1 Output Total 400 / 400 700 / 1100 800 / 800 Balance 80 / 740.000 -700 / 40.000 -401.9 / -401.9 Weight last 48 hrs Weight 94.03 kg Weight 93.638 kg Weight 94.302 kg Weight 90.718 kg Physical Exam 2 Narrative: General: Patient is awake. Ill-appearing. Conversational. Cardiovascular: RRR. No gallops. No murmurs. Lungs: Breath sounds decreased in bilateral bases. Persistent bilateral rhonchi present. Faint end expiratory wheezing present. No rales. No crackles. Skin: No jaundice. No rashes. Abdomen: Normal bowel sounds, abdomen soft and nontender. Extremities: No cyanosis or clubbing. Urinary Catheter Management: Akhtar: Cath Placed During This Visit: yes Urinary Catheter Date of Insertion: 11/12/23 Urinary Catheter Time of Insertion: 15:25 Data 11/13/23 00:54 11/14/23 04:41 Micro: Microbiology 11/12/23 16:12 Blood Culture - Preliminary Blood NEGATIVE TO DATE 11/12/23 16:05 Blood Culture - Preliminary Blood NEGATIVE TO DATE 11/13/23 13:45 Bacterial Antigens - Final Urine,Clean Catch A&P Assessment and plan (1) Community acquired pneumonia: Community-acquired pneumonia complicated by parainfluenza infection Continue ceftriaxone azithromycin (11/12-present) Pulmonary toilet Continue Solu-Medrol q8H Nebulizing treatments Supportive care Qualifiers: Laterality: unspecified laterality Qualified Code(s): J18.9 - Pneumonia, unspecified organism (2) COPD (chronic obstructive pulmonary disease): Acute COPD exacerbation with chronic hypoxic respiratory failure Management as above Qualifiers: COPD type: emphysema Emphysema type: centrilobular Qualified Code(s): J43.2 - Centrilobular emphysema (3) Interstitial pulmonary fibrosis: Patient high risk giving underlying IPF lung disease Recommend continued outpatient follow-up with pulmonary medicine Steroids as above (4) CAD (coronary artery disease): Continue home aspirin Qualifiers: Coronary Disease-Associated Artery/Lesion type: [place] artery [place] vs. transplanted heart: ch[place]koot heart Associated angina: without angina Qualified Code(s): I25.10 - Atherosclerotic heart disease of [place] coronary artery without angina pectoris (5) Hypertension: Continue home meds (6) Diabetes mellitus: Type 2 diabetes mellitus Appears diet controlled May develop steroid-induced hyperglycemia, monitoring Qualifiers: Diabetes mellitus type: type 2 Diabetes mellitus long term care phlebotomist insulin use: with [facility] use Diabetes mellitus complication status: with kidney complications Diabetes mellitus complication detail: with chronic kidney disease Chronic kidney disease stage: stage 3 (moderate) Chronic kidney disease stage 3 subtype: stage 3b (GFR 30-44) Qualified Code(s): E11.22 - Type 2 diabetes mellitus with diabetic chronic kidney disease; N18.32 - Chronic kidney disease, stage 3b; Z79.4 - terminal 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 Cardiac monitoring check cortisol check renin aldosterone levels check UA Consult nephrology repeat postassium in afternoon. Plan DVT prophylaxis: Lovenox CODE STATUS: Full code Attestations 2 Medical Necessity Statement*: continue to manage persistent hyperkalemia and COPD exacerbation with pneumonia Diagnoses Community acquired pneumonia, unspecified laterality J18.9 Laterality: unspecified laterality Centrilobular emphysema J43.2 COPD type: emphysema Emphysema type: centrilobular Interstitial pulmonary fibrosis J84.10 Coronary artery disease involving [place] coronary artery of [place] heart without angina pectoris I25.10 Coronary Disease-Associated Artery/Lesion type: [place] artery [place] vs. transplanted heart: ch[place] heart Associated angina: without angina Hypertension I10 Type 2 diabetes mellitus with stage 3b chronic kidney disease, with long-term current use of insulin E11.22; N18.32; Z79.4 Diabetes mellitus type: type 2 Diabetes mellitus [facility] insulin use: with long term care phlebotomist use Diabetes mellitus complication status: with kidney complications Diabetes mellitus complication detail: with chronic kidney disease Chronic kidney disease stage: stage 3 (moderate) Chronic kidney disease stage 3 subtype: stage 3b (GFR 30-44) Hyperkalemia E87.5
[2023-11-14] MEDS: methylPREDNISolone sod succ 40 mg/mL INJ IVP ×2 (14:00→23:05)
[2023-11-14 16:24] LABS: Glucose Point of Care 207 mg/dL (70-110)
[2023-11-14 16:46] LABS: Blood Urea Nitrogen 54 mg/dL (8-23); Calcium 8.4 mg/dL (8.5-10.5); Carbon Dioxide 35 mmol/L (22-29); Chloride 92 mmol/L (98-107); Creatinine Clr Calc Pharmacy 42.5457; Glomerular Filtration Rate 35.6 mL/min (90-130); Glucose 181 mg/dL (65-115); Osmolality Calculated 295 mOsm/kg (285-295); Sodium 133 mmol/L (136-145)
[2023-11-14 20:57] LABS: Glucose Point of Care 337 mg/dL (70-110)
[2023-11-14] MEDS: montelukast sodium 10 mg Tablet PO (21:19)
[2023-11-14] MEDS: atorvastatin 40 mg Tablet PO (21:19)
[2023-11-14] MEDS: tamsulosin 0.4 mg Capsule 0.400000000000000022 MG PO (21:20)
[2023-11-14] MEDS: trazodone 50 mg Tablet 25 MG PO (23:05)
[2023-11-15] VITALS (15 sets, daily range): BP systolic 123–163; BP diastolic 63–82; PULSE 62–76; RESP 18–38; TEMP 36.4–36.8; O2SAT 94–99
[2023-11-15] MEDS: ipratropium-albuterol 3 mL Neb INHALATION ×6 (00:37→20:35)
[2023-11-15 06:01] LABS: Basophils % 0.3 %; Eosinophils % 0.1 %; Hematocrit 45.5 % (37-53); Lymphocytes # 1.2 10^3/uL (0.8-4.8); Lymphocytes % 15.2 %; Mean Corpuscular Hemoglobin 22.6 pg (27-33); Mean Corpuscular Volume 77.9 fl (82-101); Mean Platelet Volume 9.1 fL (7.4-10.4); Monocytes # 0.1 10^3/uL (0.2-0.9); Monocytes % 1.7 %; Neutrophils # 6.15 10^3/uL (1.8-7.7); Neutrophils % 81.2 %; Nucleated Red Blood Cells % 0 %; Platelet Count 351 10^3/cmm (157-399); Red Blood Count 5.84 10^6/uL (3.85-5.65); Red Cell Distribution Width 16.7 % (12.1-15.1); White Blood Count 7.57 10^3/uL (3.29-11.43)
[2023-11-15 06:20] LABS: Alanine Aminotransferase 17 U/L (0-41); Albumin Level 3.4 g/dL (3.5-5.2); Alkaline Phosphatase 95 U/L (40-130); Aspartate Amino Transferase 20 U/L (0-40); Blood Urea Nitrogen 52 mg/dL (8-23); Calcium 8.9 mg/dL (8.5-10.5); Carbon Dioxide 35 mmol/L (22-29); Chloride 91 mmol/L (98-107); Creatinine Clr Calc Pharmacy 47.0135; Globulin 4.9 g/dL (1.3-4.6); Glomerular Filtration Rate 40.5 mL/min (90-130); Glucose 324 mg/dL (65-115); Magnesium 2.3 mg/dL (1.7-2.3); Osmolality Calculated 307 mOsm/kg (285-295); Sodium 135 mmol/L (136-145); Total Bilirubin 0.2 mg/dL (0.15-1.2); Total Protein 8.3 g/dL (6.6-8.7)
[2023-11-15] MEDS: methylPREDNISolone sod succ 40 mg/mL INJ IVP ×3 (06:26→23:15)
[2023-11-15 06:52] LABS: Glucose Point of Care 401 mg/dL (70-110)
[2023-11-15] MEDS: insulin lispro 100 unit/1 mL SUBCUT ×4 (07:36→21:29)
[2023-11-15] MEDS: cefTRIAXone 1,000 MG in sodium chloride 0.9% (plus) 50 ML 100 MG IV (07:37)
[2023-11-15] MEDS: budesonide 0.5 mg/2 mL Neb 0.25 MG INHALATION ×2 (08:09→20:35)
[2023-11-15] MEDS: azithromycin 500 MG in sodium chloride 0.9% 250 ML 250 MG IV (08:13)
[2023-11-15] MEDS: fludrocortisone 0.1 mg Tablet 0.100000000000000006 MG PO (08:19)
[2023-11-15] MEDS: venlafaxine ER (24HR) 150 mg Capsule PO (08:19)
[2023-11-15] MEDS: aspirin 81 mg EC Tablet PO (08:19)
[2023-11-15] MEDS: metoprolol tartrate 25 mg Tablet PO ×2 (08:19→17:28)
[2023-11-15] MEDS: FUROsemide 20 mg Tablet PO (08:20)
[2023-11-15] MEDS: sucralfate 1 gm Tablet PO ×2 (08:20→17:28)
[2023-11-15] MEDS: gabapentin 300 mg Capsule PO ×3 (08:20→21:31)
[2023-11-15] MEDS: pantoprazole DR 40 mg Tablet PO (08:20)
[2023-11-15] MEDS: BuSPIRONE 10 mg Tablet PO ×3 (08:20→21:31)
[2023-11-15] MEDS: sennosides 8.6 mg Tablet 8.59999999999999964 MG PO (08:20)
[2023-11-15] MEDS: HYDROcodone-acetaminophen 5-325 mg Tablet 1 TAB PO ×2 (08:21→17:30)
--- NOTE | 2023-11-15 09:04 | P.PN_ITS ---
Subjective 2 Subjective: on 3l NC Medications: Reviewed: Yes Vitals/I&O/Wt Last Vital Signs Temp 98.1 F 11/15/23 07:26 Pulse 68 11/15/23 08:20 Resp 20 H 11/15/23 08:10 BP 142/71 11/15/23 07:26 Pulse Ox 96 11/15/23 08:10 O2 Del Method Nasal Cannula 11/15/23 08:10 O2 Flow Rate 3 11/15/23 08:10 11/14/23 11/15/23 11/15/23 22:59 06:59 14:59 Intake Total 1078 / 1476.1 530 / 530 Output Total 1500 / 2300 1300 / 3600 Balance -422 / -823.9 -1300 / -2123.9 530 / 530 Weight last 48 hrs Weight 91.807 kg Weight 94.03 kg Physical Exam 2 Narrative: awake , alert HEENT No edema Urinary Catheter Management: Akhtar: Cath Placed During This Visit: yes Urinary Catheter Date of Insertion: 11/12/23 Urinary Catheter Time of Insertion: 15:25 Data 11/15/23 05:48 11/15/23 05:48 Micro: Microbiology 11/14/23 23:42 Gram Stain - Final Sputum - Expectorated Sputum A&P Assessment and plan (1) Hyperkalemia: (2) Acute on chronic renal failure: Plan 1. Acute on chronic kidney disease stage III: Baseline creatinine in the mid 1 range now has an PRIYA with a creatinine of 2.1 in the setting of acute infection. Possible ATN. Continue to monitor, no indication for dialysis, avoid IV contrast studies and nephrotoxins. Dose meds per GFR. Check renal ultrasound and urine electrolytes.Cr stable 2. Hyperkalemia: Persistent:, Though hyperkalemia likely from PRIYA but noted to have chronic episodes where he had hyperkalemia and metabolic alkalosis. -Will check for adrenal insufficiency-check cortisol levels aldosterone level and renin levels. -Will add low-dose fludrocortisone, resumed lasix 20 mg daily -Low potassium diet 3. Metabolic alkalosis, patient has chronic respiratory acidosis due to chronic respiratory failure/COPD-his metabolic alkalosis is likely compensatory. 4. Acute on chronic respiratory failure: COPD and has pneumonia, EF 55 to 60% on prior echo Patient evaluated using audiovisual cart. Time spent 40 minutes Attestations 2 Medical Necessity Statement*: per bruno Coding Level of Care Code Acute Code for Chg Fwd Diagnoses Hyperkalemia E87.5 Acute on chronic renal failure N17.9; N18.9
[2023-11-15] MEDS: insulin glargine 100 units/1 mL 30 UNIT SUBCUT ×2 (10:02→21:28)
[2023-11-15 11:09] LABS: Glucose Point of Care 325 mg/dL (70-110)
--- NOTE | 2023-11-15 12:49 | PM.PN ---
Subjective Subjective: Seen today. Potassium is 5.0. Creatinine 1.7. Says he feels the same as before and is still short of breath. Vitals/I&O/Wt Last Vital Signs Temp 98.2 F 11/15/23 11:13 Pulse 63 11/15/23 11:21 Resp 22 H 11/15/23 11:21 BP 162/82 11/15/23 11:13 Pulse Ox 95 11/15/23 11:21 O2 Del Method Nasal Cannula 11/15/23 11:21 O2 Flow Rate 3 11/15/23 11:21 11/14/23 11/15/23 11/15/23 22:59 06:59 14:59 Intake Total 1078 / 1476.1 1020 / 1020 Output Total 1500 / 2300 1300 / 3600 Balance -422 / -823.9 -1300 / -2123.9 1020 / 1020 Weight last 48 hrs Weight 91.807 kg Weight 94.03 kg Physical Exam Narrative: General: Patient is awake. Ill-appearing. Conversational. Cardiovascular: RRR. No gallops. No murmurs. Lungs: Breath sounds decreased in bilateral bases. Persistent bilateral rhonchi present. Faint end expiratory wheezing present. No rales. No crackles. Skin: No jaundice. No rashes. Abdomen: Normal bowel sounds, abdomen soft and nontender. Extremities: No cyanosis or clubbing. Urinary Catheter Management: Akhtar: Cath Placed During This Visit: yes Urinary Catheter Date of Insertion: 11/12/23 Urinary Catheter Time of Insertion: 15:25 Data 11/15/23 05:48 11/15/23 05:48 Micro: Microbiology 11/14/23 23:42 Gram Stain - Final Sputum - Expectorated Sputum A&P Assessment and plan (1) Community acquired pneumonia: Community-acquired pneumonia complicated by parainfluenza infection Continue ceftriaxone azithromycin (11/12-present) Pulmonary toilet Continue Solu-Medrol q8H Nebulizing treatments Supportive care Qualifiers: Laterality: unspecified laterality Qualified Code(s): J18.9 - Pneumonia, unspecified organism (2) COPD (chronic obstructive pulmonary disease): Acute COPD exacerbation with chronic hypoxic respiratory failure Management as above Qualifiers: COPD type: emphysema Emphysema type: centrilobular Qualified Code(s): J43.2 - Centrilobular emphysema (3) Interstitial pulmonary fibrosis: Patient high risk giving underlying IPF lung disease Recommend continued outpatient follow-up with pulmonary medicine Steroids as above (4) CAD (coronary artery disease): Continue home aspirin Qualifiers: Coronary Disease-Associated Artery/Lesion type: [place] artery [place] vs. transplanted heart: [place] heart Associated angina: without angina Qualified Code(s): I25.10 - Atherosclerotic heart disease of [place] coronary artery without angina pectoris (5) Hypertension: Continue home meds (6) Diabetes mellitus: Type 2 diabetes mellitus Appears diet controlled May develop steroid-induced hyperglycemia, monitoring Qualifiers: Diabetes mellitus type: type 2 Diabetes mellitus [facility] insulin use: with termite control service representative use Diabetes mellitus complication status: with kidney complications Diabetes mellitus complication detail: with chronic kidney disease Chronic kidney disease stage: stage 3 (moderate) Chronic kidney disease stage 3 subtype: stage 3b (GFR 30-44) Qualified Code(s): E11.22 - Type 2 diabetes mellitus with diabetic chronic kidney disease; N18.32 - Chronic kidney disease, stage 3b; Z79.4 - terminal worker (current) use of insulin (7) Hyperkalemia: Potassium remains elevated Kayexalate x 1, insulin dextrose calcium gluconate and kayexalate to be given Repeat level in a.m. Cardiac monitoring check cortisol check renin aldosterone levels check UA Consult nephrology repeat postassium in afternoon. Plan DVT prophylaxis: Lovenox CODE STATUS: Full code Due to patient's lack improvement over hospital course I will go ahead and order a chest CT today. Attestations Medical Necessity Statement*: continue to manage persistent hyperkalemia and COPD exacerbation with pneumonia Diagnoses Community acquired pneumonia, unspecified laterality J18.9 Laterality: unspecified laterality Centrilobular emphysema J43.2 COPD type: emphysema Emphysema type: centrilobular Interstitial pulmonary fibrosis J84.10 Coronary artery disease involving [place] coronary artery of [place] heart without angina pectoris I25.10 Coronary Disease-Associated Artery/Lesion type: [place] artery [place] vs. transplanted heart: [place] heart Associated angina: without angina Hypertension I10 Type 2 diabetes mellitus with stage 3b chronic kidney disease, with long-term current use of insulin E11.22; N18.32; Z79.4 Diabetes mellitus type: type 2 Diabetes mellitus [facility] insulin use: with termite control service representative use Diabetes mellitus complication status: with kidney complications Diabetes mellitus complication detail: with chronic kidney disease Chronic kidney disease stage: stage 3 (moderate) Chronic kidney disease stage 3 subtype: stage 3b (GFR 30-44) Hyperkalemia E87.5
--- NOTE | 2023-11-15 12:52 | CT_ITS ---
WS: [id number] CT chest wo con [id number] HISTORY: shortness of breath TECHNIQUE: Axial imaging performed through the thorax. Coronal and sagittal reformats are submitted. All CT scans at [facility] use at least one of these dose optimization techniques: automated exposure control; mA and/or kV adjustment per patient size (includes targeted exams where dose is mat ched to clinical indication); or iterative reconstruction. CONTRAST: None DLP: 576.67 mGy.cm COMPARISON: 05/13/2023 Lungs and central airway: Severe emphysema and interstitial lung disease. Bullous and bleb formations . No discrete mass or nodule or pneumonia. Although this is not a high-resolution CT I suspect there is honeycombing and traction bronchiectasis at the lung bases. Focal area of rounded atelectasis is a lso noted at the lung bases which is similar to the prior study. Pleura: Mild pleural thickening with no effusion. Heart and pericardium: Normal size heart with no pericardial effusion. Mediastinum and marissa: Small mediastinal and hilar lymph nodes. These lymph nodes have been present si nce 05/13/2023 without increase in size or number. Vessels: Atherosclerosis aorta. Mild pulmonary enlargement. Chest wall and lower neck: No soft tissue masses. Upper abdomen: Prior cholecystectomy. No adrenal mass. Visualized pancreas is fatty replaced. Osseous structures: No destructive process. IMPRESSION: 1. No pneumonia. 2. Severe emphysematous lung disease. 3. Although the study was not performed as a high-resolution evaluation there does appear to be bron chiectasis and honeycombing at the lung bases. Component of UIP suspected on chronic lung disease of emphysema. 4. No pneumonia. 5. Mildly prominent, reactive mediastinal and hilar lymph nodes unchanged. 6. Prior cholecystectomy.
[2023-11-15 13:41] LABS: D Dimer 0.33 ug/mLFEU (0-0.59)
[2023-11-15 16:50] LABS: Glucose Point of Care 196 mg/dL (70-110)
[2023-11-15 21:01] LABS: Glucose Point of Care 315 mg/dL (70-110)
[2023-11-15] MEDS: atorvastatin 40 mg Tablet PO (21:29)
[2023-11-15] MEDS: montelukast sodium 10 mg Tablet PO (21:29)
[2023-11-15] MEDS: tamsulosin 0.4 mg Capsule 0.400000000000000022 MG PO (21:30)
[2023-11-15] MEDS: trazodone 50 mg Tablet 25 MG PO (21:31)
[2023-11-15] MEDS: acetaminophen 325 mg Tablet 650 MG PO (22:29)
[2023-11-16] VITALS (18 sets, daily range): BP systolic 128–163; BP diastolic 69–87; PULSE 62–83; RESP 16–20; TEMP 36.4–37; O2SAT 93–98
[2023-11-16] MEDS: ipratropium-albuterol 3 mL Neb INHALATION ×6 (00:12→20:46)
[2023-11-16] MEDS: HYDROcodone-acetaminophen 5-325 mg Tablet 1 TAB PO (03:31)
[2023-11-16 06:00] LABS: Basophils % 0.2 %; Hematocrit 43.7 % (37-53); Lymphocytes # 1.4 10^3/uL (0.8-4.8); Lymphocytes % 11.2 %; Mean Corpuscular HGB Conc 29.7 g/dL (30-55); Mean Corpuscular Hemoglobin 22.9 pg (27-33); Mean Corpuscular Volume 76.9 fl (82-101); Mean Platelet Volume 9.4 fL (7.4-10.4); Monocytes # 0.5 10^3/uL (0.2-0.9); Monocytes % 3.7 %; Neutrophils # 10.62 10^3/uL (1.8-7.7); Neutrophils % 83.3 %; Nucleated Red Blood Cells % 0 %; Platelet Count 353 10^3/cmm (157-399); Red Blood Count 5.68 10^6/uL (3.85-5.65); Red Cell Distribution Width 16.3 % (12.1-15.1); White Blood Count 12.76 10^3/uL (3.29-11.43)
[2023-11-16 06:27] LABS: Anion Gap 11.4 (5-19); Blood Urea Nitrogen 45 mg/dL (8-23); Calcium 9.2 mg/dL (8.5-10.5); Carbon Dioxide 38 mmol/L (22-29); Chloride 93 mmol/L (98-107); Creatinine Clr Calc Pharmacy 49.9053; Glomerular Filtration Rate 43.5 mL/min (90-130); Glucose 302 mg/dL (65-115); Magnesium 1.8 mg/dL (1.7-2.3); Osmolality Calculated 307 mOsm/kg (285-295); Potassium 5.4 mmol/L (3.5-5.1); Sodium 137 mmol/L (136-145)
[2023-11-16 06:28] LABS: Slide Review Slide Review Perform
[2023-11-16 06:37] LABS: Glucose Point of Care 376 mg/dL (70-110)
[2023-11-16] MEDS: methylPREDNISolone sod succ 40 mg/mL INJ IVP (06:44)
[2023-11-16] MEDS: pantoprazole DR 40 mg Tablet PO (08:28)
[2023-11-16] MEDS: aspirin 81 mg EC Tablet PO (08:28)
[2023-11-16] MEDS: sucralfate 1 gm Tablet PO ×2 (08:28→17:14)
[2023-11-16] MEDS: metoprolol tartrate 25 mg Tablet PO ×2 (08:28→17:14)
[2023-11-16] MEDS: FUROsemide 20 mg Tablet PO (08:28)
[2023-11-16] MEDS: venlafaxine ER (24HR) 150 mg Capsule PO (08:28)
[2023-11-16] MEDS: gabapentin 300 mg Capsule PO ×3 (08:28→21:54)
[2023-11-16] MEDS: BuSPIRONE 10 mg Tablet PO ×3 (08:28→21:54)
[2023-11-16] MEDS: sodium polystyrene sulfonate 15 gm/60 mL Btl 30 GM PO (08:34)
[2023-11-16] MEDS: insulin lispro 100 unit/1 mL SUBCUT ×4 (08:35→21:54)
[2023-11-16] MEDS: budesonide 0.5 mg/2 mL Neb 0.25 MG INHALATION ×2 (08:35→20:46)
[2023-11-16] MEDS: cefTRIAXone 1,000 MG in sodium chloride 0.9% (plus) 50 ML 100 MG IV (08:35)
[2023-11-16] MEDS: fludrocortisone 0.1 mg Tablet 0.200000000000000011 MG PO (08:36)
[2023-11-16] MEDS: sennosides 8.6 mg Tablet 8.59999999999999964 MG PO (08:36)
--- NOTE | 2023-11-16 10:16 | P.PN_ITS ---
Subjective 2 Subjective: seen this am patient still very symptomatic he is short of breath on exertion o2 at 3.5L has a productive cough of clear sputum Vitals/I&O/Wt Last Vital Signs Temp 98.1 F 11/16/23 07:15 Pulse 83 11/16/23 08:44 Resp 16 11/16/23 08:34 BP 144/82 11/16/23 07:15 Pulse Ox 97 11/16/23 08:34 O2 Del Method Nasal Cannula 11/16/23 08:34 O2 Flow Rate 3.5 11/16/23 08:34 11/15/23 11/16/23 11/16/23 22:59 06:59 14:59 Intake Total 342 / 1362 480 / 1842 650 / 650 Output Total 1750 / 1750 2300 / 4050 800 / 800 Balance -1408 / -388 -1820 / -2208 -150 / -150 Weight last 48 hrs Weight 91.626 kg Weight 91.807 kg Physical Exam 2 Narrative: General: Patient is awake. Ill-appearing. Conversational. Cardiovascular: RRR. No gallops. No murmurs. Lungs: Breath sounds decreased in bilateral bases. Persistent bilateral rhonchi present. Faint end expiratory wheezing present. No rales. No crackles. Skin: No jaundice. No rashes. Abdomen: Normal bowel sounds, abdomen soft and nontender. Extremities: No cyanosis or clubbing. Urinary Catheter Management: Akhtar: Cath Placed During This Visit: yes Urinary Catheter Date of Insertion: 11/12/23 Urinary Catheter Time of Insertion: 15:25 Data 11/16/23 05:36 11/16/23 05:36 Micro: Microbiology 11/14/23 23:42 Gram Stain - Final Sputum - Expectorated Sputum A&P Assessment and plan (1) Community acquired pneumonia: Community-acquired pneumonia complicated by parainfluenza infection Continue ceftriaxone azithromycin (11/12-present) Pulmonary toilet Continue Solu-Medrol q8H Nebulizing treatments Supportive care Qualifiers: Laterality: unspecified laterality Qualified Code(s): J18.9 - Pneumonia, unspecified organism (2) COPD (chronic obstructive pulmonary disease): Acute COPD exacerbation with chronic hypoxic respiratory failure Management as above Qualifiers: COPD type: emphysema Emphysema type: centrilobular Qualified Code(s): J43.2 - Centrilobular emphysema (3) Interstitial pulmonary fibrosis: Patient high risk giving underlying IPF lung disease Recommend continued outpatient follow-up with pulmonary medicine Steroids as above (4) CAD (coronary artery disease): Continue home aspirin Qualifiers: Coronary Disease-Associated Artery/Lesion type: [place] artery [place] vs. transplanted heart: [place] heart Associated angina: without angina Qualified Code(s): I25.10 - Atherosclerotic heart disease of [place] coronary artery without angina pectoris (5) Hypertension: Continue home meds (6) Diabetes mellitus: Type 2 diabetes mellitus Appears diet controlled May develop steroid-induced hyperglycemia, monitoring Qualifiers: Diabetes mellitus type: type 2 Diabetes mellitus intermodal customer service insulin use: with intermodal customer service use Diabetes mellitus complication status: with kidney complications Diabetes mellitus complication detail: with chronic kidney disease Chronic kidney disease stage: stage 3 (moderate) Chronic kidney disease stage 3 subtype: stage 3b (GFR 30-44) Qualified Code(s): E11.22 - Type 2 diabetes mellitus with diabetic chronic kidney disease; N18.32 - Chronic kidney disease, stage 3b; Z79.4 - retirement (current) use of insulin (7) Hyperkalemia: K 5.4 today workup pending nephrology following cr 1.6 today. pt at baseline Plan DVT prophylaxis: Lovenox CODE STATUS: Full code Todays plan 11/16/2026 CT chest shows chronic emphysema with componenet of interstitial lung disease reviewed his pulmonology notes patient's FEV1 is 32% of predicted He has been started on perforomist, yupelri and pulmicort nebulization as outpatient i will add azithromycin MWF I have escalated steroids to solu medrol 60 Q8 hours today Patient is not a candidate for roflumilast He will need a prolonged prednisone taper with perforomist, yupelri and pulmicort nebulization as outpatient. After prednisone taper completes, he will be placed on prednisone 5 mg bid indefinately. He will be appropriate candidate for hospice for end stage emphysema. I will discuss with patient I will discontinue ceftriaxone at this time I discussed with patient's senior specialist as well. Patient may be able to discharge from pulm standpoint in AM CKD At baseline Cr. 1.6 at this time. Leukocytosis - no evidence of infection - most likely reactive 2/2 to steroid use HYperkalemia - continue low potassium diet - avoid medications that cause hyperK - Will give another dose kayexalate 15 g today. Attestations 2 Medical Necessity Statement*: PLan for dc in am Diagnoses Community acquired pneumonia, unspecified laterality J18.9 Laterality: unspecified laterality Centrilobular emphysema J43.2 COPD type: emphysema Emphysema type: centrilobular Interstitial pulmonary fibrosis J84.10 Coronary artery disease involving [place] coronary artery of [place] heart without angina pectoris I25.10 Coronary Disease-Associated Artery/Lesion type: [place] artery [place] vs. transplanted heart: [place] heart Associated angina: without angina Hypertension I10 Type 2 diabetes mellitus with stage 3b chronic kidney disease, with long-term current use of insulin E11.22; N18.32; Z79.4 Diabetes mellitus type: type 2 Diabetes mellitus intermodal customer service insulin use: with intermodal customer service use Diabetes mellitus complication status: with kidney complications Diabetes mellitus complication detail: with chronic kidney disease Chronic kidney disease stage: stage 3 (moderate) Chronic kidney disease stage 3 subtype: stage 3b (GFR 30-44) Hyperkalemia E87.5
--- NOTE | 2023-11-16 11:25 | PM.PN ---
Subjective Subjective: denies any complaints on 3l NC Medications: Reviewed: Yes Vitals/I&O/Wt Last Vital Signs Temp 97.6 F 11/16/23 11:17 Pulse 78 11/16/23 11:17 Resp 18 11/16/23 11:17 BP 150/87 11/16/23 11:17 Pulse Ox 93 11/16/23 11:17 O2 Del Method Nasal Cannula 11/16/23 11:17 O2 Flow Rate 3 11/16/23 11:10 11/15/23 11/16/23 11/16/23 22:59 06:59 14:59 Intake Total 342 / 1362 480 / 1842 650 / 650 Output Total 1750 / 1750 2300 / 4050 800 / 800 Balance -1408 / -388 -1820 / -2208 -150 / -150 Weight last 48 hrs Weight 91.626 kg Weight 91.807 kg Physical Exam Narrative: awake , alert HEENT No edema Urinary Catheter Management: Akhtar: Cath Placed During This Visit: yes Urinary Catheter Date of Insertion: 11/12/23 Urinary Catheter Time of Insertion: 15:25 Data 11/16/23 05:36 11/16/23 05:36 Micro: Microbiology 11/14/23 23:42 Gram Stain - Final Sputum - Expectorated Sputum A&P Assessment and plan (1) Hyperkalemia: (2) Acute on chronic renal failure: Plan 1. Acute on chronic kidney disease stage III: Baseline creatinine in the mid 1 range now has an PRIYA with a creatinine of 2.1 in the setting of acute infection. Possible ATN. Continue to monitor, no indication for dialysis, avoid IV contrast studies and nephrotoxins. Dose meds per GFR. Cr stable 2. Hyperkalemia: Persistent:, Though hyperkalemia likely from PRIYA but noted to have chronic episodes where he had hyperkalemia and metabolic alkalosis. -Will check for adrenal insufficiency-low cortisol levelsnoted , aldosterone level and renin levels-- pending -added fludrocortisone, resumed lasix 20 mg daily , plan to DC on slow steroid taper and f/u Endocrinology as out pt -Low potassium diet 3. Metabolic alkalosis, patient has chronic respiratory acidosis due to chronic respiratory failure/COPD-his metabolic alkalosis is likely compensatory. 4. Acute on chronic respiratory failure: COPD and has pneumonia, EF 55 to 60% on prior echo Patient evaluated using audiovisual cart. Time spent 20 minutes Attestations Medical Necessity Statement*: per [facility] Coding Level of Care Code Acute Code for Chg Fwd Diagnoses Hyperkalemia E87.5 Acute on chronic renal failure N17.9; N18.9
--- NOTE | 2023-11-16 11:36 | PC.SOCIAL ---
IMM Updated Updated pt on IMM. No questions voiced. Provided pt a copy. Initialed, dated, & timed a copy & placed in chart.
[2023-11-16 11:52] LABS: Glucose Point of Care 356 mg/dL (70-110)
[2023-11-16] MEDS: azithromycin 250 mg Tablet 500 MG PO (15:02)
[2023-11-16] MEDS: methylPREDNISolone sod succ 40 mg/mL INJ 60 MG IVP (16:54)
[2023-11-16 16:57] LABS: Glucose Point of Care 250 mg/dL (70-110)
[2023-11-16 20:38] LABS: Glucose Point of Care 394 mg/dL (70-110)
[2023-11-16] MEDS: insulin glargine 100 units/1 mL 30 UNIT SUBCUT (21:53)
[2023-11-16] MEDS: montelukast sodium 10 mg Tablet PO (21:54)
[2023-11-16] MEDS: tamsulosin 0.4 mg Capsule 0.400000000000000022 MG PO (21:54)
[2023-11-16] MEDS: acetaminophen 325 mg Tablet 650 MG PO (21:54)
[2023-11-16] MEDS: atorvastatin 40 mg Tablet PO (21:54)
[2023-11-17] VITALS (7 sets, daily range): BP systolic 151–168; BP diastolic 76–87; PULSE 76–86; RESP 16–20; TEMP 36.6–37; O2SAT 92–100
[2023-11-17] MEDS: methylPREDNISolone sod succ 40 mg/mL INJ 60 MG IVP ×2 (00:38→09:59)
[2023-11-17] MEDS: ipratropium-albuterol 3 mL Neb INHALATION ×3 (00:48→08:08)
[2023-11-17 06:17] LABS: Anion Gap 12.2 (5-19); Blood Urea Nitrogen 40 mg/dL (8-23); Calcium 8.8 mg/dL (8.5-10.5); Carbon Dioxide 37 mmol/L (22-29); Chloride 91 mmol/L (98-107); Creatinine Clr Calc Pharmacy 61.1348; Glomerular Filtration Rate 55.2 mL/min (90-130); Glucose 286 mg/dL (65-115); Osmolality Calculated 302 mOsm/kg (285-295); Potassium 4.2 mmol/L (3.5-5.1); Sodium 136 mmol/L (136-145)
[2023-11-17 06:37] LABS: Glucose Point of Care 357 mg/dL (70-110)
[2023-11-17] MEDS: budesonide 0.5 mg/2 mL Neb 0.25 MG INHALATION (08:08)
[2023-11-17] MEDS: venlafaxine ER (24HR) 150 mg Capsule PO (09:42)
[2023-11-17] MEDS: aspirin 81 mg EC Tablet PO (09:42)
[2023-11-17] MEDS: sucralfate 1 gm Tablet PO (09:42)
[2023-11-17] MEDS: BuSPIRONE 10 mg Tablet PO (09:42)
[2023-11-17] MEDS: gabapentin 300 mg Capsule PO (09:42)
[2023-11-17] MEDS: insulin lispro 100 unit/1 mL SUBCUT ×2 (09:43→11:47)
[2023-11-17] MEDS: FUROsemide 20 mg Tablet PO (09:43)
[2023-11-17] MEDS: pantoprazole DR 40 mg Tablet PO (09:43)
[2023-11-17] MEDS: metoprolol tartrate 25 mg Tablet PO (09:43)
[2023-11-17] MEDS: fludrocortisone 0.1 mg Tablet 0.200000000000000011 MG PO (09:43)
[2023-11-17] MEDS: sennosides 8.6 mg Tablet 8.59999999999999964 MG PO (10:24)
[2023-11-17 10:49] LABS: Glucose Point of Care 286 mg/dL (70-110)
--- NOTE | 2023-11-17 11:13 | P.DS_ITS ---
Discharge Providers Date of Admission: 11/13/23 16:30 Date of Discharge: November 17, 2023 Attending Provider at Admission: Phill Velez MD Attending Provider at Discharge: Luzma Blevins MD Primary Care Provider: Alfredito Muro DO Diagnoses at Discharge Discharge Diagnosis (1) Hyperkalemia: Status: Acute (2) Acute on chronic renal failure: Status: Acute Reason for Visit Reason for Visit: SOB Brief History: Marlo Pike is a 68-year-old male with a past medical history significant for chronic hypoxic respiratory failure on 3 L baseline, COPD/emphysema, type 2 diabetes mellitus, coronary artery disease and severe anxiety who presented from nursing facility with shortness of breath x 2 to 3 days. He endorses associated symptoms of fatigue, malaise, myalgias, productive cough, and headache. Reports exertion worsens symptoms. Rest improves symptoms. Reports recent sick contacts. Denies recent travels. In the emergency department, patient was found to be in respiratory distress. Imaging revealed community-acquired pneumonia. He was started on antibiotics. He was found to be retaining urine for which Akhtar catheter was placed. Hospital Course Hospital Course Patient was admitted for community-acquired pneumonia initially and was placed on ceftriaxone IV. However due to lack of improvement in clinical status CT chest was pursued which shows chronic emphysema with component of interstitial lung disease and no true evidence of pneumonia at this time. During hospital stay he was given high-dose steroids with no change in clinical status. Reviewed his pulmonary records and talk with his core blower. Patient FEV1 is 32% of predicted. He has end-stage chronic emphysema with fibrosis. Recently his inhalers were all discontinued and he was transitioned over to triple nebulization with Perforomist Aidee and Pulmicort. Patient says he did receive the medications which I asked which I asked him multiple times about. At this point prognosis is very poor and I discussed that with the patient. He is not a candidate for Roflumilast either. I did recommend hospice to him at this point however patient is not ready to go down that route yet. He did say however that if he was in a situation where he needed to be resuscitated we should just let him go . He does not want to be on a ventilator and does not want CPR. This conversation was witnessed by patient's nurse in the room. It was reconfirmed with him again and he would like to be a DNR/DNI at this time. Regarding coming back to the hospital if he gets sick again he says I probably will come back. He would like to keep the Akhtar catheter for comfort at this time and says he gets really short of breath when he tries to go use the bathroom. Patient would benefit from palliative care consult. He is to follow- up with his primary care doctor at this time. He will be discharged on triple nebulization along with azithromycin Tuesday and a prolonged prednisone taper. After the taper and he is to remain on prednisone 5 mg daily. Lastly he did have persistent hyperkalemia during hospital stay. He was st arted on fludrocortisone by nephrology and was given Kayexalate and potassium lowering therapy multiple times. He will be discharged on Lokelma at this time for 2 weeks and to follow-up with his primary care doctor. I will give him repeat labs to do as an outpatient. Due to severe chronic emphysema he should be on triple nebulization rather than handheld inhalers. Patient is currently at baseline oxygen 3 to 3-1/2 L. He will be discharged to detention in stable condition at this time. He does require help with his ADLs especially using the bathroom. His functionality is limited by his shortness of breath secondary to end-stage emphysema. Physical Exam Narrative: General: Patient is awake. Ill-appearing. Conversational. 3 L nasal cannula. Cardiovascular: RRR. No gallops. No murmurs. Lungs: Breath sounds decreased in bilateral bases. Persistent bilateral rhonchi present. Faint end expiratory wheezing present. No rales. No crackles. Skin: No jaundice. No rashes. Abdomen: Normal bowel sounds, abdomen soft and nontender. Extremities: No cyanosis or clubbing. Urinary Catheter Management: Akhtar: Cath Placed During This Visit: yes Urinary Catheter Date of Insertion: 11/12/23 Urinary Catheter Time of Insertion: 15:25 Discharge Data Studies Completed and Pending Completed Studies During Hospitalization Category Date Time Status CT chest wo con [id number] Stat Cat Scan 11/15/23 12:52 Completed XR chest 1V portable [id number] Stat Exams 11/12/23 15:16 Completed US renal BI* [id number] Routine Ultrasound 11/14/23 08:46 Completed Pending at discharge Category Date Time Status Aldosterone Routine Lab 11/14/23 04:41 Received Blood Culture Stat Lab 11/12/23 16:12 Results RENIN [Plasma Renin Activity LC/MS/MS] Routine Lab 11/14/23 04:41 Received SARS Covid-2 Antigen Stat Lab 11/17/23 11:05 Uncollected Sputum Culture and Gram Stain Stat Lab 11/14/23 23:42 Results Radiology Impressions Chest X-Ray 11/12/23 15:16 IMPRESSION: 1. Small bilateral pleural effusions. 2. Patchy bilateral right greater than left largely mid to lower lung field mixed interstitial and airspace infiltrates. 3. Cardiomegaly. Laboratory Results WBC 12.76 10^3/uL (3.29-11.43) H 11/16/23 05:36 RBC 5.68 10^6/uL (3.85-5.65) H 11/16/23 05:36 Hgb 13.00 g/dL (11.27-16.99) 11/16/23 05:36 Hct 43.7 % (37-53) 11/16/23 05:36 MCV 76.9 fl (82-101) L 11/16/23 05:36 MCH 22.9 pg (27-33) L 11/16/23 05:36 MCHC 29.7 g/dL (30-55) L 11/16/23 05:36 RDW 16.3 % (12.1-15.1) H 11/16/23 05:36 Plt Count 353 10^3/cmm (157-399) 11/16/23 05:36 MPV 9.4 fL (7.4-10.4) 11/16/23 05:36 Neut % (Auto) 83.3 % 11/16/23 05:36 Lymph % (Auto) 11.2 % 11/16/23 05:36 [place] % (Auto) 3.7 % 11/16/23 05:36 Eos % (Auto) 0.0 % 11/16/23 05:36 Baso % (Auto) 0.2 % 11/16/23 05:36 Neut # (Auto) 10.62 10^3/uL (1.8-7.7) H 11/16/23 05:36 Lymph # (Auto) 1.4 10^3/uL (0.8-4.8) 11/16/23 05:36 [place] # (Auto) 0.5 10^3/uL (0.2-0.9) 11/16/23 05:36 Eos # (Auto) 0.0 10^3/uL (0.0-0.8) 11/16/23 05:36 Baso # (Auto) 0.0 10^3/uL (0.0-0.1) 11/16/23 05:36 Nucleated RBC % (auto) 0 % 11/16/23 05:36 Nucleated RBCs # 0.0 /100WBC 11/16/23 05:36 D-Dimer 0.33 ug/mLFEU (0-0.59) 11/15/23 13:07 Sodium 136 mmol/L (136-145) 11/17/23 05:31 Potassium 4.2 mmol/L (3.5-5.1) 11/17/23 05:31 Chloride 91 mmol/L (98-107) L 11/17/23 05:31 Carbon Dioxide 37 mmol/L (22-29) H 11/17/23 05:31 Anion Gap 12.2 (5-19) 11/17/23 05:31 BUN 40 mg/dL (8-23) H 11/17/23 05:31 Creatinine 1.3 mg/dL (0.7-1.2) H 11/17/23 05:31 GFR Calculation 55.2 mL/min (90-130) L 11/17/23 05:31 Glucose 286 mg/dL (65-115) H 11/17/23 05:31 POC Glucose 286 mg/dL (70-110) H 11/17/23 10:42 Calculated Osmolality 302 mOsm/kg (285-295) H 11/17/23 05:31 Lactic Acid 1.6 mmol/L (0.5-2.2) 11/12/23 16:05 Calcium 8.8 mg/dL (8.5-10.5) 11/17/23 05:31 Phosphorus 3.5 mg/dL (2.5-4.5) 11/14/23 04:41 Magnesium 1.8 mg/dL (1.7-2.3) 11/16/23 05:36 Total Bilirubin 0.2 mg/dL (0.15-1.2) 11/15/23 05:48 AST 20 U/L (0-40) 02/27/24 05:48 ALT 17 U/L (0-41) 11/15/23 05:48 Alkaline Phosphatase 95 U/L (40-130) 11/15/23 05:48 Troponin T Baseline 55 ng/L (0-15) H 11/12/23 16:05 Troponin T 120 Minute 50.56 ng/L (0-15) H 11/12/23 17:50 Delta Troponin T -4.44 ABS# (0-10) L 11/12/23 17:50 Troponin T Hi Sens 6Hr 59.43 ng/L (0-15) H 11/13/23 00:54 Troponin T Hi Sens 6Hr Delta 4.43 ng/L (0-12) 11/13/23 00:54 C-Reactive Protein 164.1 mg/L (0.0-4.9) H 11/12/23 16:05 NT-Pro-B Natriuret Pep 665 pg/mL (0-125) H 11/12/23 16:05 Total Protein 8.3 g/dL (6.6-8.7) 11/15/23 05:48 Albumin 3.4 g/dL (3.5-5.2) L 11/15/23 05:48 Globulin 4.9 g/dL (1.3-4.6) H 11/15/23 05:48 Procalcitonin 0.50 ng/mL (0-0.5) 11/12/23 16:05 Random Cortisol 1.25 ug/dL (2.47-19.5) L 11/14/23 04:41 Urine Color Yellow (Yellow) 11/12/23 15:33 Urine Appearance Clear (CLEAR) 11/12/23 15:33 Urine pH 5 (5-7) 11/12/23 15:33 Ur Specific Calvin 1.015 (1.005-1.030) 11/12/23 15:33 Urine Protein Neg (Negative) 11/12/23 15:33 Urine Glucose (UA) 1+ (Normal) H 11/12/23 15:33 Urine Ketones Negative (Negative) 11/12/23 15:33 Urine Blood 2+ (Negative) H 11/12/23 15:33 Urine Nitrate Negative (Negative) 11/12/23 15:33 Urine Bilirubin Neg (Negative) 11/12/23 15:33 Urine Urobilinogen Norm mg/dL (Negative) 11/12/23 15:33 Ur Leukocyte Esterase Negative (Negative) 11/12/23 15:33 Urine RBC 0-4 /hpf (0-2) H 11/12/23 15:33 Urine WBC None /hpf (0-5) 11/12/23 15:33 Ur Squamous Epith Cells None /hpf (0-5) 11/12/23 15:33 Amorphous Sediment Not Reportable 11/12/23 15:33 Urine Bacteria 1+ /hpf (NONE) H 11/12/23 15:33 Ur Random Sodium 18 mmol/L 11/14/23 11:25 Ur Random Chloride 15 mmol/L 11/14/23 11:25 Adenovirus (PCR) Not detected (NOT DETECT) 11/12/23 15:50 C. pneumoniae DNA (PCR) Not detected (NOT DETECT) 11/12/23 15:50 Coronavirus 229E (PCR) Not detected (NOT DETECT) 11/12/23 15:50 Human Metapneumovir PCR Not detected (NOT DETECT) 11/12/23 15:50 Influenza A (H1) PCR Not detected (NOT DETECT) 11/12/23 15:50 Influ A (H1/09) PCR Not detected (NOT DETECT) 11/12/23 15:50 Influenza A (H3) PCR Not detected (NOT DETECT) 11/12/23 15:50 Influenza Type A (PCR) Not detected (NOT DETECT) 11/12/23 15:50 Influenza Type B (PCR) Not detected (NOT DETECT) 11/12/23 15:50 M. pneumoniae (PCR) Not detected (NOT DETECT) 11/12/23 15:50 Parainfluenza 1 (PCR) Not detected (NOT DETECT) 11/12/23 15:50 Parainfluenza 2 (PCR) Not detected (NOT DETECT) 11/12/23 15:50 Parainfluenza 3 (PCR) Detected (NOT DETECT) A 11/12/23 15:50 Parainfluenza 4 (PCR) Not detected (NOT DETECT) 11/12/23 15:50 RSV Type A (PCR) Not detected (NOT DETECT) 11/12/23 15:50 RSV Type B (PCR) Not detected (NOT DETECT) 11/12/23 15:50 Entero/Rhino (PCR) Not detected (NOT DETECT) 11/12/23 15:50 SARS-CoV-2 (PCR) Not detected (NOT DETECT) 11/12/23 15:50 Vitals Last Vital Signs Temp 98.4 F 11/17/23 08:00 Pulse 84 11/17/23 08:15 Resp 16 11/17/23 08:00 BP 151/76 11/17/23 08:00 Pulse Ox 95 11/17/23 08:00 O2 Del Method Nasal Cannula 11/17/23 08:00 O2 Flow Rate 3.5 11/17/23 08:00 Discharge Plan Discharge Patient Disposition: Xfer SNF Condition: Stable Prescriptions: New Perforomist 20 mcg/2 mL solution for nebulization 2 ml inhalation BID Qty: 120 0RF Yupelri 175 mcg/3 mL solution for nebulization 175 mcg inhalation DAILY Qty: 90 0RF budesonide 1 mg/2 mL suspension for nebulization 1 mg inhalation BID Qty: 60 0RF azithromycin 250 mg Tablet 500 mg PO MoWeFr@1400 Qty: 30 0RF furosemide 20 mg Tablet 20 mg PO DAILY@0800 Qty: 30 0RF fludrocortisone 0.1 mg Tablet 0.2 mg PO DAILY Qty: 30 0RF prednisone 10 mg tablet See Rx Instructions .ROUTE .COMPLEX Qty: 93 0RF Rx Instructions: [id number] 96hsx5m 84uyg8a 47lwd6z 96aot7h 90del3a 5mg daily Lokelma 10 gram powder in packet 10 g PO Q48H 14 Days Qty: 7 0RF Continued aspirin [Adult Low Dose Aspirin] 81 mg tablet,delayed release (DR/EC) 81 mg PO DAILY atorvastatin 40 mg tablet 40 mg PO BEDTIME buspirone 10 mg tablet 10 mg PO TID tamsulosin 0.4 mg capsule 0.4 mg PO BEDTIME ferrous sulfate 325 mg (65 mg iron) tablet 325 mg PO DAILY hydrocodone-acetaminophen 5-325 mg tablet 1 tab PO Q8H PRN (Reason: Moderate Pain (Scale Score 5-6)) bisacodyl 10 mg Suppository 10 mg GA DAILY PRN (Reason: Constipation) Enema Disposable 19-7 gram/118 mL Enema 118 ml GA PRN PRN (Reason: Constipation) sucralfate 1 gram tablet 1 g PO BID venlafaxine 150 mg Capsule,Extended Release 24hr 150 mg PO DAILY lorazepam 0.5 mg Tablet 0.5 mg PO DAILY PRN (Reason: Anxiety) magnesium L-lactate 84 mg Tablet Extended Release 84 mg PO DAILY acetaminophen 325 mg Tablet 650 mg PO QID PRN (Reason: Pain) Preparation H Hydrocortisone 1 % Cream 1 applic TOPICAL TID PRN (Reason: Hemorrhoids) Novolog FlexPen U-100 Insulin 100 unit/mL (3 mL) insulin pen 10 unit SUBCUT TID Rx Instructions: per sliding scale Basaglar KwikPen U-100 Insulin 100 unit/mL (3 mL) insulin pen 30 unit SUBCUT BEDTIME montelukast 10 mg tablet 10 mg PO BEDTIME benzonatate 100 mg Capsule 100 mg PO TID PRN (Reason: Cough) Qty: 90 0RF sennosides 8.6 mg Tablet 8.6 mg PO DAILY magnesium hydroxide [Milk of Magnesia] 400 mg/5 mL Suspension 15 ml PO DAILY PRN (Reason: Constipation) gabapentin 300 mg capsule 300 mg PO TID naloxone 4 mg/actuation spray,non-aerosol 1 spray INTRANASAL Q1-2M PRN (Reason: Opioid Overdose) omeprazole 40 mg Capsule,Delayed Release(Dr/Ec) 40 mg PO DAILY citalopram 10 mg tablet 40 mg PO DAILY Qty: 120 0RF Discontinued budesonide-formoterol [Symbicort] 160-4.5 mcg/actuation HFA aerosol inhaler 2 puff inhalation BID Qty: 10.2 6RF ipratropium bromide 0.02 % Solution 2.5 ml INHALATION QID albuterol sulfate 90 mcg/actuation Hfa Aerosol Inhaler 2 puff INHALATION Q6H PRN (Reason: Shortness Of Breath Or Wheezing) albuterol sulfate 2.5 mg /3 mL (0.083 %) solution for nebulization 2.5 mg inhalation Q4H Qty: 180 0RF Discharge Orders: Discharge Order (Routine); Ordered 11/17/23 Ordered By: Luzma Blevins Other Ambulatory Orders: Basic Metabolic Panel (Q3D) Timeframe: 20231119 Facility: [facility] - Location: Lab - Main Lab Ordered By: Luzma Blevins Basic Metabolic Panel (Q3D) Timeframe: 20231122 Facility: [facility] - Location: Lab - Main Lab Ordered By: Luzma Felicity Basic Metabolic Panel (Q3D) Timeframe: 20231125 Facility: [facility] - Location: Lab - Main Lab Ordered By: Luzma Felicity Basic Metabolic Panel (Q3D) Timeframe: 20231128 Facility: [facility] - Location: Lab - Main Lab Ordered By: Luzma Felicity Basic Metabolic Panel (Q3D) Timeframe: 20231201 Facility: [facility] - Location: Lab - Main Lab Ordered By: Luzma Felicity Basic Metabolic Panel (Q3D) Timeframe: 20231204 Facility: [facility] - Location: Lab - Main Lab Ordered By: Luzma Felicity Referrals: [facility] [Outside] Alfredito Muro DO [Primary Care Provider] - 4-7 days Datar,Horace Duarte MD [Physician] - 1 month Discharge Diet: Cardiac and Diabetic Discharge Activity: Increase activity as tolerated and Oxygen as instructed Patient Instructions: Furosemide (By mouth), Prednisone (By mouth), Azithromycin (By mouth), Fludrocortisone Acetate (By mouth), Budesonide (By breathing), Revefenacin (By breathing), COPD Stoplight, Opioid Safety Activity Restrictions/Additional Instructions: Patient will need assistance with ADL's. Discharge Attestations Time Spent in Discharge Care*: greater than 30 min Status at Discharge: Cognitive status at discharge: cognitively intact , Behavioral status at discharge: cooperative , Quality Metrics Clinical Quality Measures [ No reported AMI, CVA or VTE this stay] Coding Level of Care Code 13830 Total time (in minutes) for Discharge: 45 Diagnoses Hyperkalemia E87.5 Acute on chronic renal failure N17.9; N18.9
--- NOTE | 2023-11-17 11:57 | PC.NURSE ---
[place] [facility] [place] Filomen[place] [facility] [place]
[2023-11-17 12:16] LABS: SARS Covid-2 Antigen negative (Negative)
[2023-11-21 14:45] LABS: Plasma Renin Activity LC/MS/MS 1.74 ng/mL/h (0.25-5.82)
--- NOTE | 2023-11-22 11:15 | PC.SOCIAL ---
Received call from lab w/ Critical Result. Result reported to Dr. Andrews and new orders received. Called [facility] and spoke to Aurelia Kennedy and gave verbal order for Doxycycline 100mg PO BID x7 days ordering physician Dr. Andrews. Lab result faxed to [facility] @ this time.
== END 2023-11-17 12:57 | disposition skilled nursing facility (03) | DRG 193 ==
LOC: ER 15:21 → MEDSURG 17:50
PROVIDERS: Hospitalist; Admitting Provider Internal Medicine; Emergency Provider Family Medicine; PCP Internal Medicine; Visit Provider Internal Medicine
DX: J12.2 Parainfluenza virus pneumonia (principal); J96.21 Acute and chronic respiratory failure with hypoxia; J44.1 Chronic obstructive pulmonary disease with (acute) exacerbation; N17.9 Acute kidney failure, unspecified; E87.4 Mixed disorder of acid-base balance; J44.0 Chronic obstructive pulmonary disease with (acute) lower respiratory infection; J43.2 Centrilobular emphysema; Z87.01 Personal history of pneumonia (recurrent); Z87.891 Personal history of nicotine dependence; Z99.81 Dependence on supplemental oxygen; J84.10 Pulmonary fibrosis, unspecified; E87.5 Hyperkalemia; F41.9 Anxiety disorder, unspecified; K21.9 Gastro-esophageal reflux disease without esophagitis; M10.9 Gout, unspecified; I12.9 Hypertensive chronic kidney disease with stage 1 through stage 4 chronic kidney disease, or unspecified chronic kidney disease; E11.22 Type 2 diabetes mellitus with diabetic chronic kidney disease; N18.32 Chronic kidney disease, stage 3b; E11.51 Type 2 diabetes mellitus with diabetic peripheral angiopathy without gangrene; I25.10 Atherosclerotic heart disease of native coronary artery without angina pectoris; Z86.16 Personal history of COVID-19
CPT/HCPCS: 36415; 36416; 51702; 71045; 71250; 76770; 80048; 80053; 80069; 81001; 82088; 82436; 82533; 82962; 83605; 83735; 83880; 84100; 84145; 84244; 84300; 84484; 85025; 85378; 86140; 86403; 87040; 87070; 87077; 87186; 87205; 87426; 87486; 87581; 87633; 93005; 94640; 94664; 96365; 96367; 96372; 96375; 99285; G0378; J0456; J0610; J0696; J1100; J1815; J2270; J2405; J2920; J7050; J7626; J7799; Q0144; Q3014

== ENCOUNTER 2023-11-19 12:21 | Emergency (ER) | payer MEDICARE, MEDICAID, SELFPAY ==
[2023-11-19] VITALS (12 sets, daily range): BP systolic 134–158; BP diastolic 83–103; PULSE 94–108; RESP 17–20; O2SAT 92–95
[2023-11-19 13:13] LABS: Basophils # 0.1 10^3/uL (0.0-0.1); Basophils % 0.3 %; Eosinophils % 0.2 %; Hematocrit 47.4 % (37-53); Lymphocytes # 0.9 10^3/uL (0.8-4.8); Lymphocytes % 5.3 %; Mean Corpuscular Hemoglobin 22.9 pg (27-33); Mean Corpuscular Volume 76.6 fl (82-101); Monocytes % 5.7 %; Neutrophils # 15.13 10^3/uL (1.8-7.7); Neutrophils % 86.8 %; Nucleated Red Blood Cells % 0 %; Platelet Count 309 10^3/cmm (157-399); Red Blood Count 6.19 10^6/uL (3.85-5.65); Red Cell Distribution Width 17.4 % (12.1-15.1); White Blood Count 17.42 10^3/uL (3.29-11.43)
[2023-11-19 13:22] LABS: Alanine Aminotransferase 13 U/L (0-41); Albumin Level 3.3 g/dL (3.5-5.2); Alkaline Phosphatase 79 U/L (40-130); Anion Gap 14.8 (5-19); Aspartate Amino Transferase 12 U/L (0-40); Blood Urea Nitrogen 37 mg/dL (8-23); Calcium 8.8 mg/dL (8.5-10.5); Carbon Dioxide 34 mmol/L (22-29); Chloride 94 mmol/L (98-107); Globulin 4.2 g/dL (1.3-4.6); Glomerular Filtration Rate 50.7 mL/min (90-130); Glucose 99 mg/dL (65-115); Lipase 10 U/L (13-60); Osmolality Calculated 297 mOsm/kg (285-295); Potassium 3.8 mmol/L (3.5-5.1); Sodium 139 mmol/L (136-145); Total Bilirubin 0.6 mg/dL (0.15-1.2); Total Protein 7.5 g/dL (6.6-8.7)
--- NOTE | 2023-11-19 13:30 | ECG_ITS ---
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 Measurements Intervals [place] Rate: 101 P: 62 UT: 201 QRS: 103 QRSD: 94 T: 45 QT: 338 QTc: 439 Interpretive Statements SINUS TACHYCARDIA INCOMPLETE RIGHT BUNDLE BRANCH BLOCK [90+ ms QRS DURATION, TERMINAL R IN V1/V2, 40+ ms S IN I/aVL/V4/V5/V6] POSSIBLE RIGHT VENTRICULAR HYPERTROPHY [SOME/ALL OF: PROMINENT R IN V1, LATE TRANSITION, RAD, MARIZA, SSS] Compared to ECG 11/12/2023 17:09:52 Incomplete right bundle-branch block now present First degree AV block no longer present Electronically Signed On 11-21-2023 9:31:28 DRIVER SUPERVISOR by Jw Guillory M.D. [email or web address]
--- NOTE | 2023-11-19 13:30 | CTR_ITS ---
PROCEDURE INFORMATION: Exam: CT Abdomen And Pelvis Without Contrast Exam date and time: 11/19/2023 1:40 PM Age: 68 years old Clinical indication: Abdominal pain TECHNIQUE: Imaging protocol: Computed tomography of the abdomen and pelvis without contrast. Radiation optimization: All CT scans at this facility use at least one of these dose optimization techniques: automated exposure control; mA and/or kV adjustment per patient size (includes targeted exams where dose is matched to clinical indication); or iterative reconstruction. COMPARISON: US renal BI* [id number] 11/14/2023 3:40 PM RADIATION DOSE METRICS: Total DLP (mGy-cm): 844.47 FINDINGS: Lungs: Emphysematous changes. Bilateral dependent airspace infiltrates. Coronary arteries: Coronary artery atherosclerotic calcifications. Liver: Normal. No mass. Gallbladder and bile ducts: Cholecystectomy. Pancreas: Normal. No ductal dilation. Spleen: Normal. No splenomegaly. Adrenal glands: Normal. No mass. Kidneys and ureters: Perinephric edema bilaterally likely reflecting renal sufficiency, please correlate for pyelonephritis. Right kidney cyst, negative for follow-up advised. Stomach and bowel: Mild gastric wall thickening may be due to nondistention, please correlate for gastritis. Moderate constipation. Appendix: No evidence of appendicitis. Intraperitoneal space: Unremarkable. No free air. No significant fluid collection. Vasculature: Unremarkable. No abdominal aortic aneurysm. Lymph nodes: Unremarkable. No enlarged lymph nodes. Urinary bladder: Unremarkable as visualized. Reproductive: Prostate gland enlarged please correlate clinically. Bones/joints: Unremarkable. No acute fracture. Soft tissues: Small bilateral fat containing inguinal hernias without bowel or inflammation. CT/CT abdomen pelvis wo con [id number] IMPRESSION: 1. Mild gastric wall thickening may be due to nondistention, please correlate for gastritis. 2. Coronary artery atherosclerotic calcifications. 3. Emphysematous changes. 4. Bilateral dependent airspace infiltrates. 5. Cholecystectomy. 6. Perinephric edema bilaterally likely reflecting renal sufficiency, please correlate for pyelonephritis. 7. Right kidney cyst, negative for follow-up advised. 8. Moderate constipation. 9. Small bilateral fat containing inguinal hernias without bowel or inflammation. 10. Prostate gland enlarged please correlate clinically.
--- NOTE | 2023-11-19 13:56 | ED_ITS ---
HPI - Abdominal Pain 2 General: Chief Complaint: Abdominal Pain Stated Complaint: ABD PAIN Time Seen by Provider: 11/19/23 12:21 Source: patient Mode of arrival: EMS History of Present Illness: 68-year-old male presents emergency room complaining of sharp pain cramping sensation in his abdomen intermittently. This been going on for several days he also feels extremely short of breath with that. He has not had any hematemesis coffee-ground emesis no productive cough no documented fevers denies chest pain. Patient is chronically on 3 L by oxygen and satting in the mid 90s on 3 L at this time. MD elicited complaint: abdominal pain Onset (ago): minute(s) Pain Consistency: constant Location: Diffuse Severity: moderate Quality: cramping Radiation: none Migration to: no migration Exacerbating factors: nothing Relieving factors: nothing Associated Symptoms: Denies anorexia, belching, bloating, change in bowel habits, change in stool character, chills, coffee ground emesis, constipation, GI cramping, diarrhea, dyspepsia, dysuria, excessive flatus, fever(s), heartburn, hematochezia, hematuria, hematemesis, fecal incontinence, loose stools, melena, nausea, poor appetite, syncope and vomiting Review of Systems 2 Const: Denies: fever(s) or chills Card: Denies: syncope Resp: Denies: dyspnea GI: Denies: nausea, vomiting, hematemesis, coffee ground emesis, heartburn, diarrhea, constipation, bloating, GI cramping, belching, excessive flatus, fecal incontinence, change in bowel habits, change in stool character, hematochezia or melena : Denies: dysuria or hematuria Musc: Denies: neck pain or back pain Skin/Breast: Denies: rash PFSH ED 2 PFSH: Medical History Hyperkalemia Hospital discharge follow-up Acute respiratory failure due to COVID-19 Encounter for screening for lung cancer Exertional dyspnea Encounter for smoking cessation counseling COPD (chronic obstructive pulmonary disease) MRSA carrier Centrilobular emphysema Hypoxia Type 2 diabetes mellitus COVID-19 Positive DENY (antinuclear antibody) COVID-19 vaccine dose not administered Pneumonia CAD (coronary artery disease) Prostatic hypertrophy On home oxygen therapy Usually on 2 L by nasal cannula Skin cancer Specific type unknown PVD (peripheral vascular disease) Gout CKD (chronic kidney disease) GERD (gastroesophageal reflux disease) Hypertension Diabetes mellitus Mediastinal adenopathy Anxiety disorder Tobacco use Surgical History History of cholecystectomy History of coronary artery stent placement X2 History of skin surgery Left neck for skin cancer Presence of coronary angioplasty implant and graft Family History Mother Cancer Father CAD (coronary artery disease) Social History Smoking and tobacco/nicotine status: former use of tobacco/nicotine Quit status (tobacco/nicotine): has quit using Year quit tobacco: 2022 Former quit date comment: 2 ppd X 60 years Second hand smoke exposure: Yes Alcohol intake: former Substance/Drug Use: never Caregiver/support person: Yes Lives independently: No Housing: [facility] Marital status: / service: No Current occupational status: disabled Pets and animals: Yes Do you think of yourself as: Straight/Heterosexual Current gender identity: Male Physical Exam 2 Const: GENERAL APPEARANCE: cooperative and comfortable O RIENTATION/CONSCIOUSNESS: Yes awake, Yes oriented to person, Yes oriented to place and Yes oriented to time HENMT: COMMON NORMALS: normocephalic, atraumatic and hearing grossly normal bilaterally HEAD & SCALP: normocephalic and atraumatic Resp: COMMON NORMALS: normal respiratory effort, No retractions, No use of accessory muscles and clear to auscultation bilaterally AUSCULTATION: clear to auscultation bilaterally Cardio: COMMON NORMALS: regular rate, regular rhythm and No murmurs present (Cardio) RATE: regular rate RHYTHM: regular rhythm GI: COMMON NORMALS: No hepatosplenomegaly present AUSCULTATION: Yes normoactive bowel sounds PALPATION: Yes Tenderness to palpation present (GI) (Diffuse), No Guarding due to palpation present (GI) and Yes No hepatosplenomegaly present Extremity: COMMON NORMALS: normal to inspection, capillary refill normal, no clubbing, cyanosis or edema, no calf tenderness and no pedal edema Neuro: SENSORIUM/ORIENTATION: Yes oriented to person, Yes oriented to place and Yes oriented to time Skin: COMMON NORMALS: no rashes or lesions noted GENERAL SKIN EXAM: no rashes or lesions noted Course 2 Vital Signs: Vital signs: Vital Signs Pulse Rate 108 H 11/19/23 20:24 Respiratory Rate 20 H 11/19/23 20:18 Blood Pressure 139/87 11/19/23 16:39 Pulse Oximetry 92 11/19/23 20:18 Oxygen Delivery Me thod Nasal Cannula 11/19/23 20:18 Oxygen Flow Rate 3 11/19/23 20:18 MDM - Abdominal Pain Medical Decision Making Patient states he has abdominal discomfort is not really having any respiratory symptoms at this time. CT reviewed some gastric wall thickening and some perinephric stranding perinephric stranding is likely from renal insufficiency there is no sign of cystitis. He does have an elevated white count. He has previously had a cholecystectomy. Creatinine is at 1 4 which is roughly his baseline. Discharge patient home bland diet return if has worsening problems. If develops any fever or vomiting should return and be reevaluated. Encourage patient to have a low threshold for return to the emergency room. Medical Records I reviewed the patient's medical records. Lab Data I reviewed the patient's lab results. 11/19/23 12:58 11/19/23 12:58 Labs/Radiology: Radiology Impressions Abdomen/Pelvis CT 11/19/23 13:30 IMPRESSION: 1. Mild gastric wall thickening may be due to nondistention, please correlate for gastritis. 2. Coronary artery atherosclerotic calcifications. 3. Emphysematous changes. 4. Bilateral dependent airspace infiltrates. 5. Cholecystectomy. 6. Perinephric edema bilaterally likely reflecting renal sufficiency, please correlate for pyelonephritis. 7. Right kidney cyst, negative for follow-up advised. 8. Moderate constipation. 9. Small bilateral fat containing inguinal hernias without bowel or inflammation. 10. Prostate gland enlarged please correlate clinically. Laboratory Results WBC 17.42 10^3/uL (3.29-11.43) H 11/19/23 12:58 RBC 6.19 10^6/uL (3.85-5.65) H 11/19/23 12:58 Hgb 14.20 g/dL (11.27-16.99) 11/19/23 12:58 Hct 47.4 % (37-53) 11/19/23 12:58 MCV 76.6 fl (82-101) L 11/19/23 12:58 MCH 22.9 pg (27-33) L 11/19/23 12:58 MCHC 30.0 g/dL (30-55) 11/19/23 12:58 RDW 17.4 % (12.1-15.1) H 11/19/23 12:58 Plt Count 309 10^3/cmm (157-399) 11/19/23 12:58 MPV 9.0 fL (7.4-10.4) 11/19/23 12:58 Neut % (Auto) 86.8 % 11/19/23 12:58 Lymph % (Auto) 5.3 % 11/19/23 12:58 [place] % (Auto) 5.7 % 11/19/23 12:58 Eos % (Auto) 0.2 % 11/19/23 12:58 Baso % (Auto) 0.3 % 11/19/23 12:58 Neut # (Auto) 15.13 10^3/uL (1.8-7.7) H 11/19/23 12:58 Lymph # (Auto) 0.9 10^3/uL (0.8-4.8) 11/19/23 12:58 [place] # (Auto) 1.0 10^3/uL (0.2-0.9) H 11/19/23 12:58 Eos # (Auto) 0.0 10^3/uL (0.0-0.8) 11/19/23 12:58 Baso # (Auto) 0.1 10^3/uL (0.0-0.1) 11/19/23 12:58 Nucleated RBC % (auto) 0 % 11/19/23 12:58 Nucleated RBCs # 0.0 /100WBC 11/19/23 12:58 Sodium 139 mmol/L (136-145) 11/19/23 12:58 Potassium 3.8 mmol/L (3.5-5.1) 11/19/23 12:58 Chloride 94 mmol/L (98-107) L 11/19/23 12:58 Carbon Dioxide 34 mmol/L (22-29) H 11/19/23 12:58 Anion Gap 14.8 (5-19) 11/19/23 12:58 BUN 37 mg/dL (8-23) H 11/19/23 12:58 Creatinine 1.4 mg/dL (0.7-1.2) H 11/19/23 12:58 GFR Calculation 50.7 mL/min (90-130) L 11/19/23 12:58 Glucose 99 mg/dL (65-115) 11/19/23 12:58 Calculated Osmolality 297 mOsm/kg (285-295) H 11/19/23 12:58 Calcium 8.8 mg/dL (8.5-10.5) 11/19/23 12:58 Total Bilirubin 0.6 mg/dL (0.15-1.2) 11/19/23 12:58 AST 12 U/L (0-40) 11/19/23 12:58 ALT 13 U/L (0-41) 11/19/23 12:58 Alkaline Phosphatase 79 U/L (40-130) 11/19/23 12:58 Total Protein 7.5 g/dL (6.6-8.7) 11/19/23 12:58 Albumin 3.3 g/dL (3.5-5.2) L 11/19/23 12:58 Globulin 4.2 g/dL (1.3-4.6) 11/19/23 12:58 Lipase 10 U/L (13-60) L 11/19/23 12:58 Urine Color Yellow (Yellow) 11/19/23 15:18 Urine Appearance Clear (CLEAR) 11/19/23 15:18 Urine pH 5 (5-7) 11/19/23 15:18 Ur Specific [place] 1.015 (1.005-1.030) 11/19/23 15:18 Urine Protein Neg (Negative) 11/19/23 15:18 Urine Glucose (UA) Norm (Normal) 11/19/23 15:18 Urine Ketones Negative (Negative) 11/19/23 15:18 Urine Blood Neg (Negative) 11/19/23 15:18 Urine Nitrate Negative (Negative) 11/19/23 15:18 Urine Bilirubin Neg (Negative) 11/19/23 15:18 Urine Urobilinogen Norm mg/dL (Negative) 11/19/23 15:18 Ur Leukocyte Esterase Negative (Negative) 11/19/23 15:18 All radiology interpretation(s) finalized by discharge Discharge Plan Discharge Patient Disposition: Home Clinical Impression: COPD (chronic obstructive pulmonary disease), Abdominal pain, Constipation Condition: Stable Prescriptions: No Action aspirin [Adult Low Dose Aspirin] 81 mg tablet,delayed release (DR/EC) 81 mg PO DAILY atorvastatin 40 mg tablet 40 mg PO BEDTIME buspirone 10 mg tablet 10 mg PO TID tamsulosin 0.4 mg capsule 0.4 mg PO BEDTIME ferrous sulfate 325 mg (65 mg iron) tablet 325 mg PO DAILY hydrocodone-acetaminophen 5-325 mg tablet 1 tab PO Q8H PRN (Reason: Moderate Pain (Scale Score 5-6)) bisacodyl 10 mg Suppository 10 mg ID DAILY PRN (Reason: Constipation) Enema Disposable 19-7 gram/118 mL Enema 118 ml ID PRN PRN (Reason: Constipation) sucralfate 1 gram tablet 1 g PO BID venlafaxine 150 mg Capsule,Extended Release 24hr 150 mg PO DAILY lorazepam 0.5 mg Tablet 0.5 mg PO DAILY PRN (Reason: Anxiety) magnesium L-lactate 84 mg Tablet Extended Release 84 mg PO DAILY acetaminophen 325 mg Tablet 650 mg PO Q6H PRN (Reason: Pain) hydrocortisone [Preparation H Hydrocortisone] 1 % Cream 1 applic TOPICAL Q8H PRN (Reason: Hemorrhoids) insulin aspart U-100 [Novolog FlexPen U-100 Insulin] 100 unit/mL (3 mL) insulin pen 10 unit SUBCUT TIDWM insulin glargine [Basaglar KwikPen U-100 Insulin] 100 unit/mL (3 mL) insulin pen 30 unit SUBCUT BEDTIME formoterol fumarate [Perforomist] 20 mcg/2 mL solution for nebulization 2 ml inhalation BID Qty: 120 0RF Yupelri 175 mcg/3 mL solution for nebulization 175 mcg inhalation DAILY Qty: 90 0RF budesonide 1 mg/2 mL suspension for nebulization 1 mg inhalation BID Qty: 60 0RF furosemide 20 mg Tablet 20 mg PO DAILY@0800 Qty: 30 0RF fludrocortisone 0.1 mg Tablet 0.2 mg PO DAILY Qty: 30 0RF prednisone 10 mg tablet See Rx Instructions .ROUTE .COMPLEX Qty: 93 0RF Rx Instructions: [id number] 16fdd0j 81hak0h 5mg daily montelukast 10 mg tablet 10 mg PO BEDTIME sennosides 8.6 mg Tablet 8.6 mg PO DAILY magnesium hydroxide [Milk of Magnesia] 400 mg/5 mL Suspension 30 ml PO DAILY PRN (Reason: Constipation) gabapentin 300 mg capsule 300 mg PO TID naloxone 4 mg/actuation spray,non-aerosol 1 spray INTRANASAL Q1-2M PRN (Reason: Opioid Overdose) omeprazole 40 mg Capsule,Delayed Release(Dr/Ec) 40 mg PO DAILY citalopram 40 mg tablet 40 mg PO DAILY azithromycin 250 mg tablet 250 mg PO .MON,WED,FRI benzonatate 100 mg capsule 100 mg PO Q8H PRN (Reason: Cough) Novolog FlexPen U-100 Insulin 100 unit/mL (3 mL) Insulin Pen See Rx Instructions .ROUTE .COMPLEX Rx Instructions: inject per sliding scale subcutaneously before meals 181-220=2 units 221-260=4 units 261-300=6 units 301-350=8 units 351-400=10 units 401-450=12 units if greater than 450 give 14 units if lower than 60 or greater than 500 call physician Selsualice Blue (pyrithione zinc) 1 % Shampoo See Rx Instructions .ROUTE .COMPLEX Rx Instructions: apply to scalp topically as needed for dry scalp use in showers as needed for dry scalp Discharge Orders: Discharge ED (Routine); Ordered 11/19/23 Ordered By: Simone Clark Referrals: Alfredito Muro DO [Primary Care Provider] - Patient Instructions: Abdominal Pain (ED), Opioid Safety, Pain Management Activity Restrictions/Additional Instructions: Thank you for choosing [facility] for your healthcare needs today. Please realize this is an emergency room and that we are providing you with a medical screening exam and this may not be complete and all inclusive of all the testing and or work up that you may need to determine your ailment or severity of your illness. It is very important that you follow up as instructed or that you return to the Emergency Department should you have concerns or if your condition changes or worsens in any way. You were seen today for abdominal pain your white count is elevated secondary to prednisone. CT of your abdomen did not show any acute pathologic problems. Continue to follow-up with your primary care doctor. 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
[2023-11-19 15:26] LABS: Add Urine Microscopic? NO; Charge for UA Resulting for Rev
[2023-11-19 15:27] LABS: Specific Gravity, Urine 1.015 (1.005-1.030); Urine Appearance Clear (CLEAR); Urine Color Yellow (Yellow); pH Urine 5 (5-7)
[2023-11-19 15:28] LABS: Bilirubin Urine Neg (Negative); Blood Urine Neg (Negative); Glucose Urine UA Norm (Normal); Ketones Urine Negative (Negative); Leukocyte Esterase Urine Negative (Negative); Nitrate Urine Negative (Negative); Protein Urine Neg (Negative); Urobilinogen Urine Norm (Negative)
--- NOTE | 2023-11-19 16:47 | PC.PHAR ---
pt is from [facility]-waiting for phone call back to verify if azithromycin 500mg on mon,wed fri written 11/17/23 or nov has 250mg on mon wed and tue-not on nov was linezolid 600mg bid and lokelma 10g q48h both written on 11/17/23 from but not on nov-
[2023-11-19] MEDS: ipratropium-albuterol 3 mL Neb INHALATION (20:17)
== END 2023-11-19 21:33 | disposition home or self-care (01) ==
PROVIDERS: Emergency Provider Family Medicine; PCP Internal Medicine
DX: J44.9 Chronic obstructive pulmonary disease, unspecified (principal); K59.00 Constipation, unspecified; R10.9 Unspecified abdominal pain; I25.10 Atherosclerotic heart disease of native coronary artery without angina pectoris; Z99.81 Dependence on supplemental oxygen; I12.9 Hypertensive chronic kidney disease with stage 1 through stage 4 chronic kidney disease, or unspecified chronic kidney disease; E11.22 Type 2 diabetes mellitus with diabetic chronic kidney disease; N18.9 Chronic kidney disease, unspecified; Z95.5 Presence of coronary angioplasty implant and graft; Z87.891 Personal history of nicotine dependence
CPT/HCPCS: 36415; 74176; 80053; 81003; 83690; 85025; 93005; 94640; 99284

== ENCOUNTER 2024-02-29 09:04 | Emergency (ER) | payer MEDICARE, MEDICAID, SELFPAY ==
[2024-02-29 09:04] VITALS: BP 160/99; PULSE 113; RESP 24; TEMP 37.3; O2SAT 95; BMI 30.4
[2024-02-29] MEDS: diphenhydrAMINE 50 mg/mL SDV 1mL 25 MG IVP (09:16)
[2024-02-29] MEDS: metoclopramide 5 mg/mL SDV 2 mL IVP (09:17)
[2024-02-29] MEDS: ketorolac 30 mg/mL INJ 15 MG IVP (09:17)
--- NOTE | 2024-02-29 09:28 | ED_ITS ---
HPI - Headache General: Chief Complaint: Headache Stated Complaint: Headache, SOB Time Seen by Provider: 02/29/24 09:10 Source: patient and EMS Mode of arrival: EMS Limitations: no limitations History of Present Illness: 68-year-old male is here from [facility] he is currently on hospice due to COPD he states he has been having headaches for 3 months has had a headache since this morning but it worsened and was an 8 out of 10 it quested to come here for treatment for his headache. He denies any vomiting or diarrhea denies any increased increased short of breath Associated symptoms: Deny chest pain, fever(s), nausea, rash or vomiting Review of Systems Const: Denies: fever(s), chills, body aches or change in appetite Eyes: Denies: blurry vision or eye discomfort ENMT: Denies: throat pain or dental pain Card: Denies: chest pain Resp: Denies: dyspnea GI: Denies: abdominal pain, nausea, vomiting or diarrhea Musc: Denies: neck pain or back pain Skin/Breast: Denies: rash Neuro: Reports: headache(s) PFSH ED PFSH: Medical History Hyperkalemia Hospital discharge follow-up Acute respiratory failure due to COVID-19 Encounter for screening for lung cancer Exertional dyspnea Encounter for smoking cessation counseling COPD (chronic obstructive pulmonary disease) MRSA carrier Centrilobular emphysema Hypoxia Type 2 diabetes mellitus COVID-19 Positive DENY (antinuclear antibody) COVID-19 vaccine dose not administered Pneumonia CAD (coronary artery disease) Prostatic hypertrophy On home oxygen therapy Usually on 2 L by nasal cannula Skin cancer Specific type unknown PVD (peripheral vascular disease) Gout CKD (chronic kidney disease) GERD (gastroesophageal reflux disease) Hypertension Diabetes mellitus Mediastinal adenopathy Anxiety disorder Tobacco use Surgical History History of cholecystectomy History of coronary artery stent placement X2 History of skin surgery Left neck for skin cancer Presence of coronary angioplasty implant and graft Family History Mother Cancer Father CAD (coronary artery disease) Social History Smoking and tobacco/nicotine status: former use of tobacco/nicotine Quit status (tobacco/nicotine): has quit using Year quit tobacco: 2022 Former quit date comment: 2 ppd X 60 years Second hand smoke exposure: Yes Alcohol intake: former Substance/Drug Use: never Caregiver/support person: Yes Lives independently: No Housing: [facility] Marital status: / service: No Current occupational status: disabled Pets and animals: Yes Do you think of yourself as: Straight/Heterosexual Current gender identity: Male Physical Exam Const: COMMON NORMALS: patient oriented x3 HENMT: COMMON NORMALS: normocephalic and atraumatic HEAD & SCALP: normocephalic and atraumatic Eye: COMMON NORMALS: Equal, round and reactive pupils present and EOMs intact bilaterally PUPIL: Yes Equal, round and reactive pupils present Neck/C-Spine: COMMON NORMALS: full ROM and supple Chest: COMMONS NORMALS: normal inspection of the chest and normal palpation of entire chest wall Resp: COMMON NORMALS: normal respiratory effort, No retractions, No use of accessory muscles and clear to auscultation bilaterally AUSCULTATION: clear to auscultation bilaterally Cardio: COMMON NORMALS: regular rhythm and No murmurs present (Cardio) RATE: tachycardic RHYTHM: regular rhythm GI: COMMON NORMALS: Normal to inspection, nondistended, normoactive bowel sounds present, Soft to palpation, non-tender and no masses PALPATION: Yes Soft to palpation Extremity: COMMON NORMALS: normal to inspection and full ROM Neuro: COMMON NORMALS: patient oriented x3, moves all extremities and no focal motor deficits Psych: COMMON NORMALS: mental status grossly normal, Normal thought process present and cooperative THOUGHT PROCESS: Normal thought process present Skin: COMMON NORMALS: no rashes or lesions noted and no wounds GENERAL SKIN EXAM: no rashes or lesions noted Course Vital Signs: Vital signs: Vital Signs Temperature 99.1 F 02/29/24 09:04 Pulse Rate 109 H 02/29/24 11:00 Respiratory Rate 24 H 02/29/24 09:56 Blood Pressure 139/85 02/29/24 11:00 Pulse Oximetry 94 02/29/24 11:00 Oxygen Delivery Me thod Nasal Cannula 02/29/24 11:00 Oxygen Flow Rate 4 02/29/24 11:00 MDM - Headache Medical Decision Making Patient presents here with a headache he is here for pain relief he is on hospice he is at his baseline here in no distress he feels much improved after pain meds stable for discharge back to the [facility]. Medical Records I reviewed the patient's medical records. No radiology studies performed this visit Discharge Plan Discharge Patient Disposition: Home Clinical Impression: Headache Condition: Stable Prescriptions: No Action aspirin [Adult Low Dose Aspirin] 81 mg tablet,delayed release (DR/EC) 81 mg PO DAILY atorvastatin 40 mg tablet 40 mg PO BEDTIME buspirone 10 mg tablet 10 mg PO TID tamsulosin 0.4 mg capsule 0.4 mg PO BEDTIME ferrous sulfate 325 mg (65 mg iron) tablet 325 mg PO DAILY bisacodyl 10 mg Suppository 10 mg MA DAILY PRN (Reason: Constipation) Enema Disposable 19-7 gram/118 mL Enema 118 ml MA PRN PRN (Reason: Constipation) sucralfate 1 gram tablet 1 g PO BID venlafaxine 150 mg Capsule,Extended Release 24hr 150 mg PO DAILY lorazepam 0.5 mg Tablet 0.5 mg PO Q8H PRN (Reason: Anxiety) magnesium L-lactate 84 mg Tablet Extended Release 84 mg PO DAILY acetaminophen 325 mg Tablet 650 mg PO Q6H PRN (Reason: Pain) hydrocortisone [Preparation H Hydrocortisone] 1 % Cream 1 applic TOPICAL Q8H PRN (Reason: Hemorrhoids) insulin aspart U-100 [Novolog FlexPen U-100 Insulin] 100 unit/mL (3 mL) insulin pen 10 unit SUBCUT TIDWM insulin glargine [Basaglar KwikPen U-100 Insulin] 100 unit/mL (3 mL) insulin pen 30 unit SUBCUT BEDTIME formoterol fumarate [Perforomist] 20 mcg/2 mL solution for nebulization 2 ml inhalation BID Qty: 120 0RF Yupelri 175 mcg/3 mL solution for nebulization 175 mcg inhalation DAILY Qty: 90 0RF budesonide 1 mg/2 mL suspension for nebulization 1 mg inhalation BID Qty: 60 0RF furosemide 20 mg Tablet 20 mg PO DAILY@0800 Qty: 30 0RF fludrocortisone 0.1 mg Tablet 0.2 mg PO DAILY Qty: 30 0RF prednisone 5 mg tablet 5 mg PO DAILY citalopram 20 mg tablet 20 mg PO DAILY ropinirole 0.25 mg tablet 0.25 mg PO BID hydrocodone-acetaminophen 7.5-325 mg tablet 1 tab PO QID Miralax 17 gram/dose Powder 17 g PO DAILY PRN (Reason: Constipation) Rx Instructions: prn order Miralax 17 gram/dose Powder 17 g PO DAILY Rx Instructions: maintenance order montelukast 10 mg tablet 10 mg PO BEDTIME sennosides 8.6 mg Tablet 8.6 mg PO DAILY magnesium hydroxide [Milk of Magnesia] 400 mg/5 mL Suspension 30 ml PO DAILY PRN (Reason: Constipation) gabapentin 300 mg capsule 300 mg PO TID naloxone 4 mg/actuation spray,non-aerosol 1 spray INTRANASAL Q1-2M PRN (Reason: Opioid Overdose) omeprazole 40 mg Capsule,Delayed Release(Dr/Ec) 40 mg PO DAILY benzonatate 100 mg capsule 100 mg PO Q8H PRN (Reason: Cough) insulin aspart U-100 [Novolog FlexPen U-100 Insulin] 100 unit/mL (3 mL) Insulin Pen See Rx Instructions .ROUTE .COMPLEX Rx Instructions: inject per sliding scale subcutaneously before meals 181-220=2 units 221-260=4 units 261-300=6 units 301-350=8 units 351-400=10 units 401-450=12 units if greater than 450 give 14 units if lower than 60 or greater than 500 call physician Selsualice Blue (pyrithione zinc) 1 % Shampoo See Rx Instructions .ROUTE .COMPLEX Rx Instructions: Apply to scalp topically as needed for use in showers as needed for dry scalp. Discharge Orders: Discharge ED (Routine); Ordered 02/29/24 Ordered By: Rell Chen Referrals: Alfredito Muro DO [Primary Care Provider] - 4-7 days Discharge Diet: Advance as tolerated Discharge Activity: Resume usual activity Patient Instructions: Headache Coding Level of Care Code ED Crook Operator for Chg Evgeny
[2024-02-29 09:30] VITALS: BP 138/95; PULSE 112; O2SAT 91
--- NOTE | 2024-02-29 09:54 | PC.PHAR ---
PT IS FROM [facility]. LUZ-RN STATES PT HAS HAD MORNING MEDICATIONS PLUS TESSALON PEARLS AND HAS NOT HAD MIRALAX YET TODAY
[2024-02-29 09:56] VITALS: RESP 24; O2SAT 92
[2024-02-29] MEDS: HYDROmorphone 1 mg/mL INJ 1 mL IVP (09:56)
[2024-02-29 10:00] VITALS: BP 155/89; PULSE 113; O2SAT 91
[2024-02-29 11:00] VITALS: BP 139/85; PULSE 109; O2SAT 94
[2024-02-29 11:42] VITALS: BP 133/81; PULSE 112; O2SAT 95
== END 2024-02-29 11:49 | disposition home or self-care (01) ==
PROVIDERS: Emergency Provider Emergency Medicine; PCP Internal Medicine
DX: R51.9 Headache, unspecified (principal); Z79.82 Long term (current) use of aspirin; Z79.4 Long term (current) use of insulin; Z87.891 Personal history of nicotine dependence; J44.9 Chronic obstructive pulmonary disease, unspecified; I25.10 Atherosclerotic heart disease of native coronary artery without angina pectoris; Z99.81 Dependence on supplemental oxygen; E11.22 Type 2 diabetes mellitus with diabetic chronic kidney disease; I12.9 Hypertensive chronic kidney disease with stage 1 through stage 4 chronic kidney disease, or unspecified chronic kidney disease; N18.9 Chronic kidney disease, unspecified; Z95.5 Presence of coronary angioplasty implant and graft
CPT/HCPCS: 96374; 96375; 99284; J1170; J1200; J1885; J2765

== ENCOUNTER 2024-03-01 17:48 | Emergency (ER) | payer MEDICARE, MEDICAID, SELFPAY ==
[2024-03-01] VITALS (7 sets, daily range): BP systolic 114–150; BP diastolic 69–97; PULSE 111–116; RESP 16–24; TEMP 36.8; O2SAT 92–96; BMI 22.8
--- NOTE | 2024-03-01 17:58 | ECG_ITS ---
[facility] Test Date: 2024-03-01 Pat Name: Marlo Gleason Department: Room: Gender: Male Patient Account Liaison: : 1955 Requested By: Sergei Timmons Order Number: [id number] Joy MD: Tino Martell M.D. Measurements Intervals [place] Rate: 111 P: 63 NC: 227 QRS: 96 QRSD: 93 T: 53 QT: 311 QTc: 424 Interpretive Statements SINUS TACHYCARDIA WITH FIRST DEGREE AV BLOCK BORDERLINE RIGHT AXIS DEVIATION [QRS AXIS > 90] INCOMPLETE RIGHT BUNDLE BRANCH BLOCK [90+ ms QRS DURATION, TERMINAL R IN V1/V2, 40+ ms S IN I/aVL/V4/V5/V6] Compared to ECG 11/19/2023 14:27:36 First degree AV block now present Atrial abnormality no longer present Electronically Signed On 03-01-2024 22:04:55 CDT by Tino Martell M.D. [email or web address]
--- NOTE | 2024-03-01 17:58 | XRR_ITS ---
PROCEDURE INFORMATION: Exam: XR Chest Exam date and time: 03/01/2024 6:02 PM Age: 68 years old Clinical indication: Cough and shortness of breath; Additional info: Cough, congestion TECHNIQUE: Imaging protocol: Radiologic exam of the chest. Views: 1 view. COMPARISON: CR (CHEST, ) 03/26/2023 5:17 AM FINDINGS: Lungs: Patchy ground-glass opacities peripherally in the lower lung zones bilaterally with no significant changes from the comparison. There is chronic interstitial architectural distortion features most likely representing fibrosis. Central pulmonary arteries are mildly dilated but similar to prior. Pleural spaces: Chronic blunting of the costophrenic angles is unchanged. Heart/Mediastinum: Chronic cardiomegaly redemonstrated. Bones/joints: Unremarkable. XR/XR chest 1V portable [id number] IMPRESSION: 1. No definite interval changes in exam. 2. Chronic fibrotic lung changes visible. 3. No obvious acute consolidation identified.
--- NOTE | 2024-03-01 18:03 | W.ED.SOB ---
HPI - SOB/Dyspnea General: Chief Complaint: Shortness of Breath/Dyspnea Stated Complaint: sob Time Seen by Provider: 03/01/24 17:52 History of Present Illness: HPI Narrative: 68-year-old male patient comes in with shortness of breath. Patient resides at [facility] and it is [place]. Patient was reported to have shortness of breath and the [facility] was concerned of possible pneumonia versus bronchitis. Patient is on hospice at this time for COPD. Patient appears nontoxic. Patient does have some audible congestion. Patient reports headache that is chronic. Patient is a poor historian. Patient also has a history of skin cancer, diabetes mellitus type 2, chronic pain. Review of Systems General: Reports: 10 or more systems reviewed and unremarkable except in HPI and below PFSH ED PFSH: Medical History Hyperkalemia Hospital discharge follow-up Acute respiratory failure due to COVID-19 Encounter for screening for lung cancer Exertional dyspnea Encounter for smoking cessation counseling COPD (chronic obstructive pulmonary disease) MRSA carrier Centrilobular emphysema Hypoxia Type 2 diabetes mellitus COVID-19 Positive DENY (antinuclear antibody) COVID-19 vaccine dose not administered Pneumonia CAD (coronary artery disease) Prostatic hypertrophy On home oxygen therapy Usually on 2 L by nasal cannula Skin cancer Specific type unknown PVD (peripheral vascular disease) Gout CKD (chronic kidney disease) GERD (gastroesophageal reflux disease) Hypertension Diabetes mellitus Mediastinal adenopathy Anxiety disorder Tobacco use Surgical History History of cholecystectomy History of coronary artery stent placement X2 History of skin surgery Left neck for skin cancer Presence of coronary angioplasty implant and graft Family History Mother Cancer Father CAD (coronary artery disease) Social History Smoking and tobacco/nicotine status: former use of tobacco/nicotine Quit status (tobacco/nicotine): has quit using Year quit tobacco: 2022 Former quit date comment: 2 ppd X 60 years Second hand smoke exposure: Yes Alcohol intake: former Substance/Drug Use: never Caregiver/support person: Yes Lives independently: No Housing: Skilled Nursing Marital status: / service: No Current occupational status: disabled Pets and animals: Yes Do you think of yourself as: Straight/Heterosexual Current gender identity: Male Physical Exam Const: COMMON NORMALS: alert HENMT: COMMON NORMALS: normocephalic HEAD & SCALP: normocephalic Neck/C-Spine: COMMON NORMALS: full ROM Chest: COMMONS NORMALS: normal inspection of the chest Resp: COMMON NORMALS: normal respiratory effort AUSCULTATION: rhonchi Cardio: COMMON NORMALS: regular rhythm RATE: tachycardic RHYTHM: regular rhythm GI: COMMON NORMALS: Soft to palpation and non-tender PALPATION: Yes Soft to palpation Back/Pelvis: COMMON NORMALS: thoracic and lumbar spine normal to inspection Extremity: COMMON NORMALS: no pedal edema Neuro: SENSORIUM/ORIENTATION: Yes alert Skin: COMMON NORMALS: turgor normal GENERAL SKIN EXAM: turgor normal Course Vital Signs: Vital signs: Vital Signs Temperature 98.3 F 03/01/24 17:54 Pulse Rate 113 H 03/01/24 21:30 Respiratory Rate 16 03/01/24 21:30 Blood Pressure 135/69 03/01/24 21:30 Pulse Oximetry 94 03/01/24 21:30 Oxygen Delivery Me thod Simple Mask 03/01/24 21:30 Oxygen Flow Rate 5 03/01/24 18:27 MDM - SOB/Dyspnea Medical Decision Making Patient was referred to the ER for concerns of chest congestion. [facility] staff was concerned that patient may be having exacerbation of his COPD or pneumonia. On exam patient is afebrile. Respirations are 20. Patient is routinely on oxygen and at this time is on 5 L per nasal cannula and is satting at 96%. Patient's pulse rate slightly elevated at 112. Blood pressure was 148/97. Differential diagnosis includes pneumonia, exacerbation of COPD, respiratory failure, dehydration, CHF. 181, chest x-ray pleural effusion and scattered interstitial disease. Patient was ordered 40 mg of furosemide IV. 2030, Chest x-ray was read no changes from prior exam. KUB showed normal bowel gas pattern. White blood cell count is elevated 18 which is stable for patient. Patient is on chronic steroid use which probably artificially elevates the white blood cells. CRP was elevated though at 300. Urinalysis was clear. Patient's bicarb was 41. Lactic was 1.4. Patient will be placed on some doxycycline for COPD exacerbation to cover any secondary infection. Patient appears to be stable to prior exams. Patient will be discharged back to the [facility] with doxycycline and continue care as directed. 2208, daughter was concerned about the patient's head due to his complaint of a headache. CT of the head was performed and showed no abnormalities. Patient be discharged back to [facility]. Lab Data 03/01/24 18:11 03/01/24 18:11 Labs/Radiology: Radiology Impressions Chest X-Ray 03/01/24 17:58 IMPRESSION: 1. No definite interval changes in exam. 2. Chronic fibrotic lung changes visible. 3. No obvious acute consolidation identified. KUB X-Ray 03/01/24 20:31 IMPRESSION: 1. Nonspecific bowel gas pattern without bowel dilation to indicate obstruction. 2. Moderate constipation. Head CT 03/01/24 21:25 IMPRESSION: Negative for intracranial hemorrhage or mass effect. Laboratory Results WBC 18.20 10^3/uL (3.29-11.43) H 03/01/24 18:11 RBC 5.47 10^6/uL (3.85-5.65) 03/01/24 18:11 Hgb 12.70 g/dL (11.27-16.99) 03/01/24 18:11 Hct 44.8 % (37-53) 03/01/24 18:11 MCV 81.9 fl (82-101) L 03/01/24 18:11 MCH 23.2 pg (27-33) L 03/01/24 18:11 MCHC 28.3 g/dL (30-55) L 03/01/24 18:11 RDW 17.1 % (12.1-15.1) H 03/01/24 18:11 Plt Count 334 10^3/cmm (157-399) 03/01/24 18:11 MPV 9.7 fL (7.4-10.4) 03/01/24 18:11 Neut % (Auto) 83.2 % 03/01/24 18:11 Lymph % (Auto) 5.5 % 03/01/24 18:11 Long % (Auto) 10.1 % 03/01/24 18:11 Eos % (Auto) 0.1 % 03/01/24 18:11 Baso % (Auto) 0.3 % 03/01/24 18:11 Neut # (Auto) 15.15 10^3/uL (1.8-7.7) H 03/01/24 18:11 Lymph # (Auto) 1.0 10^3/uL (0.8-4.8) 03/01/24 18:11 Long # (Auto) 1.8 10^3/uL (0.2-0.9) H 03/01/24 18:11 Eos # (Auto) 0.0 10^3/uL (0.0-0.8) 03/01/24 18:11 Baso # (Auto) 0.1 10^3/uL (0.0-0.1) 03/01/24 18:11 Nucleated RBC % (auto) 0 % 03/01/24 18:11 Nucleated RBCs # 0.0 /100WBC 03/01/24 18:11 Sodium 141 mmol/L (136-145) 03/01/24 18:11 Potassium 4.3 mmol/L (3.5-5.1) 03/01/24 18:11 Chloride 92 mmol/L (98-107) L 03/01/24 18:11 Carbon Dioxide 41 mmol/L (22-29) H 03/01/24 18:11 Anion Gap 12.3 (5-19) 03/01/24 18:11 BUN 24 mg/dL (8-23) H 03/01/24 18:11 Creatinine 1.4 mg/dL (0.7-1.2) H 03/01/24 18:11 GFR Calculation 50.7 mL/min (90-130) L 03/01/24 18:11 Glucose 223 mg/dL (65-115) H 03/01/24 18:11 Calculated Osmolality 303 mOsm/kg (285-295) H 03/01/24 18:11 Lactic Acid 1.4 mmol/L (0.5-2.2) 03/01/24 18:11 Calcium 9.4 mg/dL (8.5-10.5) 03/01/24 18:11 Total Bilirubin 0.5 mg/dL (0.15-1.2) 03/01/24 18:11 AST 7 U/L (0-40) 03/01/24 18:11 ALT 11 U/L (0-41) 03/01/24 18:11 Alkaline Phosphatase 126 U/L (40-130) 03/01/24 18:11 Troponin T Baseline 57 ng/L (0-15) H 03/01/24 18:11 Troponin T 120 Minute 56.24 ng/L (0-15) H 03/01/24 20:04 Delta Troponin T -0.76 ABS# (0-10) L 03/01/24 20:04 C-Reactive Protein 346.3 mg/L (0.0-4.9) H 03/01/24 18:11 NT-Pro-B Natriuret Pep 1480 pg/mL (0-125) H 03/01/24 18:11 Total Protein 7.4 g/dL (6.6-8.7) 03/01/24 18:11 Albumin 3.0 g/dL (3.5-5.2) L 03/01/24 18:11 Globulin 4.4 g/dL (1.3-4.6) 03/01/24 18:11 Urine Color Yellow (Yellow) 03/01/24 18:46 Urine Appearance Clear (CLEAR) 03/01/24 18:46 Urine pH 5 (5-7) 03/01/24 18:46 Ur Specific [place] 1.015 (1.005-1.030) 03/01/24 18:46 Urine Protein 1+ (Negative) H 03/01/24 18:46 Urine Glucose (UA) 2+ (Normal) H 03/01/24 18:46 Urine Ketones Negative (Negative) 03/01/24 18:46 Urine Blood 2+ (Negative) H 03/01/24 18:46 Urine Nitrate Negative (Negative) 03/01/24 18:46 Urine Bilirubin Neg (Negative) 03/01/24 18:46 Urine Urobilinogen Norm mg/dL (Negative) 03/01/24 18:46 Ur Leukocyte Esterase Negative (Negative) 03/01/24 18:46 Urine RBC 10-15 /hpf (0-2) H 03/01/24 18:46 Urine WBC 0-4 /hpf (0-5) H 03/01/24 18:46 Ur Squamous Epith Cells None /hpf (0-5) 03/01/24 18:46 Amorphous Sediment Trace /hpf 03/01/24 18:46 Urine Bacteria 1+ /hpf (NONE) H 03/01/24 18:46 Fine Granular Casts 0-4 /lpf H 03/01/24 18:46 Coarse Granular Casts 0-4 /lpf H 03/01/24 18:46 Adenovirus (PCR) Not detected (NOT DETECT) 03/01/24 18:45 C. pneumoniae DNA (PCR) Not detected (NOT DETECT) 03/01/24 18:45 Coronavirus 229E (PCR) Not detected (NOT DETECT) 03/01/24 18:45 Human Metapneumovir PCR Not detected (NOT DETECT) 03/01/24 18:45 Influenza A (H1) PCR Not detected (NOT DETECT) 03/01/24 18:45 Influ A (H1/09) PCR Not detected (NOT DETECT) 03/01/24 18:45 Influenza A (H3) PCR Not detected (NOT DETECT) 03/01/24 18:45 Influenza Type A (PCR) Not detected (NOT DETECT) 03/01/24 18:45 Influenza Type B (PCR) Not detected (NOT DETECT) 03/01/24 18:45 M. pneumoniae (PCR) Not detected (NOT DETECT) 03/01/24 18:45 Parainfluenza 1 (PCR) Not detected (NOT DETECT) 03/01/24 18:45 Parainfluenza 2 (PCR) Not detected (NOT DETECT) 03/01/24 18:45 Parainfluenza 3 (PCR) Not detected (NOT DETECT) 03/01/24 18:45 Parainfluenza 4 (PCR) Not detected (NOT DETECT) 03/01/24 18:45 RSV Type A (PCR) Not detected (NOT DETECT) 03/01/24 18:45 RSV Type B (PCR) Not detected (NOT DETECT) 03/01/24 18:45 Entero/Rhino (PCR) Not detected (NOT DETECT) 03/01/24 18:45 SARS-CoV-2 (PCR) Not detected (NOT DETECT) 03/01/24 18:45 All radiology interpretation(s) finalized by discharge EKG Data EKG 1: I personally reviewed and interpreted this EKG as follows: EKG Interpretation Date: 03/01/24 EKG interpretation time: 18:07 Prior EKG tracings: not available for review Interpretation: EKG shows a sinus tachycardia with a regular rate at [address] elevation or ectopy is noted. No prior exam was available for comparison. Artifact is present on the exam. Computer Generated Interpretation: Sinus tachycardia with first-degree AV block, borderline right axis deviation, incomplete right bundle branch block, abnormal EKG, unconfirmed report. Discharge Plan Discharge Patient Disposition: Home Clinical Impression: COPD (chronic obstructive pulmonary disease) Qualifiers: COPD type: emphysema Emphysema type: centrilobular Qualified Code(s): J43.2 - Centrilobular emphysema Condition: Stable Prescriptions: New doxycycline hyclate 100 mg tablet 100 mg PO BID 7 Days Qty: 14 0RF No Action aspirin [Adult Low Dose Aspirin] 81 mg tablet,delayed release (DR/EC) 81 mg PO DAILY atorvastatin 40 mg tablet 40 mg PO BEDTIME buspirone 10 mg tablet 10 mg PO TID tamsulosin 0.4 mg capsule 0.4 mg PO BEDTIME ferrous sulfate 325 mg (65 mg iron) tablet 325 mg PO DAILY bisacodyl 10 mg Suppository 10 mg MI DAILY PRN (Reason: Constipation) Enema Disposable 19-7 gram/118 mL Enema 118 ml MI PRN PRN (Reason: Constipation) sucralfate 1 gram tablet 1 g PO BID venlafaxine 150 mg Capsule,Extended Release 24hr 150 mg PO DAILY lorazepam 0.5 mg Tablet 0.5 mg PO Q8H PRN (Reason: Anxiety) magnesium L-lactate 84 mg Tablet Extended Release 84 mg PO DAILY acetaminophen 325 mg Tablet 650 mg PO Q6H PRN (Reason: Pain) hydrocortisone [Preparation H Hydrocortisone] 1 % Cream 1 applic TOPICAL Q8H PRN (Reason: Hemorrhoids) insulin aspart U-100 [Novolog FlexPen U-100 Insulin] 100 unit/mL (3 mL) insulin pen 10 unit SUBCUT TIDWM insulin glargine [Basaglar KwikPen U-100 Insulin] 100 unit/mL (3 mL) insulin pen 30 unit SUBCUT BEDTIME formoterol fumarate [Perforomist] 20 mcg/2 mL solution for nebulization 2 ml inhalation BID Qty: 120 0RF Yupelri 175 mcg/3 mL solution for nebulization 175 mcg inhalation DAILY Qty: 90 0RF budesonide 1 mg/2 mL suspension for nebulization 1 mg inhalation BID Qty: 60 0RF furosemide 20 mg Tablet 20 mg PO DAILY@0800 Qty: 30 0RF fludrocortisone 0.1 mg Tablet 0.2 mg PO DAILY Qty: 30 0RF prednisone 5 mg tablet 5 mg PO DAILY citalopram 20 mg tablet 20 mg PO DAILY ropinirole 0.25 mg tablet 0.25 mg PO BID hydrocodone-acetaminophen 7.5-325 mg tablet 1 tab PO QID Miralax 17 gram/dose Powder 17 g PO DAILY PRN (Reason: Constipation) Rx Instructions: prn order Miralax 17 gram/dose Powder 17 g PO DAILY Rx Instructions: maintenance order montelukast 10 mg tablet 10 mg PO BEDTIME sennosides 8.6 mg Tablet 8.6 mg PO DAILY magnesium hydroxide [Milk of Magnesia] 400 mg/5 mL Suspension 30 ml PO DAILY PRN (Reason: Constipation) gabapentin 300 mg capsule 300 mg PO TID naloxone 4 mg/actuation spray,non-aerosol 1 spray INTRANASAL Q1-2M PRN (Reason: Opioid Overdose) omeprazole 40 mg Capsule,Delayed Release(Dr/Ec) 40 mg PO DAILY benzonatate 100 mg capsule 100 mg PO Q8H PRN (Reason: Cough) insulin aspart U-100 [Novolog FlexPen U-100 Insulin] 100 unit/mL (3 mL) Insulin Pen See Rx Instructions .ROUTE .COMPLEX Rx Instructions: inject per sliding scale subcutaneously before meals 181-220=2 units 221-260=4 units 261-300=6 units 301-350=8 units 351-400=10 units 401-450=12 units if greater than 450 give 14 units if lower than 60 or greater than 500 call physician Selsualice Blue (pyrithione zinc) 1 % Shampoo See Rx Instructions .ROUTE .COMPLEX Rx Instructions: Apply to scalp topically as needed for use in showers as needed for dry scalp. Discharge Orders: Discharge ED (Routine); Ordered 03/01/24 Ordered By: Sergei Galeas Referrals: Alfredito Muro DO [Primary Care Provider] - Discharge Diet: Usual diet Discharge Activity: Increase activity as tolerated Patient Instructions: COPD (Chronic Obstructive Pulmonary Disease) (ED) Activity Restrictions/Additional Instructions: Continue with routine care. Antibiotics as directed. Follow-up with primary care in 1 week. Return to ED for new concerns. Coding Level of Care Code ED Pressure Controller for Naresh Pepper
[2024-03-01] MEDS: ipratropium-albuterol 3 mL Neb INHALATION (18:25)
[2024-03-01 18:38] LABS: Basophils # 0.1 10^3/uL (0.0-0.1); Basophils % 0.3 %; Eosinophils % 0.1 %; Hematocrit 44.8 % (37-53); Lymphocytes % 5.5 %; Mean Corpuscular HGB Conc 28.3 g/dL (30-55); Mean Corpuscular Hemoglobin 23.2 pg (27-33); Mean Corpuscular Volume 81.9 fl (82-101); Mean Platelet Volume 9.7 fL (7.4-10.4); Monocytes # 1.8 10^3/uL (0.2-0.9); Monocytes % 10.1 %; Neutrophils # 15.15 10^3/uL (1.8-7.7); Neutrophils % 83.2 %; Nucleated Red Blood Cells % 0 %; Platelet Count 334 10^3/cmm (157-399); Red Blood Count 5.47 10^6/uL (3.85-5.65); Red Cell Distribution Width 17.1 % (12.1-15.1)
[2024-03-01] MEDS: metoclopramide 5 mg/mL SDV 2 mL 10 MG IVP (18:38)
[2024-03-01] MEDS: diphenhydrAMINE 50 mg/mL SDV 1mL 25 MG IVP (18:38)
[2024-03-01] MEDS: dexamethasone 10 mg/mL INJ IVP (18:38)
[2024-03-01 19:14] LABS: Troponin(5th) Baseline 57 ng/L (0-15)
[2024-03-01 19:21] LABS: Alanine Aminotransferase 11 U/L (0-41); Alkaline Phosphatase 126 U/L (40-130); Anion Gap 12.3 (5-19); Aspartate Amino Transferase 7 U/L (0-40); Blood Urea Nitrogen 24 mg/dL (8-23); C Reactive Protein 346.3 mg/L (0.0-4.9); Calcium 9.4 mg/dL (8.5-10.5); Chloride 92 mmol/L (98-107); Creatinine Clr Calc Pharmacy 50.1083; Globulin 4.4 g/dL (1.3-4.6); Glomerular Filtration Rate 50.7 mL/min (90-130); Glucose 223 mg/dL (65-115); NT Pro B Type Natriuretic Pept 1480 pg/mL (0-125); Osmolality Calculated 303 mOsm/kg (285-295); Potassium 4.3 mmol/L (3.5-5.1); Sodium 141 mmol/L (136-145); Total Bilirubin 0.5 mg/dL (0.15-1.2); Total Protein 7.4 g/dL (6.6-8.7)
[2024-03-01] MEDS: FUROsemide 10 mg/mL SDV 4mL 40 MG IVP (19:24)
[2024-03-01 19:25] LABS: Carbon Dioxide 41 mmol/L (22-29)
[2024-03-01 19:41] LABS: Lactic Sepsis W/Reflex 1.4 mmol/L (0.5-2.2)
--- NOTE | 2024-03-01 19:54 | PC.NURSE ---
FAMILY UPDATED ON PT CONDITION AND PROGRESS. DAUGHTER VERBALIZED UNDERSTANDING AND ALL QUESTIONS WERE ANSWERED.
[2024-03-01 20:09] LABS: Add Urine Microscopic? YES; Bilirubin Urine Neg (Negative); Blood Urine 2+ (Negative); Glucose Urine UA 2+ (Normal); Ketones Urine Negative (Negative); Leukocyte Esterase Urine Negative (Negative); Nitrate Urine Negative (Negative); Protein Urine 1+ (Negative); Specific Gravity, Urine 1.015 (1.005-1.030); Urine Appearance Clear (CLEAR); Urine Color Yellow (Yellow); Urobilinogen Urine Norm (Negative); WBC Urine 0-4 /hpf (0-5); pH Urine 5 (5-7)
[2024-03-01 20:10] LABS: Add Urine Culture? Yes; Amorphous Sediment Urine TRACE /hpf; Bacteria Urine 1+ /hpf; Coarse Granular Casts Urine 0-4 /lpf; Fine Granular Casts Urine 0-4 /lpf
--- NOTE | 2024-03-01 20:31 | XRR_ITS ---
PROCEDURE INFORMATION: Exam: XR Abdomen Exam date and time: 03/01/2024 8:40 PM Age: 68 years old Clinical indication: Bloating and constipation TECHNIQUE: Imaging protocol: Radiologic exam of the abdomen. Views: Frontal supine view of the abdomen. 1 View. COMPARISON: CT abdomen pelvis con [id number] 11/19/2023 1:40 PM FINDINGS: Gastrointestinal tract: Nonspecific bowel gas pattern without bowel dilation to indicate obstruction. Moderate constipation. Bones/joints: Unremarkable. XR/XR KUB [id number] IMPRESSION: 1. Nonspecific bowel gas pattern without bowel dilation to indicate obstruction. 2. Moderate constipation.
[2024-03-01 20:32] LABS: Troponin 5 2HR 56.24 ng/L (0-15)
[2024-03-01 20:35] LABS: Troponin 5 2HR Delta -0.76 ABS# (0-10)
[2024-03-01 20:38] LABS: Adenovirus Not Detected (NOT DETECT); Chlamydia Pneumoniae Not Detected (NOT DETECT); Coronavirus 229E,HKU1,NL63,OC4 Not Detected (NOT DETECT); Human Metapneumovirus Not Detected (NOT DETECT); Human Rhinovirus/Enterovirus Not Detected (NOT DETECT); Influenza A Not Detected (NOT DETECT); Influenza A H1 Not Detected (NOT DETECT); Influenza A H1-2009 Not Detected (NOT DETECT); Influenza A H3 Not Detected (NOT DETECT); Influenza B Not Detected (NOT DETECT); Mycoplasma Pneumoniae Not Detected (NOT DETECT); Parainfluenza Virus Type 1 Not Detected (NOT DETECT); Parainfluenza Virus Type 2 Not Detected (NOT DETECT); Parainfluenza Virus Type 3 Not Detected (NOT DETECT); Parainfluenza Virus Type 4 Not Detected (NOT DETECT); Respiratory Syncytial Virus A Not Detected (NOT DETECT); Respiratory Syncytial Virus B Not Detected (NOT DETECT); SARS-COV-2 Not Detected (NOT DETECT)
[2024-03-01] MEDS: doxycycline 100 mg Tablet PO (21:05)
--- NOTE | 2024-03-01 21:25 | CTR_ITS ---
PROCEDURE INFORMATION: Exam: CT Head Without Contrast Exam date and time: 03/01/2024 9:48 PM Age: 68 years old Clinical indication: Pain; Headache TECHNIQUE: Imaging protocol: Computed tomography of the head without contrast. Radiation optimization: All CT scans at this facility use at least one of these dose optimization techniques: automated exposure control; mA and/or kV adjustment per patient size (includes targeted exams where dose is matched to clinical indication); or iterative reconstruction. COMPARISON: CT neck w con* [id number] 02/08/2018 9:52 AM RADIATION DOSE METRICS: Total DLP (mGy-cm): 1054.9 FINDINGS: Brain: Mild diffuse white matter disease likely reflecting chronic microvascular ischemic changes. Cerebral ventricles: No ventriculomegaly. Paranasal sinuses: Visualized sinuses are unremarkable. No fluid levels. Mastoid air cells: Visualized mastoid air cells are well aerated. Bones: Unremarkable. No acute fracture. Soft tissues: Unremarkable. CT/CT head wo con* [id number] IMPRESSION: Negative for intracranial hemorrhage or mass effect.
--- NOTE | 2024-03-01 23:30 | PC.NURSE ---
Akhtar catheter dc'd, pt tolerated well
[2024-03-02 01:00] VITALS: BP 166/93; PULSE 109; O2SAT 94
== END 2024-03-02 01:12 | disposition home or self-care (01) ==
PROVIDERS: Emergency Medicine; Emergency Provider Nurse Practitioner Family; PCP Internal Medicine
DX: J43.2 Centrilobular emphysema (principal); Z79.82 Long term (current) use of aspirin; Z79.4 Long term (current) use of insulin; R00.0 Tachycardia, unspecified; I45.10 Unspecified right bundle-branch block; I44.0 Atrioventricular block, first degree; Z11.52 Encounter for screening for COVID-19; Z87.891 Personal history of nicotine dependence; Z95.5 Presence of coronary angioplasty implant and graft; E11.22 Type 2 diabetes mellitus with diabetic chronic kidney disease; I12.9 Hypertensive chronic kidney disease with stage 1 through stage 4 chronic kidney disease, or unspecified chronic kidney disease; N18.9 Chronic kidney disease, unspecified; Z99.81 Dependence on supplemental oxygen; I25.10 Atherosclerotic heart disease of native coronary artery without angina pectoris
CPT/HCPCS: 36415; 51702; 70450; 71045; 74018; 80053; 81001; 83605; 83880; 84484; 85025; 86140; 87040; 87086; 87486; 87581; 87633; 93005; 94640; 96374; 96375; 99285; J1100; J1200; J1940; J2765